=== PATIENT | male | born 1930 | race Caucasian/White ===

== ENCOUNTER 2016-05-30 09:53 | Inpatient (IN) | payer OTHER ==
[~2016-05-30] VITALS: Ht 170.2 cm; Wt 73.5 kg
[2016-05-30] MEDS ORDERED: FUROSEMIDE20 M1 PO (09:59)
[2016-05-30] MEDS ORDERED: SPIRONOLACTONE25 M1 PO (09:59)
[2016-05-30] MEDS ORDERED: VITAMIN B-121000 MC3 PO (10:00)
[2016-05-30] MEDS ORDERED: CARVEDILOL12.5 M1 PO (10:01)
[2016-05-30] MEDS ORDERED: CLOPIDOGREL75 M1 PO (10:01)
[2016-05-30] MEDS ORDERED: ISOSORBIDE MONO30 M1 PO (10:01)
[2016-05-30] MEDS ORDERED: ATORVASTATIN CA40 M1 PO (10:02)
[2016-05-30] MEDS ORDERED: VITAMIN D31000 UNI2 PO (10:03)
--- NOTE | 2016-05-30 10:10 | ED MVC/FALL/TRAUMA COMPLAINT ---
History of Present Illness General Chief Complaint: Fall Stated Complaint: BIBA MECHANICAL FALL Source: patient, old records, EMS Exam Limitations: no limitations Vital Signs & Intake/Output Vital Signs & Intake/Output Vital Signs Date Time Temp Pulse Resp B/P Pulse O2 O2 Flow FiO2 Ox Delivery Rate 06/01 1735 98.3 118/70 93 Room Air 06/01 1609 98.2 67 18 108/60 93 06/01 1153 Room Air 2.0L 06/01 0843 97.7 93 18 120/60 94 Room Air 06/01 0835 120/60 05/31 2340 97.8 70 18 144/68 95 Room Air 05/31 2114 118/64 ED Intake and Output 06/01 0000 05/31 1200 Intake Total 525 1150 Output Total 1850 950 Balance -1325 200 Intake, IV 225 1150 Intake, Oral 300 0 Number 0 Bowel Movements Output, Other 200 Output, Urine 1850 750 Allergies Coded Allergies: acetaminophen (From PERCOCET) (HALLUCINATIONS 05/30/16) oxycodone (From PERCOCET) (HALLUCINATIONS 05/30/16) Reconcile Medications Atorvastatin Calcium 40 MG TABLET 1 TAB PO DAILY CHOLESTEROL (Reported) Carvedilol 12.5 MG TABLET 1 TAB PO BID HEART (Reported) Cholecalciferol (Vitamin D3) (Unknown Strength) TABLET (Unknown Dose) PO BID SUPPLEMENT (Reported) Clopidogrel Bisulfate (Clopidogrel) 75 MG TABLET 1 TAB PO DAILY BLOOD THINNER (Reported) Cyanocobalamin (Vitamin B-12) 1,000 MCG TABLET 1 TAB PO DAILY SUPPLEMENT ( Reported) Furosemide 20 MG TABLET 1 TAB PO DAILY WATER PILL (Reported) Isosorbide Mononitrate (Isosorbide Mononitrate ER) 30 MG TAB.ER.24H 1 TAB PO DAILY HEART (Reported) Spironolactone 25 MG TABLET 1 TAB PO DAILY HEART (Reported) Triage Note: BIBA FROM HOME, FELL AT HOME, MISSED LAST STAIR, C/O R HIP PAIN, DENIES CHEST PAIN, DIZZINESS, SOB PRIOR TO FALL. MOVING EXTREMITIES, NO ROTATION NOTED. + PEDAL PULSES. Triage Nurses Notes Reviewed? yes HPI: Patient is an 85 year old male presents complaining of right hip and pelvic pain s/p fall. Patient was walking down stairs this morning when he missed a stair and fell onto his right side. Patient was on the ground for approximately 20 minutes. Pain is moderate to the right hip and pelvis, severe with palpation and range of motion. Patient denies head injury, loss of consciousness, neck pain, back pain, numbness, syncope, lightheadedness, chest pain. (ARABELLA NOBLE) Past History Travel History Traveled to [place] past 21 day No Medical History Any Pertinent Medical History? see below for history Neurological: CVA Cardiovascular: hypertension, hyperlipidemia, myocardial infarction Respiratory: pulmonary nodule? Gastrointestinal: AAA Surgical History Surgical History: bilateral knee replacements Psychosocial History What is your primary language Turkish Tobacco Use: Never used ETOH Use: occasional use Family History Hx Contributory? No (ARABELLA NOBLE) Review of Systems Review of Systems Constitutional: Reports: no symptoms. Eyes: Reports: no symptoms. Ears, Nose, Throat, Mouth: Reports: no symptoms. Respiratory: Denies: cough, short of breath. Cardiovascular: Denies: chest pain, syncope. Gastrointestinal/Abdominal: Denies: abdominal pain, vomiting. Genitourinary: Reports: no symptoms. Musculoskeletal: Reports: see HPI. Skin: Reports: no symptoms. Neurological/Psychological: Denies: headache, numbness. (ARABELLA NOBLE) Physical Exam Physical Exam General Appearance: well developed/nourished, alert, awake Head: atraumatic Eyes: Bilateral: normal appearance, PERRL, EOMI. Ears, Nose, Throat, Mouth: hearing grossly normal, moist mucous membrane Neck: normal inspection, supple, full range of motion, no midline tenderness, no paraspinal tenderness Respiratory: normal breath sounds, chest non-tender, no respiratory distress, lungs clear Cardiovascular: regular rate/rhythm Peripheral Pulses: 2+ tibialis posterior (R), 2+ tibialis posterior (L), 2+ dorsalis pedis (R), 2+ dorsalis pedis (L) Gastrointestinal: normal bowel sounds, soft, non-tender Back: normal inspection, normal range of motion, no vertebral tenderness, pain increases to right hip with lumbar flexion Extremities: tenderness right lateral hip and right pelvis. No tenderness to left lower extremity, right upper extremity or left upper extremity Normal left hip flexion actively. Pain increases with right hip flexion. Neurologic/Psych: no motor/sensory deficits, awake, alert, oriented x 3, normal mood/affect, professional model II-XII nml as tested Skin: intact, normal color, warm/dry Core Measures ACS in differential dx? No Severe Sepsis Present: No Septic Shock Present: No (JERAMY COHEN,ARABELLA) Progress Differential Diagnosis: aoritic dissection, abd injury, C/T/L spine injury, ext injury, ICH, pelvis injury, pnemothorax, spinal cord injury Plan of Care: Orders Procedure Date/time Status Anticipated Discharge 06/03 UNK Active PROTHROMBIN TIME 06/02 06 Active CBC WITHOUT DIFFERENTIAL 06/02 06 Active Nursing Misc 06/01 1431 Active PHOSPHORUS 06/01 0640 Complete MAGNESIUM 06/01 0640 Complete CALCIUM 06/01 0640 Complete CBC WITHOUT DIFFERENTIAL 06/01 06 Complete BASIC ELECTROLYTES PLUS BUN&CR 06/01 06 Complete PT Evaluate & Treat 06/01 UNK Active Therapeutic Activities 06/01 UNK Complete Therapeutic Exercise 06/01 UNK Complete Gait Training 06/01 UNK Complete Lab Add-on Test 06/01 UNK Active Granado, Insertion/Removal/Asses 05/31 UNK Complete Current Medications Sig/Chirag Start time Last Medication Dose Stop Time Status Admin Senna/Docusate Sodium 1 TAB BID PRN 06/01 1615 AC (Senokot S) Polyethylene Glycol 17 GM DAILY 06/01 1607 AC (Miralax) Cyclobenzaprine HCl 5 MG BID PRN 06/01 0745 AC (Flexeril 5MG Tab) Tramadol HCl 50 MG TID PRN 06/01 0745 AC (Ultram) Morphine Sulfate 4 MG Q4P PRN 05/30 1600 AC (Morphine) Laboratory Tests 06/01/16 0640: Anion Gap 6, Estimated GFR 48 L, BUN/Creatinine Ratio 18.6, Calcium 8.6, Phosphorus 2.9, Magnesium 2.0, PT 13.5 H, INR 1.29 H, CBC w Diff NO MAN DIFF REQ, RBC 3.04 L, MCV 99.7 H, MCH 33.7 H, RDW 14.4, MPV 8.4, Gran % 66.8, Lymphocytes % 18.5 L, Monocytes % 10.8 H, Eosinophils % 3.5, Basophils % 0.4, Absolute Granulocytes 4.0, Absolute Lymphocytes 1.1 L, Absolute Monocytes 0.6, Absolute Eosinophils 0.2, Absolute Basophils 0, PUBS MCHC 33.8 Patient declined pain medication on initial exam. 1025: Patient now requesting medication for pain. Patient's daughter requesting no opiates if possible. IV ofirmev ordered. Discussed with Dr. Finney. 1120: Discussed results of x-ray with the patient and his daughter. CT scan of the pelvis ordered. 1130: Patient now reporting right shoulder pain, and he is unsure now if he hit his head when he fell. Patient re-evaluated. Tenderness right anterior shoulder. Full active range of motion of right upper extremity. Additional CT imgaing ordered. Discussed with Dr. Ang 1330: Discussed with Dr. Gonzalez: will review CT scans. If fracture does not extend into the intertroch then would be nonoperative 1344: Discussed with Dr. Larson for admission 1420: Dr. Gonzalez reviewed CT scan, CT scan unclear greater troch vs inter troch, recommends MRI for further evaluation. (JERAMY COHEN,ARABELLA) Diagnostic Imaging: Viewed by Me: Radiology Read. Discussed w/RAD: Radiology Read. Radiology Impression: PATIENT: MATTI HACKETT PRESENT AGE: 85 PATIENT ACCOUNT NO: [id number] : 30 LOCATION: [facility] ORDERING PHYSICIAN: ARABELLA COHEN SERVICE DATE: 05/30/16 EXAM TYPE: RAD - XRY-HIP 2-3 VIEWS, RIGHT EXAMINATION: XR HIP, RIGHT CLINICAL INFORMATION: Evaluate for fracture. COMPARISON: None. TECHNIQUE: AP pelvis and 2 views of the right hip FINDINGS: Normal bony dilatation. Subtle cortical irregularity noted along the right greater trochanteric region no gross fracture lines identified. Evaluation on the lateral radiograph is limited. Degenerative changes bilateral hips. Patient has endovascular aortoiliac stent. Surgical clip is bilateral groins. IMPRESSION: Osseous irregularity right greater trochanteric region . No gross fracture lines identified. If clinical concern for fracture, CT scan may be of value. DICTATED BY: MARCUS ALONSO MD DATE/TIME DICTATED:1105 TWISTING PRESS OPERATOR:JASMIN DATE/TIME TRANSCRIBED:05/30/161105 CONFIDENTIAL, DO NOT COPY WITHOUT APPROPRIATE AUTHORIZATION. <Electronically signed in Other Vendor System> SIGNED BY: MARCUS ALONSO MD 05/30/16 1113, PATIENT: MATTI HACKETT PRESENT AGE: 85 PATIENT ACCOUNT NO: [id number] : 30 LOCATION: [facility] ORDERING PHYSICIAN: ARABELLA COHEN SERVICE DATE: 05/30/16 EXAM TYPE: CAT - CT CERV SPINE WO IV CONTRAST; CT HEAD WO IV CONTRAST EXAMINATION: CT HEAD W/O IV CONTRAST CT CERVICAL SPINE W/O IV CONTRAST CLINICAL INFORMATION: 85-year-old male with neck pain after fall. Possible intracranial bleed. COMPARISON: CT of the head from . TECHNIQUE: Head - Contiguous axial imaging of the head was performed from the skull base to the vertex without the administration of intravenous contrast, and axial images reconstructed at 0.625 mm , 2.5 mm and 5 mm slice thickness. Cervical spine - Volumetric, helical CT acquisition of the cervical spine was obtained without contrast; in addition to the standard set of axial images, multiplanar reformatted images were provided in the coronal and sagittal imaging planes. DLP: 948 mGy-cm (total) FINDINGS: HEAD: There is an area of chronic encephalomalacia located high within the right cerebral hemisphere at the level of the postcentral gyrus. No signs of an acute major vascular territory infarction, hemorrhage, extra-axial fluid collection, focal mass effect or midline shift. There is atherosclerotic calcification of the cavernous carotid and vertebral arteries. There is an old, small lacunar infarction of the left caudate head. Mild atrophy of cerebral and cerebellar hemispheres associated with symmetric prominence of the ventricles and sulci. The calvarium is intact and the visualized paranasal sinuses, mastoid air cells and middle ear cavities are clear. There have been ocular lens extractions. CERVICAL SPINE: The occipital condyles, atlas, axis and atlantoaxial articulation are intact. No acute fractures within anterior or posterior elements of the degenerated cervical spine. Chondrocalcinosis of intervertebral discs and of the transverse ligament located posterior to the dens. Multilevel degenerative disc space narrowing and osteophyte formation, with degenerative disc disease pronounced at C5-C6 and C6-C7. There is lack of lordotic curvature of the degenerated spine. There is multilevel, predominantly left-sided facet osteoarthritis. At C3-C4, the facet osteoarthritis and mild disc degeneration are associated with 2-3 mm anterolisthesis of C3 on C4. Also, there is minimal degenerative anterolisthesis of C4 on C5. The uncovertebral joint hypertrophy of C5-C6 and C6-C7 results in severe bilateral neural foraminal stenosis at these levels. No prevertebral soft tissue edema or paraspinal hematoma. Thyroid gland is unremarkable. No pathologic sized lymph nodes within the examined neck. No acute findings within the lung apices. IMPRESSION: 1. No acute intracranial pathology compared to 2. No acute fractures within the degenerated cervical spine. 3. Moderate -to-severe degenerative disc disease and uncovertebral joint hypertrophy of C5- C6 and C6-C7. There is severe bilateral neural foraminal stenosis at these levels. . DICTATED BY: ANGEL SERNA MD DATE/TIME DICTATED:05/30/161240 TWISTING PRESS OPERATOR:JASMIN DATE/TIME TRANSCRIBED:05/30/161240 CONFIDENTIAL, DO NOT COPY WITHOUT APPROPRIATE AUTHORIZATION. <Electronically signed in Other Vendor System> SIGNED BY: ANGEL SERNA MD 05/30/16 1255, PATIENT: MATTI HACKETT PRESENT AGE: 85 PATIENT ACCOUNT NO: [id number] : 30 LOCATION: [facility] ORDERING PHYSICIAN: ARABELLA COHEN SERVICE DATE: 05/30/16 EXAM TYPE: CAT - CT CHEST WO IV CONTRAST; CT PELVIS WO IV CONTRAST EXAMINATION: CT CHEST AND CT PELVIS WITHOUT CONTRAST CLINICAL INFORMATION: Status post fall. Chest wall pain. COMPARISON: Chest x-ray most recent prior dated 04/28/2014 CT abdomen and pelvis dated 11/22/2011 TECHNIQUE: Helical scanning was performed with submillimeter collimation through the pelvis. Sagittal and coronal multiplanar 2-D reconstructions were obtained. DLP: 341.67 (chest) and mGy-cm. FINDINGS: CHEST LUNGS: No evidence of pneumothorax. Stable 0.4 cm nodular opacity right upper lobe (series 3 image 28) Stable 0.4 cm nodule left lower lobe (series 3 image 34). Pleural-based plaque-like nodular opacity right lower lobe (series 3 image 34). Dependent atelectatic changes. MEDIASTINUM: Atherosclerotic disease with intimal calcification of the aorta and the coronary arteries. Ectatic ascending aorta noted again. Slight interval increase in the size of the right precarinal lymph nodes measuring approximately 1 cm (series 2 image 24). Smaller mediastinal lymph nodes identified. Unremarkable thyroid gland. No evidence of mediastinal hematoma. CHEST WALL: No gross evidence of chest wall hematoma. UPPER ABDOMEN: Aneurysmal dilatation noted again at the level of the renal arteries measuring approximately 5 cm in the transverse diameter. It demonstrates slight interval increase compared to the previous examination. Endovascular aortic stent incompletely included in examination. OSSEOUS STRUCTURES: No acute osseous abnormality. Chronic degenerative changes. No acute fracture lines identified PELVIS: There is a minimally displaced fracture right greater trochanter best visualized on the coronal reformatted images (image [id number]) The remaining right hip is intact. No obvious extension into the intertrochanteric region. Degenerative changes bilateral hips and lower lumbar spine. Adjacent soft tissues do not demonstrate any gross hematoma formation. Visualized bowel loops do not demonstrate any acute abnormality. Aortoiliac endovascular stents are partially visualized. Unremarkable urinary bladder. No abnormal fluid collection. OSSEOUS STRUCTURES: Minimally displaced right greater trochanteric fracture. IMPRESSION: 1. Stable previously seen pulmonary nodules. New pleural-based plaque-like nodular opacity right lower lobe. 2. Mild interval increase in the right precarinal lymph node measuring 1 cm in short axis. Monitoring of the CT chest finding is recommended. 3. Slight interval increase in the known abdominal aortic aneurysm. Aneurysmal dilatation measures approximately 5 cm in the transverse diameter. 4. Mildly displaced right greater trochanteric fracture. No evidence of extension into the intertrochanteric region. DICTATED BY: MARCUS ALONSO MD DATE/TIME DICTATED:05/30 TWISTING PRESS OPERATOR:JASMIN DATE/TIME TRANSCRIBED:05/30/161236 CONFIDENTIAL, DO NOT COPY WITHOUT APPROPRIATE AUTHORIZATION. <Electronically signed in Other Vendor System> SIGNED BY: MARCUS ALONSO MD 05/30/16 1315, PATIENT: MATTI HACKETT PRESENT AGE: 85 PATIENT ACCOUNT NO: [id number] : 30 LOCATION: [facility] ORDERING PHYSICIAN: ARABELLA COHEN SERVICE DATE: 05/30/164773 EXAM TYPE: RAD - XRY-SHOULDER COMPLETE-RIGHT EXAMINATION: XR SHOULDER, RIGHT CLINICAL INFORMATION: Pain. Evaluate for fracture. COMPARISON: X-ray chest dated 12/30/2015 TECHNIQUE: 3 views FINDINGS: Evaluation of the proximal right humerus and humeral head is limited due to internal rotation. No acute fracture lines appreciated. No gross dislocation. Mild subluxation cannot be excluded. However, somewhat similar appearance was seen on the prior chest x-ray. Slight widening of the right acromion clavicular joint also seen on the previous examination with no significant interval change. Subtle distal clavicular osteolysis cannot be excluded. Differential possibility includes old postoperative change. IMPRESSION : 1. No acute fracture identified. Evaluation limited due to internal rotation of the right humeral head. 2. Stable right acromioclavicular joint. DICTATED BY: MARCUS ALONSO MD DATE/TIME DICTATED:05/30/161405 TWISTING PRESS OPERATOR:JASMIN DATE/TIME TRANSCRIBED:05/30/161405 CONFIDENTIAL, DO NOT COPY WITHOUT APPROPRIATE AUTHORIZATION. <Electronically signed in Other Vendor System> SIGNED BY: MARCUS ALONSO MD 05/30/16 1412 Initial ED EKG: initial EKG with significant artifact unclear if atrial fibrillation versus sinus rhythm. EKG repeated showing sinus rhythm with right bundle branch block and left anterior fascicular block similar to previous EKG Prior EKG: unchanged (ARABELLA NOBLE) Departure Departure Time of Disposition: 1420 Disposition: STILL A PATIENT Condition: Stable Clinical Impression Primary Impression: Abdominal aortic aneurysm (AAA) Secondary Impressions: Closed right hip fracture Qualifiers: Encounter type: initial encounter Qualified Code: S72.001A - Fracture of unspecified part of neck of right femur, initial encounter for closed fracture Pulmonary nodules Referrals: NAY LARSON MD (PCP/Family) Referred to [facility] as new patient No Departure Forms: Customer Survey General Discharge Information Admission Note Spoke With: NAY LARSON MD Documentation of Exam: Documentation of any treatments & extenuating circumstances including Concerns Regarding Discharge (functional status, medication knowledge or non-compliance, living conditions, etc.) that warrant an admission rather than observation: Orthopedic consultation, physical therapy consultation, requiring IV medication for pain control. Patient unable to sit up or attempt cannulation secondary to pain. (ARABELLA NOBLE) PA/INTRANET SUPPORT Co-Sign Statement Statement: ED Attending supervision documentation- [X] I saw and evaluated the patient. I have also reviewed all the pertinent lab results and diagnostic results. I agree with the findings and the plan of care as documented in the PA's/INTRANET SUPPORT's documentation. [] I have reviewed the ED Record and agree with the PA's/IN[employer] SUPPORT's documentation. [] Additions or exceptions (if any) to the PAs/INTRAN[employer] SUPPORT's note and plan are summarized below: [] (LIAM VASQUEZ,BALDEV Mtz)
--- NOTE | 2016-05-30 11:13 | RADIOLOGY REPORT ---
EXAMINATION: XR HIP, RIGHT CLINICAL INFORMATION: Evaluate for fracture. COMPARISON: None. TECHNIQUE: AP pelvis and 2 views of the right hip FINDINGS: Normal bony dilatation. Subtle cortical irregularity noted along the right greater trochanteric region no gross fracture lines identified. Evaluation on the lateral radiograph is limited. Degenerative changes bilateral hips. Patient has endovascular aortoiliac stent. Surgical clip is bilateral groins. IMPRESSION: Osseous irregularity right greater trochanteric region . No gross fracture lines identified. If clinical concern for fracture, CT scan may be of value.
--- NOTE | 2016-05-30 12:55 | CT SCAN REPORT ---
EXAMINATION: CT HEAD W/O IV CONTRAST CT CERVICAL SPINE W/O IV CONTRAST CLINICAL INFORMATION: 85-year-old male with neck pain after fall. Possible intracranial bleed. COMPARISON: CT of the head from 01/05/2016. TECHNIQUE: Head - Contiguous axial imaging of the head was performed from the skull base to the vertex without the administration of intravenous contrast, and axial images reconstructed at 0.625 mm , 2.5 mm and 5 mm slice thickness. Cervical spine - Volumetric, helical CT acquisition of the cervical spine was obtained without contrast; in addition to the standard set of axial images, multiplanar reformatted images were provided in the coronal and sagittal imaging planes. DLP: 948 mGy-cm (total) FINDINGS: HEAD: There is an area of chronic encephalomalacia located high within the right cerebral hemisphere at the level of the postcentral gyrus. No signs of an acute major vascular territory infarction, hemorrhage, extra-axial fluid collection, focal mass effect or midline shift. There is atherosclerotic calcification of the cavernous carotid and vertebral arteries. There is an old, small lacunar infarction of the left caudate head. Mild atrophy of cerebral and cerebellar hemispheres associated with symmetric prominence of the ventricles and sulci. The calvarium is intact and the visualized paranasal sinuses, mastoid air cells and middle ear cavities are clear. There have been ocular lens extractions. CERVICAL SPINE: The occipital condyles, atlas, axis and atlantoaxial articulation are intact. No acute fractures within anterior or posterior elements of the degenerated cervical spine. Chondrocalcinosis of intervertebral discs and of the transverse ligament located posterior to the dens. Multilevel degenerative disc space narrowing and osteophyte formation, with degenerative disc disease pronounced at C5-C6 and C6-C7. There is lack of lordotic curvature of the degenerated spine. There is multilevel, predominantly left-sided facet osteoarthritis. At C3-C4, the facet osteoarthritis and mild disc degeneration are associated with 2-3 mm anterolisthesis of C3 on C4. Also, there is minimal degenerative anterolisthesis of C4 on C5. The uncovertebral joint hypertrophy of C5-C6 and C6-C7 results in severe bilateral neural foraminal stenosis at these levels. No prevertebral soft tissue edema or paraspinal hematoma. Thyroid gland is unremarkable. No pathologic sized lymph nodes within the examined neck. No acute findings within the lung apices. IMPRESSION: 1. No acute intracranial pathology compared to 01/05/2016 2. No acute fractures within the degenerated cervical spine. 3. [id number] degenerative disc disease and uncovertebral joint hypertrophy of C5-C6 and C6-C7. There is severe bilateral neural foraminal stenosis at these levels. .
--- NOTE | 2016-05-30 13:15 | CT SCAN REPORT ---
EXAMINATION: CT CHEST AND CT PELVIS WITHOUT CONTRAST CLINICAL INFORMATION: Status post fall. Chest wall pain. COMPARISON: Chest x-ray most recent prior dated 04/28/2014 CT abdomen and pelvis dated 11/22/2011 TECHNIQUE: Helical scanning was performed with submillimeter collimation through the pelvis. Sagittal and coronal multiplanar 2-D reconstructions were obtained. DLP: 341.67 (chest) and mGy-cm. FINDINGS: CHEST LUNGS: No evidence of pneumothorax. Stable 0.4 cm nodular opacity right upper lobe (series 3 image 28) Stable 0.4 cm nodule left lower lobe (series 3 image 34). Pleural-based plaque-like nodular opacity right lower lobe (series 3 image 34). Dependent atelectatic changes. MEDIASTINUM: Atherosclerotic disease with intimal calcification of the aorta and the coronary arteries. Ectatic ascending aorta noted again. Slight interval increase in the size of the right precarinal lymph nodes measuring approximately 1 cm (series 2 image 24). Smaller mediastinal lymph nodes identified. Unremarkable thyroid gland. No evidence of mediastinal hematoma. CHEST WALL: No gross evidence of chest wall hematoma. UPPER ABDOMEN: Aneurysmal dilatation noted again at the level of the renal arteries measuring approximately 5 cm in the transverse diameter. It demonstrates slight interval increase compared to the previous examination. Endovascular aortic stent incompletely included in examination. OSSEOUS STRUCTURES: No acute osseous abnormality. Chronic degenerative changes. No acute fracture lines identified PELVIS: There is a minimally displaced fracture right greater trochanter best visualized on the coronal reformatted images (image [id number]) The remaining right hip is intact. No obvious extension into the intertrochanteric region. Degenerative changes bilateral hips and lower lumbar spine. Adjacent soft tissues do not demonstrate any gross hematoma formation. Visualized bowel loops do not demonstrate any acute abnormality. Aortoiliac endovascular stents are partially visualized. Unremarkable urinary bladder. No abnormal fluid collection. OSSEOUS STRUCTURES: Minimally displaced right greater trochanteric fracture. IMPRESSION: 1. Stable previously seen pulmonary nodules. New pleural-based plaque-like nodular opacity right lower lobe. 2. Mild interval increase in the right precarinal lymph node measuring 1 cm in short axis. Monitoring of the CT chest finding is recommended. 3. Slight interval increase in the known abdominal aortic aneurysm. Aneurysmal dilatation measures approximately 5 cm in the transverse diameter. 4. Mildly displaced right greater trochanteric fracture. No evidence of extension into the intertrochanteric region.
--- NOTE | 2016-05-30 13:58 | History & Physical ---
CELESTE VASQUEZ,[facility] 05/30/16 1358: General Information and HPI MD Statement: I have seen and personally examined MATTI HACKETT and documented this H&P. The patient is a 85 year old M who presented with a patient stated chief complaint of mechanical fall Source of Information: patient, family Exam Limitations: no limitations History of Present Illness: This is a 85-year-old male with past medical history of CAD status post [place], TIA, hypertension, congestive heart failure, hyperlipidemia, AAA status post surgery and stent placement, questionable lung nodule, presents with chief complaint of mechanical fall. He reported that early in the morning while he was going outside to visit his was currently being admitted in a short-term rehabilitation facility, while stepping out of his door he missed one stair and fell on the ground. He reports that he was on the floor for almost half an hour as he couldn't get up and was then seen by bystander who called EMS and he was brought to the ER for further evaluation. He reported pain in his right shoulder and right hip. He lives with his , and is able to do his daily chores by himself. He is an ex-smoker , denies alcohol use, denies any drug abuse. Allergies/Medications Allergies: Coded Allergies: acetaminophen (From PERCOCET) (HALLUCINATIONS 05/30/16) oxycodone (From PERCOCET) (HALLUCINATIONS 05/30/16) Home Med list Atorvastatin Calcium 40 MG TABLET 1 TAB PO DAILY CHOLESTEROL (Reported) Carvedilol 12.5 MG TABLET 1 TAB PO BID HEART (Reported) Cholecalciferol (Vitamin D3) (Unknown Strength) TABLET (Unknown Dose) PO BID SUPPLEMENT (Reported) Clopidogrel Bisulfate (Clopidogrel) 75 MG TABLET 1 TAB PO DAILY BLOOD THINNER (Reported) Cyanocobalamin (Vitamin B-12) 1,000 MCG TABLET 1 TAB PO DAILY SUPPLEMENT ( Reported) Furosemide 20 MG TABLET 1 TAB PO DAILY WATER PILL (Reported) Isosorbide Mononitrate (Isosorbide Mononitrate ER) 30 MG TAB.ER.24H 1 TAB PO DAILY HEART (Reported) Spironolactone 25 MG TABLET 1 TAB PO DAILY HEART (Reported) Compliance With Home Meds: GOOD Past History Travel History Traveled to [place] past 21 day No Medical History Neurological: CVA EENT: NONE Cardiovascular: hypertension, hyperlipidemia, myocardial infarction, peripheral vascular disease Respiratory: pulmonary nodule? Gastrointestinal: AAA Hepatic: NONE Renal: chronic kidney disease Musculoskeletal: NONE Surgical History Surgical History: bilateral knee replacements Past Family/Social History Family History Relations & Conditions if any FATHER Relation not specified for: FH: prostate cancer Psychosocial History Where do you live? Home Who Do You Live With? spouse Services at Home: None Primary Language: Cypriot Smoking Status: Former Smoker ETOH Use: occasional use Illicit Drug Use: denies illicit drug use Functional Ability ADLs Independent: dressing, eating, toileting, bathing. Ambulation: independent IADLs Independent: shopping, housework, finances, food prep, telephone, transportation , medication admin. Review of Systems Review of Systems Constitutional: Reports: see HPI. Exam & Diagnostic Data Last 24 Hrs of Vital Signs/I&O Vital Signs Date Time Temp Pulse Resp B/P Pulse O2 O2 Flow FiO2 Ox Delivery Rate 05/30 1702 97.7 59 20 128/72 93 05/30 1506 97.5 58 18 139/76 95 Room Air 05/30 1237 96.6 62 12 160/72 98 Room Air 05/30 1006 97.2 60 18 171/81 99 Room Air Intake & Output 05/30 1600 05/30 0800 05/30 0000 Intake Total 100 Output Total 200 Balance -100 Intake, IV 100 Intake, Oral 0 Output, Urine 200 Patient 73.482 kg Weight Physical Exam General Appearance Alert, Oriented X3, Cooperative, No Acute Distress Cardiovascular Regular Rate, Normal S1, Normal S2, systolic murmur Lungs Clear to Auscultation, Normal Air Movement Abdomen Normal Bowel Sounds, Soft, No Tenderness Neurological Normal Speech Extremities No Clubbing, No Cyanosis, No Edema Last 24 Hrs of Labs/Wilnre: Laboratory Tests 05/30/16 1359: Anion Gap 9, Estimated GFR 48 L, BUN/Creatinine Ratio 24.3, Glucose 90, Calcium 9.3, Total Bilirubin 1.2, AST 16 L, ALT 33, Alkaline Phosphatase 80, Total Protein 6.1 L, Albumin 3.4 L, Globulin 2.7, Albumin/Globulin Ratio 1.3, PT 11.4, INR 1.09, APTT 26, CBC w Diff NO MAN DIFF REQ, RBC 3.57 L, MCV 99.1 H, MCH 33.4 H, RDW 14.6 H, MPV 7.8, Gran % 76.5 H, Lymphocytes % 15.0 L, Monocytes % 6.4, Eosinophils % 2.1, Basophils % 0 L, Absolute Granulocytes 5.6, Absolute Lymphocytes 1.1 L, Absolute Monocytes 0.5, Absolute Eosinophils 0.2, Absolute Basophils 0, PUBS MCHC 33.7 Assessment/Plan Assessment: This is a 85-year-old male with past medical history of CAD status post [place], TIA, hypertension, congestive heart failure, hyperlipidemia, AAA status post surgery and stent placement, questionable lung nodule, presents with chief complaint of mechanical fall. Vitals creatinine 1.4, hemoglobin 11.9, platelets 152, white count 7.4 EKG does not show any acute findings. We'll admit the patient to general med floor and monitor for the following: Hip fracture status post fall : MRI hip showed acute fracture of the right greater trochanter with partial intertrochanteric extension anticomplement of the fracture extending longitudinally through The collarbone into the proximal femoral diaphysis. Will keep the patient nothing by mouth for hip surgery Plavix on hold, will continue Lasix 20 mg daily, Lipitor 40 mg daily, carvedilol 12.5 mg twice a day Pain management and morphine IV 4 mg every 4 hour Spironolactone and isosorbide on hold Will follow-up a.m. labs along with monitoring vitals closely As Ranked By This Provider Problem List: 1. Fracture of greater trochanter of right femur 2. Pulmonary nodules 3. Abdominal aortic aneurysm 4. Closed right hip fracture Qualifiers Encounter type: initial encounter Qualified Code: S72.001A - Fracture of unspecified part of neck of right femur, initial encounter for closed fracture Core Measures/Miscellaneous Acute Coronary Syndrome ACS Diagnosis: No Cerebrovascular Accident CVA/TIA Diagnosis: No Congestive Heart Failure CHF Diagnosis: No Venous Thromboembolism VTE Risk Factors: Acute medical illness, Age > 40 VTE Prophylaxis Ordered Inpt: Pharm- Heparin No [facility] VTE prophylaxis d/t: No contraindications No VTE Pharm Prophylaxis d/t: No contraindications VTE Diagnosis: No VTE Type: NONE VTE Confirmed by (Test): NONE Severe Sepsis Severe Sepsis Present: No Septic Shock Septic Shock Present: No Miscellaneous Documentation Attending Case Discussed With: NAY LARSON MD Primary Care Physician: NAY LARSON MD Patient sees these Specialists . Level of Patient Care: General Medicine NAY LARSON MD 05/30/16 1714: Attending MD Review Statement Attending Statement Attending MD Statement: examined this patient, discuss w/resident/PA/BLANKET CUTTING MACHINE OPERATOR, agreed w/resident/PA/BLANKET CUTTING MACHINE OPERATOR, discussed with family, reviewed EMR data (avail), discussed with nursing, discussed with case mgmt, reviewed images, amended to note Attending Assessment/Plan: Seen and examined independently This a gentleman with history of ischemic heart disease, previous history of TIA , hypertension, hyperlipidemia, chronic congestive heart failure, followed [facility], now comes in with hip fracture after an accidental fall. No loss of consciousness. No recent cardiovascular events. He has hypertension, hyperlipidemia, previous CVA, previous history of AAA status post surgery, knee replacement. He has been doing well. He does also have urethral stricture and he did have surgery last year for that. 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 SIGNIFICANT DATA Creatinine 1.4 which is chronic and stable other blood work was reviewed troponin was pending white count 7.4 hemoglobin 11.9 platelets 152. Outpatient medications reviewed. EKG reviewed no acute ST-T segment elevation or depression noted. IMPRESSION this is a gentleman with chronic kidney disease, previous ischemic heart disease with previous [place], hyperlipidemia, peripheral vascular disease, previous AAA repair, who is on clopidogrel for antiplatelet therapy for peripheral vascular disease, hypertension hyperlipidemia now here with a hip fracture. His issues include Hip fracture patient is on antiplatelet therapy would need surgery discussed with surgery and willing to go ahead with surgery despite him being on Plavix He does have ischemic heart disease history no recent evidence of any active ischemia. He's been in is chronic and stable condition. His moderate postoperative cardiovascular risks. He does accept his risk and is willing to undergo surgery if needed. Hypertension and hyperlipidemia stable Ischemic heart disease hypertension stable Recommendation Keep nothing by mouth Patient is cleared for surgery Continue his anti-hypertensive and the cholesterol lowering drugs Hold spironolactone and isosorbide if his blood pressure is good Serial EKG Follow hemoglobin and hematocrit We will follow closely patient is DNR/DNI XIOMARA BOSS 05/30/162118: Resident Review Statement Resident Statement: examined this patient, discussed with international trade specialist, agreed with international trade specialist Other Findings: Patient is 85-year-old gentleman admitted on medical history significant for hypertension, hyperlipidemia, abnormal aortic aneurysm status post stent placement, history of lung nodule followed by Dr. Lasron, history of CAD status post [place] and TIA came with chief complaint of mechanical fall this morning when he was getting out of his house and missed one step and fell and hit his right shoulder and hip. He denies any dizziness, palpitations, chest pain, headache, blurring vision or diaphoresis before and after a fall. He denies frequent falls and denied any gait imbalance. His admission vitals signs were temperature 90.7, pulse 60, respiratory 18, blood pressure 171 and he was saturating 99%. Admission labs were WBC count 7.4, hemoglobin 11.9 hematocrit 35.4, platelets 152, sodium 137 potassium 4.4, degenerative 4 and creatinine 1.4. MRI of hip showed acute fracture of right intertrochanteric has partial intertrochanteric extension, there is combination of fracture extends longitudinally through the trabecular bone into the proximal femoral diaphysis Physical examination Alert and oriented 3 Head atraumatic Neck supple Chest clear to auscultate Heart S1 and S2 with no added sounds Lower extremity showed no cyanosis and mild edema was noted Assessment and plan Patient is 85-year-old gentleman with history of hypertension, history of AAA status post repair and stent placement, history of CAD and [place] in the past came to ER after a mechanical fall resulting in right hip fracture. We'll admit patient on general medical floor and was taken for the following problems Problem #1 right hip fracture after mechanical fall Vital signs every shift We'll resume his home medications We'll keep patient nothing by mouth for surgery Patient is a moderate risk for surgery and 6.6% chances of major cardiac events perioperatively. We will hold Plavix and will start patient on heparin subcutaneous for DVT prophylaxis Problem #2 history of hypertension, CAD, hyperlipidemia Resume his statins and carvedilol along with Lasix but we will hold spironolactone and isosorbide perioperatively and we might resume postoperatively later after assessing the patient. The patient is currently nothing by mouth waiting for surgery DVT prophylaxis subcutaneous heparin DNI DNR
--- NOTE | 2016-05-30 14:12 | RADIOLOGY REPORT ---
EXAMINATION: XR SHOULDER, RIGHT CLINICAL INFORMATION: Pain. Evaluate for fracture. COMPARISON: X-ray chest dated 12/30/2015 TECHNIQUE: 3 views FINDINGS: Evaluation of the proximal right humerus and humeral head is limited due to internal rotation. No acute fracture lines appreciated. No gross dislocation. Mild subluxation cannot be excluded. However, somewhat similar appearance was seen on the prior chest x-ray. Slight widening of the right acromion clavicular joint also seen on the previous examination with no significant interval change. Subtle distal clavicular osteolysis cannot be excluded. Differential possibility includes old postoperative change. IMPRESSION: 1. No acute fracture identified. Evaluation limited due to internal rotation of the right humeral head. 2. Stable right acromioclavicular joint.
[2016-05-30 14:17] LABS: ABSOLUTE BASOPHIL COUNT 0 /CUMM (0.0-0.2); ABSOLUTE EOSINOPHIL COUNT 0.2 /CUMM (0.0-0.7); ABSOLUTE GRANULOCYTE CT 5.6 /CUMM (1.4-6.5); ABSOLUTE LYMPH COUNT 1.1 /CUMM (1.2-3.4); ABSOLUTE MONOCYTE COUNT 0.5 /CUMM (0.10-0.60); BASOPHIL % 0 % (0.0-2.0); EOSINOPHIL % 2.1 % (0-5); GRANULOCYTE % 76.5 % (42.2-75.2); HEMATOCRIT 35.4 % (42-52); MEAN CORPUSCULAR HGB 33.4 PG (27.0-31.0); MEAN CORPUSCULAR HGB CONC 33.7 G/DL (33.0-37.0); MEAN CORPUSCULAR VOLUME 99.1 FL (80.0-94.0); MEAN PLATELET VOLUME 7.8 FL (7.4-10.4); PLATELET COUNT 152 /CUMM (130-400); RBC DISTRIBUTION WIDTH 14.6 % (11.5-14.5); RED BLOOD CELL CT 3.57 /CUMM (4.70-6.10); WHITE BLOOD CELL COUNT 7.4 /CUMM (4.8-10.8)
[2016-05-30 14:18] LABS: PT 11.4 SEC (9.4-12.5); PTT 26 SEC (25-37)
--- NOTE | 2016-05-30 17:01 | MRI REPORT ---
EXAMINATION: MRI RIGHT HIP WITHOUT CONTRAST CLINICAL INFORMATION: 85-year-old male with right hip pain after recent fall. Evaluate for greater trochanteric versus intertrochanteric fracture. COMPARISON: CT of the pelvis from 05/30/2016. TECHNIQUE: Noncontrast MR imaging examination of the right hip was performed on a 1.5 Nabila magnet using coronal and sagittal T1-weighted, coronal T2-weighted, and multiplanar fat-suppressed T2-weighted sequences. FINDINGS: Within the visualized lower lumbar spine, there are bulging discs with traction osteophyte formation. Bones have normal alignment at the sacroiliac joints, hips and pubic symphysis. A small, physiologic amount of fluid is present within the right hip joint. There is an irregular chondral defect of the superolateral aspect of the acetabulum associated with a partial-thickness tear at the base of the superior acetabular labrum, and this is probably chronic (images 14-15, series 6). There is no acetabular fracture. There are small osteophytes of the mildly degenerated hip. The ligamentum teres femoris is attenuated. An acute fracture of the right greater trochanter is not significantly displaced. Fracture line has partial intertrochanteric extension and tapers as it extends toward the lesser trochanter, but does not disrupt the cortex of the lesser trochanter (image 7, series 2). Also, the fracture extends longitudinally through trabecular into the proximal femoral diaphysis without disrupting the diaphyseal cortex. The gluteus medius tendon remains attached to the fractured trochanter, and there is fluid/edema surrounding the trochanter and involving the trochanteric bursa, as well. Incidentally noted is proximal hamstring tendinosis without hamstring tendon tear. The distal iliopsoas tendon has an intact attachment to the lesser trochanter of the femur. IMPRESSION: Acute fracture of the right greater trochanter has partial intertrochanteric extension, and a component of the fracture extends longitudinally through trabecular bone into the proximal femoral diaphysis, as well.
[2016-05-30 17:02] VITALS: BP 128/72
--- NOTE | 2016-05-30 17:12 | Admission Certification ---
Admission Certification Certification Statement - As attending physician, I certify that at the time of - admission, based on clinical presentation, severity of - symptoms, need for further diagnostic testing and - therapeutic interventions, and risk of adverse outcomes - without in-hospital treatment, in my clinical assessment, - this patient requires an acute hospital stay for a minimum - of two nights or longer. I have also considered psychsocial - factors such as support system, advanced age, financial - issues, cognitive issues, and failed out-patient treatments, - past re-admission history, safety of patient, and lack of - compliance as applicable. Specific rationale supporting this admission is: hip fracture
[2016-05-31 01:05] VITALS: BP 148/88
[2016-05-31 05:00] VITALS: BP 131/83
--- NOTE | 2016-05-31 05:37 | PN- Orthopedic ---
Subjective Subjective: POC LAST EVENING AT 1130PM S/P ORIF RIGHT HIP RSTING COMFORTABLY NO MAJOR COMPLAINTS DENIES CP,SOB,NO N+V Objective Vital Signs and I&Os Vital Signs Date Time Temp Pulse Resp B/P Pulse O2 O2 Flow FiO2 Ox Delivery Rate 05/31 0500 97.4 65 18 131/83 96 Nasal 2.0L Cannula 05/31 0105 97.3 61 18 148/88 98 Nasal 2.0L Cannula 05/31 0030 100 Nasal 2.0L Cannula 05/30 1702 97.7 59 20 128/72 93 05/30 1506 97.5 58 18 139/76 95 Room Air 05/30 1237 96.6 62 12 160/72 98 Room Air 05/30 1006 97.2 60 18 171/81 99 Room Air Intake & Output 05/31 0800 05/31 0000 05/30 1600 05/30 0800 05/30 0000 05/29 1600 Intake Total 700 100 Output Total 1200 200 Balance -500 -100 Intake, IV 700 100 Intake, Oral 0 0 Number 0 Bowel Movements Output, Other 200 Output, Urine 1000 200 Patient 162 lb Weight Physical Exam: CV: RRR LUNGS: CLEAR ABD: SOFT, +BS EXT: +CMS LOCAL HEMATOMA(EXPECTED) DRSG DRY Assessment/Plan Assessment/Plan ORTHO STABLE PLAN MAY BE WBAT RIGHT LE EXTREMITY ICE TO RIGHT HIP AT ALL TIMES START COUMADIN FOR DVT PROPHYLAXIS ON 05/31 EVENING STOP HEPARIN AFTER 05/31 PM DOSE CONT ALPS WEHN SUPINE
--- NOTE | 2016-05-31 07:23 | PN- Housestaff ---
Subjective Follow-up For: Hip fracture status post ORIF Subjective: Patient seen and examined this morning. He was lying in bed in in no acute distress, or if was done last night he was complaining of pain at the surgical area, otherwise no complaints, no shortness of breath no chest pain no palpitation, diet has been advanced to regular as per ortho. Patient admits afebrile, vitals within normal limits Review of Systems Constitutional: Denies: see HPI. Objective Last 24 Hrs of Vital Signs/I&O Vital Signs Date Time Temp Pulse Resp B/P Pulse O2 O2 Flow FiO2 Ox Delivery Rate 05/31 1554 97.8 64 18 130/68 94 Room Air 05/31 0915 60 126/80 05/31 0826 97.6 60 18 126/80 95 Room Air 05/31 0500 97.4 65 18 131/83 96 Nasal 2.0L Cannula 05/31 0105 97.3 61 18 148/88 98 Nasal 2.0L Cannula 05/31 0030 100 Nasal 2.0L Cannula Intake & Output 05/31 1600 05/31 0800 05/31 0000 Intake Total 450 700 Output Total 600 1200 Balance -600 450 -500 Intake, IV 450 700 Intake, Oral 0 0 Number 0 Bowel Movements Output, Other 200 Output, Urine 600 1000 Physical Exam General Appearance: Alert, Oriented X3, Cooperative Cardiovascular: Regular Rate, Normal S1, Normal S2, No Murmurs Lungs: Clear to Auscultation, Normal Air Movement Abdomen: Normal Bowel Sounds, Soft, No Tenderness Extremities: rt hip pain Current Medications: Current Medications Sig/Chirag Start time Last Medication Dose Route Stop Time Status Admin Acetaminophen 650 MG Q6P PRN 05/30 1600 AC PO Acetaminophen 1,000 MG Q6P PRN 05/30 1600 AC 05/31 IV 0455 Atorvastatin Calcium 40 MG 1700 05/30 1700 AC 05/31 PO 1724 Carvedilol 12.5 MG BID 05/30 2200 AC 05/31 PO 0915 Cefazolin Sodium 2 GM Q8H 05/31 0500 DC 05/31 N/A 1 UNIT IV 05/31 1329 1412 Dextrose/Sodium 1,000 ML Q13H 05/30 2345 AC 05/31 Chloride IV 1412 Fentanyl Citrate 250 MCG .STK-MED ONE 05/30 2032 DC IM 05/30 2033 Furosemide 20 MG DAILY 05/31 1000 AC 05/31 PO 0915 Heparin Sodium 5,000 UNIT Q8 05/30 1550 DC 05/31 (Porcine) SC 05/31 1400 1411 Hydromorphone HCl 2 MG .STK-MED ONE 05/30 2032 DC IM 05/30 2033 Isosorbide 30 MG DAILY 05/31 1000 CAN Mononitrate PO Morphine Sulfate 2 MG Q4P PRN 05/30 2330 AC 05/30 IV 2330 Morphine Sulfate 4 MG Q4P PRN 05/30 1600 AC IV Spironolactone 25 MG DAILY 05/31 1000 CAN PO Warfarin Sodium 2.5 MG COUMADIN 1700 ONE 05/31 1700 DC 05/31 PO 05/31 1701 1724 Last 24 Hrs of Lab/Wilner Results Last 24 Hrs of Labs/Mics: Laboratory Tests 05/31/16 0700: Anion Gap 8, Estimated GFR 52 L, BUN/Creatinine Ratio 23.1, CBC w Diff NO MAN DIFF REQ, RBC 3.35 L, MCV 98.7 H, MCH 33.4 H, RDW 14.5, MPV 8.1, Gran % 81.5 H, Lymphocytes % 10.1 L, Monocytes % 6.8, Eosinophils % 1.5, Basophils % 0.1, Absolute Granulocytes 5.9, Absolute Lymphocytes 0.7 L, Absolute Monocytes 0.5, Absolute Eosinophils 0.1, Absolute Basophils 0, PUBS MCHC 33.9 Microbiology 05/30 2209 URINE OR: Urine Culture - CAN Cancelled: Cancelled via OE: REDO 05/30 2115 URINE OR: Urine Culture - RES Assessment/Plan Assessment: This is a 85-year-old male with past medical history of CAD status post [place], TIA, hypertension, congestive heart failure, hyperlipidemia, AAA status post surgery and stent placement, questionable lung nodule, presents with chief complaint of mechanical fall. Vitals creatinine 1.4, hemoglobin 11.9, platelets 152, white count 7.4 EKG does not show any acute findings. We'll admit the patient to general med floor and monitor for the following: Hip fracture status post ORIF: MRI hip showed acute fracture of the right greater trochanter with partial intertrochanteric extension anticomplement of the fracture extending longitudinally through The collarbone into the proximal femoral diaphysis. Diet advance to regular, patient tolerating well Plavix on hold, patient started on Coumadin we'll continue on Coumadin for 6 weeks and then will restart Plavix as per ortho, will continue Lasix 20 mg daily , Lipitor 40 mg daily, carvedilol 12.5 mg twice a day Pain management and morphine IV 4 mg every 4 hour Spironolactone and isosorbide on hold Will follow-up a.m. labs along with monitoring vitals closely Problem List: 1. Fracture of greater trochanter of right femur Pain Ratin Pain Location: Right hip Pain Goal: Remain pain free Pain Plan: Morphine IV Tylenol Tomorrow's Labs & Rationales: CBC for H&H monitoring BEP for creatinine monitoring
--- NOTE | 2016-05-31 07:24 | PN- Orthopedic ---
See Addendum Subjective Subjective: No acute overnight events. C/O pain to right groin presently. Denies chest pain, shortness of breath and difficulty. Denies nausea and vomitting. Has holden in place. Objective Vital Signs and I&Os Vital Signs Date Time Temp Pulse Resp B/P Pulse O2 O2 Flow FiO2 Ox Delivery Rate 05/31 0500 97.4 65 18 131/83 96 Nasal 2.0L Cannula 05/31 0105 97.3 61 18 148/88 98 Nasal 2.0L Cannula 05/31 0030 100 Nasal 2.0L Cannula 05/30 1702 97.7 59 20 128/72 93 05/30 1506 97.5 58 18 139/76 95 Room Air 05/30 1237 96.6 62 12 160/72 98 Room Air 05/30 1006 97.2 60 18 171/81 99 Room Air Intake & Output 05/31 0800 05/31 0000 05/30 1600 05/30 0800 05/30 0000 05/29 1600 Intake Total 450 700 100 Output Total 1200 200 Balance 450 -500 -100 Intake, IV 450 700 100 Intake, Oral 0 0 0 Number 0 Bowel Movements Output, Other 200 Output, Urine 1000 200 Patient 162 lb Weight Physical Exam: General: Alert and oriented, no acute distress Cardiac: RRR, s1s2 Pulmonary: Bilateral lung sounds clear to auscutation Abdomen: Non-tender, non-distended Extremities: Moves all extremities, distal sensate intact. SKin warm and well perfused. Calves soft and non-tender, dp pulses palpable bilaterally. Surgical site: Right thigh: Dressing dry and intact, swelling noted, thigh compartment soft Assessment/Plan Assessment/Plan This is a 85 year old male POD 1 s/p ORIF R intertroch fracture -Per surgery standpoint can advance diet -Anticoagulation: Daily coumadin -DVT ppx: ALPS while supine -Labs: f/u CBC, BEP, INR -Continue current pain regimen -Activity: Can be wbat on rle, oob today with pt -Dressing: To be changed tomorrow by surgery team -Primary management to be continued per medicine team
[2016-05-31 07:49] LABS: ABSOLUTE BASOPHIL COUNT 0 /CUMM (0.0-0.2); ABSOLUTE EOSINOPHIL COUNT 0.1 /CUMM (0.0-0.7); ABSOLUTE GRANULOCYTE CT 5.9 /CUMM (1.4-6.5); ABSOLUTE LYMPH COUNT 0.7 /CUMM (1.2-3.4); ABSOLUTE MONOCYTE COUNT 0.5 /CUMM (0.10-0.60); BASOPHIL % 0.1 % (0.0-2.0); EOSINOPHIL % 1.5 % (0-5); GRANULOCYTE % 81.5 % (42.2-75.2); MEAN CORPUSCULAR HGB 33.4 PG (27.0-31.0); MEAN CORPUSCULAR HGB CONC 33.9 G/DL (33.0-37.0); MEAN CORPUSCULAR VOLUME 98.7 FL (80.0-94.0); MEAN PLATELET VOLUME 8.1 FL (7.4-10.4); PLATELET COUNT 147 /CUMM (130-400); RBC DISTRIBUTION WIDTH 14.5 % (11.5-14.5); RED BLOOD CELL CT 3.35 /CUMM (4.70-6.10); WHITE BLOOD CELL COUNT 7.3 /CUMM (4.8-10.8)
[2016-05-31 08:26] VITALS: BP 126/80
--- NOTE | 2016-05-31 09:43 | RADIOLOGY REPORT ---
EXAMINATION: XR HIP, RIGHT CLINICAL INFORMATION: Right hip ORIF. COMPARISON: Plain film study of May 30, 2016 an MRI of May 30, 2016 TECHNIQUE: 7 C-arm views of the right hip were obtained. FINDINGS: 7 images taken in the operating room demonstrate placement of a right compression screw for nondisplaced fracture of the right proximal femur. Metallic hardware appears in good position. No dislocation of the hip is seen. IMPRESSION: Satisfactory appearance of right proximal femoral compression screw
--- NOTE | 2016-05-31 12:12 | PN- Pulmonary ---
Subjective HPI/Critical Care Issues: No acute overnight events. C/O pain to right groin presently. Denies chest pain, shortness of breath and difficulty. Denies nausea and vomitting. Has holden in place. Objective Current Medications: Current Medications Sig/Chirag Start time Last Medication Dose Route Stop Time Status Admin Acetaminophen 650 MG Q6P PRN 05/30 1600 AC PO Acetaminophen 1,000 MG Q6P PRN 05/30 1600 AC 05/31 IV 0455 Atorvastatin Calcium 40 MG 1700 05/30 1700 AC PO Carvedilol 12.5 MG BID 05/30 2200 AC 05/31 PO 0915 Cefazolin Sodium 2 GM Q8H 05/31 0500 AC 05/31 N/A 1 UNIT IV 05/31 1329 0455 Dextrose/Sodium 1,000 ML Q13H 05/30 2345 AC 05/30 Chloride IV 2320 Fentanyl Citrate 250 MCG .STK-MED ONE 05/30 2032 DC IM 05/30 203 Furosemide 20 MG DAILY 05/31 1000 AC 05/31 PO 0915 Heparin Sodium 5,000 UNIT Q8 05/30 1550 AC 05/31 (Porcine) SC 05/31 1400 0455 Hydromorphone HCl 2 MG .STK-MED ONE 05/30 2032 DC IM 05/30 203 Isosorbide 30 MG DAILY 05/31 1000 CAN Mononitrate PO Morphine Sulfate 2 MG Q4P PRN 05/30 2330 AC 05/30 IV 2330 Morphine Sulfate 4 MG Q4P PRN 05/30 1600 AC IV Morphine Sulfate 2 MG ONCE ONE 05/30 1415 DC 05/30 IV 05/30 1416 1422 Morphine Sulfate 0 .STK-MED ONE 05/30 1415 DC .ROUTE Morphine Sulfate 0 .STK-MED ONE 05/30 1248 DC .ROUTE Morphine Sulfate 2 MG ONCE ONE 05/30 1245 DC 05/30 IV 05/30 1246 1253 Spironolactone 25 MG DAILY 05/31 1000 CAN PO Warfarin Sodium 2.5 MG COUMADIN 1700 ONE 05/31 1700 AC PO 05/31 1701 Vital Signs & I&O Last 24 Hrs of Vitals and I&O: Vital Signs Date Time Temp Pulse Resp B/P Pulse O2 O2 Flow FiO2 Ox Delivery Rate 05/31 0915 60 126/80 05/31 0826 97.6 60 18 126/80 95 Room Air 05/31 0500 97.4 65 18 131/83 96 Nasal 2.0L Cannula 05/31 0105 97.3 61 18 148/88 98 Nasal 2.0L Cannula 05/31 0030 100 Nasal 2.0L Cannula 05/30 1702 97.7 59 20 128/72 93 05/30 1506 97.5 58 18 139/76 95 Room Air 05/30 1237 96.6 62 12 160/72 98 Room Air Intake & Output 05/31 1600 05/31 0800 05/31 0000 Intake Total 450 700 Output Total 1200 Balance 450 -500 Intake, IV 450 700 Intake, Oral 0 0 Number 0 Bowel Movements Output, Other 200 Output, Urine 1000 Impression/Plan Impression/Plan Impression/Plan: General: Alert and oriented, no acute distress Cardiac: RRR, s1s2 Pulmonary: Bilateral lung sounds clear to auscutation Abdomen: Non-tender, non-distended Extremities: Moves all extremities, distal sensate intact. SKin warm and well perfused. Calves soft and non-tender, dp pulses palpable bilaterally. Surgical site: Right thigh: Dressing dry and intact, swelling noted, thigh compartment soft IMPRESSION This is a gentleman with chronic kidney disease, previous ischemic heart disease with previous [place], hyperlipidemia, peripheral vascular disease, previous AAA repair, who is on clopidogrel for antiplatelet therapy for peripheral vascular disease, hypertension hyperlipidemia now here with a hip fracture s/p surg on His issues include Pain in the surg site IHD stable Hypertension and hyperlipidemia stable Ischemic heart disease hypertension stable Previous aaa CT findings of the chest reviewed and pt would need ct chest in few months Sig djd cspine Recommendation COnt warfarin and ask ortho regarding plavix Continue his anti-hypertensive and the cholesterol lowering drugs Hold spironolactone and isosorbide if his blood pressure is good Serial EKG Follow hemoglobin and hematocrit We will follow closely patient is DNR/DNI
--- NOTE | 2016-05-31 15:36 | Discharge Summary ---
Visit Information Visit Dates Admission Date: 05/30/16 Discharge Date: 06/22/16 Hospital Course Course Attending Physician: NAY DILL MD Primary Care Physician: NAY DILL MD Hospital Course: Patient is 85-year-old gentleman admitted on medical history significant for hypertension, hyperlipidemia, abnormal aortic aneurysm status post stent placement, history of lung nodule followed by Dr. Dill, history of CAD status post [place] and TIA came with chief complaint of mechanical fall that resulted in Acute fracture of the right greater trochanter which has partial intertrochanteric extension, and a component of the fracture extends longitudinally through trabecular bone into the proximal femoral diaphysis, Patient was admitted to general medical floor and V2 care for the following problems Problem #1 right hip fracture Orthopedic surgery was consulted and patient was operated for right hip ORIF. Postoperatively patient was doing fine. He started working with physical therapy and would be discharged to short-term rehabilitation could be weightbearing at right lower extremity. Postoperatively heparin was stopped and patient was started on Coumadin. transitioned to lovenox for DVT prophylaxis. To continue Lovenox till 07/13/16. Please resume Plavix after Lovenox is finished. 07/13/16 Surgical simi have already been removed. Problem #2 hypertension Patient to be continued on Coreg 6.25 mg twice a day, spironolactone 12.5mg daily and Lasix 20 mg Monday and Monday. Problem #3 history of CAD status post [place], TIA His Plavix was held on admission and we will keep holding it till 07/13/16. Please resume Plavix after Lovenox is finished on 07/13/16,patient has to follow -up with his program trainer within 1-2 weeks. Problem #4 agitation and delirium postoperatively .Patient was combative and delirious postoperatively given Haldol once but due to prolonged QTC was not given later. At one point patient was in restraints and close C. For agitation we avoided benzodiazepines and narcotics. Patient was clearly oriented frequently. Patient was supervised during eating. Patient remained on fall precautions. Patient has been calm and stable, mentating well over last 24 hours , w/o sitter, medically stable for discharge to STR. Zyprexa 2.5mg as needed for delirium. Please follow up with primary care physician, please get ekg and check magnesium frequently while on zyprexa. keep magnesium above 2. Problem #5 Urinary retention Patient has history of urethral stricture and urinary retention and BPH. Patient was retaining 400 mL post void urine and was started on straight cath protocol followed by in place Granado's catheter. His urinary retention was thought to be secondary to anesthesia. Urology was also consulted and patient was kept on Flomax along with voiding trials. Patient is prone to retaining urine, consider straight cath if patient is retaining urine. Urine Culture grew proteus mirabilas patient completed a 5 days course of Ceftin. Problem #6 Elevated QTC Likely from Zyprexa. Requires close monitoring, please get serial ekg if patient given zyprexa. Complications: none Allergies: Coded Allergies: oxycodone (From PERCOCET) (HALLUCINATIONS 05/30/16) Significant Procedures: ORIF RIGHT HIP Pertinent Lab Results: SERVICE DATE: 05/30/16 EXAM TYPE: MRI - MRI-RT HIP W/O KELSEY EXAMINATION: MRI RIGHT HIP WITHOUT CONTRAST CLINICAL INFORMATION: 85-year-old male with right hip pain after recent fall. Evaluate for greater trochanteric versus intertrochanteric fracture. COMPARISON: CT of the pelvis from 05/30/2016. TECHNIQUE: Noncontrast MR imaging examination of the right hip was performed on a 1.5 Nabila magnet using coronal and sagittal T1-weighted, coronal T2-weighted, and multiplanar fat-suppressed T2-weighted sequences. FINDINGS: Within the visualized lower lumbar spine, there are bulging discs with traction osteophyte formation. Bones have normal alignment at the sacroiliac joints, hips and pubic symphysis. A small, physiologic amount of fluid is present within the right hip joint. There is an irregular chondral defect of the superolateral aspect of the acetabulum associated with a partial-thickness tear at the base of the superior acetabular labrum, and this is probably chronic (images 14-15, series 6). There is no acetabular fracture. There are small osteophytes of the mildly degenerated hip. The ligamentum teres femoris is attenuated. An acute fracture of the right greater trochanter is not significantly displaced. Fracture line has partial intertrochanteric extension and tapers as it extends toward the lesser trochanter, but does not disrupt the cortex of the lesser trochanter (image 7, series 2). Also, the fracture extends longitudinally through trabecular into the proximal femoral diaphysis without disrupting the diaphyseal cortex. The gluteus medius tendon remains attached to the fractured trochanter, and there is fluid/edema surrounding the trochanter and involving the trochanteric bursa, as well. Incidentally noted is proximal hamstring tendinosis without hamstring tendon tear. The distal iliopsoas tendon has an intact attachment to the lesser trochanter of the femur. IMPRESSION: Acute fracture of the right greater trochanter has partial intertrochanteric extension, and a component of the fracture extends longitudinally through trabecular bone into the proximal femoral diaphysis, as well. Disposition Summary Disposition Principal Diagnosis: right hip fracture Additional Diagnosis: hypertension Discharge Disposition: SNF Discharge Instructions General Discharge Information Code Status: Do Not Resucitate/Intubat Patient's Diet: Regular diet Patient's Activity: as tolerated with assistance Follow-Up Instructions/Appts: Please follow-up with your primary care physician in one week of discharge Please follow-up with your program trainer in 1-2 weeks of discharge Please follow-up with orthopedic surgery in 1-2 weeks of discharge and get appointment for staple removal and follow-up x-rays. please keep magnesium above 2, monitor QTC if giving zyprexa. Medications at Discharge Discharge Medications: Stop taking the following medications: Spironolactone (Spironolactone) 25 MG TABLET ORAL DAILY Qty = 90 Furosemide (Furosemide) 20 MG TABLET ORAL Every other day Qty = 90 Carvedilol (Carvedilol) 12.5 MG TABLET ORAL TWICE DAILY Qty = 180 Clopidogrel Bisulfate (Clopidogrel) 75 MG TABLET ORAL DAILY Isosorbide Mononitrate (Isosorbide Mononitrate ER) 30 MG TAB.ER.24H ORAL DAILY Days = 90 Continue taking these medications: Cyanocobalamin (Vitamin B-12) 1,000 MCG TABLET 1 Tablet ORAL DAILY Comments: NOT GIVEN IN HOSPITAL Atorvastatin Calcium (Atorvastatin Calcium) 40 MG TABLET 1 Tablet ORAL DAILY Qty = 90 Comments: Last Taken: 06/21/15 Time: 1800PM Cholecalciferol (Vitamin D3) 1,000 UNIT TABLET 1 Tablet ORAL DAILY Comments: NOT GIVEN IN HOSPITAL Start taking the following new medications: Enoxaparin Sodium (Lovenox) 30 MG/0.3 ML SYRINGE 30 Milligram Inject into fatty tissue DAILY Days = 20 No Refills Comments: Last Taken: 1/11/16 Time: 9AM Carvedilol (Coreg) 3.125 MG TABLET 6.25 Milligram ORAL TWICE DAILY Qty = 30 No Refills Comments: Last Taken: 06/22/16 Time: 9AM Furosemide (Furosemide) 20 MG TABLET 1 Tablet ORAL MONDAY, MONDAY AND MONDAY Qty = 30 No Refills Comments: Last Taken: 06/22/16 Time: 9AM Olanzapine (Olanzapine) 2.5 MG TABLET 1 Tablet ORAL EVERY 8 HOURS NEEDED as needed for AGITATION Qty = 30 No Refills Comments: NOT GIVEN Spironolactone (Aldactone) 25 MG TABLET 1 Tablet ORAL DAILY Qty = 30 No Refills Comments: Last Taken: 06/22/16 Time: 9AM Tamsulosin HCl (Flomax) 0.4 MG CAP.ER.24H 1 Tablet ORAL 5 PM Qty = 30 No Refills Comments: Last Taken: 06/21/16 Time: 1800PM Copies To: NAY DILL MD Attending Review Statement Documenting Attending: NAY DILL MD
[2016-05-31 15:54] VITALS: BP 130/68
[2016-05-31 23:40] VITALS: BP 144/68
--- NOTE | 2016-06-01 07:15 | PN- Orthopedic ---
See Addendum Subjective Subjective: POD#2 S/P ORIF RIGHT HIP C/O SIGNIFICANT RIGHT HIP PAIN AND LEG TWITCHING DENIES C/P SOB, NO N+V WITH DIET COOK IN PLACE WITH CLEAR URINE NO BM HAS BEEN OOB WITH PT REQUIRING ASSIST Objective Vital Signs and I&Os Vital Signs Date Time Temp Pulse Resp B/P Pulse O2 O2 Flow FiO2 Ox Delivery Rate 05/31 2340 97.8 70 18 144/68 95 Room Air 05/31 2114 118/64 05/31 1554 97.8 64 18 130/68 94 Room Air 05/31 0915 60 126/80 05/31 0826 97.6 60 18 126/80 95 Room Air Intake & Output 06/01 0800 06/01 0000 05/31 1600 05/31 0800 05/31 0000 05/30 1600 Intake Total 525 450 700 100 Output Total 800 3773 999 4663 200 Balance -800 -725 -600 450 -500 -100 Intake, IV 225 450 700 100 Intake, Oral 300 0 0 0 Number 0 Bowel Movements Output, Other 200 Output, Urine 800 2673 849 3195 200 Patient 162 lb Weight Physical Exam: CV: RRR LUNGS; DECREASED BS IN BASE ABD: SOFT, +BS EXT: RIGHT HIP DRSG CHANGED WOUND C/D/I THIGH SOFT, NO CALFT TENDERNESS BILAT DISTAL CMS INTACT Assessment/Plan Assessment/Plan ORTHO STABLE PLAN SUGGEST TRAMADOL FOR PAIN DUE TO NOTED ALLERGIES ALSO PO MUSCLE RELAXER FOR LEG TWITCHING CONT OOB WITH PT BOWEL REGIME SHOULD BE STARTED WILL NEED REHAB PLACEMENT
--- NOTE | 2016-06-01 07:41 | PN- Housestaff ---
Subjective Follow-up For: Hip fracture status post ORIF Subjective: patient seen and examined. He was alert and oriented, tolerating regular diet well, pain adequately controlled with current pain regimen. no BM yet, hv started patient on bowel regimen. Granado removed, otherwise no complaints. Review of Systems Constitutional: Denies: chills, fever. Cardiovascular: Denies: chest pain, orthopena, palpitations. Respiratory: Denies: cough, hemoptysis, short of breath, sputum production. Gastrointestinal: Denies: abdominal pain, constipation, diarrhea, nausea, vomiting. Genitourinary: Denies: dysuria, frequency. Objective Last 24 Hrs of Vital Signs/I&O Vital Signs Date Time Temp Pulse Resp B/P Pulse O2 O2 Flow FiO2 Ox Delivery Rate 06/01 1609 98.2 67 18 108/60 93 06/01 1153 Room Air 2.0L 06/01 0843 97.7 93 18 120/60 94 Room Air 06/01 0835 120/60 05/31 2340 97.8 70 18 144/68 95 Room Air 05/31 2114 118/64 Intake & Output 06/01 1600 06/01 0800 06/01 0000 Intake Total 1600 525 Output Total 290 159 8024 Balance 1470 -800 -725 Intake, IV 225 Intake, Oral 1600 300 Output, Urine 271 583 4288 Physical Exam General Appearance: Alert, Oriented X3, Cooperative Cardiovascular: Regular Rate, Normal S1, Normal S2, systolic murmur Lungs: Clear to Auscultation, Normal Air Movement Abdomen: Normal Bowel Sounds, Soft, No Tenderness Extremities: No Clubbing, No Cyanosis, No Edema Current Medications: Current Medications Sig/Chirag Start time Last Medication Dose Route Stop Time Status Admin Acetaminophen 650 MG .STK-MED ONE 05/31 1857 DC PO 05/31 1858 Acetaminophen 650 MG Q6P PRN 05/30 1600 AC 05/31 PO 1900 Acetaminophen 1,000 MG Q6P PRN 05/30 1600 AC 06/01 IV 0032 Atorvastatin Calcium 40 MG 1700 05/30 1700 AC 05/31 PO 1724 Carvedilol 12.5 MG BID 05/30 2200 AC 06/01 PO 0835 Cyclobenzaprine HCl 5 MG BID PRN 06/01 0745 AC PO Dextrose/Sodium 1,000 ML Q13H 05/30 2345 AC 06/01 Chloride IV 0201 Furosemide 20 MG DAILY 05/31 1000 AC 06/01 PO 0835 Morphine Sulfate 2 MG Q4P PRN 05/30 2330 DC 05/30 IV 2330 Morphine Sulfate 4 MG Q4P PRN 05/30 1600 AC IV Patient Medication 1 ED ONE ONE 06/01 1415 CA Teaching ED 06/01 1416 Polyethylene Glycol 17 GM DAILY 06/01 1607 AC PO Senna/Docusate Sodium 1 TAB BID PRN 06/01 1615 AC PO Tramadol HCl 50 MG TID PRN 06/01 0745 AC PO Warfarin Sodium 2.5 MG COUMADIN 1700 ONE 06/01 1700 AC PO 06/01 1701 Warfarin Sodium 2.5 MG COUMADIN 1700 ONE 05/31 1700 DC 05/31 PO 05/31 170 1724 Last 24 Hrs of Lab/Wilner Results Last 24 Hrs of Labs/Mics: Laboratory Tests 06/01/16 0640: Anion Gap 6, Estimated GFR 48 L, BUN/Creatinine Ratio 18.6, Calcium 8.6, Phosphorus 2.9, Magnesium 2.0, PT 13.5 H, INR 1.29 H, CBC w Diff NO MAN DIFF REQ, RBC 3.04 L, MCV 99.7 H, MCH 33.7 H, RDW 14.4, MPV 8.4, Gran % 66.8, Lymphocytes % 18.5 L, Monocytes % 10.8 H, Eosinophils % 3.5, Basophils % 0.4, Absolute Granulocytes 4.0, Absolute Lymphocytes 1.1 L, Absolute Monocytes 0.6, Absolute Eosinophils 0.2, Absolute Basophils 0, PUBS MCHC 33.8 Assessment/Plan Assessment: This is a 85-year-old male with past medical history of CAD status post [place], TIA, hypertension, congestive heart failure, hyperlipidemia, AAA status post surgery and stent placement, questionable lung nodule, presents with chief complaint of mechanical fall. Vitals creatinine 1.4, hemoglobin 11.9, platelets 152, white count 7.4 EKG does not show any acute findings. We'll admit the patient to general med floor and monitor for the following: Hip fracture status post ORIF: MRI hip showed acute fracture of the right greater trochanter with partial intertrochanteric extension anticomplement of the fracture extending longitudinally through The collarbone into the proximal femoral diaphysis. patient tolerating regular diet well Plavix on hold, patient started on Coumadin we'll continue on Coumadin for 6 weeks and then will restart Plavix as per ortho, will continue Lasix 20 mg daily , Lipitor 40 mg daily, carvedilol 12.5 mg twice a day Pain management and morphine IV 4 mg every 4 hour Spironolactone and isosorbide on hold Will follow-up a.m. labs along with monitoring vitals closely Problem List: 1. Closed right hip fracture Pain Ratin Pain Location: Right hip Pain Goal: Remain pain free Pain Plan: See assessment and plan Tomorrow's Labs & Rationales: INR for Coumadin dosing CBC for H&H monitoring
--- NOTE | 2016-06-01 07:58 | Patient Discharge Instructions ---
Discharge Instructions General Discharge Information You were seen/treated for: Right hip fracture You had these procedures: right hip ORIF Special Instructions: Please continue Lovenox 30 mg daily till 07/13/2016 and then resume Plavix 75mg daily. Please hold Coreg for Systolic BP<100. Olanzapine 2.5mg every 8 hours can be used for agitation as needed but please get serial EKGs to make sure QTC is within normal range and keep magnesium above 2. Surgical simi removed during hospital stay but follow-up with orthopedics to get follow up hip x-rays. Please follow-up with your primary care physician in one week of discharge Please follow-up with your margarine maker in 1-2 weeks of discharge Diet Continue normal diet: Yes Recommended Diet: Heart Healthy Activity Additional ACTIVITY Info: Weightbearing with assistance of physical therapy Acute Coronary Syndrome Inclusion Criteria At DC or during hospital stay patient has or had the following: ACS DIAGNOSIS No Discharge Core Measures Meds if any: Prescribed or Continued at Discharge Meds if any: NOT Prescribed or Continued at Discharge Congestive Heart Failure Inclusion Criteria At DC or during hospital stay patient has or had the following: CHF DIAGNOSIS No Discharge Core Measures Meds if any: Prescribed or Continued at Discharge Meds if any: NOT Prescribed or Continued at Discharge Cerebrovascular accident Inclusion Criteria At DC or during hospital stay patient has or had the following: CVA/TIA Diagnosis No Discharge Core Measures Meds if any: Prescribed or Continued at Discharge Meds if any: NOT Prescribed or Continued at Discharge Venous thromboembolism Inclusion Criteria VTE Diagnosis No VTE Type NONE VTE Confirmed by (Test) NONE Discharge Core Measures - Per Current guidelines, there needs to be overlap - treatment for the first 5 days of Warfarin therapy. - If discharged on Warfarin prior to 5 days of - overlap therapy, the patient will need to be - assessed for post discharge needs including - *Post discharge parental anticoagulation - *Warfarin and/or parental anticoagulation education - *Follow up date to check INR post discharge At least 5 days overlap therapy as Inpatient No Meds if any: Prescribed or Continued at Discharge Note: Overlap Therapy is Warfarin and Anticoagulant Meds if any: NOT Prescribed or Continued at Discharge
[2016-06-01 08:02] LABS: ABSOLUTE BASOPHIL COUNT 0 /CUMM (0.0-0.2); ABSOLUTE EOSINOPHIL COUNT 0.2 /CUMM (0.0-0.7); ABSOLUTE LYMPH COUNT 1.1 /CUMM (1.2-3.4); ABSOLUTE MONOCYTE COUNT 0.6 /CUMM (0.10-0.60); BASOPHIL % 0.4 % (0.0-2.0); EOSINOPHIL % 3.5 % (0-5); GRANULOCYTE % 66.8 % (42.2-75.2); HEMATOCRIT 30.3 % (42-52); MEAN CORPUSCULAR HGB 33.7 PG (27.0-31.0); MEAN CORPUSCULAR HGB CONC 33.8 G/DL (33.0-37.0); MEAN CORPUSCULAR VOLUME 99.7 FL (80.0-94.0); MEAN PLATELET VOLUME 8.4 FL (7.4-10.4); PLATELET COUNT 135 /CUMM (130-400); RBC DISTRIBUTION WIDTH 14.4 % (11.5-14.5); RED BLOOD CELL CT 3.04 /CUMM (4.70-6.10)
[2016-06-01 08:23] LABS: PT 13.5 SEC (9.4-12.5)
[2016-06-01 08:43] VITALS: BP 120/60
[2016-06-01 08:51] VITALS: BP 115/70
--- NOTE | 2016-06-01 11:42 | PN- Pulmonary ---
Subjective HPI/Critical Care Issues: Doing better Pain is better Stable Holden has been removed Still on ivf Objective Current Medications: Current Medications Sig/Chirag Start time Last Medication Dose Route Stop Time Status Admin Acetaminophen 650 MG .STK-MED ONE 05/31 1857 DC PO 05/31 1858 Acetaminophen 650 MG Q6P PRN 05/30 1600 AC 05/31 PO 1900 Acetaminophen 1,000 MG Q6P PRN 05/30 1600 AC 06/01 IV 0032 Atorvastatin Calcium 40 MG 1700 05/30 1700 AC 05/31 PO 1724 Carvedilol 12.5 MG BID 05/30 2200 AC 06/01 PO 0835 Cefazolin Sodium 2 GM Q8H 05/31 0500 DC 05/31 N/A 1 UNIT IV 05/31 1329 1412 Cyclobenzaprine HCl 5 MG BID PRN 06/01 0745 AC PO Dextrose/Sodium 1,000 ML Q13H 05/30 2345 AC 06/01 Chloride IV 0201 Furosemide 20 MG DAILY 05/31 1000 AC 06/01 PO 0835 Heparin Sodium 5,000 UNIT Q8 05/30 1550 DC 05/31 (Porcine) SC 05/31 1400 1411 Morphine Sulfate 2 MG Q4P PRN 05/30 2330 DC 05/30 IV 2330 Morphine Sulfate 4 MG Q4P PRN 05/30 1600 AC IV Tramadol HCl 50 MG TID PRN 06/01 0745 AC PO Warfarin Sodium 2.5 MG COUMADIN 1700 ONE 05/31 1700 DC 05/31 PO 05/31 1701 1724 Vital Signs & I&O Last 24 Hrs of Vitals and I&O: Vital Signs Date Time Temp Pulse Resp B/P Pulse O2 O2 Flow FiO2 Ox Delivery Rate 06/01 0843 97.7 93 18 120/60 94 Room Air 06/01 0835 120/60 05/31 2340 97.8 70 18 144/68 95 Room Air 05/31 2114 118/64 05/31 1554 97.8 64 18 130/68 94 Room Air Intake & Output 06/01 1600 06/01 0800 06/01 0000 Intake Total 525 Output Total 800 1250 Balance -800 -725 Intake, IV 225 Intake, Oral 300 Output, Urine 800 1250 Laboratory Tests 06/01 05/31 0640 0700 Chemistry Sodium (137 - 145 mmol/L) 136 L 135 L Potassium (3.5 - 5.1 mmol/L) 3.9 4.4 Chloride (98 - 107 mmol/L) 100 98 Carbon Dioxide (22 - 30 mmol/L) 29 29 Anion Gap (5 - 16) 6 8 BUN (9 - 20 mg/dL) 26 H 30 H Creatinine (0.7 - 1.2 mg/dL) 1.4 H 1.3 H Estimated GFR (>60 ml/min) 48 L 52 L BUN/Creatinine Ratio (7 - 25 %) 18.6 23.1 Calcium (8.4 - 10.2 mg/dL) 8.6 Phosphorus (2.5 - 4.5 mg/dL) 2.9 Magnesium (1.6 - 2.3 mg/dL) 2.0 Coagulation PT (9.4 - 12.5 SEC) 13.5 H INR (0.90 - 1.17) 1.29 H Hematology CBC w Diff NO MAN DIFF REQ NO MAN DIFF REQ WBC (4.8 - 10.8 /CUMM) 6.0 7.3 RBC (4.70 - 6.10 /CUMM) 3.04 L 3.35 L Hgb (14.0 - 18.0 G/DL) 10.2 L 11.2 L Hct (42 - 52 %) 30.3 L 33.0 L MCV (80.0 - 94.0 FL) 99.7 H 98.7 H MCH (27.0 - 31.0 PG) 33.7 H 33.4 H RDW (11.5 - 14.5 %) 14.4 14.5 Plt Count (130 - 400 /CUMM) 135 147 MPV (7.4 - 10.4 FL) 8.4 8.1 Gran % (42.2 - 75.2 %) 66.8 81.5 H Lymphocytes % (20.5 - 51.1 %) 18.5 L 10.1 L Monocytes % (1.7 - 9.3 %) 10.8 H 6.8 Eosinophils % (0 - 5 %) 3.5 1.5 Basophils % (0.0 - 2.0 %) 0.4 0.1 Absolute Granulocytes (1.4 - 6.5 /CUMM) 4.0 5.9 Absolute Lymphocytes (1.2 - 3.4 /CUMM) 1.1 L 0.7 L Absolute Monocytes (0.10 - 0.60 /CUMM) 0.6 0.5 Absolute Eosinophils (0.0 - 0.7 /CUMM) 0.2 0.1 Absolute Basophils (0.0 - 0.2 /CUMM) 0 0 PUBS MCHC (33.0 - 37.0 G/DL) 33.8 33.9 05/30 1359 Chemistry Sodium (137 - 145 mmol/L) 137 Potassium (3.5 - 5.1 mmol/L) 4.4 Chloride (98 - 107 mmol/L) 101 Carbon Dioxide (22 - 30 mmol/L) 27 Anion Gap (5 - 16) 9 BUN (9 - 20 mg/dL) 34 H Creatinine (0.7 - 1.2 mg/dL) 1.4 H Estimated GFR (>60 ml/min) 48 L BUN/Creatinine Ratio (7 - 25 %) 24.3 Glucose (65 - 99 mg/dL) 90 Calcium (8.4 - 10.2 mg/dL) 9.3 Total Bilirubin (0.2 - 1.3 mg/dL) 1.2 AST (17 - 59 U/L) 16 L ALT (21 - 72 U/L) 33 Alkaline Phosphatase (< 127 U/L) 80 Total Protein (6.3 - 8.2 g/dL) 6.1 L Albumin (3.5 - 5.0 g/dL) 3.4 L Globulin (1.9 - 4.2 gm/dL) 2.7 Albumin/Globulin Ratio (1.1 - 2.2 %) 1.3 Coagulation PT (9.4 - 12.5 SEC) 11.4 INR (0.90 - 1.17) 1.09 APTT (25 - 37 SEC) 26 Hematology CBC w Diff NO MAN DIFF REQ WBC (4.8 - 10.8 /CUMM) 7.4 RBC (4.70 - 6.10 /CUMM) 3.57 L Hgb (14.0 - 18.0 G/DL) 11.9 L Hct (42 - 52 %) 35.4 L MCV (80.0 - 94.0 FL) 99.1 H MCH (27.0 - 31.0 PG) 33.4 H RDW (11.5 - 14.5 %) 14.6 H Plt Count (130 - 400 /CUMM) 152 MPV (7.4 - 10.4 FL) 7.8 Gran % (42.2 - 75.2 %) 76.5 H Lymphocytes % (20.5 - 51.1 %) 15.0 L Monocytes % (1.7 - 9.3 %) 6.4 Eosinophils % (0 - 5 %) 2.1 Basophils % (0.0 - 2.0 %) 0 L Absolute Granulocytes (1.4 - 6.5 /CUMM) 5.6 Absolute Lymphocytes (1.2 - 3.4 /CUMM) 1.1 L Absolute Monocytes (0.10 - 0.60 /CUMM) 0.5 Absolute Eosinophils (0.0 - 0.7 /CUMM) 0.2 Absolute Basophils (0.0 - 0.2 /CUMM) 0 PUBS MCHC (33.0 - 37.0 G/DL) 33.7 Microbiology Date/Time Procedure - Status Source Growth 05/30 2209 Urine Culture - CAN URINE OR Cancelled: Cancelled via OE: REDO 05/30 2115 Urine Culture - COMP URINE OR Impression/Plan Impression/Plan Impression/Plan: General: Alert and oriented, no acute distress Cardiac: RRR, s1s2 Pulmonary: Bilateral lung sounds clear to auscutation Abdomen: Non-tender, non-distended Extremities: Moves all extremities, distal sensate intact. SKin warm and well perfused. Calves soft and non-tender, dp pulses palpable bilaterally. Surgical site: Right thigh: Dressing dry and intact, swelling noted, thigh compartment soft IMPRESSION This is a gentleman with chronic kidney disease, previous ischemic heart disease with previous [place], hyperlipidemia, peripheral vascular disease, previous AAA repair, who is on clopidogrel for antiplatelet therapy for peripheral vascular disease, hypertension hyperlipidemia now here with a hip fracture s/p surg on His issues include Pain in the surg site improving IHD stable Hypertension and hyperlipidemia stable Previous urinary stricture s/p holden now passing urine Ischemic heart disease hypertension stable Previous aaa CT findings of the chest reviewed and pt would need ct chest in few months Sig djd cspine Recommendation DC ivf Ask ortho about warfarin and pt needs prophylaxis as he had hip surg COnt warfarin prob Ask ortho when plavix can be resumed Continue his anti-hypertensive and the cholesterol lowering drugs Start low dose spironolactone and do not resume isosorbide upon dc Follow hemoglobin and hematocrit We will follow closely patient is DNR/DNI
--- NOTE | 2016-06-01 13:03 | Operative Report ---
Operative/Inv Procedure Report Surgery Date: 05/30/16 Name of Procedure: ORIF right intertrochanteric hip fracture Pre-Operative Diagnosis: Right intertrochanteric hip fracture Post-Operative Diagnosis: Same Estimated Blood Loss: 50ml to 100ml Surgeon/Clinical Resource Manager: Claudio Gonzalez MD Anesthesia: laryngeal mask airway Implants: [place] hip compression screw and sideplate Drains: None Specimens: None Complications: None Condition: Stable Operative Indication: Patient is an 86-year-old man who has a history of a fall directly on his right side. He was found to have a greater trochanter fracture initially upon evaluation. We were called for consultation. My evaluation was can small consistent with a probable intertrochanteric extension. Based on this, I recommended further evaluation after discussing with radiology. Radiology was unclear whether there was an intertrochanteric component to the fracture. Due to this uncertainty, MRI evaluation was recommended. This study revealed findings consistent with intersubtrochanteric extension of the fracture. Due to the intertrochanteric extension, I recommended surgical fixation to maximize mobilization and to prevent other medical complications of his hip injury. Risks, benefits and expectations of surgical management were discussed with patient and family. Risks, benefits and expectations including but not limited to persistent hip pain, need for subsequent surgery, nonunion, malunion, need for subsequent surgery, infection, DVT and anesthesia risks were discussed. The other issue was patient was on Plavix and there would be possibility of increased bleeding secondary to being on this medication. However, after discussing this and realizing that in order to counteract the Plavix it would delay the surgery for a period of time that we would proceed with surgical management and maintaining hemostasis more vigilantly. Patient was cleared medically for surgical procedure Operative/Procedure Note Note: Patient was brought to the operating room and transferred to the operating room table. Once under appropriate anesthesia the patient was placed on the fracture table with all bony prominences well padded. IV antibiotic's were given prophylactically. The right lower extremity was prepped and draped in standard fashion. A standard lateral incision was made for anticipated placement of the hip compression screw and sideplate. Incision was taken down sharply to the underlying fascia. The fascia was incised in line with the skin incision the vastus lateralis was reflected anteriorly and dissected off of the lateral aspect of the proximal femur. A guidewire for the [place] hip compression screw and sideplate system was used was drilled up across the femoral neck the intertrochanteric fracture and into the femoral head. This was visualized on AP and lateral planes. I was satisfied with position of the guidewire. I then measured it ream the appropriate length and applied a 95 mm compression screw across the fracture site. I then applied a 3-hole 135 side plate in standard fashion. 3 bicortical screws were applied and x-rays were taken. I was satisfied with the fluoroscopic images in both AP and lateral planes. Maintained alignment of the fracture and placement of the hardware and appropriate length of hardware. After copious irrigation the vas laterals was closed with a running 0 Vicryl suture fascia was closed with interrupted #1 Vicryl suture and subcutaneous layer was closed in 2 layers with 2-0 Vicryl. Skin was closed with simi. Appropriate dressings were applied and patient was awakened and taken the recovery room in good condition. No intraoperative complications. Blood loss was approximately 100 mL Discharge Disposition: PACU
[2016-06-01 16:09] VITALS: BP 108/60
[2016-06-01 17:35] VITALS: BP 118/70
--- NOTE | 2016-06-01 20:26 | Event Note ---
Event Note Event Note: Notified about the nursing staff about the patient's daughter's concern about his confusion and double vision. Patient reported that the blood vision was chronic and it resolved with wearing his eye glasses. [place] requested a call back about any imaging results of the head. Daughter was contacted at the number provided by the nursing staff without success. Will have the day team try again tomorrow.
[2016-06-02 00:07] VITALS: BP 122/56
--- NOTE | 2016-06-02 07:43 | PN- Orthopedic ---
Subjective Subjective: The patient was seen this morning postoperatively day #3. He has no other complaints aside from some moderate incisional soreness. Objective Vital Signs and I&Os Vital Signs Date Time Temp Pulse Resp B/P Pulse O2 O2 Flow FiO2 Ox Delivery Rate 06/02 0007 98.2 59 19 122/56 95 Room Air 06/01 2019 64 116/58 06/01 1735 98.3 118/70 93 Room Air 06/01 1609 98.2 67 18 108/60 93 06/01 1153 Room Air 2.0L 06/01 0843 97.7 93 18 120/60 94 Room Air 06/01 0835 120/60 Intake & Output 06/02 0800 06/02 0000 06/01 1600 06/01 0800 06/01 0000 05/31 1600 Intake Total 425 1600 525 Output Total 275 052 869 2164 600 Balance 150 1470 -800 -725 -600 Intake, IV 300 225 Intake, Oral 125 1600 300 Number 0 Bowel Movements Output, Urine 275 755 393 2082 600 Physical Exam: Gen.: Alert and obvious distress Skin: Warm and dry Extremities: Bilateral lower extremities are warm without calf tenderness or significant edema. Gross motor and sensory are intact. Right hip surgical dressing is clean, dry, and intact without signs of infection. Assessment/Plan Assessment/Plan Assessment: 86-year-old male status post right hip ORIF operative day #3. The patient is progressing as expected and his pain is under adequate control. Plan: Out of bed ambulate with physical therapy patient is weightbearing as tolerated Follow-up morning laboratory studies and we dose Coumadin to reach a goal INR between 2 and 3 Daily dry dressing change GI and DVT prophylaxis Continue current pain regiment Remove surgical clips on postoperative day #15 The patient to follow-up in the office in approximately 3 weeks Will sign off but please reconsult as needed
[2016-06-02 08:31] LABS: PT 21.2 SEC (9.4-12.5)
[2016-06-02 08:33] LABS: ABSOLUTE BASOPHIL COUNT 0 /CUMM (0.0-0.2); ABSOLUTE EOSINOPHIL COUNT 0.2 /CUMM (0.0-0.7); ABSOLUTE GRANULOCYTE CT 4.7 /CUMM (1.4-6.5); ABSOLUTE LYMPH COUNT 1.1 /CUMM (1.2-3.4); ABSOLUTE MONOCYTE COUNT 0.7 /CUMM (0.10-0.60); BASOPHIL % 0.2 % (0.0-2.0); EOSINOPHIL % 3.6 % (0-5); HEMATOCRIT 32.1 % (42-52); MEAN CORPUSCULAR HGB 33.7 PG (27.0-31.0); MEAN CORPUSCULAR HGB CONC 33.9 G/DL (33.0-37.0); MEAN CORPUSCULAR VOLUME 99.5 FL (80.0-94.0); MEAN PLATELET VOLUME 8.2 FL (7.4-10.4); RBC DISTRIBUTION WIDTH 14.1 % (11.5-14.5); RED BLOOD CELL CT 3.22 /CUMM (4.70-6.10); WHITE BLOOD CELL COUNT 6.8 /CUMM (4.8-10.8)
[2016-06-02 08:56] LABS: GRANULOCYTE % 69.2 % (42.2-75.2); PLATELET COUNT 146 /CUMM (130-400)
[2016-06-02 09:12] VITALS: BP 144/74
[2016-06-02] MEDS ORDERED: COUMADIN2.5 M1 PO (10:08)
--- NOTE | 2016-06-02 11:01 | PN- Housestaff ---
Subjective Follow-up For: Hip fracture status post ORIF Subjective: patient seen and examined. He was alert and oriented, tolerating regular diet well, pain adequately controlled with current pain regimen. BM this Am. Patient has been retaining urine overnight, for now have placed the patient on strict Protocol. Vitals within normal limits. Review of Systems Constitutional: Reports: see HPI. Objective Last 24 Hrs of Vital Signs/I&O Vital Signs Date Time Temp Pulse Resp B/P Pulse O2 O2 Flow FiO2 Ox Delivery Rate 06/03 0605 98.4 62 20 126/86 94 Room Air 06/03 0013 98.4 60 20 124/68 94 Room Air 06/02 1641 98.5 61 20 126/70 95 06/02 0931 60 159/68 06/02 0912 97.8 63 20 144/74 97 Room Air Intake & Output 06/03 1600 06/03 0800 06/03 0000 Intake Total 0 Output Total 450 600 Balance -450 -600 Intake, Oral 0 Output, Urine 450 600 Physical Exam General Appearance: Alert, Oriented X3, Cooperative, No Acute Distress Cardiovascular: Regular Rate, Normal S1, Normal S2, systolic murmur Lungs: Clear to Auscultation, Normal Air Movement Abdomen: Normal Bowel Sounds, Soft, No Tenderness Current Medications: Current Medications Sig/Chirag Start time Last Medication Dose Route Stop Time Status Admin Acetaminophen 650 MG Q6P PRN 05/30 1600 AC 06/01 PO 2019 Acetaminophen 1,000 MG Q6P PRN 05/30 1600 AC 06/01 IV 0032 Atorvastatin Calcium 40 MG 1700 05/30 1700 AC 06/02 PO 1738 Carvedilol 12.5 MG BID 05/30 2200 AC 06/02 PO 0931 Cyclobenzaprine HCl 5 MG BID PRN 06/01 0745 DC PO Furosemide 20 MG DAILY 05/31 1000 AC 06/02 PO 0931 Haloperidol 0.4 MG ONCE ONE 06/03 0500 DC 06/03 IM 06/03 0501 0520 Lorazepam 0.5 MG ONCE PRN 06/02 2345 AC 06/03 IV 0000 Morphine Sulfate 2 MG Q6P PRN 06/02 1316 AC IV Morphine Sulfate 2 MG Q6 06/02 1200 DC IV Polyethylene Glycol 17 GM DAILY 06/01 1607 AC 06/02 PO 0931 Ramelteon 8 MG AT BEDTIME 06/03 2200 AC PO Senna/Docusate Sodium 1 TAB BID PRN 06/01 1615 AC 06/01 PO 2019 Tramadol HCl 50 MG Q6 06/02 1200 CAN PO Warfarin Sodium 2.5 MG COUMADIN 1700 ONE 06/02 1700 DC 06/02 PO 06/02 1701 1738 Last 24 Hrs of Lab/Wilner Results Last 24 Hrs of Labs/Mics: Laboratory Tests 06/03/16 0700: PT Pending, INR Pending, CBC w Diff NO MAN DIFF REQ, RBC 3.17 L, MCV 100.0 H, MCH 33.6 H, RDW 14.4, MPV 8.7, Gran % 75.1, Lymphocytes % 11.8 L, Monocytes % 9.2, Eosinophils % 3.9, Basophils % 0 L, Absolute Granulocytes 5.8, Absolute Lymphocytes 0.9 L, Absolute Monocytes 0.7 H, Absolute Eosinophils 0.3, Absolute Basophils 0, PUBS MCHC 33.5 Assessment/Plan Assessment: This is a 85-year-old male with past medical history of CAD status post LA, TIA, hypertension, congestive heart failure, hyperlipidemia, AAA status post surgery and stent placement, questionable lung nodule, presents with chief complaint of mechanical fall. Vitals creatinine 1.4, hemoglobin 11.9, platelets 152, white count 7.4 EKG does not show any acute findings. We'll admit the patient to general med floor and monitor for the following: Hip fracture status post ORIF: MRI hip showed acute fracture of the right greater trochanter with partial intertrochanteric extension anticomplement of the fracture extending longitudinally through The collarbone into the proximal femoral diaphysis. patient tolerating regular diet well Plavix on hold, patient started on Coumadin we'll continue on Coumadin for 6 weeks and then will restart Plavix as per ortho, will continue Lasix 20 mg daily , Lipitor 40 mg daily, carvedilol 12.5 mg twice a day Pain management with morphine IV 4 mg every 6 hour and Tylenol. Spironolactone and isosorbide on hold Will follow-up a.m. labs along with monitoring vitals closely Regular diet DVT prophylaxis with Coumadin Patient is DNR/DNI Problem List: 1. Fracture of greater trochanter of right femur Pain Ratin Pain Location: Right hip Pain Goal: Remain pain free Pain Plan: See assessment and plan Tomorrow's Labs & Rationales: INR for Coumadin dosing CBC for H&H monitoring
--- NOTE | 2016-06-02 11:21 | PN- Pulmonary ---
Subjective HPI/Critical Care Issues: Patient did have mild delirium last night. This morning he was alert awake and oriented 3. No fever no chills noted. Patient did have difficulty urinating. He does have mild incisional soreness. Objective Current Medications: Current Medications Sig/Chirag Start time Last Medication Dose Route Stop Time Status Admin Acetaminophen 650 MG .STK-MED ONE 06/01 2013 DC PO 06/01 2014 Acetaminophen 650 MG Q6P PRN 05/30 1600 AC 06/01 PO 2019 Acetaminophen 1,000 MG Q6P PRN 05/30 1600 AC 06/01 IV 0032 Atorvastatin Calcium 40 MG 1700 05/30 1700 AC 06/01 PO 1754 Bisacodyl 10 MG ONCE ONE 06/02 0815 DC 06/02 TN 06/02 0816 0932 Carvedilol 12.5 MG BID 05/30 2200 AC 06/02 PO 0931 Cyclobenzaprine HCl 5 MG BID PRN 06/01 0745 DC PO Dextrose/Sodium 1,000 ML Q13H 05/30 2345 DC 06/02 Chloride IV 0500 Furosemide 20 MG DAILY 05/31 1000 AC 06/02 PO 0931 Morphine Sulfate 2 MG Q6 06/02 1200 AC IV Morphine Sulfate 4 MG Q4P PRN 05/30 1600 DC IV Patient Medication 1 ED ONE ONE 06/01 1415 DC 06/01 Teaching ED 06/01 1416 2020 Polyethylene Glycol 17 GM DAILY 06/01 1607 AC 06/02 PO 0931 Senna/Docusate Sodium 1 TAB BID PRN 06/01 1615 AC 06/01 PO 2019 Tramadol HCl 50 MG Q6 06/02 1200 CAN PO Tramadol HCl 50 MG TID PRN 06/01 0745 DC PO Warfarin Sodium 2.5 MG COUMADIN 1700 ONE 06/02 1700 AC PO 06/02 1701 Warfarin Sodium 2.5 MG COUMADIN 1700 ONE 06/01 1700 DC 06/01 PO 06/01 1701 1754 Vital Signs & I&O Last 24 Hrs of Vitals and I&O: Vital Signs Date Time Temp Pulse Resp B/P Pulse O2 O2 Flow FiO2 Ox Delivery Rate 06/02 0931 60 159/68 06/02 912 97.8 63 20 144/74 97 Room Air 06/02 0007 98.2 59 19 122/56 95 Room Air 06/01 2019 64 116/58 06/01 1735 98.3 118/70 93 Room Air 06/01 1609 98.2 67 18 108/60 93 06/01 1153 Room Air 2.0L Intake & Output 06/02 1600 06/02 0800 06/02 0000 Intake Total 700 425 Output Total 830 275 Balance -130 150 Intake, IV 600 300 Intake, Oral 100 125 Number 0 0 Bowel Movements Output, Urine 830 275 Impression/Plan Impression/Plan Impression/Plan: General: Alert and oriented, no acute distress Cardiac: RRR, s1s2 Pulmonary: Bilateral lung sounds clear to auscutation Abdomen: Non-tender, non-distended Extremities: Moves all extremities, distal sensate intact. SKin warm and well perfused. Calves soft and non-tender, dp pulses palpable bilaterally. Surgical site: Right thigh: Dressing dry and intact, swelling noted, thigh compartment soft IMPRESSION This is a gentleman with chronic kidney disease, previous ischemic heart disease with previous [place], hyperlipidemia, peripheral vascular disease, previous AAA repair, who is on clopidogrel for antiplatelet therapy for peripheral vascular disease, hypertension hyperlipidemia now here with a hip fracture s/p surg on His issues include Pain in the surg site improving, now with mild delirium last night which seems to have resolved related to medications versus admission versus age and vascular disease Postop constipation with needs to be treated Mild cognitive impairment which is being worked up before with CT scan and 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 If patient does require pain medication we will put him on morphine 2 mg every 6 hours when necessary intravenously as it has a shorter half-life however his pain medication may need to be completely stopped. We will also treat him with Tylenol if needed Reorientation therapy COnt warfarin check INR tomorrow keep his dose at 2 mg plavix can be resumed only when is completely stable Continue his anti-hypertensive and the cholesterol lowering drugs Start low dose spironolactone and do not resume isosorbide upon dc Aggressive bowel regimen. If patient does not move his bowel redo a suppository. Check his magnesium level and replace as needed Follow hemoglobin and hematocrit We will follow closely patient is DNR/DNI
[2016-06-02 16:41] VITALS: BP 126/70
[2016-06-03 00:13] VITALS: BP 124/68
[2016-06-03 06:05] VITALS: BP 126/86
[2016-06-03 08:08] LABS: ABSOLUTE BASOPHIL COUNT 0 /CUMM (0.0-0.2); ABSOLUTE EOSINOPHIL COUNT 0.3 /CUMM (0.0-0.7); ABSOLUTE GRANULOCYTE CT 5.8 /CUMM (1.4-6.5); ABSOLUTE LYMPH COUNT 0.9 /CUMM (1.2-3.4); ABSOLUTE MONOCYTE COUNT 0.7 /CUMM (0.10-0.60); BASOPHIL % 0 % (0.0-2.0); EOSINOPHIL % 3.9 % (0-5); GRANULOCYTE % 75.1 % (42.2-75.2); HEMATOCRIT 31.7 % (42-52); MEAN CORPUSCULAR HGB 33.6 PG (27.0-31.0); MEAN CORPUSCULAR HGB CONC 33.5 G/DL (33.0-37.0); MEAN PLATELET VOLUME 8.7 FL (7.4-10.4); PLATELET COUNT 150 /CUMM (130-400); RBC DISTRIBUTION WIDTH 14.4 % (11.5-14.5); RED BLOOD CELL CT 3.17 /CUMM (4.70-6.10); WHITE BLOOD CELL COUNT 7.7 /CUMM (4.8-10.8)
--- NOTE | 2016-06-03 08:22 | PN- Housestaff ---
Subjective Follow-up For: hip fracture s/p ORIF Subjective: Patient seen and examined this AM. He was confused and delirious. Overnight he was confused and combative and was given Ativan followed by Angel. Has a sitter. Son in law was at bedside, he could not recognize him, vitals within normal range, continues to retain urine, this a.m. 450 mL of urine via straight cath, he remains on straightcath protocol. Review of Systems Constitutional: Reports: see HPI. Objective Last 24 Hrs of Vital Signs/I&O Vital Signs Date Time Temp Pulse Resp B/P Pulse O2 O2 Flow FiO2 Ox Delivery Rate 06/03 1103 Room Air 2.0L 06/03 1055 Room Air 2.0L 06/03 0927 120/62 06/03 0605 98.4 62 20 126/86 94 Room Air 06/03 0013 98.4 60 20 124/68 94 Room Air 06/02 1641 98.5 61 20 126/70 95 Intake & Output 06/03 1600 06/03 0800 06/03 0000 Intake Total 0 Output Total 450 450 600 Balance -450 -450 -600 Intake, Oral 0 Output, Urine 450 450 600 Physical Exam General Appearance: delirious and confused Cardiovascular: Regular Rate, Normal S1, Normal S2, No Murmurs Lungs: Clear to Auscultation, Normal Air Movement Abdomen: Normal Bowel Sounds, Soft, No Tenderness Extremities: No Clubbing, No Cyanosis, No Edema Current Medications: Current Medications Sig/Chirag Start time Last Medication Dose Route Stop Time Status Admin Acetaminophen 650 MG Q6P PRN 05/30 1600 AC 06/01 PO 2019 Acetaminophen 1,000 MG Q6P PRN 05/30 1600 AC 06/01 IV 0032 Atorvastatin Calcium 40 MG 1700 05/30 1700 AC 06/02 PO 1738 Carvedilol 12.5 MG BID 05/30 2200 AC 06/03 PO 0927 Furosemide 20 MG DAILY 05/31 1000 AC 06/03 PO 0927 Haloperidol 0.5 MG ONCE ONE 06/03 1130 DC 06/03 IM 06/03 1131 1206 Haloperidol 0.4 MG ONCE ONE 06/03 1115 CAN IM 06/03 1116 Haloperidol 0.4 MG ONCE ONE 06/03 0500 DC 06/03 IM 06/03 0501 0520 Lorazepam 0.5 MG ONCE PRN 06/02 2345 AC 06/03 IV 0000 Morphine Sulfate 2 MG Q6P PRN 06/02 1316 DC IV Polyethylene Glycol 17 GM DAILY 06/01 1607 AC 06/03 PO 0921 Ramelteon 8 MG AT BEDTIME 06/03 2200 AC PO Senna/Docusate Sodium 1 TAB BID PRN 06/01 1615 AC 06/01 PO 2019 Warfarin Sodium 2.5 MG COUMADIN 1700 ONE 06/02 1700 DC 06/02 PO 06/02 1701 1738 Last 24 Hrs of Lab/Wilner Results Last 24 Hrs of Labs/Mics: Laboratory Tests 06/03/16 0700: PT 37.0 H, INR 3.57 H, CBC w Diff NO MAN DIFF REQ, RBC 3.17 L, MCV 100.0 H, MCH 33.6 H, RDW 14.4, MPV 8.7, Gran % 75.1, Lymphocytes % 11.8 L, Monocytes % 9.2, Eosinophils % 3.9, Basophils % 0 L, Absolute Granulocytes 5.8, Absolute Lymphocytes 0.9 L, Absolute Monocytes 0.7 H, Absolute Eosinophils 0.3, Absolute Basophils 0, PUBS MCHC 33.5 Assessment/Plan Assessment: This is a 85-year-old male with past medical history of CAD status post [place], TIA, hypertension, congestive heart failure, hyperlipidemia, AAA status post surgery and stent placement, questionable lung nodule, presents with chief complaint of mechanical fall. Vitals creatinine 1.4, hemoglobin 11.9, platelets 152, white count 7.4 EKG does not show any acute findings. We'll admit the patient to general med floor and monitor for the following: Overnight events : Patient was combative and delirious overnight received one dose of IV Ativan and 0.4 mg of IM Haldol. Delirium: Patient was combative and delirious overnight, given one dose of haldol 0.4mg, due to prolonged (QTc will avoid any repeat doses or any other Qtc prolonging meds). 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 Hip fracture status post ORIF POD#4: MRI hip showed acute fracture of the right greater trochanter with partial intertrochanteric extension anticomplement of the fracture extending longitudinally through The collarbone into the proximal femoral diaphysis. He is status post RF, postoperative day 4. patient tolerating regular diet well Plavix on hold, patient started on Coumadin we'll continue on Coumadin for 6 weeks and then will restart Plavix as per ortho, History of [place]/HTN/HLD: Will continue Lasix 20 mg daily, Lipitor 40 mg daily, carvedilol 12.5 mg twice a day Spironolactone(TO BE CONTINUED UPON DISCHARGE) and isosorbide on hold Pain management with Tylenol. Regular diet DVT prophylaxis with Coumadin Patient is DNR/DNI Problem List: 1. Fracture of greater trochanter of right femur Pain Ratin Pain Location: Right hip Pain Goal: Remain pain free Pain Plan: Morphine and Tylenol Tomorrow's Labs & Rationales: CBC for H&H monitored INR for Coumadin dosing
--- NOTE | 2016-06-03 11:47 | PN- Pulmonary ---
Subjective HPI/Critical Care Issues: Pt has had worsening delirium Afebrile vss Still has urinary retention Offers no other complaints Objective Current Medications: Current Medications Sig/Chirag Start time Last Medication Dose Route Stop Time Status Admin Acetaminophen 650 MG Q6P PRN 05/30 1600 AC 06/01 PO 2019 Acetaminophen 1,000 MG Q6P PRN 05/30 1600 AC 06/01 IV 0032 Atorvastatin Calcium 40 MG 1700 05/30 1700 AC 06/02 PO 1738 Carvedilol 12.5 MG BID 05/30 2200 AC 06/03 PO 0927 Furosemide 20 MG DAILY 05/31 1000 AC 06/03 PO 0927 Haloperidol 0.5 MG ONCE ONE 06/03 1130 DC IM 06/03 1131 Haloperidol 0.4 MG ONCE ONE 06/03 1115 CAN IM 06/03 1116 Haloperidol 0.4 MG ONCE ONE 06/03 0500 DC 06/03 IM 06/03 0501 0520 Lorazepam 0.5 MG ONCE PRN 06/02 2345 AC 06/03 IV 0000 Morphine Sulfate 2 MG Q6P PRN 06/02 1316 DC IV Morphine Sulfate 2 MG Q6 06/02 1200 DC IV Polyethylene Glycol 17 GM DAILY 06/01 1607 AC 06/03 PO 0921 Ramelteon 8 MG AT BEDTIME 06/03 2200 AC PO Senna/Docusate Sodium 1 TAB BID PRN 06/01 1615 AC 06/01 PO 2019 Warfarin Sodium 2.5 MG COUMADIN 1700 ONE 06/02 1700 DC 06/02 PO 06/02 1701 1738 Laboratory Tests 06/03 06/02 0700 0805 Coagulation PT (9.4 - 12.5 SEC) 37.0 H 21.2 H INR (0.90 - 1.17) 3.57 H 2.03 H Hematology CBC w Diff NO MAN DIFF REQ NO MAN DIFF REQ WBC (4.8 - 10.8 /CUMM) 7.7 6.8 RBC (4.70 - 6.10 /CUMM) 3.17 L 3.22 L Hgb (14.0 - 18.0 G/DL) 10.6 L 10.9 L Hct (42 - 52 %) 31.7 L 32.1 L MCV (80.0 - 94.0 FL) 100.0 H 99.5 H MCH (27.0 - 31.0 PG) 33.6 H 33.7 H RDW (11.5 - 14.5 %) 14.4 14.1 Plt Count (130 - 400 /CUMM) 150 146 MPV (7.4 - 10.4 FL) 8.7 8.2 Gran % (42.2 - 75.2 %) 75.1 69.2 Lymphocytes % (20.5 - 51.1 %) 11.8 L 16.2 L Monocytes % (1.7 - 9.3 %) 9.2 10.8 H Eosinophils % (0 - 5 %) 3.9 3.6 Basophils % (0.0 - 2.0 %) 0 L 0.2 Absolute Granulocytes (1.4 - 6.5 /CUMM) 5.8 4.7 Absolute Lymphocytes (1.2 - 3.4 /CUMM) 0.9 L 1.1 L Absolute Monocytes (0.10 - 0.60 /CUMM) 0.7 H 0.7 H Absolute Eosinophils (0.0 - 0.7 /CUMM) 0.3 0.2 Absolute Basophils (0.0 - 0.2 /CUMM) 0 0 PUBS MCHC (33.0 - 37.0 G/DL) 33.5 33.9 06/02 0135 Urines Urine Color (YEL,AMB,STR) YEL Urine Clarity (CLEAR) CLEAR Urine pH (5.0 - 8.0) 6.0 Ur Specific [place] (1.001 - 1.035) 1.015 Urine Protein (NEG,<30 MG/DL) NEG Urine Ketones (NEG) NEG Urine Nitrite (NEG) NEG Urine Bilirubin (NEG) NEG Urine Urobilinogen (0.1 - 1.0 EU/dl) 0.2 Ur Leukocyte Esterase (NEG) NEG Ur Microscopic SEDIMENT EXAMINED Urine RBC (0 - 5 /HPF) 3-5 Ur Epithelial Cells (NONE,FEW) RARE Urine Hemoglobin (NEG) MOD H Urine Glucose (N MG/DL) NEG Vital Signs & I&O Last 24 Hrs of Vitals and I&O: Vital Signs Date Time Temp Pulse Resp B/P Pulse O2 O2 Flow FiO2 Ox Delivery Rate 06/03 1103 Room Air 2.0L 06/03 1055 Room Air 2.0L 06/03 0927 120/62 06/03 0605 98.4 62 20 126/86 94 Room Air 06/03 0013 98.4 60 20 124/68 94 Room Air 06/02 1641 98.5 61 20 126/70 95 Intake & Output 06/03 1600 06/03 0800 06/03 0000 Intake Total 0 Output Total 450 600 Balance -450 -600 Intake, Oral 0 Output, Urine 450 600 Impression/Plan Impression/Plan Impression/Plan: General: Alert and oriented, no acute distress Cardiac: RRR, s1s2 Pulmonary: Bilateral lung sounds clear to auscutation Abdomen: Non-tender, non-distended Extremities: Moves all extremities, distal sensate intact. SKin warm and well perfused. Calves soft and non-tender, dp pulses palpable bilaterally. Surgical site: Right thigh: Dressing dry and intact, swelling noted, thigh compartment soft IMPRESSION This is a gentleman with chronic kidney disease, previous ischemic heart disease with previous [place], hyperlipidemia, peripheral vascular disease, previous AAA repair, who is on clopidogrel for antiplatelet therapy for peripheral vascular disease, hypertension hyperlipidemia now here with a hip fracture s/p surg on His issues include Sig delirium due to narcotics, and multiple other factors Urinary retention Pain in the surg site improving, now with mild delirium last night which seems to have resolved related to medications versus admission versus age and vascular disease Postop constipation with needs to be treated Mild cognitive impairment which is being worked up before with CT scan and 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 which is also complicating the issue is already on maximum medical therapy IHD stable Hypertension and hyperlipidemia stable Previous urinary stricture now has on and off urinary retention requiring a straight cath Ischemic heart disease hypertension stable Previous aaa CT findings of the chest reviewed and pt would need ct chest in few months Sig djd cspine Recommendation Watch him in the hospital DC lorazepam Haldol low dose q8 prn and watch qtc Check magnesium and replete if needed Needs sitter Dc all narcotics Reorientation therapy No benzo Prn tylenol for pain Reorientation therapy Hold warfarin and check inr in am Daily labs Urine culture and if he needs frequent cath can reinsert holden Call urology aswell plavix can be resumed only when is completely stable Continue his anti-hypertensive and the cholesterol lowering drugs Aggressive bowel regimen. Check his magnesium level and replace as needed Follow hemoglobin and hematocrit Check labs today Discussed with son-in-law at the bedside extensively We will follow closely patient is DNR/DNI
[2016-06-03 18:49] VITALS: BP 125/62
--- NOTE | 2016-06-03 18:50 | RADIOLOGY REPORT ---
EXAMINATION: XR PORTABLE CHEST CLINICAL INFORMATION: Chest wheezing. COMPARISON: Chest x-ray 12/30/2015 CT chest 05/30/2016 TECHNIQUE: Portable view of the chest was obtained. 6:15 PM FINDINGS: No acute abnormality. Lungs are clear. No pleural effusion or pulmonary vascular congestion. Cardiac and mediastinal contours are normal. Multilevel degenerative change of dorsal spine. IMPRESSION: No acute change of chest.
[2016-06-03 22:01] VITALS: BP 132/70; BP 132/710
[2016-06-04 00:07] VITALS: BP 94/64
[2016-06-04 08:00] VITALS: BP 124/65
[2016-06-04 08:32] LABS: ABSOLUTE BASOPHIL COUNT 0 /CUMM (0.0-0.2); ABSOLUTE EOSINOPHIL COUNT 0.3 /CUMM (0.0-0.7); ABSOLUTE GRANULOCYTE CT 4.3 /CUMM (1.4-6.5); ABSOLUTE LYMPH COUNT 1.1 /CUMM (1.2-3.4); ABSOLUTE MONOCYTE COUNT 0.6 /CUMM (0.10-0.60); BASOPHIL % 0.3 % (0.0-2.0); GRANULOCYTE % 68.9 % (42.2-75.2); HEMATOCRIT 30.3 % (42-52); MEAN CORPUSCULAR HGB 33.9 PG (27.0-31.0); MEAN CORPUSCULAR HGB CONC 33.8 G/DL (33.0-37.0); MEAN CORPUSCULAR VOLUME 100.3 FL (80.0-94.0); MEAN PLATELET VOLUME 8.6 FL (7.4-10.4); PLATELET COUNT 150 /CUMM (130-400); RBC DISTRIBUTION WIDTH 14.3 % (11.5-14.5); RED BLOOD CELL CT 3.02 /CUMM (4.70-6.10); WHITE BLOOD CELL COUNT 6.3 /CUMM (4.8-10.8)
[2016-06-04 08:33] LABS: PT 36.4 SEC (9.4-12.5)
--- NOTE | 2016-06-04 08:41 | PN- Housestaff ---
Subjective Follow-up For: R hip fracture s/p ORIF Subjective: No acute events overnight. Patient seen and examined this morning. He appears lethargic and confused. He offers no complaints. He continues to have low urine output. Review of Systems Constitutional: Reports: see HPI. Objective Last 24 Hrs of Vital Signs/I&O Vital Signs Date Time Temp Pulse Resp B/P Pulse O2 O2 Flow FiO2 Ox Delivery Rate 06/04 1634 97.5 60 16 110/60 96 Room Air 06/04 1600 96 Room Air 06/04 0928 97.6 68 124/65 06/04 0800 93 Room Air Room Air 06/04 0800 97.6 68 18 124/65 92 Room Air 06/04 0007 98.2 62 18 94/64 92 Room Air 06/04 0000 Room Air 06/03 2201 65 20 132/70 93 Room Air 06/03 2157 65 132/70 Intake & Output 06/04 1600 06/04 0800 06/04 0000 Intake Total 480 Output Total 150 100 400 Balance 330 -100 -400 Intake, Oral 480 Output, Urine 150 100 400 Patient 73.482 kg Weight Physical Exam General Appearance: Alert HEENT: Mucous Membr. moist/pink Cardiovascular: Regular Rate, Normal S1, Normal S2, No Murmurs, Gallops, Rubs Lungs: Clear to Auscultation, Normal Air Movement Abdomen: Soft, No Tenderness, Positive Bowel Sounds Extremities: No Clubbing, No Cyanosis, No Edema Current Medications: Current Medications Sig/Chirag Start time Last Medication Dose Route Stop Time Status Admin Acetaminophen 650 MG .STK-MED ONE 06/04 918 DC PO 06/04 09 Acetaminophen 650 MG .STK-MED ONE 06/04 0400 DC PO 06/04 040 Acetaminophen 650 MG Q6P PRN 05/30 1600 AC 06/04 PO 0928 Acetaminophen 1,000 MG Q6P PRN 05/30 1600 AC 06/01 IV 0032 Atorvastatin Calcium 40 MG 1700 05/30 1700 AC 06/04 PO 1617 Carvedilol 12.5 MG BID 05/30 2200 AC 06/04 PO 0928 Ceftriaxone Sodium 1,000 MG DAILY@1700 06/03 1700 DC 06/04 IV 1611 Furosemide 20 MG DAILY 05/31 1000 AC 06/04 PO 0928 Polyethylene Glycol 17 GM DAILY 06/05 1000 AC PO Polyethylene Glycol 17 GM DAILY 06/01 1607 DC 06/04 PO 0928 Ramelteon 8 MG AT BEDTIME 06/03 2200 AC 06/03 PO 2157 Senna/Docusate Sodium 1 TAB BID 06/04 2200 AC PO Senna/Docusate Sodium 1 TAB BID PRN 06/01 1615 DC 06/04 PO 0928 Last 24 Hrs of Lab/Wilner Results Last 24 Hrs of Labs/Mics: Laboratory Tests 06/04/16 0650: Anion Gap 8, Estimated GFR 52 L, BUN/Creatinine Ratio 22.3, Magnesium 2.0, PT 36.4 H, INR 3.51 H, CBC w Diff NO MAN DIFF REQ, RBC 3.02 L, MCV 100.3 H, MCH 33.9 H, RDW 14.3, MPV 8.6, Gran % 68.9, Lymphocytes % 16.7 L, Monocytes % 9.1, Eosinophils % 5.0, Basophils % 0.3, Absolute Granulocytes 4.3, Absolute Lymphocytes 1.1 L, Absolute Monocytes 0.6, Absolute Eosinophils 0.3, Absolute Basophils 0, PUBS MCHC 33.8 UCx (06/03): NGTD BCx (06/03): NGTD x 2 Assessment/Plan Assessment: This is a 85-year-old male with past medical history of CAD status post [place], TIA, hypertension, congestive heart failure, hyperlipidemia, AAA status post surgery and stent placement, questionable lung nodule, presents with chief complaint of mechanical fall. Vitals creatinine 1.4, hemoglobin 11.9, platelets 152, white count 7.4 EKG does not show any acute findings. We'll admit the patient to general med floor and monitor for the following: Delirium: Patient was combative and delirious two nights ago, given one dose of haldol 0.4mg, due to prolonged (QTc will avoid any repeat doses or any other Qtc prolonging meds). Etiology unclear, have ordered reversible dementia w/u, to r/o any infectious cause, he has been afebrile, white count stable. * Urology consulted given patient's history of ureteral stricture and urinary retention. Appreciate their recs. * Ceftriaxone discontinued as UCx (06/03) NGTD. * EKG yesterday with prolonged QTc of 536. Repeat EKG ordered today. Give haldol PRN for agitation if QTC is improved, if not, give low-dose benzos. * All benzodiazepines and all narcotics discontinued. * Reorient patient frequently. * Supervise patient while eating. * Fall precautions. * Patient started on aggressive bowel regimen with scheduled Miralax and Senna with instructions to hold for diarrhea. Hip fracture status post ORIF POD#5: MRI hip showed acute fracture of the right greater trochanter with partial intertrochanteric extension anticomplement of the fracture extending longitudinally through The collarbone into the proximal femoral diaphysis. He is status post RF, postoperative day 5. patient tolerating regular diet well Plavix on hold, patient started on Coumadin we'll continue on Coumadin for 6 weeks and then will restart Plavix as per ortho, History of [place]/HTN/HLD: Will continue Lasix 20 mg daily, Lipitor 40 mg daily, carvedilol 12.5 mg twice a day Spironolactone(TO BE CONTINUED UPON DISCHARGE) and isosorbide on hold Pain management with Tylenol. Regular diet DVT prophylaxis with Coumadin Patient is DNR/DNI Problem List: 1. Fracture of greater trochanter of right femur 2. Status post hip surgery Pain Ratin Pain Location: N/A Pain Goal: Remain pain free Pain Plan: Tylenol 1 g IV Q8H PRN for moderate pain (scale 4-6) Tylenol 650 mg PO Q6H PRN for mild pain (scale 1-3) Tomorrow's Labs & Rationales: CBC to monitor H/H in the setting of anemia BMP to monitor lytes and kidney function in the setting of CKD INR to adjust warfarin dosing
--- NOTE | 2016-06-04 12:58 | PN- Pulmonary ---
Subjective HPI/Critical Care Issues: Overnight events : Patient was combative and delirious overnight received one dose of IV Ativan and 0.4 mg of IM Haldol. Sleepy and less combative afebrile Qtc was prolonged yesterday vss Still has urinary retention Offers no other complaints Objective Current Medications: Current Medications Sig/Chirag Start time Last Medication Dose Route Stop Time Status Admin Acetaminophen 650 MG .STK-MED ONE 06/04 0400 DC PO 06/04 0401 Acetaminophen 650 MG Q6P PRN 05/30 1600 AC 06/04 PO 0928 Acetaminophen 1,000 MG Q6P PRN 05/30 1600 AC 06/01 IV 0032 Atorvastatin Calcium 40 MG 1700 05/30 1700 AC 06/03 PO 1851 Carvedilol 12.5 MG BID 05/30 2200 AC 06/04 PO 0928 Ceftriaxone Sodium 1,000 MG DAILY@1700 06/03 1700 AC 06/03 IV 1851 Furosemide 20 MG DAILY 05/31 1000 AC 06/04 PO 0928 Lorazepam 1 MG ONCE ONE 06/03 1615 DC 06/03 IV 06/03 1616 1641 Lorazepam 0.5 MG ONCE PRN 06/02 2345 DC 06/03 IV 0000 Polyethylene Glycol 17 GM DAILY 06/01 1607 AC 06/04 PO 0928 Ramelteon 8 MG AT BEDTIME 06/03 2200 AC 06/03 PO 2157 Senna/Docusate Sodium 1 TAB BID PRN 06/01 1615 AC 06/04 PO 0928 Vital Signs & I&O Last 24 Hrs of Vitals and I&O: Vital Signs Date Time Temp Pulse Resp B/P Pulse O2 O2 Flow FiO2 Ox Delivery Rate 06/04 928 97.6 68 124/65 06/04 08 93 Room Air Room Air 06/04 08 97.6 68 18 124/65 92 Room Air 06/04 0007 98.2 62 18 94/64 92 Room Air 06/04 0000 Room Air 06/03 220 65 20 132/70 93 Room Air 06/03 2157 65 132/70 06/03 1849 98.0 63 20 125/62 96 Room Air 06/03 1600 Room Air Intake & Output 06/04 1600 06/04 0800 06/04 0000 Intake Total Output Total 100 400 Balance -100 -400 Output, Urine 100 400 Impression/Plan Impression/Plan Impression/Plan: General: Alert and oriented, no acute distress Cardiac: RRR, s1s2 Pulmonary: Bilateral lung sounds clear to auscutation Abdomen: Non-tender, non-distended Extremities: Moves all extremities, distal sensate intact. SKin warm and well perfused. Calves soft and non-tender, dp pulses palpable bilaterally. Surgical site: Right thigh: Dressing dry and intact, swelling noted, thigh compartment soft IMPRESSION This is a gentleman with chronic kidney disease, previous ischemic heart disease with previous [place], hyperlipidemia, peripheral vascular disease, previous AAA repair, who is on clopidogrel for antiplatelet therapy for peripheral vascular disease, hypertension hyperlipidemia now here with a hip fracture s/p surg on His issues include Sig delirium due to narcotics, and multiple other factors improving Urinary retention stable Pain in the surg site improving, now with mild delirium last night which seems to have resolved related to medications versus admission versus age and vascular disease Postop constipation with needs to be treated Mild cognitive impairment which is being worked up before with CT scan and 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 which is also complicating the issue is already on maximum medical therapy IHD stable Hypertension and hyperlipidemia stable Previous urinary stricture now has on and off urinary retention requiring a straight cath Ischemic heart disease hypertension stable Previous aaa CT findings of the chest reviewed and pt would need ct chest in few months Sig djd cspine Recommendation Watch him in the hospital Check qtc Check magnesium and replete if needed Needs sitter Dc all narcotics Reorientation therapy No benzo Prn tylenol for pain Reorientation therapy Hold warfarin and check inr in am Daily labs DC abx as urine culture is neg Call urology aswell plavix can be resumed only when is completely stable Continue his anti-hypertensive and the cholesterol lowering drugs Aggressive bowel regimen. Follow hemoglobin and hematocrit Check labs today Start po feeding under supervison If qtc is better and if he gets agitated then will use haldol if not we will use low dose benzo as a last resort We will follow closely patient is DNR/DNI
--- NOTE | 2016-06-04 16:32 | PN- Orthopedic ---
See Addendum Subjective Subjective: sleeping/mental status changes noted. Patient has a sitter in the room due to some combativeness Objective Vital Signs and I&Os Vital Signs Date Time Temp Pulse Resp B/P Pulse O2 O2 Flow FiO2 Ox Delivery Rate 06/04 0928 97.6 68 124/65 06/04 0800 93 Room Air Room Air 06/04 0800 97.6 68 18 124/65 92 Room Air 06/04 0007 98.2 62 18 94/64 92 Room Air 06/04 0000 Room Air 06/03 2201 65 20 132/70 93 Room Air 06/03 2157 65 132/70 06/03 1849 98.0 63 20 125/62 96 Room Air Intake & Output 06/04 1600 06/04 0800 06/04 0000 06/03 1600 06/03 0800 06/03 0000 Intake Total 480 120 0 Output Total 150 100 400 450 450 600 Balance 330 -100 -400 -330 -450 -600 Intake, Oral 480 120 0 Output, Urine 150 100 400 450 450 600 Patient 162 lb Weight Physical Exam: Wound is clean and dry. Dressings dry. Calf is soft and nontender. No rotatory deformity no leg length discrepancy Assessment/Plan Assessment/Plan Status post ORIF right intertrochanteric hip fracture-orthopedically stable. Medicine treating mental status changes. Not unusual following anesthesia. Patient had a general anesthesia due to the fact that he had been on Plavix at the time of his injury and surgery Core Measures/Miscellaneous Venous Thromboembolism VTE Risk Factors: Acute medical illness, Immobility, paresis VTE Contraindications: No Contraindications VTE Prophylaxis Ordered Inpt: Pharm- Heparin VTE Diagnosis: No VTE Type: NONE VTE Confirmed by (Test): NONE Beta Jaspal Is Beta Jaspal a Home Med? Yes Antibiotics Is Patient on Antibiotics? No Attending MD Review Statement Attending Statement Attending MD Statement: examined this patient
[2016-06-04 16:34] VITALS: BP 110/60
[2016-06-04 23:45] VITALS: BP 110/64
[2016-06-05 08:00] VITALS: BP 124/64
[2016-06-05 08:02] LABS: ABSOLUTE BASOPHIL COUNT 0 /CUMM (0.0-0.2); ABSOLUTE EOSINOPHIL COUNT 0.3 /CUMM (0.0-0.7); ABSOLUTE GRANULOCYTE CT 3.8 /CUMM (1.4-6.5); ABSOLUTE MONOCYTE COUNT 0.6 /CUMM (0.10-0.60); BASOPHIL % 0.5 % (0.0-2.0); EOSINOPHIL % 5.8 % (0-5); GRANULOCYTE % 66.8 % (42.2-75.2); HEMATOCRIT 29.3 % (42-52); MEAN CORPUSCULAR HGB 33.4 PG (27.0-31.0); MEAN CORPUSCULAR HGB CONC 33.8 G/DL (33.0-37.0); MEAN CORPUSCULAR VOLUME 98.9 FL (80.0-94.0); MEAN PLATELET VOLUME 8.4 FL (7.4-10.4); PLATELET COUNT 160 /CUMM (130-400); RBC DISTRIBUTION WIDTH 14.2 % (11.5-14.5); RED BLOOD CELL CT 2.96 /CUMM (4.70-6.10); WHITE BLOOD CELL COUNT 5.8 /CUMM (4.8-10.8)
[2016-06-05 09:05] LABS: PT 28.7 SEC (9.4-12.5)
--- NOTE | 2016-06-05 11:15 | PN- Orthopedic ---
Subjective Subjective: More comfortable in bed today area and he is also more alert Objective Vital Signs and I&Os Vital Signs Date Time Temp Pulse Resp B/P Pulse O2 O2 Flow FiO2 Ox Delivery Rate 06/05 0955 64 116/50 06/05 08 98.6 61 18 124/64 91 06/05 0000 96 Room Air 06/04 2345 98.3 67 18 110/64 94 Room Air 06/04 2115 59 124/70 06/04 1634 97.5 60 16 110/60 96 Room Air 06/04 1600 96 Room Air Intake & Output 06/05 1600 06/05 0800 06/05 0000 06/04 1600 06/04 0800 06/04 0000 Intake Total 240 400 480 Output Total 250 225 150 100 400 Balance -10 175 330 -100 -400 Intake, Oral 240 400 480 Output, Urine 250 225 150 100 400 Patient 162 lb Weight Physical Exam: Calf soft nontender. Neuro intact distally. Assessment/Plan Assessment/Plan Status post ORIF right intertrochanteric hip fracture PT should see patient especially now that he is less confused. Patient can be weightbearing as tolerated Attending MD Review Statement Attending Statement Attending MD Statement: examined this patient, discuss w/resident/PA/[employer], discussed w/nursing
--- NOTE | 2016-06-05 11:44 | PN- Pulmonary ---
Subjective HPI/Critical Care Issues: Doing well Now less confused Holden in Mild pain both hip Did eat Objective Current Medications: Current Medications Sig/Chirag Start time Last Medication Dose Route Stop Time Status Admin Acetaminophen 650 MG .STK-MED ONE 06/05 0333 DC PO 06/05 0334 Acetaminophen 650 MG Q6P PRN 05/30 1600 AC 06/05 PO 0952 Acetaminophen 1,000 MG Q6P PRN 05/30 1600 AC 06/01 IV 0032 Atorvastatin Calcium 40 MG 1700 05/30 1700 AC 06/04 PO 1617 Carvedilol 12.5 MG BID 05/30 2200 AC 06/05 PO 0955 Ceftriaxone Sodium 1,000 MG DAILY@1700 06/03 1700 DC 06/04 IV 1611 Furosemide 20 MG DAILY 05/31 1000 AC 06/05 PO 0952 Polyethylene Glycol 17 GM DAILY 06/05 1000 AC 06/05 PO 0949 Polyethylene Glycol 17 GM DAILY 06/01 1607 DC 06/04 PO 0928 Ramelteon 8 MG AT BEDTIME 06/03 2200 AC 06/04 PO 2115 Senna/Docusate Sodium 1 TAB BID 06/04 2200 AC 06/05 PO 0955 Senna/Docusate Sodium 1 TAB BID PRN 06/01 1615 DC 06/04 PO 0928 Vital Signs & I&O Last 24 Hrs of Vitals and I&O: Vital Signs Date Time Temp Pulse Resp B/P Pulse O2 O2 Flow FiO2 Ox Delivery Rate 06/05 0955 64 116/50 06/05 0800 95 Room Air 06/05 0800 98.6 61 18 124/64 91 06/05 0000 96 Room Air 06/04 2345 98.3 67 18 110/64 94 Room Air 06/04 2115 59 124/70 06/04 1634 97.5 60 16 110/60 96 Room Air 06/04 1600 96 Room Air Intake & Output 06/05 1600 06/05 0800 06/05 0000 Intake Total 240 400 Output Total 250 225 Balance -10 175 Intake, Oral 240 400 Output, Urine 250 225 Impression/Plan Impression/Plan Impression/Plan: General: Alert and oriented, no acute distress Cardiac: RRR, s1s2 Pulmonary: Bilateral lung sounds clear to auscutation Abdomen: Non-tender, non-distended Extremities: Moves all extremities, distal sensate intact. SKin warm and well perfused. Calves soft and non-tender, dp pulses palpable bilaterally. Surgical site: Right thigh: Dressing dry and intact, swelling noted, thigh compartment soft IMPRESSION This is a gentleman with chronic kidney disease, previous ischemic heart disease with previous [place], hyperlipidemia, peripheral vascular disease, previous AAA repair, who is on clopidogrel for antiplatelet therapy for peripheral vascular disease, hypertension hyperlipidemia now here with a hip fracture s/p surg on His issues include REsolved Sig delirium due to narcotics, and multiple other factors Urinary retention stable s/p holden Pain in the surg site improving, now Postop constipation resolving Mild cognitive impairment which is being worked up before with CT scan and 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 which is also complicating the issue is already on maximum medical therapy IHD stable Hypertension and hyperlipidemia stable Previous urinary stricture now has on and off urinary retention requiring a straight cath Ischemic heart disease hypertension stable Previous aaa CT findings of the chest reviewed and pt would need ct chest in few months Sig djd cspine Recommendation Watch him in the hospital Check qtc daily NO further narcotics Reorientation therapy No benzo Prn tylenol for pain Reorientation therapy Hold warfarin and check inr in am Daily labs Call urology aswell plavix can be resumed only when is completely stable Continue his anti-hypertensive and the cholesterol lowering drugs Aggressive bowel regimen. Start po feeding under supervison If qtc is better and if he gets agitated then will use haldol if not we will use low dose benzo as a last resort We will follow closely patient is DNR/DNI
--- NOTE | 2016-06-05 13:08 | Cons- Urology ---
General Information and HPI Consulting Request Date of Consult: 06/05/16 Requested By: MARSHA VASQUEZ,NAY Egan Reason for Consult: urine retention History of Present Illness: 86 year old with right hip fracture surgery 6 days ago followed by confusion and urine retention hx of turp for bph [address] calixto at home has diurnal urinary frequency, nocturia x2 Allergies/Medications Allergies: Coded Allergies: acetaminophen (From PERCOCET) (HALLUCINATIONS 05/30/16) oxycodone (From PERCOCET) (HALLUCINATIONS 05/30/16) Home Med List: Atorvastatin Calcium 40 MG TABLET 1 TAB PO DAILY CHOLESTEROL (Reported) Carvedilol 12.5 MG TABLET 1 TAB PO BID HEART (Reported) Cholecalciferol (Vitamin D3) (Unknown Strength) TABLET (Unknown Dose) PO BID SUPPLEMENT (Reported) Clopidogrel Bisulfate (Clopidogrel) 75 MG TABLET 1 TAB PO DAILY BLOOD THINNER (Reported) Cyanocobalamin (Vitamin B-12) 1,000 MCG TABLET 1 TAB PO DAILY SUPPLEMENT ( Reported) Furosemide 20 MG TABLET 1 TAB PO DAILY WATER PILL (Reported) Isosorbide Mononitrate (Isosorbide Mononitrate ER) 30 MG TAB.ER.24H 1 TAB PO DAILY HEART (Reported) Spironolactone 25 MG TABLET 1 TAB PO DAILY HEART (Reported) Warfarin Sodium (Coumadin) 2.5 MG TABLET 1 TAB PO DAILY post hip surgery anticoagulati Current Medications: Current Medications Sig/Chirag Start time Last Medication Dose Route Stop Time Status Admin Acetaminophen 650 MG .STK-MED ONE 06/05 0333 DC PO 06/05 0334 Acetaminophen 650 MG Q6P PRN 05/30 1600 AC 06/05 PO 0952 Acetaminophen 1,000 MG Q6P PRN 05/30 1600 AC 06/01 IV 0032 Atorvastatin Calcium 40 MG 1700 05/30 1700 AC 06/04 PO 1617 Carvedilol 12.5 MG BID 05/30 2200 AC 06/05 PO 0955 Ceftriaxone Sodium 1,000 MG DAILY@1700 06/03 1700 DC 06/04 IV 1611 Furosemide 20 MG DAILY 05/31 1000 AC 06/05 PO 0952 Polyethylene Glycol 17 GM DAILY 06/05 1000 AC 06/05 PO 0949 Polyethylene Glycol 17 GM DAILY 06/01 1607 DC 06/04 PO 0928 Ramelteon 8 MG AT BEDTIME 06/03 2200 AC 06/04 PO 2115 Senna/Docusate Sodium 1 TAB BID 06/04 2200 AC 06/05 PO 0955 Senna/Docusate Sodium 1 TAB BID PRN 06/01 1615 DC 06/04 PO 0928 Past History Medical History Blood Transfusion Hx: No Neurological: CVA, TIA EENT: NONE Cardiovascular: hypertension, hyperlipidemia, myocardial infarction, peripheral vascular disease Respiratory: pulmonary nodule? 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 Home Who Do You Live With? spouse Services at Home: None Primary Language: Albanian Smoking Status: Former Smoker ETOH Use: occasional use Illicit Drug Use: denies illicit drug use Functional Ability ADLs Independent: dressing, eating, toileting, bathing. Ambulation: independent IADLs Independent: shopping, housework, finances, food prep, telephone, transportation , medication admin. Exam & Diagnostic Data Vital Signs and I&O Vital Signs Date Time Temp Pulse Resp B/P Pulse O2 O2 Flow FiO2 Ox Delivery Rate 06/05 0955 64 116/50 06/05 0800 95 Room Air 06/05 0800 98.6 61 18 124/64 91 06/05 0000 96 Room Air 06/04 2345 98.3 67 18 110/64 94 Room Air 06/04 2115 59 124/70 06/04 1634 97.5 60 16 110/60 96 Room Air 06/04 1600 96 Room Air Intake & Output 06/05 1600 06/05 0800 06/05 0000 06/04 1600 06/04 0800 06/04 0000 Intake Total 240 400 480 Output Total 250 225 150 100 400 Balance -10 175 330 -100 -400 Intake, Oral 240 400 480 Output, Urine 250 225 150 100 400 Patient 162 lb Weight oob in chair sia urine oper holden negative urine c/s on Assessment/Plan Assessment/Plan impression: post op urine retention due to anesthesia, recurrent bph and transient confusion advise: flomax holden removal /voiding trial in 2-3 days Consult Acknowledgment - Thank you for your consult request. Attending MD Review Statement Attending Statement Attending MD Statement: examined this patient Attending Assessment/Plan: tameka ba md urologist lakia leblanc
[2016-06-05 16:15] VITALS: BP 122/72
[2016-06-06 08:00] VITALS: BP 133/64
--- NOTE | 2016-06-06 10:39 | PN- Pulmonary ---
Subjective HPI/Critical Care Issues: DOing ok but still has sig delirium at times More confused this am Objective Current Medications: Current Medications Sig/Chirag Start time Last Medication Dose Route Stop Time Status Admin Acetaminophen 650 MG Q6P PRN 05/30 1600 AC 06/05 PO 0952 Acetaminophen 1,000 MG Q6P PRN 05/30 1600 AC 06/01 IV 0032 Atorvastatin Calcium 40 MG 1700 05/30 1700 AC 06/05 PO 1634 Carvedilol 12.5 MG BID 05/30 2200 AC 06/05 PO 2144 Furosemide 20 MG DAILY 05/31 1000 AC 06/05 PO 0952 Polyethylene Glycol 17 GM DAILY 06/05 1000 AC 06/05 PO 0949 Ramelteon 8 MG AT BEDTIME 06/03 2200 AC 06/05 PO 2144 Senna/Docusate Sodium 1 TAB BID 06/04 2200 AC 06/05 PO 2144 Tamsulosin HCl 0.4 MG 1700 06/05 1700 AC 06/05 PO 1634 Vital Signs & I&O Last 24 Hrs of Vitals and I&O: Vital Signs Date Time Temp Pulse Resp B/P Pulse O2 O2 Flow FiO2 Ox Delivery Rate 06/06 08 98.0 67 20 133/64 93 Room Air Room Air 06/05 1615 98.5 73 21 122/72 94 Room Air Intake & Output 06/06 1600 06/06 0800 06/06 0000 Intake Total 900 Output Total 450 550 Balance -450 350 Intake, Oral 900 Output, Urine 450 550 Impression/Plan Impression/Plan Impression/Plan: General: Alert and oriented, no acute distress, but has sig ing with confusion Cardiac: RRR, s1s2 Pulmonary: Bilateral lung sounds clear to auscutation Abdomen: Non-tender, non-distended Extremities: Moves all extremities, distal sensate intact. SKin warm and well perfused. Calves soft and non-tender, dp pulses palpable bilaterally. Surgical site: Right thigh: Dressing dry and intact, swelling noted, thigh compartment soft IMPRESSION This is a gentleman with chronic kidney disease, previous ischemic heart disease with previous [place], hyperlipidemia, peripheral vascular disease, previous AAA repair, who is on clopidogrel for antiplatelet therapy for peripheral vascular disease, hypertension hyperlipidemia now here with a hip fracture s/p surg on His issues include REsolving Sig delirium due to previous narcotics, and multiple other factors Urinary retention stable s/p holden urology note noted Pain in the surg site improving, now Postop constipation resolving Mild cognitive impairment which is being worked up before with CT scan and 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 which is also complicating the issue is already on maximum medical therapy IHD stable Hypertension and hyperlipidemia stable Previous urinary stricture now has on and off urinary retention requiring a straight cath Ischemic heart disease hypertension stable Previous aaa CT findings of the chest reviewed and pt would need ct chest in few months Sig djd cspine Recommendation Watch him in the hospital, OOB to chair and please take him to the lounge for reorientation rx Check qtc daily and if normal can use low dose seroquel 12.5 bid prn NO further narcotics Reorientation therapy No benzo Prn tylenol for pain Hold warfarin and check inr today and if less than 2 then give one mg coumadin today Daily labs Call urology aswell plavix can be resumed only when is completely stable Continue his anti-hypertensive and the cholesterol lowering drugs Aggressive bowel regimen if no bm pt needs a suppository REcheck mg and keep at 2 We will follow closely patient is DNR/DNI
[2016-06-06 16:46] LABS: ABSOLUTE BASOPHIL COUNT 0 /CUMM (0.0-0.2); ABSOLUTE EOSINOPHIL COUNT 0.4 /CUMM (0.0-0.7); ABSOLUTE GRANULOCYTE CT 4.8 /CUMM (1.4-6.5); ABSOLUTE LYMPH COUNT 0.9 /CUMM (1.2-3.4); ABSOLUTE MONOCYTE COUNT 0.7 /CUMM (0.10-0.60); BASOPHIL % 0.2 % (0.0-2.0); EOSINOPHIL % 6.1 % (0-5); GRANULOCYTE % 70.7 % (42.2-75.2); MEAN CORPUSCULAR HGB 33.9 PG (27.0-31.0); MEAN CORPUSCULAR HGB CONC 34.2 G/DL (33.0-37.0); MEAN CORPUSCULAR VOLUME 99.3 FL (80.0-94.0); MEAN PLATELET VOLUME 8.1 FL (7.4-10.4); PLATELET COUNT 191 /CUMM (130-400); RBC DISTRIBUTION WIDTH 14.3 % (11.5-14.5); RED BLOOD CELL CT 3.03 /CUMM (4.70-6.10); WHITE BLOOD CELL COUNT 6.8 /CUMM (4.8-10.8)
[2016-06-06 16:57] LABS: PT 15.6 SEC (9.4-12.5)
[2016-06-06 17:20] VITALS: BP 124/66
[2016-06-06 23:26] VITALS: BP 128/67
--- NOTE | 2016-06-07 07:52 | PN- Housestaff ---
Subjective Follow-up For: R hip fracture s/p ORIF Subjective: Patient seen and examined this morning. He was lying in bed in no acute distress he was alert but not oriented to time space and person. He remains afebrile, white is within normal limits. Review of Systems Constitutional: Reports: see HPI. Objective Last 24 Hrs of Vital Signs/I&O Vital Signs Date Time Temp Pulse Resp B/P Pulse O2 O2 Flow FiO2 Ox Delivery Rate 06/07 0903 70 116/70 06/07 0816 98.2 62 20 128/68 93 Room Air 06/06 2326 97.8 64 20 128/67 94 Room Air 06/06 2101 62 120/66 06/06 1720 98.2 72 18 124/66 95 Room Air 06/06 1638 65 130/62 Intake & Output 06/07 1600 06/07 0800 06/07 0000 Intake Total 50 170 Output Total 300 700 Balance -250 -530 Intake, IV 20 Intake, Oral 50 150 Output, Urine 300 700 Physical Exam General Appearance: confused Cardiovascular: Regular Rate, Normal S1, Normal S2, systolic murmur Lungs: Clear to Auscultation, Normal Air Movement Abdomen: Normal Bowel Sounds, Soft, No Tenderness Current Medications: Current Medications Sig/Chirag Start time Last Medication Dose Route Stop Time Status Admin Acetaminophen 650 MG Q6P PRN 05/30 1600 AC 06/07 PO 0903 Acetaminophen 1,000 MG Q6P PRN 05/30 1600 AC 06/01 IV 0032 Atorvastatin Calcium 40 MG 1700 05/30 1700 AC 06/06 PO 1638 Carvedilol 12.5 MG BID 05/30 2200 AC 06/07 PO 0903 Furosemide 20 MG DAILY 05/31 1000 AC 06/07 PO 0903 Patient Medication 1 ED .STK-MED ONE 06/06 1415 IN Teaching ED 06/06 1416 Polyethylene Glycol 17 GM DAILY 06/05 1000 AC 06/07 PO 0903 Ramelteon 8 MG AT BEDTIME 06/03 2200 AC 06/06 PO 2100 Senna/Docusate Sodium 1 TAB BID 06/04 220 AC 06/07 PO 0903 Tamsulosin HCl 0.4 MG 1700 06/05 1700 AC 06/06 PO 1638 Warfarin Sodium 1 MG COUMADIN 1700 ONE 06/06 2015 DC 06/06 PO 06/06 Last 24 Hrs of Lab/Wilner Results Last 24 Hrs of Labs/Mics: Laboratory Tests 06/06/16 1630: Anion Gap 8, Estimated GFR 48 L, BUN/Creatinine Ratio 26.4 H, PT 15.6 H, INR 1.49 H, CBC w Diff NO MAN DIFF REQ, RBC 3.03 L, MCV 99.3 H, MCH 33.9 H, RDW 14.3, MPV 8.1, Gran % 70.7, Lymphocytes % 13.0 L, Monocytes % 10.0 H, Eosinophils % 6.1 H, Basophils % 0.2, Absolute Granulocytes 4.8, Absolute Lymphocytes 0.9 L, Absolute Monocytes 0.7 H, Absolute Eosinophils 0.4, Absolute Basophils 0, PUBS MCHC 34.2 Assessment/Plan Assessment: This is a 85-year-old male with past medical history of CAD status post [place], TIA, hypertension, congestive heart failure, hyperlipidemia, AAA status post surgery and stent placement, questionable lung nodule, presents with chief complaint of mechanical fall. Vitals creatinine 1.4, hemoglobin 11.9, platelets 152, white count 7.4 EKG does not show any acute findings. We'll admit the patient to general med floor and monitor for the following: Delirium: Patient was combative and delirious two nights ago, given one dose of haldol 0.4mg, due to prolonged (QTc will avoid any repeat doses or any other Qtc prolonging meds). Etiology unclear, reversible dementia w/u -, no infectious cause, he has been afebrile, white count stable. today he was confused but improved from yesterday. will give low-dose Seroquel tonight if needed if QTC normal. All benzodiazepines and all narcotics discontinuedCeftriaxone discontinued as UCx (06/03) NGTD.Reorient patient frequently.Supervise patient while eating. Will maintain Fall precautions. Urinary retention: Patient has history of urethral stricture and urinary retention and BPH.he was retaining more than 400 amounts of urine and was initially started on straight Protocol followed by Granado catheter. Urinary retention was thought to be secondary to anesthesia for ORIF. Urology was consulted, patient on Flomax along with voiding trials. Hip fracture status post ORIF: MRI hip showed acute fracture of the right greater trochanter with partial intertrochanteric extension anticomplement of the fracture extending longitudinally through The collarbone into the proximal femoral diaphysis. He is status post RF, postoperative day 5. patient tolerating regular diet well Plavix on hold, patient started on Coumadin we'll continue on Coumadin for 6 weeks and then will restart Plavix as per ortho, History of IL/HTN/HLD: Will continue Lasix 20 mg daily, Lipitor 40 mg daily, carvedilol 12.5 mg twice a day Spironolactone(TO BE CONTINUED UPON DISCHARGE) and isosorbide on hold Pain management with Tylenol. Regular diet DVT prophylaxis with Coumadin Patient is DNR/DNI Problem List: 1. Fracture of greater trochanter of right femur 2. Delirium 3. Status post hip surgery Pain Ratin Pain Location: none Pain Goal: Remain pain free Pain Plan: Tylenol 1 g IV Q8H PRN for moderate pain (scale 4-6) Tylenol 650 mg PO Q6H PRN for mild pain (scale 1-3) Tomorrow's Labs & Rationales: CBC to monitor H/H in the setting of anemia BMP to monitor lytes and kidney function in the setting of CKD INR to adjust warfarin dosing
[2016-06-07 08:16] VITALS: BP 128/68
--- NOTE | 2016-06-07 09:41 | PN- Pulmonary ---
Subjective HPI/Critical Care Issues: More awake today still has sundowning Afebrile Seem to be in better spirits Objective Current Medications: Current Medications Sig/Chirag Start time Last Medication Dose Route Stop Time Status Admin Acetaminophen 650 MG Q6P PRN 05/30 1600 AC 06/07 PO 0903 Acetaminophen 1,000 MG Q6P PRN 05/30 1600 AC 06/01 IV 0032 Atorvastatin Calcium 40 MG 1700 05/30 1700 AC 06/06 PO 1638 Carvedilol 12.5 MG BID 05/30 2200 AC 06/07 PO 0903 Furosemide 20 MG DAILY 05/31 1000 AC 06/07 PO 0903 Patient Medication 1 ED .STK-MED ONE 06/06 1415 DC Teaching ED 06/06 1416 Polyethylene Glycol 17 GM DAILY 06/05 1000 AC 06/07 PO 0903 Ramelteon 8 MG AT BEDTIME 06/03 220 AC 06/06 PO 2100 Senna/Docusate Sodium 1 TAB BID 06/04 2200 AC 06/07 PO 0903 Tamsulosin HCl 0.4 MG 1700 06/05 1700 AC 06/06 PO 1638 Warfarin Sodium 1 MG COUMADIN 1700 ONE 06/06 2015 DC 06/06 PO 06/06 Vital Signs & I&O Last 24 Hrs of Vitals and I&O: Vital Signs Date Time Temp Pulse Resp B/P Pulse O2 O2 Flow FiO2 Ox Delivery Rate 06/07 0903 70 116/70 06/07 0816 98.2 62 20 128/68 93 Room Air 06/06 2326 97.8 64 20 128/67 94 Room Air 06/06 2101 62 120/66 06/06 1720 98.2 72 18 124/66 95 Room Air 06/06 1638 65 130/62 06/06 1048 98.0 67 20 133/64 Intake & Output 06/07 1600 06/07 0800 06/07 0000 Intake Total 50 170 Output Total 300 700 Balance -250 -530 Intake, IV 20 Intake, Oral 50 150 Output, Urine 300 700 Laboratory Tests 06/06 1630 Chemistry Sodium (137 - 145 mmol/L) 138 Potassium (3.5 - 5.1 mmol/L) 4.8 Chloride (98 - 107 mmol/L) 102 Carbon Dioxide (22 - 30 mmol/L) 28 Anion Gap (5 - 16) 8 BUN (9 - 20 mg/dL) 37 H Creatinine (0.7 - 1.2 mg/dL) 1.4 H Estimated GFR (>60 ml/min) 48 L BUN/Creatinine Ratio (7 - 25 %) 26.4 H Coagulation PT (9.4 - 12.5 SEC) 15.6 H INR (0.90 - 1.17) 1.49 H Hematology CBC w Diff NO MAN DIFF REQ WBC (4.8 - 10.8 /CUMM) 6.8 RBC (4.70 - 6.10 /CUMM) 3.03 L Hgb (14.0 - 18.0 G/DL) 10.3 L Hct (42 - 52 %) 30.0 L MCV (80.0 - 94.0 FL) 99.3 H MCH (27.0 - 31.0 PG) 33.9 H RDW (11.5 - 14.5 %) 14.3 Plt Count (130 - 400 /CUMM) 191 MPV (7.4 - 10.4 FL) 8.1 Gran % (42.2 - 75.2 %) 70.7 Lymphocytes % (20.5 - 51.1 %) 13.0 L Monocytes % (1.7 - 9.3 %) 10.0 H Eosinophils % (0 - 5 %) 6.1 H Basophils % (0.0 - 2.0 %) 0.2 Absolute Granulocytes (1.4 - 6.5 /CUMM) 4.8 Absolute Lymphocytes (1.2 - 3.4 /CUMM) 0.9 L Absolute Monocytes (0.10 - 0.60 /CUMM) 0.7 H Absolute Eosinophils (0.0 - 0.7 /CUMM) 0.4 Absolute Basophils (0.0 - 0.2 /CUMM) 0 PUBS MCHC (33.0 - 37.0 G/DL) 34.2 Impression/Plan Impression/Plan Impression/Plan: General: Alert and oriented, no acute distress, but has sig sundowing with confusion Cardiac: RRR, s1s2 Pulmonary: Bilateral lung sounds clear to auscutation Abdomen: Non-tender, non-distended Extremities: Moves all extremities, distal sensate intact. SKin warm and well perfused. Calves soft and non-tender, dp pulses palpable bilaterally. Surgical site: Stable IMPRESSION This is a gentleman with chronic kidney disease, previous ischemic heart disease with previous [place], hyperlipidemia, peripheral vascular disease, previous AAA repair, who is on clopidogrel for antiplatelet therapy for peripheral vascular disease, hypertension hyperlipidemia now here with a hip fracture s/p surg on His issues include REsolving Sig delirium due to previous narcotics, and multiple other factors Urinary retention stable s/p holden urology note noted Pain in the surg site improving, now Postop constipation resolving Mild cognitive impairment which is being worked up before with CT scan and 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 which is also complicating the issue is already on maximum medical therapy IHD stable Hypertension and hyperlipidemia stable Previous urinary stricture now has on and off urinary retention requiring a straight cath Ischemic heart disease hypertension stable Previous aaa CT findings of the chest reviewed and pt would need ct chest in few months Sig djd cspine Recommendation Watch him in the hospital, OOB to chair and please take him to the lounge for reorientation rx Check qtc daily and if normal can use low dose seroquel 12.5 bid prn NO further narcotics Reorientation therapy No benzo Prn tylenol for pain Give 2 mg of warfarin today and check INR tomorrow Daily labs Continue his anti-hypertensive and the cholesterol lowering drugs Aggressive bowel regimen REcheck mg and keep at 2 Patient may go to a rehabilitation facility tomorrow May try to DC soon related to her in the day are a home monitor may be appropriate if he is better We will follow closely patient is DNR/DNI
[2016-06-07 16:01] VITALS: BP 96/60
[2016-06-07 16:11] VITALS: BP 102/68
[2016-06-08 00:12] VITALS: BP 101/51
--- NOTE | 2016-06-08 07:34 | PN- Housestaff ---
Subjective Follow-up For: R hip fracture s/p ORIF Subjective: Patient seen and examined this morning. He was lying in bed in no acute distress. He was alert but not oriented to time space and person. He remains afebrile, white is within normal limits. Review of Systems Constitutional: Reports: see HPI. Objective Last 24 Hrs of Vital Signs/I&O Vital Signs Date Time Temp Pulse Resp B/P Pulse O2 O2 Flow FiO2 Ox Delivery Rate 06/08 1631 80 111/62 06/08 1515 97.7 70 20 110/50 93 Room Air 06/08 1032 Room Air 2.0L 06/08 0811 98.1 54 20 114/64 94 Room Air 06/08 0012 97.7 62 20 101/51 95 06/07 1749 64 102/60 Intake & Output 06/08 1600 06/08 0800 06/08 0000 Intake Total 240 Output Total Balance 240 Intake, Oral 240 Physical Exam General Appearance: No Acute Distress Cardiovascular: Regular Rate, Normal S1, Normal S2, systolic murmur Lungs: Clear to Auscultation, Normal Air Movement Abdomen: Normal Bowel Sounds, Soft, No Tenderness Extremities: No Clubbing, No Cyanosis, No Edema Current Medications: Current Medications Sig/Chirag Start time Last Medication Dose Route Stop Time Status Admin Acetaminophen 650 MG Q6P PRN 05/30 1600 AC 06/07 PO 0903 Acetaminophen 1,000 MG Q6P PRN 05/30 1600 AC 06/01 IV 0032 Atorvastatin Calcium 40 MG 1700 05/30 1700 AC 06/08 PO 1629 Bisacodyl 10 MG ONCE ONE 06/08 1130 DC 06/08 CT 06/08 1131 1631 Carvedilol 12.5 MG BID 05/30 2200 AC 06/07 PO 0903 Furosemide 20 MG DAILY 05/31 1000 AC 06/07 PO 0903 Polyethylene Glycol 17 GM DAILY 06/05 1000 AC 06/08 PO 1016 Ramelteon 8 MG AT BEDTIME 06/03 2200 AC 06/06 PO 2100 Senna/Docusate Sodium 1 TAB BID 06/04 2200 AC 06/07 PO 0903 Tamsulosin HCl 0.4 MG 1700 06/05 1700 AC 06/08 PO 1631 Warfarin Sodium 2.5 MG COUMADIN 1700 ONE 06/08 1700 AC PO 06/08 1701 Warfarin Sodium 2.5 MG COUMADIN 1700 ONE 06/07 1700 DC 06/07 PO 06/07 1701 1749 Last 24 Hrs of Lab/Wilner Results Last 24 Hrs of Labs/Mics: Laboratory Tests 06/08/16 0710: Anion Gap 8, Estimated GFR 52 L, BUN/Creatinine Ratio 29.2 H, Magnesium 2.2, PT 14.0 H, INR 1.34 H, CBC w Diff NO MAN DIFF REQ, RBC 3.09 L, MCV 100.4 H, MCH 33.6 H, RDW 14.5, MPV 8.1, Gran % 63.6, Lymphocytes % 18.4 L, Monocytes % 9.3, Eosinophils % 8.2 H, Basophils % 0.5, Absolute Granulocytes 4.1, Absolute Lymphocytes 1.2, Absolute Monocytes 0.6, Absolute Eosinophils 0.5, Absolute Basophils 0, PUBS MCHC 33.5 Assessment/Plan Assessment: This is a 85-year-old male with past medical history of CAD status post [place], TIA, hypertension, congestive heart failure, hyperlipidemia, AAA status post surgery and stent placement, questionable lung nodule, presents with chief complaint of mechanical fall. Vitals creatinine 1.4, hemoglobin 11.9, platelets 152, white count 7.4 EKG does not show any acute findings. We'll admit the patient to general med floor and monitor for the following: Delirium: Patient was combative and delirious two nights ago, given one dose of haldol 0.4mg, due to prolonged (QTc will avoid any repeat doses or any other Qtc prolonging meds). Etiology unclear, reversible dementia w/u -, no infectious cause, he has been afebrile, white count stable. today he was confused but improved from yesterday. will give low-dose Seroquel tonight if needed if QTC normal. All benzodiazepines and all narcotics discontinuedCeftriaxone discontinued as UCx (06/03) NGTD.Reorient patient frequently.Supervise patient while eating. Will maintain Fall precautions. Urinary retention: Patient has history of urethral stricture and urinary retention and BPH.he was retaining more than 400 amounts of urine and was initially started on straight Protocol followed by Granado catheter. Urinary retention was thought to be secondary to anesthesia for ORIF. Urology was consulted, patient on Flomax along with removal of Granado catheter and voiding trials. Hip fracture status post ORIF: MRI hip showed acute fracture of the right greater trochanter with partial intertrochanteric extension anticomplement of the fracture extending longitudinally through The collarbone into the proximal femoral diaphysis. He is status post RF, postoperative day 10 patient tolerating regular diet well, PT has recommended discharge to short-term rehabilitation. Plavix on hold, patient started on Coumadin we'll continue on Coumadin for 6 weeks and then will restart Plavix as per ortho, History of NC/HTN/HLD: Will continue Lasix 20 mg daily, Lipitor 40 mg daily, carvedilol 12.5 mg twice a day Spironolactone(TO BE CONTINUED UPON DISCHARGE) and isosorbide on hold Pain management with Tylenol. Regular diet DVT prophylaxis with Coumadin Patient is DNR/DNI Problem List: 1. Delirium 2. Status post hip surgery 3. Closed right hip fracture Pain Ratin Pain Location: Right hip Pain Goal: Remain pain free Pain Plan: Tylenol 1 g IV Q8H PRN for moderate pain (scale 4-6) Tylenol 650 mg PO Q6H PRN for mild pain (scale 1-3) Tomorrow's Labs & Rationales: CBC to monitor H/H in the setting of anemia BMP to monitor lytes and kidney function in the setting of CKD INR to adjust warfarin dosing
[2016-06-08 08:08] LABS: ABSOLUTE BASOPHIL COUNT 0 /CUMM (0.0-0.2); ABSOLUTE EOSINOPHIL COUNT 0.5 /CUMM (0.0-0.7); ABSOLUTE GRANULOCYTE CT 4.1 /CUMM (1.4-6.5); ABSOLUTE LYMPH COUNT 1.2 /CUMM (1.2-3.4); ABSOLUTE MONOCYTE COUNT 0.6 /CUMM (0.10-0.60); BASOPHIL % 0.5 % (0.0-2.0); EOSINOPHIL % 8.2 % (0-5); GRANULOCYTE % 63.6 % (42.2-75.2); MEAN CORPUSCULAR HGB 33.6 PG (27.0-31.0); MEAN CORPUSCULAR HGB CONC 33.5 G/DL (33.0-37.0); MEAN CORPUSCULAR VOLUME 100.4 FL (80.0-94.0); MEAN PLATELET VOLUME 8.1 FL (7.4-10.4); PLATELET COUNT 205 /CUMM (130-400); RBC DISTRIBUTION WIDTH 14.5 % (11.5-14.5); RED BLOOD CELL CT 3.09 /CUMM (4.70-6.10); WHITE BLOOD CELL COUNT 6.5 /CUMM (4.8-10.8)
[2016-06-08 08:11] VITALS: BP 114/64
--- NOTE | 2016-06-08 10:17 | PN- Pulmonary ---
Subjective HPI/Critical Care Issues: Still confused But had a good day yesterday Confusion persists only in the morning now Qtc has become more normalised Slept ok Objective Current Medications: Current Medications Sig/Chirag Start time Last Medication Dose Route Stop Time Status Admin Acetaminophen 650 MG Q6P PRN 05/30 1600 AC 06/07 PO 0903 Acetaminophen 1,000 MG Q6P PRN 05/30 1600 AC 06/01 IV 0032 Atorvastatin Calcium 40 MG 1700 05/30 1700 AC 06/07 PO 1749 Carvedilol 12.5 MG BID 05/30 2200 AC 06/07 PO 0903 Furosemide 20 MG DAILY 05/31 1000 AC 06/07 PO 0903 Polyethylene Glycol 17 GM DAILY 06/05 1000 AC 06/07 PO 0903 Ramelteon 8 MG AT BEDTIME 06/03 2200 AC 06/06 PO 2100 Senna/Docusate Sodium 1 TAB BID 06/04 2200 AC 06/07 PO 0903 Tamsulosin HCl 0.4 MG 1700 06/05 1700 AC 06/07 PO 1749 Warfarin Sodium 2.5 MG COUMADIN 1700 ONE 06/07 1700 DC 06/07 PO 06/07 1701 1749 Vital Signs & I&O Last 24 Hrs of Vitals and I&O: Vital Signs Date Time Temp Pulse Resp B/P Pulse O2 O2 Flow FiO2 Ox Delivery Rate 06/08 0811 98.1 54 20 114/64 94 Room Air 06/08 0012 97.7 62 20 101/51 95 06/07 1749 64 102/60 06/07 1611 102/68 06/07 1601 98.8 63 20 96/60 92 06/07 1504 Room Air 2.0L Impression/Plan Impression/Plan Impression/Plan: General: Alert and oriented, no acute distress, but has sig with confusion Cardiac: RRR, s1s2 Pulmonary: Bilateral lung sounds clear to auscutation Abdomen: Non-tender, non-distended Extremities: Moves all extremities, distal sensate intact. SKin warm and well perfused. Calves soft and non-tender, dp pulses palpable bilaterally. Surgical site: Stable IMPRESSION This is a gentleman with chronic kidney disease, previous ischemic heart disease with previous [place], hyperlipidemia, peripheral vascular disease, previous AAA repair, who is on clopidogrel for antiplatelet therapy for peripheral vascular disease, hypertension hyperlipidemia now here with a hip fracture s/p surg on His issues include REsolving Sig delirium due to previous narcotics, and multiple other factors, now with still sig delirium Urinary retention stable s/p holden now on flomax and holden removed and pt is urinating ok, Urology following Pain in the surg site improving, now Postop constipation resolving Mild cognitive impairment which is being worked up before with CT scan and 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 which is also complicating the issue is already on maximum medical therapy IHD stable Hypertension and hyperlipidemia stable Previous urinary stricture now has on and off urinary retention requiring a straight cath Ischemic heart disease hypertension stable Previous aaa CT findings of the chest reviewed and pt would need ct chest in few months Sig djd cspine Recommendation KYRA davison Watch him in the hospital, OOB to chair and please take him to the lounge for reorientation rx Check qtc daily and can give low dose seroquel 12.5 this pm NO further narcotics Reorientation therapy No benzo Prn tylenol for pain Give 2.5 mg of warfarin today and check INR tomorrow, also give 30 mg lovenox today one dose Daily labs Continue his anti-hypertensive and the cholesterol lowering drugs Aggressive bowel regimen REcheck mg today and add to this ams labs and keep it more than 2.0 Patient may go to a rehabilitation facility tomorrow May try to dc sitter if stable and can have a supervisor electronics processing may be appropriate if he is better Ask psychiatry to see pt today We will follow closely patient is DNR/DNI
[2016-06-08 15:15] VITALS: BP 110/50
[2016-06-09] VITALS: BP 108/60
--- NOTE | 2016-06-09 11:00 | PN- Housestaff ---
Subjective Follow-up For: R hip fracture s/p ORIF Subjective: Patient seen examined this morning. He still was not oriented but otherwise afebrile, vitals within normal range. Review of Systems Constitutional: Reports: see HPI. Objective Last 24 Hrs of Vital Signs/I&O Vital Signs Date Time Temp Pulse Resp B/P Pulse O2 O2 Flow FiO2 Ox Delivery Rate 06/09 1620 97.5 62 20 100/66 93 06/09 1112 97.9 66 18 110/60 96 Room Air 06/09 0000 98.6 60 20 108/60 92 Room Air 06/08 2226 55 130/60 Intake & Output 06/09 1600 06/09 0800 06/09 0000 Intake Total 1500 240 Output Total 350 30 Balance 1500 -110 -30 Intake, Oral 1500 240 Output, Urine 350 30 Physical Exam General Appearance: Alert, No Acute Distress Cardiovascular: Regular Rate, Normal S1, Normal S2, systolic murmur Lungs: Clear to Auscultation, Normal Air Movement Abdomen: Normal Bowel Sounds, Soft, No Tenderness Extremities: No Clubbing, No Cyanosis, No Edema Current Medications: Current Medications Sig/Chirag Start time Last Medication Dose Route Stop Time Status Admin Acetaminophen 650 MG Q6P PRN 05/30 1600 AC 06/07 PO 0903 Acetaminophen 1,000 MG Q6P PRN 05/30 1600 AC 06/01 IV 0032 Atorvastatin Calcium 40 MG 1700 05/30 1700 AC 06/09 PO 1645 Carvedilol 12.5 MG BID 05/30 2200 AC 06/08 PO 2226 Furosemide 20 MG DAILY 05/31 1000 AC 06/07 PO 0903 Polyethylene Glycol 17 GM DAILY 06/05 1000 AC 06/08 PO 1016 Quetiapine Fumarate 12.5 MG ONCE ONE 06/09 2200 CAN PO 06/09 2201 Quetiapine Fumarate 12.5 MG ONCE ONE 06/09 220 UNVr PO 06/09 2201 Ramelteon 8 MG AT BEDTIME 06/03 2200 DC 06/06 PO 2100 Senna/Docusate Sodium 1 TAB BID 06/04 2200 AC 06/08 PO 2226 Tamsulosin HCl 0.4 MG 1700 06/05 1700 AC 06/09 PO 1645 Warfarin Sodium 2.5 MG COUMADIN 1700 ONE 06/09 1700 DC 06/09 PO 06/09 1701 1645 Assessment/Plan Assessment: This is a 85-year-old male with past medical history of CAD status post [place], TIA, hypertension, congestive heart failure, hyperlipidemia, AAA status post surgery and stent placement, questionable lung nodule, presents with chief complaint of mechanical fall. Vitals creatinine 1.4, hemoglobin 11.9, platelets 152, white count 7.4 EKG does not show any acute findings. We'll admit the patient to general med floor and monitor for the following: Delirium: Patient was combative and delirious early in the week, continues to be confused, due to prolonged (QTc will avoid any repeat doses or any other Qtc prolonging meds). Etiology unclear, reversible dementia w/u -, no infectious cause, he has been afebrile, white count stable. today he was confused but improved from yesterday. will give low-dose Seroquel tonight if needed if QTC normal. All benzodiazepines and all narcotics discontinuedCeftriaxone discontinued as UCx ( 06/03) NGTD.Reorient patient frequently.Supervise patient while eating. Will maintain Fall precautions. Urinary retention: Patient has history of urethral stricture and urinary retention and BPH.he was retaining more than 400 amounts of urine and was initially started on straight Protocol followed by Granado catheter. Urinary retention was thought to be secondary to anesthesia for ORIF. Urology was consulted, patient on Flomax along with removal of Granado catheter and voiding trials. Hip fracture status post ORIF: MRI hip showed acute fracture of the right greater trochanter with partial intertrochanteric extension anticomplement of the fracture extending longitudinally through The collarbone into the proximal femoral diaphysis. He is status post RF, postoperative day 10 patient tolerating regular diet well, PT has recommended discharge to short-term rehabilitation. Plavix on hold, patient started on Coumadin we'll continue on Coumadin for 6 weeks and then will restart Plavix as per ortho, History of [place]/HTN/HLD: Will continue Lasix 20 mg daily, Lipitor 40 mg daily, carvedilol 12.5 mg twice a day Spironolactone(TO BE CONTINUED UPON DISCHARGE) and isosorbide on hold Pain management with Tylenol. Regular diet DVT prophylaxis with Coumadin Patient is DNR/DNI Problem List: 1. Status post hip surgery 2. Closed right hip fracture 3. Delirium Pain Ratin Pain Location: Right hip Pain Goal: Remain pain free Pain Plan: Tylenol 1 g IV Q8H PRN for moderate pain (scale 4-6) Tylenol 650 mg PO Q6H PRN for mild pain (scale 1-3) Tomorrow's Labs & Rationales: CBC to monitor H/H in the setting of anemia BMP to monitor lytes and kidney function in the setting of CKD INR to adjust warfarin dosing
[2016-06-09 11:12] VITALS: BP 110/60
--- NOTE | 2016-06-09 11:51 | PN- Pulmonary ---
Subjective HPI/Critical Care Issues: Much better owing this am aswell afebrile in good spirits Objective Current Medications: Current Medications Sig/Chirag Start time Last Medication Dose Route Stop Time Status Admin Acetaminophen 650 MG Q6P PRN 05/30 1600 AC 06/07 PO 0903 Acetaminophen 1,000 MG Q6P PRN 05/30 1600 AC 06/01 IV 0032 Atorvastatin Calcium 40 MG 1700 05/30 1700 AC 06/08 PO 1629 Carvedilol 12.5 MG BID 05/30 2200 AC 06/08 PO 2226 Furosemide 20 MG DAILY 05/31 1000 AC 06/07 PO 0903 Polyethylene Glycol 17 GM DAILY 06/05 1000 AC 06/08 PO 1016 Ramelteon 8 MG AT BEDTIME 06/03 2200 DC 06/06 PO 2100 Senna/Docusate Sodium 1 TAB BID 06/04 2200 AC 06/08 PO 2226 Tamsulosin HCl 0.4 MG 1700 06/05 1700 AC 06/08 PO 1631 Warfarin Sodium 2.5 MG COUMADIN 1700 ONE 06/09 1700 AC PO 06/09 1701 Warfarin Sodium 2.5 MG COUMADIN 1700 ONE 06/08 1700 DC 06/08 PO 06/08 1701 1838 Vital Signs & I&O Last 24 Hrs of Vitals and I&O: Vital Signs Date Time Temp Pulse Resp B/P Pulse O2 O2 Flow FiO2 Ox Delivery Rate 06/09 1112 97.9 66 18 110/60 96 Room Air 06/09 0000 98.6 60 20 108/60 92 Room Air 06/08 2226 55 130/60 06/08 1631 80 111/62 06/08 1515 97.7 70 20 110/50 93 Room Air Intake & Output 06/09 1600 06/09 0800 06/09 0000 Intake Total 240 Output Total 350 30 Balance -110 -30 Intake, Oral 240 Output, Urine 350 30 Impression/Plan Impression/Plan Impression/Plan: General: Alert and oriented, no acute distress, but has sig sundowing with confusion Cardiac: RRR, s1s2 Pulmonary: Bilateral lung sounds clear to auscutation Abdomen: Non-tender, non-distended Extremities: Moves all extremities, distal sensate intact. SKin warm and well perfused. Calves soft and non-tender, dp pulses palpable bilaterally. Surgical site: Stable IMPRESSION This is a gentleman with chronic kidney disease, previous ischemic heart disease with previous [place], hyperlipidemia, peripheral vascular disease, previous AAA repair, who is on clopidogrel for antiplatelet therapy for peripheral vascular disease, hypertension hyperlipidemia now here with a hip fracture s/p surg on His issues include REsolving Sig delirium due to previous narcotics, and multiple other factors, now with still sig delirium in am with . 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 which is also complicating the issue is already on maximum medical therapy IHD stable Hypertension and hyperlipidemia stable Previous urinary stricture now has on and off urinary retention requiring a straight cath Ischemic heart disease hypertension stable Previous aaa CT findings of the chest reviewed and pt would need ct chest in few months Sig djd cspine Recommendation KYRA davison from the med list Watch him in the hospital, OOB to chair and please take him to the lounge for reorientation rx seroquel 12.5 this pm Check qtc this am NO further narcotics Reorientation therapy No benzo Prn tylenol for pain Give 2.5 mg of warfarin today and check INR tomorrow, also give 30 mg lovenox today one dose if inr is low Daily labs Continue his anti-hypertensive and the cholesterol lowering drugs Aggressive bowel regimen Patient may go to a rehabilitation facility tomorrow Ask psychiatry to see pt today, discussed with child nurse We will follow closely patient is DNR/DNI
--- NOTE | 2016-06-09 15:26 | Cons- Psychiatry ---
Psychiatric Consult Date of Consult: 06/09/16 Reason for Consult: "Delirium/confusion" History of Present Illness: 85-year-old male brought in by ambulance from home on 05/30/2016@1006, with a chief complaint of fall at home. Patient was admitted for surgical repair of a hip fracture. The patient has had delirium related to opiate pain medications, and possibly other reasons. He is not on opiate pain medications at this time. Most recently, the patient was delirious this morning, thought to be , and was aggressive with staff, trying new strike them. The patient has now had his Granado removed, which was placed due to urinary retention; he is being followed by urology. He had been on Rozerem for insomnia, but the family had requested that Leno Dill MD, the attending physician discontinue this medication. The patient is DNR/DNI. He is due to transfer to a rehabilitation/ECF on Monday , 06/10/2016. Allergies: Coded Allergies: acetaminophen (From PERCOCET) (HALLUCINATIONS 05/30/16) oxycodone (From PERCOCET) (HALLUCINATIONS 05/30/16) Current Medications: No psychotropic medications, at this time. Past History Past Medical History Neurological: CVA EENT: NONE Cardiovascular: hypertension, hyperlipidemia, myocardial infarction, peripheral vascular disease Respiratory: pulmonary nodule? 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 Poor historian) Diagnosis: Unknown Risk Factors: age (under 24/over 65), male Substance Use/Abuse History Drug Use/Abuse Substances Used/Abused No (unknown. Poor historian) Substance Abuse Treatment Substance Abuse Treatment Past Substance Abuse [place] No (unknown) Assessment/Plan Mental Status Orientation: Confused, Person Affect: Constricted Speech: Mumbled Neuro-vegetative: Appetite Decreased, Sleep Disturbance Mental Status Exam: I visited the patient today, , 06/09/2016, at 1145, in room 215-1. The patient is alert, sitting up in his chair, with his friend Rik visiting him, who agreed to leave during the interview. He is oriented to person and day. When asked why he is in the hospital, he at first states, "I was dizzy,", but then recalls that he fell, but had to be reminded that he has a fractured hip. He does not know where he is, believes that the month is June, and does not know the president of [facility]. Folstein/MMSE had a score of 17/30 today suggestive of moderate cognitive impairment. There were deficits in orientation, attention and calculation, he was able to recall 2 out of 3 objects and identify a panic clock. He was unable to repeat a phrase. He was able to follow 2 stages of a 3 stage command, and to read and obey, as well as write a sentence. He was unable to copy a design, or draw clock. The patient reports that he does not sleep well, and has been getting up 4-5 times per night. He is mildly hard of hearing, may misinterpret some questions, requiring a repeat or a re-phrase. He denies any auditory visual or tactile hallucinations, and presents no suyapa delusions. [facility], and that his is there. He reports that his appetite is poor, and does not feel like eating today. He denies feelings of depression, anxiety, hopelessness, helplessness and worthlessness. He denies suicidal or homicidal ideation. Lab Results: 06/08/2016: WBC 6.5, BUN 38/creatinine 1.3, GFR 52. TSH, vitamin D, vitamin B12 within normal limits. Urinalysis on 06/03/2016, was negative for signs of UTI. 06/01/2016: RPR titer was nonreactive. Lyme disease antibody 0.07, or negative. SERVICE DATE: 05/30/16 EXAM TYPE: CAT - CT CERV SPINE WO IV CONTRAST; CT HEAD WO IV CONTRAST EXAMINATION: CT HEAD W/O IV CONTRAST CT CERVICAL SPINE W/O IV CONTRAST CLINICAL INFORMATION: 85-year-old male with neck pain after fall. Possible intracranial bleed. COMPARISON: CT of the head from 01/05/2016. TECHNIQUE: Head - Contiguous axial imaging of the head was performed from the skull base to the vertex without the administration of intravenous contrast, and axial images reconstructed at 0.625 mm , 2.5 mm and 5 mm slice thickness. Cervical spine - Volumetric, helical CT acquisition of the cervical spine was obtained without contrast; in addition to the standard set of axial images, multiplanar reformatted images were provided in the coronal and sagittal imaging planes. DLP: 948 mGy-cm (total) FINDINGS: HEAD: There is an area of chronic encephalomalacia located high within the right cerebral hemisphere at the level of the postcentral gyrus. No signs of an acute major vascular territory infarction, hemorrhage, extra-axial fluid collection, focal mass effect or midline shift. There is atherosclerotic calcification of the cavernous carotid and vertebral arteries. There is an old, small lacunar infarction of the left caudate head. Mild atrophy of cerebral and cerebellar hemispheres associated with symmetric prominence of the ventricles and sulci. The calvarium is intact and the visualized paranasal sinuses, mastoid air cells and middle ear cavities are clear. There have been ocular lens extractions. CERVICAL SPINE: The occipital condyles, atlas, axis and atlantoaxial articulation are intact. No acute fractures within anterior or posterior elements of the degenerated cervical spine. Chondrocalcinosis of intervertebral discs and of the transverse ligament located posterior to the dens. Multilevel degenerative disc space narrowing and osteophyte formation, with degenerative disc disease pronounced at C5-C6 and C6-C7. There is lack of lordotic curvature of the degenerated spine. There is multilevel, predominantly left-sided facet osteoarthritis. At C3-C4, the facet osteoarthritis and mild disc degeneration are associated with 2-3 mm anterolisthesis of C3 on C4. Also, there is minimal degenerative anterolisthesis of C4 on C5. The uncovertebral joint hypertrophy of C5-C6 and C6-C7 results in severe bilateral neural foraminal stenosis at these levels. No prevertebral soft tissue edema or paraspinal hematoma. Thyroid gland is unremarkable. No pathologic sized lymph nodes within the examined neck. No acute findings within the lung apices. IMPRESSION: 1. No acute intracranial pathology compared to 01/05/2016 2. No acute fractures within the degenerated cervical spine. 3. [id number] degenerative disc disease and uncovertebral joint hypertrophy of C5-C6 and C6-C7. There is severe bilateral neural foraminal stenosis at these levels. Diffential Diagnosis: Delirium related to toxic or metabolic cause Rule out Dementia NOS Impression: I will try to contact the patient's family, specifically his daughter, Christina, to try and learn more about his recent change in mental status. As Leno Dill MD has noted, some of the delirium may be secondary to opiate pain medications, which she is not currently taking. A portion of this may be postanesthesia delirium. Portions of reversible dementia screen were initiated last week; the patient does not apparently have an infective process, TSH/vitamin D/vitamin B12 are within normal limits, RPR and Lyme titers were negative. We do not routinely recommend antipsychotic medications, such as quetiapine/ Seroquel, particularly in the elderly, as they carry with them an increased risk of sudden , due to fatal arrhythmia. The most recent EKG on 06/09/2016 1100 showed atrial fibrillation, 63 BPM, QTC 476 ms. We do not endorse the use of QTc prolonging medications, in the setting of arrhythmia or QTC greater than 475 ms. I had a return call from the patient's daughter, Christina, who reports that prior to admission, the patient, with whom she her and the patient's spouse live, exhibited no signs of confusion. He had recently been asking for help in managing his bills, and his spouse's medications, but had been driving, and otherwise functioning independently. She is the patient's POA, per her report. Christina reports that the patient has a history of a CVA approximately 10 years ago, but had retained no deficits, physical or mental. She reports that the patient and his , had been living in [place], in moved back to [place] in April, at which time she noticed a general weakness in his left hand, noting a curling of that hand and shoulder drop. She confirms the report that she wanted Rozerem for insomnia discontinued, which she felt was causing hallucinations. We spent some time discussing the recent hospital course, and possible causes of the patient's delirium. I assured her that are normal approach to reversible delirium is conservative, relying on the least intrusive nursing interventions, and medication as a last resort. We discussed the possibility of the use of a [place] vest with, or without, soft wrist restraints. We discussed the possibility of using antipsychotic such as quetiapine, but only for severe agitation, such as the patient exhibited today when he tried to strike staff. Christina is in agreement that the patient and staff need to be safe. We reviewed the risks and benefits of quetiapine/Seroquel, including the black box warning of the risk of sudden in the elderly. I assured her that this normally helps to resolve hallucinations. Based on conversation with the patient's daughter and power of correctional facility nurse, Christina, we would normally expect that the patient's mental status would clear. However, an evaluation by yard manager may be helpful. Provisional Treatment Plan: 1. I have left a voicemail message with the patient's daughter, Christina Dominguez, , and I'm expecting a return telephone call, which may provide information on the patient's recent mental status before hospitalization. I have received a return call from the daughter; please see the note above. 2. Please avoid delirium triggers, such as benzodiazepines, opiate pain medications, medications with strong anticholinergic properties, constipation, or unnecessary nighttime awakenings. Please cluster nursing interventions, so the patient may have as much uninterrupted sleep as possible. 3. For agitation, please consider redirection, followed by a [place] vest or soft wrist restraints, if you do not feel that these soft restraints will make the patient more agitated. 4. I have contacted pharmacy to request an evaluation of the patient's medication regimen, specifically seeking causes for QTC prolongation. Please review this with pharmacy. 5. If violent or severe agitation, please consider quetiapine/Seroquel 12.5 mg PO up to 3 times per day as needed. a. EKG must show no arrhythmia, and QTC less than or equal to 475 ms. If this medication is indicated, and EKG does not meet these properties, please ask cardiology or Leno Dill MD to comment on the use of this medication. b. Hold this medication if oversedated. c. Monitor and replete electrolytes, in particular magnesium and potassium to the upper portion of the normal range. Hypomagnesemia is associated with TdP. 6. Please consider referral for a geriatric consult at the receiving facility. The patient should have psychiatric evaluation at the receiving facility at a minimum, unless his mental status has cleared. Thank you for asking us to participate in Esperanza's care. We will continue to follow. Micah Hopkins APRN, pager [phone].
[2016-06-09 16:20] VITALS: BP 100/66
[2016-06-09 23:41] VITALS: BP 100/68
--- NOTE | 2016-06-10 07:34 | PN- Housestaff ---
Subjective Follow-up For: R hip fracture s/p ORIF Subjective: Seen and examined this morning. He was surrounded by nursing or trying to get his surgical site dressing change. He was as agitated, and was using abusive language. vitals wnl. Review of Systems Constitutional: Reports: see HPI. Objective Last 24 Hrs of Vital Signs/I&O Vital Signs Date Time Temp Pulse Resp B/P Pulse O2 O2 Flow FiO2 Ox Delivery Rate 06/10 1645 60 136/84 06/10 1636 97.8 58 19 136/84 93 Room Air 06/10 1357 Room Air 2.0L 06/10 1113 98.6 61 17 140/80 93 Room Air 06/10 1008 62 100/60 06/09 2341 97.4 61 20 100/68 93 Room Air Intake & Output 06/10 1600 06/10 0800 06/10 0000 Intake Total 1380 500 Output Total 300 225 300 Balance 1080 -225 200 Intake, IV 0 Intake, Oral 1380 500 Number 0 Bowel Movements Output, Urine 300 225 300 Physical Exam General Appearance: Alert, No Acute Distress Cardiovascular: Regular Rate, Normal S1, Normal S2 Lungs: Clear to Auscultation, Normal Air Movement Abdomen: Normal Bowel Sounds, Soft, No Tenderness Extremities: No Clubbing, No Cyanosis, No Edema Current Medications: Current Medications Sig/Chirag Start time Last Medication Dose Route Stop Time Status Admin Acetaminophen 650 MG Q6P PRN 05/30 1600 AC 06/07 PO 0903 Acetaminophen 1,000 MG Q6P PRN 05/30 1600 AC 06/01 IV 0032 Atorvastatin Calcium 40 MG 1700 05/30 1700 AC 06/10 PO 1645 Carvedilol 12.5 MG BID 05/30 220 AC 06/08 PO 2226 Furosemide 20 MG DAILY 05/31 1000 AC 06/10 PO 1001 Haloperidol 1 MG ONCE ONE 06/09 2130 DC 06/10 IM 06/09 2131 022 Haloperidol 0.4 MG ONCE ONE 06/09 2100 DC 06/09 IM 06/09 2101 211 Polyethylene Glycol 17 GM DAILY 06/05 1000 AC 06/10 PO 1001 Quetiapine Fumarate 12.5 MG TID 06/10 1220 AC 06/10 PO 1645 Quetiapine Fumarate 12.5 MG ONCE ONE 06/09 2200 DC PO 06/09 2201 Senna/Docusate Sodium 1 TAB BID 06/04 2200 AC 06/10 PO 1001 Tamsulosin HCl 0.4 MG 1700 06/05 1700 AC 06/10 PO 1645 Warfarin Sodium 2.5 MG COUMADIN 1700 ONE 06/10 1700 DC PO 06/10 1701 Assessment/Plan Assessment: This is a 85-year-old male with past medical history of CAD status post [place], TIA, hypertension, congestive heart failure, hyperlipidemia, AAA status post surgery and stent placement, questionable lung nodule, presents with chief complaint of mechanical fall. Vitals creatinine 1.4, hemoglobin 11.9, platelets 152, white count 7.4 EKG does not show any acute findings. We'll admit the patient to general med floor and monitor for the following: Delirium: Patient has been combative and delirious, continues to be confused, due to prolonged QTc we have not been able to give him Haldol or Seroquel on regular basis. Will get EKG daily along with lites monitoring. Attending physician a discussion with the daughter, daughter remains fully aware of the adverse effects of Seroquel and that it will only provide symptomatically relief . She still wants her dad to be on Seroquel overdose for which have already been placed. We'll also get neurology input on his current confusion and delirium and combative behavior. Etiology unclear, reversible dementia w/u -, no infectious cause, he has been afebrile, white count stable. All benzodiazepines and all narcotics discontinued. Ceftriaxone discontinued as UCx (06/03) NGTD. Reorient patient frequently.Supervise patient while eating. Will maintain Fall precautions. Urinary retention: Patient has history of urethral stricture and urinary retention and BPH.he was retaining more than 400 amounts of urine and was initially started on straight Protocol followed by Granado catheter. Urinary retention was thought to be secondary to anesthesia for ORIF. Urology was consulted, patient on Flomax,Granado catheter removed, patient had successful voiding trials, urine output adequate. Remains on straight cath protocol if needed. Hip fracture status post ORIF: MRI hip showed acute fracture of the right greater trochanter with partial intertrochanteric extension anticomplement of the fracture extending longitudinally through The collarbone into the proximal femoral diaphysis. He is status post RF patient tolerating regular diet well, PT has recommended discharge to short-term rehabilitation. Plavix on hold, patient started on Coumadin we'll continue on Coumadin for 6 weeks and then will restart Plavix as per ortho, History of AZ/HTN/HLD: Will continue Lasix 20 mg daily, Lipitor 40 mg daily, carvedilol 12.5 mg twice a day Spironolactone(TO BE CONTINUED UPON DISCHARGE) and isosorbide on hold Pain management with Tylenol. Regular diet DVT prophylaxis with Coumadin Patient is DNR/DNI Problem List: 1. Fracture of greater trochanter of right femur 2. Delirium Pain Ratin Pain Location: Right hip Pain Goal: Remain pain free Pain Plan: See assessment and plan Tomorrow's Labs & Rationales: CBC for H&H monitoring BEP for lice monitoring INR for Coumadin dosing
[2016-06-10 08:09] LABS: ABSOLUTE BASOPHIL COUNT 0 /CUMM (0.0-0.2); ABSOLUTE EOSINOPHIL COUNT 0.5 /CUMM (0.0-0.7); ABSOLUTE GRANULOCYTE CT 4.8 /CUMM (1.4-6.5); ABSOLUTE LYMPH COUNT 1.2 /CUMM (1.2-3.4); ABSOLUTE MONOCYTE COUNT 0.7 /CUMM (0.10-0.60); BASOPHIL % 0.6 % (0.0-2.0); EOSINOPHIL % 7.4 % (0-5); GRANULOCYTE % 65.7 % (42.2-75.2); HEMATOCRIT 31.2 % (42-52); MEAN CORPUSCULAR HGB 33.6 PG (27.0-31.0); MEAN CORPUSCULAR HGB CONC 33.6 G/DL (33.0-37.0); MEAN CORPUSCULAR VOLUME 100.2 FL (80.0-94.0); MEAN PLATELET VOLUME 8.2 FL (7.4-10.4); PLATELET COUNT 207 /CUMM (130-400); RBC DISTRIBUTION WIDTH 14.2 % (11.5-14.5); RED BLOOD CELL CT 3.11 /CUMM (4.70-6.10); WHITE BLOOD CELL COUNT 7.3 /CUMM (4.8-10.8)
[2016-06-10 11:13] VITALS: BP 140/80
--- NOTE | 2016-06-10 11:26 | PN- Pulmonary ---
See Addendum Subjective HPI/Critical Care Issues: Improving this am Confusion persists with agitation noted this am by nursing staff and sales warehouse driver Pt comfortable Objective Current Medications: Current Medications Sig/Chirag Start time Last Medication Dose Route Stop Time Status Admin Acetaminophen 650 MG Q6P PRN 05/30 1600 AC 06/07 PO 0903 Acetaminophen 1,000 MG Q6P PRN 05/30 1600 AC 06/01 IV 0032 Atorvastatin Calcium 40 MG 1700 05/30 1700 AC 06/09 PO 1645 Carvedilol 12.5 MG BID 05/30 2200 AC 06/08 PO 2226 Furosemide 20 MG DAILY 05/31 1000 AC 06/10 PO 1001 Haloperidol 1 MG ONCE ONE 06/090 DC 06/10 IM 06/09 2131 0227 Haloperidol 0.4 MG ONCE ONE 06/09 2100 DC 06/09 IM 06/091 2112 Polyethylene Glycol 17 GM DAILY 06/05 1000 AC 06/10 PO 1001 Quetiapine Fumarate 12.5 MG ONCE ONE 06/09 2200 CAN PO 06/09 2201 Quetiapine Fumarate 12.5 MG ONCE ONE 06/09 2200 DC PO 06/09 2201 Senna/Docusate Sodium 1 TAB BID 06/04 2200 AC 06/10 PO 1001 Tamsulosin HCl 0.4 MG 1700 06/05 1700 AC 06/09 PO 1645 Warfarin Sodium 2.5 MG COUMADIN 1700 ONE 06/09 1700 DC 06/09 PO 06/09 1701 1645 Vital Signs & I&O Last 24 Hrs of Vitals and I&O: Vital Signs Date Time Temp Pulse Resp B/P Pulse O2 O2 Flow FiO2 Ox Delivery Rate 06/10 1113 98.6 61 17 140/80 93 Room Air 06/10 1008 62 100/60 06/09 2341 97.4 61 20 100/68 93 Room Air 06/09 1620 97.5 62 20 100/66 93 Intake & Output 06/10 1600 06/10 0800 06/10 0000 Intake Total 500 Output Total 225 300 Balance -225 200 Intake, Oral 500 Output, Urine 225 300 Laboratory Tests 06/10 06/09 0705 0600 Chemistry Sodium (137 - 145 mmol/L) 136 L Cancelled Potassium (3.5 - 5.1 mmol/L) 4.4 Cancelled Chloride (98 - 107 mmol/L) 99 Cancelled Carbon Dioxide (22 - 30 mmol/L) 28 Cancelled Anion Gap (5 - 16) 9 Cancelled BUN (9 - 20 mg/dL) 49 H Cancelled Creatinine (0.7 - 1.2 mg/dL) 1.3 H Cancelled Estimated GFR (>60 ml/min) 52 L BUN/Creatinine Ratio (7 - 25 %) 37.7 H Cancelled Magnesium (1.6 - 2.3 mg/dL) 2.3 Cancelled Coagulation PT (9.4 - 12.5 SEC) 20.0 H Cancelled INR (0.90 - 1.17) 1.92 H Cancelled Hematology CBC w Diff NO MAN DIFF REQ Cancelled WBC (4.8 - 10.8 /CUMM) 7.3 Cancelled RBC (4.70 - 6.10 /CUMM) 3.11 L Cancelled Hgb (14.0 - 18.0 G/DL) 10.5 L Cancelled Hct (42 - 52 %) 31.2 L Cancelled MCV (80.0 - 94.0 FL) 100.2 H Cancelled MCH (27.0 - 31.0 PG) 33.6 H Cancelled RDW (11.5 - 14.5 %) 14.2 Cancelled Plt Count (130 - 400 /CUMM) 207 Cancelled MPV (7.4 - 10.4 FL) 8.2 Cancelled Gran % (42.2 - 75.2 %) 65.7 Lymphocytes % (20.5 - 51.1 %) 17.0 L Monocytes % (1.7 - 9.3 %) 9.3 Eosinophils % (0 - 5 %) 7.4 H Basophils % (0.0 - 2.0 %) 0.6 Absolute Granulocytes (1.4 - 6.5 /CUMM) 4.8 Absolute Lymphocytes (1.2 - 3.4 /CUMM) 1.2 Absolute Monocytes (0.10 - 0.60 /CUMM) 0.7 H Absolute Eosinophils (0.0 - 0.7 /CUMM) 0.5 Absolute Basophils (0.0 - 0.2 /CUMM) 0 PUBS MCHC (33.0 - 37.0 G/DL) 33.6 Cancelled Impression/Plan Impression/Plan Impression/Plan: General: Alert and oriented, no acute distress, but has sig sundowing with confusion Cardiac: RRR, s1s2 Pulmonary: Bilateral lung sounds clear to auscutation Abdomen: Non-tender, non-distended Extremities: Moves all extremities, distal sensate intact. SKin warm and well perfused. Calves soft and non-tender, dp pulses palpable bilaterally. Surgical site: Stable IMPRESSION This is a gentleman with chronic kidney disease, previous ischemic heart disease with previous CA, hyperlipidemia, peripheral vascular disease, previous AAA repair, who is on clopidogrel for antiplatelet therapy for peripheral vascular disease, hypertension hyperlipidemia now here with a hip fracture s/p surg on His issues include REsolving Sig delirium due to previous narcotics, and multiple other factors, now with still sig delirium in am with ing. 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 IF not better by am he should be considered for that. IF stable can be dcd liz was made aware of his current condition and she is aware of the risks and benefit of dc NO further narcotics Reorientation therapy No benzo Prn tylenol for pain Give 2.5 mg of warfarin today and check INR tomorrow Daily labs, keep mg more than 2 Continue his anti-hypertensive and the cholesterol lowering drugs Aggressive bowel regimen Patient may go to a rehabilitation facility tomorrow Psych on board and they have discussed with the family aswell We will follow closely patient is DNR/DNI
[2016-06-10 16:36] VITALS: BP 136/84
[2016-06-10 23:00] VITALS: BP 138/68
[2016-06-11 08:16] VITALS: BP 112/64
--- NOTE | 2016-06-11 08:28 | PN- Housestaff ---
CELESTE VASQUEZ,[facility] 06/11/16 0828: Subjective Follow-up For: R hip fracture s/p ORIF Subjective: patient seen and examined this morning. He was lying in bed in no acute distress, overnight he has been very drowsy secondary to Seroquel, vitals remained within normal range. Review of Systems Constitutional: Reports: see HPI. Objective Last 24 Hrs of Vital Signs/I&O Vital Signs Date Time Temp Pulse Resp B/P Pulse O2 O2 Flow FiO2 Ox Delivery Rate 06/11 1008 64 116/68 06/11 0816 98.1 59 20 112/64 93 Room Air 06/10 2300 97.4 58 19 138/68 06/10 2227 138/68 06/10 1645 60 136/84 06/10 1636 97.8 58 19 136/84 93 Room Air 06/10 1357 Room Air 2.0L Intake & Output 06/11 1600 06/11 0800 06/11 0000 Intake Total 50 Output Total 100 Balance -50 Intake, Oral 50 Output, Urine 100 Physical Exam General Appearance: drowsy Cardiovascular: Regular Rate, Normal S1, Normal S2 Lungs: Clear to Auscultation, Normal Air Movement Abdomen: Normal Bowel Sounds, Soft, No Tenderness Extremities: No Clubbing, No Cyanosis, No Edema Current Medications: Current Medications Sig/Chirag Start time Last Medication Dose Route Stop Time Status Admin Acetaminophen 650 MG Q6P PRN 05/30 1600 AC 06/11 PO 1009 Acetaminophen 1,000 MG Q6P PRN 05/30 1600 AC 06/01 IV 0032 Atorvastatin Calcium 40 MG 1700 05/30 1700 AC 06/10 PO 1645 Carvedilol 12.5 MG BID 05/30 2200 AC 06/11 PO 1008 Furosemide 20 MG DAILY 05/31 1000 AC 06/11 PO 1008 Polyethylene Glycol 17 GM DAILY 06/05 1000 AC 06/11 PO 1008 Quetiapine Fumarate 12.5 MG TID 06/10 1220 AC 06/10 PO 1645 Senna/Docusate Sodium 1 TAB BID 06/04 2200 AC 06/11 PO 1008 Tamsulosin HCl 0.4 MG 1700 06/05 1700 AC 06/10 PO 1645 Warfarin Sodium 2.5 MG COUMADIN 1700 ONE 06/11 1700 UNVr PO 06/11 1701 Warfarin Sodium 2.5 MG COUMADIN 1700 ONE 06/10 1700 DC PO 06/10 1701 Last 24 Hrs of Lab/Wilner Results Last 24 Hrs of Labs/Mics: Laboratory Tests 06/11/16 0720: Anion Gap 7, Estimated GFR 48 L, BUN/Creatinine Ratio 32.1 H, Magnesium 2.4 H , PT 20.2 H, INR 1.94 H, CBC w Diff NO MAN DIFF REQ, RBC 2.91 L, MCV 100.3 H , MCH 33.9 H, RDW 14.3, MPV 8.1, Gran % 61.1, Lymphocytes % 21.4, Monocytes % 9.1, Eosinophils % 7.9 H, Basophils % 0.5, Absolute Granulocytes 3.8, Absolute Lymphocytes 1.3, Absolute Monocytes 0.6, Absolute Eosinophils 0.5, Absolute Basophils 0, PUBS MCHC 33.8 Assessment/Plan Assessment: This is a 85-year-old male with past medical history of CAD status post NC, TIA, hypertension, congestive heart failure, hyperlipidemia, AAA status post surgery and stent placement, questionable lung nodule, presents with chief complaint of mechanical fall. Vitals creatinine 1.4, hemoglobin 11.9, platelets 152, white count 7.4 EKG does not show any acute findings. We'll admit the patient to general med floor and monitor for the following: Delirium: Patient has been combative and delirious, continues to be confused, due to prolonged QTc we have not been able to give him Haldol or Seroquel on regular basis. Will get EKG daily along with lites monitoring. Attending physician a discussion with the daughter, daughter remains fully aware of the adverse effects of Seroquel and that it will only provide symptomatically relief . She still wants her dad to be on Seroquel overdose for which have already been placed. We'll also get neurology input on his current confusion and delirium and combative behavior. Etiology unclear, reversible dementia w/u -, no infectious cause, he has been afebrile, white count stable. All benzodiazepines and all narcotics discontinued. Ceftriaxone discontinued as UCx (06/03) NGTD. Reorient patient frequently.Supervise patient while eating. Will maintain Fall precautions. Urinary retention: Patient has history of urethral stricture and urinary retention and BPH.he was retaining more than 400 amounts of urine and was initially started on straight Protocol followed by Granado catheter. Urinary retention was thought to be secondary to anesthesia for ORIF. Urology was consulted, patient on Flomax,Granado catheter removed, patient had successful voiding trials, urine output adequate. Remains on straight cath protocol if needed. Hip fracture status post ORIF: MRI hip showed acute fracture of the right greater trochanter with partial intertrochanteric extension anticomplement of the fracture extending longitudinally through The collarbone into the proximal femoral diaphysis. He is status post RF patient tolerating regular diet well, PT has recommended discharge to short-term rehabilitation. Plavix on hold, patient started on Coumadin we'll continue on Coumadin for 6 weeks and then will restart Plavix as per ortho, History of NC/HTN/HLD: Will continue Lasix 20 mg daily, Lipitor 40 mg daily, carvedilol 12.5 mg twice a day Spironolactone(TO BE CONTINUED UPON DISCHARGE) and isosorbide on hold Pain management with Tylenol. Regular diet DVT prophylaxis with Coumadin Patient is DNR/DNI Problem List: 1. Closed right hip fracture 2. Status post hip surgery 3. Delirium Pain Ratin Pain Location: right hip Pain Goal: Remain pain free Pain Plan: a/p Tomorrow's Labs & Rationales: INR for Coumadin dosing ALLYSON SHAIKH MD 06/11/16 1626: Attending MD Review Statement Attending Statement Attending MD Statement: examined this patient, agreed w/resident/PA/SURGEON PARTNER, reviewed EMR data (avail), discussed with nursing, amended to note Attending Assessment/Plan: Mr. Cross is per nursing more appropriate today. He is however extremely drowsy. Absolutely his cerebral doses have been held. He does state that he has been having hallucinations and does not want them to return. We should continue with our present medication regimen. We should continue to hold Seroquel given the patient's drowsiness however if it is needed I would reduce the dose to 6.25 mg.
[2016-06-11 08:44] LABS: ABSOLUTE BASOPHIL COUNT 0 /CUMM (0.0-0.2); ABSOLUTE EOSINOPHIL COUNT 0.5 /CUMM (0.0-0.7); ABSOLUTE GRANULOCYTE CT 3.8 /CUMM (1.4-6.5); ABSOLUTE LYMPH COUNT 1.3 /CUMM (1.2-3.4); ABSOLUTE MONOCYTE COUNT 0.6 /CUMM (0.10-0.60); BASOPHIL % 0.5 % (0.0-2.0); EOSINOPHIL % 7.9 % (0-5); GRANULOCYTE % 61.1 % (42.2-75.2); HEMATOCRIT 29.2 % (42-52); MEAN CORPUSCULAR HGB 33.9 PG (27.0-31.0); MEAN CORPUSCULAR HGB CONC 33.8 G/DL (33.0-37.0); MEAN CORPUSCULAR VOLUME 100.3 FL (80.0-94.0); MEAN PLATELET VOLUME 8.1 FL (7.4-10.4); PLATELET COUNT 204 /CUMM (130-400); RBC DISTRIBUTION WIDTH 14.3 % (11.5-14.5); RED BLOOD CELL CT 2.91 /CUMM (4.70-6.10); WHITE BLOOD CELL COUNT 6.2 /CUMM (4.8-10.8)
[2016-06-11 08:48] LABS: PT 20.2 SEC (9.4-12.5)
[2016-06-11 17:13] VITALS: BP 102/52
--- NOTE | 2016-06-11 18:50 | Cons- Neurology ---
General Information and HPI Consulting Request Date of Consult: 06/11/16 Requested By: MARSHA VASQUEZ,NAY Egan Reason for Consult: Altered mental status Source of Information: EMR, Dr Mustafa, RN Exam Limitations: unable to give history, lethargic History of Present Illness: 86 -year-old man who was admitted back on May 30 after a fall in which he sustained a right hip fracture, for which she underwent ORIF Postoperative course has been notable for confusion and agitation, which was first documented on 06-02. He has had hallucinations, has been combative, and has used profane language. Prior to 06-02, he was described as being alert and oriented.. He has been receiving Seroquel. He has been seen by the psychiatric FIELD EDUCATION COORDINATOR Geriatrics consult is pending Allergies/Medications Allergies: Coded Allergies: acetaminophen (From PERCOCET) (HALLUCINATIONS 05/30/16) oxycodone (From PERCOCET) (HALLUCINATIONS 05/30/16) Home Med List: Atorvastatin Calcium 40 MG TABLET 1 TAB PO DAILY CHOLESTEROL (Reported) Carvedilol 12.5 MG TABLET 1 TAB PO BID HEART (Reported) Cholecalciferol (Vitamin D3) (Unknown Strength) TABLET (Unknown Dose) PO BID SUPPLEMENT (Reported) Clopidogrel Bisulfate (Clopidogrel) 75 MG TABLET 1 TAB PO DAILY BLOOD THINNER (Reported) Cyanocobalamin (Vitamin B-12) 1,000 MCG TABLET 1 TAB PO DAILY SUPPLEMENT ( Reported) Furosemide 20 MG TABLET 1 TAB PO DAILY WATER PILL (Reported) Isosorbide Mononitrate (Isosorbide Mononitrate ER) 30 MG TAB.ER.24H 1 TAB PO DAILY HEART (Reported) Spironolactone 25 MG TABLET 1 TAB PO DAILY HEART (Reported) Warfarin Sodium (Coumadin) 2.5 MG TABLET 1 TAB PO DAILY post hip surgery anticoagulati Current Medications: Current Medications Sig/Chirag Start time Last Medication Dose Route Stop Time Status Admin Acetaminophen 650 MG .STK-MED ONE 06/11 1007 DC PO 06/11 1008 Acetaminophen 650 MG Q6P PRN 05/30 1600 AC 06/11 PO 1009 Acetaminophen 1,000 MG Q6P PRN 05/30 1600 AC 06/01 IV 0032 Atorvastatin Calcium 40 MG 1700 05/30 1700 AC 06/11 PO 1627 Bisacodyl 10 MG ONCE ONE 06/11 1345 DC 06/11 ND 06/11 1346 1444 Carvedilol 12.5 MG BID 05/30 2200 AC 06/11 PO 1008 Furosemide 20 MG DAILY 05/31 1000 AC 06/11 PO 1008 Polyethylene Glycol 17 GM DAILY 06/05 1000 AC 06/11 PO 1008 Quetiapine Fumarate 12.5 MG TID 06/10 1220 AC 06/10 PO 1645 Senna/Docusate Sodium 1 TAB BID 06/04 2200 AC 06/11 PO 1008 Tamsulosin HCl 0.4 MG 1700 06/05 1700 AC 06/11 PO 1628 Warfarin Sodium 2.5 MG COUMADIN 1700 ONE 06/11 1700 DC 06/11 PO 06/11 1701 1628 Review of Systems Review of Systems: Unobtainable from the patient Past History Travel History Traveled to [place] past 21 day No Medical History Blood Transfusion Hx: No Neurological: CVA EENT: NONE Cardiovascular: hypertension, hyperlipidemia, myocardial infarction, peripheral vascular disease Respiratory: pulmonary nodule? 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 Home Who Do You Live With? spouse Services at Home: None Primary Language: Czech Smoking Status: Former Smoker ETOH Use: occasional use Illicit Drug Use: denies illicit drug use Functional Ability ADLs Independent: dressing, eating, toileting, bathing. Ambulation: independent IADLs Independent: shopping, housework, finances, food prep, telephone, transportation , medication admin. Exam & Diagnostic Data Vital Signs and I&O Vital Signs Date Time Temp Pulse Resp B/P Pulse O2 O2 Flow FiO2 Ox Delivery Rate 06/11 1713 98.0 63 20 102/52 93 Room Air 06/11 1628 66 104/68 06/11 1008 64 116/68 06/11 0816 98.1 59 20 112/64 93 Room Air 06/10 2300 97.4 58 19 138/68 06/10 2227 138/68 Intake & Output 06/11 1600 06/11 0800 06/11 0000 Intake Total 600 50 Output Total 100 100 Balance 500 -50 Intake, Oral 600 50 Number 0 Bowel Movements Output, Urine 100 100 Physical Exam: Somnolent, briefly arousable, minimally cooperative with exam, mildly agitated No obvious disfluency of speech but generally uncooperative with cognitive testing, claims not to know where he is, the year month or day ( states "who cares"), claims not to know that he is in the hospital nor the reason he is here Able to identify his nephew in a photograph Generally dismissive of this examiner, stating that the questions asked of him are "stupid" On cranial nerve exam, extraocular movements are full, he is not cooperative for funduscopic exam, pupils are equal round and reactive to light, there is no obvious visual field loss, facial movements are symmetric, the tongue is midline , hearing is grossly intact, shoulder shrug is grossly symmetric. There is no apparent focal weakness in the upper extremities nor the feet or ankles Norder the left lower extremity. Detailed manual muscle testing of the right hip and knee deferred given recent hip surgery No gross sensory loss No gross incoordination Gait currently untestable Last 48 Hours of Lab Results: Laboratory Tests 06/11 06/10 0720 0705 Chemistry Sodium (137 - 145 mmol/L) 138 136 L Potassium (3.5 - 5.1 mmol/L) 4.3 4.4 Chloride (98 - 107 mmol/L) 101 99 Carbon Dioxide (22 - 30 mmol/L) 30 28 Anion Gap (5 - 16) 7 9 BUN (9 - 20 mg/dL) 45 H 49 H Creatinine (0.7 - 1.2 mg/dL) 1.4 H 1.3 H Estimated GFR (>60 ml/min) 48 L 52 L BUN/Creatinine Ratio (7 - 25 %) 32.1 H 37.7 H Magnesium (1.6 - 2.3 mg/dL) 2.4 H 2.3 Coagulation PT (9.4 - 12.5 SEC) 20.2 H 20.0 H INR (0.90 - 1.17) 1.94 H 1.92 H Hematology CBC w Diff NO MAN DIFF REQ NO MAN DIFF REQ WBC (4.8 - 10.8 /CUMM) 6.2 7.3 RBC (4.70 - 6.10 /CUMM) 2.91 L 3.11 L Hgb (14.0 - 18.0 G/DL) 9.9 L 10.5 L Hct (42 - 52 %) 29.2 L 31.2 L MCV (80.0 - 94.0 FL) 100.3 H 100.2 H MCH (27.0 - 31.0 PG) 33.9 H 33.6 H RDW (11.5 - 14.5 %) 14.3 14.2 Plt Count (130 - 400 /CUMM) 204 207 MPV (7.4 - 10.4 FL) 8.1 8.2 Gran % (42.2 - 75.2 %) 61.1 65.7 Lymphocytes % (20.5 - 51.1 %) 21.4 17.0 L Monocytes % (1.7 - 9.3 %) 9.1 9.3 Eosinophils % (0 - 5 %) 7.9 H 7.4 H Basophils % (0.0 - 2.0 %) 0.5 0.6 Absolute Granulocytes (1.4 - 6.5 /CUMM) 3.8 4.8 Absolute Lymphocytes (1.2 - 3.4 /CUMM) 1.3 1.2 Absolute Monocytes (0.10 - 0.60 /CUMM) 0.6 0.7 H Absolute Eosinophils (0.0 - 0.7 /CUMM) 0.5 0.5 Absolute Basophils (0.0 - 0.2 /CUMM) 0 0 PUBS MCHC (33.0 - 37.0 G/DL) 33.8 33.6 B12 9 131 TSH 0.5 Imaging/Other Studies: HEAD: There is an area of chronic encephalomalacia located high within the right cerebral hemisphere at the level of the postcentral gyrus. No signs of an acute major vascular territory infarction, hemorrhage, extra-axial fluid collection, focal mass effect or midline shift. There is atherosclerotic calcification of the cavernous carotid and vertebral arteries. There is an old, small lacunar infarction of the left caudate head. Mild atrophy of cerebral and cerebellar hemispheres associated with symmetric prominence of the ventricles and sulci. The calvarium is intact and the visualized paranasal sinuses, mastoid air cells and middle ear cavities are clear. There have been ocular lens extractions. CERVICAL SPINE: The occipital condyles, atlas, axis and atlantoaxial articulation are intact. No acute fractures within anterior or posterior elements of the degenerated cervical spine. Chondrocalcinosis of intervertebral discs and of the transverse ligament located posterior to the dens. Multilevel degenerative disc space narrowing and osteophyte formation, with degenerative disc disease pronounced at C5-C6 and C6-C7. There is lack of lordotic curvature of the degenerated spine. There is multilevel, predominantly left-sided facet osteoarthritis. At C3-C4, the facet osteoarthritis and mild disc degeneration are associated with 2-3 mm anterolisthesis of C3 on C4. Also, there is minimal degenerative anterolisthesis of C4 on C5. The uncovertebral joint hypertrophy of C5-C6 and C6-C7 results in severe bilateral neural foraminal stenosis at these levels. No prevertebral soft tissue edema or paraspinal hematoma. Thyroid gland is unremarkable. No pathologic sized lymph nodes within the examined neck. No acute findings within the lung apices. IMPRESSION: 1. No acute intracranial pathology compared to 01/05/2016 2. No acute fractures within the degenerated cervical spine. 3. [id number] degenerative disc disease and uncovertebral joint hypertrophy of C5-C6 and C6-C7. There is severe bilateral neural foraminal stenosis at these levels. . DICTATED BY: ANGEL SERNA MD DATE/TIME DICTATED:05/30/161240 Assessment/Plan Assessment: Encephalopathy presumably multifactorial in the setting of recent hip surgery, narcotic analgesic medications, presumably altered sleep-wake cycle in the hospital setting. He has an elevated MCV and alcohol history is uncertain in the chart, therefore alcohol withdrawal may be another consideration. Thus far, benzodiazepine medication has been avoided by the treating team, but is ethanol withdrawal is at play, this medication may prove to be therapeutically beneficial short-term. Ensure as regular a sleep wake cycle as possible in the hospital setting. Recommendations: Attempt to obtain additional history regarding at home alcohol use if any. Should there be any suspicion of ethanol withdrawal, would favor the use of low- dose benzodiazepine Agree with geriatrics consultation No focal findings suggestive of new stroke Consult Acknowledgment - Thank you for your consult request.
[2016-06-11 23:40] VITALS: BP 106/55
[2016-06-12 08:16] LABS: ABSOLUTE BASOPHIL COUNT 0 /CUMM (0.0-0.2); ABSOLUTE EOSINOPHIL COUNT 0.6 /CUMM (0.0-0.7); ABSOLUTE LYMPH COUNT 1.4 /CUMM (1.2-3.4); ABSOLUTE MONOCYTE COUNT 0.5 /CUMM (0.10-0.60); BASOPHIL % 0.4 % (0.0-2.0); EOSINOPHIL % 7.8 % (0-5); GRANULOCYTE % 66.7 % (42.2-75.2); MEAN CORPUSCULAR HGB 34.1 PG (27.0-31.0); MEAN CORPUSCULAR HGB CONC 33.9 G/DL (33.0-37.0); MEAN CORPUSCULAR VOLUME 100.7 FL (80.0-94.0); MEAN PLATELET VOLUME 8.3 FL (7.4-10.4); PLATELET COUNT 215 /CUMM (130-400); PT 19.2 SEC (9.4-12.5); RBC DISTRIBUTION WIDTH 14.6 % (11.5-14.5); RED BLOOD CELL CT 3.08 /CUMM (4.70-6.10); WHITE BLOOD CELL COUNT 7.5 /CUMM (4.8-10.8)
[2016-06-12 08:36] VITALS: BP 124/60
--- NOTE | 2016-06-12 08:41 | PN- Housestaff ---
Subjective Follow-up For: R hip fracture s/p ORIF Subjective: Patient seen and examined this morning. Patient afebrile, he was alert and oriented this morning, no complains Review of Systems Constitutional: Reports: see HPI. Objective Last 24 Hrs of Vital Signs/I&O Vital Signs Date Time Temp Pulse Resp B/P Pulse O2 O2 Flow FiO2 Ox Delivery Rate 06/12 1012 66 124/64 06/12 0836 98.1 64 18 124/60 94 Room Air 06/11 2340 97.5 63 18 106/55 96 Room Air 06/11 2005 102/52 06/11 1713 98.0 63 20 102/52 93 Room Air 06/11 1628 66 104/68 Intake & Output 06/12 1600 06/12 0800 06/12 0000 Intake Total 370 560 Output Total 250 1000 Balance 120 -440 Intake, Oral 370 560 Number 1 Bowel Movements Output, Urine 250 1000 Physical Exam General Appearance: Alert, Cooperative Cardiovascular: Regular Rate, Normal S1, Normal S2 Lungs: Clear to Auscultation, Normal Air Movement Abdomen: Normal Bowel Sounds, Soft, No Tenderness Extremities: No Clubbing, No Cyanosis, No Edema Current Medications: Current Medications Sig/Chirag Start time Last Medication Dose Route Stop Time Status Admin Acetaminophen 650 MG .STK-MED ONE 06/11 1521 DC PO 06/11 1522 Acetaminophen 650 MG Q6P PRN 05/30 1600 AC 06/11 PO 1009 Acetaminophen 1,000 MG Q6P PRN 05/30 1600 AC 06/01 IV 0032 Atorvastatin Calcium 40 MG 1700 05/30 1700 AC 06/11 PO 1627 Bisacodyl 10 MG ONCE ONE 06/11 1345 DC 06/11 CO 06/11 1346 1444 Carvedilol 12.5 MG BID 05/30 2200 AC 06/12 PO 1012 Furosemide 20 MG DAILY 05/31 1000 AC 06/12 PO 1012 Patient Medication 1 UNIT ONE NR 06/12 0930 DC Teaching ED 06/12 1000 Polyethylene Glycol 17 GM DAILY 06/05 1000 AC 06/12 PO 1012 Quetiapine Fumarate 6.25 MG TID 06/12 1000 AC PO Quetiapine Fumarate 12.5 MG TID 06/10 1220 DC 06/10 PO 1645 Senna/Docusate Sodium 1 TAB BID 06/04 2200 AC 06/12 PO 1012 Tamsulosin HCl 0.4 MG 1700 06/05 1700 AC 06/11 PO 1628 Warfarin Sodium 2.5 MG COUMADIN 1700 ONE 06/12 1700 AC PO 06/12 1701 Warfarin Sodium 2.5 MG COUMADIN 1700 ONE 06/11 1700 DC 06/11 PO 06/11 170 1628 Last 24 Hrs of Lab/Wilner Results Last 24 Hrs of Labs/Mics: Laboratory Tests 06/12/16 0615: Anion Gap 11, Estimated GFR 48 L, BUN/Creatinine Ratio 32.9 H, PT 19.2 H, INR 1.84 H, CBC w Diff NO MAN DIFF REQ, RBC 3.08 L, MCV 100.7 H, MCH 34.1 H, RDW 14.6 H, MPV 8.3, Gran % 66.7, Lymphocytes % 18.1 L, Monocytes % 7.0, Eosinophils % 7.8 H, Basophils % 0.4, Absolute Granulocytes 5.0, Absolute Lymphocytes 1.4, Absolute Monocytes 0.5, Absolute Eosinophils 0.6, Absolute Basophils 0, PUBS MCHC 33.9 Assessment/Plan Assessment: This is a 85-year-old male with past medical history of CAD status post MT, TIA, hypertension, congestive heart failure, hyperlipidemia, AAA status post surgery and stent placement, questionable lung nodule, presents with chief complaint of mechanical fall. Vitals creatinine 1.4, hemoglobin 11.9, platelets 152, white count 7.4 EKG does not show any acute findings. We'll admit the patient to general med floor and monitor for the following: Delirium: Patient has been combative and delirious, continues to be confused, due to prolonged QTc we have not been able to give him Haldol or Seroquel on regular basis. EKG daily along with lites monitoring. Attending physician a discussion with the daughter, daughter remains fully aware of the adverse effects of Seroquel and that it will only provide symptomatically relief . She still wants her dad to be on Seroquel overdose for which have already been placed. We'll also get neurology input on his current confusion and delirium and combative behavior. Etiology unclear, reversible dementia w/u -, no infectious cause, he has been afebrile, white count stable. All benzodiazepines and all narcotics discontinued. Ceftriaxone discontinued as UCx (06/03) NGTD. Reorient patient frequently.Supervise patient while eating. Will maintain Fall precautions. Urinary retention: Patient has history of urethral stricture and urinary retention and BPH.he was retaining more than 400 amounts of urine and was initially started on straight Protocol followed by Granado catheter. Urinary retention was thought to be secondary to anesthesia for ORIF. Urology was consulted, patient on Flomax,Granado catheter removed, patient had successful voiding trials, urine output adequate. Remains on straight cath protocol if needed. Hip fracture status post ORIF: MRI hip showed acute fracture of the right greater trochanter with partial intertrochanteric extension anticomplement of the fracture extending longitudinally through The collarbone into the proximal femoral diaphysis. He is status post RF patient tolerating regular diet well, PT has recommended discharge to short-term rehabilitation. Plavix on hold, patient started on Coumadin we'll continue on Coumadin for 6 weeks and then will restart Plavix as per ortho, History of MT/HTN/HLD: Will continue Lasix 20 mg daily, Lipitor 40 mg daily, carvedilol 12.5 mg twice a day Spironolactone(TO BE CONTINUED UPON DISCHARGE) and isosorbide on hold Pain management with Tylenol. Regular diet DVT prophylaxis with Coumadin Patient is DNR/DNI Problem List: 1. Fracture of greater trochanter of right femur 2. Delirium Pain Ratin Pain Location: Right hip Pain Goal: Remain pain free Pain Plan: Tylenol Tomorrow's Labs & Rationales: BEP CBC INR for daily Coumadin dose
--- NOTE | 2016-06-12 13:50 | PN- Att Addend ---
Attending Addendum Attending Brief Note Mr. Cross was interviewed, examined and his EMR was reviewed. His somnolence and lethargy of the previous day is cleared and the patient is alert, oriented and appropriate. He has not required Seroquel for over 24 hours. His INR remains subtherapeutic at 1.84. At this time it would appear that Mr. Macias delirium has cleared. He is however not adequately anticoagulated. I would give an additional loading dose of 5 mg of warfarin this evening and continue observation for delirium and treat with 6.25 mg of Seroquel as needed.
[2016-06-12 15:55] VITALS: BP 104/56
[2016-06-12 23:53] VITALS: BP 118/74
[2016-06-13 08:08] LABS: ABSOLUTE BASOPHIL COUNT 0 /CUMM (0.0-0.2); ABSOLUTE EOSINOPHIL COUNT 0.5 /CUMM (0.0-0.7); ABSOLUTE GRANULOCYTE CT 7.8 /CUMM (1.4-6.5); ABSOLUTE LYMPH COUNT 1.4 /CUMM (1.2-3.4); ABSOLUTE MONOCYTE COUNT 0.7 /CUMM (0.10-0.60); BASOPHIL % 0.2 % (0.0-2.0); EOSINOPHIL % 4.9 % (0-5); GRANULOCYTE % 74.7 % (42.2-75.2); HEMATOCRIT 35.2 % (42-52); MEAN CORPUSCULAR HGB 34.2 PG (27.0-31.0); MEAN CORPUSCULAR VOLUME 100.5 FL (80.0-94.0); MEAN PLATELET VOLUME 8.1 FL (7.4-10.4); PLATELET COUNT 248 /CUMM (130-400); RBC DISTRIBUTION WIDTH 14.8 % (11.5-14.5); WHITE BLOOD CELL COUNT 10.4 /CUMM (4.8-10.8)
[2016-06-13 08:15] VITALS: BP 132/74
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
[2016-06-13 08:34] LABS: PT 25.4 SEC (9.4-12.5)
--- NOTE | 2016-06-13 10:17 | PN- Pulmonary ---
Subjective HPI/Critical Care Issues: Doing about the same Confusion noted again with sig delirium last night Did receive antipsycotics Sleepy this am with mild delirium Objective Current Medications: Current Medications Sig/Chirag Start time Last Medication Dose Route Stop Time Status Admin Acetaminophen 650 MG Q6P PRN 05/30 1600 AC 06/11 PO 1009 Acetaminophen 1,000 MG Q6P PRN 05/30 1600 AC 06/01 IV 0032 Atorvastatin Calcium 40 MG 1700 05/30 1700 AC 06/12 PO 1635 Carvedilol 12.5 MG BID 05/30 2200 AC 06/12 PO 2045 Furosemide 20 MG DAILY 05/31 1000 AC 06/12 PO 1012 Haloperidol 1 MG ONCE ONE 06/13 0145 DC 06/13 IM 06/13 0146 0145 Haloperidol 1 MG ONCE ONE 06/13 0015 DC 06/13 IM 06/13 0016 0009 Olanzapine 5 MG ONCE ONE 06/13 0330 DC 06/13 IM 06/13 0331 0347 Patient Medication 1 UNIT ONE NR 06/12 0930 DC Teaching ED 06/12 1000 Polyethylene Glycol 17 GM DAILY 06/05 1000 AC 06/12 PO 1012 Quetiapine Fumarate 6.25 MG TID 06/12 1000 AC PO Senna/Docusate Sodium 1 TAB BID 06/04 2200 AC 06/12 PO 2045 Tamsulosin HCl 0.4 MG 1700 06/05 1700 AC 06/12 PO 1635 Warfarin Sodium 2.5 MG COUMADIN 1700 ONE 06/12 1700 DC PO 06/12 1701 Warfarin Sodium 5 MG COUMADIN 1700 ONE 06/12 1700 DC 06/12 PO 06/12 1701 1635 Vital Signs & I&O Last 24 Hrs of Vitals and I&O: Vital Signs Date Time Temp Pulse Resp B/P Pulse O2 O2 Flow FiO2 Ox Delivery Rate 06/13 0815 98.0 66 20 132/74 95 06/12 2353 97.2 60 20 118/74 94 Room Air 06/12 2045 112/64 06/12 1635 64 106/56 06/12 1555 97.7 64 20 104/56 94 06/12 1012 66 124/64 Intake & Output 06/13 1600 06/13 0800 06/13 0000 Intake Total 100 600 Output Total 400 450 Balance -300 150 Intake, Oral 100 600 Output, Urine 400 450 Impression/Plan Impression/Plan Impression/Plan: General: sleepy and confused Cardiac: RRR, s1s2 Pulmonary: Bilateral lung sounds clear to auscutation Abdomen: Non-tender, non-distended Extremities: Moves all extremities, distal sensate intact. SKin warm and well perfused. Calves soft and non-tender, dp pulses palpable bilaterally. Surgical site: Stable IMPRESSION This is a gentleman with chronic kidney disease, previous ischemic heart disease with previous VA, hyperlipidemia, peripheral vascular disease, previous AAA repair, who is on clopidogrel for antiplatelet therapy for peripheral vascular disease, hypertension hyperlipidemia now here with a hip fracture s/p surg on His issues include Sig delirium due to multiple othner factors, now with still sig delirium in am with . 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 NO sig etoh history discussed with son again today Recommendation URine analysis and culture with st cath today Discussed with son today in person extensively and options and treatment plan discussed in detail. Option given to get another opinion from another hospital ie transfer to [facility] and son wishes to keep the patient here as he is comfortable with the care here COnt atypical antipsycotics for now Can try one small dose of benzo tonight for sleep with ativan .5 mg DC tyleonol, atorvastatin, and warfarin Will use lovenox 30 mg daily only when the inr is less than 2 NO narcotics Reorientatin rx Try to change his room to a private room if available Check inr in am Banana bag today KYRA quick Aggressive bowel regimen REcall PSych and neuro to eval him We will follow closely patient is DNR/DNI
--- NOTE | 2016-06-13 15:17 | Event Note ---
Event Note Event Note: I spoke with Dr. Hein over the phone, and he recommended zyprexa 2.5 mg po q8prn agitation. Kale Hopkins will see the patient tomorrow. If he is still agitated overnight, please page Dr. Hien at [phone] for further recommendations. I also called Dr. Rosenthal's answering service and requested neurology follow up as per the pt's son's request. Dr. Rosenthal called me back, and although she does not think there is anything she would add or change in terms of management, she will be glad to see re-evaluate him.
[2016-06-13 16:45] VITALS: BP 130/72
[2016-06-13 23:28] VITALS: BP 110/60
[2016-06-14 08:21] VITALS: BP 128/68
--- NOTE | 2016-06-14 08:48 | PN- Housestaff ---
Subjective Follow-up For: Hip fracture status post ORIF Subjective: She seen and examined this morning. He was sitting in his bed eating breakfast in no acute distress. He was alert and oriented. He has been afebrile, otherwise dose remain within normal limits. He was started on Zyprexa 2.5 mg every 8 for agitation but so far he has not required. Review of Systems Constitutional: Reports: see HPI. Objective Last 24 Hrs of Vital Signs/I&O Vital Signs Date Time Temp Pulse Resp B/P Pulse O2 O2 Flow FiO2 Ox Delivery Rate 06/14 1004 Room Air 2.0L 06/14 0821 97.8 58 20 128/68 93 Room Air 06/13 2328 97.4 62 20 110/60 94 06/13 2104 68 108/62 06/13 1732 52 130/72 06/13 1645 97.6 52 18 130/72 94 Room Air Intake & Output 06/14 1600 06/14 0800 06/14 0000 Intake Total 120 720 Output Total 500 Balance -380 720 Intake, Oral 120 720 Output, Urine 500 Physical Exam General Appearance: Alert, No Acute Distress Cardiovascular: Regular Rate, Normal S1, Normal S2, systolic murmur Lungs: Clear to Auscultation, Normal Air Movement Abdomen: Normal Bowel Sounds, Soft, No Tenderness Extremities: No Clubbing, No Cyanosis, No Edema Current Medications: Current Medications Sig/Chirag Start time Last Medication Dose Route Stop Time Status Admin Carvedilol 12.5 MG BID 05/30 2200 AC 06/14 PO 0903 Cyanocobalamin/ 1 BAG ONCE ONE 06/13 1130 DC 06/13 Thiamine/Pyridoxine IV 06/13 1929 1237 Sodium Chloride 1,000 ML Olanzapine 2.5 MG Q8P PRN 06/13 1515 AC PO Patient Medication 1 ED ONE ONE 06/13 1345 DC Teaching ED 06/13 1346 Polyethylene Glycol 17 GM DAILY 06/13 1130 AC 06/14 PO 0904 Senna/Docusate Sodium 1 TAB BID 06/13 1130 AC 06/14 PO 0904 Tamsulosin HCl 0.4 MG 1700 06/05 1700 AC 06/12 PO 1635 Last 24 Hrs of Lab/Wilner Results Last 24 Hrs of Labs/Mics: Laboratory Tests 06/14/16 0800: Anion Gap 9, Estimated GFR 57 L, BUN/Creatinine Ratio 30.0 H, PT 25.2 H, INR 2.42 H, CBC w Diff NO MAN DIFF REQ, RBC 3.08 L, MCV 100.2 H, MCH 33.9 H, RDW 15.3 H, MPV 8.1, Gran % 65.6, Lymphocytes % 18.6 L, Monocytes % 7.7, Eosinophils % 7.9 H, Basophils % 0.2, Absolute Granulocytes 4.7, Absolute Lymphocytes 1.3, Absolute Monocytes 0.6, Absolute Eosinophils 0.6, Absolute Basophils 0, PUBS MCHC 33.8 06/13/16 1118: Urinalysis LIGHT H, Urine Color YEL, Urine Clarity CLEAR, Urine pH 7.0, Ur Specific Dew[place] 1.015, Urine Protein TRACE H, Urine Ketones NEG, Urine Nitrite NEG, Urine Bilirubin NEG, Urine Urobilinogen 2.0 H, Ur Leukocyte Esterase NEG, Ur Microscopic SEDIMENT EXAMINED, Urine RBC 5-10 H, Urine WBC 1-3 H, Ur Epithelial Cells FEW, Granular Casts RARE H, Urine Hemoglobin TRACE-INTACT H, Urine Glucose NEG Assessment/Plan Assessment: This is a 85-year-old male with past medical history of CAD status post NM, TIA, hypertension, congestive heart failure, hyperlipidemia, AAA status post surgery and stent placement, questionable lung nodule, presents with chief complaint of mechanical fall. Vitals creatinine 1.4, hemoglobin 11.9, platelets 152, white count 7.4 EKG does not show any acute findings. We'll admit the patient to general med floor and monitor for the following: Delirium: Patient has been combative and delirious, continues to be confused, due to prolonged QTc we have not been able to give him Haldol or Seroquel on regular basis. EKG daily along with lites monitoring. Attending physician a discussion with the daughter, daughter remains fully aware of the adverse effects of Seroquel and that it will only provide symptomatically relief . She still wants her dad to be on Seroquel overdose for which have already been placed. We'll also get neurology input on his current confusion and delirium and combative behavior. Etiology unclear, reversible dementia w/u -, no infectious cause, he has been afebrile, white count stable. All benzodiazepines and all narcotics discontinued. Ceftriaxone discontinued as UCx (06/03) NGTD. Reorient patient frequently.Supervise patient while eating. Will maintain Fall precautions. * Continue patient safety monitor * Started on Zyprexa 2.5 mg every 8 when necessary for agitation * Can try small dose of 1 time 0.5mg ATIVAN * discontinued lasix, tylenol, lipitor, seroquel. continued senna, miralax, coreg, and flomax. * discontinued warfarin. inr 2.44. can start lovenox 30 if inr is less than 2 * no narcotics * UA did not show any evidence of infection Urinary retention: Patient has history of urethral stricture and urinary retention and BPH.he was retaining more than 400 amounts of urine and was initially started on straight Protocol followed by Granado catheter. Urinary retention was thought to be secondary to anesthesia for ORIF. Urology was consulted, patient on Flomax,Granado catheter removed, patient had successful voiding trials, urine output adequate. Remains on straight cath protocol if needed. Hip fracture status post ORIF: MRI hip showed acute fracture of the right greater trochanter with partial intertrochanteric extension anticomplement of the fracture extending longitudinally through The collarbone into the proximal femoral diaphysis. He is status post RF patient tolerating regular diet well, PT has recommended discharge to short-term rehabilitation. Plavix on hold, warfarin on hold restart Plavix as per ortho History of NM/HTN/HLD: Will continue carvedilol 12.5 mg twice a day Spironolactone(TO BE CONTINUED UPON DISCHARGE) and isosorbide on hold Lasix 20 mg daily, Lipitor 40 mg daily on hold Pain management with Tylenol. Regular diet DVT prophylaxis with Coumadin Patient is DNR/DNI Problem List: 1. Fracture of greater trochanter of right femur Pain Ratin Pain Location: Right hip Pain Goal: Remain pain free Pain Plan: None Tomorrow's Labs & Rationales: INR for Coumadin dosing CBC for H&H monitoring BEP for lytes monitoring
[2016-06-14 09:17] LABS: PT 25.2 SEC (9.4-12.5)
[2016-06-14 09:19] LABS: ABSOLUTE BASOPHIL COUNT 0 /CUMM (0.0-0.2); ABSOLUTE EOSINOPHIL COUNT 0.6 /CUMM (0.0-0.7); ABSOLUTE GRANULOCYTE CT 4.7 /CUMM (1.4-6.5); ABSOLUTE LYMPH COUNT 1.3 /CUMM (1.2-3.4); ABSOLUTE MONOCYTE COUNT 0.6 /CUMM (0.10-0.60); BASOPHIL % 0.2 % (0.0-2.0); EOSINOPHIL % 7.9 % (0-5); GRANULOCYTE % 65.6 % (42.2-75.2); HEMATOCRIT 30.9 % (42-52); MEAN CORPUSCULAR HGB 33.9 PG (27.0-31.0); MEAN CORPUSCULAR HGB CONC 33.8 G/DL (33.0-37.0); MEAN CORPUSCULAR VOLUME 100.2 FL (80.0-94.0); MEAN PLATELET VOLUME 8.1 FL (7.4-10.4); PLATELET COUNT 240 /CUMM (130-400); RBC DISTRIBUTION WIDTH 15.3 % (11.5-14.5); RED BLOOD CELL CT 3.08 /CUMM (4.70-6.10); WHITE BLOOD CELL COUNT 7.2 /CUMM (4.8-10.8)
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
--- NOTE | 2016-06-14 12:53 | PN- Pulmonary ---
Subjective HPI/Critical Care Issues: She seen and examined this morning. He was sitting in his bed eating breakfast in no acute distress. He was alert and oriented. He has been afebrile, otherwise dose remain within normal limits. He was started on Zyprexa 2.5 mg every 8 for agitation but so far he has not required. Objective Current Medications: Current Medications Sig/Chirag Start time Last Medication Dose Route Stop Time Status Admin Carvedilol 12.5 MG BID 05/30 2200 AC 06/14 PO 0903 Cyanocobalamin/ 1 BAG ONCE ONE 06/13 1130 DC 06/13 Thiamine/Pyridoxine IV 06/13 1929 1237 Sodium Chloride 1,000 ML Olanzapine 2.5 MG Q8P PRN 06/13 1515 AC PO Patient Medication 1 ED ONE ONE 06/13 1345 DC Teaching ED 06/13 1346 Polyethylene Glycol 17 GM DAILY 06/13 1130 AC 06/14 PO 0904 Senna/Docusate Sodium 1 TAB BID 06/13 1130 AC 06/14 PO 0904 Tamsulosin HCl 0.4 MG 1700 06/05 1700 AC 06/12 PO 1635 Vital Signs & I&O Last 24 Hrs of Vitals and I&O: Vital Signs Date Time Temp Pulse Resp B/P Pulse O2 O2 Flow FiO2 Ox Delivery Rate 06/14 1004 Room Air 2.0L 06/14 0821 97.8 58 20 128/68 93 Room Air 06/13 2328 97.4 62 20 110/60 94 06/13 2104 68 108/62 06/13 1732 52 130/72 06/13 1645 97.6 52 18 130/72 94 Room Air Intake & Output 06/14 1600 06/14 0800 06/14 0000 Intake Total 120 720 Output Total 500 Balance -380 720 Intake, Oral 120 720 Output, Urine 500 Impression/Plan Impression/Plan Impression/Plan: General: sleepy and confused Cardiac: RRR, s1s2 Pulmonary: Bilateral lung sounds clear to auscutation Abdomen: Non-tender, non-distended Extremities: Moves all extremities, distal sensate intact. SKin warm and well perfused. Calves soft and non-tender, dp pulses palpable bilaterally. Surgical site: Stable IMPRESSION This is a gentleman with chronic kidney disease, previous ischemic heart disease with previous [place], hyperlipidemia, peripheral vascular disease, previous AAA repair, who is on clopidogrel for antiplatelet therapy for peripheral vascular disease, hypertension hyperlipidemia now here with a hip fracture s/p surg on His issues include Sig delirium due to multiple othner factors, now with still sig delirium in am with . 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 NO sig etoh history discussed with son again today REC Cont zyprexa today one dose again this pm at 5 today Check ekg daily Keep mg more than 2 Thiamine 100 po qd for three days Start lasix 20 mg qod Urine culture Reorientation rx Lovenox once the inr is less than 2 at 30 mg daily for a total of six weeks of anticoag DC in am if his confusion has cleared
[2016-06-14 16:42] VITALS: BP 128/78
[2016-06-14 23:30] VITALS: BP 111/59
[2016-06-15 08:00] VITALS: BP 100/60
[2016-06-15 08:02] LABS: ABSOLUTE BASOPHIL COUNT 0 /CUMM (0.0-0.2); ABSOLUTE EOSINOPHIL COUNT 0.6 /CUMM (0.0-0.7); ABSOLUTE GRANULOCYTE CT 5.1 /CUMM (1.4-6.5); ABSOLUTE LYMPH COUNT 1.4 /CUMM (1.2-3.4); ABSOLUTE MONOCYTE COUNT 0.5 /CUMM (0.10-0.60); BASOPHIL % 0.4 % (0.0-2.0); EOSINOPHIL % 7.9 % (0-5); HEMATOCRIT 32.3 % (42-52); MEAN CORPUSCULAR HGB CONC 33.9 G/DL (33.0-37.0); MEAN CORPUSCULAR VOLUME 100.3 FL (80.0-94.0); MEAN PLATELET VOLUME 8.2 FL (7.4-10.4); PLATELET COUNT 225 /CUMM (130-400); RBC DISTRIBUTION WIDTH 15.1 % (11.5-14.5); RED BLOOD CELL CT 3.22 /CUMM (4.70-6.10); WHITE BLOOD CELL COUNT 7.7 /CUMM (4.8-10.8)
[2016-06-15 08:18] LABS: PT 20.4 SEC (9.4-12.5)
--- NOTE | 2016-06-15 09:49 | PN- Pulmonary ---
See Addendum Subjective HPI/Critical Care Issues: Much improved AAO x3 No other developments Objective Current Medications: Current Medications Sig/Chirag Start time Last Medication Dose Route Stop Time Status Admin Carvedilol 12.5 MG BID 05/30 2200 AC 06/14 PO 212 Enoxaparin Sodium 30 MG DAILY 06/15 1000 UNVr SC Furosemide 20 MG DAILY 06/14 1357 AC 06/14 IV 2122 Olanzapine 5 MG ONCE ONE 06/14 1700 DC IM 06/14 1701 Olanzapine 2.5 MG Q8P PRN 06/13 1515 AC PO Polyethylene Glycol 17 GM DAILY 06/13 1130 AC 06/14 PO 0904 Senna/Docusate Sodium 1 TAB BID 06/13 1130 AC 06/14 PO 212 Tamsulosin HCl 0.4 MG 1700 06/05 1700 AC 06/14 PO 2121 Thiamine HCl 100 MG DAILY 06/14 1356 AC 06/14 PO 06/22 1001 2121 Vital Signs & I&O Last 24 Hrs of Vitals and I&O: Vital Signs Date Time Temp Pulse Resp B/P Pulse O2 O2 Flow FiO2 Ox Delivery Rate 06/15 08 97.5 60 20 100/60 95 Room Air 06/14 2330 98.2 62 18 111/59 96 Room Air 06/14 212 120/54 06/14 212 120/54 06/14 1642 98.5 58 18 128/78 94 Room Air 06/14 1004 Room Air 2.0L Intake & Output 06/15 1600 06/15 0800 06/15 0000 Intake Total 240 120 Output Total 550 Balance 240 -430 Intake, Oral 240 120 Number 1 Bowel Movements Output, Urine 550 Laboratory Tests 06/15 06/14 0525 0800 Chemistry Sodium (137 - 145 mmol/L) 141 141 Potassium (3.5 - 5.1 mmol/L) 4.1 4.3 Chloride (98 - 107 mmol/L) 100 103 Carbon Dioxide (22 - 30 mmol/L) 29 28 Anion Gap (5 - 16) 12 9 BUN (9 - 20 mg/dL) 35 H 36 H Creatinine (0.7 - 1.2 mg/dL) 1.3 H 1.2 Estimated GFR (>60 ml/min) 52 L 57 L BUN/Creatinine Ratio (7 - 25 %) 26.9 H 30.0 H Magnesium (1.6 - 2.3 mg/dL) 2.2 Coagulation PT (9.4 - 12.5 SEC) 20.4 H 25.2 H INR (0.90 - 1.17) 1.96 H 2.42 H Hematology CBC w Diff NO MAN DIFF REQ NO MAN DIFF REQ WBC (4.8 - 10.8 /CUMM) 7.7 7.2 RBC (4.70 - 6.10 /CUMM) 3.22 L 3.08 L Hgb (14.0 - 18.0 G/DL) 11.0 L 10.4 L Hct (42 - 52 %) 32.3 L 30.9 L MCV (80.0 - 94.0 FL) 100.3 H 100.2 H MCH (27.0 - 31.0 PG) 34.0 H 33.9 H RDW (11.5 - 14.5 %) 15.1 H 15.3 H Plt Count (130 - 400 /CUMM) 225 240 MPV (7.4 - 10.4 FL) 8.2 8.1 Gran % (42.2 - 75.2 %) 66.0 65.6 Lymphocytes % (20.5 - 51.1 %) 18.9 L 18.6 L Monocytes % (1.7 - 9.3 %) 6.8 7.7 Eosinophils % (0 - 5 %) 7.9 H 7.9 H Basophils % (0.0 - 2.0 %) 0.4 0.2 Absolute Granulocytes (1.4 - 6.5 /CUMM) 5.1 4.7 Absolute Lymphocytes (1.2 - 3.4 /CUMM) 1.4 1.3 Absolute Monocytes (0.10 - 0.60 /CUMM) 0.5 0.6 Absolute Eosinophils (0.0 - 0.7 /CUMM) 0.6 0.6 Absolute Basophils (0.0 - 0.2 /CUMM) 0 0 PUBS MCHC (33.0 - 37.0 G/DL) 33.9 33.8 01/ 1118 Urines Urinalysis LIGHT H Urine Color (YEL,AMB,STR) YEL Urine Clarity (CLEAR) CLEAR Urine pH (5.0 - 8.0) 7.0 Ur Specific [place] (1.001 - 1.035) 1.015 Urine Protein (NEG,<30 MG/DL) TRACE H Urine Ketones (NEG) NEG Urine Nitrite (NEG) NEG Urine Bilirubin (NEG) NEG Urine Urobilinogen (0.1 - 1.0 EU/dl) 2.0 H Ur Leukocyte Esterase (NEG) NEG Ur Microscopic SEDIMENT EXAMINED Urine RBC (0 - 5 /HPF) 5-10 H Urine WBC (0 - 2 /HPF) 1-3 H Ur Epithelial Cells (NONE,FEW) FEW Granular Casts (NONE /LPF) RARE H Urine Hemoglobin (NEG) TRACE-INTACT H Urine Glucose (N MG/DL) NEG Microbiology Date/Time Procedure - Status Source Growth 06/13 1118 Urine Culture - RECD URINE ROUT Impression/Plan Impression/Plan Impression/Plan: General: sleepy and confused Cardiac: RRR, s1s2 Pulmonary: Bilateral lung sounds clear to auscutation Abdomen: Non-tender, non-distended Extremities: Moves all extremities, distal sensate intact. SKin warm and well perfused. Calves soft and non-tender, dp pulses palpable bilaterally. Surgical site: Stable IMPRESSION This is a gentleman with chronic kidney disease, previous ischemic heart disease with previous [place], hyperlipidemia, peripheral vascular disease, previous AAA repair, who is on clopidogrel for antiplatelet therapy for peripheral vascular disease, hypertension hyperlipidemia now here with a hip fracture s/p surg on His issues include Sig delirium due to multiple othner factors, now with still sig delirium in am with . Did have seroquel and other antipsycotics before now received zyprexa IM yesterday and has improved Due to prolonged qtc atypical antipsycotics cannot be used safely but as a last resort we are using this and family agrees to rx with these meds aswell as they wish more of symptomatic care Resolved Urinary retention stable s/p holden now on flomax and holden removed and pt is urinating ok, Urology following, will again rule out uti if able Pain in the surg site resolved, now off all narcotics for more than a week Postop constipation resolved Mild cognitive impairment which is being worked up before with CT scan and 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 NO sig etoh history discussed with son again today REC Cont zyprexa today one dose again this pm at 5 today if pt cannot take po then IM Check ekg daily Keep mg more than 2 Thiamine 100 po qd for three days Start lasix 20 mg qod Urine culture Reorientation rx Give lovenox 30 mg today and then daily DC in am to Kwasi adams Ambulate and reorientation rx Discussed with daughter today over the tele and updated
--- NOTE | 2016-06-15 10:35 | PN- Housestaff ---
Subjective Follow-up For: Hip fracture status post ORIF Subjective: patient seen and examined this morning. He was sitting in his bed eating breakfast in no acute distress. He was alert and oriented. no complaints. afebrile, vitals within normal limits. Review of Systems Constitutional: Reports: see HPI. Objective Last 24 Hrs of Vital Signs/I&O Vital Signs Date Time Temp Pulse Resp B/P Pulse O2 O2 Flow FiO2 Ox Delivery Rate 06/15 1649 97.6 62 21 108/68 93 Room Air 06/15 1551 97.5 58 20 88/50 06/15 1200 98/56 06/15 1147 Room Air 2.0L 06/15 1106 58 88/50 06/15 0800 97.5 60 20 100/60 95 Room Air 06/14 2330 98.2 62 18 111/59 96 Room Air 06/14 2122 120/54 06/14 2121 120/54 Intake & Output 06/15 1600 06/15 0800 06/15 0000 Intake Total 660 240 120 Output Total 550 Balance 660 240 -430 Intake, Oral 660 240 120 Number 1 Bowel Movements Output, Urine 550 Physical Exam General Appearance: Alert, Oriented X3, Cooperative, No Acute Distress Cardiovascular: Regular Rate, Normal S1, Normal S2 Lungs: Clear to Auscultation, Normal Air Movement Abdomen: Normal Bowel Sounds, Soft, No Tenderness Extremities: No Clubbing, No Cyanosis, No Edema Current Medications: Current Medications Sig/Chirag Start time Last Medication Dose Route Stop Time Status Admin Carvedilol 12.5 MG BID 05/30 2200 DC 06/14 PO 2122 Cefuroxime Sodium 250 MG Q12 06/15 1745 AC PO Enoxaparin Sodium 30 MG DAILY 06/15 1100 AC 06/15 SC 1249 Furosemide 20 MG DAILY 06/14 1357 DC 06/14 IV 2122 Olanzapine 2.5 MG DAILY 06/16 1000 AC PO Olanzapine 5 MG ONCE ONE 06/15 1115 DC 06/15 IM 06/15 1116 1248 Olanzapine 2.5 MG Q8P PRN 06/13 1515 AC PO Patient Medication 1 ED .STK-MED ONE 06/15 1405 ME Teaching ED 06/15 1406 Polyethylene Glycol 17 GM DAILY 06/13 1130 AC 06/15 PO 1107 Senna/Docusate Sodium 1 TAB BID 06/13 1130 AC 01/04 PO 1107 Tamsulosin HCl 0.4 MG 1700 06/05 1700 AC 06/14 PO 2121 Thiamine HCl 100 MG DAILY 06/14 1356 AC 06/15 PO 06/22 1001 1107 Last 24 Hrs of Lab/Wilner Results Last 24 Hrs of Labs/Mics: Laboratory Tests 06/15/16 0525: Anion Gap 12, Estimated GFR 52 L, BUN/Creatinine Ratio 26.9 H, Magnesium 2.2, PT 20.4 H, INR 1.96 H, CBC w Diff NO MAN DIFF REQ, RBC 3.22 L, MCV 100.3 H, MCH 34.0 H, RDW 15.1 H, MPV 8.2, Gran % 66.0, Lymphocytes % 18.9 L, Monocytes % 6.8, Eosinophils % 7.9 H, Basophils % 0.4, Absolute Granulocytes 5.1, Absolute Lymphocytes 1.4, Absolute Monocytes 0.5, Absolute Eosinophils 0.6, Absolute Basophils 0, PUBS MCHC 33.9 Assessment/Plan Assessment: This is a 85-year-old male with past medical history of CAD status post [place], TIA, hypertension, congestive heart failure, hyperlipidemia, AAA status post surgery and stent placement, questionable lung nodule, presents with chief complaint of mechanical fall. Vitals creatinine 1.4, hemoglobin 11.9, platelets 152, white count 7.4 EKG does not show any acute findings. We'll admit the patient to general med floor and monitor for the following: Delirium: Patient has been combative and delirious, continues to be confused, due to prolonged QTc we have not been able to give him Haldol or Seroquel on regular basis. EKG daily along with lites monitoring. Attending physician a discussion with the daughter, daughter remains fully aware of the adverse effects of Seroquel and that it will only provide symptomatically relief . She still wants her dad to be on Seroquel overdose for which have already been placed. We'll also get neurology input on his current confusion and delirium and combative behavior. Etiology unclear, reversible dementia w/u -, no infectious cause, he has been afebrile, white count stable. All benzodiazepines and all narcotics discontinued. Ceftriaxone discontinued as UCx (06/03) NGTD. Reorient patient frequently.Supervise patient while eating. Will maintain Fall precautions. * Started on Zyprexa 2.5 mg every 8 when necessary for agitation * Can try small dose of 1 time 0.5mg ATIVAN * discontinued lasix, tylenol, lipitor, seroquel. continued senna, miralax, coreg, and flomax. * started lovenox 30 , continue for next 6 weeks * no narcotics * Urine cx showed GNR, started on ceftin Urinary retention: Patient has history of urethral stricture and urinary retention and BPH.he was retaining more than 400 amounts of urine and was initially started on straight Protocol followed by Granado catheter. Urinary retention was thought to be secondary to anesthesia for ORIF. Urology was consulted, patient on Flomax,Granado catheter removed, patient had successful voiding trials, urine output adequate. Remains on straight cath protocol if needed. Hip fracture status post ORIF: MRI hip showed acute fracture of the right greater trochanter with partial intertrochanteric extension anticomplement of the fracture extending longitudinally through The collarbone into the proximal femoral diaphysis. He is status post RF patient tolerating regular diet well, PT has recommended discharge to short-term rehabilitation. Plavix on hold, warfarin on hold restart Plavix as per ortho History of ND/HTN/HLD: Will continue carvedilol 12.5 mg twice a day Spironolactone(TO BE CONTINUED UPON DISCHARGE) and isosorbide on hold Lasix 20 mg daily, Lipitor 40 mg daily on hold Pain management with Tylenol. Regular diet DVT prophylaxis with Coumadin Patient is DNR/DNI Problem List: 1. Fracture of greater trochanter of right femur 2. Delirium Pain Ratin Pain Location: right hip Pain Goal: Remain pain free Pain Plan: none Tomorrow's Labs & Rationales: inr cbc magnesium
[2016-06-15] MEDS ORDERED: LOVENOX30 MG/0.1 SC (11:03)
[2016-06-15 12:00] VITALS: BP 98/56
[2016-06-15 15:51] VITALS: BP 88/50
[2016-06-15 16:49] VITALS: BP 108/68
[2016-06-15] MEDS ORDERED: ZYPREXA2.5 M1 PO (17:39)
[2016-06-15] MEDS ORDERED: CEFUROXIME250 M1 PO (17:43)
[2016-06-16 00:33] VITALS: BP 120/68
--- NOTE | 2016-06-16 06:50 | Event Note ---
Event Note Event Note: Order number 7 called around 630 am. Pt very agitated and combative. Pt continued to scream at the top of his lungs and wanted to be left alone. He also remained combative. We will give one time 5 mg IM zyprexa and put pt on benson. Update 703am: nurse reported pt is calm with benson.
[2016-06-16 08:17] VITALS: BP 130/70
--- NOTE | 2016-06-16 08:41 | PN- Housestaff ---
Subjective Follow-up For: Hip fracture status post ORIF Delirium Subjective: Patient seen and examined this morning. He was sitting comfortably in no acute distress. But in the morning around 6:30 AM order #7 was called he was found to be very agitated and combative and was screaming. Was given 5 mg of IM Zyprexa. Otherwise vitals remained within normal limits, he was able to ambulate with assistance, remains pain-free. Review of Systems Constitutional: Reports: see HPI. Objective Last 24 Hrs of Vital Signs/I&O Vital Signs Date Time Temp Pulse Resp B/P Pulse O2 O2 Flow FiO2 Ox Delivery Rate 06/16 1601 97.6 64 18 124/60 96 Room Air 06/16 0817 98.5 70 18 130/70 97 Room Air 06/16 0033 98.1 64 19 120/68 95 Room Air 06/15 1649 97.6 62 21 108/68 93 Room Air Intake & Output 06/16 1600 06/16 0800 06/16 0000 Intake Total 600 240 480 Output Total 375 250 Balance 225 -10 480 Intake, Oral 600 240 480 Number 1 1 Bowel Movements Output, Urine 375 250 Physical Exam General Appearance: Alert, Cooperative, No Acute Distress Cardiovascular: Regular Rate, Normal S1, Normal S2, No Murmurs Lungs: Clear to Auscultation, Normal Air Movement Abdomen: Normal Bowel Sounds, Soft, No Tenderness Extremities: No Clubbing, No Cyanosis, No Edema Current Medications: Current Medications Sig/Chirag Start time Last Medication Dose Route Stop Time Status Admin Carvedilol 12.5 MG BID 05/30 2200 DC 06/14 PO 2122 Cefuroxime Sodium 250 MG Q12 06/15 1745 AC 06/16 PO 0933 Enoxaparin Sodium 30 MG DAILY 06/15 1100 AC 06/16 SC 0933 Furosemide 20 MG DAILY 06/14 1357 DC 06/14 IV 2122 Olanzapine 2.5 MG DAILY 06/16 1000 AC 06/16 PO 0933 Olanzapine 5 MG ONCE ONE 06/16 0700 DC IM 06/16 0701 Olanzapine 2.5 MG Q8P PRN 06/13 1515 AC PO Polyethylene Glycol 17 GM DAILY 06/13 1130 AC 06/16 PO 0935 Senna/Docusate Sodium 1 TAB BID 06/13 1130 AC 06/16 PO 0933 Tamsulosin HCl 0.4 MG 1700 06/05 1700 AC 06/14 PO 2121 Thiamine HCl 100 MG DAILY 06/14 1356 AC 06/16 PO 06/22 1001 0933 Assessment/Plan Assessment: This is a 85-year-old male with past medical history of CAD status post [place], TIA, hypertension, congestive heart failure, hyperlipidemia, AAA status post surgery and stent placement, questionable lung nodule, presents with chief complaint of mechanical fall. Vitals creatinine 1.4, hemoglobin 11.9, platelets 152, white count 7.4 EKG does not show any acute findings. We'll admit the patient to general med floor and monitor for the following: Delirium: Patient has been combative and delirious, continues to be confused, due to prolonged QTc we have not been able to give him Haldol or Seroquel on regular basis. EKG daily along with lites monitoring. Attending physician a discussion with the daughter, daughter remains fully aware of the adverse effects of Seroquel and that it will only provide symptomatically relief . She still wants her dad to be on Seroquel overdose for which have already been placed. We'll also get neurology input on his current confusion and delirium and combative behavior. Etiology unclear, reversible dementia w/u -, no infectious cause, he has been afebrile, white count stable. All benzodiazepines and all narcotics discontinued. Ceftriaxone discontinued as UCx (06/03) NGTD. Reorient patient frequently.Supervise patient while eating. Will maintain Fall precautions. * Started on Zyprexa 2.5 mg daily and every 8 when necessary for agitation * discontinued lasix, tylenol, lipitor, seroquel. continued senna, miralax, coreg, and flomax. * started lovenox 30 , continue for next 6 weeks * no narcotics * Urine cx showed GNR, started on ceftin Urinary retention: Patient has history of urethral stricture and urinary retention and BPH.he was retaining more than 400 amounts of urine and was initially started on straight Protocol followed by Granado catheter. Urinary retention was thought to be secondary to anesthesia for ORIF. Urology was consulted, patient on Flomax,Granado catheter removed, patient had successful voiding trials, urine output adequate. Remains on straight cath protocol if needed. Hip fracture status post ORIF: MRI hip showed acute fracture of the right greater trochanter with partial intertrochanteric extension anticomplement of the fracture extending longitudinally through The collarbone into the proximal femoral diaphysis. He is status post RF patient tolerating regular diet well, PT has recommended discharge to short-term rehabilitation. Plavix on hold, warfarin on hold restart Plavix as per ortho History of SD/HTN/HLD: Will continue carvedilol 12.5 mg twice a day Spironolactone(TO BE CONTINUED UPON DISCHARGE) and isosorbide on hold Lasix 20 mg daily, Lipitor 40 mg daily on hold Pain management with Tylenol. Regular diet DVT prophylaxis with Coumadin Patient is DNR/DNI Problem List: 1. Delirium 2. Fracture of greater trochanter of right femur Pain Ratin Pain Location: Right hip Pain Goal: Remain pain free Pain Plan: mild pp Tomorrow's Labs & Rationales: CBC for H&H monitoring BEP for lytes
--- NOTE | 2016-06-16 12:16 | PN- Pulmonary ---
Subjective HPI/Critical Care Issues: Order number 7 called around 630 am. Pt very agitated and combative. Pt continued to scream at the top of his lungs and wanted to be left alone. He also remained combative. We will give one time 5 mg IM zyprexa and put pt on benson. Update 703am: nurse reported pt is calm with benson. Sleeping Ekg this am in sinus with slightly prolonged qtc Started on ceftin Growing proteus in the urine Objective Current Medications: Current Medications Sig/Chirag Start time Last Medication Dose Route Stop Time Status Admin Carvedilol 12.5 MG BID 05/30 2200 DC 06/14 PO 2122 Cefuroxime Sodium 250 MG Q12 06/15 1745 AC 06/16 PO 0933 Enoxaparin Sodium 30 MG DAILY 06/15 1100 AC 06/16 SC 0933 Furosemide 20 MG DAILY 06/14 1357 DC 06/14 IV 2122 Olanzapine 2.5 MG DAILY 06/16 1000 AC 06/16 PO 0933 Olanzapine 5 MG ONCE ONE 06/16 0700 DC IM 06/16 0701 Olanzapine 2.5 MG Q8P PRN 06/13 1515 AC PO Patient Medication 1 ED .STK-MED ONE 06/15 1405 DC Teaching ED 06/15 1406 Polyethylene Glycol 17 GM DAILY 06/13 1130 AC 06/16 PO 0935 Senna/Docusate Sodium 1 TAB BID 06/13 1130 AC 06/16 PO 0933 Tamsulosin HCl 0.4 MG 1700 06/05 1700 AC 06/14 PO 2121 Thiamine HCl 100 MG DAILY 06/14 1356 AC 06/16 PO 06/22 1001 0933 Vital Signs & I&O Last 24 Hrs of Vitals and I&O: Vital Signs Date Time Temp Pulse Resp B/P Pulse O2 O2 Flow FiO2 Ox Delivery Rate 06/16 0817 98.5 70 18 130/70 97 Room Air 06/16 0033 98.1 64 19 120/68 95 Room Air 06/15 1649 97.6 62 21 108/68 93 Room Air 06/15 1551 97.5 58 20 88/50 Intake & Output 06/16 1600 06/16 0800 06/16 0000 Intake Total 240 480 Output Total 250 Balance -10 480 Intake, Oral 240 480 Number 1 Bowel Movements Output, Urine 250 Impression/Plan Impression/Plan Impression/Plan: General: sleepy Cardiac: RRR, s1s2 Pulmonary: Bilateral lung sounds clear to auscutation Abdomen: Non-tender, non-distended Extremities: Moves all extremities, distal sensate intact. SKin warm and well perfused. Calves soft and non-tender, dp pulses palpable bilaterally. Surgical site: Stable IMPRESSION This is a gentleman with chronic kidney disease, previous ischemic heart disease with previous [place], hyperlipidemia, peripheral vascular disease, previous AAA repair, who is on clopidogrel for antiplatelet therapy for peripheral vascular disease, hypertension hyperlipidemia now here with a hip fracture s/p surg on His issues include Sig delirium due to multiple othner factors, now with still sig delirium in am with owing. Did have seroquel before and other antipsycotics before now received zyprexa IM and had improved but continues to have owning with confusion in am Due to prolonged qtc atypical antipsycotics cannot be used safely but as a last resort we are using this and family agrees to rx with these meds aswell as they wish more of symptomatic care Resolved Urinary retention stable s/p holden now on flomax and holden removed and pt is urinating ok, but has proteus colonization vs uti ( Urology following from before) Resolved Pain in the surg site resolved, now off all narcotics for more than a week Postop constipation resolved Mild cognitive impairment which is being worked up before with CT scan and 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 NO sig etoh history discussed with son again today REC Cont zyprexa today one dose given this am and avoid more zyprexa Pt would need a diffirent room if available Check ekg daily Keep mg more than 2 Thiamine 100 po qd for three days Start lasix 20 mg qod start in few days when able Cont ceftin 250 bid prob for seven days Reorientation rx Give lovenox 30 mg daily DC in am to Kwasi adams if stable Ambulate and reorientation rx Discussed with daughter yesterday at the bedside in the pad[facility]
[2016-06-16 16:01] VITALS: BP 124/60
[2016-06-17 00:13] VITALS: BP 124/68
[2016-06-17 07:51] LABS: ABSOLUTE BASOPHIL COUNT 0 /CUMM (0.0-0.2); ABSOLUTE EOSINOPHIL COUNT 0.7 /CUMM (0.0-0.7); ABSOLUTE GRANULOCYTE CT 4.6 /CUMM (1.4-6.5); ABSOLUTE LYMPH COUNT 1.3 /CUMM (1.2-3.4); ABSOLUTE MONOCYTE COUNT 0.5 /CUMM (0.10-0.60); BASOPHIL % 0.3 % (0.0-2.0); EOSINOPHIL % 9.3 % (0-5); GRANULOCYTE % 65.1 % (42.2-75.2); HEMATOCRIT 31.8 % (42-52); MEAN CORPUSCULAR HGB 34.2 PG (27.0-31.0); MEAN CORPUSCULAR VOLUME 100.6 FL (80.0-94.0); PLATELET COUNT 248 /CUMM (130-400); RBC DISTRIBUTION WIDTH 15.2 % (11.5-14.5); RED BLOOD CELL CT 3.16 /CUMM (4.70-6.10)
--- NOTE | 2016-06-17 08:28 | PN- Pulmonary ---
See Addendum Subjective HPI/Critical Care Issues: Again was confused last night Much better this morning Awake alert and oriented Now coming off restraint Review of symptoms otherwise unremarkable Objective Current Medications: Current Medications Sig/Chirag Start time Last Medication Dose Route Stop Time Status Admin Cefuroxime Sodium 250 MG Q12 06/15 1745 DC 06/16 PO 0933 Enoxaparin Sodium 30 MG DAILY 06/15 1100 AC 06/16 SC 0933 Olanzapine 2.5 MG DAILY 06/16 1000 AC 06/16 PO 0933 Olanzapine 2.5 MG Q8P PRN 06/13 1515 AC PO Polyethylene Glycol 17 GM DAILY 06/13 1130 AC 06/16 PO 0935 Senna/Docusate Sodium 1 TAB BID 06/13 1130 AC 06/16 PO 0933 Tamsulosin HCl 0.4 MG 1700 06/05 1700 AC 06/16 PO 1708 Thiamine HCl 100 MG DAILY 06/14 1356 AC 06/16 PO 06/22 1001 0933 Vital Signs & I&O Last 24 Hrs of Vitals and I&O: Vital Signs Date Time Temp Pulse Resp B/P Pulse O2 O2 Flow FiO2 Ox Delivery Rate 06/17 0013 97.4 60 20 124/68 94 Room Air 06/16 1708 64 124/60 06/16 1601 97.6 64 18 124/60 96 Room Air 06/16 1600 96 Room Air Room Air Intake & Output 06/17 1600 06/17 0800 06/17 0000 Intake Total 100 760 Output Total 50 300 Balance 50 460 Intake, Oral 100 760 Number 1 2 Bowel Movements Output, Urine 50 300 Impression/Plan Impression/Plan Impression/Plan: General: sleepy Cardiac: RRR, s1s2 Pulmonary: Bilateral lung sounds clear to auscutation Abdomen: Non-tender, non-distended Extremities: Moves all extremities, distal sensate intact. SKin warm and well perfused. Calves soft and non-tender, dp pulses palpable bilaterally. Surgical site: Stable IMPRESSION This is a gentleman with chronic kidney disease, previous ischemic heart disease with previous DE, hyperlipidemia, peripheral vascular disease, previous AAA repair, who is on clopidogrel for antiplatelet therapy for peripheral vascular disease, hypertension hyperlipidemia now here with a hip fracture s/p surg on His issues include Sig delirium due to multiple other factors, now with still sig delirium in early a.m. with . Did have seroquel before and other antipsycotics before now received zyprexa and had improved but continues to have owning with confusion in am Due to prolonged qtc atypical antipsycotics cannot be used safely but as a last resort we are using this and family agrees to rx with these meds aswell as they wish more of symptomatic care Resolved Urinary retention stable s/p holden now on flomax and holden removed and pt is urinating ok, but has proteus colonization vs uti ( Urology following from before) Resolved Pain in the surg site resolved, now off all narcotics for more than a week Postop constipation resolved Mild cognitive impairment which is being worked up before with CT scan and 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 NO sig etoh history discussed with son again today REC Cont zyprexa today one dose given this am and avoid more zyprexa Pt would need a diffirent room if available Check ekg daily Keep mg more than 2 Thiamine can be DC'd Start lasix 20 mg Monday Cont ceftin 250 bid prob for seven days Reorientation rx, patient should be placed in a different back feeder plywood layup line Deirdre and he should be sitting out in the hallway during the day. Give lovenox 30 mg daily Removed restrained today Patient would benefit from a [facility] please try to see with a can get a bed if not if he stable by tomorrow he should go to [facility] [place] [facility] please call neurology and psychiatry to keep following him here Ambulate and reorientation rx Discussed with daughter before
[2016-06-17 08:53] VITALS: BP 126/58
--- NOTE | 2016-06-17 15:22 | PN- Psychiatry ---
See Addendum Assessment/Plan Impression: Jasvir is calm, oriented, but pleasantly confused. He has olanzapine 2.5 mg PO daily ordered, as well as olanzapine 2.5 mg PO every 8 hours as needed for agitation, but has not received any when necessary doses. EKG on 06/17/16 @ 0505 shows ?atrial fibrillation, 67 bpm, QTc 494 mS; not reviewed by cardiology yet. Suggestion: 1. Please avoid delirium triggers, such as benzodiazepines, opiate pain medications, medications with strong anticholinergic properties, constipation, or unnecessary nighttime awakenings. Please cluster nursing interventions, so the patient may have as much uninterrupted sleep as possible. 2. We suggest stopping the standing order for olanzapine 2.5 mg PO daily, and keeping the order for olanzapine 2.5 mg PO up to 3 times per day as needed, for agitation. a. EKG must show no arrhythmia, and QTC less than or equal to 475 ms. Please ask cardiology, or Leno Dill MD to comment on the use of this medication. b. Hold this medication if oversedated. c. Monitor and replete electrolytes, in particular magnesium and potassium to the upper portion of the normal range. Hypomagnesemia is associated with TdP. 3. Please consider geriatric psychiatry for placement. We understand he will need physical rehabilitation for his fractured hip. 4. A physician's emergency certificate 15 day document has been partially filled out for signature by the attending physician, or other licensed medical doctor. Thank you for asking us to participate in Jasvir's care. We do not expect to have further visits with the patient. Please reconsult if other psychiatric matters arise. Micah Hopkins APRN, pager [phone]. Subjective Subjective: I revisited the patient today, 06/17/2016, at 1445, in room 215-1. He is sitting in his chair calmly, dosing, but arousable. The patient spoke at normal volume and rate, without appreciable delay. He chose to keep his eyes closed during most of the interview, but does not appear to be responding to internal stimuli. He is oriented to person, place, day. He denies auditory or visual hallucinations, states, "I saw your yesterday," and calls out intermittently to [place] or Julia, but denies seeing them. He endorses depression, "a little," and when asked about anxiety, states, "all the time, go go go." He denies suicidal or homicidal ideation. He reports that he feels safe here.
[2016-06-17] MEDS ORDERED: CEFUROXIME250 M1 PO (16:09)
[2016-06-17 16:58] VITALS: BP 118/78
--- NOTE | 2016-06-17 17:06 | Cons- Cardiology ---
General Information and HPI Consulting Request Date of Consult: 06/17/16 Requested By: MARSHA VASQUEZ,NAY Egan Reason for Consult: Abnormal EKG Source of Information: old records Exam Limitations: poor historian History of Present Illness: This is an 86 y/o male with a reported PMH of CAD/PR, PVD, CKD, AAA repair, s/p mechanical fall with hip fx s/p ORIF with subsequent intermittent delerium/ agitation. I was asked to see the patient to evaluate cardiac risk of antipsychotic meds. Patient was calm but confused at the time of my interview and the hx was obtained from the medical record. No reports of dyspnea, chest pain, palpitations, or obvious syncope. Medical team and consult notes were reviewed. On my interview with the patient this evening his was sitting up his in chair. Appeared comfortable but confused but offered no complaints. Allergies/Medications Allergies: Coded Allergies: oxycodone (From PERCOCET) (HALLUCINATIONS 05/30/16) Home Med List: Atorvastatin Calcium 40 MG TABLET 1 TAB PO DAILY CHOLESTEROL (Reported) Carvedilol 12.5 MG TABLET 1 TAB PO BID HEART (Reported) HOLD FOR SYSTOLIC BLOOD PRESSURE <100 Cefuroxime Axetil (Cefuroxime) 250 MG TABLET 250 MG PO Q12 uti Cholecalciferol (Vitamin D3) (Unknown Strength) TABLET (Unknown Dose) PO BID SUPPLEMENT (Reported) Clopidogrel Bisulfate (Clopidogrel) 75 MG TABLET 1 TAB PO DAILY BLOOD THINNER (Reported) Cyanocobalamin (Vitamin B-12) 1,000 MCG TABLET 1 TAB PO DAILY SUPPLEMENT ( Reported) Enoxaparin Sodium (Lovenox) 30 MG/0.3 ML SYRINGE 30 MG SC DAILY anticoagulation Furosemide 20 MG TABLET 1 TAB PO EOD WATER PILL (Reported) Isosorbide Mononitrate (Isosorbide Mononitrate ER) 30 MG TAB.ER.24H 1 TAB PO DAILY HEART (Reported) Spironolactone 25 MG TABLET 1 TAB PO DAILY HEART (Reported) Current Medications: Current Medications Sig/Chirag Start time Last Medication Dose Route Stop Time Status Admin Cefuroxime Sodium 250 MG Q12 06/17 1000 AC 06/17 PO 0850 Enoxaparin Sodium 30 MG DAILY 06/15 1100 AC 06/17 SC 0849 Olanzapine 2.5 MG DAILY 06/16 1000 AC 06/17 PO 0850 Olanzapine 2.5 MG Q8P PRN 06/13 1515 AC PO Patient Medication 1 ED .STK-MED ONE 06/17 1335 DC Teaching ED 06/17 1336 Polyethylene Glycol 17 GM DAILY 06/13 1130 DC 06/17 PO 0850 Senna/Docusate Sodium 1 TAB BID 06/13 1130 DC 06/17 PO 0850 Tamsulosin HCl 0.4 MG 1700 06/05 1700 AC 06/17 PO 1639 Thiamine HCl 100 MG DAILY 06/14 1356 AC 06/17 PO 06/22 1001 0850 Review of Systems Review of Systems: Unable to obtain due to poor mental status. Past History Travel History Traveled to [place] past 21 day No Medical History Blood Transfusion Hx: No Neurological: CVA EENT: NONE Cardiovascular: hypertension, hyperlipidemia, myocardial infarction, peripheral vascular disease Respiratory: pulmonary nodule? 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 Home Who Do You Live With? spouse Services at Home: None Primary Language: Sinhala Smoking Status: Former Smoker ETOH Use: occasional use Illicit Drug Use: denies illicit drug use Functional Ability ADLs Independent: dressing, eating, toileting, bathing. Ambulation: independent IADLs Independent: shopping, housework, finances, food prep, telephone, transportation , medication admin. Exam & Diagnostic Data Vital Signs and I&O Vital Signs Date Time Temp Pulse Resp B/P Pulse O2 O2 Flow FiO2 Ox Delivery Rate 06/17 852 98.1 69 20 126/58 95 Room Air 06/17 0800 94 Room Air Room Air 06/17 0013 97.4 60 20 124/68 94 Room Air 06/16 1708 64 124/60 Intake & Output 06/17 1600 06/17 0000 06/16 1600 06/16 0000 Intake Total 800 100 760 600 240 480 Output Total 450 50 300 375 250 Balance 350 50 460 225 -10 480 Intake, Oral 800 100 760 600 240 480 Number 1 1 2 1 1 Bowel Movements Output, Urine 450 50 300 375 250 Physical Exam: General: no apparent distress, pleasantly confused Eyes: No obvious scleral icterus. HEENT: No jugular venous distention or abnormal jugular venous pulsations. Cardiovascular: Normal intensity S1/S2. Regular. Respiratory: No rales or rhonchi Abdomen: Soft, nontender with no guarding or rebound tenderness. Musculoskeletal: No clubbing or cyanosis noted, no edema Skin: Warm Labs/Wilner Results: Laboratory Tests 06/17 06/16 0645 0600 Chemistry Sodium (137 - 145 mmol/L) 141 Cancelled Potassium (3.5 - 5.1 mmol/L) 4.2 Cancelled Chloride (98 - 107 mmol/L) 103 Cancelled Carbon Dioxide (22 - 30 mmol/L) 28 Cancelled Anion Gap (5 - 16) 10 Cancelled BUN (9 - 20 mg/dL) 35 H Cancelled Creatinine (0.7 - 1.2 mg/dL) 1.2 Cancelled Estimated GFR (>60 ml/min) 57 L BUN/Creatinine Ratio (7 - 25 %) 29.2 H Cancelled Magnesium (1.6 - 2.3 mg/dL) 2.2 Coagulation PT Cancelled INR Cancelled Hematology CBC w Diff NO MAN DIFF REQ WBC (4.8 - 10.8 /CUMM) 7.0 RBC (4.70 - 6.10 /CUMM) 3.16 L Hgb (14.0 - 18.0 G/DL) 10.8 L Hct (42 - 52 %) 31.8 L MCV (80.0 - 94.0 FL) 100.6 H MCH (27.0 - 31.0 PG) 34.2 H RDW (11.5 - 14.5 %) 15.2 H Plt Count (130 - 400 /CUMM) 248 MPV (7.4 - 10.4 FL) 8.0 Gran % (42.2 - 75.2 %) 65.1 Lymphocytes % (20.5 - 51.1 %) 18.1 L Monocytes % (1.7 - 9.3 %) 7.2 Eosinophils % (0 - 5 %) 9.3 H Basophils % (0.0 - 2.0 %) 0.3 Absolute Granulocytes (1.4 - 6.5 /CUMM) 4.6 Absolute Lymphocytes (1.2 - 3.4 /CUMM) 1.3 Absolute Monocytes (0.10 - 0.60 /CUMM) 0.5 Absolute Eosinophils (0.0 - 0.7 /CUMM) 0.7 Absolute Basophils (0.0 - 0.2 /CUMM) 0 PUBS MCHC (33.0 - 37.0 G/DL) 34.0 Diagnostic Data EKG Results Tracing from today personally reviewed, shows SR with 1st degree AVB, RBBB/LAFB, NSTW abnorm, normal QTC CXR Results IMPRESSION: No acute change of chest. (06/03) Other Results Head CT 05/30 IMPRESSION: 1. No acute intracranial pathology compared to 01/05/2016 2. No acute fractures within the degenerated cervical spine. 3. [id number] degenerative disc disease and uncovertebral joint hypertrophy of C5-C6 and C6-C7. There is severe bilateral neural foraminal stenosis at these levels. Assessment/Plan Assessment/Plan 1. AMS/delerium 2. Conduction abnormality by ECG (RBBB/LAFB) 3. Reported hx of CAD/PR/PVD 4. HTN/HLD 5. s/p mechanical fall with hip fx and ORIF 6. CKD Cardiac status appears stable. Resume outpatient cardiac meds. No absolute contraindication to Zyprexa; mildly elevated cardiac risk of this medication in this patient. I discussed with Dr. Dill and family is willing to accept increased risk given the potential clinical benefit. QTC remains < 500 with additional conduction disease noted. Check another ECG tomorrow but in the absence of major ECG changes no further inpatient cardiac work-up indicated. Recommend follow-up with cardiology within 1 week of discharge. Plan was discussed with the nurse and housestaff this evening. Brandon Ruiz MD FAC Consult Acknowledgment - Thank you for your consult request.
--- NOTE | 2016-06-17 18:51 | PN- Housestaff ---
Subjective Follow-up For: hip fx s/p surgery ORIF Subjective: Pt seen & examined.lying in bed in no acute distress, remains afebrile, no repeat episodes of agitation. no other complains. Review of Systems Constitutional: Reports: see HPI. Objective Last 24 Hrs of Vital Signs/I&O Vital Signs Date Time Temp Pulse Resp B/P Pulse O2 O2 Flow FiO2 Ox Delivery Rate 06/17 1658 98.0 58 20 118/78 96 Room Air 06/17 0853 98.1 69 20 126/58 95 Room Air 06/17 0800 94 Room Air Room Air 06/17 0013 97.4 60 20 124/68 94 Room Air Intake & Output 06/17 1600 06/17 0800 06/17 0000 Intake Total 800 100 760 Output Total 450 50 300 Balance 350 50 460 Intake, Oral 800 100 760 Number 1 1 2 Bowel Movements Output, Urine 450 50 300 Physical Exam General Appearance: Alert, Oriented X3, Cooperative Cardiovascular: Regular Rate, Normal S1, Normal S2 Lungs: Clear to Auscultation, Normal Air Movement Abdomen: Normal Bowel Sounds, Soft, No Tenderness Extremities: No Clubbing, No Cyanosis, No Edema Current Medications: Current Medications Sig/Chirag Start time Last Medication Dose Route Stop Time Status Admin Cefuroxime Sodium 250 MG Q12 06/17 1000 AC 06/17 PO 0850 Enoxaparin Sodium 30 MG DAILY 06/15 1100 AC 06/17 SC 0849 Olanzapine 2.5 MG DAILY 06/16 1000 DC 06/17 PO 0850 Olanzapine 2.5 MG Q8P PRN 06/13 1515 AC PO Patient Medication 1 ED .STK-MED ONE 06/17 1335 ME Teaching ED 06/17 1336 Polyethylene Glycol 17 GM DAILY 06/13 1130 DC 06/17 PO 0850 Senna/Docusate Sodium 1 TAB BID 06/13 1130 DC 06/17 PO 0850 Tamsulosin HCl 0.4 MG 1700 06/05 1700 AC 06/17 PO 1639 Thiamine HCl 100 MG DAILY 06/14 1356 AC 06/17 PO 06/22 1001 0850 Last 24 Hrs of Lab/Wilner Results Last 24 Hrs of Labs/Mics: Laboratory Tests 06/17/16 0645: Anion Gap 10, Estimated GFR 57 L, BUN/Creatinine Ratio 29.2 H, Magnesium 2.2, CBC w Diff NO MAN DIFF REQ, RBC 3.16 L, MCV 100.6 H, MCH 34.2 H, RDW 15.2 H, MPV 8.0, Gran % 65.1, Lymphocytes % 18.1 L, Monocytes % 7.2, Eosinophils % 9.3 H, Basophils % 0.3, Absolute Granulocytes 4.6, Absolute Lymphocytes 1.3, Absolute Monocytes 0.5, Absolute Eosinophils 0.7, Absolute Basophils 0, PUBS MCHC 34.0 Assessment/Plan Assessment: This is a 85-year-old male with past medical history of CAD status post TX, TIA, hypertension, congestive heart failure, hyperlipidemia, AAA status post surgery and stent placement, questionable lung nodule, presents with chief complaint of mechanical fall. Vitals creatinine 1.4, hemoglobin 11.9, platelets 152, white count 7.4 EKG does not show any acute findings. We'll admit the patient to general med floor and monitor for the following: EKG done today QTC was normal, as per scheduled zyprexa has been d/c, another EKG scheduled for tommorow if QTC remains normal, patient can be discharged , PEC form in the chart would need to be signed by on-call attending. Delirium: Patient has been combative and delirious, continues to be confused, due to prolonged QTc we have not been able to give him Haldol or Seroquel on regular basis. EKG daily along with lites monitoring. Attending physician a discussion with the daughter, daughter remains fully aware of the adverse effects of Seroquel and that it will only provide symptomatically relief . She still wants her dad to be on Seroquel overdose for which have already been placed. We'll also get neurology input on his current confusion and delirium and combative behavior. Etiology unclear, reversible dementia w/u -, no infectious cause, he has been afebrile, white count stable. All benzodiazepines and all narcotics discontinued. Ceftriaxone discontinued as UCx (06/03) NGTD. Reorient patient frequently.Supervise patient while eating. Will maintain Fall precautions. * Zyprexa every 8 when necessary for agitations (scheduled zyprexa d/c as per recomendations) * discontinued lasix, tylenol, lipitor, seroquel. continued senna, miralax, coreg, and flomax. * started lovenox 30 , continue for next 3 weeks * no narcotics * Urine cx showed GNR, started on ceftin, to complete a 5 days course. Urinary retention: Patient has history of urethral stricture and urinary retention and BPH.he was retaining more than 400 amounts of urine and was initially started on straight Protocol followed by Granado catheter. Urinary retention was thought to be secondary to anesthesia for ORIF. Urology was consulted, patient on Flomax,Granado catheter removed, patient had successful voiding trials, urine output adequate. Remains on straight cath protocol if needed. Hip fracture status post ORIF: MRI hip showed acute fracture of the right greater trochanter with partial intertrochanteric extension anticomplement of the fracture extending longitudinally through The collarbone into the proximal femoral diaphysis. He is status post RF patient tolerating regular diet well, PT has recommended discharge to short-term rehabilitation. DVT prophylaxis with lovenox. History of TX/HTN/HLD: Will continue carvedilol 12.5 mg twice a day Spironolactone(TO BE CONTINUED UPON DISCHARGE) and isosorbide on hold Lasix 20 mg daily, Lipitor 40 mg daily on hold Pain management with Tylenol. Regular diet Patient is DNR/DNI Problem List: 1. Fracture of greater trochanter of right femur Pain Ratin Pain Location: rt hip Pain Goal: Remain pain free Pain Plan: none Tomorrow's Labs & Rationales: bep for lytes monitoring Magnesium
[2016-06-18 00:02] VITALS: BP 120/70
[2016-06-18 01:11] VITALS: BP 138/72
[2016-06-18 08:07] VITALS: BP 126/60
--- NOTE | 2016-06-18 08:08 | PN- Att Addend ---
Attending Addendum Attending Brief Note Current Medications Sig/Chirag Start time Last Medication Dose Route Stop Time Status Admin Atorvastatin Calcium 40 MG 1700 06/18 1700 AC PO Carvedilol 12.5 MG BID 06/18 0100 AC 06/18 PO 0111 Cefuroxime Sodium 250 MG Q12 06/17 1000 AC 06/17 PO 2111 Clopidogrel Bisulfate 75 MG DAILY 06/18 1000 AC PO Enoxaparin Sodium 30 MG DAILY 06/15 1100 AC 06/17 SC 0849 Furosemide 20 MG DAILY 06/18 1000 AC PO Isosorbide 30 MG DAILY 06/18 1000 AC Mononitrate PO Olanzapine 2.5 MG DAILY 06/16 1000 DC 06/17 PO 0850 Olanzapine 2.5 MG Q8P PRN 06/13 1515 AC PO Patient Medication 1 ED .STK-MED ONE 06/17 1335 NE Teaching ED 06/17 1336 Polyethylene Glycol 17 GM DAILY 06/13 1130 DC 06/17 PO 0850 Senna/Docusate Sodium 1 TAB BID 06/13 1130 DC 06/17 PO 0850 Spironolactone 25 MG DAILY 06/18 1000 AC PO Tamsulosin HCl 0.4 MG 1700 06/05 1700 AC 06/17 PO 1639 Thiamine HCl 100 MG DAILY 06/14 1356 AC 06/17 PO 06/22 1001 0850 Laboratory Tests 06/18 0654 Chemistry Sodium (137 - 145 mmol/L) 140 Potassium (3.5 - 5.1 mmol/L) 4.3 Chloride (98 - 107 mmol/L) 102 Carbon Dioxide (22 - 30 mmol/L) 29 Anion Gap (5 - 16) 9 BUN (9 - 20 mg/dL) 34 H Creatinine (0.7 - 1.2 mg/dL) 1.2 Estimated GFR (>60 ml/min) 57 L BUN/Creatinine Ratio (7 - 25 %) 28.3 H Magnesium (1.6 - 2.3 mg/dL) 2.2 Vital Signs Date Time Temp Pulse Resp B/P Pulse O2 O2 Flow FiO2 Ox Delivery Rate 06/18 110 138/72 06/18 110 138/72 06/18 0002 97.9 66 20 120/70 97 Room Air 06/17 1658 98.0 58 20 118/78 96 Room Air 06/17 1600 Room Air Room Air 06/17 0853 98.1 69 20 126/58 95 Room Air Intake & Output 06/18 1600 06/18 0800 06/18 0000 Intake Total 560 Output Total 200 200 Balance -200 360 Intake, Oral 560 Output, Urine 200 200 Covering attending note. Patient is comfortable sitting out of bed to chair awake alert and cooperative. No complaints at all No discomfort in the right hip. S1-S2 is normal Lungs are clear Minimal tenderness in the right hip. EKG shows the QT of 491 seconds Assessment Fracture hip patient is stable Patient to be discharged to [facility].
--- NOTE | 2016-06-18 08:59 | PN- Housestaff ---
Subjective Follow-up For: hip fx s/p surgery ORIF Subjective: Pt seen & examined.lying in bed in no acute distress, remains afebrile, no repeat episodes of agitation. no other complains. He could not be discharged today because patient's current condition does not qualify for admission to [facility]. Patient will be discharged to geripsychiatric unit on Monday. Review of Systems Constitutional: Reports: see HPI. Objective Last 24 Hrs of Vital Signs/I&O Vital Signs Date Time Temp Pulse Resp B/P Pulse O2 O2 Flow FiO2 Ox Delivery Rate 06/18 806 97.6 64 20 126/60 96 Room Air 06/18 0111 138/72 06/18 0111 138/72 06/18 0002 97.9 66 20 120/70 97 Room Air 06/17 1658 98.0 58 20 118/78 96 Room Air 06/17 1600 Room Air Room Air Intake & Output 06/18 1600 06/18 0800 06/18 0000 Intake Total 560 Output Total 500 200 Balance -500 360 Intake, Oral 560 Output, Urine 500 200 Physical Exam General Appearance: Alert, Oriented X3, Cooperative, No Acute Distress Other Physical Findings: Cardiovascular: Regular Rate, Normal S1, Normal S2 Lungs: Clear to Auscultation, Normal Air Movement Abdomen: Normal Bowel Sounds, Soft, No Tenderness Extremities: No Clubbing, No Cyanosis, No Edema Current Medications: Current Medications Sig/Chirag Start time Last Medication Dose Route Stop Time Status Admin Atorvastatin Calcium 40 MG 1700 06/18 1700 AC PO Carvedilol 12.5 MG BID 06/18 0100 AC 06/18 PO 0111 Cefuroxime Sodium 250 MG Q12 06/17 1000 AC 06/17 PO 2111 Clopidogrel Bisulfate 75 MG DAILY 06/18 1000 AC PO Enoxaparin Sodium 30 MG DAILY 06/15 1100 AC 06/17 SC 0849 Furosemide 20 MG DAILY 06/18 1000 AC PO Isosorbide 30 MG DAILY 06/18 1000 AC Mononitrate PO Olanzapine 2.5 MG DAILY 06/16 1000 DC 06/17 PO 0850 Olanzapine 2.5 MG Q8P PRN 06/13 1515 AC PO Patient Medication 1 ED .STK-MED ONE 06/17 1335 DC Teaching ED 06/17 1336 Polyethylene Glycol 17 GM DAILY 06/13 1130 DC 06/17 PO 0850 Senna/Docusate Sodium 1 TAB BID 06/13 1130 DC 06/17 PO 0850 Spironolactone 25 MG DAILY 06/18 1000 AC PO Tamsulosin HCl 0.4 MG 1700 06/05 1700 AC 06/17 PO 1639 Thiamine HCl 100 MG DAILY 06/14 1356 AC 06/17 PO 06/22 1001 0850 Last 24 Hrs of Lab/Wilner Results Last 24 Hrs of Labs/Mics: Laboratory Tests 06/18/16 0654: Anion Gap 9, Estimated GFR 57 L, BUN/Creatinine Ratio 28.3 H, Magnesium 2.2 Assessment/Plan Assessment: This is a 85-year-old male with past medical history of CAD status post MD, TIA, hypertension, congestive heart failure, hyperlipidemia, AAA status post surgery and stent placement, questionable lung nodule, presents with chief complaint of mechanical fall. Vitals creatinine 1.4, hemoglobin 11.9, platelets 152, white count 7.4 EKG does not show any acute findings. We'll admit the patient to general med floor and monitor for the following: Delirium: Patient has been combative and delirious, continues to be confused, due to prolonged QTc we have not been able to give him Haldol or Seroquel on regular basis. EKG daily along with lites monitoring. Attending physician a discussion with the daughter, daughter remains fully aware of the adverse effects of Seroquel and that it will only provide symptomatically relief . She still wants her dad to be on Seroquel overdose for which have already been placed. We'll also get neurology input on his current confusion and delirium and combative behavior. Etiology unclear, reversible dementia w/u -, no infectious cause, he has been afebrile, white count stable. All benzodiazepines and all narcotics discontinued. Ceftriaxone discontinued as UCx (06/03) NGTD. Reorient patient frequently.Supervise patient while eating. Will maintain Fall precautions. * Discontinue Zyprexa as per Dr. Dill (QTc slightly increased to 490s this morning) * discontinued lasix, tylenol, lipitor, seroquel. continued senna, miralax, coreg, and flomax. * Cont lovenox 30 , continue for next 3 weeks * no narcotics * Urine cx showed GNR, started on ceftin, to complete a 5 days course. Urinary retention: Patient has history of urethral stricture and urinary retention and BPH.he was retaining more than 400 amounts of urine and was initially started on straight Protocol followed by Granado catheter. Urinary retention was thought to be secondary to anesthesia for ORIF. Urology was consulted, patient on Flomax,Granado catheter removed, patient had successful voiding trials, urine output adequate. Remains on straight cath protocol if needed. Hip fracture status post ORIF: MRI hip showed acute fracture of the right greater trochanter with partial intertrochanteric extension anticomplement of the fracture extending longitudinally through The collarbone into the proximal femoral diaphysis. He is status post RF patient tolerating regular diet well, PT has recommended discharge to short-term rehabilitation. DVT prophylaxis with lovenox. History of MD/HTN/HLD: Will continue carvedilol 12.5 mg twice a day Spironolactone(TO BE CONTINUED UPON DISCHARGE) and isosorbide on hold Lasix 20 mg daily, Lipitor 40 mg daily on hold Pain management with Tylenol. Regular diet Patient is DNR/DNI Problem List: 1. Fracture of greater trochanter of right femur 2. Pulmonary nodules 3. Abdominal aortic aneurysm 4. Closed right hip fracture 5. Delirium 6. Status post hip surgery Pain Ratin Pain Location: Right Hip Pain Goal: Remain pain free Pain Plan: Mild pathway Tomorrow's Labs & Rationales: bep for lytes monitoring Magnesium Magnesium
[2016-06-18 16:14] VITALS: BP 118/64
[2016-06-18 23:54] VITALS: BP 110/62
--- NOTE | 2016-06-19 08:02 | PN- Att Addend ---
Attending Addendum Attending Brief Note Covering attending note. Patient is comfortable awake alert cooperative no complaints at all. He is walking with a walker Intake & Output 06/19 1600 06/19 0000 Intake Total 1000 Output Total 275 750 Balance -275 250 Intake, Oral 1000 Output, Urine 275 750 Current Medications Sig/Chirag Start time Last Medication Dose Route Stop Time Status Admin Atorvastatin Calcium 40 MG 1700 06/18 1700 AC 06/18 PO 2013 Carvedilol 12.5 MG BID 06/18 0100 AC 06/18 PO 2014 Cefuroxime Sodium 250 MG Q12 06/17 1000 AC 06/18 PO 2013 Clopidogrel Bisulfate 75 MG DAILY 06/18 1000 AC 06/18 PO 1102 Enoxaparin Sodium 30 MG DAILY 06/15 1100 AC 06/18 SC 1102 Furosemide 20 MG DAILY 06/18 1000 AC 06/18 PO 1103 Isosorbide 30 MG DAILY 06/18 1000 AC 06/18 Mononitrate PO 1103 Olanzapine 2.5 MG Q8P PRN 06/13 1515 AC PO Spironolactone 25 MG DAILY 06/18 1000 AC 06/18 PO 1102 Tamsulosin HCl 0.4 MG 1700 06/05 1700 AC 06/18 PO 2014 Thiamine HCl 100 MG DAILY 06/14 1356 AC 06/18 PO 06/22 1001 1102 Vital Signs Date Time Temp Pulse Resp B/P Pulse O2 O2 Flow FiO2 Ox Delivery Rate 06/18 2354 97.9 50 18 110/62 95 Room Air 06/18 1614 97.6 54 18 118/64 96 Room Air 06/18 1103 68 06/18 1102 68 06/18 0807 97.6 64 20 126/60 96 Room Air Intake & Output 06/19 1600 06/19 0000 Intake Total 1000 Output Total 275 750 Balance -275 250 Intake, Oral 1000 Output, Urine 275 750 Assessment Status post fracture ambulation with physical therapy apparently patient is waiting for a bed at [facility].. Forms are ready and signed
[2016-06-19 08:49] VITALS: BP 118/62
--- NOTE | 2016-06-19 09:02 | PN- Housestaff ---
Subjective Follow-up For: hip fx s/p surgery ORIF Subjective: Patient seen and examined this morning. He was sitting in bed in no acute distress. Patient still waiting bed availability at [facility]. Otherwise stable vitals in the normal range. Review of Systems Constitutional: Denies: chills, fever. Cardiovascular: Denies: chest pain, palpitations. Respiratory: Denies: cough, short of breath. Gastrointestinal: Denies: abdominal pain, constipation, diarrhea, nausea, vomiting. Objective Last 24 Hrs of Vital Signs/I&O Vital Signs Date Time Temp Pulse Resp B/P Pulse O2 O2 Flow FiO2 Ox Delivery Rate 06/19 0849 97.5 58 20 118/62 95 Room Air 06/18 2354 97.9 50 18 110/62 95 Room Air 06/18 1614 97.6 54 18 118/64 96 Room Air 06/18 1103 68 06/18 1102 68 Intake & Output 06/19 1600 06/19 0800 06/19 0000 Intake Total 1000 Output Total 275 750 Balance -275 250 Intake, Oral 1000 Output, Urine 275 750 Physical Exam General Appearance: Alert, Oriented X3, Cooperative, No Acute Distress Cardiovascular: Regular Rate, Normal S1, Normal S2, systolic murmur Lungs: Clear to Auscultation, Normal Air Movement Abdomen: Normal Bowel Sounds, Soft, No Tenderness Extremities: No Clubbing, No Cyanosis, No Edema Current Medications: Current Medications Sig/Chirag Start time Last Medication Dose Route Stop Time Status Admin Atorvastatin Calcium 40 MG 1700 06/18 1700 AC 06/18 PO 2013 Carvedilol 12.5 MG BID 06/18 0100 AC 06/19 PO 0846 Cefuroxime Sodium 250 MG Q12 06/17 1000 AC 06/19 PO 0846 Clopidogrel Bisulfate 75 MG DAILY 06/18 1000 AC 06/19 PO 0847 Enoxaparin Sodium 30 MG DAILY 06/15 1100 AC 06/19 SC 0848 Furosemide 20 MG DAILY 06/18 1000 AC 06/19 PO 0847 Isosorbide 30 MG DAILY 06/18 1000 AC 06/19 Mononitrate PO 0846 Olanzapine 2.5 MG Q8P PRN 06/13 1515 AC PO Spironolactone 25 MG DAILY 06/18 1000 AC 06/19 PO 46 Tamsulosin HCl 0.4 MG 1700 06/05 1700 AC 06/18 PO 2013 Thiamine HCl 100 MG DAILY 06/14 1356 AC 06/19 PO 06/22 1001 0868 Assessment/Plan Assessment: This is a 85-year-old male with past medical history of CAD status post CT, TIA, hypertension, congestive heart failure, hyperlipidemia, AAA status post surgery and stent placement, questionable lung nodule, presents with chief complaint of mechanical fall. Vitals creatinine 1.4, hemoglobin 11.9, platelets 152, white count 7.4 EKG does not show any acute findings. We'll admit the patient to general med floor and monitor for the following: Delirium: Patient has been combative and delirious, continues to be confused, due to prolonged QTc we have not been able to give him Haldol or Seroquel on regular basis. EKG daily along with lites monitoring. Attending physician a discussion with the daughter, daughter remains fully aware of the adverse effects of Seroquel and that it will only provide symptomatically relief . She still wants her dad to be on Seroquel overdose for which have already been placed. We'll also get neurology input on his current confusion and delirium and combative behavior. Etiology unclear, reversible dementia w/u -, no infectious cause, he has been afebrile, white count stable. All benzodiazepines and all narcotics discontinued. Ceftriaxone discontinued as UCx (06/03) NGTD. Reorient patient frequently.Supervise patient while eating. Will maintain Fall precautions. * Discontinue Zyprexa as per Dr. Dill (QTc slightly increased to 490s yesterday morning) * discontinued lasix, tylenol, lipitor, seroquel. continued senna, miralax, coreg, and flomax. * Cont lovenox 30 , continue for next 3 weeks * no narcotics * Urine cx showed GNR, started on ceftin, to complete a 5 days course. Urinary retention: Patient has history of urethral stricture and urinary retention and BPH.he was retaining more than 400 amounts of urine and was initially started on straight Protocol followed by Granado catheter. Urinary retention was thought to be secondary to anesthesia for ORIF. Urology was consulted, patient on Flomax,Granado catheter removed, patient had successful voiding trials, urine output adequate. Remains on straight cath protocol if needed. Hip fracture status post ORIF: MRI hip showed acute fracture of the right greater trochanter with partial intertrochanteric extension anticomplement of the fracture extending longitudinally through The collarbone into the proximal femoral diaphysis. He is status post RF patient tolerating regular diet well, PT has recommended discharge to short-term rehabilitation. DVT prophylaxis with lovenox. History of CT/HTN/HLD: Will continue carvedilol 12.5 mg twice a day Spironolactone(TO BE CONTINUED UPON DISCHARGE) and isosorbide on hold Lasix 20 mg daily, Lipitor 40 mg daily on hold Pain management with Tylenol. Regular diet Patient is DNR/DNI Problem List: 1. Fracture of greater trochanter of right femur 2. Status post hip surgery Pain Ratin Pain Location: None Pain Goal: Remain pain free Pain Plan: None Tomorrow's Labs & Rationales: None
[2016-06-19 16:41] VITALS: BP 112/58
[2016-06-20 00:10] VITALS: BP 106/58
--- NOTE | 2016-06-20 07:36 | PN- Housestaff ---
Subjective Follow-up For: hip fx s/p surgery ORIF Subjective: Patient seen and examined this morning. He was lying in bed in no acute distress. Afebrile otherwise is within normal limits. He is waiting bed availability at [facility]. Review of Systems Constitutional: Denies: chills, fever. Cardiovascular: Denies: chest pain, palpitations. Respiratory: Denies: cough, short of breath. Gastrointestinal: Denies: abdominal pain, constipation, diarrhea, nausea, vomiting. Objective Last 24 Hrs of Vital Signs/I&O Vital Signs Date Time Temp Pulse Resp B/P Pulse O2 O2 Flow FiO2 Ox Delivery Rate 06/20 1814 53 112/58 06/20 1610 97.9 53 20 112 94 06/20 1557 96 Room Air Room Air 06/20 1525 Room Air 2.0L 06/20 1232 98.0 63 20 112/58 06/20 1011 63 112/58 06/20 1010 63 112/58 06/20 0917 98.8 63 20 112 95 Room Air 06/20 0800 Room Air Room Air 06/20 0010 97.9 60 20 106/58 98 Room Air Intake & Output 06/20 1600 06/20 0800 06/20 0000 Intake Total 556 390 4381 Output Total 450 150 350 Balance 150 150 650 Intake, Oral 463 066 8894 Number 1 1 Bowel Movements Output, Urine 450 150 350 Physical Exam General Appearance: Alert, Oriented X3, Cooperative, No Acute Distress Cardiovascular: Regular Rate, Normal S1, Normal S2 Lungs: Clear to Auscultation, Normal Air Movement Abdomen: Normal Bowel Sounds, Soft, No Tenderness Extremities: No Clubbing, No Cyanosis, No Edema Current Medications: Current Medications Sig/Chirag Start time Last Medication Dose Route Stop Time Status Admin Atorvastatin Calcium 40 MG 1700 06/18 1700 AC 06/20 PO 1814 Benzonatate 100 MG BID 06/19 1148 AC 06/20 PO 1011 Carvedilol 12.5 MG BID 06/18 0100 AC 06/20 PO 1011 Cefuroxime Sodium 250 MG Q12 06/17 1000 AC 06/20 PO 1010 Clopidogrel Bisulfate 75 MG DAILY 06/18 1000 AC 06/20 PO 1011 Enoxaparin Sodium 30 MG DAILY 06/15 1100 AC 06/20 SC 1011 Furosemide 20 MG 06/22 1000 AC PO Furosemide 20 MG DAILY 06/18 1000 DC 06/20 PO 1011 Isosorbide 30 MG DAILY 06/18 1000 AC 06/20 Mononitrate PO 1010 Olanzapine 2.5 MG Q8P PRN 06/13 1515 AC PO Patient Medication 1 ED .STK-MED ONE 06/20 1348 DC Teaching ED 06/20 1349 Spironolactone 25 MG DAILY 06/18 1000 AC 06/20 PO 1010 Tamsulosin HCl 0.4 MG 1700 06/05 1700 AC 06/20 PO 1814 Thiamine HCl 100 MG DAILY 06/14 1356 AC 06/20 PO 06/22 1001 1011 Assessment/Plan Assessment: This is a 85-year-old male with past medical history of CAD status post SD, TIA, hypertension, congestive heart failure, hyperlipidemia, AAA status post surgery and stent placement, questionable lung nodule, presents with chief complaint of mechanical fall. Vitals creatinine 1.4, hemoglobin 11.9, platelets 152, white count 7.4 EKG does not show any acute findings. We'll admit the patient to general med floor and monitor for the following: Delirium: Patient has been combative and delirious, continues to be confused, due to prolonged QTc we have not been able to give him Haldol or Seroquel on regular basis. EKG daily along with lites monitoring. Attending physician a discussion with the daughter, daughter remains fully aware of the adverse effects of Seroquel and that it will only provide symptomatically relief . She still wants her dad to be on Seroquel overdose for which have already been placed. We'll also get neurology input on his current confusion and delirium and combative behavior. Etiology unclear, reversible dementia w/u -, no infectious cause, he has been afebrile, white count stable. All benzodiazepines and all narcotics discontinued. Ceftriaxone discontinued as UCx (06/03) NGTD. Reorient patient frequently.Supervise patient while eating. Will maintain Fall precautions. * Zyprexa 2.5mg prn. * discontinued lasix, tylenol, lipitor, seroquel. continued senna, miralax, coreg, and flomax. * Cont lovenox 30 , continue for next 3 weeks * no narcotics * Urine cx showed GNR, started on ceftin, to complete a 5 days course. Urinary retention: Patient has history of urethral stricture and urinary retention and BPH.he was retaining more than 400 amounts of urine and was initially started on straight Protocol followed by Granado catheter. Urinary retention was thought to be secondary to anesthesia for ORIF. Urology was consulted, patient on Flomax,Granado catheter removed, patient had successful voiding trials, urine output adequate. Remains on straight cath protocol if needed. Hip fracture status post ORIF: MRI hip showed acute fracture of the right greater trochanter with partial intertrochanteric extension anticomplement of the fracture extending longitudinally through The collarbone into the proximal femoral diaphysis. He is status post RF patient tolerating regular diet well, PT has recommended discharge to short-term rehabilitation. DVT prophylaxis with lovenox. History of SD/HTN/HLD: Will continue carvedilol 12.5 mg twice a day Spironolactone(TO BE CONTINUED UPON DISCHARGE) and isosorbide on hold Lasix 20 mg daily, Lipitor 40 mg daily on hold Pain management with Tylenol. Regular diet Patient is DNR/DNI Problem List: 1. Fracture of greater trochanter of right femur Pain Ratin Pain Location: none Pain Goal: Remain pain free Pain Plan: none Tomorrow's Labs & Rationales: none
[2016-06-20 09:17] VITALS: BP 112/58
--- NOTE | 2016-06-20 10:40 | PN- Pulmonary ---
Subjective HPI/Critical Care Issues: Doing better No sig delirium this am QTC stable Objective Current Medications: Current Medications Sig/Chirag Start time Last Medication Dose Route Stop Time Status Admin Atorvastatin Calcium 40 MG 1700 06/18 1700 AC 06/19 PO 1644 Benzonatate 100 MG BID 06/19 1148 AC 06/20 PO 1011 Carvedilol 12.5 MG BID 06/18 0100 AC 06/20 PO 1011 Cefuroxime Sodium 250 MG Q12 06/17 1000 AC 06/20 PO 1010 Clopidogrel Bisulfate 75 MG DAILY 06/18 1000 AC 06/20 PO 1011 Enoxaparin Sodium 30 MG DAILY 06/15 1100 AC 06/20 SC 1011 Furosemide 20 MG DAILY 06/18 1000 AC 06/20 PO 1011 Isosorbide 30 MG DAILY 06/18 1000 AC 06/20 Mononitrate PO 1010 Olanzapine 2.5 MG Q8P PRN 06/13 1515 AC PO Spironolactone 25 MG DAILY 06/18 1000 AC 06/20 PO 1010 Tamsulosin HCl 0.4 MG 1700 06/05 1700 AC 06/19 PO 1644 Thiamine HCl 100 MG DAILY 06/14 1356 AC 06/20 PO 06/22 1001 1011 Vital Signs & I&O Last 24 Hrs of Vitals and I&O: Vital Signs Date Time Temp Pulse Resp B/P Pulse O2 O2 Flow FiO2 Ox Delivery Rate 06/20 1011 63 112/58 06/20 1010 63 112/58 06/20 0917 98.8 63 20 112/58 95 Room Air 06/20 0010 97.9 60 20 106/58 98 Room Air 06/19 1644 55 112/85 06/19 1641 97.3 55 17 112/58 95 Room Air Intake & Output 06/20 1600 06/20 0800 06/20 0000 Intake Total 300 1000 Output Total 150 350 Balance 150 650 Intake, Oral 300 1000 Number 1 Bowel Movements Output, Urine 150 350 Impression/Plan Impression/Plan Impression/Plan: General: sleepy Cardiac: RRR, s1s2 Pulmonary: Bilateral lung sounds clear to auscutation Abdomen: Non-tender, non-distended Extremities: Moves all extremities, distal sensate intact. SKin warm and well perfused. Calves soft and non-tender, dp pulses palpable bilaterally. Surgical site: Stable IMPRESSION This is a gentleman with chronic kidney disease, previous ischemic heart disease with previous SC, hyperlipidemia, peripheral vascular disease, previous AAA repair, who is on clopidogrel for antiplatelet therapy for peripheral vascular disease, hypertension hyperlipidemia now here with a hip fracture s/p surg on His issues include REsolving delirium due to multiple other factors, Stable qtc (previously Due to prolonged qtc atypical antipsycotics cannot be used safely but as a last resort we are using this and family agrees to rx with these meds aswell as they wish more of symptomatic care), Has not required any meds lately Resolved Urinary retention stable s/p holden now on flomax and holden removed and pt is urinating ok, but has proteus colonization vs uti ( Urology following from before) Resolved Pain in the surg site resolved, now off all narcotics for more than a week Postop constipation resolved Mild cognitive impairment which is being worked up before with CT scan and 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 NO sig etoh history discussed with son again today REC Ok to dc Start lasix 20 mg Monday Cont ceftin 250 bid prob for five days Reorientation rx, patient should be placed in a different networks software consultant [employer]irdre and he should be sitting out in the hallway during the day. Give lovenox 30 mg daily Can dd today Patient would benefit from a [facility] unit Ambulate and reorientation rx Discussed with daughter in person today
[2016-06-20 12:32] VITALS: BP 112/58
[2016-06-20] MEDS ORDERED: CEFUROXIME250 M1 PO (15:10)
[2016-06-20 16:10] VITALS: BP 112/58
--- NOTE | 2016-06-20 18:53 | PN- Psychiatry ---
Assessment/Plan Impression: The patient is an 86-year-old male who originally presented to the hospital on 05/30/2016 after a fall, in which she sustained a right hip fracture, now repaired. He had been delirious through similar 5 visits, possibly due to postanesthesia reaction and possibly due to opiate pain medications. When we revisited him last 06/17/2016, he was exhibiting confusion, had exhibited owning, and our feeling was that the patient would benefit from transfer to a geriatric psychiatry unit. However, the patient's mentation is much clearer today, and his daughter reports that he is at his baseline, and that he has not been exhibiting impulsiveness today. His daughter reports that he knows that he needs to press the nursing call button if he wants to use the toilet. There has been no report from nursing about confusion, and I've asked that the patient be observed overnight, and if no further agitation or confusion is noted , the patient will probably be ready to transfer to a short-term rehabilitation. Suggestion: 1. Please avoid delirium triggers, such as benzodiazepines, opiate pain medications, medications with strong anticholinergic properties, constipation, or unnecessary nighttime awakenings. Please cluster nursing interventions, so the patient may have as much uninterrupted sleep as possible. 2. You may continue the order for olanzapine 2.5 mg PO up to 3 times per day as needed, for agitation. We note that the patient has not required a dose of this medication since sometime last week. a. EKG must show no arrhythmia, and QTC less than or equal to 475 ms. b. Hold this medication if oversedated. c. Monitor and replete electrolytes, in particular magnesium and potassium to the upper portion of the normal range. Hypomagnesemia is associated with TdP. Thank you for asking us to participate in [facility]. We do not expect to have further visits with the patient. Please reconsult if other psychiatric matters arise. Micah Hopkins APRN, pager [phone]. Subjective Subjective: The patient is sitting calmly in his chair by his bed. He is pleasant and engages in conversation. His supportive daughter is present, and the patient agrees to allow her to remain during this examination. He is alert and oriented. He denies auditory or visual hallucinations, and presents no suyapa delusions. He reports that he feels safe here, and denies paranoid ideation. He reports current depressive symptoms as 1-2/10, anxiety 1-2/10; 10/10 would be the most severe. He denies suicidal or homicidal ideation. Folstein/MMSE conducted today with a score of 25/30, suggestive of no cognitive impairment. The patient had one letter wrong spelling "WORLD" backwards. He was able to recall one of the 3 objects. He was unable to write a short original sentence, and unable to copy the polygon design. He was able to draw the hands of a clock indicating 1:45, but without the numbers.
[2016-06-21 00:41] VITALS: BP 110/80
[2016-06-21] MEDS ORDERED: LOVENOX30 MG/0.1 SC (07:34)
[2016-06-21] MEDS ORDERED: VITAMIN D31000 UNI2 PO (07:35)
[2016-06-21 08:58] VITALS: BP 130/68
--- NOTE | 2016-06-21 11:54 | PN- Housestaff ---
Subjective Follow-up For: Hip fracture status post ORIF Subjective: Patient seen examined this morning. He was lying comfortably in bed in no acute distress, he has been afebrile other vitals remained within normal limits. No additional planes Review of Systems Constitutional: Denies: chills, fever. Cardiovascular: Denies: chest pain, palpitations. Respiratory: Denies: cough, sputum production. Gastrointestinal: Denies: abdominal pain, constipation, diarrhea, nausea, vomiting. Genitourinary: Denies: dysuria, frequency. Objective Last 24 Hrs of Vital Signs/I&O Vital Signs Date Time Temp Pulse Resp B/P Pulse O2 O2 Flow FiO2 Ox Delivery Rate 06/21 0858 97.5 56 18 130/68 96 Room Air 06/21 0854 58 140/70 06/21 0853 58 140/70 06/21 0041 98.5 54 18 110/80 96 Room Air 06/21 0000 96 Room Air 06/20 2143 57 122/70 06/20 1814 53 112/58 06/20 1610 97.9 53 20 112/58 94 06/20 1557 96 Room Air Room Air 06/20 1525 Room Air 2.0L 06/20 1232 98.0 63 20 112/58 Intake & Output 06/21 1600 06/21 0800 06/21 0000 Intake Total 540 Output Total 150 625 250 Balance -150 -625 290 Intake, Oral 540 Output, Urine 150 625 250 Physical Exam General Appearance: Alert, Oriented X3, Cooperative, No Acute Distress Cardiovascular: Regular Rate, Normal S1, Normal S2, systolic murmur Lungs: Clear to Auscultation, Normal Air Movement Abdomen: Normal Bowel Sounds, Soft, No Tenderness Extremities: No Clubbing, No Cyanosis, No Edema Current Medications: Current Medications Sig/Chirag Start time Last Medication Dose Route Stop Time Status Admin Atorvastatin Calcium 40 MG 1700 06/18 1700 AC 06/20 PO 1814 Benzonatate 100 MG BID 06/19 1148 AC 06/21 PO 0853 Carvedilol 12.5 MG BID 06/18 0100 AC 06/21 PO 0853 Cefuroxime Sodium 250 MG Q12 06/17 1000 DC 06/21 PO 0854 Clopidogrel Bisulfate 75 MG DAILY 06/18 1000 DC 06/21 PO 0853 Enoxaparin Sodium 30 MG DAILY 06/15 1100 AC 06/21 SC 0854 Furosemide 20 MG 06/22 1000 AC PO Furosemide 20 MG DAILY 06/18 1000 DC 06/20 PO 1011 Isosorbide 30 MG DAILY 06/18 1000 AC 06/21 Mononitrate PO 0854 Olanzapine 2.5 MG Q8P PRN 06/13 1515 AC PO Patient Medication 1 ED .K-MED ONE 06/20 1348 DC Teaching ED 06/20 1349 Spironolactone 25 MG DAILY 06/18 1000 AC 06/21 PO 0854 Tamsulosin HCl 0.4 MG 1700 06/05 1700 AC 06/20 PO 1814 Thiamine HCl 100 MG DAILY 06/14 1356 AC 06/21 PO 06/22 1001 0853 Assessment/Plan Assessment: This is a 85-year-old male with past medical history of CAD status post [place], TIA, hypertension, congestive heart failure, hyperlipidemia, AAA status post surgery and stent placement, questionable lung nodule, presents with chief complaint of mechanical fall. Vitals creatinine 1.4, hemoglobin 11.9, platelets 152, white count 7.4 EKG does not show any acute findings. We'll admit the patient to general med floor and monitor for the following: Delirium: Patient has been combative and delirious, continues to be confused, due to prolonged QTc we have not been able to give him Haldol or Seroquel on regular basis. EKG daily along with lites monitoring. Attending physician a discussion with the daughter, daughter remains fully aware of the adverse effects of Seroquel and that it will only provide symptomatically relief . She still wants her dad to be on Seroquel overdose for which have already been placed. We'll also get neurology input on his current confusion and delirium and combative behavior. Etiology unclear, reversible dementia w/u -, no infectious cause, he has been afebrile, white count stable. All benzodiazepines and all narcotics discontinued. Ceftriaxone discontinued as UCx (06/03) NGTD. Reorient patient frequently.Supervise patient while eating. Will maintain Fall precautions. * Zyprexa 2.5mg prn. * discontinued lasix, tylenol, lipitor, seroquel. continued senna, miralax, coreg, and flomax. * Cont lovenox 30 , continue for next 3 weeks * no narcotics * Urine cx showed GNR, started on ceftin, to complete a 5 days course. Urinary retention: Patient has history of urethral stricture and urinary retention and BPH.he was retaining more than 400 amounts of urine and was initially started on straight Protocol followed by Granado catheter. Urinary retention was thought to be secondary to anesthesia for ORIF. Urology was consulted, patient on Flomax,Granado catheter removed, patient had successful voiding trials, urine output adequate. Hip fracture status post ORIF: MRI hip showed acute fracture of the right greater trochanter with partial intertrochanteric extension anticomplement of the fracture extending longitudinally through The collarbone into the proximal femoral diaphysis. He is status post RF patient tolerating regular diet well, PT has recommended discharge to short-term rehabilitation. DVT prophylaxis with lovenox, plavix on hold will resume after lovenox finished History of [place]/HTN/HLD: Will continue carvedilol 6.25 mg twice a day [id number], isosorbide on hold Lasix 20 mg daily, Lipitor 40 mg daily on hold Pain management with Tylenol. Regular diet Patient is DNR/DNI Problem List: 1. Fracture of greater trochanter of right femur Pain Ratin Pain Location: none Pain Goal: Remain pain free Pain Plan: none Tomorrow's Labs & Rationales: none
--- NOTE | 2016-06-21 12:19 | PN- Pulmonary ---
Subjective HPI/Critical Care Issues: Doing well No sig confusion Stable Awaiting bed to str Objective Current Medications: Current Medications Sig/Chirag Start time Last Medication Dose Route Stop Time Status Admin Atorvastatin Calcium 40 MG 1700 06/18 1700 AC 06/20 PO 1814 Benzonatate 100 MG BID 06/19 1148 AC 06/21 PO 0853 Carvedilol 12.5 MG BID 06/18 0100 AC 06/21 PO 0853 Cefuroxime Sodium 250 MG Q12 06/17 1000 DC 06/21 PO 0854 Clopidogrel Bisulfate 75 MG DAILY 06/18 1000 DC 06/21 PO 0853 Enoxaparin Sodium 30 MG DAILY 06/15 1100 AC 06/21 SC 0854 Furosemide 20 MG 06/22 1000 AC PO Furosemide 20 MG DAILY 06/18 1000 DC 06/20 PO 1011 Isosorbide 30 MG DAILY 06/18 1000 AC 06/21 Mononitrate PO 0854 Olanzapine 2.5 MG Q8P PRN 06/13 1515 AC PO Patient Medication 1 ED .STK-MED ONE 06/20 1348 DE Teaching ED 06/20 1349 Spironolactone 25 MG DAILY 06/18 1000 AC 06/21 PO 0854 Tamsulosin HCl 0.4 MG 1700 06/05 1700 AC 06/20 PO 1814 Thiamine HCl 100 MG DAILY 06/14 1356 AC 06/21 PO 06/22 1001 0853 Vital Signs & I&O Last 24 Hrs of Vitals and I&O: Vital Signs Date Time Temp Pulse Resp B/P Pulse O2 O2 Flow FiO2 Ox Delivery Rate 06/21 0858 97.5 56 18 130/68 96 Room Air 06/21 0854 58 140/70 06/21 0853 58 140/70 06/21 0041 98.5 54 18 110/80 96 Room Air 06/21 0000 96 Room Air 06/20 2143 57 122/70 06/20 1814 53 112/58 06/20 1610 97.9 53 20 112/58 94 06/20 1557 96 Room Air Room Air 06/20 1525 Room Air 2.0L 06/20 1232 98.0 63 20 112/58 Intake & Output 06/21 1600 06/21 0800 06/21 0000 Intake Total 540 Output Total 150 625 250 Balance -150 -625 290 Intake, Oral 540 Output, Urine 150 625 250 Impression/Plan Impression/Plan Impression/Plan: General: sleepy Cardiac: RRR, s1s2 Pulmonary: Bilateral lung sounds clear to auscutation Abdomen: Non-tender, non-distended Extremities: Moves all extremities, distal sensate intact. SKin warm and well perfused. Calves soft and non-tender, dp pulses palpable bilaterally. Surgical site: Stable IMPRESSION This is a gentleman with chronic kidney disease, previous ischemic heart disease with previous ID, hyperlipidemia, peripheral vascular disease, previous AAA repair, who is on clopidogrel for antiplatelet therapy for peripheral vascular disease, hypertension hyperlipidemia now here with a hip fracture s/p surg on His issues include REsolving delirium due to multiple other factors, Stable qtc (previously Due to prolonged qtc atypical antipsycotics cannot be used safely but as a last resort we are using this and family agrees to rx with these meds aswell as they wish more of symptomatic care), Has not required any meds lately Resolved Urinary retention stable s/p holden now on flomax and holden removed and pt is urinating ok, but has proteus colonization vs uti ( Urology following from before) Resolved Pain in the surg site resolved, now off all narcotics for more than a week Postop constipation resolved Mild cognitive impairment which is being worked up before with CT scan and 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 NO sig etoh history discussed with son again today REC Ok to dc to get str as he has improved and back to baseline Reorientation rx, patient should be placed Ambulate and reorientation rx Discussed with daughter in person yesterday Discharge meds * Lovenox 30 mg daily till 07/13/2016 * Lasix 20 mg Monday and Monday * Atorvastatin 40 mg daily * Coreg 6.25 mg twice a day, hold for blood pressure less than 100 systolic, can increase the dose to 12.5 mg twice a day if the blood pressure is more than 120 systolic consistently * Olanzapine 2.5 mg every 8 hours only as needed if there is severe confusion * Flomax 0.4 milligrams daily at bedtime * Spironolactone 12.5 mg daily * Start Plavix 75 mg from 07/13/16
--- NOTE | 2016-06-21 12:20 | PN- Orthopedic ---
See Addendum Surgical Brief Attending Note Brief Attending Note: Patient fairly comfortable sitting in chair. He states he's been walking around stations. His effusion is definitely improved. He answers questions appropriately from the past as well as current. Status post ORIF right hip fracture Patient has been hospitalized due to continued confusion/delirium. Patient is ready to have his simi removed. I last the surgical PA to come by when he is back in bed to have these removed
[2016-06-21 16:28] VITALS: BP 104/52
[2016-06-21 23:40] VITALS: BP 124/66
[2016-06-22 07:12] VITALS: BP 124/62
[2016-06-22] MEDS ORDERED: ALDACTONE25 MG PO (07:20)
[2016-06-22] MEDS ORDERED: FLOMAX0.4 M1 PO (07:20)
[2016-06-22] MEDS ORDERED: OLANZAPINE2.5 M1 PO (07:20)
[2016-06-22] MEDS ORDERED: FUROSEMIDE20 M1 PO (07:20)
[2016-06-22] MEDS ORDERED: LOVENOX30 MG/0.1 SC (07:20)
[2016-06-22] MEDS ORDERED: COREG3.125 MG PO (07:20)
--- NOTE | 2016-06-22 08:53 | PN- Housestaff ---
Subjective Follow-up For: Hip surgery status post ORIF Subjective: Patient seen and examined this morning. He was lying comfortably in bed in no acute distress. He has been afebrile, which is within normal limits. He is awaiting bed availability at [facility] Review of Systems Constitutional: Denies: chills, fever. Cardiovascular: Denies: chest pain, palpitations. Respiratory: Denies: cough, short of breath, sputum production. Gastrointestinal: Denies: abdominal pain, constipation, diarrhea, nausea, vomiting. Genitourinary: Denies: dysuria, frequency. Objective Last 24 Hrs of Vital Signs/I&O Vital Signs Date Time Temp Pulse Resp B/P Pulse O2 O2 Flow FiO2 Ox Delivery Rate 06/22 1025 Room Air 2.0L 06/22 0852 110/60 06/22 0712 98.1 65 18 124/62 96 Room Air 06/21 2340 97.6 57 18 124/66 98 Room Air 06/21 2114 61 118/78 06/21 1816 57 104/52 Intake & Output 06/22 1600 06/22 0800 06/22 0000 Intake Total 600 400 750 Output Total 400 Balance 600 400 350 Intake, IV 0 Intake, Oral 600 400 750 Output, Urine 400 Physical Exam General Appearance: Alert, Oriented X3, Cooperative, No Acute Distress Cardiovascular: Regular Rate, Normal S1, Normal S2, No Murmurs Lungs: Clear to Auscultation, Normal Air Movement Abdomen: Normal Bowel Sounds, Soft, No Tenderness Current Medications: Current Medications Sig/Chirag Start time Last Medication Dose Route Stop Time Status Admin Atorvastatin Calcium 40 MG 1700 06/18 1700 DCD 06/21 PO 1802 Benzonatate 100 MG BID 06/19 1148 DC 06/22 PO 0852 Carvedilol 6.25 MG BID 06/21 2200 DCD 06/22 PO 0852 Enoxaparin Sodium 30 MG DAILY 06/15 1100 DCD 06/22 SC 0853 Furosemide 20 MG 06/22 1000 DCD 06/22 PO 0852 Guaifenesin 600 MG .STK-MED ONE 06/22 0038 DC PO 06/22 0039 Guaifenesin 600 MG ONCE ONE 06/21 2200 DC 06/22 PO 06/21 220 0042 Olanzapine 2.5 MG Q8P PRN 06/13 1515 DCD PO Patient Medication 1 ED .K-MED ONE 06/22 1339 IA Teaching ED 06/22 1340 Spironolactone 12.5 MG DAILY 06/22 1000 DCD 06/22 PO 0852 Tamsulosin HCl 0.4 MG 1700 06/05 1700 DCD 06/20 PO 1814 Thiamine HCl 100 MG DAILY 06/14 1356 DC 06/22 PO 06/22 1001 0852 Last 24 Hrs of Lab/Wilner Results Last 24 Hrs of Labs/Mics: Laboratory Tests 06/22/16 0748: Magnesium 2.2 Assessment/Plan Assessment: This is a 85-year-old male with past medical history of CAD status post [place], TIA, hypertension, congestive heart failure, hyperlipidemia, AAA status post surgery and stent placement, questionable lung nodule, presents with chief complaint of mechanical fall. Vitals creatinine 1.4, hemoglobin 11.9, platelets 152, white count 7.4 EKG does not show any acute findings. We'll admit the patient to general med floor and monitor for the following: Delirium: Patient has been combative and delirious, continues to be confused, due to prolonged QTc we have not been able to give him Haldol or Seroquel on regular basis. EKG daily along with lites monitoring. Attending physician a discussion with the daughter, daughter remains fully aware of the adverse effects of Seroquel and that it will only provide symptomatically relief . She still wants her dad to be on Seroquel overdose for which have already been placed. We'll also get neurology input on his current confusion and delirium and combative behavior. Etiology unclear, reversible dementia w/u -, no infectious cause, he has been afebrile, white count stable. All benzodiazepines and all narcotics discontinued. Ceftriaxone discontinued as UCx (06/03) NGTD. Reorient patient frequently.Supervise patient while eating. Will maintain Fall precautions. * Zyprexa 2.5mg prn. * discontinued lasix, tylenol, lipitor, seroquel. continued senna, miralax, coreg, and flomax. * Cont lovenox 30 , continue for next 3 weeks * no narcotics * Urine cx showed Proteus mirabilis, completed 5 day course of Ceftin Urinary retention: Patient has history of urethral stricture and urinary retention and BPH.he was retaining more than 400 amounts of urine and was initially started on straight Protocol followed by Granado catheter. Urinary retention was thought to be secondary to anesthesia for ORIF. Urology was consulted, patient on Flomax,Granado catheter removed, patient had successful voiding trials, urine output adequate. Hip fracture status post ORIF: MRI hip showed acute fracture of the right greater trochanter with partial intertrochanteric extension anticomplement of the fracture extending longitudinally through The collarbone into the proximal femoral diaphysis. He is status post RF patient tolerating regular diet well, PT has recommended discharge to short-term rehabilitation. DVT prophylaxis with lovenox, plavix on hold will resume after lovenox finished History of [place]/HTN/HLD: Will continue carvedilol 6.25 mg twice a day [id number], Lasix 20 mg Monday, Lipitor 40 mg daily Pain management with Tylenol. Regular diet Patient is DNR/DNI Problem List: 1. Status post hip surgery Pain Ratin Pain Location: None Pain Goal: Remain pain free Pain Plan: None Tomorrow's Labs & Rationales: None patient for discharge
--- NOTE | 2016-06-22 10:39 | PN- Pulmonary ---
Subjective HPI/Critical Care Issues: Little confused this am Now back to base line Afebrile Does not have any urinary symptoms Objective Current Medications: Current Medications Sig/Chirag Start time Last Medication Dose Route Stop Time Status Admin Atorvastatin Calcium 40 MG 1700 06/18 1700 AC 06/21 PO 1802 Benzonatate 100 MG BID 06/19 1148 AC 06/22 PO 0852 Carvedilol 6.25 MG BID 06/21 2200 AC 06/22 PO 0852 Carvedilol 12.5 MG BID 06/18 0100 DC 06/21 PO 0853 Clopidogrel Bisulfate 75 MG DAILY 06/18 1000 DC 06/21 PO 0853 Enoxaparin Sodium 30 MG DAILY 06/15 1100 AC 06/22 SC 0853 Furosemide 20 MG 06/22 1000 AC 06/22 PO 0852 Guaifenesin 600 MG .STK-MED ONE 06/22 0038 DC PO 06/22 0039 Guaifenesin 600 MG ONCE ONE 06/210 DC 06/22 PO 06/21 2201 0042 Isosorbide 30 MG DAILY 06/18 1000 DC 06/21 Mononitrate PO 0854 Olanzapine 2.5 MG Q8P PRN 06/13 1515 AC PO Spironolactone 12.5 MG DAILY 06/22 1000 AC 06/22 PO 0852 Spironolactone 25 MG DAILY 06/18 1000 DC 06/21 PO 0854 Tamsulosin HCl 0.4 MG 1700 06/05 1700 AC 06/20 PO 1814 Thiamine HCl 100 MG DAILY 06/14 1356 DC 06/22 PO 06/22 1001 0852 Vital Signs & I&O Last 24 Hrs of Vitals and I&O: Vital Signs Date Time Temp Pulse Resp B/P Pulse O2 O2 Flow FiO2 Ox Delivery Rate 06/22 1025 Room Air 2.0L 06/22 0852 110/60 06/22 07 98.1 65 18 124/62 96 Room Air 06/21 2340 97.6 57 18 124/66 98 Room Air 06/21 2114 61 118/78 06/21 1816 57 104/52 06/21 1628 97.5 57 20 104/52 95 Intake & Output 06/22 1600 06/22 0800 06/22 0000 Intake Total 400 750 Output Total 400 Balance 400 350 Intake, Oral 400 750 Output, Urine 400 Laboratory Tests 06/22 0748 Chemistry Magnesium (1.6 - 2.3 mg/dL) 2.2 Impression/Plan Impression/Plan Impression/Plan: General: sleepy Cardiac: RRR, s1s2 Pulmonary: Bilateral lung sounds clear to auscutation Abdomen: Non-tender, non-distended Extremities: Moves all extremities, distal sensate intact. SKin warm and well perfused. Calves soft and non-tender, dp pulses palpable bilaterally. Surgical site: Stable IMPRESSION This is a gentleman with chronic kidney disease, previous ischemic heart disease with previous [place], hyperlipidemia, peripheral vascular disease, previous AAA repair, who is on clopidogrel for antiplatelet therapy for peripheral vascular disease, hypertension hyperlipidemia now here with a hip fracture s/p surg on His issues include REsolving delirium due to multiple other factors, Stable qtc (previously Due to prolonged qtc atypical antipsycotics cannot be used safely but as a last resort we are using this and family agrees to rx with these meds aswell as they wish more of symptomatic care), Has not required any meds lately Resolved Urinary retention stable s/p holden now on flomax and holden removed and pt is urinating ok, but has proteus colonization vs uti ( Urology following from before) Resolved Pain in the surg site resolved, now off all narcotics for more than a week Postop constipation resolved Mild cognitive impairment which is being worked up before with CT scan and 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 NO sig etoh history discussed with son again today REC Ok to dc to get str as he has improved and back to baseline Reorientation rx, patient should be placed Ambulate and reorientation rx DC benzonatate Discharge meds * Lovenox 30 mg daily till 07/13/2016 * Lasix 20 mg Monday and Monday * Atorvastatin 40 mg daily * Coreg 6.25 mg twice a day, hold for blood pressure less than 100 systolic, can increase the dose to 12.5 mg twice a day if the blood pressure is more than 120 systolic consistently * Olanzapine 2.5 mg every 8 hours only as needed if there is severe confusion * Flomax 0.4 milligrams daily at bedtime * Spironolactone 12.5 mg daily * Start Plavix 75 mg from 07/13/16
== END 2016-06-22 14:47 | DRG 480 ==
LOC: ERH 09:53 → 2NB 13:48 → ENPENDDIS 13:48 → ERHI 13:48 → 2NB 15:37
PROVIDERS: Dermatology; Internal Medicine; Physician Assistant; Physician Assistant Surgical; Radiology Diagnostic Radiology; Student in an Organized Health Care Education/Training Program; ADMIT Internal Medicine Pulmonary Disease
PROC: 0QS604Z Reposition Right Upper Femur with Internal Fixation Device, Open Approach (ICD-10-PCS; principal; 2016-05-30)
DX: S72.091A Other fracture of head and neck of right femur, initial encounter for closed fracture (principal); G93.40 Encephalopathy, unspecified; F05 Delirium due to known physiological condition; I13.0 Hypertensive heart and chronic kidney disease with heart failure and stage 1 through stage 4 chronic kidney disease, or unspecified chronic kidney disease; I50.9 Heart failure, unspecified; W17.89XA Other fall from one level to another, initial encounter; Y92.007 Garden or yard of unspecified non-institutional (private) residence as the place of occurrence of the external cause; N18.9 Chronic kidney disease, unspecified; E78.5 Hyperlipidemia, unspecified; N40.1 Benign prostatic hyperplasia with lower urinary tract symptoms; R33.8 Other retention of urine; I73.9 Peripheral vascular disease, unspecified; I25.9 Chronic ischemic heart disease, unspecified
CPT/HCPCS: 2NBP; 2NBSP; 75615; 86618; 36415; 73030-RT; 73501; 73502-RT; 81001; 82436; 87040; 87086; 93005; 93010; 96374; 96375; 97001-GP; 97110-GO; 97116-GO; 97530-GO; 99232; 99233; J0131; J0690; J0696; J1630; J1644; J1650; J1940; J2270; J3490; J7042

== ENCOUNTER 2016-07-05 14:19 | Inpatient (IN) | payer OTHER ==
[~2016-07-05] VITALS: Ht 170.2 cm; Wt 73.0 kg
[~2016-07-05 14:19] MED LIST: ALDACTONE25 MG PO; ATORVASTATIN CA40 M1 PO; CARVEDILOL12.5 M1 PO; CEFUROXIME250 M1 PO; CLOPIDOGREL75 M1 PO; COREG3.125 MG PO; COUMADIN2.5 M1 PO; FLOMAX0.4 M1 PO; FUROSEMIDE20 M1 PO; ISOSORBIDE MONO30 M1 PO; LOVENOX30 MG/0.1 SC; OLANZAPINE2.5 M1 PO; SPIRONOLACTONE25 M1 PO; VITAMIN B-121000 MC3 PO; VITAMIN D31000 UNI2 PO; ZYPREXA2.5 M1 PO
--- NOTE | 2016-07-05 14:29 | ED MVC/FALL/TRAUMA COMPLAINT ---
History of Present Illness General Chief Complaint: Fall Stated Complaint: MULTIPLE FALLS FROM SNF, LAC TO R EYEBROW, ON THIN Source: patient Exam Limitations: no limitations Vital Signs & Intake/Output Vital Signs & Intake/Output Vital Signs Date Time Temp Pulse Resp B/P Pulse O2 O2 Flow FiO2 Ox Delivery Rate 07/06 0230 98.7 94 19 112/72 92 Nasal 1.0L Cannula 07/05 2347 102.2 82 22 129/88 92 Nasal 2.0L Cannula 07/05 2334 99.8 07/05 2316 99.8 86 18 91 Nasal 2.0L Cannula 07/052 Nasal 2.0L Cannula 07/05 2018 98.4 72 18 143/69 94 Room Air 07/05 1838 Nasal 2.0L Cannula 07/05 1802 97.0 58 16 116/56 93 Nasal 2.0L Cannula 07/05 1639 96 Nasal 2.0L Cannula 07/05 1550 98.6 68 18 123/61 96 Nasal 2.0L Cannula 07/05 1425 97.9 75 18 121/88 95 Room Air ED Intake and Output 07/06 0000 07/05 1200 Intake Total 1310 Output Total 250 Balance 1060 Intake, IV 1250 Intake, Oral 60 Output, Urine 250 Allergies Coded Allergies: oxycodone (From PERCOCET) (HALLUCINATIONS 05/30/16) Reconcile Medications Acetaminophen (Acephen) 650 MG SUPP.RECT 1 SUPP IL Q6H PRN PAIN/TEMP>101 ( Reported) Acetaminophen (Tylenol) 325 MG TABLET 2 TAB PO Q6H PRN PAIN/TEMP>101 ( Reported) Atorvastatin Calcium 40 MG TABLET 1 TAB PO DAILY CHOLESTEROL (Reported) Bisacodyl (Dulcolax) 10 MG SUPP.RECT 1 SUP RC DAILY PRN CONSTIPATION ( Reported) Carvedilol (Coreg) 3.125 MG TABLET 6.25 MG PO BID BLOOD PRESSURE Cholecalciferol (Vitamin D3) 1,000 UNIT TABLET 1 TAB PO DAILY bone strength ( Reported) Cyanocobalamin (Vitamin B-12) 1,000 MCG TABLET 1 TAB PO DAILY SUPPLEMENT ( Reported) Enoxaparin Sodium (Lovenox) 30 MG/0.3 ML SYRINGE 30 MG SC DAILY anticoagulation Furosemide 20 MG TABLET 1 TAB PO Monday [facility] Guaifenesin (Kimber-Tussin) 100 MG/5 ML LIQUID 10 ML PO Q6H UNKNOWN (Reported) Ipratropium/Albuterol Sulfate (Iprat-Albut 0.5-3(2.5) MG/3 Ml) 0.5 MG-3 MG (2.5 MG BASE)/3 ML AMPUL.NEB 3 ML INH Q8H PRN SOB/WHEEZE (Reported) Magnesium Hydroxide (Milk Of Magnesia) 400 MG/5 ML ORAL.SUSP 30 ML PO Q3D GI (Reported) Na Phos,M-B/Na Phos,Di-Ba (Fleet Enema) 19 GRAM-7 GRAM/118 ML ENEMA 1 E RC DAILY PRN CONSTIPATION (Reported) Olanzapine 2.5 MG TABLET 1 TAB PO Q8P PRN AGITATION Spironolactone (Aldactone) 25 MG TABLET 1 TAB PO DAILY [facility] Tamsulosin HCl (Flomax) 0.4 MG CAP.ER.24H 1 TAB PO 1700 BPH Triage Nurses Notes Reviewed? yes Onset: Gradual Duration: day(s): (1) Timing: no prior history Severity: moderate Injuries/Fall Location: head, lower extremity Method of Injury: fall Loss of Consciousness: unsure HPI: Patient is an 86-year-old male presenting to the emergency department with chief complaint of multiple falls, increasing confusion over the past 1-2 days. Per [facility] patient has had multiple falls, unwitnessed with head contusion and laceration. Patient is on blood thinner at nighttime. Patient reports pain in the left shoulder. Unsure if he hit his shoulder with a fall. Patient does report that he's had frequent falls, cannot tell me the circumstances for which she had a pulse. Unsure if he became dizzy or lightheaded prior to the fall. Denies any shortness of breath or chest pain but does report that he's had an intermittent productive cough worsening over the past several days. Unsure about fevers or chills. Per [facility] and MANAGER QA at [facility] patient has been increasingly sleepy. They performed a chest x-ray 2 days ago which was negative , and urine culture was negative. Patient is currently receiving occupational therapy and physical therapy several times a week. (VICENET COHEN,EVE) Past History Travel History Traveled to [place] past 21 day No Medical History Any Pertinent Medical History? see below for history Neurological: CVA EENT: NONE Cardiovascular: hypertension, hyperlipidemia, myocardial infarction, peripheral vascular disease Respiratory: pulmonary nodule? 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 No (EVE SALAZAR) Review of Systems Review of Systems Constitutional: Reports: malaise, weakness. Comments Review of systems: See HPI, All other systems negative. Constitutional, no chills fever or weight loss HEENT: No visual changes no sore throat no congestion Cardiovascular: No chest pain ,palpitation , orthopnea or ankle swelling Skin, no jaundice no rashes Respiratory: No dyspnea OR hemoptysis GI: No nausea no vomiting : No dysuria No hematuria Muscle skeletal: no back pain, no neck pain, Neurologic: No numbness Psych: No stress anxiety or depression,. Heme/endocrine: ON BLOOD THINNERS Immunology: No splenectomy or history of AIDS (EVE SALAZAR) Physical Exam Physical Exam General Appearance: no apparent distress, thin, FATIGUED Comments: THIN person in no acute distress HEENT: extraocular motion intact, no nystagmus. Pupils equally round and reactive to light and accommodation. Nose is atraumatic. External auditory canal and Tympanic membranes clear. Pharynx normal. No swelling or edema. Superficial abrasion to the right eyebrow, tenderness palpation over the right orbit. Small purulent discharge at the medial canthi bilaterally. Neck: Supple, no lymphadenopathy, normal range of motion without pain or tenderness, no C-spine tenderness. Back: Nontender Cardiovascular: Regular rate and rhythms no murmurs rubs or gallops, normal JVP Respiratory: Chest nontender. No respiratory distress. scattered rhonchi to auscultation bilaterally Abdomen: Soft, nontender nondistended, no appreciable organomegaly. Normal bowel sounds. No ascites Extremity: No edema, no calf tenderness to palpation, normal and equal pulses. Neuro: Arousable with verbal and tactile stimuli, able to answer some questions appropriately, unable to follow fULL neuro exam. Skin: Superficial abrasion approximately 2-3 cm noted on the right lateral orbit , no active bleeding. Steri-Strips in place. No surrounding edema. Psych: Mood and affect is normal, memory and judgment is normal. Core Measures ACS in differential dx? Yes Severe Sepsis Present: No Septic Shock Present: No (VICENTE COHEN,EVE) Progress Differential Diagnosis: uti, PNEUMONIA, INTRACRANIAL HEMORRHAGE, cva, MULTIFACTORIAL GAIT DISORDER, ELECTROLYTE ABNORMALITY, DEHYDRATION, ACUTE KIDNEY INJURY Plan of Care: Orders Procedure Date/time Status CBC WITHOUT DIFFERENTIAL 07/07 06 Active BASIC ELECTROLYTES PLUS BUN&CR 07/07 06 Active Heart Healthy Diet 07/06 B Active LOWER RESPIRATORY CULTURE 07/06 0949 Active RT: Evaluation 07/06 0934 Active EKG 07/06 07 Active CBC WITHOUT DIFFERENTIAL 07/06 06 Active BASIC ELECTROLYTES PLUS BUN&CR 07/06 06 Complete Vital Signs 07/06 0154 Active Teach/Educate 07/06 0154 Active Nutritional Intake, Monitor 07/06 0154 Active Isolation 07/06 0154 Active Intake & Output 07/06 0154 Active Patient Care Conference 07/06 0154 Active Activity/Ambulation 07/06 0154 Active Code Status 07/06 0136 Active RAPID VIRAL INFLUENZA A 07/06 0130 Active STREP PNEUMO URINARY ANTIGEN 07/06 0130 Complete LEGIONELLA URINARY ANTIGEN 07/06 0130 Complete XRY-CHEST XRAY, PA AND LATERAL 07/06 UNK Active Therapeutic Activities 07/06 UNK Complete PT EVAL MOD COMPLEX 30 MIN 07/06 UNK Complete Neuromuscular Re-ed 07/06 UNK Complete Patient Safety Monitor 07/06 UNK Active PT Evaluate & Treat 07/05 2157 Active Pathway - chart 07/05 2157 Active House Staff 07/05 2157 Active Code Status 07/05 2157 Complete Patient Data 07/05 2004 Active BLOOD CULTURE 07/05 1814 Active OXYGEN SETUP (GEN) 07/05 1729 Active Saline Lock 07/05 1729 Active Admit to inpatient 07/05 1729 Active Vital Signs 07/05 1729 Complete Activity/Ambulation 07/05 1729 Active Code Status 07/05 1729 Complete MISTAKE 07/05 1435 Active Telemetry/Application Security Architect 07/05 1435 Complete URINALYSIS 07/05 1435 Complete TROPONIN LEVEL 07/05 1435 Complete PARTIAL THROMBOPLASTIN TIME 07/05 1435 Complete PROTHROMBIN TIME 07/05 1435 Complete COMPREHENSIVE METABOLIC PANEL 07/05 1435 Complete CBC WITHOUT DIFFERENTIAL 07/05 143 Complete EKG 07/05 1435 Active Intake & Output 07/05 1430 Complete TRC EVALUATION (GEN) 07/05 UNK Active VTE Mechanical Prophylaxis 07/05 UNK Active Vital Signs 07/05 UNK Active Intake & Output 07/05 UNK Active Current Medications Sig/Chirag Start time Last Medication Dose Stop Time Status Admin Atorvastatin Calcium 40 MG 1700 07/06 1700 AC (Lipitor) Tamsulosin HCl 0.4 MG 1700 07/06 1700 AC (Flomax) Azithromycin 500 MG DAILY 07/06 1000 CAN (Zithromax) Dextrose/Water 250 ML (D5W) Carvedilol 6.25 MG BID 07/06 1000 AC (Coreg) Ceftriaxone Sodium 2,000 MG DAILY 07/06 1000 CAN (Rocephin) Cholecalciferol 1,000 IU DAILY 07/06 1000 AC (Vitamin D) Cyanocobalamin 1,000 MCG DAILY 07/06 1000 AC (Vitamin B12) Enoxaparin Sodium 30 MG DAILY 07/06 1000 AC (Lovenox) Sodium Chloride 1,000 ML Q13H 07/06 1000 AC (Normal Saline 0.9%) Vancomycin HCl 1,000 MG DAILY 07/06 1000 AC Dextrose/Water 250 ML (D5W) Paricalcitol 5 MCG ONCE ONE 07/06 0300 CAN (Zemplar Inj. 5MCG/ 07/06 0301 Ml) Olanzapine 2.5 MG Q8P PRN 07/05 2330 AC (Zyprexa 2.5MG) Laboratory Tests 07/06/16 0610: Anion Gap 9, Estimated GFR 48 L, BUN/Creatinine Ratio 21.4, CBC w Diff MAN DIFF ORDERED, RBC 2.92 L, MCV 100.2 H, MCH 33.8 H, RDW 15.4 H, MPV 8.1, Gran % 91.7 H, Lymphocytes % 3.4 L, Monocytes % 4.4, Eosinophils % 0.4, Basophils % 0.1, Absolute Granulocytes 13.8 H, Segmented Neutrophils Pending, Absolute Lymphocytes 0.5 L, Absolute Monocytes 0.7 H, Absolute Eosinophils 0.1, Absolute Basophils 0, PUBS MCHC 33.7 07/05/16 1930: Urine Color YEL, Urine Clarity HAZY H, Urine pH 8.5 H, Ur Specific [place] 1.010, Urine Protein 30 H, Urine Ketones NEG, Urine Nitrite NEG, Urine Bilirubin NEG, Urine Urobilinogen 2.0 H, Ur Leukocyte Esterase LARGE H, Ur Microscopic SEDIMENT EXAMINED, Urine RBC 5-10 H, Urine WBC 10-15 H, Ur Epithelial Cells FEW, Hyaline Casts RARE H, Urine Hemoglobin SMALL H, Urine Glucose NEG 07/05/16 1511: Anion Gap 7, Estimated GFR 44 L, BUN/Creatinine Ratio 20.7, Glucose 107 H, Calcium 9.2, Total Bilirubin 0.9, AST 26, ALT 42, Alkaline Phosphatase 120, Troponin I 0.03, Total Protein 6.1 L, Albumin 3.3 L, Globulin 2.8, Albumin/ Globulin Ratio 1.2, PT 11.7, INR 1.12, APTT 27, CBC w Diff NO MAN DIFF REQ, RBC 3.29 L, MCV 100.9 H, MCH 33.6 H, RDW 15.4 H, MPV 7.5, Gran % 72.8, Lymphocytes % 9.3 L, Monocytes % 8.6, Eosinophils % 9.2 H, Basophils % 0.1, Absolute Granulocytes 7.0 H, Absolute Lymphocytes 0.9 L, Absolute Monocytes 0.8 H, Absolute Eosinophils 0.9, Absolute Basophils 0, PUBS MCHC 33.3 Microbiology 07/06 948 LOWER RESP: Respiratory Culture - ORD 07/06 948 LOWER RESP: Gram Stain - ORD 07/05 1929 URINE ROUT: Legionella Antigen - COMP 07/05 1929 URINE ROUT: Streptococcus pneumoniae Antigen (M - COMP 07/05 1929 BLOOD: Blood Culture - RECD 07/05 1924 BLOOD: Blood Culture - RECD Diagnostic Imaging: Viewed by Me: Radiology Read, CT Scan. Discussed w/RAD: Radiology Read, CT Scan. Radiology Impression: PATIENT: MATTI HACKETT PRESENT AGE: 86 PATIENT ACCOUNT NO: [id number] : 30 LOCATION: [facility] ORDERING PHYSICIAN: EVE COHEN SERVICE DATE: 07/05/16-5126 EXAM TYPE: CAT - CT CERV SPINE WO IV CONTRAST; CT HEAD WO IV CONTRAST; CT MAXILLOFACIAL W/O CON EXAMINATION: CT HEAD WITHOUT CONTRAST CT FACIAL BONES WITHOUT CONTRAST CT CERVICAL SPINE WITHOUT CONTRAST CLINICAL INFORMATION: Fall. Head strike. Pain. COMPARISON: CT head and cervical spine from 05/30/2016. TECHNIQUE: Contiguous axial imaging was performed from the skull base to vertex without intravenous administration of contrast. In addition, helical noncontrast CT imaging was acquired through the cervical spine and facial bones and source images were reviewed along with axial reconstructions and sagittal and coronal MPRs. DLP: 1773 mGy-cm FINDINGS: HEAD: No intracranial mass, hemorrhage, or midline shift is visualized. No extra-axial collections are identified. There is mild to moderate hypoattenuation in the bihemispheric white matter and moderate generalized prominence of the ventricles, sulci, and extra-axial CSF spaces. There is a chronic infarct seen in the high right parietal lobe, and there is a chronic lacune in the left cerebellar hemisphere, stable. No calvarial fractures. The paranasal sinuses and mastoid air cells are clear. The temporal mandibular joints articulate normally. FACIAL BONES: There is no evidence of facial bone fracture. There is moderate mucosal thickening in the ethmoid air cells bilaterally. Mild mucosal thickening in the sphenoid air cells with a retention cyst on the right, and mild mucosal thickening in the maxillary sinuses with aerosolized secretions and small retention cysts bilaterally. The nasal cavity is clear with rightward nasal septal deviation. Secretions are present in the nasopharynx which is otherwise symmetric. No acute orbital abnormalities. There have been bilateral ocular lens extractions. There is periodontal and periapical lucency involving the left maxillary central incisor where there has been prior root canal. CERVICAL SPINE: There is no evidence of acute cervical spine fracture. Vertebral bodies remain normal in height. There is multilevel cervical spondylosis. Grade 1 degenerative retrolisthesis of C5 with respect to both C4 and C6. There is moderate intervertebral disc height loss with endplate spurring and sclerosis at C5-C6 and C6-C7 most notably. There is left greater than right multilevel fairly advanced facet arthropathy. There is resultant fairly high-grade left foraminal stenosis at C2-C3, C3-C4, and C4- C5 and moderate to severe bilateral foraminal stenosis at C5-C6. There is no high-grade canal stenosis visualized; canal stenosis is most notable at C5-C6 where there is a partially calcified disc protrusion resulting in mild narrowing. The atlantoaxial and atlantooccipital articulations are maintained. The occipital condyles are intact. No paraspinal abnormality. No gross abnormality of the visualized pharyngeal or laryngeal contour. Some heterogeneity of the partially imaged thyroid. No cervical adenopathy. IMPRESSION: 1. No acute intracranial process or discrete facial bone fracture. 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 2. No acute cervical spine fracture or traumatic subluxation. Cervical spondylosis as above with asymmetric multilevel high-grade left foraminal stenosis. 3. Scattered inflammatory disease within the paranasal sinuses., PATIENT: MATTI HACKETT PRESENT AGE: 86 PATIENT ACCOUNT NO: [id number] : 30 LOCATION: ER ORDERING PHYSICIAN: EVE COHEN SERVICE DATE: 07/05/16 EXAM TYPE: RAD - XRY- SHOULDER COMPLETE-LEFT EXAMINATION: XR SHOULDER, LEFT CLINICAL INFORMATION: Pain status post fall COMPARISON: None. TECHNIQUE: 2 views of the left shoulder FINDINGS: No evidence of acute fracture or dislocation. The humeral head articulates appropriately with the glenoid. The joint space is not well evaluated on these limited views. The acromioclavicular joint is intact with mild degenerative changes. The visualized lung is clear. IMPRESSION: No acute fracture or dislocation. DICTATED BY: MARIA ELENA MCKEON MD DATE/TIME DICTATED: 07/05/161625 SPRING COILER:JASMIN DATE/TIME TRANSCRIBED:07/05/161625 CONFIDENTIAL, DO NOT COPY WITHOUT APPROPRIATE AUTHORIZATION. <Electronically signed in Other Vendor System> SIGNED BY: MARIA ELENA MCKEON MD 07/05/16 1630 CXR Impression: PATIENT: MATTI HACKETT PRESENT AGE: 86 PATIENT ACCOUNT NO: [id number] : 30 LOCATION: ER ORDERING PHYSICIAN: EVE COHEN SERVICE DATE: 07/05/16 EXAM TYPE: RAD - XRY- PORTABLE CHEST XRAY EXAMINATION: XR PORTABLE CHEST CLINICAL INFORMATION: Cough. COMPARISON: 06/03/2016 TECHNIQUE: Portable view of the chest was obtained. FINDINGS: Cardiac leads overlie the chest. The lungs are well expanded. Streaky left basilar opacity noted. No pleural effusion or pneumothorax. No edema. The cardiomediastinal silhouette is unchanged. IMPRESSION: Streaky left basilar opacity could represent atelectasis or pneumonia. Initial ED EK BPM, NSR Prior EKG: unchanged Comments: On arrival patient medicated with DuoNeb treatment, blood work and blood cultures initiated. Patient appears confused but is still able to answer questions intermittently appropriately. Patient will go for x-ray to rule out pneumonia secondary to scattered rhonchi and cough. Patient is not hypoxic at this time although [facility] records report that his O2 sat has been in the upper 80s and low 90s. Prior to the past week according to the daughter patient has not been on supplemental oxygen. The [facility] performed imaging on his chest and right hip, there were both unremarkable. Urine culture came back negative. Attempts made to sit patient up bedside, unable to sit up bedside with max assist of 1. Spoke with daughter. Informed her of possible pneumonia on chest x-ray, and patient will be admitted for pneumonia, IV antibiotics, pulmonology consult, physical therapy consultation. Daughter is concerned as she does not want her father returning back to the [facility] secondary to frequent falls. She feels that he is not being monitored appropriately. Case management will become involved with discharge planning once patient is ready to go to a facility. Daughter is aware of plan and agreeable. All questions have been answered. Patient resting comfortably at this time. IV vancomycin and ceftazidime ordered for pneumonia secondary to pt coming from [facility] setting. spoke with dr. springer covering for Dr. otto. Patient will be admitted to general medicine for pneumonia, altered mental status, multifactorial gait disorder (EVE SALAZAR) Departure Departure Time of Disposition: 1929 Disposition: STILL A PATIENT Condition: Stable Clinical Impression Primary Impression: Pneumonia Qualifiers: Pneumonia type: due to unspecified organism Laterality: left Lung location: lower lobe of lung Qualified Code: J18.1 - Lobar pneumonia, unspecified organism Secondary Impressions: Altered mental status Qualifiers: Altered mental status type: unspecified Qualified Code: R41.82 - Altered mental status, unspecified Multifactorial gait disorder Referrals: NAY LARSON MD (PCP/Family) Departure Forms: Customer Survey General Discharge Information Admission Note Spoke With: MIRIAM SPRINGER MD Documentation of Exam: Documentation of any treatments & extenuating circumstances including Concerns Regarding Discharge (functional status, medication knowledge or non-compliance, living conditions, etc.) that warrant an admission rather than observation: Patient requiring IV ABX for pneumonia, serial DuoNeb treatments, may need pulmonology consultation, discharge back to the nursing facility at this time would be medically harmful. Patient requiring blood cultures return, physical therapy consultation (EVE SALAZAR) PA/WOOD TYPE CUTTER Co-Sign Statement Statement: ED Attending supervision documentation- x I saw and evaluated the patient. I have also reviewed all the pertinent lab results and diagnostic results. I agree with the findings and the plan of care as documented in the PA's/WOOD TYPE CUTTER's documentation. [] I have reviewed the ED Record and agree with the PA's/WOOD TYPE CUTTER's documentation. [] Additions or exceptions (if any) to the PAs/WOOD TYPE CUTTER's note and plan are summarized below: [] (KEVEN VASQUEZ,BHARGAV)
--- NOTE | 2016-07-05 14:35 | NUR ---
PT PAULIE FROM [facility] FOR FALL. PER EMS, PT FELL THERE ON , MONDAY, MONDAY AND MONDAY. PT COUGHING UPON ARRIVAL AND C/O PAIN IN HIS HEAD. NO LOC PER ECF. PT IS ON LOVENOX QD. PT CALLING OUT HELP ME, HELP ME
[2016-07-05 15:29] LABS: ABSOLUTE BASOPHIL COUNT 0 /CUMM (0.0-0.2); ABSOLUTE EOSINOPHIL COUNT 0.9 /CUMM (0.0-0.7); ABSOLUTE LYMPH COUNT 0.9 /CUMM (1.2-3.4); ABSOLUTE MONOCYTE COUNT 0.8 /CUMM (0.10-0.60); BASOPHIL % 0.1 % (0.0-2.0); EOSINOPHIL % 9.2 % (0-5); GRANULOCYTE % 72.8 % (42.2-75.2); HEMATOCRIT 33.2 % (42-52); MEAN CORPUSCULAR HGB 33.6 PG (27.0-31.0); MEAN CORPUSCULAR HGB CONC 33.3 G/DL (33.0-37.0); MEAN CORPUSCULAR VOLUME 100.9 FL (80.0-94.0); MEAN PLATELET VOLUME 7.5 FL (7.4-10.4); PLATELET COUNT 198 /CUMM (130-400); RBC DISTRIBUTION WIDTH 15.4 % (11.5-14.5); RED BLOOD CELL CT 3.29 /CUMM (4.70-6.10); WHITE BLOOD CELL COUNT 9.6 /CUMM (4.8-10.8)
[2016-07-05 15:31] LABS: PT 11.7 SEC (9.4-12.5); PTT 27 SEC (25-37)
--- NOTE | 2016-07-05 15:31 | CT SCAN REPORT ---
EXAMINATION: CT HEAD WITHOUT CONTRAST CT FACIAL BONES WITHOUT CONTRAST CT CERVICAL SPINE WITHOUT CONTRAST CLINICAL INFORMATION: Fall. Head strike. Pain. COMPARISON: CT head and cervical spine from 05/30/2016. TECHNIQUE: Contiguous axial imaging was performed from the skull base to vertex without intravenous administration of contrast. In addition, helical noncontrast CT imaging was acquired through the cervical spine and facial bones and source images were reviewed along with axial reconstructions and sagittal and coronal MPRs. DLP: 1773 mGy-cm FINDINGS: HEAD: No intracranial mass, hemorrhage, or midline shift is visualized. No extra-axial collections are identified. There is mild to moderate hypoattenuation in the bihemispheric white matter and moderate generalized prominence of the ventricles, sulci, and extra-axial CSF spaces. There is a chronic infarct seen in the high right parietal lobe, and there is a chronic lacune in the left cerebellar hemisphere, stable. No calvarial fractures. The paranasal sinuses and mastoid air cells are clear. The temporal mandibular joints articulate normally. FACIAL BONES: There is no evidence of facial bone fracture. There is moderate mucosal thickening in the ethmoid air cells bilaterally. Mild mucosal thickening in the sphenoid air cells with a retention cyst on the right, and mild mucosal thickening in the maxillary sinuses with aerosolized secretions and small retention cysts bilaterally. The nasal cavity is clear with rightward nasal septal deviation. Secretions are present in the nasopharynx which is otherwise symmetric. No acute orbital abnormalities. There have been bilateral ocular lens extractions. There is periodontal and periapical lucency involving the left maxillary central incisor where there has been prior root canal. CERVICAL SPINE: There is no evidence of acute cervical spine fracture. Vertebral bodies remain normal in height. There is multilevel cervical spondylosis. Grade 1 degenerative retrolisthesis of C5 with respect to both C4 and C6. There is moderate intervertebral disc height loss with endplate spurring and sclerosis at C5-C6 and C6-C7 most notably. There is left greater than right multilevel fairly advanced facet arthropathy. There is resultant fairly high-grade left foraminal stenosis at C2-C3, C3-C4, and C4-C5 and moderate to severe bilateral foraminal stenosis at C5-C6. There is no high-grade canal stenosis visualized; canal stenosis is most notable at C5-C6 where there is a partially calcified disc protrusion resulting in mild narrowing. The atlantoaxial and atlantooccipital articulations are maintained. The occipital condyles are intact. No paraspinal abnormality. No gross abnormality of the visualized pharyngeal or laryngeal contour. Some heterogeneity of the partially imaged thyroid. No cervical adenopathy. IMPRESSION: 1. No acute intracranial process or discrete facial bone fracture. 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 2. No acute cervical spine fracture or traumatic subluxation. Cervical spondylosis as above with asymmetric multilevel high-grade left foraminal stenosis. 3. Scattered inflammatory disease within the paranasal sinuses.
--- NOTE | 2016-07-05 15:54 | NUR ---
ASSUMED CARE OF PT. PT LETHARGIC, KEEPING EYES CLOSED. RESPONDING TO VOICE AND NOXIOUS STIMULI BUT KEEPING EYES CLOSED, MUMBLING RESPONSES TO QUESTIONS. COMPLAINING OF HEAD ACHE AND TIGHTNESS IN WAIST. PLACED ON MANAGING ATTORNEY AND IS IN SINUS RHYTHM WITH RATE 60.. O2 SAT ON ROOM AIR 89%. PLACED ON 2 LITERS WITH SATS RISING TO 96%.
--- NOTE | 2016-07-05 15:56 | NUR ---
ATTEMPTED TO PERFORM ORTHOSTATIC VITALS. PT REQUIRED 2 PERSON ASSIST TO SIT ON EDGE OF BED. COULD NOT SIT UP INDEPENDENTLY. UNABLE TO STAND WITHOUT 2 PERSON ASSIST. COULD NOT OBTAIN STANDING BLOOD PRESSURE DUE TO NEED TO HOLD ON TO ARMS TO KEEP PT STANDING.
--- NOTE | 2016-07-05 15:56 | NUR ---
DTR REPORTS THAT PT WAS ABLE TO WALK APPROX 100 FEET WITH ASSIST AND USE OF ASSISTIVE DEVISE AT REHAB
--- NOTE | 2016-07-05 16:13 | NUR ---
RT NOTIFIED OF ORDERS FOR NEB TX. PT WITH MILD EXP WHEEZE. NO ACUTE SOB
--- NOTE | 2016-07-05 16:29 | RADIOLOGY REPORT ---
EXAMINATION: XR PORTABLE CHEST CLINICAL INFORMATION: Cough. COMPARISON: 06/03/2016 TECHNIQUE: Portable view of the chest was obtained. FINDINGS: Cardiac leads overlie the chest. The lungs are well expanded. Streaky left basilar opacity noted. No pleural effusion or pneumothorax. No edema. The cardiomediastinal silhouette is unchanged. IMPRESSION: Streaky left basilar opacity could represent atelectasis or pneumonia.
--- NOTE | 2016-07-05 16:30 | RADIOLOGY REPORT ---
EXAMINATION: XR SHOULDER, LEFT CLINICAL INFORMATION: Pain status post fall COMPARISON: None. TECHNIQUE: 2 views of the left shoulder FINDINGS: No evidence of acute fracture or dislocation. The humeral head articulates appropriately with the glenoid. The joint space is not well evaluated on these limited views. The acromioclavicular joint is intact with mild degenerative changes. The visualized lung is clear. IMPRESSION: No acute fracture or dislocation.
--- NOTE | 2016-07-05 16:33 | NUR ---
PT LETHARGIC BUT MOANING AT TIMES. MUMBLING WHEN ASKED IF ANYTHIGN IS WRONG. DTR AT BEDSIDE. HEART RATE 60. O2 SAT 96% ON 2 L NC
--- NOTE | 2016-07-05 17:52 | NUR ---
PT MOANING. COMPLAINING OF ITCHING IN BUTTOCKS. PT LOGROLLED. PERICARE DONE. BARRIER CREAM APPLIED TO BUTTOCKS/SACRAL AREA. BLANCHABLE REDNESS NOTED ON SACRUM. PT STATES RELIEF AFTER THIS INTERVENTION. ATTEMPTED TO TURN PT TO LEFT SIDE FOR PRESSURE RELIEF ON SACRUM BUT DID NOT TOLERATE THIS POSITION AND INSISITED ON LAYING ON BACK.
[2016-07-05] MEDS ORDERED: ACEPHEN650 M1 PR (18:02)
[2016-07-05] MEDS ORDERED: TYLENOL325 M1 PO (18:04)
[2016-07-05] MEDS ORDERED: DULCOLAX10 M1 RC (18:05)
--- NOTE | 2016-07-05 18:12 | NUR ---
PT ASSISTED WITH ATTEMPTING TO VOID IN URINAL. PT UNABLE TO VOID
[2016-07-05] MEDS ORDERED: FLEET ENEMA133 ML RC (18:21)
--- NOTE | 2016-07-05 18:27 | NUR ---
DR. COFFEY/ALEAH REYES X [phone]. [phone].
[2016-07-05] MEDS ORDERED: MILK OF MA400 MG/52 PO (18:35)
[2016-07-05] MEDS ORDERED: GERI-TUSSI100 MG/5 M PO (18:35)
[2016-07-05] MEDS ORDERED: IPRAT-ALBUT 0.5-3 ML INH (18:37)
--- NOTE | 2016-07-05 19:05 | NUR ---
ATTEMPTED TO PLACE NEW IV AND DRAW CULTURES. UNSUCCESSFUL ATTEMPT MADE. PT SCREAMED OUT IN PAIN DURING PROCEDURE.
--- NOTE | 2016-07-05 19:10 | NUR ---
SECOND ATTEMPT TO DRAW BLOOD CULTURES MADE BY SHIMON TRUJILLO WITH THIS NURSES ASSISTANCE. UNSUCCSSFUL ATTEMPT. PT CRYING OUT DURING PROCEDURE "NO MORE NO MORE NO MORE"
--- NOTE | 2016-07-05 20:00 | NUR ---
DTR MANI HARRISON [phone]
--- NOTE | 2016-07-05 21:23 | NUR ---
SON VISITING WITH PT. PT MORE ALERT AND TALKING MORE. ASSISTED PT WITH USING URINAL
--- NOTE | 2016-07-05 21:43 | NUR ---
PT REPOSITIONED IN BED. GIVEN BOX DINNER. PT FEEDING HIMSELF DINNER. PT MORE ALERT, EYES OPEN. CONTINUES TO HAVE CONGESTED COUGH
--- NOTE | 2016-07-05 22:22 | NUR ---
PT MOVED TO ROOM 20. THIS NURSE CONTINUES TO MAINTAIN CARE OF PT. PT DONE EATING. MOVED TO HOSPITAL BED. ATTEMPTED TO POSITION ON RIGHT SIDE BUT REFUSED TO STAY ON SIDE. MOVED BACK TO SUPINE POSITION
--- NOTE | 2016-07-05 23:13 | NUR ---
PT SUDDENLY BEGAN COMPLAINING OF SEVERE LOWER BACK PAIN. ATTEMPTED TO REPOSITION PT ON BOTH LEFT AND RIGHT SIDE. PAIN NOT RELIEVED. PT PUT IN SUPINE POSITION WITH HOB 30 DEGREES. GIVEN ROXICODONE FOR PAIN. PT YELLING "HELP ME HELP ME" VERY AGITATED. ARMS TENSE. WILL NOT ALLOW US TO DO BLOOD PRESSURE
--- NOTE | 2016-07-05 23:24 | NUR ---
REPORT CALLED TO MICHAEL ON A. BED NOT CLEAN YET.
--- NOTE | 2016-07-05 23:31 | History & Physical ---
MARIELA VASQUEZ,JASPER 07/05/16 4790: General Information and HPI MD Statement: I have seen and personally examined MATTI HACKETT and documented this H&P. The patient is a 86 year old M who presented with a patient stated chief complaint of [recurrent falls]. Source of Information: family, old records, EMS Exam Limitations: unable to give history, clinical condition History of Present Illness: Patient is a 86 YO M with PMH significant for HTN, CAD, SC, AAA (s/p stent placement), PVD, TIA, lung nodule, BPH, CKD, urinary retention secondary to stricture came to the ER after recurrent falls. He was recently discharged form [facility] after prolonged course with unwitnessed fall hip fracture. He was discharged to [facility] where he found to have falls on monday & monday. He also had fever, congestion and cough resulting in lethargy, confusion. Most of the history is obtained from the son, patient is delirious in the ER - able to talk. He denies any shortness of breath, chest pain, N/V/D, urinary problems. He was recently evaluated for a UTI - but negative cultures so far. In the ER patient spiked fever of 102.2F, became more agitated. Allergies/Medications Allergies: Coded Allergies: oxycodone (From PERCOCET) (HALLUCINATIONS 05/30/16) Home Med list Acetaminophen (Acephen) 650 MG SUPP.RECT 1 SUPP VT Q6H PRN PAIN/TEMP>101 ( Reported) Acetaminophen (Tylenol) 325 MG TABLET 2 TAB PO Q6H PRN PAIN/TEMP>101 ( Reported) Atorvastatin Calcium 40 MG TABLET 1 TAB PO DAILY CHOLESTEROL (Reported) Bisacodyl (Dulcolax) 10 MG SUPP.RECT 1 SUP RC DAILY PRN CONSTIPATION ( Reported) Carvedilol (Coreg) 3.125 MG TABLET 6.25 MG PO BID BLOOD PRESSURE Cholecalciferol (Vitamin D3) 1,000 UNIT TABLET 1 TAB PO DAILY bone strength ( Reported) Cyanocobalamin (Vitamin B-12) 1,000 MCG TABLET 1 TAB PO DAILY SUPPLEMENT ( Reported) Enoxaparin Sodium (Lovenox) 30 MG/0.3 ML SYRINGE 30 MG SC DAILY anticoagulation Furosemide 20 MG TABLET 1 TAB PO Monday [facility] Guaifenesin (Kimber-Tussin) 100 MG/5 ML LIQUID 10 ML PO Q6H UNKNOWN (Reported) Ipratropium/Albuterol Sulfate (Iprat-Albut 0.5-3(2.5) MG/3 Ml) 0.5 MG-3 MG (2.5 MG BASE)/3 ML AMPUL.NEB 3 ML INH Q8H PRN SOB/WHEEZE (Reported) Magnesium Hydroxide (Milk Of Magnesia) 400 MG/5 ML ORAL.SUSP 30 ML PO Q3D GI (Reported) Na Phos,M-B/Na Phos,Di-Ba (Fleet Enema) 19 GRAM-7 GRAM/118 ML ENEMA 1 E RC DAILY PRN CONSTIPATION (Reported) Olanzapine 2.5 MG TABLET 1 TAB PO Q8P PRN AGITATION Spironolactone (Aldactone) 25 MG TABLET 1 TAB PO DAILY heart health Tamsulosin HCl (Flomax) 0.4 MG CAP.ER.24H 1 TAB PO 1700 BPH Compliance With Home Meds: FAIR Past History Travel History Traveled to [place] past 21 day No Medical History Neurological: CVA EENT: NONE Cardiovascular: hypertension, hyperlipidemia, myocardial infarction, peripheral vascular disease Respiratory: pulmonary nodule? 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 Senior Living Facility Who Do You Live With? self Services at Home: Nursing Primary Language: Ukrainian Smoking Status: Former Smoker ETOH Use: denies use Illicit Drug Use: denies illicit drug use Functional Ability ADLs Needs Assist: dressing, eating, toileting, bathing. Ambulation: walker IADLs Needs Assist: shopping, housework, finances, food prep, telephone, transportation, medication admin. Review of Systems Review of Systems Constitutional: Reports: see HPI, fever, malaise, weakness. EENTM: Reports: see HPI, visual changes, hearing changes. Cardiovascular: Reports: see HPI. Respiratory: Reports: see HPI, cough, short of breath. GI: Reports: no symptoms, see HPI. Genitourinary: Reports: see HPI. All Other Systems: Reviewed and Negative Exam & Diagnostic Data Last 24 Hrs of Vital Signs/I&O Vital Signs Date Time Temp Pulse Resp B/P Pulse O2 O2 Flow FiO2 Ox Delivery Rate 07/05 2347 102.2 82 22 129/88 92 Nasal 2.0L Cannula 07/05 2334 99.8 07/05 2316 99.8 86 18 91 Nasal 2.0L Cannula 07/05 2101 Nasal 2.0L Cannula 07/05 2018 98.4 72 18 143/69 94 Room Air 07/05 1838 Nasal 2.0L Cannula 07/05 1802 97.0 58 16 116/56 93 Nasal 2.0L Cannula 07/05 1639 96 Nasal 2.0L Cannula 07/05 1550 98.6 68 18 123/61 96 Nasal 2.0L Cannula 07/05 1425 97.9 75 18 121/88 95 Room Air Intake & Output 07/06 0800 07/06 0000 07/05 1600 Intake Total 1310 Output Total 250 Balance 1060 Intake, IV 1250 Intake, Oral 60 Output, Urine 250 Patient 73.482 kg Weight Physical Exam General Appearance Alert, Mild Distress, not oriented Skin No Rashes, No Breakdown HEENT Atraumatic, PERRLA Neck Supple Cardiovascular Regular Rate, Normal S1, Normal S2, No Murmurs Lungs Normal Air Movement, bilateral rhonchi present Abdomen Normal Bowel Sounds, Soft, No Tenderness Neurological Sensation Intact Extremities No Clubbing, No Cyanosis, unilateral edema present on the right leg Vascular Pulses Symmetrical Body Front and Back (Adult) 1) edema after hip fracture surgery Last 24 Hrs of Labs/Wilner: Laboratory Tests 07/05/16 1930: Urine Color YEL, Urine Clarity HAZY H, Urine pH 8.5 H, Ur Specific Chazy 1.010, Urine Protein 30 H, Urine Ketones NEG, Urine Nitrite NEG, Urine Bilirubin NEG, Urine Urobilinogen 2.0 H, Ur Leukocyte Esterase LARGE H, Ur Microscopic SEDIMENT EXAMINED, Urine RBC 5-10 H, Urine WBC 10-15 H, Ur Epithelial Cells FEW, Hyaline Casts RARE H, Urine Hemoglobin SMALL H, Urine Glucose NEG 07/05/16 1511: Anion Gap 7, Estimated GFR 44 L, BUN/Creatinine Ratio 20.7, Glucose 107 H, Calcium 9.2, Total Bilirubin 0.9, AST 26, ALT 42, Alkaline Phosphatase 120, Troponin I 0.03, Total Protein 6.1 L, Albumin 3.3 L, Globulin 2.8, Albumin/ Globulin Ratio 1.2, PT 11.7, INR 1.12, APTT 27, CBC w Diff NO MAN DIFF REQ, RBC 3.29 L, MCV 100.9 H, MCH 33.6 H, RDW 15.4 H, MPV 7.5, Gran % 72.8, Lymphocytes % 9.3 L, Monocytes % 8.6, Eosinophils % 9.2 H, Basophils % 0.1, Absolute Granulocytes 7.0 H, Absolute Lymphocytes 0.9 L, Absolute Monocytes 0.8 H, Absolute Eosinophils 0.9, Absolute Basophils 0, PUBS MCHC 33.3 Microbiology 07/06 129 URINE ROUT: Legionella Antigen - ORD 07/06 129 URINE ROUT: Streptococcus pneumoniae Antigen (M - ORD 07/05 1929 BLOOD: Blood Culture - RECD 07/05 1924 BLOOD: Blood Culture - RECD Diagnostic Data CXR Results IMPRESSION: Streaky left basilar opacity could represent atelectasis or pneumonia. Other Results maxillo facial CT IMPRESSION: 1. No acute intracranial process or discrete facial bone fracture. 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 2. No acute cervical spine fracture or traumatic subluxation. Cervical spondylosis as above with asymmetric multilevel high-grade left foraminal stenosis. 3. Scattered inflammatory disease within the paranasal sinuses. 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 ER Vital Signs Tmax of 102.2, Pulse 82, BP 120/80mmHg, on 3L NC Labs revealed WBC of 9.6, H&H 11.1/33.2, platelet 198,, normal electrolytes, BUN 31, creatinine 1.5 (baseline creatinine 1.2 on 06/24/2016), normal LFT, troponin 0.03. UA noted hazy with pH of 8.7, bili of 2, large leukocyte esterase, WBC 10-15, RBC 5-10, rare epithelial cells, rare hyaline Costen small hemoglobin. Urine culture sent on 07/04/2016 so far did not grow any organism CT scan of C-spine, head and maxillofacial bone without contrast: Noted moderate chronic microangiopathic and volume loss, chronic right parietal and left cerebellar infarcts, cervical spondylosis with asymmetric multilevel high-grade left foraminal stenosis without any evidence of acute fracture or acute intracranial pathology Chest x-ray showed streaky left basilar opacity suggestive of atelectasis versus pneumonia Left shoulder x-ray did not reveal any fracture or dislocation EKG was poor quality due to artifact but noted regular rhythm likely normal sinus with right bundle branch block and QTC 480 Plan Admitted to general medicine floor Suspected health care associated pneumonia * Cough, congestion with confusion - from a SNF * Spiked a fever of 102.2 in ER * Started on broad spectrum antibiotics with IV ceftazidime and vancomycin * TRC/Nebs * F/U Barlow cultures * Pulm consult in the am Deconditioning * recurrent falls secondary to weakness * May benefit from skilled physical therapy Coronary Artery Disease * On atrovastatin 40mg, Coreg 6.25 BID - we will continue home dose of medications * Holding spirinolactone in light of Cr 1.5 GAIL * Creatinine 1.5 from a baseline of 1.2 * IVF to rehydrate * Holding spiranolactone, lasic and nephrotoxic drugs * BEP daily BPH * On tamsulosin at home, we will continue that Agitation * Patient is very agitated and delirious * Zyprexa 2.5mg Q8 * received a single dose of parenteral zyprexa in the ER DVT prophylaxis * SC heparin Code Status * DNR/DNI As Ranked By This Provider Problem List: 1. Delirium 2. Pneumonia Qualifiers Pneumonia type: due to unspecified organism Laterality: left Lung location: lower lobe of lung Qualified Code: J18.1 - Lobar pneumonia, unspecified organism 3. Altered mental status Qualifiers Altered mental status type: unspecified Qualified Code: R41.82 - Altered mental status, unspecified 4. Multifactorial gait disorder 5. Status post hip surgery Core Measures/Miscellaneous Acute Coronary Syndrome ACS Diagnosis: No Cerebrovascular Accident CVA/TIA Diagnosis: No Congestive Heart Failure CHF Diagnosis: No Venous Thromboembolism VTE Risk Factors: Age > 40 VTE Prophylaxis Ordered Inpt: Pharm- Heparin No Mech VTE prophylaxis d/t: No contraindications No VTE Pharm Prophylaxis d/t: No contraindications VTE Diagnosis: No VTE Type: NONE VTE Confirmed by (Test): NONE Severe Sepsis Severe Sepsis Present: No Septic Shock Septic Shock Present: No Miscellaneous Documentation Attending Case Discussed With: MIRIAM BULLARD MD Primary Care Physician: NAY LARSON MD Patient sees these Specialists unknown Level of Patient Care: General Medicine SAAD BRADY MD 07/05/16 1339: Resident Review Statement Resident Statement: examined this patient, discussed with regulatory affairs internship, agreed with regulatory affairs internship, discussed with family, reviewed EMR data (avail), reviewed images, amended to note Other Findings: This is 86-year-old male with past medical history of hypertension, AAA status post stent placement, lung nodule, CAD status post SC, TIA, delirium secondary to UTI, 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 after sustaining unwitnessed fall resulting in hip fracture with hospital course complicated with acute delirium and UTI treated with antibiotic for 5 days and was discharged to intermediate [facility] for rehabilitation now sent in from rehabilitation after patient sustained to unwitnessed falls in past 2 days with most recent fall last night resulting in a head strike and right head laceration with a one-week history of congestion and cough and 2 days history of lethargy and change in mental status. Patient also had low-grade fever of 100.6, 2 days prior to admission. Patient denies any chest pain, lightheadedness, nausea, vomiting, abdominal pain, diarrhea or urinary symptoms. He was evaluated for UTI 2 days prior to admission with negative urine culture so far. His vitals were T 98.6, HR 75, RR 18, BP 120/78, O2 sat 93% on 2 L supplemental O2 On physical exam patient is alert oriented with occasional confusion, HEENT PERRLA EOMI noted laceration at the right eyelid, neck supple, heart S1-S2 normal with systolic murmur, on auscultation of lungs noted rhonchi at left base , abdomen soft nontender nondistended with preserved fall sounds, right lower extremity edema, no focal gross neuro deficit. Labs revealed WBC of 9.6, H&H 11.1/33.2, platelet 198,, normal electrolytes, BUN 31, creatinine 1.5 (baseline creatinine 1.2 on 06/24/2016), normal LFT, troponin 0.03. UA noted hazy with pH of 8.7, bili of 2, large leukocyte esterase, WBC 10-15, RBC 5-10, rare epithelial cells, rare hyaline Costen small hemoglobin. Urine culture sent on 07/04/2016 so far did not grow any organism CT scan of C-spine, head and maxillofacial bone without contrast: Noted moderate chronic microangiopathic and volume loss, chronic right parietal and left cerebellar infarcts, cervical spondylosis with asymmetric multilevel high-grade left foraminal stenosis without any evidence of acute fracture or acute intracranial pathology Chest x-ray showed streaky left basilar opacity suggestive of atelectasis versus pneumonia Left shoulder x-ray did not reveal any fracture or dislocation EKG was poor quality due to artifact but noted regular rhythm likely normal sinus with right bundle branch block and QTC 480 Assessment: This is 86 year male with past medical history of hypertension, hyperlipidemia, CAD, TIA, recent hip fracture status post ORIF, BPH, CKD presented from [facility] after sustaining to unwitnessed fall resulting in head strike right head laceration also with one-week history of congestion associated with cough and low-grade fever and change in mental status and lethargic found to have left basilar opacity on x-ray suspicious for pneumonia. Patient spiked fever of 102.2 in ER suggestive of acute infection. 1. Healthcare related pneumonia - Admit to general medicine floor - Follow-up blood culture and urine culture - Patient received broad-spectrum antibiotic Vanco and ceftazidime ER, will continue broad spectrum empiric antibiotic - Obtain sputum sample and sent for culture - Pulmonary consult in a.m. - Supplement O2 - TRC 2. Asymptomatic bacteriuria - Patient denies any urinary symptoms but noted dirty urine with previous urine culture so far remain negative 3. Unwitnessed mechanical fall - Physical therapy evaluation 4. CAD - Patient remained asymptomatic - Continue home dose Coreg 6.25 twice a day if blood pressure tolerates - Hold spironolactone due to renal failure, resumed once kidney function improves - Plavix on hold as patient currently on anticoagulation for DVT prophylaxis post surgery 5. Urinary retention/BPH - Continue Flomax 6. Acute kidney injury in setting of dehydration with CKD - Avoid nephrotoxic agent - Gentle IV hydration - Hold spironolactone and Lasix - Recheck renal function in a.m. 7. Hyperlipidemia -Continue statin 8. Recent history of hip fracture - Status post ORIF - Continue DVT prophylaxis 9. DVT prophylaxis Subcutaneous Lovenox 10. DNR/DNI MIRIAM BULLARD MD 07/06/16 0908: Attending MD Review Statement Attending Statement Attending MD Statement: examined this patient, discuss w/resident/PA/SURVEYOR HELPER, agreed w/resident/PA/SURVEYOR HELPER, reviewed EMR data (avail)
--- NOTE | 2016-07-05 23:34 | NUR ---
PT STATES BACK PAIN IS EASING UP. PT NOW WITH RIGORS AND EXP WHEEZES. UNABLE TO GET BLOOD PRESURE DUE TO PT FEELING CHILLED AND KEEPING ARMS TIGHT AGAINST CHEST. PT ALSO CONFUSED AND SAYING INAPPROPRIATE REMARKS. SON AT BEDSIDE. TEMPT 99.8. PT GIVEN TYLENOL AND ROBITUSSIN. RT CALLED AND ASKED TO GIVE PT A NEB TX
--- NOTE | 2016-07-05 23:48 | NUR ---
RIGORS EASING OFF. PT STATES BACK PAIN IS BETTER. PT MOANING AND SOMEWHAT CONFUSED. YELLING OUT "HELP ME" AT TIMES. VITALS RECHECKED AND TEMP 102.2. DR SIERRA NOTIFIED
[2016-07-06] VITALS (7 sets, daily range): BP systolic 82–125; BP diastolic 38–72
--- NOTE | 2016-07-06 05:49 | NUR ---
0220 ADMITTED FROM ER VIA STRETCHER TO ROOM 225.ASSISTED TO BED & MADE COMFORTABLE.86 YRS.OLD WM FROM REHAB.WITH FREQUENT FALLS & INCREASED CONFUSION.ACCOMPANIED BY SON.DROWSY & AROUSABLE ON ADMISSION.PT WAS FIGETTY & REMOVING IRA COAT & BLANKETS.PATIENT SAFETY MONITOR IN PLACED.O2 1L NC IN USE.HL X2 WITH IVF IN ONE.ORIENT TO ROOM & SHELBY- ROUNDINGS.CONGESTIVE DOUGHS AT TIMES.
--- NOTE | 2016-07-06 07:37 | PN- Housestaff ---
Subjective Follow-up For: 1.Healthcare related pneumonia 2. Asymptomatic bacteriuria Subjective: Patient seen and examined in the morning, seems to be confused. Spiked a temperature of 102.2 at 11 PM,, and was switched back to IV vancomycin and ceftazidime. Denies any chest discomfort trouble breathing. We will repeat chest x-ray in the morning. Rapid flu and other cultures are pending Review of Systems Constitutional: Denies: chills, diaphoresis, fever. EENTM: Denies: blurred vision, visual changes, eye pain. Cardiovascular: Denies: chest pain, edema, orthopena. Respiratory: Denies: cough, hemoptysis, orthopnea. Gastrointestinal: Denies: abdominal pain, bloating, diarrhea. Genitourinary: Denies: discharge, dysuria. Objective Last 24 Hrs of Vital Signs/I&O Vital Signs Date Time Temp Pulse Resp B/P Pulse O2 O2 Flow FiO2 Ox Delivery Rate 07/06 0230 98.7 94 19 112/72 92 Nasal 1.0L Cannula 07/05 2347 102.2 82 22 129/88 92 Nasal 2.0L Cannula 07/05 2334 99.8 07/05 2316 99.8 86 18 91 Nasal 2.0L Cannula 07/05 2102 Nasal 2.0L Cannula 07/05 2019 98.4 72 18 143/69 94 Room Air 07/05 1838 Nasal 2.0L Cannula 07/05 1802 97.0 58 16 116/56 93 Nasal 2.0L Cannula 07/05 1639 96 Nasal 2.0L Cannula 07/05 1550 98.6 68 18 123/61 96 Nasal 2.0L Cannula 07/05 1425 97.9 75 18 121/88 95 Room Air Intake & Output 07/06 1600 07/06 0800 07/06 0000 Intake Total 1310 Output Total 250 Balance 1060 Intake, IV 1250 Intake, Oral 60 Output, Urine 250 Patient 162 lb Weight Physical Exam General Appearance: Alert, Oriented X3 Skin: No Rashes Cardiovascular: Regular Rate, Normal S1, Normal S2 Lungs: Clear to Auscultation, Normal Air Movement Abdomen: Normal Bowel Sounds, Soft, No Tenderness Assessment/Plan Assessment: Assessment: This is 86 year male with past medical history of hypertension, hyperlipidemia, CAD, TIA, recent hip fracture status post ORIF, BPH, CKD presented from [facility] after sustaining to unwitnessed fall resulting in head strike right head laceration also with one-week history of congestion associated with cough and low-grade fever and change in mental status and lethargic found to have left basilar opacity on x-ray suspicious for pneumonia. Patient spiked fever of 102.2 in ER suggestive of acute infection. 1. Healthcare related pneumonia * Continue to monitor patient on the [facility]. * Continue with IV ceftazidime and vancomycin for now * Blood cultures and urine cultures are pending Will also send sputum cultures. * Follow-up rapid flu * Continue gentle hydration . * Will repeat PA and lateral chest x-ray today. * Pulmonology consult Leno Dill MD has been obtained we'll follow the recommendations. * Continue TRC nebs * And oxygen as needed keep saturations above 92%. 2. Asymptomatic bacteriuria * Patient denies any urinary symptoms but noted dirty urine with previous urine culture so far remain negative 3. Unwitnessed mechanical fall * Physical therapy evaluation 4. CAD * Patient remained asymptomatic * Continue home dose Coreg 6.25 twice a day if blood pressure tolerates * Hold spironolactone due to renal failure, resumed once kidney function improves * Plavix on hold as patient currently on anticoagulation for DVT prophylaxis post surgery 5. Urinary retention/BPH * Continue Flomax 6. Acute kidney injury in setting of dehydration with CKD * Avoid nephrotoxic agent * Gentle IV hydration Hold spironolactone and Lasix Recheck renal function in a.m. 7. Hyperlipidemia -Continue statin 8. Recent history of hip fracture - Status post ORIF - Continue DVT prophylaxis 9. DVT prophylaxis Subcutaneous Lovenox 10. DNR/DNI Problem List: 1. Altered mental status 2. Multifactorial gait disorder 3. Pneumonia Pain Ratin Pain Location: No pain at this time Pain Goal: Remain pain free Pain Plan: prn Tylenol Tomorrow's Labs & Rationales: CBC BEP tomorrow Leukocytosis and elevated creatinine
[2016-07-06 08:05] LABS: ABSOLUTE BASOPHIL COUNT 0 /CUMM (0.0-0.2); ABSOLUTE EOSINOPHIL COUNT 0.1 /CUMM (0.0-0.7); ABSOLUTE GRANULOCYTE CT 13.8 /CUMM (1.4-6.5); ABSOLUTE LYMPH COUNT 0.5 /CUMM (1.2-3.4); ABSOLUTE MONOCYTE COUNT 0.7 /CUMM (0.10-0.60); BASOPHIL % 0.1 % (0.0-2.0); EOSINOPHIL % 0.4 % (0-5); GRANULOCYTE % 91.7 % (42.2-75.2); HEMATOCRIT 29.3 % (42-52); MEAN CORPUSCULAR HGB 33.8 PG (27.0-31.0); MEAN CORPUSCULAR HGB CONC 33.7 G/DL (33.0-37.0); MEAN CORPUSCULAR VOLUME 100.2 FL (80.0-94.0); MEAN PLATELET VOLUME 8.1 FL (7.4-10.4); PLATELET COUNT 168 /CUMM (130-400); RBC DISTRIBUTION WIDTH 15.4 % (11.5-14.5); RED BLOOD CELL CT 2.92 /CUMM (4.70-6.10)
--- NOTE | 2016-07-06 08:57 | Admission Certification ---
Admission Certification Certification Statement - As attending physician, I certify that at the time of - admission, based on clinical presentation, severity of - symptoms, need for further diagnostic testing and - therapeutic interventions, and risk of adverse outcomes - without in-hospital treatment, in my clinical assessment, - this patient requires an acute hospital stay for a minimum - of two nights or longer. I have also considered psychsocial - factors such as support system, advanced age, financial - issues, cognitive issues, and failed out-patient treatments, - past re-admission history, safety of patient, and lack of - compliance as applicable. Specific rationale supporting this admission is: Pneumonia
--- NOTE | 2016-07-06 09:08 | PN- Att Addend ---
Attending Addendum Attending Brief Note Patient on evaluation appears in some distress and unable to provide history General Appearance: Alert, No Acute Distress Skin: Grossly normal HEENT: PEERLA Neck: Supple, No JVD Cardiovascular: Regular Rate, Normal S1, Normal S2, No Murmurs Lungs: Bibasilar crackles Abdomen: Normal Bowel Sounds, Soft, No Tenderness Neurological: Normal Speech, Strength at 5/5 X4 Ext, Cranial Nerves 3-12 NL, Reflexes 2+ Extremities: No Clubbing, No Cyanosis, No Edema Vascular: Normal Pulses Assessment 86-year-old with history of hypertension, coronary artery disease, abdominal aortic aneurysm, DC, peripheral vascular disease, chronic kidney disease, history of urinary retention and UTIs was recently discharged after a fracture repair status post fall now presenting from rehabilitation with fever, lethargy, confusion and chest x-ray suggesting left basilar opacity. UA is borderline. We will admit patient for possible hospital-acquired pneumonia and also test for flu. Noticed acute kidney injury that is improving. Plan Check for influenza Repeat chest x-ray PA and lateral view continue gentle hydration Continue vancomycin and ceftazidime Send sputum culture Follow all cultures DVT prophylaxis DNI/DNR Current Medications Sig/Chirag Start time Last Medication Dose Route Stop Time Status Admin Acetaminophen 0 .STK-MED ONE 07/05 2330 DC PO Acetaminophen 650 MG Q6P PRN 07/05 2200 AC 07/05 PO 2334 Albuterol Sulfate 3 ML Q4H PRN 07/05 2345 AC INH Albuterol Sulfate 3 ML ONCE ONE 07/05 1845 DC 07/05 INH 07/05 1846 1836 Albuterol Sulfate 3 ML ONCE ONE 07/05 1600 DC 07/05 INH 07/05 1601 1639 Atorvastatin Calcium 40 MG 1700 07/06 1700 AC PO Azithromycin 500 MG DAILY 07/06 1000 CAN Dextrose/Water 250 ML IV Carvedilol 6.25 MG BID 07/06 1000 AC PO Ceftazidime 1,000 MG Q12H 07/06 0800 AC 07/06 IV 0855 Ceftazidime 0 .STK-MED ONE 07/05 1939 DC .ROUTE Ceftazidime 1,000 MG ONCE ONE 07/05 1830 DC 07/05 IV 07/05 183 195 Ceftriaxone Sodium 2,000 MG DAILY 07/06 1000 CAN IV Cholecalciferol 1,000 IU DAILY 07/06 1000 AC PO Cyanocobalamin 1,000 MCG DAILY 07/06 1000 AC PO Enoxaparin Sodium 30 MG DAILY 07/06 1000 AC SC Guaifenesin 0 .STK-MED ONE 07/05 2330 DC PO Guaifenesin 10 ML Q6H 07/05 2315 AC 07/05 PO 2333 Ipratropium Steinauer 2.5 ML ONCE ONE 07/05 1600 DC 07/05 INH 07/05 1601 1639 Olanzapine 0 .STK-MED ONE 07/06 0125 DC IM Olanzapine 2.5 MG Q8P PRN 07/05 2330 AC PO Oxycodone HCl 0 .STK-MED ONE 07/05 2309 DC PO Oxycodone HCl 5 MG Q6H PRN 07/05 2200 AC 07/05 PO 2311 Oxycodone/ 0 .STK-MED ONE 07/05 2307 DC Acetaminophen PO Paricalcitol 5 MCG ONCE ONE 07/06 0300 CAN IV 07/06 0301 Sodium Chloride 1,000 ML .[id number] 07/05 220 AC 07/06 IV 0300 Sodium Chloride 1,000 ML ONCE ONE 07/05 1815 DC 07/05 IV 07/06 0054 1952 Tamsulosin HCl 0.4 MG 1700 07/06 1700 AC PO Vancomycin HCl 1,000 MG DAILY 07/06 1000 AC Dextrose/Water 250 ML IV Vancomycin HCl 0 .STK-MED ONE 07/05 1939 DC .ROUTE Vancomycin HCl 1,000 MG ONCE ONE 07/05 1830 DC 07/05 Dextrose/Water 250 ML IV 07/05 1929 2101 Laboratory Tests 07/06 07/05 0610 1930 Chemistry Sodium (137 - 145 mmol/L) 140 Potassium (3.5 - 5.1 mmol/L) 3.8 Chloride (98 - 107 mmol/L) 108 H Carbon Dioxide (22 - 30 mmol/L) 23 Anion Gap (5 - 16) 9 BUN (9 - 20 mg/dL) 30 H Creatinine (0.7 - 1.2 mg/dL) 1.4 H Estimated GFR (>60 ml/min) 48 L BUN/Creatinine Ratio (7 - 25 %) 21.4 Hematology CBC w Diff Pending WBC Pending RBC Pending Hgb Pending Hct Pending MCV Pending MCH Pending RDW Pending Plt Count Pending MPV Pending Gran % Pending Lymphocytes % Pending Monocytes % Pending Eosinophils % Pending Basophils % Pending Absolute Granulocytes Pending Absolute Lymphocytes Pending Absolute Monocytes Pending Absolute Eosinophils Pending Absolute Basophils Pending PUBS MCHC Pending Urines Urine Color (YEL,AMB,STR) YEL Urine Clarity (CLEAR) HAZY H Urine pH (5.0 - 8.0) 8.5 H Ur Specific [place] (1.001 - 1.035) 1.010 Urine Protein (NEG,<30 MG/DL) 30 H Urine Ketones (NEG) NEG Urine Nitrite (NEG) NEG Urine Bilirubin (NEG) NEG Urine Urobilinogen (0.1 - 1.0 EU/dl) 2.0 H Ur Leukocyte Esterase (NEG) LARGE H Ur Microscopic SEDIMENT EXAMINED Urine RBC (0 - 5 /HPF) 5-10 H Urine WBC (0 - 2 /HPF) 10-15 H Ur Epithelial Cells (NONE,FEW) FEW Hyaline Casts (0/LPF) RARE H Urine Hemoglobin (NEG) SMALL H Urine Glucose (N MG/DL) NEG 07/05 1511 Chemistry Sodium (137 - 145 mmol/L) 139 Potassium (3.5 - 5.1 mmol/L) 4.9 Chloride (98 - 107 mmol/L) 105 Carbon Dioxide (22 - 30 mmol/L) 27 Anion Gap (5 - 16) 7 BUN (9 - 20 mg/dL) 31 H Creatinine (0.7 - 1.2 mg/dL) 1.5 H Estimated GFR (>60 ml/min) 44 L BUN/Creatinine Ratio (7 - 25 %) 20.7 Glucose (65 - 99 mg/dL) 107 H Calcium (8.4 - 10.2 mg/dL) 9.2 Total Bilirubin (0.2 - 1.3 mg/dL) 0.9 AST (17 - 59 U/L) 26 ALT (21 - 72 U/L) 42 Alkaline Phosphatase (< 127 U/L) 120 Troponin I (<0.11 ng/ml) 0.03 Total Protein (6.3 - 8.2 g/dL) 6.1 L Albumin (3.5 - 5.0 g/dL) 3.3 L Globulin (1.9 - 4.2 gm/dL) 2.8 Albumin/Globulin Ratio (1.1 - 2.2 %) 1.2 Coagulation PT (9.4 - 12.5 SEC) 11.7 INR (0.90 - 1.17) 1.12 APTT (25 - 37 SEC) 27 Hematology CBC w Diff NO MAN DIFF REQ WBC (4.8 - 10.8 /CUMM) 9.6 RBC (4.70 - 6.10 /CUMM) 3.29 L Hgb (14.0 - 18.0 G/DL) 11.1 L Hct (42 - 52 %) 33.2 L MCV (80.0 - 94.0 FL) 100.9 H MCH (27.0 - 31.0 PG) 33.6 H RDW (11.5 - 14.5 %) 15.4 H Plt Count (130 - 400 /CUMM) 198 MPV (7.4 - 10.4 FL) 7.5 Gran % (42.2 - 75.2 %) 72.8 Lymphocytes % (20.5 - 51.1 %) 9.3 L Monocytes % (1.7 - 9.3 %) 8.6 Eosinophils % (0 - 5 %) 9.2 H Basophils % (0.0 - 2.0 %) 0.1 Absolute Granulocytes (1.4 - 6.5 /CUMM) 7.0 H Absolute Lymphocytes (1.2 - 3.4 /CUMM) 0.9 L Absolute Monocytes (0.10 - 0.60 /CUMM) 0.8 H Absolute Eosinophils (0.0 - 0.7 /CUMM) 0.9 Absolute Basophils (0.0 - 0.2 /CUMM) 0 PUBS MCHC (33.0 - 37.0 G/DL) 33.3 Vital Signs Date Time Temp Pulse Resp B/P Pulse O2 O2 Flow FiO2 Ox Delivery Rate 07/06 0230 98.7 94 19 112/72 92 Nasal 1.0L Cannula 07/05 2347 102.2 82 22 129/88 92 Nasal 2.0L Cannula 07/05 2334 99.8 07/05 2316 99.8 86 18 91 Nasal 2.0L Cannula 07/05 2101 Nasal 2.0L Cannula 07/05 2018 98.4 72 18 143/69 94 Room Air 07/05 1838 Nasal 2.0L Cannula 07/05 1802 97.0 58 16 116/56 93 Nasal 2.0L Cannula 07/05 1639 96 Nasal 2.0L Cannula 07/05 1550 98.6 68 18 123/61 96 Nasal 2.0L Cannula 07/05 1425 97.9 75 18 121/88 95 Room Air
--- NOTE | 2016-07-06 12:53 | RADIOLOGY REPORT ---
EXAMINATION: XR PORTABLE CHEST CLINICAL INFORMATION: Cough, rule out pneumonia COMPARISON: 07/05/2016 TECHNIQUE: Portable view of the chest was obtained. FINDINGS: Lung volumes are symmetric. There are mild streaky bibasilar opacities suggesting atelectasis. No additional consolidation is seen. No evidence of pneumothorax, pleural effusion, or pulmonary edema. The cardiac silhouette is at the upper limits of normal in size. No acute osseous findings are seen. IMPRESSION: Streaky bibasilar opacities suggesting atelectasis.
--- NOTE | 2016-07-06 13:38 | Cons- Pulmonary ---
General Information and HPI Consulting Request Date of Consult: 07/06/16 Requested By: Med team History of Present Illness: Patient is a 86 YO M with PMH significant for HTN, CAD, DC, AAA (s/p stent placement), PVD, TIA, lung nodule, BPH, CKD, urinary retention secondary to stricture came to the ER after recurrent falls. He was recently discharged form [facility] after prolonged course with unwitnessed fall hip fracture. He was discharged to [facility] where he found to have falls on monday & monday. He also had fever, congestion and cough resulting in lethargy, confusion. In the ER patient spiked fever of 102.2F, became more agitated. Pt was deliriuous when i saw him and he could not give history Pt well know to [facility] with worsening over all state with previous multiple consults concluding that he has delirum due to underlying dementia Allergies/Medications Allergies: Coded Allergies: oxycodone (From PERCOCET) (HALLUCINATIONS 05/30/16) Home Med List: Acetaminophen (Acephen) 650 MG SUPP.RECT 1 SUPP NH Q6H PRN PAIN/TEMP>101 ( Reported) Acetaminophen (Tylenol) 325 MG TABLET 2 TAB PO Q6H PRN PAIN/TEMP>101 ( Reported) Atorvastatin Calcium 40 MG TABLET 1 TAB PO DAILY CHOLESTEROL (Reported) Bisacodyl (Dulcolax) 10 MG SUPP.RECT 1 SUP RC DAILY PRN CONSTIPATION ( Reported) Carvedilol (Coreg) 3.125 MG TABLET 6.25 MG PO BID BLOOD PRESSURE Cholecalciferol (Vitamin D3) 1,000 UNIT TABLET 1 TAB PO DAILY bone strength ( Reported) Cyanocobalamin (Vitamin B-12) 1,000 MCG TABLET 1 TAB PO DAILY SUPPLEMENT ( Reported) Enoxaparin Sodium (Lovenox) 30 MG/0.3 ML SYRINGE 30 MG SC DAILY anticoagulation Furosemide 20 MG TABLET 1 TAB PO Monday heart health Guaifenesin (Kimber-Tussin) 100 MG/5 ML LIQUID 10 ML PO Q6H UNKNOWN (Reported) Ipratropium/Albuterol Sulfate (Iprat-Albut 0.5-3(2.5) MG/3 Ml) 0.5 MG-3 MG (2.5 MG BASE)/3 ML AMPUL.NEB 3 ML INH Q8H PRN SOB/WHEEZE (Reported) Magnesium Hydroxide (Milk Of Magnesia) 400 MG/5 ML ORAL.SUSP 30 ML PO Q3D GI (Reported) Na Phos,M-B/Na Phos,Di-Ba (Fleet Enema) 19 GRAM-7 GRAM/118 ML ENEMA 1 E RC DAILY PRN CONSTIPATION (Reported) Olanzapine 2.5 MG TABLET 1 TAB PO Q8P PRN AGITATION Spironolactone (Aldactone) 25 MG TABLET 1 TAB PO DAILY heart health Tamsulosin HCl (Flomax) 0.4 MG CAP.ER.24H 1 TAB PO 1700 BPH Review of Systems Review of Systems Constitutional: Reports: see HPI. Comments COuld not be obtained as pt was confused with delirium Past History Travel History Traveled to [place] past 21 day No Medical History Blood Transfusion Hx: No Neurological: CVA, TIA EENT: NONE Cardiovascular: hypertension, hyperlipidemia, myocardial infarction, PVD, peripheral vascular disease HEART FAILURE Respiratory: pulmonary nodule? 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 Residential Facility Who Do You Live With? self Services at Home: Nursing Primary Language: Yakut Smoking Status: Former Smoker ETOH Use: denies use Illicit Drug Use: denies illicit drug use Functional Ability ADLs Needs Assist: dressing, eating, toileting, bathing. Ambulation: walker IADLs Needs Assist: shopping, housework, finances, food prep, telephone, transportation, medication admin. Exam & Diagnostic Data Last 24 Hrs of Vital Signs/I&O Vital Signs Date Time Temp Pulse Resp B/P Pulse O2 O2 Flow FiO2 Ox Delivery Rate 07/06 1234 101.1 07/06 1230 101.1 07/06 1007 72 92/52 07/06 0800 92 Nasal 1.0L Cannula 07/06 0300 90 Nasal 1.0L Cannula 07/06 0230 98.7 94 19 112/72 92 Nasal 1.0L Cannula 07/05 2347 102.2 82 22 129/88 92 Nasal 2.0L Cannula 07/05 2334 99.8 07/05 2316 99.8 86 18 91 Nasal 2.0L Cannula 07/05 2101 Nasal 2.0L Cannula 07/05 2018 98.4 72 18 143/69 94 Room Air 07/05 1838 Nasal 2.0L Cannula 07/05 1802 97.0 58 16 116/56 93 Nasal 2.0L Cannula 07/05 1639 96 Nasal 2.0L Cannula 07/05 1550 98.6 68 18 123/61 96 Nasal 2.0L Cannula 07/05 1425 97.9 75 18 121/88 95 Room Air Intake & Output 07/06 1600 07/06 0800 07/06 0000 Intake Total 225 1310 Output Total 250 Balance 225 1060 Intake, IV 225 1250 Intake, Oral 0 60 Number 0 Bowel Movements Output, Urine 250 Patient 162 lb Weight Last 48 Hrs of Labs/Wilner: Laboratory Tests 07/06/16 0610: Anion Gap 9, Estimated GFR 48 L, BUN/Creatinine Ratio 21.4, CBC w Diff MAN DIFF ORDERED, RBC 2.92 L, MCV 100.2 H, MCH 33.8 H, RDW 15.4 H, MPV 8.1, Gran % 91.7 H, Lymphocytes % 3.4 L, Monocytes % 4.4, Eosinophils % 0.4, Basophils % 0.1, Absolute Granulocytes 13.8 H, Segmented Neutrophils 66, Band Neutrophils 21 H, Absolute Lymphocytes 0.5 L, Lymphocytes 6 L, Monocytes 6, Absolute Monocytes 0.7 H, Eosinophils 1, Absolute Eosinophils 0.1, Absolute Basophils 0, Platelet Estimate VERIFIED BY SMEAR, Polychromasia 1+, Poikilocytosis 1+, Anisocytosis 1+, Macrocytic Cells 1+, Ovalocytes 1+, Uzair Cells 1+, PUBS MCHC 33.7 07/05/16 1930: Urine Color YEL, Urine Clarity HAZY H, Urine pH 8.5 H, Ur Specific [place] 1.010, Urine Protein 30 H, Urine Ketones NEG, Urine Nitrite NEG, Urine Bilirubin NEG, Urine Urobilinogen 2.0 H, Ur Leukocyte Esterase LARGE H, Ur Microscopic SEDIMENT EXAMINED, Urine RBC 5-10 H, Urine WBC 10-15 H, Ur Epithelial Cells FEW, Hyaline Casts RARE H, Urine Hemoglobin SMALL H, Urine Glucose NEG 07/05/16 1511: Anion Gap 7, Estimated GFR 44 L, BUN/Creatinine Ratio 20.7, Glucose 107 H, Calcium 9.2, Total Bilirubin 0.9, AST 26, ALT 42, Alkaline Phosphatase 120, Troponin I 0.03, Total Protein 6.1 L, Albumin 3.3 L, Globulin 2.8, Albumin/ Globulin Ratio 1.2, PT 11.7, INR 1.12, APTT 27, CBC w Diff NO MAN DIFF REQ, RBC 3.29 L, MCV 100.9 H, MCH 33.6 H, RDW 15.4 H, MPV 7.5, Gran % 72.8, Lymphocytes % 9.3 L, Monocytes % 8.6, Eosinophils % 9.2 H, Basophils % 0.1, Absolute Granulocytes 7.0 H, Absolute Lymphocytes 0.9 L, Absolute Monocytes 0.8 H, Absolute Eosinophils 0.9, Absolute Basophils 0, PUBS MCHC 33.3 Microbiology 07/05 1929 URINE ROUT: Legionella Antigen - COMP 07/05 1929 URINE ROUT: Streptococcus pneumoniae Antigen (M - COMP Assessment/Plan Impression/Plan: Physical Exam General Appearance delirious not oriented Skin No Rashes, No Breakdown HEENT Atraumatic, PERRLA Neck Supple Cardiovascular Regular Rate, Normal S1, Normal S2, No Murmurs Lungs Normal Air Movement, bilateral rhonchi present, crackles both bases Abdomen Normal Bowel Sounds, Soft, No Tenderness Neurological Sensation Intact Extremities No Clubbing, No Cyanosis, unilateral edema present on the right leg Vascular Pulses Symmetrical SIGNIFICANT DATA Crit continue pending. Urinary antigen unremarkable. Creatinine stable at 1.4. Anion gap is 9. White count was elevated at 9.6, now today's 15 with a left shift. Hemoglobin was low at 11.1 he has had low hemoglobin before platelets adequate INR was 1.1. O2 sat on room air was 91 now on 2 L. Urine analysis showed 10-15 WBCs, packed with bacteria, large leukocyte esterase. Chest x-ray showed streaky bibasilar atelectasis. IMPRESSION This is a gentleman with chronic kidney disease, previous ischemic heart disease with previous DC, hyperlipidemia, peripheral vascular disease, previous AAA repair, who is on antiplatelet therapy for peripheral vascular disease, hypertension hyperlipidemia now here with a hip fracture s/p surg on 05/30, subsequently had delirium for very prolonged period due to multiple factors, previous urinary retention with UTI with previous urology evaluation, now comes in with * Significant delirium with worsening dementia, now with urinalysis suggestive of UTI very tract infection. Patient may also have aspiration pneumonitis as he has worsening dementia with delirium causing him to have aspiration. 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 No recent history suggestive of atrial fibrillation. Patient was on antiplatelet therapy before and this needs to be started when he is able to take po. Is on lovenox dialy for dvt prophylaxis due to hip surg, due to recurrent fall he is off plavix now * IHD with cardiomyopathy * Hypertension and hyperlipidemia stable, Ischemic heart disease hypertension stable, Previous aaa * CT findings of the chest has a stable nodule with mild enlargement of lymphnodes with stable thoracic aortic aneurysm * Sig djd cspine REC Cont abx Dc vanco and azithro today Check magnesium and ekg daily NPO till more awake If sig delirious may need one dose of olanzapine COnt lovenox Nebs atc DC spiranolactone, for now ONce he can take po will start flomax Needs to check post void residue URine culture Flu swab D5 .45 normal saline 50 cc for one litre if not taking po Check magnesium from this ams lab DC all narcotics and use only tylenol Once stable will consider dc of lovenox and resume plavix for stroke prevention Prog poor pt is dnr and dni Transfer pt to my service WIll discuss with family about over all goals of care etc Multiple discussions held with family before innumerable number of times Consult Acknowledgment - Thank you for your consult request.
--- NOTE | 2016-07-06 14:18 | NUR ---
1000- DR. LYLE NOTIFIED OF B/P . IVF RUNNING AT 75 ML/HR. CONTINUE TO MONITOR. NO NEW ORDERS 1230- DR. LYLE NOTIFIED OF RECTAL TEM 101.1. TYLENOL GIVEN.
--- NOTE | 2016-07-06 14:19 | NUR ---
1415- DR LYLE NOTIFIED OF VS. T 101.7, HR 80, RR 18, B/P 82/38, O2 SAT 94 ON 1L NC. SALINE BOLUS TO BE ORDERED.
--- NOTE | 2016-07-06 15:51 | NUR ---
1420- DR. LYLE NOTIFIED OF POSITIVE BLOOD CULTURE FROM 07/05. 1 SET OF 2. GRAM NEGATIVE RODS 1500- VS T 100.2, B/P . DR LYLE UPDATED.
--- NOTE | 2016-07-06 20:15 | NUR ---
1900 PT BP 106/42 TEMP 101.6. GAMBLING DEALER TASHIA MADE AWARE .NS BOLUS ORDERED AND INFUSING. TYLENOL GIVEN PER ORDER . HEAT LOWERED BLANKETS REMOVED
--- NOTE | 2016-07-06 21:06 | NUR ---
LATE ENTRY AT 2009 PT TEMP INCREASED TO 102.1 WITH BP 86/40. PT LETHARGIC . O2 SAT 88%NC ON 1L. RR= 20. RR CALLED AT 2021. EKG DONE . IN ROOM. DECISON MADE TO TRANSFER PATIENT TO ICU. ALL BELONGINGS WITH PT .REPORT GIVEN TO VONNIE .
--- NOTE | 2016-07-06 21:18 | Event Note ---
Event Note Event Note: Situation Rapid response is called at around 8:22PM, I was there with patient when it was called Brief: Patient is recieving fluids since morning despite which his blood pressure is getting worse. After receiving 3L of fluids, 4th running his BP is 86/38mmHg, HR 76 Upon examination He is much more lethargic, responding to painful stimuli. Cachexic Temp 102, BP 76/38mmHg, Pulse 76, saturating well on 2L of NC Heart - S1&S2 heard, muffled Lungs - rhonchi present at bases Assessment and plan Patient condition is deteriorating despite aggressive hydration. Lacitic acid is 1.1. A decision was made to transfer the patient to ICU after informing , and family Family agreed for central line and pressors Spoke with son - verónica Arnett The above plan is in agreement with Dr. Fenton (my resident ) and myself.
[2016-07-06 22:58] LABS: ABSOLUTE BASOPHIL COUNT 0 /CUMM (0.0-0.2); ABSOLUTE EOSINOPHIL COUNT 0.1 /CUMM (0.0-0.7); ABSOLUTE GRANULOCYTE CT 10.8 /CUMM (1.4-6.5); ABSOLUTE LYMPH COUNT 0.6 /CUMM (1.2-3.4); ABSOLUTE MONOCYTE COUNT 0.7 /CUMM (0.10-0.60); BASOPHIL % 0.1 % (0.0-2.0); EOSINOPHIL % 1.1 % (0-5); GRANULOCYTE % 87.9 % (42.2-75.2); HEMATOCRIT 27.7 % (42-52); MEAN CORPUSCULAR HGB 33.3 PG (27.0-31.0); MEAN CORPUSCULAR VOLUME 100.9 FL (80.0-94.0); MEAN PLATELET VOLUME 8.1 FL (7.4-10.4); PLATELET COUNT 155 /CUMM (130-400); RBC DISTRIBUTION WIDTH 15.6 % (11.5-14.5); RED BLOOD CELL CT 2.74 /CUMM (4.70-6.10); WHITE BLOOD CELL COUNT 12.3 /CUMM (4.8-10.8)
--- NOTE | 2016-07-06 23:14 | NUR ---
Patient arrived to ICU room 109 as a transfer from [facility] for hypotension. Patient is Alert and confused, agitated and combative. There is a 1:1 sitter at the bedside. Patient arrives with 2 patent peripheral IV's and IV bolus infusing. Patient is in a sinus rhythm with a BBB with HR in 60's. BP is 108/60 manually upon arrival. Patient is on 2LNC, with an audible expiratory wheeze. A Granado is placed when patient arrives and output is 100ml of cloudy yellow urine. Patient is also places into soft bilateral wrists for pulling at lines at this time. There is a LAC above the right eye from a previous fall, otherwise skin is intact with trace gen edema. Patient is NPO at this time pending a swallow eval. No distress noted at this time, will cont to closely monitor.
[2016-07-07] VITALS: BP 100/60
--- NOTE | 2016-07-07 01:08 | NUR ---
PT RESTLESS AND UNCOOPERATIVE. C/O PAIN ON HIS LEFT SHOULDER. TYLENOL IV GIVEN. ZYPREXA 2.5MG IM GIVEN WELL FOR RESTLESSNESS. BILATERAL SOFT WRIST RESTRAINT ON AND SITTER AT BEDSIDE. NSR, MANUAL BP 100/60, IVF OF NS AT 100ML/H. ABDOMEN SOFT, NORMOACTIVE BS. JOEY IN PLACE, [place] UO AT THIS TIME.
[2016-07-07 05:12] LABS: ABSOLUTE BASOPHIL COUNT 0 /CUMM (0.0-0.2); ABSOLUTE EOSINOPHIL COUNT 0.2 /CUMM (0.0-0.7); ABSOLUTE LYMPH COUNT 0.6 /CUMM (1.2-3.4); ABSOLUTE MONOCYTE COUNT 0.4 /CUMM (0.10-0.60); BASOPHIL % 0.1 % (0.0-2.0); EOSINOPHIL % 2.2 % (0-5); GRANULOCYTE % 88.2 % (42.2-75.2); HEMATOCRIT 27.2 % (42-52); MEAN CORPUSCULAR HGB 33.7 PG (27.0-31.0); MEAN CORPUSCULAR HGB CONC 33.5 G/DL (33.0-37.0); MEAN CORPUSCULAR VOLUME 100.5 FL (80.0-94.0); PLATELET COUNT 153 /CUMM (130-400); RBC DISTRIBUTION WIDTH 15.5 % (11.5-14.5); RED BLOOD CELL CT 2.71 /CUMM (4.70-6.10); WHITE BLOOD CELL COUNT 10.2 /CUMM (4.8-10.8)
--- NOTE | 2016-07-07 07:47 | NUR ---
Physical Therapy: Pt's chart reviewed this morning for treatment. Pt has been transfered to ICU. Will place pt on hold at this time from skilled PT per protocol. Please reconsult when pt is medically stable and appropriate. Thank you.
[2016-07-07 08:00] VITALS: BP 130/66
--- NOTE | 2016-07-07 11:09 | PN- Pulmonary ---
Subjective HPI/Critical Care Issues: Tmax 102 Pt transferred to icu for better monitoring Did receive fluid recusitation yesterday as he was slightly hypotensive NOw bp improved Lactic acid was slightly elevated now normal Still has delirium but better Still has difficulty maintainng his air was with gurgling at times Pt npo Blood culture has gram neg rods Objective Current Medications: Current Medications Sig/Chirag Start time Last Medication Dose Route Stop Time Status Admin Acetaminophen 1,000 MG Q6-PRN PRN 07/06 2315 AC 07/07 IV 0000 Acetaminophen 650 MG .STK-MED ONE 07/06 1855 DC PO 07/06 1856 Acetaminophen 650 MG .STK-MED ONE 07/06 1223 DC PO 07/06 1224 Acetaminophen 650 MG Q6P PRN 07/05 2200 AC 07/06 PO 1905 Albuterol Sulfate 3 ML TID 07/06 1000 AC 07/07 INH 0807 Atorvastatin Calcium 40 MG 1700 07/06 1700 AC 07/06 PO 1738 Carvedilol 6.25 MG BID 07/06 1000 DC PO Ceftazidime 1,000 MG Q12H 07/06 0800 AC 07/07 IV 0843 Cholecalciferol 1,000 IU DAILY 07/06 1000 AC 07/06 PO 1005 Cyanocobalamin 1,000 MCG DAILY 07/06 1000 AC 07/06 PO 1005 Dextrose/Sodium 1,000 ML Q20H 07/06 2315 DC 07/06 Chloride IV 2340 Dextrose/Sodium 1,000 ML Q13H 07/06 1100 DC 07/06 Chloride IV 1234 Enoxaparin Sodium 30 MG DAILY 07/06 1000 AC 07/06 SC 1005 Guaifenesin 10 ML .STK-MED ONE 07/06 1735 DC PO 07/06 1736 Guaifenesin 10 ML .STK-MED ONE 07/06 1224 DC PO 07/06 1225 Guaifenesin 10 ML Q6H 07/05 2315 AC 07/06 PO 1738 Ipratropium Barry 2.5 ML TID 07/06 1000 AC 07/07 INH 0807 Magnesium Sulfate 1 GM ONCE ONE 07/07 0800 AC Dextrose/Water 100 ML IV 07/07 1159 Olanzapine 2.5 MG ONCE ONE 07/07 2345 AC 07/07 IM 07/07 2346 0027 Olanzapine 2.5 MG Q8P PRN 07/05 2330 AC 07/06 PO 1250 Oxycodone HCl 5 MG Q6H PRN 07/05 2200 DC 07/05 PO 2311 Sodium Chloride 1,000 ML Q10H 07/07 0015 AC 07/07 IV 0037 Sodium Chloride 1,000 ML BOLUS ONE 07/06 2130 DC 07/06 IV 07/06 2329 2148 Sodium Chloride 1,000 ML BOLUS ONE 07/06 2115 CAN IV 07/06 2214 Sodium Chloride 1,000 ML BOLUS ONE 07/06 1900 DC 07/06 IV 07/06 2059 1905 Sodium Chloride 1,000 ML BOLUS ONE 07/06 1430 DC 07/06 IV 07/06 1629 1425 Tamsulosin HCl 0.4 MG 1700 07/06 1700 CAN PO Vancomycin HCl 1,000 MG DAILY 07/06 1000 DC 07/06 Dextrose/Water 250 ML IV 1005 Vital Signs & I&O Last 24 Hrs of Vitals and I&O: Vital Signs Date Time Temp Pulse Resp B/P Pulse O2 O2 Flow FiO2 Ox Delivery Rate 07/07 1048 Nasal 1.0L Cannula 07/07 0813 95 Nasal 2.0L Cannula 07/07 0800 97 Nasal 2.0L Cannula 07/07 0800 76 26 130/66 97 Nasal 2.0L Cannula 07/07 0400 97 Nasal 2.0L Cannula 07/07 0000 95 Nasal 3.0L Cannula 07/07 0000 98.3 62 26 100/60 95 Nasal 3.0L Cannula 07/06 2110 94 Nasal 2.0L Cannula 07/06 2017 102.1 86/42 07/06 1999 102.0 07/06 1905 101.6 07/06 1900 102.1 86/40 07/06 1900 93 Nasal 1.0L Cannula 07/06 1622 120/58 07/06 1600 Nasal 1.0L Cannula 07/06 1534 Nasal 1.0L Cannula 07/06 1522 98.3 68 20 125/70 92 07/06 1513 100.2 90/48 07/06 1411 101.7 80 18 82/38 94 Nasal 1.0L Cannula 07/06 1408 101.7 07/06 1315 Nasal 1.0L Cannula 07/06 1234 101.1 07/06 1230 101.1 Intake & Output 07/07 1600 07/07 0800 07/07 0000 Intake Total 800 1000 Output Total 250 120 Balance 550 880 Intake, IV 800 1000 Output, Urine 250 120 Laboratory Tests 07/07 07/07 07/06 0430 0030 2135 Chemistry Sodium (137 - 145 mmol/L) 139 Potassium (3.5 - 5.1 mmol/L) 3.9 Chloride (98 - 107 mmol/L) 109 H Carbon Dioxide (22 - 30 mmol/L) 21 L Anion Gap (5 - 16) 8 BUN (9 - 20 mg/dL) 28 H Creatinine (0.7 - 1.2 mg/dL) 1.4 H Estimated GFR (>60 ml/min) 48 L Glucose (65 - 99 mg/dL) 90 Lactic Acid (0.7 - 2.1 mmol/L) 1.1 2.5 H Calcium (8.4 - 10.2 mg/dL) 8.0 L Phosphorus (2.5 - 4.5 mg/dL) 2.5 Magnesium (1.6 - 2.3 mg/dL) 1.6 Total Bilirubin (0.2 - 1.3 mg/dL) 0.9 AST (17 - 59 U/L) 37 ALT (21 - 72 U/L) 42 Troponin I (<0.11 ng/ml) 0.10 Albumin (3.5 - 5.0 g/dL) 2.3 L Hematology CBC w Diff MAN DIFF ORDERED WBC (4.8 - 10.8 /CUMM) 10.2 RBC (4.70 - 6.10 /CUMM) 2.71 L Hgb (14.0 - 18.0 G/DL) 9.1 L Hct (42 - 52 %) 27.2 L MCV (80.0 - 94.0 FL) 100.5 H MCH (27.0 - 31.0 PG) 33.7 H RDW (11.5 - 14.5 %) 15.5 H Plt Count (130 - 400 /CUMM) 153 MPV (7.4 - 10.4 FL) 8.0 Gran % (42.2 - 75.2 %) 88.2 H Lymphocytes % (20.5 - 51.1 %) 6.0 L Monocytes % (1.7 - 9.3 %) 3.5 Eosinophils % (0 - 5 %) 2.2 Basophils % (0.0 - 2.0 %) 0.1 Absolute Granulocytes (1.4 - 6.5 /CUMM) 9.0 H Segmented Neutrophils (42.2 - 75.2 %) 85 H Band Neutrophils (0.0 - 5.0 %) 2 Absolute Lymphocytes (1.2 - 3.4 /CUMM) 0.6 L Lymphocytes (20.5 - 51.1 %) 4 L Monocytes (1.7 - 9.3 %) 4 Absolute Monocytes (0.10 - 0.60 /CUMM) 0.4 Eosinophils (0 - 5.0 %) 5 Absolute Eosinophils (0.0 - 0.7 /CUMM) 0.2 Absolute Basophils (0.0 - 0.2 /CUMM) 0 Platelet Estimate (ADEQUATE) ADEQUATE Polychromasia 1+ Poikilocytosis 2+ Anisocytosis 1+ Macrocytic Cells 1+ Ovalocytes 1+ [place] Cells 1+ PUBS MCHC (33.0 - 37.0 G/DL) 33.5 Other Body Source Fld Total RBCs Counted (%) 100 07/065 2112 1929 Chemistry Sodium (137 - 145 mmol/L) 138 Cancelled Potassium (3.5 - 5.1 mmol/L) 5.0 Cancelled Chloride (98 - 107 mmol/L) 109 H Cancelled Carbon Dioxide (22 - 30 mmol/L) 22 Cancelled Anion Gap (5 - 16) 7 Cancelled BUN (9 - 20 mg/dL) 29 H Cancelled Creatinine (0.7 - 1.2 mg/dL) 1.5 H Cancelled Estimated GFR (>60 ml/min) 44 L BUN/Creatinine Ratio Cancelled Glucose (65 - 99 mg/dL) 109 H Lactic Acid (0.7 - 2.1 mmol/L) 1.1 Calcium (8.4 - 10.2 mg/dL) 8.4 Phosphorus (2.5 - 4.5 mg/dL) 2.7 Magnesium (1.6 - 2.3 mg/dL) 1.7 Total Bilirubin (0.2 - 1.3 mg/dL) 1.0 AST (17 - 59 U/L) 32 ALT (21 - 72 U/L) 36 Albumin (3.5 - 5.0 g/dL) 2.6 L Hematology CBC w Diff NO MAN DIFF REQ WBC (4.8 - 10.8 /CUMM) 12.3 H RBC (4.70 - 6.10 /CUMM) 2.74 L Hgb (14.0 - 18.0 G/DL) 9.1 L Hct (42 - 52 %) 27.7 L MCV (80.0 - 94.0 FL) 100.9 H MCH (27.0 - 31.0 PG) 33.3 H RDW (11.5 - 14.5 %) 15.6 H Plt Count (130 - 400 /CUMM) 155 MPV (7.4 - 10.4 FL) 8.1 Gran % (42.2 - 75.2 %) 87.9 H Lymphocytes % (20.5 - 51.1 %) 4.9 L Monocytes % (1.7 - 9.3 %) 6.0 Eosinophils % (0 - 5 %) 1.1 Basophils % (0.0 - 2.0 %) 0.1 Absolute Granulocytes (1.4 - 6.5 /CUMM) 10.8 H Absolute Lymphocytes (1.2 - 3.4 /CUMM) 0.6 L Absolute Monocytes (0.10 - 0.60 /CUMM) 0.7 H Absolute Eosinophils (0.0 - 0.7 /CUMM) 0.1 Absolute Basophils (0.0 - 0.2 /CUMM) 0 PUBS MCHC (33.0 - 37.0 G/DL) 33.0 07/06 07/06 1610 0610 Chemistry Sodium (137 - 145 mmol/L) 140 Potassium (3.5 - 5.1 mmol/L) 3.8 Chloride (98 - 107 mmol/L) 108 H Carbon Dioxide (22 - 30 mmol/L) 23 Anion Gap (5 - 16) 9 BUN (9 - 20 mg/dL) 30 H Creatinine (0.7 - 1.2 mg/dL) 1.4 H Estimated GFR (>60 ml/min) 48 L BUN/Creatinine Ratio (7 - 25 %) 21.4 Lactic Acid (0.7 - 2.1 mmol/L) 1.4 Magnesium (1.6 - 2.3 mg/dL) 1.6 Hematology CBC w Diff MAN DIFF ORDERED WBC (4.8 - 10.8 /CUMM) 15.0 H RBC (4.70 - 6.10 /CUMM) 2.92 L Hgb (14.0 - 18.0 G/DL) 9.9 L Hct (42 - 52 %) 29.3 L MCV (80.0 - 94.0 FL) 100.2 H MCH (27.0 - 31.0 PG) 33.8 H RDW (11.5 - 14.5 %) 15.4 H Plt Count (130 - 400 /CUMM) 168 MPV (7.4 - 10.4 FL) 8.1 Gran % (42.2 - 75.2 %) 91.7 H Lymphocytes % (20.5 - 51.1 %) 3.4 L Monocytes % (1.7 - 9.3 %) 4.4 Eosinophils % (0 - 5 %) 0.4 Basophils % (0.0 - 2.0 %) 0.1 Absolute Granulocytes (1.4 - 6.5 /CUMM) 13.8 H Segmented Neutrophils (42.2 - 75.2 %) 66 Band Neutrophils (0.0 - 5.0 %) 21 H Absolute Lymphocytes (1.2 - 3.4 /CUMM) 0.5 L Lymphocytes (20.5 - 51.1 %) 6 L Monocytes (1.7 - 9.3 %) 6 Absolute Monocytes (0.10 - 0.60 /CUMM) 0.7 H Eosinophils (0 - 5.0 %) 1 Absolute Eosinophils (0.0 - 0.7 /CUMM) 0.1 Absolute Basophils (0.0 - 0.2 /CUMM) 0 Platelet Estimate (ADEQUATE) VERIFIED BY SMEAR Polychromasia 1+ Poikilocytosis 1+ Anisocytosis 1+ Macrocytic Cells 1+ Ovalocytes 1+ [place] Cells 1+ PUBS MCHC (33.0 - 37.0 G/DL) 33.7 07/05 07/05 193 1511 Chemistry Sodium (137 - 145 mmol/L) 139 Potassium (3.5 - 5.1 mmol/L) 4.9 Chloride (98 - 107 mmol/L) 105 Carbon Dioxide (22 - 30 mmol/L) 27 Anion Gap (5 - 16) 7 BUN (9 - 20 mg/dL) 31 H Creatinine (0.7 - 1.2 mg/dL) 1.5 H Estimated GFR (>60 ml/min) 44 L BUN/Creatinine Ratio (7 - 25 %) 20.7 Glucose (65 - 99 mg/dL) 107 H Calcium (8.4 - 10.2 mg/dL) 9.2 Total Bilirubin (0.2 - 1.3 mg/dL) 0.9 AST (17 - 59 U/L) 26 ALT (21 - 72 U/L) 42 Alkaline Phosphatase (< 127 U/L) 120 Troponin I (<0.11 ng/ml) 0.03 Total Protein (6.3 - 8.2 g/dL) 6.1 L Albumin (3.5 - 5.0 g/dL) 3.3 L Globulin (1.9 - 4.2 gm/dL) 2.8 Albumin/Globulin Ratio (1.1 - 2.2 %) 1.2 Coagulation PT (9.4 - 12.5 SEC) 11.7 INR (0.90 - 1.17) 1.12 APTT (25 - 37 SEC) 27 Hematology CBC w Diff NO MAN DIFF REQ WBC (4.8 - 10.8 /CUMM) 9.6 RBC (4.70 - 6.10 /CUMM) 3.29 L Hgb (14.0 - 18.0 G/DL) 11.1 L Hct (42 - 52 %) 33.2 L MCV (80.0 - 94.0 FL) 100.9 H MCH (27.0 - 31.0 PG) 33.6 H RDW (11.5 - 14.5 %) 15.4 H Plt Count (130 - 400 /CUMM) 198 MPV (7.4 - 10.4 FL) 7.5 Gran % (42.2 - 75.2 %) 72.8 Lymphocytes % (20.5 - 51.1 %) 9.3 L Monocytes % (1.7 - 9.3 %) 8.6 Eosinophils % (0 - 5 %) 9.2 H Basophils % (0.0 - 2.0 %) 0.1 Absolute Granulocytes (1.4 - 6.5 /CUMM) 7.0 H Absolute Lymphocytes (1.2 - 3.4 /CUMM) 0.9 L Absolute Monocytes (0.10 - 0.60 /CUMM) 0.8 H Absolute Eosinophils (0.0 - 0.7 /CUMM) 0.9 Absolute Basophils (0.0 - 0.2 /CUMM) 0 PUBS MCHC (33.0 - 37.0 G/DL) 33.3 Urines Urine Color (YEL,AMB,STR) YEL Urine Clarity (CLEAR) HAZY H Urine pH (5.0 - 8.0) 8.5 H Ur Specific [place] (1.001 - 1.035) 1.010 Urine Protein (NEG,<30 MG/DL) 30 H Urine Ketones (NEG) NEG Urine Nitrite (NEG) NEG Urine Bilirubin (NEG) NEG Urine Urobilinogen (0.1 - 1.0 EU/dl) 2.0 H Ur Leukocyte Esterase (NEG) LARGE H Ur Microscopic SEDIMENT EXAMINED Urine RBC (0 - 5 /HPF) 5-10 H Urine WBC (0 - 2 /HPF) 10-15 H Ur Epithelial Cells (NONE,FEW) FEW Hyaline Casts (0/LPF) RARE H Urine Hemoglobin (NEG) SMALL H Urine Glucose (N MG/DL) NEG Microbiology Date/Time Procedure - Status Source Growth 07/06 2129 Urine Culture - RES URINE ROUT 07/06 2129 Surveillance Culture - RECD UPPER RESP 07/06 2129 Surveillance Culture - RECD GI 07/06 1655 Urine Culture - RES URINE ROUT 07/06 0949 Respiratory Culture - COLB LOWER RESP 07/06 0949 Gram Stain - COLB LOWER RESP 07/05 1930 Legionella Antigen - COMP URINE ROUT 07/05 1929 Streptococcus pneumoniae Antigen (M - COMP URINE ROUT 07/05 1929 Blood Culture - RES BLOOD GRAM NEGATIVE RODS 07/05 1924 Blood Culture - RES BLOOD Impression/Plan Impression/Plan Impression/Plan: Physical Exam General Appearance delirious not oriented Skin No Rashes, No Breakdown HEENT Atraumatic, PERRLA Neck Supple Cardiovascular Regular Rate, Normal S1, Normal S2, No Murmurs Lungs Normal Air Movement, bilateral rhonchi present, crackles both bases Abdomen Normal Bowel Sounds, Soft, No Tenderness Neurological Sensation Intact Extremities No Clubbing, No Cyanosis, unilateral edema present on the right leg Vascular Pulses Symmetrical IMPRESSION This is a gentleman with chronic kidney disease, previous ischemic heart disease with previous MA, hyperlipidemia, peripheral vascular disease, previous AAA repair, who is on antiplatelet therapy for peripheral vascular disease, hypertension hyperlipidemia now here with a hip fracture s/p surg on 05/30, subsequently had delirium for very prolonged period due to multiple factors, previous urinary retention with UTI with previous urology evaluation, now comes in with * Significant delirium with worsening dementia, now with gram neg bactemia with sepsis now improving with ivf and abx. Urinalysis suggestive of UTI. Patient may also have aspiration pneumonitis as he has worsening dementia with delirium causing him to have aspiration. * Previous urinary retention on Flomax with previous post void residue being high, was followed by urology, now with holden. 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 No recent history suggestive of atrial fibrillation or recurrent embolic phenomenon. Patient was on antiplatelet therapy before and this needs to be started when he is able to take po. He is on lovenox dialy for dvt prophylaxis due to hip surg, He is off plavix now due to recurrent fall and risk of bleeding with two anticoagulants * IHD with cardiomyopathy * Hypertension and hyperlipidemia stable, Ischemic heart disease hypertension stable, Previous aaa * CT findings of the chest has a stable nodule with mild enlargement of lymphnodes with stable thoracic aortic aneurysm * Sig djd cspine REC Cont abx ceftaz Change ivf to d5 normal saline at 60 cc Swallow eval Chlorhexide mouth wash bid daily Keep hob up 2 grams of magnesium Ekg daily Olanzapine only for severe delirium if not hold it COnt lovenox Nebs atc DC spiranolactone, for now ONce he can take po will start flomax Use only tylenol for pain Once stable will consider dc of lovenox and resume plavix for stroke prevention Prog poor pt is dnr and dni Discussed with family in detail last night Prog poor
[2016-07-07 16:00] VITALS: BP 120/60
--- NOTE | 2016-07-07 17:56 | PN- Resident CRCU ---
Subjective HPI/CRCU Issues: Patient ICU for: Hypotension, blood culture 1 with gram-negative angelina. Patient was agitated earlier this AM. He was shouting and yelling and required one-to-one sitter and bilateral soft restraints. He seemed to calm down as the day progressed. When his daughter was at bedside he was able to respond adequately to questions. Patient denies any complaints other than thirst. Objective Vital Signs & I&O Last 8 Hrs of Vitals and I&O: Intake & Output 07/07 1600 Intake Total 800 Output Total 600 Balance 200 Intake, IV 800 Intake, Oral 0 Output, Urine 600 Exam General Appearance: well developed/nourished, awake, moderate distress Head: atraumatic, normal appearance Ears, Nose, Throat: normal pharynx Neck: normal inspection Respiratory: normal breath sounds, chest non-tender Cardiovascular: regular rate/rhythm Gastrointestinal: normal bowel sounds, soft, non-tender Extremities: normal inspection IV Drips IV Drips: NS at 125 Nutrition Nutrition: NPO Current Medications: Current Medications Sig/Chirag Start time Last Medication Dose Route Stop Time Status Admin Acetaminophen 1,000 MG .STK-MED ONE 07/07 1130 DC IV 07/07 1131 Acetaminophen 1,000 MG Q6-PRN PRN 07/06 2315 AC 07/08 IV 0425 Acetaminophen 650 MG Q6P PRN 07/05 2200 AC 07/06 PO 1905 Albuterol Sulfate 3 ML TID 07/06 1000 AC 07/08 INH 0153 Atorvastatin Calcium 40 MG 1700 07/06 1700 AC 07/06 PO 1738 Ceftazidime 1,000 MG Q12H 07/06 0800 AC 07/07 IV 1949 Cholecalciferol 1,000 IU DAILY 07/06 1000 AC 07/06 PO 1005 Cyanocobalamin 1,000 MCG DAILY 07/06 1000 AC 07/06 PO 1005 Dextrose/Sodium 1,000 ML .[id number] 07/07 1600 AC 07/07 Chloride IV 1500 Enoxaparin Sodium 30 MG DAILY 07/06 1000 AC 07/07 SC 1135 Guaifenesin 10 ML Q6H 07/05 2315 AC 07/06 PO 1738 Ipratropium [place] 2.5 ML TID 07/06 1000 AC 07/08 INH 0153 Magnesium Sulfate 1 GM ONCE ONE 07/07 1500 DC 07/07 Dextrose/Water 100 ML IV 07/07 1859 1500 Magnesium Sulfate 1 GM ONCE ONE 07/07 0800 DC 07/07 Dextrose/Water 100 ML IV 07/07 1159 0930 Olanzapine 2.5 MG ONCE ONE 07/07 2345 DC 07/07 IM 07/07 2346 0027 Olanzapine 2.5 MG Q8P PRN 07/05 2330 AC 07/06 PO 1250 Sodium Chloride 1,000 ML Q20H 07/07 1530 DC IV Sodium Chloride 1,000 ML Q10H 07/07 0015 DC 07/07 IV 1232 Impression/Plan Impression/Problem List Impression: This is 86 year male with past medical history of hypertension, hyperlipidemia, CAD, TIA, recent hip fracture status post ORIF, BPH, CKD presented from [facility] after sustaining to unwitnessed fall resulting in head strike right head laceration also with one-week history of congestion associated with cough and low-grade fever and change in mental status and lethargic found to have left basilar opacity on x-ray suspicious for pneumonia. Patient spiked fever of 102.2 in ER suggestive of acute infection. He was then admitted to general medicine floor for further management. However at night his blood pressure continued to remain low, and after 3 L of resuscitation he continued to remain in the 90s over 40s range. Given concern for septic shock, patient was transferred to ICU for possible IJ and pressors. However,in ICU patient's vitals stabilized without requiring any pressors, his blood pressure remained in 110 to 130 range today with fluids. PLAN ID/ Respiratory: Pt satting well on 2 L NC. His cxr raises concern for l. basilar opacity and on admission had Tmax 102.2. This AM he failed swallow eval further supporting dx of aspiration PNA. 1.) Healthcare related pneumonia: Patient comes from and [facility]. 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 pneumonia. He was initially on Vanco and ceftaz edema. But now he seems to be improving on ceftaz edema alone. We will continue to monitor. If he becomes febrile, or does not show signs of improvement we will add vancomycin to his regimen. * Continue with IV ceftazidime * Bcx x 1 with GNR. Follow up second culture. await speciation. * Negative flu, strep and legionella. * Pulmonology consult * Continue TRC nebs * And oxygen as needed keep saturations above 92%. 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 He had prolonged stay in June 2016 with Proteus that was generally sensitive to everything but Macrobid. This time he does have large leukocyte esterase and 5-15 white cells. However he has negative nitrite and denies any symptoms. Further complicating the issue is the blood culture 1 out of 2 growing gram-negative angelina. Most likely source of this pathogen would be the system. Currently we are treating with ceftaz and patient is improving. We will continue with this therapy. * Follow final urinary cultures * Continue Flomax CVS: He has history of CAD., Hyperlipidemia, hypertension, TIA * Continue home dose Coreg 6.25 twice a day if blood pressure tolerates * Hold spironolactone due to renal failure, resumed once kidney function improves * Plavix on hold as patient currently on anticoagulation for DVT prophylaxis post surgery. * Continue statin Musculoskeletal: Patient has history of unwitnessed mechanical falls. He also has a recent history of ORIF. * Physical therapy evaluation * Status post ORIF * Continue DVT prophylaxis GI: Patient is currently nothing by mouth pending swallow eval. If he fails family has been informed that they have to consider safer forms of feeding. * Continue nothing by mouth Neuro: Patient has significant agitation and combativeness. He has frequent admissions for delirium and so far all workup has been negative. Patient is an bilateral soft restraints with a sitter this AM. He was agitated and trying to pull out his lines. If patient is significantly agitated, he usually gets olanzapine. However, and family is aware, his QTc is prolonged. This a.m. QTc at 506. Family has been counseled about risks and benefits of antipsychotic medication in elderly, but they prefer symptomatic management of his agitation. * Continue Zyprexa when necessary severe agitation * Daily EKG for QTc * Today given 2 mg of magnesium Renal: Patient has history of CK D. This a.m. his creatinine was at 1.4. He came in at 1.5. * Avoid nephrotoxic agent * Gentle IV hydration Hold spironolactone and Lasix * Recheck renal function in a.m. Subcutaneous Lovenox DNR/DNI npo Problem List: 1. Status post hip surgery 2. Multifactorial gait disorder 3. Altered mental status 4. Pneumonia 5. Delirium Pain Ratin Pain Location: NONE Tomorrow's Labs & Rationales: ICU CBC Plan DVT/Prophylaxis: pharmacological
[2016-07-08] VITALS: BP 148/70
--- NOTE | 2016-07-08 04:00 | NUR ---
TEMP ELEVATED. 101.4 ORALLY.102 BY TEMPORAL THERMOMETER. NOTIFIED.IV TYLENOL GIVEN PER EMAR.
[2016-07-08 06:19] LABS: ABSOLUTE BASOPHIL COUNT 0 /CUMM (0.0-0.2); ABSOLUTE EOSINOPHIL COUNT 0.2 /CUMM (0.0-0.7); ABSOLUTE GRANULOCYTE CT 7.7 /CUMM (1.4-6.5); ABSOLUTE LYMPH COUNT 0.5 /CUMM (1.2-3.4); ABSOLUTE MONOCYTE COUNT 0.3 /CUMM (0.10-0.60); BASOPHIL % 0.3 % (0.0-2.0); EOSINOPHIL % 2.7 % (0-5); GRANULOCYTE % 87.5 % (42.2-75.2); HEMATOCRIT 30.3 % (42-52); MEAN CORPUSCULAR HGB 33.5 PG (27.0-31.0); MEAN CORPUSCULAR HGB CONC 33.6 G/DL (33.0-37.0); MEAN CORPUSCULAR VOLUME 99.6 FL (80.0-94.0); MEAN PLATELET VOLUME 8.3 FL (7.4-10.4); PLATELET COUNT 158 /CUMM (130-400); RBC DISTRIBUTION WIDTH 15.3 % (11.5-14.5); RED BLOOD CELL CT 3.05 /CUMM (4.70-6.10); WHITE BLOOD CELL COUNT 8.8 /CUMM (4.8-10.8)
[2016-07-08 08:00] VITALS: BP 106/66
--- NOTE | 2016-07-08 10:31 | NUR ---
0800: RECEIVED PT IN BED. ALERT, CONFUSED. PT HALLUCINATING AND PICKING AT BED SHEETS AND IRA COAT. SPEECH GARBBLED AT TIMES. ABLE TO FOLLOW COMMANDS SUCH SQUEEZE HANDS. ON 2L NC. EXP WHEEZE/RHONCHI. PT UNABLE TO EXPECTORATE SECRETIONS. 1 DEGREE AV BLOCK ON MONITOR. TEMPORAL ARTERY TEMP 100.3 T MAX OVER NIGHT WAS 102. NO BM SINCE 07-04, ABD SOFT, +BS. COOK IN PLACE DRAINING ADEQUATE AMOUNTS OF CLEAR YELLOW URINE. PT RECEIVING D5-NS @ 60ML/HR. LACERATION ABOVE RIGHT EYE, STERI STRIPS IN PLACE. RIGHT HIP SURGICAL SITE HEALED. BRUISE NOTED TO LEFT LOWER BACK. SKIN OTHERWISE INTACT, NO EDEMA. + PULSES. WRIST RESTRAINTS IN PLACE TO PREVENT PT FROM PULLING AT LINES/COOK.
--- NOTE | 2016-07-08 11:03 | NUR ---
PT GETTING MORE AGITATED, YELLING OUT. CONFUSED. REORIENTED.
--- NOTE | 2016-07-08 11:05 | PN- Pulmonary ---
Subjective HPI/Critical Care Issues: DOing little better Continues to be febrile Still has difficulty maintaining airway at time More awake at times confused. Objective Current Medications: Current Medications Sig/Chirag Start time Last Medication Dose Route Stop Time Status Admin Acetaminophen 1,000 MG .STK-MED ONE 07/07 1130 DC IV 07/07 1131 Acetaminophen 1,000 MG Q6-PRN PRN 07/06 2315 AC 07/08 IV 0425 Acetaminophen 650 MG Q6P PRN 07/05 2200 AC 07/06 PO 1905 Albuterol Sulfate 3 ML TID 07/06 1000 AC 07/08 INH 0815 Atorvastatin Calcium 40 MG 1700 07/06 1700 AC 07/06 PO 1738 Ceftazidime 1,000 MG Q12H 07/06 0800 AC 07/08 IV 0747 Cholecalciferol 1,000 IU DAILY 07/06 1000 AC 07/06 PO 1005 Cyanocobalamin 1,000 MCG DAILY 07/06 1000 AC 07/06 PO 1005 Dextrose/Sodium 1,000 ML .[id number] 07/07 1600 AC 07/08 Chloride IV 0747 Enoxaparin Sodium 30 MG DAILY 07/06 1000 AC 07/08 SC 0828 Guaifenesin 10 ML Q6H 07/05 2315 AC 07/06 PO 1738 Ipratropium Maceo 2.5 ML TID 07/06 1000 AC 07/08 INH 0815 Magnesium Sulfate 1 GM ONCE ONE 07/07 1500 DC 07/07 Dextrose/Water 100 ML IV 07/07 1859 1500 Magnesium Sulfate 1 GM ONCE ONE 07/07 0800 DC 07/07 Dextrose/Water 100 ML IV 07/07 1159 0930 Olanzapine 2.5 MG ONCE ONE 07/07 2345 DC 07/07 IM 07/07 2346 0027 Olanzapine 2.5 MG Q8P PRN 07/05 2330 AC 07/06 PO 1250 Potassium Phosphate 15 mMol ONE ONE 07/08 0815 AC 07/08 Dextrose/Water 250 ML IV 07/08 1218 0913 Sodium Chloride 1,000 ML Q20H 07/07 1530 DC IV Sodium Chloride 1,000 ML Q10H 07/07 0015 DC 07/07 IV 1232 Vital Signs & I&O Last 24 Hrs of Vitals and I&O: Vital Signs Date Time Temp Pulse Resp B/P Pulse O2 O2 Flow FiO2 Ox Delivery Rate 07/08 0824 97 Nasal 2.0L Cannula 07/08 0800 Nasal 2.0L Cannula 07/08 0800 100.3 80 22 106/66 94 Nasal 2.0L Cannula 07/08 0530 101.5 07/08 0425 102.0 07/08 0400 93 Nasal 2.0L Cannula 07/08 0203 95 Nasal 2.0L Cannula 07/08 0000 95 Nasal 2.0L Cannula 07/08 0000 99.2 65 20 148/70 95 Room Air 07/07 2000 97 Nasal 2.0L Cannula 07/07 1925 95 Nasal 2.0L Cannula 07/07 1600 94 Nasal 2.0L Cannula 07/07 1600 98.8 68 20 120/60 94 Nasal 2.0L Cannula 07/07 1232 100.1 07/07 1200 95 Nasal 2.0L Cannula 07/07 1136 101.0 Intake & Output 07/08 1600 07/08 0800 07/08 0000 Intake Total 583 554 Output Total 550 1055 Balance 33 -501 Intake, IV 583 554 Output, Urine 550 1055 Patient 161 lb Weight Impression/Plan Impression/Plan Impression/Plan: Physical Exam General Appearance delirious not oriented Skin No Rashes, No Breakdown HEENT Atraumatic, PERRLA Neck Supple Cardiovascular Regular Rate, Normal S1, Normal S2, No Murmurs Lungs Normal Air Movement, bilateral rhonchi present, crackles both bases Abdomen Normal Bowel Sounds, Soft, No Tenderness Neurological Sensation Intact Extremities No Clubbing, No Cyanosis, unilateral edema present on the right leg Vascular Pulses Symmetrical IMPRESSION This is a gentleman with chronic kidney disease, previous ischemic heart disease with previous FL, hyperlipidemia, peripheral vascular disease, previous AAA repair, who is on antiplatelet therapy for peripheral vascular disease, hypertension hyperlipidemia now here with a hip fracture s/p surg on 05/30, subsequently had delirium for very prolonged period due to multiple factors, previous urinary retention with UTI with previous urology evaluation, now comes in with * Significant delirium with worsening dementia, now with gram neg bactemia with sepsis now improving with ivf and abx. Urinalysis suggestive of UTI. Patient may also have aspiration pneumonitis as he has worsening dementia with delirium causing him to have aspiration. Blood cultures now growing Proteus, which is sensitive to ceftriaxone. We'll switch him. * Continues to have fever. Rule out other causes of infection which includes biliary tract versus upper urinary tract. * Previous urinary retention on Flomax with previous post void residue being high, was followed by urology, now with holden. 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 No recent history suggestive of atrial fibrillation or recurrent embolic phenomenon. Patient was on antiplatelet therapy before and this needs to be started when he is able to take po. He is on lovenox dialy for dvt prophylaxis due to hip surg, He is off plavix now due to recurrent fall and risk of bleeding with two anticoagulants * IHD with cardiomyopathy * Hypertension and hyperlipidemia stable, Ischemic heart disease hypertension stable, Previous aaa * CT findings of the chest has a stable nodule with mild enlargement of lymphnodes with stable thoracic aortic aneurysm * Sig djd cspine REC Cont abx changed to ceftriaxone Change ivf to d5 normal saline at 60 cc Swallow eval Chlorhexide mouth wash bid daily Keep hob up Ultrasound of abd to eval biliary and upper urinary tract Ekg daily, keep magnesium more than 2 PICC line today in anticipation of pressors. Repeat sputum culture. If it continues to spike we will repeat a chest x-ray and evaluate him at the CT scan of the chest abdomen and pelvis to evaluate any abscesses versus empyema, etc. over the weekend Olanzapine only for severe delirium if not hold it COnt lovenox Nebs atc DC spiranolactone, for now ONce he can take po will start flomax Use only tylenol for pain Prog poor pt is dnr and dni Discussed with family in detail at the bedside. We will continue current medications and treatment plan. If the patient is stable he can go to the floor. Discussed with family. Overall goals of care discussed. Patient does not improve and if he goes into progressive respiratory her renal failure. Family would wish more of a comfort care. Till then they would want to continue aggressive medical therapy Prog poor
--- NOTE | 2016-07-08 11:11 | NUR ---
PT THINKS HE IS AT WORK, YELLING OUT. PT IS NPO, ZYPREXA IS ONLY ORDERED PO. MD ALVAREZ MADE AWARE.
--- NOTE | 2016-07-08 11:28 | Cons- Infect Disease ---
General Information and HPI Consulting Request Date of Consult: 07/08/16 Requested By: MARSHA VASQUEZ,NAY Egan Reason for Consult: Persistent fever on Ceftazidime for Proteus sepsis/pneumonia Source of Information: patient, old records Exam Limitations: confusion History of Present Illness: This is an 86-year-old man with a history of coronary artery disease, peripheral vascular disease, chronic renal insufficiency, and urethral stricture, status post DVIU 1 1/2 years prior to admission, hospitalized one month prior to admission after a fall resulting in a right hip fracture, status post ORIF, with hospital course complicated by urinary retention requiring a temporary Granado catheter, and treated with a week of Cefuroxime for a Proteus UTI (with urinalysis revealing 1-3 white blood cells), discharged to a rehabilitation facility, readmitted on July 05 after several falls at the facility with cough, congestion and lethargy also reported, and with urine cultures sent 2 days and 1 day prior to admission negative. On admission he was initially afebrile but spiked to 102.2 L later that night. O2 sat was 89% on room air. Laboratory data revealed a white blood cell count of 10,000, BUN/creatinine 31 and 1.5, with normal liver enzymes. Urinalysis 5-10 RBC/10-15 WBCs. Chest x- ray revealed a left basilar opacity. CT of the head, maxillofacial area and cervical spine were negative for any acute process. X-ray of the left shoulder was negative. He was begun on Vancomycin and Ceftazidime and admitted to the floor. On July 06 one blood culture was reported positive for gram-negative rods, and the Vancomycin was discontinued. Later in the day he was found to be hypotensive and was transferred to the ICU. He responded to IV fluids and his blood pressure has remained stable since. His white blood cell count did initially increase to 15,000 on July 06 but has since normalized. He is unable to provide any history secondary to confusion and disorientation. Allergies/Medications Allergies: Coded Allergies: oxycodone (From PERCOCET) (HALLUCINATIONS 05/30/16) Home Med List: Acetaminophen (Acephen) 650 MG SUPP.RECT 1 SUPP SD Q6H PRN PAIN/TEMP>101 ( Reported) Acetaminophen (Tylenol) 325 MG TABLET 2 TAB PO Q6H PRN PAIN/TEMP>101 ( Reported) Atorvastatin Calcium 40 MG TABLET 1 TAB PO DAILY CHOLESTEROL (Reported) Bisacodyl (Dulcolax) 10 MG SUPP.RECT 1 SUP RC DAILY PRN CONSTIPATION ( Reported) Carvedilol (Coreg) 3.125 MG TABLET 6.25 MG PO BID BLOOD PRESSURE Cholecalciferol (Vitamin D3) 1,000 UNIT TABLET 1 TAB PO DAILY bone strength ( Reported) Cyanocobalamin (Vitamin B-12) 1,000 MCG TABLET 1 TAB PO DAILY SUPPLEMENT ( Reported) Enoxaparin Sodium (Lovenox) 30 MG/0.3 ML SYRINGE 30 MG SC DAILY anticoagulation Furosemide 20 MG TABLET 1 TAB PO Monday [facility] Guaifenesin (Kimber-Tussin) 100 MG/5 ML LIQUID 10 ML PO Q6H UNKNOWN (Reported) Ipratropium/Albuterol Sulfate (Iprat-Albut 0.5-3(2.5) MG/3 Ml) 0.5 MG-3 MG (2.5 MG BASE)/3 ML AMPUL.NEB 3 ML INH Q8H PRN SOB/WHEEZE (Reported) Magnesium Hydroxide (Milk Of Magnesia) 400 MG/5 ML ORAL.SUSP 30 ML PO Q3D GI (Reported) Na Phos,M-B/Na Phos,Di-Ba (Fleet Enema) 19 GRAM-7 GRAM/118 ML ENEMA 1 E RC DAILY PRN CONSTIPATION (Reported) Olanzapine 2.5 MG TABLET 1 TAB PO Q8P PRN AGITATION Spironolactone (Aldactone) 25 MG TABLET 1 TAB PO DAILY [facility] Tamsulosin HCl (Flomax) 0.4 MG CAP.ER.24H 1 TAB PO 1700 BPH Past History Travel History Traveled to [place] past 21 day No Medical History Blood Transfusion Hx: No Neurological: CVA, TIA EENT: NONE Cardiovascular: CHF, hypertension, hyperlipidemia, myocardial infarction, PVD, peripheral vascular disease HEART FAILURE Respiratory: pulmonary nodule? 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 [facility] Facility Who Do You Live With? self Services at Home: Nursing Primary Language: Kiswahili Smoking Status: Former Smoker ETOH Use: denies use Illicit Drug Use: denies illicit drug use Functional Ability ADLs Needs Assist: dressing, eating, toileting, bathing. Ambulation: walker IADLs Needs Assist: shopping, housework, finances, food prep, telephone, transportation, medication admin. Review of Systems Comments Unobtainable Exam & Diagnostic Data Last 24 Hrs of Vital Signs/I&O Vital Signs Date Time Temp Pulse Resp B/P Pulse O2 O2 Flow FiO2 Ox Delivery Rate 07/08 0824 97 Nasal 2.0L Cannula 07/08 0800 Nasal 2.0L Cannula 07/08 0800 100.3 80 22 106/66 94 Nasal 2.0L Cannula 07/08 0530 101.5 07/08 0425 102.0 07/08 0400 93 Nasal 2.0L Cannula 07/08 0203 95 Nasal 2.0L Cannula 07/08 0000 95 Nasal 2.0L Cannula 07/08 0000 99.2 65 20 148/70 95 Room Air 07/07 2000 97 Nasal 2.0L Cannula 07/07 1925 95 Nasal 2.0L Cannula 07/07 1600 94 Nasal 2.0L Cannula 07/07 1600 98.8 68 20 120/60 94 Nasal 2.0L Cannula 07/07 1232 100.1 07/07 1200 95 Nasal 2.0L Cannula 07/07 1136 101.0 Intake & Output 07/08 1600 07/08 0800 07/08 0000 Intake Total 583 554 Output Total 550 1055 Balance 33 -501 Intake, IV 583 554 Output, Urine 550 1055 Patient 161 lb Weight Physical Exam Other Physical Findings: He is lethargic but arousable, confused and disoriented, but in no acute distress. MAXIMUM TEMPERATURE 102. Skin reveals no rash. HEENT exam is negative. Neck is supple with no adenopathy. Lungs scattered rhonchi and wheezes. Heart regular rhythm with no murmur. Abdomen is soft, nontender with positive bowel sounds. Back no CVA tenderness. Extremities no cyanosis, clubbing or edema; right hip incision clean, with no erythema, induration or drainage. Neuro is without focality. Granado catheter is in place. Last 24 Hours of Lab Results: Laboratory Tests 07/08 0430 Chemistry Sodium (137 - 145 mmol/L) 140 Potassium (3.5 - 5.1 mmol/L) 4.4 Chloride (98 - 107 mmol/L) 111 H Carbon Dioxide (22 - 30 mmol/L) 21 L Anion Gap (5 - 16) 9 BUN (9 - 20 mg/dL) 24 H Creatinine (0.7 - 1.2 mg/dL) 1.2 Estimated GFR (>60 ml/min) 57 L Glucose (65 - 99 mg/dL) 113 H Calcium (8.4 - 10.2 mg/dL) 8.6 Phosphorus (2.5 - 4.5 mg/dL) 2.3 L Magnesium (1.6 - 2.3 mg/dL) 2.2 Total Bilirubin (0.2 - 1.3 mg/dL) 0.9 AST (17 - 59 U/L) 46 ALT (21 - 72 U/L) 47 Albumin (3.5 - 5.0 g/dL) 2.7 L Hematology CBC w Diff MAN DIFF ORDERED WBC (4.8 - 10.8 /CUMM) 8.8 RBC (4.70 - 6.10 /CUMM) 3.05 L Hgb (14.0 - 18.0 G/DL) 10.2 L Hct (42 - 52 %) 30.3 L MCV (80.0 - 94.0 FL) 99.6 H MCH (27.0 - 31.0 PG) 33.5 H RDW (11.5 - 14.5 %) 15.3 H Plt Count (130 - 400 /CUMM) 158 MPV (7.4 - 10.4 FL) 8.3 Gran % (42.2 - 75.2 %) 87.5 H Lymphocytes % (20.5 - 51.1 %) 5.9 L Monocytes % (1.7 - 9.3 %) 3.6 Eosinophils % (0 - 5 %) 2.7 Basophils % (0.0 - 2.0 %) 0.3 Absolute Granulocytes (1.4 - 6.5 /CUMM) 7.7 H Segmented Neutrophils (42.2 - 75.2 %) 88 H Band Neutrophils (0.0 - 5.0 %) 4 Absolute Lymphocytes (1.2 - 3.4 /CUMM) 0.5 L Lymphocytes (20.5 - 51.1 %) 4 L Monocytes (1.7 - 9.3 %) 1 L Absolute Monocytes (0.10 - 0.60 /CUMM) 0.3 Eosinophils (0 - 5.0 %) 3 Absolute Eosinophils (0.0 - 0.7 /CUMM) 0.2 Absolute Basophils (0.0 - 0.2 /CUMM) 0 Platelet Estimate (ADEQUATE) ADEQUATE Polychromasia 1+ Poikilocytosis 2+ Ovalocytes 1+ Uzair Cells 1+ Elliptocytes FEW PUBS MCHC (33.0 - 37.0 G/DL) 33.6 Other Body Source Fld Total RBCs Counted (%) 100 Last 24 Hours of Wilner Results: Blood cultures July 05 one bottle positive for Proteus mirabilis sensitive to all antibiotics tested Urine strep pneumo antigen and Legionella antigen July 05 negative Rapid flu swab July 06 negative Urine culture July 06 2 negative Sputum culture July 07 positive for diphtheroids Diagnostic Data Recent Imaging Findings: Chest x-ray July 06, personally reviewed, revealed a left basilar opacity. CT of the head, maxillofacial area and cervical spine were negative for any acute process. X-ray of the left shoulder was negative. Assessment/Plan Assessment/Plan Impression: This is an 86-year-old man with a history of coronary artery disease, chronic renal insufficiency, urinary retention, and urethral stricture, status post DVIU , hospitalized over one month prior to admission after a fall resulting in a right hip fracture, requiring ORIF, with his hospital course complicated by urinary retention and a urinary tract infection secondary to Proteus, treated with a week of oral antibiotics, admitted on July 05 after several falls at the halfway, found to be febrile with a left lower lobe density on chest x- ray and with one blood culture positive for Proteus. His clinical picture is consistent with gram-negative sepsis, though the source is not clear. It may be pulmonary, with a report of cough and congestion prior to admission, though his chest x-ray reveals a minimal left lower lobe density and his sputum culture, obtained 2 days after admission, is only growing diphtheroids, which is suggestive of contamination. Of note Rhodococcus equi, formally known as Corynebacterium equi, can cause infections, including pneumonia, in immunocompromised hosts and this organism should be ruled out. A complication of pneumonia, such as empyema, must be considered as well, though, again, his chest x-ray is not impressive. A urinary source is possible, though his urine cultures obtained both 1 and 2 days prior to admission and 1 day after admission (after antibiotics were begun) are negative. The possibility of obstruction of the genitourinary tract must be considered and he should be further evaluated for this. His right hip incision is clean with no evidence of inflammation, making this an unlikely source. With gram-negative rods in the blood a GI source is also possible, though he has no apparent GI symptoms and his abdominal exam appears to be benign. Suggestion: 1. Would pursue a CT of the chest, abdomen and pelvis 2. Would have the lab rule out Rhodococcus equi (have already requested) 3. Repeat blood cultures 2 4. Discontinue Ceftazidime 5. Begin Unasyn 3 g IV every 8 hours pending above Consult Acknowledgment - Thank you for your consult request.
--- NOTE | 2016-07-08 11:56 | NUR ---
po zyprexa given crushed in apple sauce. pt tolerated well. will monitor.
[2016-07-08 12:00] VITALS: BP 160/80
--- NOTE | 2016-07-08 12:12 | NUR ---
urine in holden tubing red in color. md espinosa aware. will monitor.
--- NOTE | 2016-07-08 13:32 | PN- Resident CRCU ---
Subjective HPI/CRCU Issues: Pt in ICU for: sepsis This AM pt was agitated and confused. However, he was lucid enough to pass his swallow eval. He recieved one dose of his PRN Olanzapine. His EKG was similar to previous and QT was WNL. Objective Vital Signs & I&O Last 8 Hrs of Vitals and I&O: Intake & Output 07/08 1600 Intake Total 701 Output Total 450 Balance 251 Intake, IV 701 Number 0 Bowel Movements Output, Urine 450 Patient 73.028 kg Weight Exam General Appearance: well developed/nourished, no apparent distress, alert, awake Head: atraumatic, normal appearance Ears, Nose, Throat: normal ENT inspection Neck: supple Respiratory: chest non-tender, no respiratory distress Cardiovascular: regular rate/rhythm Gastrointestinal: soft, non-tender Extremities: normal range of motion Other Physical Findings: difficult to perform physical exam this AM as pt is significantly agitated. IV (Peripheral) Site: clean IV Drips IV Drips: ceftaz Nutrition Nutrition: NPO Current Medications: Current Medications Sig/Chirag Start time Last Medication Dose Route Stop Time Status Admin Acetaminophen 1,000 MG .STK-MED ONE 07/08 0422 DC IV 07/08 0423 Acetaminophen 1,000 MG Q6-PRN PRN 07/06 2315 AC 07/08 IV 0425 Acetaminophen 650 MG Q6P PRN 07/05 2200 AC 07/06 PO 1905 Albuterol Sulfate 3 ML TID 07/06 1000 AC 07/08 INH 1254 Ampicillin Sodium/ 3,000 MG Q6 07/08 1800 AC Sulbactam Sodium IV Sodium Chloride 100 ML Atorvastatin Calcium 40 MG 1700 07/06 1700 AC 07/08 PO 1558 Ceftazidime 1,000 MG Q12H 07/06 0800 DC 07/08 IV 0747 Chlorhexidine 5 ML BID 07/08 1356 AC 07/08 Gluconate PO 1517 Cholecalciferol 1,000 IU DAILY 07/06 1000 AC 07/06 PO 1005 Cyanocobalamin 1,000 MCG DAILY 07/06 1000 AC 07/06 PO 1005 Dextrose/Sodium 1,000 ML .[id number] 07/07 1600 AC 07/08 Chloride IV 0747 Enoxaparin Sodium 30 MG DAILY 07/06 1000 AC 07/08 SC 0828 Guaifenesin 10 ML Q6H 07/05 2315 AC 07/06 PO 1738 Ipratropium Heidrick 2.5 ML TID 07/06 1000 AC 07/08 INH 1254 Magnesium Sulfate 1 GM ONCE ONE 07/07 1500 DC 07/07 Dextrose/Water 100 ML IV 07/07 1859 1500 Olanzapine 2.5 MG ONCE ONE 07/07 2345 DC 07/07 IM 07/07 2346 0027 Olanzapine 2.5 MG Q8P PRN 07/05 2330 AC 07/08 PO 1153 Potassium Phosphate 15 mMol ONE ONE 07/08 0815 DC 07/08 Dextrose/Water 250 ML IV 07/08 1218 0913 Impression/Plan Impression/Problem List Impression: This is 86 year male with past medical history of hypertension, hyperlipidemia, CAD, TIA, recent hip fracture status post ORIF, BPH, CKD presented from [facility] after sustaining to unwitnessed fall resulting in head strike right head laceration also with one-week history of congestion associated with cough and low-grade fever and change in mental status and lethargic found to have left basilar opacity on x-ray suspicious for pneumonia. Patient spiked fever of 102.2 in ER suggestive of acute infection. He was then admitted to general medicine floor for further management. However at night his blood pressure continued to remain low, and after 3 L of resuscitation he continued to remain in the 90s over 40s range. Given concern for septic shock, patient was transferred to ICU for possible IJ and pressors. However,in ICU patient's vitals stabilized without requiring any pressors, his blood pressure remained in 110 to 130 range today with fluids. PLAN ID/ Respiratory: Pt satting well on 2 L NC. Initially, his CXR raises concern for l. basilar opacity; initially failed swallow eval, concern for aspiration pna. Last night had Tmax and fever of 102. 1.) Healthcare related pneumonia: Patient comes from and [facility]. 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 pneumonia. He was initially on Vanco and ceftaz; then continued on ceftaz alone. This is day 3 of abx and he had fever of 102; however white count improving; in fact normal this a.m. Lungs still sound crackles and wheezes. LRC showing diphtheroids. There is concern for Rhodococcus equi. We will wait further lab confirmation and consider switching patient to vancomycin if necessary. * Switch from ceftaz to Unasyn * Bcx x 1 with GNR. Follow up second culture. await speciation. * Redraw cultures * Negative flu, strep and legionella. * Pulmonology consult * Continue TRC nebs * And oxygen as needed keep saturations above 92%. 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 He had prolonged stay in June 2016 with Proteus that was generally sensitive to everything but Macrobid. At that time he had large leukocyte esterase and 5-15 white cells. However he has negative nitrite and denies any symptoms. Note that he has one blood culture growing Proteus that is similar in sensitivity to the one grown earlier this past year from urine. Most likely source of this pathogen would be the system either urinary or biliary origin. * Follow final urinary cultures * Continue Flomax once he tolerates by mouth * Abdominal ultrasound * If abdominal ultrasound negative and patient continues to spike fevers we will do CAT scan: Of chest, abdomen, pelvis, and thigh. * Unasyn for antibiotic therapy CVS: He has history of CAD., Hyperlipidemia, hypertension, TIA * Continue home dose Coreg 6.25 twice a day if blood pressure tolerates * Hold spironolactone due to renal failure, resumed once kidney function improves * Plavix on hold as patient currently on anticoagulation for DVT prophylaxis post surgery. * Continue statin Musculoskeletal: Patient has history of unwitnessed mechanical falls. He also has a recent history of ORIF. * Physical therapy evaluation * Status post ORIF * Continue DVT prophylaxis GI: * Patient passes swallow eval this AM. We will advance his diet to pure and honey. We will resume his by mouth meds. Neuro: Patient has significant agitation and combativeness. He has frequent admissions for delirium and so far all workup has been negative. Patient is an bilateral soft restraints with a sitter this AM. If patient is significantly agitated, he usually gets olanzapine. Family has been counseled about risks and benefits of antipsychotic medication in elderly, but they prefer symptomatic management of his agitation. * Continue Zyprexa when necessary severe agitation * Daily EKG for QTc * Keep magnesium within normal limits Renal: Patient has history of CK D. This a.m. his creatinine was at 1.4. He came in at 1.2. * Avoid nephrotoxic agent * Gentle IV hydration Hold spironolactone and Lasix * Recheck renal function in a.m. Subcutaneous Lovenox DNR/DNI npo Problem List: 1. Fracture of greater trochanter of right femur 2. Pulmonary nodules 3. Abdominal aortic aneurysm 4. Closed right hip fracture Pain Ratin Tomorrow's Labs & Rationales: cbc icu Plan DVT/Prophylaxis: pharmacological
--- NOTE | 2016-07-08 14:11 | NUR ---
DL PICC TO BE PLACED BY LAURA AZEVEDO AT THIS TIME. THIS RN AT BEDSIDE.
--- NOTE | 2016-07-08 15:41 | RADIOLOGY REPORT ---
EXAMINATION: XR PORTABLE CHEST CLINICAL INFORMATION: Evaluate PICC line placement. COMPARISON: 07/06/2016. TECHNIQUE: Portable view of the chest was obtained. FINDINGS: A right-sided PICC line is identified, its tip is likely at the upper right atrium. The heart appears mildly prominent. There is central pulmonary vascular prominence with diffuse increase in interstitial markings throughout the lungs bilaterally. Findings suggest pulmonary edema, clinical correlation recommended. No focal infiltrate is identified. IMPRESSION: Right-sided PICC line appears in satisfactory position. Increasing pulmonary markings suggest pulmonary edema. Other acute interstitial processes, atypical pneumonia/viral pneumonia are not excluded. Clinical correlation warranted.
[2016-07-08 16:00] VITALS: BP 140/60
--- NOTE | 2016-07-08 16:13 | ULTRASOUND REPORT ---
EXAMINATION: US ABDOMEN COMPLETE CLINICAL INFORMATION: Hematuria. COMPARISON: CT of abdomen and pelvis from 11/27/2012. TECHNIQUE: Real-time imaging of the abdominal viscera. FINDINGS: PANCREAS: The pancreas is hyperechoic from fatty replacement. ABDOMINAL AORTA: The visualized proximal abdominal aorta is normal in caliber and measures 2.1 cm AP. INFERIOR VENA CAVA: Visualized portion in the upper abdomen is unremarkable. LIVER: The demonstrates normal size, contour and echotexture. No focal lesion or intrahepatic biliary duct dilatation. GALLBLADDER: Gallbladder is distended to approximately 5 cm transverse diameter. No gallbladder wall edema, cholelithiasis, pericholecystic fluid or Lisa's sign. COMMON BILE DUCT: Normal in caliber measuring 5-6 mm in diameter. RIGHT KIDNEY: The right kidney measures 10.3 cm in length and has normal cortical thickness and cortical echotexture. No evidence of focal proximal lesion, hydronephrosis or nephrolithiasis.. LEFT KIDNEY: Left kidney measures at least 8.8 cm in length; it is suboptimally visualized due to bowel gas. The kidney has normal cortical thickness and echotexture. No evidence of focal hepatic lesion, hydronephrosis or nephrolithiasis. SPLEEN: The spleen measures 9.3 cm in maximum dimension. FREE FLUID: None. IMPRESSION: 1. Gallbladder hydrops without evidence of sludge, cholelithiasis or cholecystitis. 2. Common bile duct is normal in size (0.5 cm diameter). 3. No evidence of nephrolithiasis or upper urinary tract obstruction.
--- NOTE | 2016-07-08 22:37 | NUR ---
INCREASED TEMP OF 101.4. MEDICATED W/ TYLENOL ORDERED. WILL CONTINUE TO MONITOR.
[2016-07-09 01:02] VITALS: BP 130/60
--- NOTE | 2016-07-09 04:27 | Event Note ---
Event Note Event Note: At 4 AM, nursing staff noted that patient had gone into atrial fibrillation on the athletic monitor. Patient was seen and examined at bedside. He was asymptomatic. Lung exam showed scattered wheezes throughout bilateral lung coyle. Patient was already receiving TRC. IV fluids, D5NS @ 60 cc/hr, was discontinued. EKG was ordered which confirmed atrial fibrillation with rapid ventricular response. Of note, atrial fibrillation was new-onset this admission. Patient's heart rate ranged between 100-120s. Troponins were ordered and came back negative. Dr. Dlil was contacted who suggested starting patient on metoprolol for rate control. Per pharmacy recommendations, patient was started on metoprolol 25 mg PO BID. Cardiology consult with Dr. Ruiz was placed. CXR was ordered which showed stable appearing pulmonary edema and small bilateral pleural effusions. Patient was administered 20 mg of IV Lasix.
[2016-07-09 05:03] LABS: ABSOLUTE BASOPHIL COUNT 0 /CUMM (0.0-0.2); ABSOLUTE EOSINOPHIL COUNT 0.5 /CUMM (0.0-0.7); ABSOLUTE GRANULOCYTE CT 4.9 /CUMM (1.4-6.5); ABSOLUTE LYMPH COUNT 0.9 /CUMM (1.2-3.4); ABSOLUTE MONOCYTE COUNT 0.6 /CUMM (0.10-0.60); BASOPHIL % 0 % (0.0-2.0); EOSINOPHIL % 7.3 % (0-5); GRANULOCYTE % 70.5 % (42.2-75.2); HEMATOCRIT 29.9 % (42-52); MEAN CORPUSCULAR HGB 33.2 PG (27.0-31.0); MEAN CORPUSCULAR HGB CONC 33.5 G/DL (33.0-37.0); MEAN CORPUSCULAR VOLUME 99.2 FL (80.0-94.0); PLATELET COUNT 153 /CUMM (130-400); RBC DISTRIBUTION WIDTH 15.2 % (11.5-14.5); RED BLOOD CELL CT 3.01 /CUMM (4.70-6.10)
--- NOTE | 2016-07-09 06:31 | RADIOLOGY REPORT ---
EXAMINATION: XR PORTABLE CHEST CLINICAL INFORMATION: Shortness of breath with new onset atrial fibrillation COMPARISON: Chest x-ray 07/08/2016 TECHNIQUE: Portable AP view of the chest was obtained. FINDINGS: Right PICC line tip terminates at the cavoatrial junction. Similar moderate interstitial pulmonary edema and small bilateral pleural effusions. Unchanged retrocardiac opacity. Cardiac silhouette is enlarged and stable. There are no acute osseous findings. IMPRESSION: Stable appearing interstitial pulmonary edema, small bilateral pleural effusions, and dense retrocardiac airspace opacity.
--- NOTE | 2016-07-09 06:48 | NUR ---
LATE ENTRY: AT 4 AM, PT WENT INTO A-FIB ON THE MONITOR. HR-100-123 DENIES CHEST PAIN OR SOB. MD MURGUIA AWARE AND UP TO SEE PATIENT. EKG AND TROPONIN ORDERED, LOPRESSOR 25 MG ORDERED AND ADMINISTERED. PT CONTINUES TO WHEEZE DESPITE TRC, FLUIDS D/C'D PER MD MURGUIA. CHEST XRAY ORDERED.
[2016-07-09 06:57] VITALS: BP 115/72
--- NOTE | 2016-07-09 12:51 | PN- Att Addend ---
Attending Addendum Attending Brief Note Patient unable to give complaints at baseline. He appears mildly distress. General Appearance: Lethargic and sleepy Skin: Grossly normal HEENT: PEERLA Neck: Supple, No JVD Cardiovascular: Regular Rate, Normal S1, Normal S2, No Murmurs Lungs: Clear to Auscultation, Normal Air Movement Abdomen: Normal Bowel Sounds, Soft, No Tenderness Extremities: No Clubbing, No Cyanosis, No Edema Vascular: Normal Pulses Assessment Proteus in blood on all of 2 bottles. Unclear source. However his vitals are stable and afebrile. Ultrasound suggested hydrops without any obstruction or cholecystitis. Surgery was consulted who thinks this is the likely source of Proteus sepsis. Patient appears to be responding to Unasyn and we will continue current antibiotics and also obtain CAT scan abdomen and pelvis with contrast. Unfortunately he has new onset atrial fibrillation in the setting of sepsis. Currently 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 with metoprolol and on heparin drip. Plan Continue Unasyn CAT scan chest, abdomen and pelvis with IV contrast Continue to monitor vitals and urine output Continue supportive care Follow consults recommendations Continue metoprolol and heparin drip DNI/DNR Current Medications Sig/Chirag Start time Last Medication Dose Route Stop Time Status Admin Acetaminophen 1,000 MG .STK-MED ONE 07/08 2219 DC IV 07/08 2220 Acetaminophen 1,000 MG Q6-PRN PRN 07/06 2315 AC 07/08 IV 2223 Acetaminophen 650 MG Q6P PRN 07/05 2200 AC 07/06 PO 1905 Albuterol Sulfate 3 ML TID 07/06 1000 AC 07/09 INH 0837 Ampicillin Sodium/ 3,000 MG Q6 07/08 1800 AC 07/09 Sulbactam Sodium IV 1131 Sodium Chloride 100 ML Atorvastatin Calcium 40 MG 1700 07/06 1700 AC 07/08 PO 1558 Chlorhexidine 5 ML BID 07/08 1356 AC 07/09 Gluconate PO 0758 Cholecalciferol 1,000 IU DAILY 07/06 1000 AC 07/09 PO 0757 Cyanocobalamin 1,000 MCG DAILY 07/06 1000 AC 07/09 PO 0757 Dextrose/Sodium 1,000 ML .[id number] 07/07 1600 DC 07/08 Chloride IV 0747 Enoxaparin Sodium 30 MG DAILY 07/06 1000 DC 07/09 SC 0757 Furosemide 20 MG ONCE ONE 07/09 0800 DC 07/09 IV PUSH 07/09 0801 0809 Guaifenesin 10 ML Q6H 07/05 2315 AC 07/09 PO 1132 Heparin Sodium 25,000 UNIT Q24H 07/09 1030 AC 07/09 (Porcine) IV 1230 Sodium Chloride 500 ML Ipratropium [place] 2.5 ML TID 07/06 1000 AC 07/09 INH 0837 Metoprolol Tartrate 25 MG BID 07/09 1000 DC PO Metoprolol Tartrate 25 MG BID 07/09 0530 AC 07/09 PO 0758 Olanzapine 2.5 MG Q8P PRN 07/05 2330 AC 07/08 PO 2323 Laboratory Tests 07/09 07/09 0440 0440 Chemistry Sodium (137 - 145 mmol/L) 141 Potassium (3.5 - 5.1 mmol/L) 4.1 Chloride (98 - 107 mmol/L) 112 H Carbon Dioxide (22 - 30 mmol/L) 22 Anion Gap (5 - 16) 7 BUN (9 - 20 mg/dL) 18 Creatinine (0.7 - 1.2 mg/dL) 1.1 Estimated GFR (>60 ml/min) > 60 Glucose (65 - 99 mg/dL) 114 H Calcium (8.4 - 10.2 mg/dL) 8.6 Phosphorus (2.5 - 4.5 mg/dL) 2.3 L Magnesium (1.6 - 2.3 mg/dL) 2.0 Total Bilirubin (0.2 - 1.3 mg/dL) 0.9 AST (17 - 59 U/L) 32 ALT (21 - 72 U/L) 45 Troponin I (<0.11 ng/ml) 0.07 Albumin (3.5 - 5.0 g/dL) 2.5 L Hematology CBC w Diff NO MAN DIFF REQ WBC (4.8 - 10.8 /CUMM) 7.0 RBC (4.70 - 6.10 /CUMM) 3.01 L Hgb (14.0 - 18.0 G/DL) 10.0 L Hct (42 - 52 %) 29.9 L MCV (80.0 - 94.0 FL) 99.2 H MCH (27.0 - 31.0 PG) 33.2 H RDW (11.5 - 14.5 %) 15.2 H Plt Count (130 - 400 /CUMM) 153 MPV (7.4 - 10.4 FL) 8.0 Gran % (42.2 - 75.2 %) 70.5 Lymphocytes % (20.5 - 51.1 %) 13.3 L Monocytes % (1.7 - 9.3 %) 8.9 Eosinophils % (0 - 5 %) 7.3 H Basophils % (0.0 - 2.0 %) 0 L Absolute Granulocytes (1.4 - 6.5 /CUMM) 4.9 Absolute Lymphocytes (1.2 - 3.4 /CUMM) 0.9 L Absolute Monocytes (0.10 - 0.60 /CUMM) 0.6 Absolute Eosinophils (0.0 - 0.7 /CUMM) 0.5 Absolute Basophils (0.0 - 0.2 /CUMM) 0 PUBS MCHC (33.0 - 37.0 G/DL) 33.5 Vital Signs Date Time Temp Pulse Resp B/P Pulse O2 O2 Flow FiO2 Ox Delivery Rate 07/09 0842 97 Nasal 2.0L Cannula 07/09 0800 98 Nasal 2.0L Cannula 07/09 0758 98.9 96 19 115/72 07/09 0657 98.9 96 19 115/72 98 Nasal 2.0L Cannula 07/09 0532 105 130/70 07/09 0410 95 Nasal 2.0L Cannula 07/09 0400 98.9 07/09 0400 Nasal 2.0L Cannula 07/09 0102 99.6 60 15 130/60 96 Nasal 2.0L Cannula 07/09 0000 96 Nasal 2.0L Cannula 07/08 2328 100.2 07/08 2223 101.4 07/08 2000 95 Nasal 2.0L Cannula 07/08 1926 94 Nasal 2.0L Cannula 07/08 1600 Nasal 2.0L Cannula 07/08 1600 99.5 76 24 140/60 97 Nasal 2.0L Cannula
--- NOTE | 2016-07-09 13:50 | Cons- Cardiology ---
General Information and HPI Consulting Request Date of Consult: 07/09/16 Requested By: MARSHA VASQUEZ,NAY Egan Reason for Consult: New onset atrial fibrillation Source of Information: old records Exam Limitations: unable to give history, not alert/orientated History of Present Illness: This is an 86 y/o male with a reported PMH of CAD/ME, TIA, BPH, PVD, CKD, AAA repair, s/p recent mechanical fall with hip fx s/p ORIF with subsequent intermittent delerium/agitation. The patient is currently unable to provide any history. He was recently discharged to short-term rehabilitation and returned to [facility] on July 05 with a chief complaint of recurrent falls along with fever and worsening lethargy. He was started on treatment for gram- negative sepsis. Last night the patient was noted to have converted to the rapid atrial fibrillation. This appears to be a new arrhythmia for him. On my bedside interview with the patient this morning he was lethargic and unable to provide any history. He did respond to voice but was unable to follow any commands. Allergies/Medications Allergies: Coded Allergies: oxycodone (From PERCOCET) (HALLUCINATIONS 05/30/16) Home Med List: Acetaminophen (Acephen) 650 MG SUPP.RECT 1 SUPP ID Q6H PRN PAIN/TEMP>101 ( Reported) Acetaminophen (Tylenol) 325 MG TABLET 2 TAB PO Q6H PRN PAIN/TEMP>101 ( Reported) Atorvastatin Calcium 40 MG TABLET 1 TAB PO DAILY CHOLESTEROL (Reported) Bisacodyl (Dulcolax) 10 MG SUPP.RECT 1 SUP RC DAILY PRN CONSTIPATION ( Reported) Carvedilol (Coreg) 3.125 MG TABLET 6.25 MG PO BID BLOOD PRESSURE Cholecalciferol (Vitamin D3) 1,000 UNIT TABLET 1 TAB PO DAILY bone strength ( Reported) Cyanocobalamin (Vitamin B-12) 1,000 MCG TABLET 1 TAB PO DAILY SUPPLEMENT ( Reported) Enoxaparin Sodium (Lovenox) 30 MG/0.3 ML SYRINGE 30 MG SC DAILY anticoagulation Furosemide 20 MG TABLET 1 TAB PO Monday heart [facility] Guaifenesin (Kimber-Tussin) 100 MG/5 ML LIQUID 10 ML PO Q6H UNKNOWN (Reported) Ipratropium/Albuterol Sulfate (Iprat-Albut 0.5-3(2.5) MG/3 Ml) 0.5 MG-3 MG (2.5 MG BASE)/3 ML AMPUL.NEB 3 ML INH Q8H PRN SOB/WHEEZE (Reported) Magnesium Hydroxide (Milk Of Magnesia) 400 MG/5 ML ORAL.SUSP 30 ML PO Q3D GI (Reported) Na Phos,M-B/Na Phos,Di-Ba (Fleet Enema) 19 GRAM-7 GRAM/118 ML ENEMA 1 E RC DAILY PRN CONSTIPATION (Reported) Olanzapine 2.5 MG TABLET 1 TAB PO Q8P PRN AGITATION Spironolactone (Aldactone) 25 MG TABLET 1 TAB PO DAILY heart health Tamsulosin HCl (Flomax) 0.4 MG CAP.ER.24H 1 TAB PO 1700 BPH Current Medications: Current Medications Sig/Chirag Start time Last Medication Dose Route Stop Time Status Admin Acetaminophen 1,000 MG .STK-MED ONE 07/08 2219 DC IV 07/08 2220 Acetaminophen 1,000 MG Q6-PRN PRN 07/06 2315 07/08 IV 2223 Acetaminophen 650 MG Q6P PRN 07/05 2200 AC 07/06 PO 1905 Albuterol Sulfate 3 ML TID 07/06 1000 AC 07/09 INH 0837 Ampicillin Sodium/ 3,000 MG Q6 07/08 1800 AC 07/09 Sulbactam Sodium IV 1131 Sodium Chloride 100 ML Atorvastatin Calcium 40 MG 1700 07/06 1700 AC 07/08 PO 1558 Chlorhexidine 5 ML BID 07/08 1356 AC 07/09 Gluconate PO 0758 Cholecalciferol 1,000 IU DAILY 07/06 1000 AC 07/09 PO 0757 Cyanocobalamin 1,000 MCG DAILY 07/06 1000 AC 07/09 PO 0757 Dextrose/Sodium 1,000 ML .[id number] 07/07 1600 DC 07/08 Chloride IV 0747 Enoxaparin Sodium 30 MG DAILY 07/06 1000 DC 07/09 SC 0757 Furosemide 20 MG ONCE ONE 07/09 0800 DC 07/09 IV PUSH 07/09 0801 0809 Guaifenesin 10 ML Q6H 07/05 2315 AC 07/09 PO 1132 Heparin Sodium 25,000 UNIT Q24H 07/09 1030 AC 07/09 (Porcine) IV 1230 Sodium Chloride 500 ML Ipratropium [place] 2.5 ML TID 07/06 1000 AC 07/09 INH 0837 Metoprolol Tartrate 25 MG BID 07/09 1000 DC PO Metoprolol Tartrate 25 MG BID 07/09 0530 AC 07/09 PO 0758 Olanzapine 2.5 MG Q8P PRN 07/05 2330 AC 07/08 PO 2323 Phosphate 250 MG PC AND AT BEDTIME 07/09 1300 AC PO Review of Systems Review of Systems: Review of systems as per HPI. The remainder of a 10 point review of systems was reviewed and was otherwise negative. Past History Travel History Traveled to [place] past 21 day No Medical History Blood Transfusion Hx: No Neurological: CVA, TIA EENT: NONE Cardiovascular: CHF, hypertension, hyperlipidemia, myocardial infarction, PVD, peripheral vascular disease HEART FAILURE Respiratory: pulmonary nodule? 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 Who Do You Live With? self Services at Home: Nursing Primary Language: Moldovan Smoking Status: Former Smoker ETOH Use: denies use Illicit Drug Use: denies illicit drug use Functional Ability ADLs Needs Assist: dressing, eating, toileting, bathing. Ambulation: walker IADLs Needs Assist: shopping, housework, finances, food prep, telephone, transportation, medication admin. Exam & Diagnostic Data Vital Signs and I&O Vital Signs Date Time Temp Pulse Resp B/P Pulse O2 O2 Flow FiO2 Ox Delivery Rate 07/09 0842 97 Nasal 2.0L Cannula 07/09 0800 98 Nasal 2.0L Cannula 07/09 0758 98.9 96 19 115/72 07/09 0657 98.9 96 19 11572 98 Nasal 2.0L Cannula 07/09 0532 105 130/70 07/09 0410 95 Nasal 2.0L Cannula 07/09 0400 98.9 07/09 0400 Nasal 2.0L Cannula 07/09 0102 99.6 60 15 130/60 96 Nasal 2.0L Cannula 07/09 0000 96 Nasal 2.0L Cannula 07/08 2328 100.2 07/08 2223 101.4 07/08 1999 95 Nasal 2.0L Cannula 07/08 1926 94 Nasal 2.0L Cannula 07/08 1599 Nasal 2.0L Cannula 07/08 1599 99.5 76 24 140/60 97 Nasal 2.0L Cannula Intake & Output 07/09 0800 07/09 0000 07/08 1600 07/08 0800 07/08 0000 Intake Total 450 240 701 583 554 Output Total 500 260 198 746 7060 Balance -50 -20 251 33 -501 Intake, IV 450 240 701 583 554 Number 0 Bowel Movements Output, Urine 500 260 783 338 7640 Patient 161 lb Weight Physical Exam: General: Lethargic, not following commands Eyes: No obvious scleral icterus. HEENT: No jugular venous distention or abnormal jugular venous pulsations. Cardiovascular: Normal intensity S1/S2. Irregular. Respiratory: Mildly decreased air entry bilaterally Abdomen: no guarding or rebound tenderness. Musculoskeletal: No clubbing or cyanosis noted, no edema Skin: Warm Labs/Wilner Results: Laboratory Tests 07/09 07/09 0440 0440 Chemistry Sodium (137 - 145 mmol/L) 141 Potassium (3.5 - 5.1 mmol/L) 4.1 Chloride (98 - 107 mmol/L) 112 H Carbon Dioxide (22 - 30 mmol/L) 22 Anion Gap (5 - 16) 7 BUN (9 - 20 mg/dL) 18 Creatinine (0.7 - 1.2 mg/dL) 1.1 Estimated GFR (>60 ml/min) > 60 Glucose (65 - 99 mg/dL) 114 H Calcium (8.4 - 10.2 mg/dL) 8.6 Phosphorus (2.5 - 4.5 mg/dL) 2.3 L Magnesium (1.6 - 2.3 mg/dL) 2.0 Total Bilirubin (0.2 - 1.3 mg/dL) 0.9 AST (17 - 59 U/L) 32 ALT (21 - 72 U/L) 45 Alkaline Phosphatase (< 127 U/L) 105 Troponin I (<0.11 ng/ml) 0.07 Albumin (3.5 - 5.0 g/dL) 2.5 L Hematology CBC w Diff NO MAN DIFF REQ WBC (4.8 - 10.8 /CUMM) 7.0 RBC (4.70 - 6.10 /CUMM) 3.01 L Hgb (14.0 - 18.0 G/DL) 10.0 L Hct (42 - 52 %) 29.9 L MCV (80.0 - 94.0 FL) 99.2 H MCH (27.0 - 31.0 PG) 33.2 H RDW (11.5 - 14.5 %) 15.2 H Plt Count (130 - 400 /CUMM) 153 MPV (7.4 - 10.4 FL) 8.0 Gran % (42.2 - 75.2 %) 70.5 Lymphocytes % (20.5 - 51.1 %) 13.3 L Monocytes % (1.7 - 9.3 %) 8.9 Eosinophils % (0 - 5 %) 7.3 H Basophils % (0.0 - 2.0 %) 0 L Absolute Granulocytes (1.4 - 6.5 /CUMM) 4.9 Absolute Lymphocytes (1.2 - 3.4 /CUMM) 0.9 L Absolute Monocytes (0.10 - 0.60 /CUMM) 0.6 Absolute Eosinophils (0.0 - 0.7 /CUMM) 0.5 Absolute Basophils (0.0 - 0.2 /CUMM) 0 PUBS MCHC (33.0 - 37.0 G/DL) 33.5 07/08 0430 Chemistry Sodium (137 - 145 mmol/L) 140 Potassium (3.5 - 5.1 mmol/L) 4.4 Chloride (98 - 107 mmol/L) 111 H Carbon Dioxide (22 - 30 mmol/L) 21 L Anion Gap (5 - 16) 9 BUN (9 - 20 mg/dL) 24 H Creatinine (0.7 - 1.2 mg/dL) 1.2 Estimated GFR (>60 ml/min) 57 L Glucose (65 - 99 mg/dL) 113 H Calcium (8.4 - 10.2 mg/dL) 8.6 Phosphorus (2.5 - 4.5 mg/dL) 2.3 L Magnesium (1.6 - 2.3 mg/dL) 2.2 Total Bilirubin (0.2 - 1.3 mg/dL) 0.9 AST (17 - 59 U/L) 46 ALT (21 - 72 U/L) 47 Albumin (3.5 - 5.0 g/dL) 2.7 L Hematology CBC w Diff MAN DIFF ORDERED WBC (4.8 - 10.8 /CUMM) 8.8 RBC (4.70 - 6.10 /CUMM) 3.05 L Hgb (14.0 - 18.0 G/DL) 10.2 L Hct (42 - 52 %) 30.3 L MCV (80.0 - 94.0 FL) 99.6 H MCH (27.0 - 31.0 PG) 33.5 H RDW (11.5 - 14.5 %) 15.3 H Plt Count (130 - 400 /CUMM) 158 MPV (7.4 - 10.4 FL) 8.3 Gran % (42.2 - 75.2 %) 87.5 H Lymphocytes % (20.5 - 51.1 %) 5.9 L Monocytes % (1.7 - 9.3 %) 3.6 Eosinophils % (0 - 5 %) 2.7 Basophils % (0.0 - 2.0 %) 0.3 Absolute Granulocytes (1.4 - 6.5 /CUMM) 7.7 H Segmented Neutrophils (42.2 - 75.2 %) 88 H Band Neutrophils (0.0 - 5.0 %) 4 Absolute Lymphocytes (1.2 - 3.4 /CUMM) 0.5 L Lymphocytes (20.5 - 51.1 %) 4 L Monocytes (1.7 - 9.3 %) 1 L Absolute Monocytes (0.10 - 0.60 /CUMM) 0.3 Eosinophils (0 - 5.0 %) 3 Absolute Eosinophils (0.0 - 0.7 /CUMM) 0.2 Absolute Basophils (0.0 - 0.2 /CUMM) 0 Platelet Estimate (ADEQUATE) ADEQUATE Polychromasia 1+ Poikilocytosis 2+ Ovalocytes 1+ [place] Cells 1+ Elliptocytes FEW PUBS MCHC (33.0 - 37.0 G/DL) 33.6 Other Body Source Fld Total RBCs Counted (%) 100 Diagnostic Data EKG Results Twelve-lead ECG shows likely atrial fibrillation at 117 bpm with bifascicular block CXR Results IMPRESSION: Stable appearing interstitial pulmonary edema, small bilateral pleural effusions, and dense retrocardiac airspace opacity. Other Results Abdominal ultrasound 1. Gallbladder hydrops without evidence of sludge, cholelithiasis or cholecystitis. 2. Common bile duct is normal in size (0.5 cm diameter). 3. No evidence of nephrolithiasis or upper urinary tract obstruction. Telemetry tracings were personally reviewed and shows sinus rhythm with conversion to atrial fibrillation at approximately 4 AM Assessment/Plan Assessment/Plan 1. AMS with sepsis 2. New onset atrial fibrillation 3. Reported hx of CAD/ME/PVD/AAA repair/?TIA hx 4. HTN/HLD 5. s/p recent mechanical fall with hip fx and ORIF, recurrent falls 6. CKD 7. Bifascicular block, previously noted The patient's new onset atrial fibrillation may have been precipitated by his sepsis. Given his recurrent delirium with recurrent falls he may not be a good candidate for long-term anticoagulation but for the time being we will continue with intravenous heparin to prevent the development of intracardiac thrombus while in atrial fibrillation. Continue on the oral metoprolol for rate control. If the patient is not taking PO well this can be switched to IV Lopressor if needed. He does not appear to be grossly volume overloaded. Would aim to keep his fluid balance even to slightly negative. Given the new arrhythmia would recommend obtaining transthoracic echocardiogram. Can hold the patient's outpatient antiplatelet regimen while he is on IV heparin. Brandon Ruiz MD [facility] Consult Acknowledgment - Thank you for your consult request.
--- NOTE | 2016-07-09 15:33 | PN- Resident CRCU ---
Subjective HPI/CRCU Issues: overnight events - @approximately 4 AM, the patient went into atrial fibrillation. Independent review of the tracing and overnight events revealed that he was having couplets prior to going in atrial fibrillation. He was started on 25 of metoprolol by mouth twice a day which controlled his rate to the high 90s/low 100s. On speaking with the patient, he appeared baseline. He denied any chest pain, feelings of palpitations. He also denied any dyspnea, lightheadedness or dizziness. He denied any abdominal pain, nausea, or vomiting. Troponins were ordered and came back negative. CXR showed stable appearing pulmonary edema and small bilateral pleural effusions for which 20 mg of IV Lasix was given. Patient had a low grade temp overnight 99.6, with Tmax 24h 101.4 @2223. U/S results from last night were reviewed - Gallbladder hydrops without evidence of sludge, cholelithiasis or cholecystitis noted, CBD diameter WNL. No evidence of nephrolithiasis or upper urinary tract obstuction noted. 24 Hour Events: See above Objective Vital Signs & I&O Last 8 Hrs of Vitals and I&O: Intake & Output 07/09 1600 Intake Total 390 Output Total 1950 Balance -1560 Intake, IV 150 Intake, Oral 240 Output, Urine 1950 Exam General Appearance: well developed/nourished, no apparent distress, alert, awake , at baseline - confused at times, disoriented, and cannot follow commmands. Head: atraumatic, normal appearance Neck: normal inspection, supple, JVD (none) Respiratory: no respiratory distress, quiet respiration, no rales or rhonchi noted Cardiovascular: irregularly irregular w/ no MRG appreciated. Gastrointestinal: soft, non-tender, no RUQ tenderness. Extremities: normal inspection, no edema Current Medications: Current Medications Sig/Chirag Start time Last Medication Dose Route Stop Time Status Admin Acetaminophen 1,000 MG .STK-MED ONE 07/08 2219 DC IV 07/08 2220 Acetaminophen 1,000 MG Q6-PRN PRN 07/06 2315 AC 07/09 IV 1635 Acetaminophen 650 MG Q6P PRN 07/05 2200 AC 07/06 PO 1905 Albuterol Sulfate 3 ML TID 07/06 1000 07/09 INH 1338 Ampicillin Sodium/ 3,000 MG Q6 07/08 1800 AC 07/09 Sulbactam Sodium IV 1131 Sodium Chloride 100 ML Atorvastatin Calcium 40 MG 1700 07/06 1700 AC 07/08 PO 1558 Chlorhexidine 5 ML BID 07/08 1356 AC 07/09 Gluconate PO 0758 Cholecalciferol 1,000 IU DAILY 07/06 1000 AC 07/09 PO 0757 Cyanocobalamin 1,000 MCG DAILY 07/06 1000 AC 07/09 PO 0757 Dextrose/Sodium 1,000 ML .[id number] 07/07 1600 DC 07/08 Chloride IV 0747 Enoxaparin Sodium 30 MG DAILY 07/06 1000 DC 07/09 SC 0757 Furosemide 20 MG ONCE ONE 07/09 0800 DC 07/09 IV PUSH 07/09 0801 0809 Guaifenesin 10 ML Q6H 07/05 2315 AC 07/09 PO 1132 Heparin Sodium 25,000 UNIT Q24H 07/09 1030 AC 07/09 (Porcine) IV 1230 Sodium Chloride 500 ML Ipratropium [place] 2.5 ML TID 07/06 1000 AC 07/09 INH 1338 Metoprolol Tartrate 25 MG BID 07/09 1000 DC PO Metoprolol Tartrate 25 MG BID 07/09 0530 AC 07/09 PO 0758 Olanzapine 2.5 MG Q8P PRN 07/05 2330 AC 07/08 PO 2323 Phosphate 250 MG PC AND AT BEDTIME 07/09 1300 AC 07/09 PO 1430 Tamsulosin HCl 0.4 MG DAILY 07/09 1653 AC PO CXR Findings: SERVICE DATE: 07/09/16-0426 EXAM TYPE: RAD - XRY-PORTABLE CHEST XRAY EXAMINATION: XR PORTABLE CHEST CLINICAL INFORMATION: Shortness of breath with new onset atrial fibrillation COMPARISON: Chest x-ray 07/08/2016 TECHNIQUE: Portable AP view of the chest was obtained. FINDINGS: Right PICC line tip terminates at the cavoatrial junction. Similar moderate interstitial pulmonary edema and small bilateral pleural effusions. Unchanged retrocardiac opacity. Cardiac silhouette is enlarged and stable. There are no acute osseous findings. IMPRESSION: Stable appearing interstitial pulmonary edema, small bilateral pleural effusions , and dense retrocardiac airspace opacity. US Findings: SERVICE DATE: 07/08/16-0767 EXAM TYPE: US - US-COMPLETE ABDOMEN EXAMINATION: US ABDOMEN COMPLETE CLINICAL INFORMATION: Hematuria. COMPARISON: CT of abdomen and pelvis from 11/27/2012. TECHNIQUE: Real-time imaging of the abdominal viscera. FINDINGS: PANCREAS: The pancreas is hyperechoic from fatty replacement. ABDOMINAL AORTA: The visualized proximal abdominal aorta is normal in caliber and measures 2.1 cm AP. INFERIOR VENA CAVA: Visualized portion in the upper abdomen is unremarkable. LIVER: The demonstrates normal size, contour and echotexture. No focal lesion or intrahepatic biliary duct dilatation. GALLBLADDER: Gallbladder is distended to approximately 5 cm transverse diameter. No gallbladder wall edema, cholelithiasis, pericholecystic fluid or Lisa's sign. COMMON BILE DUCT: Normal in caliber measuring 5-6 mm in diameter. RIGHT KIDNEY: The right kidney measures 10.3 cm in length and has normal cortical thickness and cortical echotexture. No evidence of focal proximal lesion, hydronephrosis or nephrolithiasis.. LEFT KIDNEY: Left kidney measures at least 8.8 cm in length; it is suboptimally visualized due to bowel gas. The kidney has normal cortical thickness and echotexture. No evidence of focal hepatic lesion, hydronephrosis or nephrolithiasis. SPLEEN: The spleen measures 9.3 cm in maximum dimension. FREE FLUID: None. IMPRESSION: 1. Gallbladder hydrops without evidence of sludge, cholelithiasis or cholecystitis. 2. Common bile duct is normal in size (0.5 cm diameter). 3. No evidence of nephrolithiasis or upper urinary tract obstruction. Impression/Plan Impression/Problem List Impression: Mr. Cross is an 86 year male with past medical history of hypertension, hyperlipidemia, CAD, TIA, recent hip fracture status post ORIF, BPH, CKD who presented from [facility] after sustaining to unwitnessed fall resulting in head strike right head laceration also with one-week history of congestion associated with cough and low-grade fever and change in mental status and lethargic found to have left basilar opacity on x-ray suspicious for pneumonia. PLAN Respiratory/ID 1. HCAP * Pt satting well on 2 L NC. * He repeat CXR showed Initially, his CXR raises concern for l. basilar opacity; initially failed swallow eval, concern for aspiration pna. Last night had Tmax and fever of 102. * Initially on Vanco and ceftaz to cover HCAP; then ceftaz alone. * He has grown 1/2 blood culture bottles of proteus. LRC showing diphtheroids. There is concern for Rhodococcus equi. Now on UNasyn 3g q6h - day 4 of ABx * Repeat cultures pending. WBC WNL. * Pulmonology consult appreciated - CXR this am showed dense retrocardiac airspace opacity. we will get a chest CT w contrast (as hes getting abdominopelvic CT as well) to further evaluate - multiple attempts were made to reach the patients family to consent for IV ABx and voicemail was left. We will continue trying. * Continue TRC nebs * And oxygen as needed keep saturations above 92%. * Strict aspiration precautions * Chlorhexidine oral swab twice a day 2. Hydrops Gallbladder * U/S identifieid hydrops gallbladder as dictated above. ELT and AST within normal limits and alkaline phosphatase 105, normal * I did speak to the surgical PA as well as the on-call surgeon, Dr. Shearer, there is no role for surgery at the moment as the patient does not have any RUQ pain, murphys sign was -ve, and the patients liver enzymes/alk phos are WNL. Also there was no sign of obstruction. * As the patient did spike a temp last night, we will go ahead with the plan to CT his abdomen/pelvis. As indicated above, multiple attempts were made to reach the patients family to consent for IV ABx and voicemail was left - Infectious process possibly GI related 3. 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 He had prolonged stay in June 2016 with Proteus that was generally sensitive to everything but Macrobid. At that time he had large leukocyte esterase and 5-15 white cells. However he has negative nitrite and denies any symptoms. Note that he has one blood culture growing Proteus that is similar in sensitivity to the one grown earlier this past year from urine. * Follow final urinary cultures * As he passed his swallow eval yesterday, we will resume his flomax 0.4mg daily CVS New onset Atrial fibrillation * patient developed new onset afib overnight * cardio consult placed and appreciated * we will rate control with metoprolol 25 mg twice a day - can be converted to IV if hes unable to tolerate PO * We'll also anticoagulate with IV heparin, to be titrated up to 2 times upper limit of PTT - if he remains in AF, a decision will need to be made regarding oil heaterman AC as he has had multiple falls CAD, HLD, HTN and TIA * now on metoprolol 25 BID * currently negative 1600cc - s/p 20mg of lasix * in light of his recent kidney injury, consider resuming spironolactone tomorrow * On IV heparin * Continue statin Musculoskeletal: * Patient has history of unwitnessed mechanical falls. He also has a recent history of ORIF. * Physical therapy evaluation * Status post ORIF * Continue DVT prophylaxis GI: * Patient passed swallow eval yesterday * on regular diet - pure and honey. * Phosphorus was 2.3, mildly hypophosphatemic * We will start 250mg after meals and nightly Neuro * Slowly improving, no longer requiring a sitter, still soft restrained. * If patient is significantly agitated, he usually gets olanzapine. Family has been counseled about risks and benefits of antipsychotic medication in elderly, but they prefer symptomatic management of his agitation. * Continue Zyprexa when necessary severe agitation * Daily EKG for QTc * Keep magnesium within normal limits Renal: * Patient has history of CKD. Cr has corrected to 1.1. * Avoid nephrotoxic agents * He was given 20mg of lasix this am for fluid overload * Recheck renal function in a.m. IV heparin now DNR/DNI Regular diet Problem List: 1. Altered mental status 2. Pneumonia 3. Delirium Pain Ratin Tomorrow's Labs & Rationales: cbc, icu bundle, EKG Plan DVT/Prophylaxis: pharmacological
[2016-07-09 16:00] VITALS: BP 90/60
[2016-07-09 20:56] LABS: PTT 73 SEC (25-37)
[2016-07-09 21:00] VITALS: BP 144/65
--- NOTE | 2016-07-09 21:16 | NUR ---
PT B/P AT . MD ALVAREZ MADE AWARE. FLUIDS ORDERED AND STARTED AT 60 ML/HR. WILL CONTINUE TO MONITOR.
[2016-07-09 21:42] VITALS: BP 147/63
--- NOTE | 2016-07-10 03:25 | NUR ---
FLUIDS D/C'D BY MD MURGUIA AT 0200. B/P 109/64. WILL CONTINUE TO MONITOR.
[2016-07-10 06:45] VITALS: BP 106/57
[2016-07-10 06:57] LABS: ABSOLUTE BASOPHIL COUNT 0 /CUMM (0.0-0.2); ABSOLUTE EOSINOPHIL COUNT 0.8 /CUMM (0.0-0.7); ABSOLUTE LYMPH COUNT 1.1 /CUMM (1.2-3.4); ABSOLUTE MONOCYTE COUNT 0.6 /CUMM (0.10-0.60); BASOPHIL % 0.3 % (0.0-2.0); EOSINOPHIL % 12.2 % (0-5); HEMATOCRIT 28.1 % (42-52); MEAN CORPUSCULAR HGB 33.3 PG (27.0-31.0); MEAN CORPUSCULAR VOLUME 97.9 FL (80.0-94.0); MEAN PLATELET VOLUME 8.1 FL (7.4-10.4); PLATELET COUNT 159 /CUMM (130-400); RBC DISTRIBUTION WIDTH 15.5 % (11.5-14.5); RED BLOOD CELL CT 2.87 /CUMM (4.70-6.10); WHITE BLOOD CELL COUNT 6.6 /CUMM (4.8-10.8)
[2016-07-10 07:02] LABS: PTT 59 SEC (25-37)
[2016-07-10 08:00] VITALS: BP 100/70
--- NOTE | 2016-07-10 08:57 | PN- Resident CRCU ---
Subjective HPI/CRCU Issues: Pt in ICU for: Sepsis with PNA vs UTI, new onset a.fib Pt had new onset a.fib started on metoprolol 25 bid. His HR remained in 90s- 100s. This AM I saw him and he was asleep. He was rousable but seemed reluctant to interact with me. Denied chest pain. Pt going for CAT scan of chest, abd, pelvis today. Obtained consent for procedure. Objective Vital Signs & I&O Last 8 Hrs of Vitals and I&O: Vital Signs Date Time Temp Pulse Resp B/P Pulse O2 O2 Flow FiO2 Ox Delivery Rate 07/10 1025 105 115/60 07/10 1025 105 115/60 07/10 0904 95 Room Air 07/10 0800 94 Room Air 07/10 0800 97.0 94 20 100/70 94 Room Air 07/10 0645 98.0 94 20 106/57 95 Room Air Exam General Appearance: well developed/nourished, lethargic Head: atraumatic, normal appearance Ears, Nose, Throat: normal pharynx Neck: supple Respiratory: decreased breath sounds Cardiovascular: irregularly irregular Gastrointestinal: normal bowel sounds, soft Extremities: normal inspection Nutrition Nutrition: P.O. diet Current Medications: Current Medications Sig/Chirag Start time Last Medication Dose Route Stop Time Status Admin Acetaminophen 1,000 MG .STK-MED ONE 07/09 1628 DC IV 07/09 1629 Acetaminophen 1,000 MG Q6-PRN PRN 07/06 2315 AC 07/09 IV 1635 Acetaminophen 650 MG Q6P PRN 07/05 2200 AC 07/06 PO 1905 Albuterol Sulfate 3 ML TID 07/06 1000 07/10 INH 0900 Ampicillin Sodium/ 3,000 MG Q6 07/08 1800 07/10 Sulbactam Sodium IV 0540 Sodium Chloride 100 ML Atorvastatin Calcium 40 MG 1700 07/06 1700 AC 07/09 PO 1806 Chlorhexidine 5 ML BID 07/08 1356 AC 07/10 Gluconate PO 1026 Cholecalciferol 1,000 IU DAILY 07/06 1000 AC 07/10 PO 1026 Cyanocobalamin 1,000 MCG DAILY 07/06 1000 AC 07/10 PO 1025 Dextrose/Sodium 1,000 ML .[id number] 07/09 2014 DC 07/09 Chloride IV 2035 Guaifenesin 10 ML .STK-MED ONE 07/10 0004 DC PO 07/10 0005 Guaifenesin 10 ML .STK-MED ONE 07/09 1555 DC PO 07/09 1556 Guaifenesin 10 ML Q6H 07/05 2315 AC 07/10 PO 0541 Heparin Sodium 2,200 UNIT ONCE ONE 07/10 0945 DC 07/10 (Porcine) IV 07/10 0946 0800 Heparin Sodium 25,000 UNIT Q24H 07/09 1030 AC 07/09 (Porcine) IV 1230 Sodium Chloride 500 ML Ipratropium [place] 2.5 ML TID 07/06 1000 AC 07/10 INH 0900 Metoprolol Tartrate 25 MG BID 07/09 0530 AC 07/10 PO 1025 Olanzapine 2.5 MG Q8P PRN 07/05 2330 AC 07/08 PO 2323 Phosphate 250 MG PC AND AT BEDTIME 07/09 1300 AC 07/10 PO 0900 Tamsulosin HCl 0.4 MG DAILY 07/09 1653 AC 07/10 PO 1025 Impression/Plan Impression/Problem List Impression: This is 86 year male with past medical history of hypertension, hyperlipidemia, CAD, TIA, recent hip fracture status post ORIF, BPH, CKD presented from [facility] after sustaining to unwitnessed fall resulting in head strike right head laceration also with one-week history of congestion associated with cough and low-grade fever and change in mental status and lethargic found to have left basilar opacity on x-ray suspicious for pneumonia. Patient spiked fever of 102.2 in ER suggestive of acute infection. He was then admitted to general medicine floor for further management. However at night his blood pressure continued to remain low, and after 3 L of resuscitation he continued to remain in the 90s over 40s range. Given concern for septic shock, patient was transferred to ICU for possible IJ and pressors. However,in ICU patient's vitals stabilized without requiring any pressors, his blood pressure remained in 110 to 130 range today with fluids. PLAN ID/ Respiratory: Pt satting well on 2 L NC. Initially, his CXR raises concern for l. basilar opacity; initially failed swallow eval, concern for aspiration pna. Afebrile. 1.)HCAP: Patient comes from and STR/LTAC. 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 pneumonia. He was initially on Vanco and ceftaz; then continued on ceftaz --> Unasyn. This is day 5 of abx; WBC at 6.6 today. Lungs still sound crackles and wheezes. LRC showing diphtheroids. There is concern for Rhodococcus equi. We will wait further lab confirmation and consider switching patient to vancomycin if necessary. His CXR shows dense retrocardiac opacity and ultrasound shows gallbladder hydrops. * Cont' Unasyn * Bcx x 1 with Pansensitive proteus. * Follow up cx negative * Negative flu, strep and legionella. * Pulmonology consult appreciated. * Continue TRC nebs * And oxygen as needed keep saturations above 92%. 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 He had prolonged stay in June 2016 with Proteus that was generally sensitive to everything but Macrobid. UA not overwhelmingly significant for UTI. Note that he has one blood culture now growing Proteus. Most likely source of this pathogen would be the system either urinary or biliary origin. * Follow final urinary cultures * Continue Flomax starting 07/09 * If abdominal ultrasound negative and patient continues to spike fevers we will do CAT scan: Of chest, abdomen, pelvis, and thigh. * Unasyn for antibiotic therapy 3.) Hydrops Gallbladder * U/S identifieid hydrops gallbladder as dictated above. AST/ALT WNL; Alp phos 105. * Surgery was consulted on 07/[address] Shearer, there is no role for surgery at the moment as the patient does not have any RUQ pain, murphys sign was -ve, and the patients liver enzymes/alk phos are WNL. Also there was no sign of obstruction. * As the patient did spike a tempthe previosu night we will go ahead with the plan to CT his abdomen/pelvis this AM. CVS: 1.) New onset Atrial fibrillation * patient developed new onset afib overnight * cardio consult placed and appreciated * On rate control with metoprolol 25 mg twice a day. HR 90s/100s * We'll also anticoagulate with IV heparin, to be titrated up to 2 times upper limit of PTT - if he remains in AF, a decision will need to be made regarding longterm AC as he has had multiple fallsHe has history of CAD., Hyperlipidemia , hypertension, TIA 2.) CAD, HLD, HTN and TIA * currently negative 1600cc - s/p 20mg of lasix * in light of his recent kidney injury, consider resuming spironolactone tomorrow * On IV heparin * Continue statin Musculoskeletal: Patient has history of unwitnessed mechanical falls. He also has a recent history of ORIF. * Physical therapy evaluation * Status post ORIF * Continue DVT prophylaxis GI: * Patient passes swallow eval on 07/08. We will advance his diet to pure and honey. We will resume his by mouth meds. Neuro: Patient has significant agitation and combativeness. He has frequent admissions for delirium and so far all workup has been negative. Patient is an bilateral soft restraints. If patient is significantly agitated, he usually gets olanzapine. Family has been counseled about risks and benefits of antipsychotic medication in elderly, but they prefer symptomatic management of his agitation. * Continue Zyprexa when necessary severe agitation * Daily EKG for QTc at 2 pm today * Keep magnesium within normal limits Renal: Patient has history of CK D. This a.m. his creatinine was at 1.1. He came in at 1.2. * Avoid nephrotoxic agent * Gentle IV hydration Hold spironolactone and Lasix * Recheck renal function in a.m. Subcutaneous Lovenox DNR/DNI npo Problem List: 1. Altered mental status 2. Atrial fibrillation 3. Closed right hip fracture 4. Delirium Pain Ratin Tomorrow's Labs & Rationales: icu cbc Plan DVT/Prophylaxis: pharmacological
--- NOTE | 2016-07-10 08:58 | PN- Infect Dx ---
Subjective Subjective: Afebrile without complaints. He developed atrial fibrillation early yesterday morning with hypotension noted yesterday afternoon. Objective Last 24 Hrs of Vital Signs/I&O Vital Signs Date Time Temp Pulse Resp B/P Pulse O2 O2 Flow FiO2 Ox Delivery Rate 07/10 0645 98.0 94 20 106/57 95 Room Air 07/10 0400 95 Room Air 07/10 0000 Room Air 07/09 2218 73 90/57 07/09 2000 94 Room Air 07/09 1926 99 Nasal 2.0L Cannula 07/09 1600 99 Nasal 2.0L Cannula 07/09 1600 97.7 110 16 90/60 99 Nasal 2.0L Cannula Intake & Output 07/10 1600 07/10 0800 07/10 0000 Intake Total 502.5 330 Output Total 640 640 Balance -137.5 -310 Intake, IV 382.5 250 Intake, Oral 120 80 Output, Urine 640 640 Physical Exam Other Physical Findings: He is lethargic but arousable and oriented to place, appearing in no acute distress Lungs scattered rhonchi bilaterally Heart irregular rhythm with no murmur Abdomen is soft, nontender with positive bowel sounds Extremities no cyanosis, clubbing or edema; PICC in place in the right upper extremity Granado catheter is in place Results Last 24 Hours of Lab Results: Laboratory Tests 07/10 07/09 0610 1902 Chemistry Sodium (137 - 145 mmol/L) 139 Potassium (3.5 - 5.1 mmol/L) 3.9 Chloride (98 - 107 mmol/L) 110 H Carbon Dioxide (22 - 30 mmol/L) 24 Anion Gap (5 - 16) 6 BUN (9 - 20 mg/dL) 20 Creatinine (0.7 - 1.2 mg/dL) 1.1 Estimated GFR (>60 ml/min) > 60 Glucose (65 - 99 mg/dL) 106 H Calcium (8.4 - 10.2 mg/dL) 8.4 Phosphorus (2.5 - 4.5 mg/dL) 2.7 Magnesium (1.6 - 2.3 mg/dL) 1.9 Total Bilirubin (0.2 - 1.3 mg/dL) 0.8 AST (17 - 59 U/L) 27 ALT (21 - 72 U/L) 40 Albumin (3.5 - 5.0 g/dL) 2.2 L Coagulation APTT (25 - 37 SEC) 59 H 73 H Hematology CBC w Diff NO MAN DIFF REQ WBC (4.8 - 10.8 /CUMM) 6.6 RBC (4.70 - 6.10 /CUMM) 2.87 L Hgb (14.0 - 18.0 G/DL) 9.6 L Hct (42 - 52 %) 28.1 L MCV (80.0 - 94.0 FL) 97.9 H MCH (27.0 - 31.0 PG) 33.3 H RDW (11.5 - 14.5 %) 15.5 H Plt Count (130 - 400 /CUMM) 159 MPV (7.4 - 10.4 FL) 8.1 Gran % (42.2 - 75.2 %) 61.0 Lymphocytes % (20.5 - 51.1 %) 17.0 L Monocytes % (1.7 - 9.3 %) 9.5 H Eosinophils % (0 - 5 %) 12.2 H Basophils % (0.0 - 2.0 %) 0.3 Absolute Granulocytes (1.4 - 6.5 /CUMM) 4.0 Absolute Lymphocytes (1.2 - 3.4 /CUMM) 1.1 L Absolute Monocytes (0.10 - 0.60 /CUMM) 0.6 Absolute Eosinophils (0.0 - 0.7 /CUMM) 0.8 Absolute Basophils (0.0 - 0.2 /CUMM) 0 PUBS MCHC (33.0 - 37.0 G/DL) 34.0 Last 24 Hours of Wil[place] Results: Blood cultures 2 July 09 negative Sputum culture July 07 positive for Rhodococcus equi Recent Imaging Studies: Chest x-ray July 09, personally reviewed, reveals interstitial pulmonary edema with small bilateral pleural effusions and dense retrocardiac density, unchanged from previous studies Abdominal ultrasound July 08 reveals gallbladder hydrops with no evidence of sludge, cholelithiasis or cholecystitis; normal common bile duct; no evidence of nephrolithiasis or upper urinary tract obstruction Assessment/Plan Impression: Clinically improved with temperatures and white blood cell count normal on Unasyn now Day 5 of treatment for Proteus sepsis, possibly of urologic origin, though his urine cultures sent 1 and 2 days prior to admission and 1 day after admission were negative, versus pneumonia, though his sputum culture is positive for Rhodococcus equi, which can be a pathogen in immunocompromised patients but would not explain his bacteremia, versus a biliary process, though he has no findings on exam or imaging to suggest this. Treatment of Rhodococcus equi is often with macrolides in combination with other antibiotics such as Vancomycin, but, as his respiratory status is stable, do not feel that this is necessary at this time. Suggestion: 1. Would pursue CT of the chest, abdomen and pelvis 2. Decrease Unasyn to 3 g IV every 8 hours
--- NOTE | 2016-07-10 12:30 | NUR ---
PT BROUGHT TO CT SCAN. PT IS DROWSY,AROUSABLE. CONFUSED. VSS.
--- NOTE | 2016-07-10 13:54 | PN- Att Addend ---
Attending Addendum Attending Brief Note Patient somewhat oriented answering simple questions General Appearance: Awake Skin: Grossly normal HEENT: PEERLA Neck: Supple, No JVD Cardiovascular: Regular Rate, Normal S1, Normal S2, No Murmurs Lungs: Clear to Auscultation, Normal Air Movement Abdomen: Normal Bowel Sounds, Soft, No Tenderness Extremities: No Clubbing, No Cyanosis, No Edema Vascular: Normal Pulses Assessment Proteus in blood one of 2 bottles. Unclear source. However his vitals are stable and now afebrile. Ultrasound suggested hydrops without any obstruction or cholecystitis. Surgery was consulted who thinks this is the likely source of Proteus sepsis. Patient appears to be responding to Unasyn and we will continue current antibiotics and also obtain CAT scan chest, abdomen and pelvis with contrast. Unfortunately he has new onset atrial fibrillation in the setting of sepsis. Currently 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 with metoprolol and on heparin drip. Plan Continue Unasyn CAT scan chest, abdomen and pelvis with IV contrast Continue to monitor vitals and urine output Continue supportive care Follow consults recommendations Continue metoprolol and heparin drip DNI/DNR Current Medications Sig/Chirag Start time Last Medication Dose Route Stop Time Status Admin Acetaminophen 1,000 MG .STK-MED ONE 07/09 1628 DC IV 07/09 1629 Acetaminophen 1,000 MG Q6-PRN PRN 07/06 2315 AC 07/09 IV 1635 Acetaminophen 650 MG Q6P PRN 07/05 2200 AC 07/06 PO 1905 Albuterol Sulfate 3 ML TID 07/06 1000 07/10 INH 1341 Ampicillin Sodium/ 3,000 MG Q8 07/10 1400 07/10 Sulbactam Sodium IV 1321 Sodium Chloride 100 ML Ampicillin Sodium/ 3,000 MG Q6 07/08 1800 DC 07/10 Sulbactam Sodium IV 0540 Sodium Chloride 100 ML Atorvastatin Calcium 40 MG 1700 07/06 1700 AC 07/09 PO 1806 Chlorhexidine 5 ML BID 07/08 1356 07/10 Gluconate PO 1026 Cholecalciferol 1,000 IU DAILY 07/06 1000 AC 07/10 PO 1026 Cyanocobalamin 1,000 MCG DAILY 07/06 1000 AC 07/10 PO 1025 Dextrose/Sodium 1,000 ML .[id number] 07/09 2014 DC 07/09 Chloride IV 203 Guaifenesin 10 ML .STK-MED ONE 07/10 0536 DC PO 07/10 0537 Guaifenesin 10 ML .STK-MED ONE 07/10 0004 DC PO 07/10 0005 Guaifenesin 10 ML .STK-MED ONE 07/09 1555 DC PO 07/09 1556 Guaifenesin 10 ML Q6H 07/05 2315 AC 07/10 PO 1336 Heparin Sodium 2,200 UNIT ONCE ONE 07/10 0945 DC 07/10 (Porcine) IV 07/10 0946 0800 Heparin Sodium 25,000 UNIT Q24H 07/09 1030 AC 07/10 (Porcine) IV 1030 Sodium Chloride 500 ML Ipratropium [place] 2.5 ML TID 07/06 1000 AC 07/10 INH 1341 Metoprolol Tartrate 25 MG BID 07/09 0530 AC 07/10 PO 1025 Olanzapine 2.5 MG Q8P PRN 07/05 2330 AC 07/08 PO 2323 Phosphate 250 MG PC AND AT BEDTIME 07/09 1300 AC 07/10 PO 1336 Tamsulosin HCl 0.4 MG DAILY 07/09 1653 AC 07/10 PO 1025 Laboratory Tests 07/10 07/09 0610 1902 Chemistry Sodium (137 - 145 mmol/L) 139 Potassium (3.5 - 5.1 mmol/L) 3.9 Chloride (98 - 107 mmol/L) 110 H Carbon Dioxide (22 - 30 mmol/L) 24 Anion Gap (5 - 16) 6 BUN (9 - 20 mg/dL) 20 Creatinine (0.7 - 1.2 mg/dL) 1.1 Estimated GFR (>60 ml/min) > 60 Glucose (65 - 99 mg/dL) 106 H Calcium (8.4 - 10.2 mg/dL) 8.4 Phosphorus (2.5 - 4.5 mg/dL) 2.7 Magnesium (1.6 - 2.3 mg/dL) 1.9 Total Bilirubin (0.2 - 1.3 mg/dL) 0.8 AST (17 - 59 U/L) 27 ALT (21 - 72 U/L) 40 Albumin (3.5 - 5.0 g/dL) 2.2 L Coagulation APTT (25 - 37 SEC) 59 H 73 H Hematology CBC w Diff NO MAN DIFF REQ WBC (4.8 - 10.8 /CUMM) 6.6 RBC (4.70 - 6.10 /CUMM) 2.87 L Hgb (14.0 - 18.0 G/DL) 9.6 L Hct (42 - 52 %) 28.1 L MCV (80.0 - 94.0 FL) 97.9 H MCH (27.0 - 31.0 PG) 33.3 H RDW (11.5 - 14.5 %) 15.5 H Plt Count (130 - 400 /CUMM) 159 MPV (7.4 - 10.4 FL) 8.1 Gran % (42.2 - 75.2 %) 61.0 Lymphocytes % (20.5 - 51.1 %) 17.0 L Monocytes % (1.7 - 9.3 %) 9.5 H Eosinophils % (0 - 5 %) 12.2 H Basophils % (0.0 - 2.0 %) 0.3 Absolute Granulocytes (1.4 - 6.5 /CUMM) 4.0 Absolute Lymphocytes (1.2 - 3.4 /CUMM) 1.1 L Absolute Monocytes (0.10 - 0.60 /CUMM) 0.6 Absolute Eosinophils (0.0 - 0.7 /CUMM) 0.8 Absolute Basophils (0.0 - 0.2 /CUMM) 0 PUBS MCHC (33.0 - 37.0 G/DL) 34.0 Vital Signs Date Time Temp Pulse Resp B/P Pulse O2 O2 Flow FiO2 Ox Delivery Rate 07/10 1025 105 115/60 07/10 1025 105 115/60 07/10 0904 95 Room Air 07/10 0800 94 Room Air 07/10 0800 97.0 94 20 100/70 94 Room Air 07/10 0645 98.0 94 20 106/57 95 Room Air 07/10 0400 95 Room Air 07/10 0000 Room Air 07/09 2218 73 90/57 07/09 2000 94 Room Air 07/09 1926 99 Nasal 2.0L Cannula 07/09 1600 99 Nasal 2.0L Cannula 07/09 1600 97.7 110 16 90/60 99 Nasal 2.0L Cannula
--- NOTE | 2016-07-10 14:33 | PN- Cardiology ---
Subjective Subjective: Patient still lethargic but slightly more alert and answering some questions today. Objective Vital Signs and I&Os Vital Signs Date Time Temp Pulse Resp B/P Pulse O2 O2 Flow FiO2 Ox Delivery Rate 07/10 1025 105 115/60 07/10 1025 105 115/60 07/10 0904 95 Room Air 07/10 0800 94 Room Air 07/10 0800 97.0 94 20 100/70 94 Room Air 07/10 0645 98.0 94 20 106/57 95 Room Air 07/10 0400 95 Room Air 07/10 0000 Room Air 07/09 2218 73 90/57 07/09 2000 94 Room Air 07/09 1926 99 Nasal 2.0L Cannula 07/09 1600 99 Nasal 2.0L Cannula 07/09 1600 97.7 110 16 90/60 99 Nasal 2.0L Cannula Intake & Output 07/10 1600 07/10 0800 07/10 0000 07/09 1600 07/09 0800 07/09 0000 Intake Total 502.5 330 390 450 240 Output Total 492 340 5802 500 260 Balance -137.5 -310 -1560 -50 -20 Intake, IV 382.5 250 150 450 240 Intake, Oral 120 80 240 Output, Urine 548 774 1119 500 260 Physical Exam: General: Lethargic Eyes: No obvious scleral icterus. HEENT: No jugular venous distention or abnormal jugular venous pulsations. Cardiovascular: Normal intensity S1/S2. Irregular. Respiratory: Mildly decreased air entry bilaterally Abdomen: no guarding or rebound tenderness. Musculoskeletal: No clubbing or cyanosis noted, no edema Current Medications: Current Medications Sig/Chirag Start time Last Medication Dose Route Stop Time Status Admin Acetaminophen 1,000 MG .ST-MED ONE 07/09 1628 DC IV 07/09 1629 Acetaminophen 1,000 MG Q6-PRN PRN 07/06 2315 AC 07/09 IV 1635 Acetaminophen 650 MG Q6P PRN 07/05 2200 AC 07/06 PO 1905 Albuterol Sulfate 3 ML TID 07/06 1000 07/10 INH 1341 Ampicillin Sodium/ 3,000 MG Q8 07/10 1400 AC 07/10 Sulbactam Sodium IV 1321 Sodium Chloride 100 ML Ampicillin Sodium/ 3,000 MG Q6 07/08 1800 DC 07/10 Sulbactam Sodium IV 0540 Sodium Chloride 100 ML Atorvastatin Calcium 40 MG 1700 07/06 1700 AC 07/09 PO 1806 Chlorhexidine 5 ML BID 07/08 1356 AC 07/10 Gluconate PO 1026 Cholecalciferol 1,000 IU DAILY 07/06 1000 AC 07/10 PO 1026 Cyanocobalamin 1,000 MCG DAILY 07/06 1000 AC 07/10 PO 1025 Dextrose/Sodium 1,000 ML .[id number] 07/09 2014 DC 07/09 Chloride IV 203 Guaifenesin 10 ML .STK-MED ONE 07/10 0536 DC PO 07/10 0537 Guaifenesin 10 ML .STK-MED ONE 07/10 0004 DC PO 07/10 0005 Guaifenesin 10 ML .STK-MED ONE 07/09 1555 DC PO 07/09 1556 Guaifenesin 10 ML Q6H 07/05 2315 AC 07/10 PO 1336 Heparin Sodium 2,200 UNIT ONCE ONE 07/10 0945 DC 07/10 (Porcine) IV 07/10 0946 0800 Heparin Sodium 25,000 UNIT Q24H 07/09 1030 AC 07/10 (Porcine) IV 1030 Sodium Chloride 500 ML Ipratropium [place] 2.5 ML TID 07/06 1000 AC 07/10 INH 1341 Metoprolol Tartrate 25 MG BID 07/09 0530 AC 07/10 PO 1025 Olanzapine 2.5 MG Q8P PRN 07/05 2330 AC 07/08 PO 2323 Phosphate 250 MG PC AND AT BEDTIME 07/09 1300 AC 07/10 PO 1336 Tamsulosin HCl 0.4 MG DAILY 07/09 1653 07/10 PO 1025 Results Last 48 Hrs of Labs/Mics: Laboratory Tests 07/10/16 0610: Anion Gap 6, Estimated GFR > 60, Glucose 106 H, Calcium 8.4, Phosphorus 2.7, Magnesium 1.9, Total Bilirubin 0.8, AST 27, ALT 40, Albumin 2.2 L, APTT 59 H, CBC w Diff NO MAN DIFF REQ, RBC 2.87 L, MCV 97.9 H, MCH 33.3 H, RDW 15.5 H, MPV 8.1, Gran % 61.0, Lymphocytes % 17.0 L, Monocytes % 9.5 H, Eosinophils % 12.2 H, Basophils % 0.3, Absolute Granulocytes 4.0, Absolute Lymphocytes 1.1 L , Absolute Monocytes 0.6, Absolute Eosinophils 0.8, Absolute Basophils 0, PUBS MCHC 34.0 07/09/16 1902: APTT 73 H 07/09/16439: Troponin I 0.07 07/09/16439: Anion Gap 7, Estimated GFR > 60, Glucose 114 H, Calcium 8.6, Phosphorus 2.3 L, Magnesium 2.0, Total Bilirubin 0.9, AST 32, ALT 45, Alkaline Phosphatase 105, Albumin 2.5 L, CBC w Diff NO MAN DIFF REQ, RBC 3.01 L, MCV 99.2 H, MCH 33.2 H, RDW 15.2 H, MPV 8.0, Gran % 70.5, Lymphocytes % 13.3 L, Monocytes % 8.9, Eosinophils % 7.3 H, Basophils % 0 L, Absolute Granulocytes 4.9, Absolute Lymphocytes 0.9 L, Absolute Monocytes 0.6, Absolute Eosinophils 0.5, Absolute Basophils 0, PUBS MCHC 33.5 Recent Imaging Studies: Telemetry tracings were personally reviewed and show atrial fibrillation with grossly controlled ventricular response rate Assessment/Plan Assessment/Plan 1. AMS with sepsis 2. New onset atrial fibrillation 3. 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 HTN/HLD 5. s/p recent mechanical fall with hip fx and ORIF, recurrent falls 6. CKD 7. Bifascicular block, previously noted The patient's new onset atrial fibrillation may have been precipitated by his sepsis. Given his recurrent delirium with recurrent falls he may not be a good candidate for long-term anticoagulation but for the time being we will continue with intravenous heparin to prevent the development of intracardiac thrombus while in atrial fibrillation. Continue on the oral metoprolol for rate control. He does not appear to be grossly volume overloaded. Echocardiogram is pending Can hold the patient's outpatient antiplatelet regimen while he is on IV heparin. CT scan is pending. Remains on IV antibiotics. Brandon Ruiz MD [facility] Continue telemetry? Yes
[2016-07-10 15:09] LABS: PTT 68 SEC (25-37)
[2016-07-10 16:00] VITALS: BP 90/67
--- NOTE | 2016-07-10 17:15 | CT SCAN REPORT ---
EXAMINATION: CT CHEST, ABDOMEN AND PELVIS WITH CONTRAST CLINICAL INFORMATION: Spiking fevers. Evaluate for any acute intra-abdominal source of infection. Questionable retrocardiac opacity. Evaluate for pneumonia. COMPARISON: CT chest without contrast 05/30/2016. CT abdomen and pelvis with contrast 11/01/2008. TECHNIQUE: Multidetector volumetric CT imaging of the chest, abdomen and pelvis was performed following the administration of 95 mL of Optiray 320 intravenous contrast without immediate adverse reactions. Additional 2-D coronal and sagittal reformatted images and axial 3-D maximum intensity projection MIP images of the chest were generated on the acquisition workstation. DLP: 1026 mGy-cm. FINDINGS: CHEST: THYROID: Unremarkable. LUNGS/AIRWAYS: Evaluation of the lung parenchyma demonstrates pulmonary hypoinflation. Of note, there are patchy groundglass opacities along the periphery of the right upper and right middle lobes. This finding is entirely nonspecific but could reflect a developing infectious or inflammatory process. There is minimal bibasilar dependent atelectasis secondary to small bilateral pleural effusions. Superimposed consolidation secondary to infection cannot be excluded in the appropriate clinical setting. The central airways are patent, without endobronchial obstructing lesions. HEART/VESSELS: Normal heart size, without significant pericardial effusion. Scattered atherosclerosis of the thoracic aorta. Scattered coronary artery calcifications. Normal caliber of the main pulmonary artery. No large central pulmonary emboli. 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 MEDIASTINUM/LYMPHATICS: No significant mediastinal, hilar or axillary adenopathy. PLEURA: Small bilateral pleural effusions. CHEST WALL: Unremarkable. ABDOMEN AND PELVIS: LIVER, GALLBLADDER, AND BILIARY TREE: The liver is normal in size, shape, and attenuation. No focal hepatic lesion or biliary ductal dilatation is present. The gallbladder is physiologically distended but otherwise unremarkable without gallstones, gallbladder wall thickening or pericholecystic inflammatory changes. PANCREAS: Near-complete fatty replacement of the pancreas. SPLEEN: Unremarkable. ADRENAL GLANDS: Unremarkable. KIDNEYS AND URETERS: Bilateral renal atrophy and renal cortical thinning. No enhancing renal parenchymal lesions. No renal or ureteral stones and no hydroureteronephrosis of either kidney. BLADDER: Decompressed by an indwelling Granado catheter. Air within the bladder lumen is likely iatrogenic. GASTROINTESTINAL TRACT: Evaluation of the gastrointestinal system is notable for a moderate amount of retained stool throughout the colon, indicative of constipation. Feculent material is also identified within loops of small bowel. This finding is nonspecific but can be seen in the setting of delayed intestinal transit. Abdominal and pelvic bowel loops are normal in caliber, without findings indicative of small bowel obstruction. A normal-appearing appendix is present within the right hemiabdomen. There are no organizing intra-abdominal or pelvic fluid collections and there is no free intraperitoneal air. ABDOMINAL WALL: Small fat-containing umbilical hernia. LYMPH NODES: No significant abdominal or pelvic adenopathy. VASCULAR: Scattered atherosclerosis of the abdominal aorta and its branching vessels. Aneurysmal dilatation of the infrarenal abdominal aorta which is visualized measuring approximately 4.0 x 4.8 cm in AP and transverse dimensions respectively (series 2, image 72). There is scattered noncalcified plaque within this region. An aortobiiliac stent graft is in place. The graft is patent and opacified by intravenous contrast. PELVIC VISCERA: Unremarkable. OSSEOUS STRUCTURES: Mechanical hardware within the right hip and proximal right femur related to recent orthopedic surgery. No visible enhancing fluid collections surrounding the right hip. There is mild asymmetric hypertrophy of the right hip musculature, likely wire rope sales representative of minimal intramuscular hematoma. The visualized bones are demineralized. There are no visible destructive osseous lesions. There is moderate multilevel degenerative changes of the lower lumbosacral spine. There is a mildly comminuted fracture involving the greater trochanter of the right hip. IMPRESSION: 1. Small bilateral pleural effusions with overlying minimal dependent compressive atelectasis. Patchy groundglass opacities along the periphery of the right upper and right middle lobes. This could reflect a mild acute or developing infectious or inflammatory process. 2. No acute findings within the abdomen or pelvis. No organizing intra-abdominal or pelvic fluid collections. The gallbladder is physiologically distended but otherwise unremarkable. There are no visible radiopaque gallstones. 3. A moderate amount of retained stool throughout the colon, indicative of constipation. Feculent material is also identified within loops of small bowel, which is indicative of delayed intestinal transit. 4. Mechanical hardware within the right hip and proximal right femur, related to recent orthopedic surgery. Mild asymmetric hypertrophy of the musculature surrounding the right hip, most likely wire rope sales representative of minimal intramuscular hematoma. No visible organizing fluid collections to suggest abscess. No immediate mechanical hardware complications.
--- NOTE | 2016-07-10 21:31 | ECHOCARDIOGRAM REPORT ---
MATTI HACKETT Age: 86 : 1930 Gender: M Exam Date: 07/10/2016 10:50 Exam Location: [facility] Ht (in): 67 Wt (lb): 160 BSA: 1.86 BP: 106 / 57 Ordering Physician: JOSHUA ALVAREZ MD Referring Physician: Nico Ruiz M.D. Technologist: Hui Saha RDCS Room Number: 109 Indications: AFIB/FLUTTER Rhythm: Atrial fibrillation Technical Quality: Fair FINDINGS Left Ventricle Left ventricular cavity size normal. Normal left ventricular wall thickness. Moderate anteroseptal hypokinesis. Left ventricular ejection fraction is estimated at 40 %. Right Ventricle Normal right ventricular size and function. Right Atrium Normal right atrial size. Left Atrium Mild left atrial dilatation. Mitral Valve No mitral stenosis. Mild mitral annular calcification. Mild mitral regurgitation. Aortic Valve Aortic sclerosis. No aortic stenosis. Tricuspid Valve Structurally normal tricuspid valve. [id number] tricuspid regurgitation. Unable to estimate the right ventricular systolic pressure but no findings to suggest severe pulmonary hypertension. Pulmonic Valve Pulmonic valve not well visualized, grossly normal. Pericardium No pericardial effusion. Possible left pleural effusion. Great Vessels Normal size aortic root. CONCLUSIONS Left ventricular cavity size normal. Normal left ventricular wall thickness. Moderate anteroseptal hypokinesis. Left ventricular ejection fraction is estimated at 40 %. Normal right ventricular size and function. Mild left atrial dilatation. [id number] tricuspid regurgitation. Unable to estimate the right ventricular systolic pressure but no findings to suggest severe pulmonary hypertension. Possible left pleural effusion. Nico Ruiz M.D. (Electronically Signed) Final Date: 10 July 2016 21:31 MEASUREMENTS (Male / Female) Normal Values 2D ECHO LV Diastolic Diameter PLAX 4.8 cm 4.2 - 5.9 / 3.9 - 5.3 cm LV Systolic Diameter PLAX 4.2 cm 2.1 - 4.0 cm LV Fractional Shortening PLAX 12.5 % 25 - 46 % LV Ejection Fraction 2D Teich 26.9 % IVS Diastolic Thickness 1.0 cm LVPW Diastolic Thickness 0.7 cm LV Relative Wall Thickness 0.4 RV Internal Dim ED PLAX 2.7 cm 1.9 - 3.8 cm LVOT Diameter 2.3 cm Aortic Root Diameter 3.8 cm LA Systolic Diameter LX 4.1 cm 3.0 - 4.0 / 2.7 - 3.8 cm LA Volume 53.0 cm 18 - 58 / 22 - 52 cm Ascending Aorta Diameter 3.4 cm DOPPLER AV Peak Velocity 168.0 cm/s AV Peak Gradient 11.3 mmHg AV Mean Velocity 114.0 cm/s AV Mean Gradient 6.0 mmHg AV Velocity Time Integral 31.3 cm LVOT Peak Velocity 135.0 cm/s LVOT Peak Gradient 7.3 mmHg LVOT Mean Velocity 94.5 cm/s LVOT Mean Gradient 4.0 mmHg LVOT Velocity Time Integral 23.2 cm LVOT Stroke Volume 96.4 cm AV Area Cont Eq vti 3.1 cm AV Area Cont Eq pk 3.3 cm MV Peak Velocity 129.0 cm/s MV Peak Gradient 6.7 mmHg MV Mean Velocity 67.3 cm/s MV Mean Gradient 2.0 mmHg Mitral E Point Velocity 109.0 cm/s MV PHT Velocity 133.0 cm/s MV Deceleration [place] 418.0 cm/s MV Pressure Half Time 95.5 ms MV Area PHT 2.3 cm MV Deceleration Time 195.0 ms TR Peak Velocity 258.0 cm/s TR Peak Gradient 26.6 mmHg Right Atrial Pressure 10.0 mmHg Pulmonary Artery Systolic Pressu 36.6 mmHg Right Ventricular Systolic Press 36.6 mmHg PV Peak Velocity 106.0 cm/s PV Peak Gradient 4.5 mmHg PV Mean Velocity 71.9 cm/s PV Mean Gradient 2.0 mmHg PV Velocity Time Integral 18.4 cm LV E' Lateral Velocity 11.5 cm/s Mitral E to LV E' Lateral Ratio 9.5 LV E' Septal Velocity 7.2 cm/s Mitral E to LV E' Septal Ratio 15.1
[2016-07-11 03:02] LABS: PTT 66 SEC (25-37)
[2016-07-11 05:30] LABS: ABSOLUTE BASOPHIL COUNT 0 /CUMM (0.0-0.2); ABSOLUTE EOSINOPHIL COUNT 0.7 /CUMM (0.0-0.7); ABSOLUTE GRANULOCYTE CT 3.7 /CUMM (1.4-6.5); ABSOLUTE LYMPH COUNT 1.4 /CUMM (1.2-3.4); ABSOLUTE MONOCYTE COUNT 0.5 /CUMM (0.10-0.60); BASOPHIL % 0.3 % (0.0-2.0); EOSINOPHIL % 10.7 % (0-5); GRANULOCYTE % 59.6 % (42.2-75.2); MEAN CORPUSCULAR HGB 32.7 PG (27.0-31.0); MEAN CORPUSCULAR HGB CONC 33.5 G/DL (33.0-37.0); MEAN CORPUSCULAR VOLUME 97.8 FL (80.0-94.0); MEAN PLATELET VOLUME 8.5 FL (7.4-10.4); PLATELET COUNT 180 /CUMM (130-400); RED BLOOD CELL CT 2.86 /CUMM (4.70-6.10); WHITE BLOOD CELL COUNT 6.3 /CUMM (4.8-10.8)
[2016-07-11 06:54] VITALS: BP 114/70
[2016-07-11 08:00] VITALS: BP 122/70
--- NOTE | 2016-07-11 09:24 | PN- Cardiology ---
Subjective Subjective: The patient is awake, alert Telemetry demonstrates atrial fibrillation with suboptimal heart rate response The patient denies symptoms of chest pains nor significant dyspnea or palpitations The events of the last 24 hours as well as telemetry were reviewed. Review of Systems: The review of systems is negative for chest pains, palpitations nor lightheadedness. The remainder of the 14 point review of systems is noncontributory with the exception of above. Objective Vital Signs and I&Os Vital Signs Date Time Temp Pulse Resp B/P Pulse O2 O2 Flow FiO2 Ox Delivery Rate 07/11 0845 97 Room Air 07/11 08 99.1 104 16 122/70 96 Room Air Room Air 07/11 0654 98.4 96 18 114/70 97 Room Air 07/11 0400 Room Air 07/11 0000 Room Air 07/10 2114 106 92/72 07/10 2000 Room Air 07/10 1929 95 Room Air Room Air 07/10 1600 99.0 109 15 90/67 97 Room Air 07/10 1200 95 Room Air 07/10 1025 105 115/60 07/10 1025 105 115/60 Intake & Output 07/11 1600 07/11 0800 07/11 0000 07/10 1600 07/10 0800 07/10 0000 Intake Total 294 500 264 502.5 330 Output Total 350 100 350 640 640 Balance -56 400 -86 -137.5 -310 Intake, IV 294 400 164 382.5 250 Intake, Oral 100 100 120 80 Number 0 Bowel Movements Output, Urine 350 100 350 640 640 Physical Exam: General: Nontoxic, no apparent distress. HEENT: Sclera and conjunctiva within normal limits, without xanthelasmas. Neck: Carotids 2+ without bruits. Respiratory: Scattered rhonchi, air movement is decreased at bases, without accessory respiratory muscle use. Heart: Irregularly irregular rate and rhythm, 2/6 systolic ejection murmur at left sternal border, without JVD. Abdomen: Soft, nontender, no masses, normoactive bowel sounds. Extremities: Without clubbing, cyanosis, without edema. Neuro: Nonfocal exam, strength, 5 out of 5 Skin: Within normal limits without lesions. Psych: Mood and affect: Normal Current Medications: Current Medications Sig/Chirag Start time Last Medication Dose Route Stop Time Status Admin Acetaminophen 1,000 MG .STK-MED ONE 07/10 2104 DC IV 01/29 2106 Acetaminophen 650 MG .STK-MED ONE 07/10 1722 DC PO 07/10 1723 Acetaminophen 1,000 MG Q6-PRN PRN 07/06 2315 AC 07/11 IV 0847 Acetaminophen 650 MG Q6P PRN 07/05 2200 AC 07/06 PO 1905 Albuterol Sulfate 3 ML TID 07/06 1000 AC 07/11 INH 0824 Ampicillin Sodium/ 3,000 MG Q8 07/10 1400 AC 07/11 Sulbactam Sodium IV 0511 Sodium Chloride 100 ML Ampicillin Sodium/ 3,000 MG Q6 07/08 1800 DC 07/10 Sulbactam Sodium IV 0540 Sodium Chloride 100 ML Atorvastatin Calcium 40 MG 1700 07/06 1700 AC 07/10 PO 1748 Chlorhexidine 5 ML BID 07/08 1356 AC 07/10 Gluconate PO 2116 Cholecalciferol 1,000 IU DAILY 07/06 1000 AC 07/10 PO 1026 Cyanocobalamin 1,000 MCG DAILY 07/06 1000 AC 07/10 PO 1025 Guaifenesin 10 ML .STK-MED ONE 07/10 2233 DC PO 07/10 2234 Guaifenesin 10 ML .STK-MED ONE 07/10 1723 DC PO 07/10 1724 Guaifenesin 10 ML .STK-MED ONE 07/10 1320 DC PO 07/10 1321 Guaifenesin 10 ML Q6H 07/05 2315 AC 07/11 PO 0515 Heparin Sodium 2,200 UNIT ONCE ONE 07/10 0945 DC 07/10 (Porcine) IV 07/10 0946 0800 Heparin Sodium 25,000 UNIT Q24H 07/09 1030 AC 07/10 (Porcine) IV 1801 Sodium Chloride 500 ML Ipratropium [place] 2.5 ML TID 07/06 1000 AC 07/11 INH 0824 Magnesium Oxide 400 MG ONE ONE 07/11 0800 DC 07/11 PO 07/11 0801 0855 Metoprolol Tartrate 25 MG BID 07/09 0530 AC 07/10 PO 1025 Olanzapine 2.5 MG Q8P PRN 07/05 2330 AC 07/08 PO 2323 Phosphate 250 MG PC AND AT BEDTIME 07/09 1300 AC 07/11 PO 0855 Tamsulosin HCl 0.4 MG DAILY 07/09 1653 AC 01/29 PO 1025 Results Last 48 Hrs of Labs/Mics: Laboratory Tests 07/11/16 0440: Anion Gap 7, Estimated GFR > 60, Glucose 104 H, Calcium 8.0 L, Phosphorus 3.5, Magnesium 1.8, Total Bilirubin 0.8, AST 28, ALT 46, Albumin 2.2 L, CBC w Diff NO MAN DIFF REQ, RBC 2.86 L, MCV 97.8 H, MCH 32.7 H, RDW 15.0 H, MPV 8.5, Gran % 59.6, Lymphocytes % 21.8, Monocytes % 7.6, Eosinophils % 10.7 H, Basophils % 0.3, Absolute Granulocytes 3.7, Absolute Lymphocytes 1.4, Absolute Monocytes 0.5, Absolute Eosinophils 0.7, Absolute Basophils 0, PUBS MCHC 33.5 07/11/16 0243: APTT 66 H 07/10/16 1600: Troponin I Cancelled 07/10/16 1422: APTT 68 H 07/10/16 0610: Anion Gap 6, Estimated GFR > 60, Glucose 106 H, Calcium 8.4, Phosphorus 2.7, Magnesium 1.9, Total Bilirubin 0.8, AST 27, ALT 40, Troponin I 0.04, Albumin 2.2 L, APTT 59 H, CBC w Diff NO MAN DIFF REQ, RBC 2.87 L, MCV 97.9 H, MCH 33.3 H, RDW 15.5 H, MPV 8.1, Gran % 61.0, Lymphocytes % 17.0 L, Monocytes % 9.5 H, Eosinophils % 12.2 H, Basophils % 0.3, Absolute Granulocytes 4.0, Absolute Lymphocytes 1.1 L, Absolute Monocytes 0.6, Absolute Eosinophils 0.8, Absolute Basophils 0, PUBS MCHC 34.0 07/09/16 1902: APTT 73 H Assessment/Plan Assessment/Plan 1. AMS with sepsis 2. New onset atrial fibrillation 3. Reported hx of CAD/IN/PVD/AAA repair/?TIA hx 4. HTN/HLD 5. s/p recent mechanical fall with hip fx and ORIF, recurrent falls 6. CKD 7. Bifascicular block, previously noted We will continue treatment for atrial fibrillation with heart rate control. Metoprolol may be increased as tolerated by blood pressure. Given the patient's history of falls, he is a suboptimal candidate for long-term anticoagulation; however, IV heparin will be continued for now. An echocardiogram will be obtained. Continue telemetry? Yes
--- NOTE | 2016-07-11 10:33 | PN- Infect Dx ---
Subjective Subjective: Afebrile. He complains of pain in both legs. Objective Last 24 Hrs of Vital Signs/I&O Vital Signs Date Time Temp Pulse Resp B/P Pulse O2 O2 Flow FiO2 Ox Delivery Rate 07/11 0936 112 10707/11 0936 112 10707/11 0900 95 Room Air Room Air 07/11 0845 97 Room Air 07/11 0800 99.1 104 16 122/70 96 Room Air Room Air 07/11 0654 98.4 96 18 114/70 97 Room Air 07/11 0400 Room Air 07/11 0000 Room Air 07/10 2114 106 92/72 07/10 2000 Room Air 07/10 1929 95 Room Air Room Air 07/10 1600 99.0 109 15 90/67 97 Room Air 07/10 1200 95 Room Air Intake & Output 07/11 1600 07/11 0800 07/11 0000 Intake Total 294 500 Output Total 350 100 Balance -56 400 Intake, IV 294 400 Intake, Oral 100 Output, Urine 350 100 Physical Exam Other Physical Findings: He appears more awake and alert, still confused, but in no acute distress Lungs are clear Heart regular rhythm with no murmur Abdomen is soft, nontender with positive bowel sounds Extremities right hip incision clean, with no erythema or drainage; no cyanosis, clubbing or edema Granado catheter remains in place Results Last 24 Hours of Lab Results: Laboratory Tests 07/11 07/11 07/10 0440 0243 1600 Chemistry Sodium (137 - 145 mmol/L) 141 Potassium (3.5 - 5.1 mmol/L) 4.4 Chloride (98 - 107 mmol/L) 110 H Carbon Dioxide (22 - 30 mmol/L) 24 Anion Gap (5 - 16) 7 BUN (9 - 20 mg/dL) 19 Creatinine (0.7 - 1.2 mg/dL) 1.1 Estimated GFR (>60 ml/min) > 60 Glucose (65 - 99 mg/dL) 104 H Calcium (8.4 - 10.2 mg/dL) 8.0 L Phosphorus (2.5 - 4.5 mg/dL) 3.5 Magnesium (1.6 - 2.3 mg/dL) 1.8 Total Bilirubin (0.2 - 1.3 mg/dL) 0.8 AST (17 - 59 U/L) 28 ALT (21 - 72 U/L) 46 Troponin I Cancelled Albumin (3.5 - 5.0 g/dL) 2.2 L Coagulation APTT (25 - 37 SEC) 66 H Hematology CBC w Diff NO MAN DIFF REQ WBC (4.8 - 10.8 /CUMM) 6.3 RBC (4.70 - 6.10 /CUMM) 2.86 L Hgb (14.0 - 18.0 G/DL) 9.4 L Hct (42 - 52 %) 28.0 L MCV (80.0 - 94.0 FL) 97.8 H MCH (27.0 - 31.0 PG) 32.7 H RDW (11.5 - 14.5 %) 15.0 H Plt Count (130 - 400 /CUMM) 180 MPV (7.4 - 10.4 FL) 8.5 Gran % (42.2 - 75.2 %) 59.6 Lymphocytes % (20.5 - 51.1 %) 21.8 Monocytes % (1.7 - 9.3 %) 7.6 Eosinophils % (0 - 5 %) 10.7 H Basophils % (0.0 - 2.0 %) 0.3 Absolute Granulocytes (1.4 - 6.5 /CUMM) 3.7 Absolute Lymphocytes (1.2 - 3.4 /CUMM) 1.4 Absolute Monocytes (0.10 - 0.60 /CUMM) 0.5 Absolute Eosinophils (0.0 - 0.7 /CUMM) 0.7 Absolute Basophils (0.0 - 0.2 /CUMM) 0 PUBS MCHC (33.0 - 37.0 G/DL) 33.5 07/10 1422 Coagulation APTT (25 - 37 SEC) 68 H Last 24 Hours of [place] Results: Blood cultures 2 July 09 negative Recent Imaging Studies: CT of the chest, abdomen and pelvis July 10 reveals small bilateral pleural effusions with overlying minimal dependent compressive atelectasis; no intra- abdominal or pelvic process; no organizing fluid collection surrounding the right hip Assessment/Plan Impression: Stable with temperatures and white blood cell count remaining normal on Unasyn now Day 6 of treatment for Proteus sepsis, possibly of urologic origin, though his urine cultures sent 1 and 2 days prior to admission and 1 day after admission were negative, versus pneumonia, though his CT scan does not suggest pneumonia and his sputum culture is positive for Rhodococcus equi, which can be a pathogen in immunocompromised patients but would not explain his bacteremia, versus a biliary process, though he has no findings on exam or imaging to suggest this. Treatment of Rhodococcus equi is often with macrolides in combination with other antibiotics such as Vancomycin, but, as his respiratory status is stable, do not feel that this is necessary at this time. Suggestion: 1. Would remove Granado catheter 2. Continue Unasyn with change to Amoxicillin 500 mg po every 8 hours if continues to improve
--- NOTE | 2016-07-11 10:35 | PN- Pulmonary ---
Subjective HPI/Critical Care Issues: The patient is awake, alert Telemetry demonstrates atrial fibrillation with suboptimal heart rate response The patient denies symptoms of chest pains nor significant dyspnea or palpitations The events of the last 24 hours as well as telemetry were reviewed. Review of Systems: The review of systems is negative for chest pains, palpitations nor lightheadedness. The remainder of the 14 point review of systems is noncontributory with the excepetion as above Objective Current Medications: Current Medications Sig/Chirag Start time Last Medication Dose Route Stop Time Status Admin Acetaminophen 1,000 MG .STK-MED ONE 07/10 210 DC IV 07/10 210 Acetaminophen 650 MG .STK-MED ONE 07/10 1722 DC PO 07/10 172 Acetaminophen 1,000 MG Q6-PRN PRN 07/06 2315 AC 07/11 IV 0847 Acetaminophen 650 MG Q6P PRN 07/05 2200 AC 07/06 PO 1905 Albuterol Sulfate 3 ML TID 07/06 1000 AC 07/11 INH 0824 Ampicillin Sodium/ 3,000 MG Q8 07/10 1400 AC 07/11 Sulbactam Sodium IV 0511 Sodium Chloride 100 ML Ampicillin Sodium/ 3,000 MG Q6 07/08 1800 DC 07/10 Sulbactam Sodium IV 0540 Sodium Chloride 100 ML Atorvastatin Calcium 40 MG 1700 07/06 1700 AC 07/10 PO 1748 Chlorhexidine 5 ML BID 07/08 1356 AC 07/11 Gluconate PO 0936 Cholecalciferol 1,000 IU DAILY 07/06 1000 AC 07/11 PO 0936 Cyanocobalamin 1,000 MCG DAILY 07/06 1000 AC 07/11 PO 0936 Guaifenesin 10 ML .STK-MED ONE 07/10 2233 DC PO 07/10 2234 Guaifenesin 10 ML .STK-MED ONE 07/10 1723 DC PO 07/10 1724 Guaifenesin 10 ML .STK-MED ONE 07/10 1320 DC PO 07/10 1321 Guaifenesin 10 ML Q6H 07/05 2315 AC 07/11 PO 0515 Heparin Sodium 25,000 UNIT Q24H 07/09 1030 AC 07/10 (Porcine) IV 1801 Sodium Chloride 500 ML Ipratropium [place] 2.5 ML TID 07/06 1000 AC 07/11 INH 0824 Magnesium Oxide 400 MG ONE ONE 07/11 0800 DC 07/11 PO 07/11 0801 0855 Metoprolol Tartrate 25 MG BID 07/09 0530 AC 07/11 PO 0936 Olanzapine 2.5 MG Q8P PRN 07/05 2330 AC 07/08 PO 2323 Phosphate 250 MG PC AND AT BEDTIME 07/09 1300 AC 07/11 PO 0855 Tamsulosin HCl 0.4 MG DAILY 07/09 1653 AC 07/11 PO 0936 Vital Signs & I&O Last 24 Hrs of Vitals and I&O: Vital Signs Date Time Temp Pulse Resp B/P Pulse O2 O2 Flow FiO2 Ox Delivery Rate 07/11 0936 112 107/67 07/11 0936 112 107/67 07/11 0900 95 Room Air Room Air 07/11 0845 97 Room Air 07/11 0800 99.1 104 16 122/70 96 Room Air Room Air 07/11 0654 98.4 96 18 114/70 97 Room Air 07/11 0400 Room Air 07/11 0000 Room Air 07/10 2114 106 92/72 07/10 2000 Room Air 07/10 1929 95 Room Air Room Air 07/10 1600 99.0 109 15 90/67 97 Room Air 07/10 1200 95 Room Air Intake & Output 07/11 1600 07/11 0800 07/11 0000 Intake Total 294 500 Output Total 350 100 Balance -56 400 Intake, IV 294 400 Intake, Oral 100 Output, Urine 350 100 Impression/Plan Impression/Plan Impression/Plan: Physical Exam General Appearance delirious not oriented Skin No Rashes, No Breakdown HEENT Atraumatic, PERRLA Neck Supple Cardiovascular Regular Rate, Normal S1, Normal S2, No Murmurs Lungs Normal Air Movement, bilateral rhonchi present, crackles both bases Abdomen Normal Bowel Sounds, Soft, No Tenderness Neurological Sensation Intact Extremities No Clubbing, No Cyanosis, unilateral edema present on the right leg Vascular Pulses Symmetrical CT CHEST ABD AND PELVIS IMPRESSION: 1. Small bilateral pleural effusions with overlying minimal dependent compressive atelectasis. Patchy groundglass opacities along the periphery of the right upper and right middle lobes. This could reflect a mild acute or developing infectious or inflammatory process. 2. No acute findings within the abdomen or pelvis. No organizing intra-abdominal or pelvic fluid collections. The gallbladder is physiologically distended but otherwise unremarkable. There are no visible radiopaque gallstones. 3. A moderate amount of retained stool throughout the colon, indicative of constipation. Feculent material is also identified within loops of small bowel, which is indicative of delayed intestinal transit. 4. Mechanical hardware within the right hip and proximal right femur, related to recent orthopedic surgery. 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 No visible organizing fluid collections to suggest abscess. No immediate mechanical hardware complications. 07/10 IMPRESSION This is a gentleman with chronic kidney disease, previous ischemic heart disease with previous KS, hyperlipidemia, peripheral vascular disease, previous AAA repair, who is on antiplatelet therapy for peripheral vascular disease, hypertension hyperlipidemia now here with a hip fracture s/p surg on 05/30, subsequently had delirium for very prolonged period due to multiple factors, previous urinary retention with UTI with previous urology evaluation, now comes in with * Significant delirium with worsening dementia, with proteus bacterimia prob due to urological origin. PT has rhodococci in the sputum with prob pna aswell but seems less likely * Sig constipation * New onset afib not a good candidate for emt intermediate anticoag * Previous urinary retention on Flomax with previous post void residue being high, was followed by urology, now with holden. 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 Patient was on antiplatelet therapy before and this needs to be started when he is able to take po. * IHD with cardiomyopathy * Hypertension and hyperlipidemia stable, Ischemic heart disease hypertension stable, Previous aaa * Sig djd cspine REC COnt abx per ID Aggresively rx constipation Miralax daily, hold only for diarrhea Senna and docusate daily Use Dulcolax supp later today if no bm IF no further bm would need enemas later today Ok to tele DO not remove holden till constipation is resolved Chlorhexide mouth wash bid daily Keep hob up Olanzapine only for severe delirium, if not hold it COnt heparin for now and then will transition to po anticoag (poor candidate for emt intermediate anticoag due to recurrent fall) Nebs atc COnt flomax Prog poor pt is dnr and dni Discussed with family in detail multiple times before
[2016-07-11 15:02] LABS: PTT 85 SEC (25-37)
--- NOTE | 2016-07-11 15:51 | NUR ---
PATIENT REMAINS ALERT CONFUSED. AFIB 90'S 110. 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 HEPARIN DRIP AT 20.5CC/HR. NO ACTIVE BLEEDING. REMAINS ON RA. SATS 95%. EVAL BY SPEECH THERAPIST. PO LIQUID UPGRADED TO THIN. PUREED DIET CONTINUES. PATIENT REMAINS ASPIRATION FREE. CASI SOFT WRIST RESTRAINTS. SAFETY MAINTAINED. WILL FOLLOW PLAN OF CARE.
[2016-07-11 16:00] VITALS: BP 100/60
--- NOTE | 2016-07-11 20:39 | PN- Resident CRCU ---
Subjective HPI/CRCU Issues: pt seen for: new onset a.fib, hypotension Pt was particularly vocal and confused today.Could not obtain any ROS. No acute overnight events or complaints. Objective Vital Signs & I&O Last 8 Hrs of Vitals and I&O: Intake & Output 07/11 1600 Intake Total 407.2 Output Total 300 Balance 107.2 Intake, IV 167.2 Intake, Oral 240 Output, Urine 300 Exam General Appearance: well developed/nourished, moderate distress Head: atraumatic Other Physical Findings: could not perform bc agitated Current Medications: Current Medications Sig/Chirag Start time Last Medication Dose Route Stop Time Status Admin Acetaminophen 1,000 MG .STK-MED ONE 07/11 0842 DC IV 07/11 0843 Acetaminophen 1,000 MG .STK-MED ONE 07/10 2105 DC IV 07/10 210 Acetaminophen 1,000 MG Q6-PRN PRN 07/06 2315 AC 07/11 IV 0847 Acetaminophen 650 MG Q6P PRN 07/05 2200 AC 07/06 PO 1905 Albuterol Sulfate 3 ML TID 07/06 1000 AC 07/11 INH 1854 Ampicillin Sodium/ 3,000 MG Q8 07/10 1400 AC 07/11 Sulbactam Sodium IV 1311 Sodium Chloride 100 ML Atorvastatin Calcium 40 MG 1700 07/06 1700 AC 07/11 PO 1701 Bisacodyl 10 MG ONCE ONE 07/11 1430 DC 07/11 [place] 07/11 1431 1434 Chlorhexidine 5 ML BID 07/08 1356 AC 07/11 Gluconate PO 0936 Cholecalciferol 1,000 IU DAILY 07/06 1000 AC 07/11 PO 0936 Cyanocobalamin 1,000 MCG DAILY 07/06 1000 AC 07/11 PO 0936 Guaifenesin 10 ML .STK-MED ONE 07/11 1151 DC PO 07/11 1152 Guaifenesin 10 ML .STK-MED ONE 07/11 0501 DC PO 07/11 0502 Guaifenesin 10 ML .STK-MED ONE 07/10 2233 DC PO 07/10 2234 Guaifenesin 10 ML Q6H 07/05 2315 AC 07/11 PO 1701 Heparin Sodium 25,000 UNIT Q24H 07/09 1030 AC 07/11 (Porcine) IV 1939 Sodium Chloride 500 ML Ipratropium [place] 2.5 ML TID 07/06 1000 AC 07/11 INH 1854 Magnesium Oxide 400 MG ONE ONE 07/11 0800 DC 07/11 PO 07/11 0801 0855 Metoprolol Tartrate 25 MG BID 07/09 0530 AC 07/11 PO 0936 Olanzapine 2.5 MG Q8P PRN 07/05 2330 AC 07/08 PO 2323 Phosphate 250 MG PC AND AT BEDTIME 07/09 1300 AC 07/11 PO 1701 Tamsulosin HCl 0.4 MG DAILY 07/09 1653 AC 07/11 PO 0936 Impression/Plan Impression/Problem List Impression: This is 86 year male with past medical history of hypertension, hyperlipidemia, CAD, TIA, recent hip fracture status post ORIF, BPH, CKD presented from [facility] after sustaining to unwitnessed fall resulting in head strike right head laceration also with one-week history of congestion associated with cough and low-grade fever and change in mental status and lethargic found to have left basilar opacity on x-ray suspicious for pneumonia. Patient spiked fever of 102.2 in ER suggestive of acute infection. He was then admitted to general medicine floor for further management. However at night his blood pressure continued to remain low, and after 3 L of resuscitation he continued to remain in the 90s over 40s range. Given concern for septic shock, patient was transferred to ICU for possible IJ and pressors. However,in ICU patient's vitals stabilized without requiring any pressors, his blood pressure remained in 110 to 130 range today with fluids. PLAN ID/ Respiratory: Pt satting well on 2 L NC. Initially, his CXR raises concern for l. basilar opacity; initially failed swallow eval, concern for aspiration pna. Afebrile. 1.)HCAP: Patient comes from and STR/LTAC. 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 pneumonia. He was initially on Vanco and ceftaz; then continued on ceftaz --> Unasyn. This is day 5 of abx; WBC at 6.6 today. Lungs still sound crackles and wheezes. LRC showing diphtheroids. There is concern for Rhodococcus equi. We will wait further lab confirmation and consider switching patient to vancomycin if necessary. His CXR shows dense retrocardiac opacity and ultrasound shows gallbladder hydrops. * Cont' Unasyn--> Switch to Amox tomorrow. * Bcx x 1 with Pansensitive proteus; Follow up cx negative * Negative flu, strep and legionella. * Pulmonology consult appreciated. * Continue TRC nebs * And oxygen as needed keep saturations above 92%. 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 He had prolonged stay in June 2016 with Proteus that was generally sensitive to everything but Macrobid. UA not overwhelmingly significant for UTI. Note that he has one blood culture now growing Proteus. Most likely source of this pathogen would be the system either urinary or biliary origin. * Follow final urinary cultures * Continue Flomax starting 07/09 * If abdominal ultrasound negative and patient continues to spike fevers we will do CAT scan: Of chest, abdomen, pelvis, and thigh. * Remove Granado today. 3.) Hydrops Gallbladder * U/S identifieid hydrops gallbladder as dictated above. AST/ALT WNL; Alp phos 105. * Surgery was consulted on 07/[address] Shearer, there is no role for surgery at the moment as the patient does not have any RUQ pain, murphys sign was -ve, and the patients liver enzymes/alk phos are WNL. Also there was no sign of obstruction. * As the patient did spike a tempthe previosu night we will go ahead with the plan to CT his abdomen/pelvis this AM. CVS: 1.) New onset Atrial fibrillation * patient developed new onset afib overnight * cardio consult placed and appreciated * On rate control with metoprolol 25 mg twice a day. HR 90s/100s * We'll also anticoagulate with IV heparin, to be titrated up to 2 times upper limit of PTT - if he remains in AF, a decision will need to be made regarding halfway AC as he has had multiple fallsHe has history of CAD., Hyperlipidemia , hypertension, TIA. Pt is a poor candidate for LT anticoag. Will switch to po anticoag tomorrow. 2.) CAD, HLD, HTN and TIA * currently negative 1600cc - s/p 20mg of lasix * in light of his recent kidney injury, consider resuming spironolactone tomorrow * On IV heparin * Continue statin Musculoskeletal: Patient has history of unwitnessed mechanical falls. He also has a recent history of ORIF. * Physical therapy evaluation * Status post ORIF * Continue DVT prophylaxis GI: * Patient passes swallow eval on 07/08. We will advance his diet to pure and honey. We will resume his by mouth meds. Neuro: Patient has significant agitation and combativeness. He has frequent admissions for delirium and so far all workup has been negative. Patient is an bilateral soft restraints. If patient is significantly agitated, he usually gets olanzapine. Family has been counseled about risks and benefits of antipsychotic medication in elderly, but they prefer symptomatic management of his agitation. * Continue Zyprexa when necessary severe agitation * Daily EKG for QTc at 2 pm today * Keep magnesium within normal limits Renal: Patient has history of CK D. This a.m. his creatinine was at 1.1. He came in at 1.2. * Avoid nephrotoxic agent * Gentle IV hydration Hold spironolactone and Lasix * Recheck renal function in a.m. Subcutaneous Lovenox DNR/DNI npo Problem List: 1. Atrial fibrillation 2. Multifactorial gait disorder 3. Altered mental status 4. Delirium 5. Pneumonia Pain Ratin Tomorrow's Labs & Rationales: icu cbc Plan DVT/Prophylaxis: pharmacological
[2016-07-11 21:06] VITALS: BP 96/64
[2016-07-12 02:49] LABS: ABSOLUTE BASOPHIL COUNT 0 /CUMM (0.0-0.2); ABSOLUTE EOSINOPHIL COUNT 0.6 /CUMM (0.0-0.7); ABSOLUTE GRANULOCYTE CT 4.1 /CUMM (1.4-6.5); ABSOLUTE LYMPH COUNT 1.7 /CUMM (1.2-3.4); ABSOLUTE MONOCYTE COUNT 0.5 /CUMM (0.10-0.60); BASOPHIL % 0.4 % (0.0-2.0); GRANULOCYTE % 58.9 % (42.2-75.2); HEMATOCRIT 26.1 % (42-52); MEAN CORPUSCULAR HGB 33.3 PG (27.0-31.0); MEAN CORPUSCULAR HGB CONC 33.9 G/DL (33.0-37.0); MEAN CORPUSCULAR VOLUME 98.3 FL (80.0-94.0); MEAN PLATELET VOLUME 8.5 FL (7.4-10.4); PLATELET COUNT 220 /CUMM (130-400); RED BLOOD CELL CT 2.65 /CUMM (4.70-6.10)
[2016-07-12 02:56] LABS: PTT 69 SEC (25-37)
[2016-07-12 08:00] VITALS: BP 100/60
--- NOTE | 2016-07-12 08:25 | PN- Housestaff ---
Subjective Follow-up For: HCAP New-onset atrial fibrillation Tele-Events Since Last Visit: Hermilo greenberg no overnight events Subjective: Pt was particularly vocal and confused today.Could not obtain any ROS. No acute overnight events or complaint. Remained afebrile overnight Review of Systems Constitutional: Denies: diaphoresis, fever. EENTM: Denies: see HPI. Cardiovascular: Denies: see HPI. Respiratory: Denies: see HPI. Gastrointestinal: Denies: see HPI. Objective Last 24 Hrs of Vital Signs/I&O Vital Signs Date Time Temp Pulse Resp B/P Pulse O2 O2 Flow FiO2 Ox Delivery Rate 07/12 0821 96 Room Air 07/12 0800 98.8 120 20 100/60 94 Room Air 07/12 0000 Room Air 07/11 2148 108 96/64 07/11 2106 98.5 71 20 /64 93 Room Air 07/11 1900 95 Room Air Room Air 07/11 1700 97 Room Air 07/11 1600 97.2 92 20 100/60 97 Room Air 07/11 1513 Nasal 1.0L Cannula 07/11 1200 95 Room Air Room Air 07/11 0936 112 107/67 07/11 0936 112 107/67 07/11 0900 95 Room Air Room Air Intake & Output 07/12 1600 07/12 0800 07/12 0000 Intake Total 214 390 Output Total 600 Balance -386 390 Intake, IV 214 150 Intake, Oral 0 240 Output, Urine 600 Physical Exam General Appearance: Alert Skin: No Rashes, No Breakdown HEENT: Atraumatic, PERRLA Cardiovascular: Regular Rate, Normal S1, No Murmurs Lungs: Clear to Auscultation Abdomen: Normal Bowel Sounds, Soft Neurological: Normal Speech, Strength at 5/5 X4 Ext Extremities: No Clubbing, No Cyanosis Current Medications: Current Medications Sig/Chirag Start time Last Medication Dose Route Stop Time Status Admin Acetaminophen 1,000 MG Q6-PRN PRN 07/06 2315 AC 07/11 IV 0847 Acetaminophen 650 MG Q6P PRN 07/05 2200 AC 07/06 PO 1905 Albuterol Sulfate 3 ML TID 07/06 1000 AC 07/12 INH 0801 Ampicillin Sodium/ 3,000 MG Q8 07/10 1400 AC 07/12 Sulbactam Sodium IV 0526 Sodium Chloride 100 ML Atorvastatin Calcium 40 MG 1700 07/06 1700 AC 07/11 PO 1701 Bisacodyl 10 MG ONCE ONE 07/11 1430 DC 07/11 AR 07/11 1431 1434 Chlorhexidine 5 ML BID 07/08 1356 AC 07/11 Gluconate PO 2148 Cholecalciferol 1,000 IU DAILY 07/06 1000 AC 07/11 PO 0936 Cyanocobalamin 1,000 MCG DAILY 07/06 1000 AC 07/11 PO 0936 Guaifenesin 10 ML .STK-MED ONE 07/11 2141 DC PO 07/11 2142 Guaifenesin 10 ML .STK-MED ONE 07/11 1646 DC PO 07/11 1647 Guaifenesin 10 ML .STK-MED ONE 07/11 1151 DC PO 07/11 1152 Guaifenesin 10 ML Q6H 07/05 2315 AC 07/11 PO 2147 Heparin Sodium 25,000 UNIT Q24H 07/09 1030 AC 07/11 (Porcine) IV 1939 Sodium Chloride 500 ML Ipratropium [place] 2.5 ML TID 07/06 1000 AC 07/12 INH 0801 Metoprolol Tartrate 25 MG BID 07/09 0530 AC 07/11 PO 0936 Olanzapine 2.5 MG Q8P PRN 07/05 2330 AC 07/08 PO 2323 Phosphate 250 MG PC AND AT BEDTIME 07/09 1300 AC 07/11 PO 2147 Tamsulosin HCl 0.4 MG DAILY 07/09 1653 AC 07/11 PO 0936 Last 24 Hrs of Lab/Wilner Results Last 24 Hrs of Labs/Mics: Laboratory Tests 07/12/16 0200: Anion Gap 5, Estimated GFR 57 L, Glucose 100 H, Calcium 8.4, Phosphorus 3.5, Magnesium 1.9, Total Bilirubin 0.9, AST 39, ALT 47, Albumin 2.4 L, APTT 69 H, CBC w Diff NO MAN DIFF REQ, RBC 2.65 L, MCV 98.3 H, MCH 33.3 H, RDW 15.0 H, MPV 8.5, Gran % 58.9, Lymphocytes % 24.3, Monocytes % 7.4, Eosinophils % 9.0 H, Basophils % 0.4, Absolute Granulocytes 4.1, Absolute Lymphocytes 1.7, Absolute Monocytes 0.5, Absolute Eosinophils 0.6, Absolute Basophils 0, PUBS MCHC 33.9 07/11/16 1420: APTT 85 H Assessment/Plan Assessment: Assessment: This is 86 year male with past medical history of hypertension, hyperlipidemia, CAD, TIA, recent hip fracture status post ORIF, BPH, CKD presented from [facility] after sustaining to unwitnessed fall resulting in head strike right head laceration also with one-week history of congestion associated with cough and low-grade fever and change in mental status and lethargic found to have left basilar opacity on x-ray suspicious for pneumonia. Patient spiked fever of 102.2 in ER suggestive of acute infection. \ Following problems were addressed while patient was on [facility], ICU and then on telemetry floor: 1.)HCAP: Patient comes from and STR/LTAC. 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 He was initially on Vanco and ceftaz; then continued on ceftaz --> Unasyn. This is day 5 of abx; WBC at 6.6 today. Lungs still sound crackles and wheezes. LRC showing diphtheroids. There is concern for Rhodococcus equi. We will wait further lab confirmation and consider switching patient to vancomycin if necessary. His CXR shows dense retrocardiac opacity and ultrasound shows gallbladder hydrops. * As patient clinically improved Will DC IV Unasyn as per ID recommendations start the patient on doxycycline 500 mg every 8 * Bcx x 1 with Pansensitive proteus; Follow up cx negative * Negative flu, strep and legionella. * Pulmonology consult appreciated. * Continue TRC nebs * And oxygen as needed keep saturations above 92%. 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 He had prolonged stay in June 2016 with Proteus that was generally sensitive to everything but Macrobid. UA not overwhelmingly significant for UTI. Note that he has one blood culture now growing Proteus. Most likely source of this pathogen would be the system either urinary or biliary origin. * final urinary cultures are negative * Continue Flomax starting 07/09 * If abdominal ultrasound negative and patient continues to spike fevers we will do CAT scan: Of chest, abdomen, pelvis, and thigh. * Remove Granado today. 3.) Hydrops Gallbladder * U/S identifieid hydrops gallbladder as dictated above. AST/ALT WNL; Alp phos 105. * Surgery was consulted on 07/[address] Shearer, there is no role for surgery at the moment as the patient does not have any RUQ pain, murphys sign was -ve, and the patients liver enzymes/alk phos are WNL. Also there was no sign of obstruction. * As the patient did spike a tempthe previosu night we will go ahead with the plan to CT his abdomen/pelvis this AM. CVS: 1.) New onset Atrial fibrillation * patient developed new onset afib overnight * cardio consult placed and appreciated * On rate control with metoprolol 25 mg twice a day. HR 90s/100s * We'll also anticoagulate with IV heparin, to be titrated up to 2 times upper limit of PTT - if he remains in AF, a decision will need to be made regarding chcf AC as he has had multiple fallsHe has history of CAD., Hyperlipidemia , hypertension, TIA. Pt is a poor candidate for LT anticoag. Will switch to po anticoag tomorrow. 2.) CAD, HLD, HTN and TIA * currently negative 1600cc - s/p 20mg of lasix * in light of his recent kidney injury, consider resuming spironolactone tomorrow * On IV heparin * Continue statin Musculoskeletal: Patient has history of unwitnessed mechanical falls. He also has a recent history of ORIF. * Physical therapy evaluation * Status post ORIF * Continue DVT prophylaxis GI: * Patient passes swallow eval on 07/08. We will advance his diet to pure and honey. We will resume his by mouth meds. Neuro: Patient has significant agitation and combativeness. He has frequent admissions for delirium and so far all workup has been negative. Patient is an bilateral soft restraints. If patient is significantly agitated, he usually gets olanzapine. Family has been counseled about risks and benefits of antipsychotic medication in elderly, but they prefer symptomatic management of his agitation. * Continue Zyprexa when necessary severe agitation * Daily EKG for QTc at 2 pm today * Keep magnesium within normal limits Renal: Patient has history of CK D. This a.m. his creatinine was at 1.1. He came in at 1.2. * Avoid nephrotoxic agent * Gentle IV hydration Hold spironolactone and Lasix * Recheck renal function in a.m. Subcutaneous Lovenox DNR/DNI npo Problem List: 1. Atrial fibrillation 2. Pneumonia 3. Delirium Pain Ratin Pain Location: No pain at this time Pain Goal: Remain pain free Pain Plan: Tylenol Tomorrow's Labs & Rationales: No need of labs tomorrow
--- NOTE | 2016-07-12 09:21 | Transfer of Care Summary ---
Hospital Course Course Hospital Course: This is 86 year male with past medical history of hypertension, hyperlipidemia, CAD, TIA, recent hip fracture status post ORIF, BPH, CKD presented from [facility] after sustaining to unwitnessed fall resulting in head strike right head laceration also with one-week history of congestion associated with cough and low-grade fever and change in mental status and lethargic found to have left basilar opacity on x-ray suspicious for pneumonia. Patient spiked fever of 102.2 in ER suggestive of acute infection. He was then admitted to general medicine floor for further management. However at night his blood pressure continued to remain low, and after 3 L of resuscitation he continued to remain in the 90s over 40s range. Given concern for septic shock, patient was transferred to ICU for possible IJ and pressors. While in ICU patient's vitals stabilized without requiring any pressors. He had a PICC placed for possible fluid resuscitation. His stay was complicated by his baseline delirium and new onset A.fib requiring anticoagulation. PLAN ID/ Respiratory: Pt satting well on 2 L NC. Initially, his CXR raises concern for l. basilar opacity; concern for aspiration pna. Afebrile. * Passed swallow eval for puree and thin liquids. But. con't monitor aspiration 1.)HCAP: Patient comes from and STR/LTAC. Raises concern for HCAP. He was initially on Vanco and ceftaz; then continued on ceftaz --> Unasyn. Lungs still sound crackly and wheezy. LRC showing Rhodococcus equi. Pt afebrile 48hrs; unlikely need for vanco for R. equi. Switch to PO antibiotics. * Cont' Unasyn--> Switch to Amox per ID. * Bcx x 1 with Pansensitive proteus; Follow up cx negative * Negative flu, strep and legionella. * Pulmonology consult appreciated. * Continue TRC nebs * And oxygen as needed keep saturations above 92%. 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 He had prolonged stay in June 2016 with Proteus that was generally sensitive to everything but Macrobid. UA not overwhelmingly significant for UTI. Note that he has one blood culture now growing Proteus. Most likely source of this pathogen would be the system either urinary or biliary origin. * Follow final urinary cultures * Continue Flomax starting 07/09 * REMOVED HOLDEN YESTERDAY--> but pt failed voiding trial so night team re- ordered holden bc wanted to decrease trauma from straight cath in setting of heparin drip. 3.) Hydrops Gallbladder * U/S identifieid hydrops gallbladder. * Surgery was consulted on 07/[address] Shearer, there is no role for surgery at the moment as the patient does not have any RUQ pain, murphys sign was -ve, and the patients liver enzymes/alk phos are WNL. Also there was no sign of obstruction. CVS: 1.) New onset Atrial fibrillation * patient developed new onset afib in ICU stay * On rate control with metoprolol 25 mg twice a day. HR 90s/100s. Can increase as long as HR tolerates. 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 * He has history of CAD., Hyperlipidemia, hypertension, TIA. Pt is a poor candidate for LT anticoag. Will switch to po anticoag. 2.) CAD, HLD, HTN and TIA * currently negative 1600cc - s/p 20mg of lasix * in light of his recent kidney injury, consider resuming spironolactone tomorrow * On IV heparin * Continue statin Musculoskeletal: Patient has history of unwitnessed mechanical falls. He also has a recent history of ORIF. * Physical therapy evaluation * Status post ORIF--HE WILL NEED ANTICOAGULATION BC BARELY A MONTH OUT FROM SURGERY! * Continue DVT prophylaxis GI: * Patient passes swallow eval on 07/08. We will advance his diet to pure and thins. We will resume his by mouth meds. Neuro: Patient has significant agitation and combativeness. He has frequent admissions for delirium and so far all workup has been negative. Patient is an bilateral soft restraints. If patient is significantly agitated, he usually gets olanzapine. Family has been counseled about risks and benefits of antipsychotic medication in elderly, but they prefer symptomatic management of his agitation. * Continue Zyprexa when necessary severe agitation * Daily EKG for QTc at 2 pm today * Keep magnesium within normal limits Renal: Patient has history of CK D. This a.m. his creatinine was at 1.1. He came in at 1.2. * Avoid nephrotoxic agent * Gentle IV hydration * Hold spironolactone and Lasix-RESUME ON DISCHARGE! * Recheck renal function in a.m. Assessment/Plan: SEE ABOVE
--- NOTE | 2016-07-12 09:54 | PN- Cardiology ---
Subjective Subjective: Patient confused, agitated, chronically coughing. Review of Systems: Unable to obtain due to confusion Objective Vital Signs and I&Os Vital Signs Date Time Temp Pulse Resp B/P Pulse O2 O2 Flow FiO2 Ox Delivery Rate 07/12 0821 96 Room Air 07/12 0800 98.8 120 20 100/60 94 Room Air 07/12 0000 Room Air 07/11 2148 108 96/64 07/11 2106 98.5 71 20 96/64 93 Room Air 07/11 1900 95 Room Air Room Air 07/11 1700 97 Room Air 07/11 1600 97.2 92 20 100/60 97 Room Air 07/11 1513 Nasal 1.0L Cannula 07/11 1200 95 Room Air Room Air Intake & Output 07/12 1600 07/12 0800 07/12 0000 07/11 1600 07/11 0800 07/11 0000 Intake Total 214 390 407.2 294 500 Output Total 600 300 350 100 Balance -386 390 107.2 -56 400 Intake, IV 214 150 167.2 294 400 Intake, Oral 0 240 240 100 Output, Urine 600 300 350 100 Physical Exam: Patient is a well-developed well-nourished male appearing in no acute distress HEENT is unremarkable Neck is supple there is no JVD Lungs diffuse rhonchi and wheezes bilaterally Heart irregular rhythm S1 and S2 are normal no gallops or rubs 2/6 soft ejection murmur left sternal border Abdomen bowel sounds positive Extremities without edema Current Medications: Current Medications Sig/Chirag Start time Last Medication Dose Route Stop Time Status Admin Acetaminophen 1,000 MG Q6-PRN PRN 07/06 2315 AC 07/11 IV 0847 Acetaminophen 650 MG Q6P PRN 07/05 2200 AC 07/06 PO 1905 Albuterol Sulfate 3 ML TID 07/06 1000 AC 07/12 INH 0801 Amoxicillin 500 MG Q8 07/12 0848 AC PO Ampicillin Sodium/ 3,000 MG Q8 07/10 1400 DC 07/12 Sulbactam Sodium IV 0526 Sodium Chloride 100 ML Atorvastatin Calcium 40 MG 1700 07/06 1700 AC 07/11 PO 1701 Bisacodyl 10 MG ONCE ONE 07/11 1430 DC 07/11 OK 07/11 1431 1434 Chlorhexidine 5 ML BID 07/08 1356 AC 07/11 Gluconate PO 2148 Cholecalciferol 1,000 IU DAILY 07/06 1000 AC 07/11 PO 0936 Cyanocobalamin 1,000 MCG DAILY 07/06 1000 AC 07/11 PO 0936 Guaifenesin 10 ML .STK-MED ONE 07/11 2141 DC PO 07/11 214 Guaifenesin 10 ML .STK-MED ONE 07/11 1646 DC PO 07/11 1647 Guaifenesin 10 ML .STK-MED ONE 07/11 1151 DC PO 07/11 1152 Guaifenesin 10 ML Q6H 07/05 2315 AC 07/11 PO 2147 Heparin Sodium 25,000 UNIT Q24H 07/09 1030 AC 07/11 (Porcine) IV 1939 Sodium Chloride 500 ML Ipratropium [place] 2.5 ML TID 07/06 1000 AC 07/12 INH 0801 Metoprolol Tartrate 25 MG BID 07/09 0530 AC 07/11 PO 0936 Olanzapine 2.5 MG Q8P PRN 07/05 2330 AC 07/08 PO 2323 Phosphate 250 MG PC AND AT BEDTIME 07/09 1300 AC 07/11 PO 214 Tamsulosin HCl 0.4 MG DAILY 07/09 1653 AC 07/11 PO 0936 Results Last 48 Hrs of Labs/Mics: Laboratory Tests 07/12/16 0200: Anion Gap 5, Estimated GFR 57 L, Glucose 100 H, Calcium 8.4, Phosphorus 3.5, Magnesium 1.9, Total Bilirubin 0.9, AST 39, ALT 47, Albumin 2.4 L, APTT 69 H, CBC w Diff NO MAN DIFF REQ, RBC 2.65 L, MCV 98.3 H, MCH 33.3 H, RDW 15.0 H, MPV 8.5, Gran % 58.9, Lymphocytes % 24.3, Monocytes % 7.4, Eosinophils % 9.0 H, Basophils % 0.4, Absolute Granulocytes 4.1, Absolute Lymphocytes 1.7, Absolute Monocytes 0.5, Absolute Eosinophils 0.6, Absolute Basophils 0, PUBS MCHC 33.9 07/11/16 1420: APTT 85 H 07/11/16 0440: Anion Gap 7, Estimated GFR > 60, Glucose 104 H, Calcium 8.0 L, Phosphorus 3.5, Magnesium 1.8, Total Bilirubin 0.8, AST 28, ALT 46, Albumin 2.2 L, CBC w Diff NO MAN DIFF REQ, RBC 2.86 L, MCV 97.8 H, MCH 32.7 H, RDW 15.0 H, MPV 8.5, Gran % 59.6, Lymphocytes % 21.8, Monocytes % 7.6, Eosinophils % 10.7 H, Basophils % 0.3, Absolute Granulocytes 3.7, Absolute Lymphocytes 1.4, Absolute Monocytes 0.5, Absolute Eosinophils 0.7, Absolute Basophils 0, PUBS MCHC 33.5 07/11/16 0243: APTT 66 H 07/10/16 1600: Troponin I Cancelled 07/10/16 1422: APTT 68 H Telemetry personally reviewed atrial fibrillation with rapid ventricular response Recent Imaging Studies: Echocardiogram CONCLUSIONS Left ventricular cavity size normal. Normal left ventricular wall thickness. Moderate anteroseptal hypokinesis. Left ventricular ejection fraction is estimated at 40 %. Normal right ventricular size and function. Mild left atrial dilatation. [id number] tricuspid regurgitation. Unable to estimate the right ventricular systolic pressure but no findings to suggest severe pulmonary hypertension. Possible left pleural effusion. Nico Ruiz M.D. Assessment/Plan Assessment/Plan 1. AMS with sepsis 2. New onset atrial fibrillation 3. Reported hx of CAD/VA/PVD/AAA repair/?TIA hx 4. HTN/HLD 5. s/p recent mechanical fall with hip fx and ORIF, recurrent falls 6. CKD 7. Bifascicular block, previously noted 8. Mild cardiomyopathy ejection fraction 40% Recommendations 1. Continue rate control for atrial fibrillation 2. Continue IV heparin but I feel that he is not a good candidate for long-term anticoagulation due to his history of falls and delirium. 3. Continue antibiotics per ID Continue telemetry? Yes
--- NOTE | 2016-07-12 11:04 | PN- Infect Dx ---
Subjective Subjective: Afebrile without complaints Objective Last 24 Hrs of Vital Signs/I&O Vital Signs Date Time Temp Pulse Resp B/P Pulse O2 O2 Flow FiO2 Ox Delivery Rate 07/12 0950 120 100/60 07/12 0949 120 100/60 07/12 0821 96 Room Air 07/12 0800 98.8 120 20 100/60 94 Room Air 07/12 0000 Room Air 07/11 2148 108 96/64 07/11 2106 98.5 71 20 96/64 93 Room Air 07/11 1900 95 Room Air Room Air 07/11 1700 97 Room Air 07/11 1600 97.2 92 20 100/60 97 Room Air 07/11 1513 Nasal 1.0L Cannula 07/11 1200 95 Room Air Room Air Intake & Output 07/12 1600 07/12 0800 07/12 0000 Intake Total 214 390 Output Total 600 Balance -386 390 Intake, IV 214 150 Intake, Oral 0 240 Output, Urine 600 Physical Exam Other Physical Findings: He remains lethargic but arousable Lungs are clear anteriorly Heart regular rhythm with no murmur Extremities trace edema both lower extremities Graando catheter remains in place Results Last 24 Hours of Lab Results: Laboratory Tests 07/12 07/11 0200 1420 Chemistry Sodium (137 - 145 mmol/L) 140 Potassium (3.5 - 5.1 mmol/L) 4.2 Chloride (98 - 107 mmol/L) 110 H Carbon Dioxide (22 - 30 mmol/L) 25 Anion Gap (5 - 16) 5 BUN (9 - 20 mg/dL) 17 Creatinine (0.7 - 1.2 mg/dL) 1.2 Estimated GFR (>60 ml/min) 57 L Glucose (65 - 99 mg/dL) 100 H Calcium (8.4 - 10.2 mg/dL) 8.4 Phosphorus (2.5 - 4.5 mg/dL) 3.5 Magnesium (1.6 - 2.3 mg/dL) 1.9 Total Bilirubin (0.2 - 1.3 mg/dL) 0.9 AST (17 - 59 U/L) 39 ALT (21 - 72 U/L) 47 Albumin (3.5 - 5.0 g/dL) 2.4 L Coagulation APTT (25 - 37 SEC) 69 H 85 H Hematology CBC w Diff NO MAN DIFF REQ WBC (4.8 - 10.8 /CUMM) 7.0 RBC (4.70 - 6.10 /CUMM) 2.65 L Hgb (14.0 - 18.0 G/DL) 8.8 L Hct (42 - 52 %) 26.1 L MCV (80.0 - 94.0 FL) 98.3 H MCH (27.0 - 31.0 PG) 33.3 H RDW (11.5 - 14.5 %) 15.0 H Plt Count (130 - 400 /CUMM) 220 MPV (7.4 - 10.4 FL) 8.5 Gran % (42.2 - 75.2 %) 58.9 Lymphocytes % (20.5 - 51.1 %) 24.3 Monocytes % (1.7 - 9.3 %) 7.4 Eosinophils % (0 - 5 %) 9.0 H Basophils % (0.0 - 2.0 %) 0.4 Absolute Granulocytes (1.4 - 6.5 /CUMM) 4.1 Absolute Lymphocytes (1.2 - 3.4 /CUMM) 1.7 Absolute Monocytes (0.10 - 0.60 /CUMM) 0.5 Absolute Eosinophils (0.0 - 0.7 /CUMM) 0.6 Absolute Basophils (0.0 - 0.2 /CUMM) 0 PUBS MCHC (33.0 - 37.0 G/DL) 33.9 Last 24 Hours of Wilner Results: Blood cultures July 09 negative Assessment/Plan Impression: Stable with temperatures and white blood cell count remaining normal now on Amoxicillin Day 7 of treatment for Proteus sepsis, possibly secondary to a urinary tract infection versus a pulmonary process versus a biliary process. Suggestion: 1. Would remove Granado catheter as soon as feasible 2. Continue Amoxicillin to complete a 14 day course of antibiotics
--- NOTE | 2016-07-12 11:18 | PN- Pulmonary ---
Subjective HPI/Critical Care Issues: Afebrile without complaints Still confused Sleepy ROS otherwise neg Objective Current Medications: Current Medications Sig/Chirag Start time Last Medication Dose Route Stop Time Status Admin Acetaminophen 1,000 MG Q6-PRN PRN 07/06 2315 AC 07/11 IV 0847 Acetaminophen 650 MG Q6P PRN 07/05 2200 AC 07/06 PO 1905 Albuterol Sulfate 3 ML TID 07/06 1000 AC 07/12 INH 0801 Amoxicillin 500 MG Q8 07/12 0848 AC 07/12 PO 0950 Ampicillin Sodium/ 3,000 MG Q8 07/10 1400 DC 07/12 Sulbactam Sodium IV 0526 Sodium Chloride 100 ML Atorvastatin Calcium 40 MG 1700 07/06 1700 AC 07/11 PO 1701 Bisacodyl 10 MG ONCE ONE 07/11 1430 DC 07/11 IN 07/11 1431 1434 Chlorhexidine 5 ML BID 07/08 1356 AC 07/12 Gluconate PO 0958 Cholecalciferol 1,000 IU DAILY 07/06 1000 AC 07/12 PO 0949 Cyanocobalamin 1,000 MCG DAILY 07/06 1000 AC 07/12 PO 0950 Guaifenesin 10 ML .STK-MED ONE 07/11 2141 DC PO 07/11 2142 Guaifenesin 10 ML .STK-MED ONE 07/11 1646 DC PO 07/11 1647 Guaifenesin 10 ML .STK-MED ONE 07/11 1151 DC PO 07/11 1152 Guaifenesin 10 ML Q6H 07/05 2315 AC 07/12 PO 0948 Heparin Sodium 25,000 UNIT Q24H 07/09 1030 AC 07/11 (Porcine) IV 1939 Sodium Chloride 500 ML Ipratropium [place] 2.5 ML TID 07/06 1000 AC 07/12 INH 0801 Metoprolol Tartrate 25 MG BID 07/09 0530 AC 07/12 PO 0950 Olanzapine 2.5 MG Q8P PRN 07/05 2330 AC 07/12 PO 0949 Phosphate 250 MG PC AND AT BEDTIME 07/09 1300 AC 07/12 PO 0950 Tamsulosin HCl 0.4 MG DAILY 07/09 1653 AC 07/12 PO 0949 Vital Signs & I&O Last 24 Hrs of Vitals and I&O: Vital Signs Date Time Temp Pulse Resp B/P Pulse O2 O2 Flow FiO2 Ox Delivery Rate 07/12 0950 120 100/60 07/12 0949 120 100/60 07/12 0821 96 Room Air 07/12 0800 98.8 120 20 100/60 94 Room Air 07/12 0000 Room Air 07/11 2148 108 96/64 07/11 2106 98.5 71 20 /64 93 Room Air 07/11 1900 95 Room Air Room Air 07/11 1700 97 Room Air 07/11 1600 97.2 92 20 100/60 97 Room Air 07/11 1513 Nasal 1.0L Cannula 07/11 1200 95 Room Air Room Air Intake & Output 07/12 1600 07/12 0800 07/12 0000 Intake Total 214 390 Output Total 600 Balance -386 390 Intake, IV 214 150 Intake, Oral 0 240 Output, Urine 600 Impression/Plan Impression/Plan Impression/Plan: Physical Exam General Appearance delirious not oriented Skin No Rashes, No Breakdown HEENT Atraumatic, PERRLA Neck Supple Cardiovascular Regular Rate, Normal S1, Normal S2, No Murmurs Lungs Normal Air Movement, bilateral rhonchi present, crackles both bases Abdomen Normal Bowel Sounds, Soft, No Tenderness Neurological Sensation Intact Extremities No Clubbing, No Cyanosis, unilateral edema present on the right leg Vascular Pulses Symmetrical CT CHEST ABD AND PELVIS IMPRESSION: 1. Small bilateral pleural effusions with overlying minimal dependent compressive atelectasis. Patchy groundglass opacities along the periphery of the right upper and right middle lobes. This could reflect a mild acute or developing infectious or inflammatory process. 2. No acute findings within the abdomen or pelvis. No organizing intra-abdominal or pelvic fluid collections. The gallbladder is physiologically distended but otherwise unremarkable. There are no visible radiopaque gallstones. 3. A moderate amount of retained stool throughout the colon, indicative of constipation. Feculent material is also identified within loops of small bowel, which is indicative of delayed intestinal transit. 4. Mechanical hardware within the right hip and proximal right femur, related to recent orthopedic surgery. 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 No visible organizing fluid collections to suggest abscess. No immediate mechanical hardware complications. 07/10 IMPRESSION This is a gentleman with chronic kidney disease, previous ischemic heart disease with previous ID, hyperlipidemia, peripheral vascular disease, previous AAA repair, who is on antiplatelet therapy for peripheral vascular disease, hypertension hyperlipidemia now here with a hip fracture s/p surg on 05/30, subsequently had delirium for very prolonged period due to multiple factors, previous urinary retention with UTI with previous urology evaluation, now comes in with * Significant delirium with worsening dementia, with proteus bacterimia prob due to urological origin. 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 Patient was on antiplatelet therapy before and this needs to be started when he is able to take po. * IHD with cardiomyopathy * Hypertension and hyperlipidemia stable, Ischemic heart disease hypertension stable, Previous aaa * Sig djd cspine REC COnt abx per ID Aggresively rx constipation, please do enemas today, if no bm Miralax daily, please start Senna and docusate daily Pt does have urinary retention when he is constipated and this needs to be rxd Remove holden after bm Chlorhexide mouth wash bid daily Keep hob up Olanzapine only for severe delirium, if not hold it Can dc heparin as he is not a candidate for [facility] anticoag for now and can start back on low dose lovenox 30 mg daily Nebs atc COnt flomax Prog poor pt is dnr and dni Discussed with family in detail multiple times before
--- NOTE | 2016-07-12 13:11 | NUR ---
1300: PATIENT IS REFUSING ALL OF HIS PO MEDS; PATIENT IS ALSO REFUSING LUNCH; URINE OUTPUT OUT OF COOK IS 250 ML; MD CORINNA LYLE MADE AWARE; WILL CONTINUE TO MONITOR.
[2016-07-12 15:50] VITALS: BP 106/68
[2016-07-12 23:46] VITALS: BP 112/72
[2016-07-13 06:08] LABS: ABSOLUTE BASOPHIL COUNT 0 /CUMM (0.0-0.2); ABSOLUTE EOSINOPHIL COUNT 0.8 /CUMM (0.0-0.7); ABSOLUTE GRANULOCYTE CT 3.6 /CUMM (1.4-6.5); ABSOLUTE LYMPH COUNT 1.3 /CUMM (1.2-3.4); ABSOLUTE MONOCYTE COUNT 0.5 /CUMM (0.10-0.60); BASOPHIL % 0.3 % (0.0-2.0); GRANULOCYTE % 58.5 % (42.2-75.2); HEMATOCRIT 25.8 % (42-52); MEAN CORPUSCULAR HGB 33.2 PG (27.0-31.0); MEAN CORPUSCULAR HGB CONC 33.7 G/DL (33.0-37.0); MEAN CORPUSCULAR VOLUME 98.5 FL (80.0-94.0); MEAN PLATELET VOLUME 8.4 FL (7.4-10.4); PLATELET COUNT 214 /CUMM (130-400); RBC DISTRIBUTION WIDTH 15.5 % (11.5-14.5); RED BLOOD CELL CT 2.62 /CUMM (4.70-6.10); WHITE BLOOD CELL COUNT 6.1 /CUMM (4.8-10.8)
--- NOTE | 2016-07-13 06:26 | PN- Housestaff ---
Subjective Follow-up For: Penumonia Resp failure Acute delirium A fib, new onset Complaints: pt unable to provide hx Tele-Events Since Last Visit: A fib Subjective: Awake and confused,could not provide hx Review of Systems Constitutional: Reports: see HPI. Objective Last 24 Hrs of Vital Signs/I&O Vital Signs Date Time Temp Pulse Resp B/P Pulse O2 O2 Flow FiO2 Ox Delivery Rate 07/13 0548 93 Room Air 07/13 0000 95 Room Air 07/12 2346 97.4 84 20 112/72 95 Room Air 07/12 2023 102 128/76 07/12 1627 96 Room Air 07/12 1600 Room Air 07/12 1550 98.6 104 20 106/68 92 Room Air 07/12 0950 120 100/60 07/12 0949 120 100/60 07/12 0821 96 Room Air 07/12 0800 98.8 120 20 100/60 94 Room Air Intake & Output 07/13 0800 07/13 0000 07/12 1600 Intake Total 60 400 Output Total 150 250 Balance -90 150 Intake, IV 160 Intake, Oral 60 240 Output, Urine 150 250 Physical Exam General Appearance: Alert, Cooperative, Mild Distress Skin: No Rashes, No Breakdown HEENT: Atraumatic, PERRLA Cardiovascular: Regular Rate, Normal S1, Normal S2 Lungs: [place] b/l Abdomen: Normal Bowel Sounds, Soft, No Tenderness Current Medications: Current Medications Sig/Chirag Start time Last Medication Dose Route Stop Time Status Admin Acetaminophen 650 MG .STK-MED ONE 07/12 2015 DC PO 07/12 2017 Acetaminophen 650 MG .STK-MED ONE 07/12 1252 DC PO 07/12 1253 Acetaminophen 1,000 MG Q6-PRN PRN 07/06 2315 AC 07/11 IV 0847 Acetaminophen 650 MG Q6P PRN 07/05 2200 AC 07/12 PO 2023 Albuterol Sulfate 3 ML BID 07/12 2200 AC 07/13 INH 0526 Albuterol Sulfate 3 ML TID 07/06 1000 DC 07/12 INH 1623 Amoxicillin 500 MG Q8 07/12 0848 AC 07/13 PO 0515 Ampicillin Sodium/ 3,000 MG Q8 07/10 1400 DC 07/12 Sulbactam Sodium IV 0526 Sodium Chloride 100 ML Atorvastatin Calcium 40 MG 1700 07/06 1700 AC 07/12 PO 1642 Chlorhexidine 5 ML BID 07/08 1356 AC 07/12 Gluconate PO 2023 Cholecalciferol 1,000 IU DAILY 07/06 1000 AC 07/12 PO 0949 Cyanocobalamin 1,000 MCG DAILY 07/06 1000 AC 07/12 PO 0950 Docusate Sodium 100 MG DAILY 07/12 1215 AC PO Enoxaparin Sodium 30 MG DAILY 07/13 1000 AC SC Guaifenesin 10 ML .STK-MED ONE 07/12 2014 DC PO 07/12 2016 Guaifenesin 10 ML .STK-MED ONE 07/12 1637 DC PO 07/12 1638 Guaifenesin 10 ML Q6H 07/05 2315 AC 07/13 PO 0515 Heparin Sodium 25,000 UNIT Q24H 07/09 1030 DC 07/11 (Porcine) IV 1939 Sodium Chloride 500 ML Ipratropium [place] 2.5 ML BID 07/12 2200 AC INH Ipratropium [place] 2.5 ML TID 07/06 1000 DC 07/12 INH 1623 Metoprolol Tartrate 25 MG BID 07/09 0530 AC 07/12 PO 2022 Olanzapine 2.5 MG Q8P PRN 07/05 2330 AC 07/12 PO 2022 Patient Medication 1 ED .STK-MED ONE 07/12 1357 DC Teaching ED 07/12 1358 Phosphate 250 MG PC AND AT BEDTIME 07/09 1300 AC 07/12 PO 2022 Polyethylene Glycol 17 GM DAILY 07/12 1211 AC PO Senna/Docusate Sodium 2 TAB DAILY 07/12 1211 AC PO Sodium Phosphate 1 UNIT ONCE ONE 07/12 1215 CAN VA 07/12 1216 Tamsulosin HCl 0.4 MG DAILY 07/09 1653 AC 07/12 PO 0949 Trazodone HCl 50 MG AT BEDTIME 07/12 2345 DC PO Trazodone HCl 50 MG ONCE ONE 07/12 2345 DC 07/13 PO 07/12 2346 0029 Last 24 Hrs of Lab/Wilner Results Last 24 Hrs of Labs/Mics: Laboratory Tests 07/13/16 0530: CBC w Diff NO MAN DIFF REQ, RBC 2.62 L, MCV 98.5 H, MCH 33.2 H, RDW 15.5 H, MPV 8.4, Gran % 58.5, Lymphocytes % 20.8, Monocytes % 7.4, Eosinophils % 13.0 H , Basophils % 0.3, Absolute Granulocytes 3.6, Absolute Lymphocytes 1.3, Absolute Monocytes 0.5, Absolute Eosinophils 0.8, Absolute Basophils 0, PUBS MCHC 33.7 07/12/16 1400: APTT Cancelled Assessment/Plan Assessment: Assessment- 1. HCAP 2. Delirium likely 2/2 infection 3. New onset afib 4. Recent hip fx s/p ORIF 5. HLD 6. HTN Plan- Blood culture grew Proteus, Currently on Augmentin, aspiration precautions- puree and honey thich diet, keep head of the bed elevated, chlorahexadine swab twice a day Sat 93% on RA On Zyprexa q8p for delirium On metoprolol and 30 sc on lovenox, not a candidate for full AC due to hx of falls Surgical site healing well, continue analgesics and stool softeners Continue statin Problem List: 1. Status post hip surgery 2. Atrial fibrillation 3. Altered mental status 4. Pneumonia 5. Delirium Pain Ratin Pain Location: none Pain Goal: Remain pain free Pain Plan: per emr Tomorrow's Labs & Rationales: per emr
[2016-07-13 08:13] VITALS: BP 126/80
--- NOTE | 2016-07-13 10:02 | PN- Pulmonary ---
Subjective HPI/Critical Care Issues: Awake and confused,could not provide hx Review of Systems Constitutional: Reports: see HPI. Objective Current Medications: Current Medications Sig/Chirag Start time Last Medication Dose Route Stop Time Status Admin Acetaminophen 650 MG .STK-MED ONE 07/12 2015 DC PO 07/12 2017 Acetaminophen 650 MG .STK-MED ONE 07/12 1252 DC PO 07/12 1253 Acetaminophen 1,000 MG Q6-PRN PRN 07/06 2315 AC 07/11 IV 0847 Acetaminophen 650 MG Q6P PRN 07/05 2200 AC 07/12 PO 2022 Albuterol Sulfate 3 ML BID 07/12 2200 AC 07/13 INH 0526 Albuterol Sulfate 3 ML TID 07/06 1000 DC 07/12 INH 1623 Amoxicillin 500 MG Q8 07/12 0848 AC 07/13 PO 0515 Atorvastatin Calcium 40 MG 1700 07/06 1700 AC 07/12 PO 1642 Chlorhexidine 5 ML BID 07/08 1356 AC 07/12 Gluconate PO 2023 Cholecalciferol 1,000 IU DAILY 07/06 1000 AC 07/12 PO 0949 Cyanocobalamin 1,000 MCG DAILY 07/06 1000 AC 07/12 PO 0950 Docusate Sodium 100 MG DAILY 07/12 1215 AC PO Enoxaparin Sodium 30 MG DAILY 07/13 1000 AC SC Guaifenesin 10 ML .STK-MED ONE 07/12 2014 DC PO 07/12 2016 Guaifenesin 10 ML .STK-MED ONE 07/12 1637 DC PO 07/12 1638 Guaifenesin 10 ML Q6H 07/05 2315 AC 07/13 PO 0515 Heparin Sodium 25,000 UNIT Q24H 07/09 1030 DC 07/11 (Porcine) IV 1939 Sodium Chloride 500 ML Ipratropium [place] 2.5 ML BID 07/12 2200 AC INH Ipratropium [place] 2.5 ML TID 07/06 1000 DC 07/12 INH 1623 Metoprolol Tartrate 25 MG BID 07/09 0530 AC 07/12 PO 2022 Olanzapine 2.5 MG Q8P PRN 07/05 2330 AC 07/12 PO 2022 Patient Medication 1 ED .STK-MED ONE 07/12 1357 DC Teaching ED 07/12 1358 Phosphate 250 MG PC AND AT BEDTIME 07/09 1300 AC 07/12 PO 2022 Polyethylene Glycol 17 GM DAILY 07/12 1211 AC PO Senna/Docusate Sodium 2 TAB DAILY 07/12 1211 AC PO Sodium Phosphate 1 UNIT ONCE ONE 07/12 1215 CAN RI 07/12 1216 Tamsulosin HCl 0.4 MG DAILY 07/09 1653 AC 07/12 PO 0949 Trazodone HCl 50 MG .STK-MED ONE 07/13 0025 DC PO 07/13 0026 Trazodone HCl 50 MG AT BEDTIME 07/12 2344 DC PO Trazodone HCl 50 MG ONCE ONE 07/12 2345 DC 07/13 PO 07/12 234 0029 Vital Signs & I&O Last 24 Hrs of Vitals and I&O: Vital Signs Date Time Temp Pulse Resp B/P Pulse O2 O2 Flow FiO2 Ox Delivery Rate 07/13 08 97.4 91 20 126/80 93 Room Air 07/13 0548 93 Room Air 07/13 0000 95 Room Air 07/12 234 97.4 84 20 112/72 95 Room Air 07/12 2022 102 128/76 07/12 1627 96 Room Air 07/12 1600 Room Air 07/12 1550 98.6 104 20 106/68 92 Room Air Intake & Output 07/13 1600 07/13 0800 07/13 0000 Intake Total 50 60 Output Total 150 Balance 50 -90 Intake, Oral 50 60 Output, Urine 150 Laboratory Tests 07/13 07/12 0530 1400 Coagulation APTT Cancelled Hematology CBC w Diff NO MAN DIFF REQ WBC (4.8 - 10.8 /CUMM) 6.1 RBC (4.70 - 6.10 /CUMM) 2.62 L Hgb (14.0 - 18.0 G/DL) 8.7 L Hct (42 - 52 %) 25.8 L MCV (80.0 - 94.0 FL) 98.5 H MCH (27.0 - 31.0 PG) 33.2 H RDW (11.5 - 14.5 %) 15.5 H Plt Count (130 - 400 /CUMM) 214 MPV (7.4 - 10.4 FL) 8.4 Gran % (42.2 - 75.2 %) 58.5 Lymphocytes % (20.5 - 51.1 %) 20.8 Monocytes % (1.7 - 9.3 %) 7.4 Eosinophils % (0 - 5 %) 13.0 H Basophils % (0.0 - 2.0 %) 0.3 Absolute Granulocytes (1.4 - 6.5 /CUMM) 3.6 Absolute Lymphocytes (1.2 - 3.4 /CUMM) 1.3 Absolute Monocytes (0.10 - 0.60 /CUMM) 0.5 Absolute Eosinophils (0.0 - 0.7 /CUMM) 0.8 Absolute Basophils (0.0 - 0.2 /CUMM) 0 PUBS MCHC (33.0 - 37.0 G/DL) 33.7 07/12 07/11 0200 1420 Chemistry Sodium (137 - 145 mmol/L) 140 Potassium (3.5 - 5.1 mmol/L) 4.2 Chloride (98 - 107 mmol/L) 110 H Carbon Dioxide (22 - 30 mmol/L) 25 Anion Gap (5 - 16) 5 BUN (9 - 20 mg/dL) 17 Creatinine (0.7 - 1.2 mg/dL) 1.2 Estimated GFR (>60 ml/min) 57 L Glucose (65 - 99 mg/dL) 100 H Calcium (8.4 - 10.2 mg/dL) 8.4 Phosphorus (2.5 - 4.5 mg/dL) 3.5 Magnesium (1.6 - 2.3 mg/dL) 1.9 Total Bilirubin (0.2 - 1.3 mg/dL) 0.9 AST (17 - 59 U/L) 39 ALT (21 - 72 U/L) 47 Albumin (3.5 - 5.0 g/dL) 2.4 L Coagulation APTT (25 - 37 SEC) 69 H 85 H Hematology CBC w Diff NO MAN DIFF REQ WBC (4.8 - 10.8 /CUMM) 7.0 RBC (4.70 - 6.10 /CUMM) 2.65 L Hgb (14.0 - 18.0 G/DL) 8.8 L Hct (42 - 52 %) 26.1 L MCV (80.0 - 94.0 FL) 98.3 H MCH (27.0 - 31.0 PG) 33.3 H RDW (11.5 - 14.5 %) 15.0 H Plt Count (130 - 400 /CUMM) 220 MPV (7.4 - 10.4 FL) 8.5 Gran % (42.2 - 75.2 %) 58.9 Lymphocytes % (20.5 - 51.1 %) 24.3 Monocytes % (1.7 - 9.3 %) 7.4 Eosinophils % (0 - 5 %) 9.0 H Basophils % (0.0 - 2.0 %) 0.4 Absolute Granulocytes (1.4 - 6.5 /CUMM) 4.1 Absolute Lymphocytes (1.2 - 3.4 /CUMM) 1.7 Absolute Monocytes (0.10 - 0.60 /CUMM) 0.5 Absolute Eosinophils (0.0 - 0.7 /CUMM) 0.6 Absolute Basophils (0.0 - 0.2 /CUMM) 0 PUBS MCHC (33.0 - 37.0 G/DL) 33.9 Impression/Plan Impression/Plan Impression/Plan: Physical Exam General Appearance delirious not oriented Skin No Rashes, No Breakdown HEENT Atraumatic, PERRLA Neck Supple Cardiovascular Regular Rate, Normal S1, Normal S2, No Murmurs Lungs Normal Air Movement, bilateral rhonchi present, crackles both bases Abdomen Normal Bowel Sounds, Soft, No Tenderness Neurological Sensation Intact Extremities No Clubbing, No Cyanosis, unilateral edema present on the right leg Vascular Pulses Symmetrical CT CHEST ABD AND PELVIS IMPRESSION: 1. Small bilateral pleural effusions with overlying minimal dependent compressive atelectasis. Patchy groundglass opacities along the periphery of the right upper and right middle lobes. This could reflect a mild acute or developing infectious or inflammatory process. 2. No acute findings within the abdomen or pelvis. No organizing intra-abdominal or pelvic fluid collections. The gallbladder is physiologically distended but otherwise unremarkable. There are no visible radiopaque gallstones. 3. A moderate amount of retained stool throughout the colon, indicative of constipation. Feculent material is also identified within loops of small bowel, which is indicative of delayed intestinal transit. 4. Mechanical hardware within the right hip and proximal right femur, related to recent orthopedic surgery. 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 No visible organizing fluid collections to suggest abscess. No immediate mechanical hardware complications. 07/10 IMPRESSION This is a gentleman with chronic kidney disease, previous ischemic heart disease with previous IA, hyperlipidemia, peripheral vascular disease, previous AAA repair, who is on antiplatelet therapy for peripheral vascular disease, hypertension hyperlipidemia now here with a hip fracture s/p surg on 05/30, subsequently had delirium for very prolonged period due to multiple factors, previous urinary retention with UTI with previous urology evaluation, now comes in with * Significant delirium with worsening dementia, with proteus bacterimia prob due to urological origin. PT has rhodococci in the sputum with prob pna aswell but seems less likely * Sig constipation * New onset afib not a good candidate for fpc anticoag * Previous urinary retention on Flomax with previous post void residue being high, was followed by urology, now with holden. 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 Patient was on antiplatelet therapy before and this needs to be started when he is able to take po. When he is off lovenox as he is high risk for bleeding * IHD with cardiomyopathy * Hypertension and hyperlipidemia stable, Ischemic heart disease hypertension stable, Previous aaa * Sig djd cspine REC COnt abx per ID Aggresively rx constipation, No BM documented and make sure pt does have a good bm if possible with enema today Miralax daily Senna and docusate daily Pt does have urinary retention when he is constipated and this needs to be rxd Remove holden after bm Chlorhexide mouth wash bid daily Keep hob up Olanzapine only for severe delirium, if not hold it Try to avoid trazadone. Ok with one dose of benzo if he needs it if antipsycotic does not help EKg today to eval qtc Check magnesium today from ams blood and then replace to keep it more than 4 Nebs prn only from now on COnt flomax Watch hct and check stool for heme IF heme positive start po ppi Prog poor pt is dnr and dni Discussed with family in detail multiple times before
--- NOTE | 2016-07-13 11:05 | PN- Infect Dx ---
Subjective Subjective: Afebrile. He complains of pain all over when he moves. Objective Last 24 Hrs of Vital Signs/I&O Vital Signs Date Time Temp Pulse Resp B/P Pulse O2 O2 Flow FiO2 Ox Delivery Rate 07/13 08 97.4 91 20 126/80 93 Room Air 07/13 0548 93 Room Air 07/13 0000 95 Room Air 07/12 2346 97.4 84 20 112/72 95 Room Air 07/12 2023 102 128/76 07/12 1627 96 Room Air 07/12 1600 Room Air 07/12 1550 98.6 104 20 106/68 92 Room Air Intake & Output 07/13 1600 07/13 0800 07/13 0000 Intake Total 50 60 Output Total 150 Balance 50 -90 Intake, Oral 50 60 Output, Urine 150 Physical Exam Other Physical Findings: He remains lethargic, minimally responsive Lungs clear anteriorly Heart regular rhythm with no murmur Abdomen soft, no obvious tenderness, positive bowel sounds Extremities no cyanosis, clubbing or edema; PICC in the right upper extremity with no inflammation at the site Results Last 24 Hours of Lab Results: Laboratory Tests 07/13 07/12 0530 1400 Coagulation APTT Cancelled Hematology CBC w Diff NO MAN DIFF REQ WBC (4.8 - 10.8 /CUMM) 6.1 RBC (4.70 - 6.10 /CUMM) 2.62 L Hgb (14.0 - 18.0 G/DL) 8.7 L Hct (42 - 52 %) 25.8 L MCV (80.0 - 94.0 FL) 98.5 H MCH (27.0 - 31.0 PG) 33.2 H RDW (11.5 - 14.5 %) 15.5 H Plt Count (130 - 400 /CUMM) 214 MPV (7.4 - 10.4 FL) 8.4 Gran % (42.2 - 75.2 %) 58.5 Lymphocytes % (20.5 - 51.1 %) 20.8 Monocytes % (1.7 - 9.3 %) 7.4 Eosinophils % (0 - 5 %) 13.0 H Basophils % (0.0 - 2.0 %) 0.3 Absolute Granulocytes (1.4 - 6.5 /CUMM) 3.6 Absolute Lymphocytes (1.2 - 3.4 /CUMM) 1.3 Absolute Monocytes (0.10 - 0.60 /CUMM) 0.5 Absolute Eosinophils (0.0 - 0.7 /CUMM) 0.8 Absolute Basophils (0.0 - 0.2 /CUMM) 0 PUBS MCHC (33.0 - 37.0 G/DL) 33.7 Last 24 Hours of Wilner Results: Blood cultures July 09 negative Assessment/Plan Impression: Stable with temperatures and white blood cell count remaining normal now on Amoxicillin Day 8 of treatment for Proteus sepsis, possibly secondary to a urinary tract infection versus a pulmonary process. Suggestion: 1. Would bladder scan to rule out urinary retention (status post Granado removal) given his history 2. Continue Amoxicillin to complete a 14 day course of antibiotics
--- NOTE | 2016-07-13 11:54 | PN- Cardiology ---
Subjective Subjective: The patient is awake, alert, confused The events of the last 24 hours as well as telemetry were reviewed. Review of Systems: Unable to fully assess secondary to underlying mental state Objective Vital Signs and I&Os Vital Signs Date Time Temp Pulse Resp B/P Pulse O2 O2 Flow FiO2 Ox Delivery Rate 07/13 0813 97.4 91 20 126/80 93 Room Air 07/13 0548 93 Room Air 07/13 0000 95 Room Air 07/12 2346 97.4 84 20 112/72 95 Room Air 07/12 202 102 128/76 07/12 1627 96 Room Air 07/12 1600 Room Air 07/12 1550 98.6 104 20 106/68 92 Room Air Intake & Output 07/13 0800 07/13 0000 07/12 1600 07/12 0800 07/12 0000 Intake Total 50 60 400 214 390 Output Total 150 250 600 Balance 50 -90 150 -386 390 Intake, IV 160 214 150 Intake, Oral 50 60 240 0 240 Output, Urine 150 250 600 Physical Exam: General: Nontoxic, no apparent distress. HEENT: Sclera and conjunctiva within normal limits, without xanthelasmas. Neck: Carotids 2+ without bruits. Respiratory: Scattered rhonchi, air movement is good, without accessory respiratory muscle use. Heart: Irregularly irregular rate and rhythm, 2-6 systolic ejection murmur left sternal border, without JVD. Abdomen: Soft, nontender, no masses, normoactive bowel sounds. Extremities: Without clubbing, cyanosis, without edema. Neuro: Nonfocal exam, strength, 5 out of 5 Skin: Within normal limits without lesions. Psych: Mood and affect: Confused Current Medications: Current Medications Sig/Chirag Start time Last Medication Dose Route Stop Time Status Admin Acetaminophen 650 MG .STK-MED ONE 07/12 2016 DC PO 07/12 2017 Acetaminophen 650 MG .STK-MED ONE 07/12 1252 DC PO 07/12 1253 Acetaminophen 1,000 MG Q6-PRN PRN 07/06 2315 AC 07/11 IV 0847 Acetaminophen 650 MG Q6P PRN 07/05 2199 AC 07/12 PO 2022 Albuterol Sulfate 3 ML BID PRN 07/13 1008 AC INH Albuterol Sulfate 3 ML BID 07/12 2200 DC 07/13 INH 0526 Albuterol Sulfate 3 ML TID 07/06 1000 DC 07/12 INH 1623 Amoxicillin 500 MG Q8 07/12 0848 AC 07/13 PO 0515 Atorvastatin Calcium 40 MG 1700 07/06 1700 AC 07/12 PO 1642 Chlorhexidine 5 ML BID 07/08 1356 AC 07/12 Gluconate PO 202 Cholecalciferol 1,000 IU DAILY 07/06 1000 AC 07/12 PO 0949 Cyanocobalamin 1,000 MCG DAILY 07/06 1000 AC 07/13 PO 1134 Docusate Sodium 100 MG DAILY 07/12 1215 AC PO Enoxaparin Sodium 30 MG DAILY 07/13 1000 AC SC Guaifenesin 10 ML .STK-MED ONE 07/12 2014 DC PO 07/12 2016 Guaifenesin 10 ML .STK-MED ONE 07/12 1637 DC PO 07/12 1638 Guaifenesin 10 ML Q6H 07/05 2315 AC 07/13 PO 0515 Heparin Sodium 25,000 UNIT Q24H 07/09 1030 DC 07/11 (Porcine) IV 1939 Sodium Chloride 500 ML Ipratropium [place] 2.5 ML BID PRN 07/13 1008 AC INH Ipratropium [place] 2.5 ML BID 07/12 2200 DC INH Ipratropium [place] 2.5 ML TID 07/06 1000 DC 07/12 INH 1623 Metoprolol Tartrate 25 MG BID 07/09 0530 AC 07/12 PO 2022 Olanzapine 2.5 MG Q8P PRN 07/05 2330 AC 07/12 PO 2022 Patient Medication 1 ED .STK-MED ONE 07/12 1357 DC Teaching ED 07/12 1358 Phosphate 250 MG PC AND AT BEDTIME 07/09 1300 AC 07/12 PO 2023 Polyethylene Glycol 17 GM DAILY 07/12 1211 AC PO Senna/Docusate Sodium 2 TAB DAILY 07/12 1211 AC PO Sodium Phosphate 1 UNIT ONCE ONE 07/12 1215 CAN NV 07/12 1216 Tamsulosin HCl 0.4 MG DAILY 07/09 1653 AC 07/12 PO 0949 Trazodone HCl 50 MG .STK-MED ONE 07/13 0025 DC PO 07/13 0026 Trazodone HCl 50 MG AT BEDTIME 07/12 2345 DC PO Trazodone HCl 50 MG ONCE ONE 07/12 2345 DC 07/13 PO 07/12 2346 0029 Results Last 48 Hrs of Labs/Mics: Laboratory Tests 07/13/16 0530: CBC w Diff NO MAN DIFF REQ, RBC 2.62 L, MCV 98.5 H, MCH 33.2 H, RDW 15.5 H, MPV 8.4, Gran % 58.5, Lymphocytes % 20.8, Monocytes % 7.4, Eosinophils % 13.0 H , Basophils % 0.3, Absolute Granulocytes 3.6, Absolute Lymphocytes 1.3, Absolute Monocytes 0.5, Absolute Eosinophils 0.8, Absolute Basophils 0, PUBS MCHC 33.7 07/12/16 1400: APTT Cancelled 07/12/16 0200: Anion Gap 5, Estimated GFR 57 L, Glucose 100 H, Calcium 8.4, Phosphorus 3.5, Magnesium 1.9, Total Bilirubin 0.9, AST 39, ALT 47, Albumin 2.4 L, APTT 69 H, CBC w Diff NO MAN DIFF REQ, RBC 2.65 L, MCV 98.3 H, MCH 33.3 H, RDW 15.0 H, MPV 8.5, Gran % 58.9, Lymphocytes % 24.3, Monocytes % 7.4, Eosinophils % 9.0 H, Basophils % 0.4, Absolute Granulocytes 4.1, Absolute Lymphocytes 1.7, Absolute Monocytes 0.5, Absolute Eosinophils 0.6, Absolute Basophils 0, PUBS MCHC 33.9 07/11/16 1420: APTT 85 H Assessment/Plan Assessment/Plan 1. AMS with sepsis 2. New onset atrial fibrillation 3. Reported hx of CAD/[place]/PVD/AAA repair/?TIA hx 4. HTN/HLD 5. s/p recent mechanical fall with hip fx and ORIF, recurrent falls 6. CKD 7. Bifascicular block, previously noted We will continue treatment for atrial fibrillation with heart rate control. Metoprolol may be increased as tolerated by blood pressure. Given the patient's history of falls, as well as his current anemia, he is a suboptimal candidate for long-term anticoagulation. The patient has a mild cardiomyopathy with an LVEF of 40%. We will attempt to add an MAURICE inhibitor or angiotensin receptor daija to his regimen. Continue telemetry? No
--- NOTE | 2016-07-13 12:26 | NUR ---
SPEECH THERAPY: ATTEMPTED TO SEE PT DURING LUNCH. PT RESISTANT, KEPT EYES CLOSED AND SAYING "I DON'T WANT TO EAT UNTIL THEY LET ME OUT OF HERE!" ATTEMPTED TO OFFER TEASPOON OF PUREE WHICH PT SUBSEQUENTLY EXPECTORATED. PT DOES NOT APPEAR TO BE ABLE TO TAKE IN ADEQUATE AMOUNT OF PO GIVEN CURRENT MENTAL STATUS. D/W RN WHO CONFIRMS SAME BEHAVIORS AT BREAKFAST. T/C PLACED TO .
--- NOTE | 2016-07-13 13:05 | NUR ---
NURSING NOTE PT REFUSED MORNING MEDS, CRUSHED IN APPLESAUCE AND ATTEMPED TO DELIVER, HOWEVER, PT WOULD NOT ALLOW ME TO ADMINISTER. DR. ALEXANDER MADE AWARE. DR. VILLAGOMEZ ORDERED AN ENEMA, PT REFUSED. PT IS HOWEVER CONFUSED, WILL TRY AGAIN IN A LITTLE.
[2016-07-13 15:30] VITALS: BP 118/80
[2016-07-14 00:28] VITALS: BP 124/72
[2016-07-14 05:54] LABS: ABSOLUTE BASOPHIL COUNT 0 /CUMM (0.0-0.2); ABSOLUTE EOSINOPHIL COUNT 0.8 /CUMM (0.0-0.7); ABSOLUTE GRANULOCYTE CT 4.2 /CUMM (1.4-6.5); ABSOLUTE LYMPH COUNT 1.4 /CUMM (1.2-3.4); ABSOLUTE MONOCYTE COUNT 0.5 /CUMM (0.10-0.60); BASOPHIL % 0.3 % (0.0-2.0); GRANULOCYTE % 61.8 % (42.2-75.2); HEMATOCRIT 26.6 % (42-52); MEAN CORPUSCULAR HGB 33.5 PG (27.0-31.0); MEAN CORPUSCULAR HGB CONC 33.6 G/DL (33.0-37.0); MEAN CORPUSCULAR VOLUME 99.4 FL (80.0-94.0); MEAN PLATELET VOLUME 8.5 FL (7.4-10.4); PLATELET COUNT 226 /CUMM (130-400); RBC DISTRIBUTION WIDTH 15.7 % (11.5-14.5); RED BLOOD CELL CT 2.68 /CUMM (4.70-6.10); WHITE BLOOD CELL COUNT 6.9 /CUMM (4.8-10.8)
--- NOTE | 2016-07-14 07:00 | PN- Housestaff ---
Subjective Follow-up For: Penumonia Resp failure Acute delirium A fib, new onset Complaints: no complaints Tele-Events Since Last Visit: Tele d/c since yesterday per cardiology Subjective: Awake and confused,could not provide hx Review of Systems Constitutional: Reports: see HPI. Objective Last 24 Hrs of Vital Signs/I&O Vital Signs Date Time Temp Pulse Resp B/P Pulse O2 O2 Flow FiO2 Ox Delivery Rate 07/14 0028 98.0 69 20 124/72 91 Room Air 07/14 0000 Room Air 07/13 205 92 Room Air Room Air 07/13 1530 98.4 105 20 118/80 94 Room Air 07/13 1407 Nasal 1.0L Cannula 07/13 123 95 Room Air 07/13 0813 97.4 91 20 126/80 93 Room Air Intake & Output 07/14 0800 07/14 0000 07/13 1600 Intake Total 300 240 Output Total 100 Balance 300 140 Intake, IV 0 Intake, Oral 300 240 Number 0 Bowel Movements Output, Urine 100 Physical Exam General Appearance: Alert, Cooperative, Mild Distress Skin: No Rashes, No Breakdown HEENT: Atraumatic, PERRLA Cardiovascular: Regular Rate, Normal S1, Normal S2 Lungs: b/l ronchii Abdomen: Normal Bowel Sounds, Soft, No Tenderness Extremities: Right upper arm PICC line in place, no swelling or errythema Current Medications: Current Medications Sig/Chirag Start time Last Medication Dose Route Stop Time Status Admin Acetaminophen 1,000 MG Q6-PRN PRN 07/06 2315 AC 07/11 IV 0847 Acetaminophen 650 MG Q6P PRN 07/05 2199 AC 07/12 PO 2022 Albuterol Sulfate 3 ML BID PRN 07/13 1008 AC 07/13 INH 1233 Albuterol Sulfate 3 ML BID 07/12 2200 DC 07/13 INH 0526 Amoxicillin 500 MG Q8 07/13 2230 AC 07/14 PO 0538 Amoxicillin 500 MG Q8 07/12 0848 DC 07/13 PO 1835 Atorvastatin Calcium 40 MG 1700 07/06 1700 AC 07/13 PO 1902 Chlorhexidine 5 ML BID 07/08 1356 AC 07/12 Gluconate PO 202 Cholecalciferol 1,000 IU DAILY 07/06 1000 AC 07/12 PO 0949 Cyanocobalamin 1,000 MCG DAILY 07/06 1000 AC 07/13 PO 1134 Docusate Sodium 100 MG DAILY 07/12 1215 AC 07/13 PO 1134 Enoxaparin Sodium 30 MG DAILY 07/13 1000 AC SC Guaifenesin 10 ML .STK-MED ONE 07/13 1135 DC PO 07/13 1136 Guaifenesin 10 ML Q6H 07/05 2315 AC 07/13 PO 2315 Ipratropium [place] 2.5 ML BID PRN 07/13 1008 AC 07/13 INH 1233 Ipratropium [place] 2.5 ML BID 07/12 2200 DC INH Metoprolol Tartrate 25 MG BID 07/09 0530 AC 07/13 PO 2315 Olanzapine 2.5 MG Q8P PRN 07/05 2330 AC 07/12 PO 2023 Phosphate 250 MG PC AND AT BEDTIME 07/09 1300 AC 07/13 PO 1902 Polyethylene Glycol 17 GM DAILY 07/12 1211 AC PO Senna/Docusate Sodium 2 TAB DAILY 07/12 1211 AC PO Tamsulosin HCl 0.4 MG DAILY 07/09 1653 AC 07/13 PO 1135 Last 24 Hrs of Lab/Wilner Results Last 24 Hrs of Labs/Mics: Laboratory Tests 07/14/16 0520: Anion Gap 5, Estimated GFR 44 L, BUN/Creatinine Ratio 10.7, CBC w Diff NO MAN DIFF REQ, RBC 2.68 L, MCV 99.4 H, MCH 33.5 H, RDW 15.7 H, MPV 8.5, Gran % 61.8, Lymphocytes % 20.0 L, Monocytes % 6.9, Eosinophils % 11.0 H, Basophils % 0.3, Absolute Granulocytes 4.2, Absolute Lymphocytes 1.4, Absolute Monocytes 0.5 , Absolute Eosinophils 0.8, Absolute Basophils 0, PUBS MCHC 33.6 Assessment/Plan Assessment: Assessment- 1. HCAP 2. Delirium likely 2/2 infection 3. New onset afib 4. Recent hip fx s/p ORIF 5. HLD 6. HTN 7. 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, likely 2/2 decreased PO intake Plan- Blood culture grew Proteus, Currently on Augmentin, aspiration precautions- puree and honey thich diet, keep head of the bed elevated, chlorahexadine swab twice a day Ate 75% of his dinner last night Sat 93% on RA On Zyprexa q8p for delirium, he has not gotten any since July 12 On metoprolol and 30 sc on lovenox, not a candidate for full AC due to hx of falls Surgical site healing well, continue analgesics and stool softeners Continue statin It should be noted, that the patient adamantly refused getting tapwater enema yesterday despite multiple tries from nursing staff Will give NS at 50 c/ hr; half a liter Problem List: 1. Atrial fibrillation 2. Status post hip surgery 3. Altered mental status 4. Pneumonia Pain Ratin Pain Location: none Pain Goal: Remain pain free Pain Plan: per emr Tomorrow's Labs & Rationales: per emr
[2016-07-14 08:41] VITALS: BP 120/82
--- NOTE | 2016-07-14 10:31 | PN- Pulmonary ---
Subjective HPI/Critical Care Issues: DOing better More awake Does provide history but not oriented to place Fatigue No abd pain or discomfort Objective Current Medications: Current Medications Sig/Chirag Start time Last Medication Dose Route Stop Time Status Admin Acetaminophen 1,000 MG Q6-PRN PRN 07/06 2315 AC 07/11 IV 0847 Acetaminophen 650 MG Q6P PRN 07/05 2200 AC 07/12 PO 2023 Albuterol Sulfate 3 ML BID PRN 07/13 1008 AC 07/13 INH 1233 Amoxicillin 500 MG Q8 07/13 2230 AC 07/14 PO 0538 Amoxicillin 500 MG Q8 07/12 0848 DC 07/13 PO 1835 Atorvastatin Calcium 40 MG 1700 07/06 1700 AC 07/13 PO 1902 Chlorhexidine 5 ML BID 07/08 1356 AC 07/14 Gluconate PO 0837 Cholecalciferol 1,000 IU DAILY 07/06 1000 AC 07/14 PO 0837 Cyanocobalamin 1,000 MCG DAILY 07/06 1000 AC 07/14 PO 0837 Docusate Sodium 100 MG DAILY 07/12 1215 AC 07/14 PO 0837 Enoxaparin Sodium 30 MG DAILY 07/13 1000 AC 07/14 SC 0838 Guaifenesin 10 ML .STK-MED ONE 07/13 1135 DC PO 07/13 1136 Guaifenesin 10 ML Q6H 07/05 2315 AC 07/13 PO 2315 Ipratropium [place] 2.5 ML BID PRN 07/13 1008 AC 07/13 INH 1233 Metoprolol Tartrate 25 MG BID 07/09 0530 AC 07/14 PO 0836 Olanzapine 2.5 MG Q8P PRN 07/05 2330 AC 07/12 PO 2023 Phosphate 250 MG PC AND AT BEDTIME 07/09 1300 AC 07/14 PO 0837 Polyethylene Glycol 17 GM DAILY 07/12 1211 AC 07/14 PO 0838 Senna/Docusate Sodium 2 TAB DAILY 07/12 1211 AC 07/14 PO 0837 Sodium Chloride 500 ML BOLUS ONE 07/14 0715 AC 07/14 IV 07/14 1714 0847 Tamsulosin HCl 0.4 MG DAILY 07/09 1653 AC 07/14 PO 0836 Laboratory Tests 07/14 07/13 0520 0530 Chemistry Sodium (137 - 145 mmol/L) 142 Potassium (3.5 - 5.1 mmol/L) 5.1 Chloride (98 - 107 mmol/L) 111 H Carbon Dioxide (22 - 30 mmol/L) 26 Anion Gap (5 - 16) 5 BUN (9 - 20 mg/dL) 16 Creatinine (0.7 - 1.2 mg/dL) 1.5 H Estimated GFR (>60 ml/min) 44 L BUN/Creatinine Ratio (7 - 25 %) 10.7 Hematology CBC w Diff NO MAN DIFF REQ NO MAN DIFF REQ WBC (4.8 - 10.8 /CUMM) 6.9 6.1 RBC (4.70 - 6.10 /CUMM) 2.68 L 2.62 L Hgb (14.0 - 18.0 G/DL) 9.0 L 8.7 L Hct (42 - 52 %) 26.6 L 25.8 L MCV (80.0 - 94.0 FL) 99.4 H 98.5 H MCH (27.0 - 31.0 PG) 33.5 H 33.2 H RDW (11.5 - 14.5 %) 15.7 H 15.5 H Plt Count (130 - 400 /CUMM) 226 214 MPV (7.4 - 10.4 FL) 8.5 8.4 Gran % (42.2 - 75.2 %) 61.8 58.5 Lymphocytes % (20.5 - 51.1 %) 20.0 L 20.8 Monocytes % (1.7 - 9.3 %) 6.9 7.4 Eosinophils % (0 - 5 %) 11.0 H 13.0 H Basophils % (0.0 - 2.0 %) 0.3 0.3 Absolute Granulocytes (1.4 - 6.5 /CUMM) 4.2 3.6 Absolute Lymphocytes (1.2 - 3.4 /CUMM) 1.4 1.3 Absolute Monocytes (0.10 - 0.60 /CUMM) 0.5 0.5 Absolute Eosinophils (0.0 - 0.7 /CUMM) 0.8 0.8 Absolute Basophils (0.0 - 0.2 /CUMM) 0 0 PUBS MCHC (33.0 - 37.0 G/DL) 33.6 33.7 07/12 1400 Coagulation APTT Cancelled Vital Signs & I&O Last 24 Hrs of Vitals and I&O: Vital Signs Date Time Temp Pulse Resp B/P Pulse O2 O2 Flow FiO2 Ox Delivery Rate 07/14 0841 98.2 67 20 120/82 93 Room Air 07/14 0836 69 124/72 07/14 0836 69 124/72 07/14 0028 98.0 69 20 124/72 91 Room Air 07/14 0000 Room Air 07/13 2055 92 Room Air Room Air 07/13 1530 98.4 105 20 118/80 94 Room Air 07/13 1407 Nasal 1.0L Cannula 07/13 1237 95 Room Air Intake & Output 07/14 1600 07/14 0800 07/14 0000 Intake Total 0 300 Output Total 350 Balance -350 300 Intake, IV 0 0 Intake, Oral 0 300 Number 0 0 Bowel Movements Output, Urine 350 Impression/Plan Impression/Plan Impression/Plan: Physical Exam General Appearance delirious not oriented Skin No Rashes, No Breakdown HEENT Atraumatic, PERRLA Neck Supple Cardiovascular Regular Rate, Normal S1, Normal S2, No Murmurs Lungs Normal Air Movement, bilateral rhonchi present, crackles both bases Abdomen Normal Bowel Sounds, Soft, No Tenderness Neurological Sensation Intact Extremities No Clubbing, No Cyanosis, unilateral edema present on the right leg Vascular Pulses Symmetrical CT CHEST ABD AND PELVIS IMPRESSION: 1. Small bilateral pleural effusions with overlying minimal dependent compressive atelectasis. Patchy groundglass opacities along the periphery of the right upper and right middle lobes. This could reflect a mild acute or developing infectious or inflammatory process. 2. No acute findings within the abdomen or pelvis. No organizing intra-abdominal or pelvic fluid collections. The gallbladder is physiologically distended but otherwise unremarkable. There are no visible radiopaque gallstones. 3. A moderate amount of retained stool throughout the colon, indicative of constipation. Feculent material is also identified within loops of small bowel, which is indicative of delayed intestinal transit. 4. Mechanical hardware within the right hip and proximal right femur, related to recent orthopedic surgery. Mild asymmetric hypertrophy of the musculature surrounding the right hip, most likely insurance account representative of minimal intramuscular hematoma. No visible organizing fluid collections to suggest abscess. No immediate mechanical hardware complications. 07/10 IMPRESSION This is a gentleman with chronic kidney disease, previous ischemic heart disease with previous [place], hyperlipidemia, peripheral vascular disease, previous AAA repair, who is on antiplatelet therapy for peripheral vascular disease, hypertension hyperlipidemia now here with a hip fracture s/p surg on 05/30, subsequently had delirium for very prolonged period due to multiple factors, previous urinary retention with UTI with previous urology evaluation, now comes in with * Significant delirium with worsening dementia, with proteus bacterimia due to urological origin. PT has rhodococci in the sputum with prob pna aswell but seems less likely * Sig constipation, but no clinical signs of abd distention, now on bowel regimen * New onset afib not a good candidate for skilled nursing anticoag * Previous urinary retention on Flomax with previous post void residue being high, was followed by urology * Previous QTC prolongation (with occasional use of atypical antipsycotics, this was used as a last resort family agreed to rx with these meds aswell as they wish more of symptomatic care) * Recent hip fracture, on and off constipation subsequently * Mild cognitive impairment with worsening mental status in the past few months, 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 Patient was on antiplatelet therapy before and this needs to be started when he is able to take po. When he is off lovenox as he is high risk for bleeding * IHD with cardiomyopathy * Hypertension and hyperlipidemia stable, Ischemic heart disease hypertension stable, Previous aaa * Sig djd cspine REC COnt abx per ID Aggresively rx constipation, Lactulose 30 cc today and cont all the current stool softners. IF No bm use a dulcolax today and if that fails attempt an enema Miralax daily Senna and docusate daily Check post void urine reisudal Chlorhexide mouth wash bid daily Keep hob up Olanzapine only for severe delirium, if not hold it Try to avoid trazadone. Ok with one dose of benzo if he needs it if antipsycotic does not help EKg today to eval qtc Start mag ox dialy 400 mg and hold for diarrhea Nebs prn only from now on COnt flomax Watch hct and check stool for heme IF heme positive start po ppi Prog poor pt is dnr and dni Discussed with family in detail multiple times before
--- NOTE | 2016-07-14 13:15 | NUR ---
SPEECH THERAPY: PER RN, PT TOLERATED CURRENT DIET OF PUREE/NECTAR THICK LIQUIDS FOR BREAKFAST WITH NO COUGHING/DIFFICULTIES. RN ALSO REPORTS PT W/ IMPROVED APPETITE IN COMPARISON TO YESTERDAY. ST CONTINUE TO FOLLOW FOR DIET TOLERANCE.
[2016-07-14 15:30] VITALS: BP 122/70
--- NOTE | 2016-07-14 16:43 | NUR ---
NURSING NOTE; PT VOIDED 125 ML. PVBS DONE SHOWING RANGE OF 20-40 ML.
[2016-07-15 00:03] VITALS: BP 120/68
--- NOTE | 2016-07-15 06:56 | PN- Housestaff ---
Subjective Follow-up For: Penumonia Resp failure Acute delirium A fib, new onset Complaints: no complaints Tele-Events Since Last Visit: Tele has been d/c for the past 2 days Subjective: Awake but confused. He did admit to me that he had a bowel movement this morning. Per nursing staff and was guaiac negative. Patient is not oriented to time or place. Review of Systems Constitutional: Reports: see HPI. Objective Last 24 Hrs of Vital Signs/I&O Vital Signs Date Time Temp Pulse Resp B/P Pulse O2 O2 Flow FiO2 Ox Delivery Rate 07/15 0003 98.2 70 16 120/68 94 Room Air 07/15 0000 Room Air 07/14 2103 72 128/66 07/14 1933 93 Room Air Room Air 07/14 1600 94 Room Air 07/14 1530 98.2 54 20 122/70 94 Room Air 07/14 0841 98.2 67 20 120/82 93 Room Air 07/14 0836 69 124/72 07/14 0836 69 124/72 Intake & Output 07/15 0800 07/15 0000 07/14 1600 Intake Total 350 760 880 Output Total 150 125 Balance 200 635 880 Intake, IV 0 400 400 Intake, Oral 350 360 480 Number 1 0 0 Bowel Movements Output, Urine 150 125 Physical Exam General Appearance: Alert, Cooperative, Not priented to time or place HEENT: Atraumatic, PERRLA, EOMI Cardiovascular: Regular Rate, Normal S1, Normal S2 Lungs: b/l ronchii, normal air entry Abdomen: Normal Bowel Sounds, Soft, No Tenderness Extremities: No Clubbing, No Cyanosis, Right upper extremity PICC line in place, no surrounding errythema Current Medications: Current Medications Sig/Chirag Start time Last Medication Dose Route Stop Time Status Admin Acetaminophen 650 MG .STK-MED ONE 07/14 2032 DC PO 07/14 2033 Acetaminophen 1,000 MG Q6-PRN PRN 07/06 2315 AC 07/11 IV 0847 Acetaminophen 650 MG Q6P PRN 07/05 220 AC 07/15 PO 0515 Albuterol Sulfate 3 ML BID PRN 07/13 1008 AC 07/14 INH 1050 Amoxicillin 500 MG Q8 07/13 2230 AC 07/15 PO 0515 Atorvastatin Calcium 40 MG 1700 07/06 1700 AC 07/14 PO 1734 Bisacodyl 10 MG ONCE PRN 07/14 1045 AC MI Chlorhexidine 5 ML BID 07/08 1356 AC 07/14 Gluconate PO 210 Cholecalciferol 1,000 IU DAILY 07/06 1000 AC 07/14 PO 0837 Cyanocobalamin 1,000 MCG DAILY 07/06 1000 AC 07/14 PO 0837 Docusate Sodium 100 MG DAILY 07/12 1215 AC 07/14 PO 0837 Enoxaparin Sodium 30 MG DAILY 07/13 1000 AC 07/14 SC 0838 Guaifenesin 10 ML .STK-MED ONE 07/14 2034 DC PO 07/14 203 Guaifenesin 10 ML .STK-MED ONE 07/14 1732 DC PO 07/14 173 Guaifenesin 10 ML .STK-MED ONE 07/14 1233 DC PO 07/14 1234 Guaifenesin 10 ML Q6H 07/05 2315 AC 07/15 PO 0515 Ipratropium [place] 2.5 ML BID PRN 07/13 1008 AC 07/14 INH 1050 Lactulose 20 GM ONCE ONE 07/14 1045 DC 07/14 PO 07/14 1046 1236 Magnesium Oxide 400 MG DAILY 07/14 1040 AC 07/14 PO 1236 Metoprolol Tartrate 25 MG BID 07/09 0530 AC 07/14 PO 2103 Olanzapine 2.5 MG Q8P PRN 07/05 2330 AC 07/12 PO 2023 Patient Medication 1 ED ONE ONE 07/14 1330 DC Teaching ED 07/14 1331 Phosphate 250 MG PC AND AT BEDTIME 07/09 1300 AC 07/14 PO 2103 Polyethylene Glycol 17 GM DAILY 07/12 1211 AC 07/14 PO 0838 Senna/Docusate Sodium 2 TAB DAILY 07/12 1211 AC 07/14 PO 0837 Sodium Chloride 500 ML BOLUS ONE 07/14 0715 DC 07/14 IV 07/14 1714 0847 Tamsulosin HCl 0.4 MG DAILY 07/09 1653 AC 07/14 PO 0836 Last 24 Hrs of Lab/Wilner Results Last 24 Hrs of Labs/Mics: Laboratory Tests 07/15/16 0500: Anion Gap 7, Estimated GFR 41 L, BUN/Creatinine Ratio 10.6, Magnesium 2.1 Assessment/Plan Assessment: Assessment- 1. HCAP 2. Delirium likely 2/2 infection 3. New onset afib 4. Recent hip fx s/p ORIF 5. HLD 6. HTN 7. 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, likely 2/2 decreased PO intake Plan- Blood culture grew Proteus, Currently on Augmentin PO day 10, aspiration precautions- puree and honey thich diet, keep head of the bed elevated, chlorahexadine swab twice a day Ate 50% of his lunch and dinner last night Sat 94% on RA Has not needed any Zyprexa since July 12 On metoprolol and 30 sc on lovenox, not a candidate for full AC due to hx of falls Surgical site healing well, continue analgesics Had 1 BM this morning, Guaiac negative He is incontinent of urine, PVR 20-40 Continue statin Will give NS at 50 c/ hr; half a liter again today given GAIL Problem List: 1. Atrial fibrillation 2. Status post hip surgery 3. Altered mental status 4. Pneumonia Pain Ratin Pain Location: none, pt unable to provide hx Pain Goal: Remain pain free Pain Plan: per emr Tomorrow's Labs & Rationales: bep
[2016-07-15 08:00] VITALS: BP 98/60
--- NOTE | 2016-07-15 10:44 | PN- Cardiology ---
Subjective Subjective: The patient is awake, alert, confused The events of the last 24 hours as well as telemetry were reviewed. Review of Systems: Unable to fully obtained due to patient's mental state Objective Vital Signs and I&Os Vital Signs Date Time Temp Pulse Resp B/P Pulse O2 O2 Flow FiO2 Ox Delivery Rate 07/15 1039 Nasal 1.0L Cannula 07/15 1022 Nasal 1.0L Cannula 07/15 08 97.7 78 20 98/60 92 Room Air 07/15 0003 98.2 70 16 120/68 94 Room Air 07/15 0000 Room Air 07/14 2103 72 128/66 07/14 1933 93 Room Air Room Air 07/14 1600 94 Room Air 07/14 1530 98.2 54 20 122/70 94 Room Air Intake & Output 07/15 1600 07/15 0800 07/15 0000 07/14 1600 07/14 0807/14 0000 Intake Total 350 760 880 0 300 Output Total 150 125 350 Balance 200 635 880 -350 300 Intake, IV 0 400 400 0 0 Intake, Oral 350 360 480 0 300 Number 1 0 0 0 0 Bowel Movements Output, Urine 150 125 350 Physical Exam: General: Nontoxic, no apparent distress, confused. HEENT: Sclera and conjunctiva within normal limits, without xanthelasmas. Neck: Carotids 2+ without bruits. Respiratory: Clear to auscultation, air movement is good, without accessory respiratory muscle use. Heart: Regular rate and rhythm, 2-6 systolic ejection murmur at left sternal border, without JVD. Abdomen: Soft, nontender, no masses, normoactive bowel sounds. Extremities: Without clubbing, cyanosis, without edema. Neuro: Nonfocal exam, strength, 5 out of 5, confused Skin: Within normal limits without lesions. Psych: Mood and affect: Unable to fully assess Current Medications: Current Medications Sig/Chirag Start time Last Medication Dose Route Stop Time Status Admin Acetaminophen 650 MG .STK-MED ONE 07/14 2032 DC PO 07/14 2033 Acetaminophen 1,000 MG Q6-PRN PRN 07/06 2315 AC 07/11 IV 0847 Acetaminophen 650 MG Q6P PRN 07/05 2200 AC 07/15 PO 0515 Albuterol Sulfate 3 ML BID PRN 07/13 1008 AC 07/14 INH 1050 Amoxicillin 500 MG Q8 07/13 2230 AC 07/15 PO 0515 Atorvastatin Calcium 40 MG 1700 07/06 1700 AC 07/14 PO 1734 Bisacodyl 10 MG ONCE PRN 07/14 1045 AC MA Chlorhexidine 5 ML BID 07/08 1356 AC 07/14 Gluconate PO 2107 Cholecalciferol 1,000 IU DAILY 07/06 1000 AC 07/14 PO 0837 Cyanocobalamin 1,000 MCG DAILY 07/06 1000 AC 07/14 PO 0837 Dextrose/Sodium 500 ML ONCE ONE 07/15 0700 AC 07/15 Chloride IV 07/15 1659 1012 Docusate Sodium 100 MG DAILY 07/12 1215 AC 07/14 PO 0837 Enoxaparin Sodium 30 MG DAILY 07/13 1000 AC 07/14 SC 0838 Guaifenesin 10 ML .STK-MED ONE 07/14 2034 DC PO 07/14 203 Guaifenesin 10 ML .STK-MED ONE 07/14 1732 DC PO 07/14 1733 Guaifenesin 10 ML .STK-MED ONE 07/14 1233 DC PO 07/14 1234 Guaifenesin 10 ML Q6H 07/05 2315 AC 07/15 PO 0515 Ipratropium [place] 2.5 ML BID PRN 07/13 1008 AC 07/14 INH 1050 Lactulose 20 GM ONCE ONE 07/14 1045 DC 07/14 PO 07/14 1046 1236 Magnesium Oxide 400 MG DAILY 07/14 1040 AC 07/14 PO 1236 Metoprolol Tartrate 25 MG BID 07/09 0530 AC 07/14 PO 2103 Olanzapine 2.5 MG Q8P PRN 07/05 2330 AC 07/12 PO 2023 Patient Medication 1 ED ONE ONE 07/14 1330 DC Teaching ED 07/14 1331 Phosphate 250 MG PC AND AT BEDTIME 07/09 1300 AC 07/15 PO 0813 Polyethylene Glycol 17 GM DAILY 07/12 1211 AC 07/14 PO 0838 Senna/Docusate Sodium 2 TAB DAILY 07/12 1211 AC 07/14 PO 0837 Sodium Chloride 500 ML BOLUS ONE 07/14 0715 DC 07/14 IV 07/14 1714 0847 Tamsulosin HCl 0.4 MG DAILY 07/09 1653 AC 07/14 PO 0836 Results Last 48 Hrs of Labs/Mics: Laboratory Tests 07/15/16 0500: Anion Gap 7, Estimated GFR 41 L, BUN/Creatinine Ratio 10.6, Magnesium 2.1 07/14/16 0520: Anion Gap 5, Estimated GFR 44 L, BUN/Creatinine Ratio 10.7, CBC w Diff NO MAN DIFF REQ, RBC 2.68 L, MCV 99.4 H, MCH 33.5 H, RDW 15.7 H, MPV 8.5, Gran % 61.8, Lymphocytes % 20.0 L, Monocytes % 6.9, Eosinophils % 11.0 H, Basophils % 0.3, Absolute Granulocytes 4.2, Absolute Lymphocytes 1.4, Absolute Monocytes 0.5 , Absolute Eosinophils 0.8, Absolute Basophils 0, PUBS MCHC 33.6 Assessment/Plan Assessment/Plan 1. AMS with sepsis 2. New onset atrial fibrillation 3. Reported hx of CAD/PR/PVD/AAA repair/?TIA hx 4. HTN/HLD 5. s/p recent mechanical fall with hip fx and ORIF, recurrent falls 6. CKD 7. Bifascicular block, previously noted We will continue treatment for atrial fibrillation with heart rate control. The patient's heart rate control is currently adequate. Given the patient's history of falls, as well as his current anemia, he is a suboptimal candidate for long-term anticoagulation. The patient has a mild cardiomyopathy with an LVEF of 40%. We will attempt to add an MAURICE inhibitor or angiotensin receptor daija to his regimen. Further discussion for overall goals of care will be discussed with the family. Continue telemetry? No
[2016-07-15 11:21] VITALS: BP 126/64
--- NOTE | 2016-07-15 11:22 | PN- Infect Dx ---
Subjective Subjective: Afebrile without complaints Objective Last 24 Hrs of Vital Signs/I&O Vital Signs Date Time Temp Pulse Resp B/P Pulse O2 O2 Flow FiO2 Ox Delivery Rate 07/15 1039 Nasal 1.0L Cannula 07/15 1022 Nasal 1.0L Cannula 07/15 08 97.7 78 20 98/60 92 Room Air 07/15 0003 98.2 70 16 120/68 94 Room Air 07/15 0000 Room Air 07/14 2103 72 128/66 07/14 1933 93 Room Air Room Air 07/14 1600 94 Room Air 07/14 1530 98.2 54 20 122/70 94 Room Air Intake & Output 07/15 1600 07/15 0800 07/15 0000 Intake Total 350 760 Output Total 150 125 Balance 200 635 Intake, IV 0 400 Intake, Oral 350 360 Number 1 0 Bowel Movements Output, Urine 150 125 Physical Exam Other Physical Findings: He is lethargic but more responsive and verbal in no acute distress. He does have a persistent cough Lungs difficult to evaluate secondary to moaning Heart regular rhythm with no murmur Extremities no cyanosis, clubbing or edema; PICC in the right upper extremity with no inflammation at the site Results Last 24 Hours of Lab Results: Laboratory Tests 07/15 0500 Chemistry Sodium (137 - 145 mmol/L) 145 Potassium (3.5 - 5.1 mmol/L) 4.6 Chloride (98 - 107 mmol/L) 112 H Carbon Dioxide (22 - 30 mmol/L) 25 Anion Gap (5 - 16) 7 BUN (9 - 20 mg/dL) 17 Creatinine (0.7 - 1.2 mg/dL) 1.6 H Estimated GFR (>60 ml/min) 41 L BUN/Creatinine Ratio (7 - 25 %) 10.6 Magnesium (1.6 - 2.3 mg/dL) 2.1 Last 24 Hours of [place]ner Results: No recent cultures Assessment/Plan Impression: Stable with temperatures and white blood cell count remaining normal on Amoxicillin Day 9 of treatment for Proteus sepsis, possibly secondary to a urinary tract infection versus a pulmonary process. A post void residual yesterday only revealed 20-40 mL of urine; therefore there is no evidence for urinary retention. Suggestion: 1. Continue Amoxicillin to complete a 14 day course of antibiotics
--- NOTE | 2016-07-15 13:31 | PN- Pulmonary ---
Subjective HPI/Critical Care Issues: The patient is awake, alert, confused The events of the last 24 hours as well as telemetry were reviewed. Review of Systems: Unable to fully obtained due to patient's mental state Objective Current Medications: Current Medications Sig/Chirag Start time Last Medication Dose Route Stop Time Status Admin Acetaminophen 650 MG .STK-MED ONE 07/15 0452 DC PO 07/15 0453 Acetaminophen 650 MG .STK-MED ONE 07/14 2032 DC PO 07/14 203 Acetaminophen 1,000 MG Q6-PRN PRN 07/06 2315 AC 07/11 IV 0847 Acetaminophen 650 MG Q6P PRN 07/05 2200 AC 07/15 PO 0515 Albuterol Sulfate 3 ML BID PRN 07/13 1008 AC 07/14 INH 1050 Amoxicillin 500 MG Q8 07/13 2230 AC 07/15 PO 07/19 2300 1118 Atorvastatin Calcium 40 MG 1700 07/06 1700 AC 07/14 PO 1734 Bisacodyl 10 MG ONCE PRN 07/14 1045 AC [place] Chlorhexidine 5 ML BID 07/08 1356 AC 07/15 Gluconate PO 1125 Cholecalciferol 1,000 IU DAILY 07/06 1000 AC 07/15 PO 1118 Cyanocobalamin 1,000 MCG DAILY 07/06 1000 AC 07/15 PO 1117 Dextrose/Sodium 500 ML ONCE ONE 07/15 0700 AC 07/15 Chloride IV 07/15 1659 1012 Docusate Sodium 100 MG DAILY 07/12 1215 AC 07/14 PO 0837 Enoxaparin Sodium 30 MG DAILY 07/13 1000 AC 07/15 SC 1123 Guaifenesin 10 ML .STK-MED ONE 07/15 442 DC PO 07/15 0444 Guaifenesin 10 ML .STK-MED ONE 07/14 2033 DC PO 07/14 203 Guaifenesin 10 ML .STK-MED ONE 07/14 173 DC PO 07/14 1733 Guaifenesin 10 ML Q6H 07/05 2315 AC 07/15 PO 1118 Ipratropium [place] 2.5 ML BID PRN 07/13 1008 AC 07/14 INH 1050 Magnesium Oxide 400 MG DAILY 07/14 1040 AC 07/15 PO 1118 Metoprolol Tartrate 25 MG BID 07/09 0530 AC 02/03 PO 1115 Olanzapine 2.5 MG Q8P PRN 07/05 2330 AC 07/12 PO 2022 Patient Medication 1 ED ONE ONE 07/14 1330 DC Teaching ED 07/14 1331 Phosphate 250 MG PC AND AT BEDTIME 07/09 1300 AC 07/15 PO 1118 Polyethylene Glycol 17 GM DAILY 07/12 1211 AC 07/14 PO 0838 Senna/Docusate Sodium 2 TAB DAILY 07/12 1211 AC 07/14 PO 0837 Sodium Chloride 500 ML BOLUS ONE 07/14 0715 DC 07/14 IV 07/14 1714 0847 Tamsulosin HCl 0.4 MG DAILY 07/09 1653 AC 07/15 PO 1119 Vital Signs & I&O Last 24 Hrs of Vitals and I&O: Vital Signs Date Time Temp Pulse Resp B/P Pulse O2 O2 Flow FiO2 Ox Delivery Rate 07/15 1131 98 Room Air Room Air 07/15 1121 126/64 07/15 1119 78 126/64 07/15 1115 78 126/64 07/15 1039 Nasal 1.0L Cannula 07/15 1022 Nasal 1.0L Cannula 07/15 0800 97.7 78 20 98/60 92 Room Air 07/15 0003 98.2 70 16 120/68 94 Room Air 07/15 0000 Room Air 07/14 2103 72 128/66 07/14 1933 93 Room Air Room Air 07/14 1600 94 Room Air 07/14 1530 98.2 54 20 122/70 94 Room Air Intake & Output 07/15 1600 07/15 0800 07/15 0000 Intake Total 120 350 760 Output Total 150 125 Balance 120 200 635 Intake, IV 0 400 Intake, Oral 120 350 360 Number 1 1 0 Bowel Movements Output, Urine 150 125 Impression/Plan Impression/Plan Impression/Plan: Physical Exam General Appearance delirious not oriented Skin No Rashes, No Breakdown HEENT Atraumatic, PERRLA Neck Supple Cardiovascular Regular Rate, Normal S1, Normal S2, No Murmurs Lungs Normal Air Movement, bilateral rhonchi present, crackles both bases Abdomen Normal Bowel Sounds, Soft, No Tenderness Neurological Sensation Intact Extremities No Clubbing, No Cyanosis, unilateral edema present on the right leg Vascular Pulses Symmetrical CT CHEST ABD AND PELVIS IMPRESSION: 1. Small bilateral pleural effusions with overlying minimal dependent compressive atelectasis. Patchy groundglass opacities along the periphery of the right upper and right middle lobes. This could reflect a mild acute or developing infectious or inflammatory process. 2. No acute findings within the abdomen or pelvis. No organizing intra-abdominal or pelvic fluid collections. The gallbladder is physiologically distended but otherwise unremarkable. There are no visible radiopaque gallstones. 3. A moderate amount of retained stool throughout the colon, indicative of constipation. Feculent material is also identified within loops of small bowel, which is indicative of delayed intestinal transit. 4. Mechanical hardware within the right hip and proximal right femur, related to recent orthopedic surgery. Mild asymmetric hypertrophy of the musculature surrounding the right hip, most likely merchandising representative of minimal intramuscular hematoma. No visible organizing fluid collections to suggest abscess. No immediate mechanical hardware complications. 07/10 IMPRESSION This is a gentleman with chronic kidney disease, previous ischemic heart disease with previous NV, hyperlipidemia, peripheral vascular disease, previous AAA repair, who is on antiplatelet therapy for peripheral vascular disease, hypertension hyperlipidemia now here with a hip fracture s/p surg on 05/30, subsequently had delirium for very prolonged period due to multiple factors, previous urinary retention with UTI with previous urology evaluation, now comes in with * Significant delirium with worsening dementia, with proteus bacterimia due to urological origin. PT has rhodococci in the sputum with prob pna aswell but seems less likely. 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) * Previous urinary retention on Flomax with previous post void residue being high, was followed by urology, with recurrent uti * CKD stage 3 now with mild worsening renal function prob prerenal * Previous QTC prolongation (with occasional use of atypical antipsycotics, this was used as a last resort family agreed to rx with these meds aswell as they wish more of symptomatic care) * Recent hip fracture, on and off constipation subsequently * Mild cognitive impairment with worsening mental status in the past few months, 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 Patient was on antiplatelet therapy before and this needs to be started when he is able to take po. When he is off lovenox as he is high risk for bleeding * IHD with cardiomyopathy low ef * Hypertension and hyperlipidemia stable, Ischemic heart disease hypertension stable, Previous aaa * Sig djd cspine REC COnt abx per ID Cont agg bowel regimen OOB to chair PT eval REmove restraints Miralax daily Senna and docusate daily Chlorhexide mouth wash bid daily Keep hob up Olanzapine only for severe delirium, if not hold it Try to avoid trazadone. Ok with one doses of prm benzo if he needs it, if antipsycotic does not help Start mag ox dialy 400 mg and hold for diarrhea Nebs prn only from now on COnt flomax Watch hct and check stool for heme Watch renal function Reduce ivf if he starts taking po Do a bladder scan after he voids Ok to gen med floor Prog poor pt is dnr and dni Discussed with family in detail multiple times before
[2016-07-15 16:11] VITALS: BP 104/64
--- NOTE | 2016-07-15 20:26 | NUR ---
PT TRANSFERRED TO TELE ROOM #174-1 AT ABOUT 1830 ON 07/15/16. PT IS A/O. HIS DAUGHTER WAS AT BEDSIDE. PT AND DAUGHTER ORRIENTED TO ROOM. SKIN ASSESSED. SOME BRUISING ON SKIN OF BUE AND BLE. SMALL DINE SIZED NON BLANCHABLE AREA TO RIGHT HIP. AND BOTTOM IS REDDEND BUT BLANCHABLE. TRACE EDEMA TO BLE. SAFTEY MAINTAINED. CALL WHEELER WITHIN REACH.
[2016-07-16 07:30] VITALS: BP 120/64
--- NOTE | 2016-07-16 10:32 | PN- Housestaff ---
Subjective Follow-up For: Penumonia Resp failure Acute delirium A fib, new onset Complaints: no complaints Subjective: Awake more alert. No more bowel movements this morning. Patient oriented to time, place and person. Review of Systems Constitutional: Denies: chills, fever. Cardiovascular: Denies: chest pain, orthopena, palpitations. Respiratory: Reports: cough. Denies: short of breath, sputum production. Gastrointestinal: Reports: diarrhea. Denies: abdominal pain, constipation. Genitourinary: Denies: dysuria. Objective Last 24 Hrs of Vital Signs/I&O Vital Signs Date Time Temp Pulse Resp B/P Pulse O2 O2 Flow FiO2 Ox Delivery Rate 07/16 0944 98.2 95 20 120/64 07/16 0944 98.2 95 20 120/64 07/16 0800 95 Room Air Room Air 07/16 0730 98.2 95 20 120/64 95 Room Air 07/16 0000 Room Air 07/15 2158 77 110/68 07/15 1637 96 Room Air Room Air 07/15 1611 98.0 74 18 104/64 95 Room Air Intake & Output 07/16 1600 07/16 0800 07/16 0000 Intake Total 240 450 Output Total 300 140 Balance -60 310 Intake, IV 300 Intake, Oral 240 150 Output, Urine 300 140 Physical Exam General Appearance: Alert, Oriented X3, Cooperative, No Acute Distress HEENT: Atraumatic, EOMI, Mucous Membr. moist/pink Neck: Supple, No JVD, No thryomegaly, +2 Carotid Pulse wo Bruit Lymphatic: Cervical nl Cardiovascular: Normal S1, Normal S2, No Murmurs Lungs: Bilateral scattered expiratory wheeze Abdomen: Normal Bowel Sounds, Soft, No Tenderness, No Hepatospenomegaly Extremities: Bilateral pedal edema, Right upper arm PICC line in place. No erythema Current Medications: Current Medications Sig/Chirag Start time Last Medication Dose Route Stop Time Status Admin Acetaminophen 1,000 MG Q6-PRN PRN 07/06 2315 AC 07/11 IV 0847 Acetaminophen 650 MG Q6P PRN 07/05 2200 AC 07/15 PO 0515 Albuterol Sulfate 3 ML BID PRN 07/13 1008 AC 07/14 INH 1050 Amoxicillin 500 MG Q8 07/13 2230 AC 07/16 PO 07/19 2300 0514 Atorvastatin Calcium 40 MG 1700 07/06 1700 AC 07/15 PO 1630 Bisacodyl 10 MG ONCE PRN 07/14 1045 AC NC Chlorhexidine 5 ML BID 07/08 1356 AC 07/16 Gluconate PO 0955 Cholecalciferol 1,000 IU DAILY 07/06 1000 AC 07/16 PO 0944 Cyanocobalamin 1,000 MCG DAILY 07/06 1000 AC 07/16 PO 0944 Dextrose/Sodium 500 ML ONCE ONE 07/15 0700 DC 07/15 Chloride IV 07/15 1659 1012 Docusate Sodium 100 MG DAILY 07/12 1215 AC 07/16 PO 0944 Enoxaparin Sodium 30 MG DAILY 07/13 1000 AC 07/16 SC 0944 Guaifenesin 10 ML .STK-MED ONE 07/15 2248 DC PO 07/15 2249 Guaifenesin 10 ML .STK-MED ONE 07/15 1626 DC PO 07/15 1627 Guaifenesin 10 ML Q6H 07/05 2315 AC 07/16 PO 1134 Ipratropium [place] 2.5 ML BID PRN 07/13 1008 AC 07/14 INH 1050 Magnesium Oxide 400 MG DAILY 07/14 1040 AC 07/16 PO 0944 Metoprolol Tartrate 25 MG BID 07/09 0530 AC 07/16 PO 0944 Olanzapine 2.5 MG Q8P PRN 07/05 2330 AC 07/16 PO 0239 Phosphate 250 MG PC AND AT BEDTIME 07/09 1300 AC 07/16 PO 0944 Polyethylene Glycol 17 GM DAILY 07/12 1211 AC 07/14 PO 0838 Senna/Docusate Sodium 2 TAB DAILY 07/12 1211 AC 07/16 PO 0944 Tamsulosin HCl 0.4 MG DAILY 07/09 1653 07/16 PO 0944 Last 24 Hrs of Lab/[place]ner Results Last 24 Hrs of Labs/Mics: Laboratory Tests 07/16/16 0430: Anion Gap 6, Estimated GFR 48 L, BUN/Creatinine Ratio 10.7, Magnesium 2.0 Microbiology 07/15 1530 STOOL: Clostridium difficile Toxin A & B - RECD Assessment/Plan Assessment: Assessment- 1. HCAP 2. Delirium likely 2/2 infection 3. New onset afib 4. Recent hip fx s/p ORIF 5. HLD 6. HTN 7. 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 Creatine is 1.4 today (from 1.6 yesterday) -Will give NS at 50 c/ hr; half a liter again today given GAIL Problem List: 1. Atrial fibrillation 2. Status post hip surgery 3. Altered mental status 4. Pneumonia Pain Ratin Pain Location: None Pain Goal: Remain pain free Pain Plan: Mild pain pathway Tomorrow's Labs & Rationales: BEP for resolving GAIL DVT/Prophylaxis: pharmacological
--- NOTE | 2016-07-16 13:06 | PN- Pulmonary ---
Subjective HPI/Critical Care Issues: Awake more alert. No more bowel movements this morning. Patient oriented to time, place and person. Review of Systems Constitutional: Denies: chills, fever. Cardiovascular: Denies: chest pain, orthopena, palpitations. Respiratory: Reports: cough. Denies: short of breath, sputum production. Gastrointestinal: Reports: diarrhea. Denies: abdominal pain, constipation. Genitourinary: Denies: dysuria. Objective Current Medications: Current Medications Sig/Chirag Start time Last Medication Dose Route Stop Time Status Admin Acetaminophen 1,000 MG Q6-PRN PRN 07/06 2315 AC 07/11 IV 0847 Acetaminophen 650 MG Q6P PRN 07/05 2200 AC 07/15 PO 0515 Albuterol Sulfate 3 ML BID PRN 07/13 1008 AC 07/14 INH 1050 Amoxicillin 500 MG Q8 07/13 2230 AC 07/16 PO 07/19 2300 0514 Atorvastatin Calcium 40 MG 1700 07/06 1700 AC 07/15 PO 1630 Bisacodyl 10 MG ONCE PRN 07/14 1045 AC [place] Chlorhexidine 5 ML BID 07/08 1356 AC 07/16 Gluconate PO 0955 Cholecalciferol 1,000 IU DAILY 07/06 1000 AC 07/16 PO 0944 Cyanocobalamin 1,000 MCG DAILY 07/06 1000 AC 07/16 PO 0944 Dextrose/Sodium 500 ML ONCE ONE 07/15 0700 DC 07/15 Chloride IV 07/15 1659 1012 Docusate Sodium 100 MG DAILY 07/12 1215 AC 07/16 PO 0944 Enoxaparin Sodium 30 MG DAILY 07/13 1000 AC 07/16 SC 0944 Guaifenesin 10 ML .STK-MED ONE 07/15 2248 DC PO 07/15 2249 Guaifenesin 10 ML .STK-MED ONE 07/15 1626 DC PO 07/15 1627 Guaifenesin 10 ML Q6H 07/05 2315 AC 07/16 PO 1134 Ipratropium [place] 2.5 ML BID PRN 07/13 1008 AC 07/14 INH 1050 Magnesium Oxide 400 MG DAILY 07/14 1040 AC 07/16 PO 0944 Metoprolol Tartrate 25 MG BID 07/09 0530 AC 07/16 PO 0944 Olanzapine 2.5 MG Q8P PRN 07/05 2330 AC 07/16 PO 0239 Phosphate 250 MG PC AND AT BEDTIME 07/09 1300 AC 07/16 PO 1248 Polyethylene Glycol 17 GM DAILY 07/12 1211 07/14 PO 0838 Senna/Docusate Sodium 2 TAB DAILY 07/12 1211 AC 07/16 PO 0944 Sodium Chloride 500 ML BOLUS ONE 07/16 1230 AC 07/16 IV 07/16 2229 1253 Tamsulosin HCl 0.4 MG DAILY 07/09 1653 07/16 PO 0944 Vital Signs & I&O Last 24 Hrs of Vitals and I&O: Vital Signs Date Time Temp Pulse Resp B/P Pulse O2 O2 Flow FiO2 Ox Delivery Rate 07/16 0944 98.2 95 20 120/64 07/16 0944 98.2 95 20 120/64 07/16 0800 95 Room Air Room Air 07/16 0730 98.2 95 20 120/64 95 Room Air 07/16 0000 Room Air 07/15 2158 77 110/68 07/15 1637 96 Room Air Room Air 07/15 1611 98.0 74 18 104/64 95 Room Air Intake & Output 07/16 1600 07/16 0800 07/16 0000 Intake Total 240 450 Output Total 300 140 Balance -60 310 Intake, IV 300 Intake, Oral 240 150 Output, Urine 300 140 Laboratory Tests 07/16 07/15 0430 0500 Chemistry Sodium (137 - 145 mmol/L) 142 145 Potassium (3.5 - 5.1 mmol/L) 4.7 4.6 Chloride (98 - 107 mmol/L) 111 H 112 H Carbon Dioxide (22 - 30 mmol/L) 26 25 Anion Gap (5 - 16) 6 7 BUN (9 - 20 mg/dL) 15 17 Creatinine (0.7 - 1.2 mg/dL) 1.4 H 1.6 H Estimated GFR (>60 ml/min) 48 L 41 L BUN/Creatinine Ratio (7 - 25 %) 10.7 10.6 Magnesium (1.6 - 2.3 mg/dL) 2.0 2.1 Microbiology Date/Time Procedure - Status Source Growth 07/15 1530 Clostridium difficile Toxin A & B - RECD STOOL Impression/Plan Impression/Plan Impression/Plan: Physical Exam General Appearance delirious not oriented Skin No Rashes, No Breakdown HEENT Atraumatic, PERRLA Neck Supple Cardiovascular Regular Rate, Normal S1, Normal S2, No Murmurs Lungs Normal Air Movement, bilateral rhonchi present, crackles both bases Abdomen Normal Bowel Sounds, Soft, No Tenderness Neurological Sensation Intact Extremities No Clubbing, No Cyanosis, unilateral edema present on the right leg Vascular Pulses Symmetrical CT CHEST ABD AND PELVIS IMPRESSION: 1. Small bilateral pleural effusions with overlying minimal dependent compressive atelectasis. Patchy groundglass opacities along the periphery of the right upper and right middle lobes. This could reflect a mild acute or developing infectious or inflammatory process. 2. No acute findings within the abdomen or pelvis. No organizing intra-abdominal or pelvic fluid collections. The gallbladder is physiologically distended but otherwise unremarkable. There are no visible radiopaque gallstones. 3. A moderate amount of retained stool throughout the colon, indicative of constipation. Feculent material is also identified within loops of small bowel, which is indicative of delayed intestinal transit. 4. Mechanical hardware within the right hip and proximal right femur, related to recent orthopedic surgery. Mild asymmetric hypertrophy of the musculature surrounding the right hip, most likely field service representative of minimal intramuscular hematoma. No visible organizing fluid collections to suggest abscess. No immediate mechanical hardware complications. 07/10 IMPRESSION This is a gentleman with chronic kidney disease, previous ischemic heart disease with previous [place], hyperlipidemia, peripheral vascular disease, previous AAA repair, who is on antiplatelet therapy for peripheral vascular disease, hypertension hyperlipidemia now here with a hip fracture s/p surg on 05/30, subsequently had delirium for very prolonged period due to multiple factors, previous urinary retention with UTI with previous urology evaluation, now comes in with * SLowly resolving Significant delirium with worsening dementia, with proteus bacterimia due to urological origin. PT has rhodococci in the sputum with prob pna aswell but seems less likely. 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) * Previous urinary retention on Flomax with previous post void residue being high, was followed by urology, with recurrent uti * CKD stage 3 now with mild worsening renal function prob prerenal * Previous QTC prolongation (with occasional use of atypical antipsycotics, this was used as a last resort family agreed to rx with these meds aswell as they wish more of symptomatic care) * Recent hip fracture, on and off constipation subsequently * Mild cognitive impairment with worsening mental status in the past few months, 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 Patient was on antiplatelet therapy before and this needs to be started when he is able to take po. When he is off lovenox as he is high risk for bleeding * IHD with cardiomyopathy low ef * Hypertension and hyperlipidemia stable, Ischemic heart disease hypertension stable, Previous aaa * Sig djd cspine REC COnt abx per ID Cont agg bowel regin, hold if he has diarrhea OOB to chair PT eval and ambulate if able REmove restraints Miralax to be held if he has diarrhea and restart if no bm Senna and docusate daily Chlorhexide mouth wash bid daily Keep hob up Olanzapine only for severe delirium, if not hold it Try to avoid trazadone. Ok with one doses of prm benzo if he needs it, if antipsycotic does not help Reduce mag ox dialy 200 mg and hold for diarrhea Nebs prn only from now on COnt flomax Watch hct Watch renal function Ok to gen med floor Prog poor pt is dnr and dni Discussed with family in detail multiple times before
[2016-07-16 16:27] VITALS: BP 118/60
[2016-07-16 17:24] VITALS: BP 118/76
--- NOTE | 2016-07-16 20:45 | NUR ---
PATIENT ARRIVED TO FLOOR AT 1700, TSF FROM TELE, DX PNA/AMS VS 98.3 68 20 118/76 96% ROOM AIR, ASP & FALL PRECAUTIONS, CONTACT-VRE A&O TO SELF ONLY, CONFUSED, I&E WHEEZES, CRACKLES AT BASES INCONTINENT OF B&B, MAY ASK FOR URINAL; LAC OVER R EYE, ABRASION TO L LATERAL KNEE, OTHERWISE SKIN INTACT, SIZEWISE IN PLACE, BED ALARM IN PLACE #[id number] MICHELLE PICC LINE, PLACED 07/08/16, DSG CHANGED 07/11/16, NEXT DSG DUE 07/18/16 TAKES PILLS CRUSHED IN APPLESAUCE ORIENTED TO CALL WHEELER CONTINUE TO MONITOR
[2016-07-17 00:36] VITALS: BP 132/75
--- NOTE | 2016-07-17 05:48 | NUR ---
APPX 0535, RN NOTED THAT PT HAD REMOVED COBAN FROM PICC SITE AND PULLED PICC LINE OUT. DSG BASE REMOVED FROM SKIN. SITE CLEANED, STABILIZED AND DRESSED. PICC LINE INTACT AT 37 CM. CHARGE NURSE AWARE AND ASSISTED IN DRESSING. MD MARIAN BOWENS NOTIFIED.
[2016-07-17 08:22] VITALS: BP 120/83
--- NOTE | 2016-07-17 11:03 | NUR ---
PHYSICAL THERAPY- ATTEMPTED TO SEE PT, BUT UNABLE TO AROUSE PT. PT EXTREMELY LETHARGIC W/ MINIMAL GRUNTING. NSG ATTEMPTED TO AROUSE PT, BUT PT RESISTING. WILL CHECK BACK TOMORROW AND FOLLOW APPROPRIATE PT WAS EXTREMELY LETHARGIC. THANK YOU, ALBA BRADY, SIDNEYT
--- NOTE | 2016-07-17 12:01 | PN- Pulmonary ---
Subjective HPI/Critical Care Issues: On off sleepiness per RN now Awake more alert. No more bowel movements this morning. Patient oriented to time, place and person. Review of Systems Constitutional: Denies: chills, fever. Cardiovascular: Denies: chest pain, orthopena, palpitations. Respiratory: Reports: cough. Denies: short of breath, sputum production. Gastrointestinal: Reports: diarrhea. Denies: abdominal pain, constipation. Genitourinary: Denies: dysuria. Objective Current Medications: Current Medications Sig/Chirag Start time Last Medication Dose Route Stop Time Status Admin Acetaminophen 1,000 MG .STK-MED ONE 07/17 0203 DC IV 07/17 0204 Acetaminophen 1,000 MG Q6-PRN PRN 07/06 2315 AC 07/17 IV 0214 Acetaminophen 650 MG Q6P PRN 07/05 2200 AC 07/15 PO 0515 Albuterol Sulfate 3 ML BID PRN 07/13 1008 AC 07/14 INH 1050 Amoxicillin 500 MG Q8 07/13 2230 AC 07/17 PO 07/19 2300 0601 Atorvastatin Calcium 40 MG 1700 07/06 1700 AC 07/16 PO 1616 Bisacodyl 10 MG ONCE PRN 07/14 1045 AC [place] Chlorhexidine 15 ML BID 07/16 2200 AC 07/16 Gluconate PO 2201 Chlorhexidine 5 ML BID 07/08 1356 DC 07/16 Gluconate PO 0955 Cholecalciferol 1,000 IU DAILY 07/06 1000 AC 07/16 PO 0944 Cyanocobalamin 1,000 MCG DAILY 07/06 1000 AC 07/16 PO 0944 Docusate Sodium 100 MG DAILY 07/12 1215 AC 07/16 PO 0944 Enoxaparin Sodium 30 MG DAILY 07/13 1000 AC 07/16 SC 0944 Guaifenesin 10 ML .STK-MED ONE 07/17 0008 DC PO 07/17 0009 Guaifenesin 10 ML .STK-MED ONE 07/16 1611 DC PO 07/16 1612 Guaifenesin 10 ML Q6H 07/05 2315 AC 07/17 PO 0600 Ipratropium [place] 2.5 ML BID PRN 07/13 1008 AC 07/14 INH 1050 Magnesium Oxide 200 MG DAILY 07/17 1000 AC PO Magnesium Oxide 400 MG DAILY 07/14 1040 DC 07/16 PO 0944 Metoprolol Tartrate 25 MG BID 07/09 0530 AC 07/16 PO 2201 Olanzapine 2.5 MG Q8P PRN 07/05 2330 AC 07/16 PO 0239 Phosphate 250 MG PC AND AT BEDTIME 07/09 1300 AC 07/16 PO 2200 Polyethylene Glycol 17 GM DAILY 07/12 1211 AC 07/14 PO 0838 Senna/Docusate Sodium 2 TAB DAILY 07/12 1211 AC 07/16 PO 0944 Sodium Chloride 500 ML BOLUS ONE 07/16 1230 DC 07/16 IV 07/16 2228 1253 Sodium Polystyrene 60 ML ONCE ONE 07/17 1130 DC Sulfonate PO 07/17 113 Tamsulosin HCl 0.4 MG DAILY 07/09 1653 AC 07/16 PO 0944 Vital Signs & I&O Last 24 Hrs of Vitals and I&O: Vital Signs Date Time Temp Pulse Resp B/P Pulse O2 O2 Flow FiO2 Ox Delivery Rate 07/17 0822 97.6 63 20 120/83 95 Room Air 07/17 0036 98.2 66 18 132/75 95 Room Air 07/17 0000 95 Room Air 07/16 2201 64 130/70 07/16 1724 98.3 68 20 118/76 96 / 1700 96 Room Air 07/16 1627 97.9 90 18 118/60 97 07/16 1406 97 Room Air Room Air Intake & Output 07/17 1600 07/17 0800 02 0000 Intake Total 340 360 Output Total 150 150 Balance 190 210 Intake, IV 100 Intake, Oral 240 360 Output, Urine 150 150 Impression/Plan Impression/Plan Impression/Plan: Physical Exam General Appearance delirious not oriented Skin No Rashes, No Breakdown HEENT Atraumatic, PERRLA Neck Supple Cardiovascular Regular Rate, Normal S1, Normal S2, No Murmurs Lungs Normal Air Movement, bilateral rhonchi present, crackles both bases Abdomen Normal Bowel Sounds, Soft, No Tenderness Neurological Sensation Intact Extremities No Clubbing, No Cyanosis, unilateral edema present on the right leg Vascular Pulses Symmetrical CT CHEST ABD AND PELVIS IMPRESSION: 1. Small bilateral pleural effusions with overlying minimal dependent compressive atelectasis. Patchy groundglass opacities along the periphery of the right upper and right middle lobes. This could reflect a mild acute or developing infectious or inflammatory process. 2. No acute findings within the abdomen or pelvis. No organizing intra-abdominal or pelvic fluid collections. The gallbladder is physiologically distended but otherwise unremarkable. There are no visible radiopaque gallstones. 3. A moderate amount of retained stool throughout the colon, indicative of constipation. Feculent material is also identified within loops of small bowel, which is indicative of delayed intestinal transit. 4. Mechanical hardware within the right hip and proximal right femur, related to recent orthopedic surgery. Mild asymmetric hypertrophy of the musculature surrounding the right hip, most likely marketing development representative of minimal intramuscular hematoma. No visible organizing fluid collections to suggest abscess. No immediate mechanical hardware complications. 07/10 IMPRESSION This is a gentleman with chronic kidney disease, previous ischemic heart disease with previous [place], hyperlipidemia, peripheral vascular disease, previous AAA repair, who is on antiplatelet therapy for peripheral vascular disease, hypertension hyperlipidemia now here with a hip fracture s/p surg on 05/30, subsequently had delirium for very prolonged period due to multiple factors, previous urinary retention with UTI with previous urology evaluation, now comes in with * SLowly resolving Significant delirium with worsening dementia, with proteus bacterimia due to urological origin. PT has rhodococci in the sputum with prob pna aswell but seems less likely. 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) * Previous urinary retention on Flomax with previous post void residue being high, was followed by urology, with recurrent uti * CKD stage 3 now with mild worsening renal function prob prerenal * Previous QTC prolongation (with occasional use of atypical antipsycotics, this was used as a last resort family agreed to rx with these meds aswell as they wish more of symptomatic care) * Recent hip fracture, on and off constipation subsequently * Mild cognitive impairment with worsening mental status in the past few months, 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 Patient was on antiplatelet therapy before and this needs to be started when he is able to take po. When he is off lovenox as he is high risk for bleeding * IHD with cardiomyopathy low ef * Hypertension and hyperlipidemia stable, Ischemic heart disease hypertension stable, Previous aaa * Sig djd cspine * Mild hyperkalemia REC COnt abx per ID Check mag and potassium later today HOId agg bowel regimen for one to two days and dc all bowel meds for now OOB to chair PT eval and ambulate if able REmove restraints Chlorhexide mouth wash bid daily Keep hob up Olanzapine only for severe delirium, if not hold it Ok with one doses of prm benzo if he needs it, if antipsycotic does not help Reduce mag ox dialy 200 mg and hold for diarrhea Nebs prn only from now on COnt flomax Watch hct Prog poor pt is dnr and dni Discussed with family in detail multiple times before
[2016-07-17 15:55] VITALS: BP 120/80
[2016-07-18 00:33] VITALS: BP 140/80
--- NOTE | 2016-07-18 06:32 | PN- Housestaff ---
Subjective Follow-up For: Penumonia Resp failure Acute delirium A fib, new onset Complaints: no complaints Subjective: Patient awake and alert this morning, states that he had 2 bowel movements. He is oriented to time place and person, making meaningful conversation. Review of Systems Constitutional: Reports: see HPI. Objective Last 24 Hrs of Vital Signs/I&O Vital Signs Date Time Temp Pulse Resp B/P Pulse O2 O2 Flow FiO2 Ox Delivery Rate 07/18 0033 98.0 64 20 140/80 95 07/17 2114 64 146/70 07/17 1600 93 Room Air 07/17 1555 98.1 66 19 120/80 93 07/17 0822 97.6 63 20 120/83 95 Room Air 07/17 0800 95 Room Air Room Air Intake & Output 07/18 0800 07/18 0000 07/17 1600 Intake Total 400 480 Output Total 250 100 250 Balance -250 300 230 Intake, Oral 400 480 Number 1 Bowel Movements Output, Urine 250 100 250 Physical Exam General Appearance: Alert, Oriented X3, Cooperative, No Acute Distress HEENT: Atraumatic, PERRLA, EOMI Cardiovascular: Regular Rate, Normal S1, Normal S2 Lungs: Clear to Auscultation, Normal Air Movement Abdomen: Normal Bowel Sounds, Soft, No Tenderness, No Hepatospenomegaly Neurological: Normal Speech Current Medications: Current Medications Sig/Chirag Start time Last Medication Dose Route Stop Time Status Admin Acetaminophen 1,000 MG Q6-PRN PRN 07/06 2315 DC 07/17 IV 0214 Acetaminophen 650 MG Q6P PRN 07/05 2200 AC 07/15 PO 0515 Albuterol Sulfate 3 ML BID PRN 07/13 1008 AC 07/14 INH 1050 Amoxicillin 500 MG Q8 07/13 2230 AC 07/18 PO 07/19 2300 0649 Atorvastatin Calcium 40 MG 1700 07/06 1700 AC 07/17 PO 1648 Bisacodyl 10 MG ONCE PRN 07/14 1045 AC [place] Chlorhexidine 15 ML BID 07/17 1356 DC Gluconate PO Chlorhexidine 15 ML BID 07/16 2200 AC 07/17 Gluconate PO 2115 Cholecalciferol 1,000 IU DAILY 07/06 1000 AC 07/17 PO 1230 Cyanocobalamin 1,000 MCG DAILY 07/06 1000 AC 07/17 PO 1229 Docusate Sodium 100 MG DAILY 07/12 1215 DC 07/17 PO 1229 Enoxaparin Sodium 30 MG DAILY 07/13 1000 AC 07/17 SC 1230 Guaifenesin 10 ML .STK-MED ONE 07/17 1645 DC PO 07/17 1646 Guaifenesin 10 ML Q6H 07/05 2315 AC 07/18 PO 0649 Ipratropium [place] 2.5 ML BID PRN 07/13 1008 AC 07/14 INH 1050 Magnesium Oxide 200 MG DAILY 07/17 1000 AC 07/17 PO 1229 Metoprolol Tartrate 25 MG BID 07/09 0530 AC 07/17 PO 2114 Olanzapine 2.5 MG Q8P PRN 07/05 2330 DC 07/16 PO 0239 Phosphate 250 MG PC AND AT BEDTIME 07/09 1300 AC 07/17 PO 2112 Polyethylene Glycol 17 GM DAILY 07/12 1211 DC 07/14 PO 0838 Senna/Docusate Sodium 2 TAB DAILY 07/12 1211 DC 07/17 PO 1229 Sodium Polystyrene 60 ML ONCE ONE 07/17 1915 DC 07/17 Sulfonate PO 07/17 191 2111 Sodium Polystyrene 60 ML ONCE ONE 07/17 1130 DC 07/17 Sulfonate PO 07/17 1131 1419 Tamsulosin HCl 0.4 MG DAILY 07/09 1653 AC 07/17 PO 1229 Last 24 Hrs of Lab/Wilner Results Last 24 Hrs of Labs/Mics: Laboratory Tests 07/17/16 1740: Magnesium 2.2 07/17/16 0830: Anion Gap 5, Estimated GFR 48 L, BUN/Creatinine Ratio 10.7 Orders Stool Guaiac Testing: Negative Assessment/Plan Assessment: Assessment- 1. HCAP 2. Delirium likely 2/2 infection 3. New onset afib 4. Recent hip fx s/p ORIF 5. HLD 6. HTN 7. GAIL Plan- Blood culture grew Proteus, Currently on Augmentin PO day 13, aspiration precautions- puree and honey thich diet, keep head of the bed elevated, chlorahexadine swab twice a day Ate 50% of his lunch and dinner last night Sat 95% on RA His delirium seems to have cleared On metoprolol and 30 sc on lovenox, not a candidate for full AC due to hx of falls Surgical site healing well, continue analgesics Had 2 BM this morning, Guaiac negative Will hold the Mag-Ox today, it has been discontinued by me Will have PT reassess him Pending labs this morning Problem List: 1. Atrial fibrillation 2. Status post hip surgery 3. Altered mental status 4. Pneumonia Pain Ratin Pain Location: none Pain Goal: Pain 4 or less Pain Plan: per emr Tomorrow's Labs & Rationales: per emr
[2016-07-18 08:35] VITALS: BP 130/64
--- NOTE | 2016-07-18 11:55 | Patient Discharge Instructions ---
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 WITHIN 1 WEEK OF D/C Diet Continue normal diet: Yes Additional DIET Information: PUREE AND NECTAR THICK CONSISTENCY Activity Full Activity/No Limits: Yes Acute Coronary Syndrome Inclusion Criteria At DC or during hospital stay patient has or had the following: ACS DIAGNOSIS No Discharge Core Measures Meds if any: Prescribed or Continued at Discharge Meds if any: NOT Prescribed or Continued at Discharge Congestive Heart Failure Inclusion Criteria At DC or during hospital stay patient has or had the following: CHF DIAGNOSIS No Discharge Core Measures Meds if any: Prescribed or Continued at Discharge Meds if any: NOT Prescribed or Continued at Discharge Cerebrovascular accident Inclusion Criteria At DC or during hospital stay patient has or had the following: CVA/TIA Diagnosis No Discharge Core Measures Meds if any: Prescribed or Continued at Discharge Meds if any: NOT Prescribed or Continued at Discharge Venous thromboembolism Inclusion Criteria VTE Diagnosis No VTE Type NONE VTE Confirmed by (Test) NONE Discharge Core Measures - Per Current guidelines, there needs to be overlap - treatment for the first 5 days of Warfarin therapy. - If discharged on Warfarin prior to 5 days of - overlap therapy, the patient will need to be - assessed for post discharge needs including - *Post discharge parental anticoagulation - *Warfarin and/or parental anticoagulation education - *Follow up date to check INR post discharge At least 5 days overlap therapy as Inpatient No Meds if any: Prescribed or Continued at Discharge Note: Overlap Therapy is Warfarin and Anticoagulant Meds if any: NOT Prescribed or Continued at Discharge
[2016-07-18] MEDS ORDERED: LOVENOX30 MG/0.1 SC (11:57)
--- NOTE | 2016-07-18 11:58 | Discharge Summary ---
Visit Information Visit Dates Admission Date: 07/05/16 Discharge Date: 07/18/16 Hospital Course Course Attending Physician: NAY LARSON MD Primary Care Physician: NAY LARSON MD. Hospital Course: 86 YO M with PMH significant for HTN, CAD, IA, AAA (s/p stent placement), PVD, TIA, lung nodule, BPH, CKD, urinary retention secondary to stricture came to the ER after recurrent falls.prior to admission he was recently discharged from short-term rehabilitation secondary to falls and hip surgery. On admission, he was febrile to 102and was subsequently admitted to the hospital for healthcare acquired pneumonia. Patient was admitted and treated for the following conditions. 1. HCAP/ PROTEUS BACTEREMIA- his chest x-ray was suggestive of pneumonia, likely HCAP Given his recent admission at Hospital and then short-term rehabilitation. He was started on ankle Meissen and ceftaz edema for the same. His blood cultures grew Proteus, antibiotics were narrowed and he was subsequently converted to medications by mouth. He is to complete a 14 day course antibiotics. His WBC count did markedly improveback to his baseline, which is normal.he was initially admitted to the intensive care unit, subsequently was transferred to the cardiac telemetry floor and then to the regular general medicine floor. 2. NEW ONSET AFIB- He did go into new onset paroxysmal afib. He was 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 with beta daija, started on Plavix 75 mg for stroke prophylaxis, not an ideal candidate for full anti-coagulation 2/2 fall risk. 3. ACUTE DELIRIUM- thought to be 2/2 infection, his mentation was clear and back at baseline upon discharge as the infection started to subside. He did require PRN doses of Zyprexa for the delirium 4. HTN- continued on home dose of beta daija 5. HLD- continued on home dose of statin 6. BPH- continued on home dose of flomax Allergies: Coded Allergies: oxycodone (From PERCOCET) (HALLUCINATIONS 05/30/16) Disposition Summary Disposition Principal Diagnosis: 1. HCAP 2. NEW ONSET AFIB 3. ACUTE DELIRIUM Additional Diagnosis: 1. HTN 2. HLD 3. 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 WITHIN 1 WEEK OF D/C Medications at Discharge Discharge Medications: Stop taking the following medications: Furosemide (Furosemide) 20 MG TABLET ORAL MONDAY, MONDAY AND MONDAY Qty = 30 Spironolactone (Aldactone) 25 MG TABLET ORAL DAILY Qty = 30 Continue taking these medications: Cyanocobalamin (Vitamin B-12) 1,000 MCG TABLET 1 Tablet ORAL DAILY Comments: NOT GIVEN IN HOSPITAL Atorvastatin Calcium (Atorvastatin Calcium) 40 MG TABLET 1 Tablet ORAL DAILY Qty = 90 Comments: Last Taken: 06/21/15 Time: 1800PM Cholecalciferol (Vitamin D3) 1,000 UNIT TABLET 1 Tablet ORAL DAILY Comments: NOT GIVEN IN HOSPITAL Carvedilol (Coreg) 3.125 MG TABLET 6.25 Milligram ORAL TWICE DAILY Qty = 30 Comments: Last Taken: 06/22/16 Time: 9AM Tamsulosin HCl (Flomax) 0.4 MG CAP.ER.24H 1 Tablet ORAL 5 PM Qty = 30 Comments: Last Taken: 06/21/16 Time: 1800PM Acetaminophen (Acephen) 650 MG SUPP.RECT 1 SUPPOSITORY RECTALLY Q6H as needed for PAIN/TEMP>101 Comments: PER - NTE 3GM IN 24H Acetaminophen (Tylenol) 325 MG TABLET 2 Tablet ORAL Q6H as needed for PAIN/TEMP>101 Comments: PER -10 NTE 3GM APAP 24H Bisacodyl (Dulcolax) 10 MG SUPP.RECT 1 Suppository RECTAL DAILY as needed for CONSTIPATION Comments: PER -10 IF MOM INEFFECTIVE Na Phos,M-B/Na Phos,Di-Ba (Fleet Enema) 19 GRAM-7 GRAM/118 ML ENEMA 1 Enema RECTAL DAILY as needed for CONSTIPATION Comments: PER -10 Magnesium Hydroxide (Milk Of Magnesia) 400 MG/5 ML ORAL.SUSP 15 Milliliters ORAL Every 3 days Comments: PER -10 Guaifenesin (Kimber-Tussin) 100 MG/5 ML LIQUID 10 Milliliters ORAL Q6H Comments: FOR 7 DAYS Ipratropium/Albuterol Sulfate (Iprat-Albut 0.5-3(2.5) MG/3 Ml) 0.5 MG-3 MG (2.5 MG BASE)/3 ML AMPUL.NEB 3 Milliliters Inhale through mouth TWICE DAILY as needed for SOB/WHEEZE Comments: LAST DATE PER W-10 07/06/2016 Start taking the following new medications: Clopidogrel Bisulfate (Plavix) 75 MG TABLET 1 Tablet ORAL DAILY Qty = 30 No Refills Amoxicillin (Amoxicillin) 500 MG CAPSULE 500 Milligram ORAL EVERY 8 HOURS Qty = 4 No Refills The following medications have been changed: Old: Olanzapine (Olanzapine) 2.5 MG TABLET 1 Tablet ORAL EVERY 8 HOURS NEEDED as needed for AGITATION Qty = 30 New: Olanzapine (Olanzapine) 2.5 MG TABLET 1 Tablet ORAL Every 12 hours as needed as needed for AGITATION Qty = 30 Comments: NOT GIVEN Copies To: YAMILET VASQUEZ,DAVID Stratton
[2016-07-18] MEDS ORDERED: OLANZAPINE2.5 M1 PO (13:44)
[2016-07-18] MEDS ORDERED: AMOXICILLIN500 M2 PO (13:45)
[2016-07-18] MEDS ORDERED: PLAVIX75 M1 PO (13:45)
--- NOTE | 2016-07-18 13:49 | PN- Pulmonary ---
Subjective HPI/Critical Care Issues: DOing well afebrile vss chest mild crackles abd soft Objective Current Medications: Current Medications Sig/Chirag Start time Last Medication Dose Route Stop Time Status Admin Acetaminophen 1,000 MG Q6-PRN PRN 07/06 2315 DC 07/17 IV 0214 Acetaminophen 650 MG Q6P PRN 07/05 2200 AC 07/18 PO 0846 Albuterol Sulfate 3 ML BID PRN 07/13 1008 AC 07/14 INH 1050 Amoxicillin 500 MG Q8 07/13 2230 AC 07/18 PO 07/19 2300 0649 Atorvastatin Calcium 40 MG 1700 07/06 1700 AC 07/17 PO 1648 Bisacodyl 10 MG ONCE PRN 07/14 1045 AC NC Chlorhexidine 15 ML BID 07/17 1356 DC Gluconate PO Chlorhexidine 15 ML BID 07/16 2200 AC 07/18 Gluconate PO 1144 Cholecalciferol 1,000 IU DAILY 07/06 1000 AC 07/18 PO 1144 Cyanocobalamin 1,000 MCG DAILY 07/06 1000 AC 07/18 PO 1144 Docusate Sodium 100 MG DAILY 07/12 1215 DC 07/17 PO 1229 Enoxaparin Sodium 30 MG DAILY 07/13 1000 AC 07/18 SC 1143 Guaifenesin 10 ML .STK-MED ONE 07/18 0147 DC PO 07/18 0148 Guaifenesin 10 ML .STK-MED ONE 07/17 1645 DC PO 07/17 1646 Guaifenesin 10 ML Q6H 07/05 2315 AC 07/18 PO 0649 Ipratropium Downing 2.5 ML BID PRN 07/13 1008 AC 07/14 INH 1050 Magnesium Oxide 200 MG DAILY 07/17 1000 DC 07/17 PO 1229 Metoprolol Tartrate 25 MG BID 07/09 0530 AC 07/18 PO 1143 Olanzapine 2.5 MG Q8P PRN 07/05 2330 DC 07/16 PO 0239 Phosphate 250 MG PC AND AT BEDTIME 07/09 1300 AC 07/18 PO 1143 Polyethylene Glycol 17 GM DAILY 07/12 1211 DC 07/14 PO 0838 Senna/Docusate Sodium 2 TAB DAILY 07/12 1211 DC 07/17 PO 1229 Sodium Chloride 500 ML ONCE ONE 07/18 1030 AC 07/18 IV 07/18 2028 1132 Sodium Polystyrene 60 ML ONCE ONE 07/17 1914 DC 07/17 Sulfonate PO 07/17 Tamsulosin HCl 0.4 MG DAILY 07/09 165 AC 07/18 PO 1144 Vital Signs & I&O Last 24 Hrs of Vitals and I&O: Vital Signs Date Time Temp Pulse Resp B/P Pulse O2 O2 Flow FiO2 Ox Delivery Rate 07/18 1144 66 130/64 07/18 1143 66 130/64 07/18 0835 97.9 66 18 130/64 91 Room Air 07/18 0033 98.0 64 20 140/80 95 / 0000 95 Room Air 07/17 2114 64 146/70 07/17 1600 93 Room Air 07/17 1555 98.1 66 19 120/80 93 Intake & Output 07/18 1600 07/18 0800 07/18 0000 Intake Total 50 400 Output Total 250 100 Balance -200 300 Intake, IV 0 Intake, Oral 50 400 Number 1 1 Bowel Movements Output, Urine 250 100 Impression/Plan Impression/Plan Impression/Plan: Physical Exam General Appearance delirious not oriented Skin No Rashes, No Breakdown HEENT Atraumatic, PERRLA Neck Supple Cardiovascular Regular Rate, Normal S1, Normal S2, No Murmurs Lungs Normal Air Movement, bilateral rhonchi present, crackles both bases Abdomen Normal Bowel Sounds, Soft, No Tenderness Neurological Sensation Intact Extremities No Clubbing, No Cyanosis, unilateral edema present on the right leg Vascular Pulses Symmetrical CT CHEST ABD AND PELVIS IMPRESSION: 1. Small bilateral pleural effusions with overlying minimal dependent compressive atelectasis. Patchy groundglass opacities along the periphery of the right upper and right middle lobes. This could reflect a mild acute or developing infectious or inflammatory process. 2. No acute findings within the abdomen or pelvis. No organizing intra-abdominal or pelvic fluid collections. The gallbladder is physiologically distended but otherwise unremarkable. There are no visible radiopaque gallstones. 3. A moderate amount of retained stool throughout the colon, indicative of constipation. Feculent material is also identified within loops of small bowel, which is indicative of delayed intestinal transit. 4. Mechanical hardware within the right hip and proximal right femur, related to recent orthopedic surgery. 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 No visible organizing fluid collections to suggest abscess. No immediate mechanical hardware complications. 07/10 IMPRESSION This is a gentleman with chronic kidney disease, previous ischemic heart disease with previous NV, hyperlipidemia, peripheral vascular disease, previous AAA repair, who is on antiplatelet therapy for peripheral vascular disease, hypertension hyperlipidemia now here with a hip fracture s/p surg on 05/30, subsequently had delirium for very prolonged period due to multiple factors, previous urinary retention with UTI with previous urology evaluation, now comes in with * SLowly resolving Significant delirium with worsening dementia, with proteus bacterimia due to urological origin. PT has rhodococci in the sputum with prob pna aswell but seems less likely. 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) * Previous urinary retention on Flomax with previous post void residue being high, was followed by urology, with recurrent uti * CKD stage 3 now with mild worsening renal function prob prerenal * Previous QTC prolongation (with occasional use of atypical antipsycotics, this was used as a last resort family agreed to rx with these meds aswell as they wish more of symptomatic care) * Recent hip fracture, on and off constipation subsequently * Mild cognitive impairment with worsening mental status in the past few months, 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 Patient was on antiplatelet therapy before and this needs to be started when he is able to take po. When he is off lovenox as he is high risk for bleeding * IHD with cardiomyopathy low ef * Hypertension and hyperlipidemia stable, Ischemic heart disease hypertension stable, Previous aaa * Sig djd cspine * Mild hyperkalemia REC COnt abx per ID Check mag and potassium later today OOB to chair PT eval and ambulate if able Chlorhexide mouth wash bid daily Keep hob up Olanzapine only for severe delirium, if not hold it COnt flomax Prog poor pt is dnr and dni Discussed with family in detail and ok to dc
[2016-07-18] MEDS ORDERED: PERIDEX473 ML PO (14:02)
--- NOTE | 2016-07-18 15:42 | PN- Infect Dx ---
Subjective Subjective: Afebrile without complaints Objective Last 24 Hrs of Vital Signs/I&O Vital Signs Date Time Temp Pulse Resp B/P Pulse O2 O2 Flow FiO2 Ox Delivery Rate 07/18 1443 90 Room Air Room Air 07/18 1144 66 130/64 07/18 1143 66 130/64 07/18 0835 97.9 66 18 130/64 91 Room Air 07/18 0800 95 Room Air 07/18 0033 98.0 64 20 140/80 95 02 0000 95 Room Air 07/17 2114 64 146/70 07/17 1600 93 Room Air 07/17 1555 98.1 66 19 120/80 93 Intake & Output 07/18 1600 07/18 0800 07/18 0000 Intake Total 400 50 400 Output Total 50 250 100 Balance 350 -200 300 Intake, IV 0 Intake, Oral 400 50 400 Number 2 1 Bowel Movements Output, Urine 50 250 100 Physical Exam Other Physical Findings: He is more awake and alert in no acute distress Lungs decreased breath sounds bilaterally Heart regular rhythm with no murmur Abdomen is soft, nontender with positive bowel sounds Extremities no cyanosis, clubbing or edema Results Last 24 Hours of Lab Results: Laboratory Tests 07/18 07/17 0630 1740 Chemistry Sodium (137 - 145 mmol/L) 142 Potassium (3.5 - 5.1 mmol/L) 4.8 5.3 H Chloride (98 - 107 mmol/L) 110 H Carbon Dioxide (22 - 30 mmol/L) 25 Anion Gap (5 - 16) 8 BUN (9 - 20 mg/dL) 15 Creatinine (0.7 - 1.2 mg/dL) 1.4 H Estimated GFR (>60 ml/min) 48 L BUN/Creatinine Ratio (7 - 25 %) 10.7 Magnesium (1.6 - 2.3 mg/dL) 2.2 Last 24 Hours of Wilner Results: Stool C. difficile July 15 negative Assessment/Plan Impression: Stable with temperatures and white blood cell count remaining normal on Amoxicillin Day 13 of treatment for Proteus sepsis, most likely of urologic origin, though a pulmonary process is also possible. Suggestion: 1. Discontinue Amoxicillin in the a.m. and then follow off antibiotics
[2016-07-18 16:29] VITALS: BP 128/64
[2016-07-18 17:09] VITALS: BP 128/64
== END 2016-07-18 17:34 | DRG 871 ==
LOC: ENRESERVDT → ENRESERVTM → ERH 14:19 → CRI 17:29 → 1NO 17:29 → 2NA 17:29 → ENPENDDIS 17:29 → ERHI 17:29 → 2NA 07-06 01:40 → CRI 07-06 21:12 → 1NO 07-11 19:55 → 2NB 07-16 16:53
PROVIDERS: Dermatology; Internal Medicine; Internal Medicine Cardiovascular Disease; Internal Medicine Pulmonary Disease; Physician Assistant; Preventive Medicine Public Health & General Preventive Medicine; Student in an Organized Health Care Education/Training Program; ADMIT Internal Medicine
DX: A41.59 Other Gram-negative sepsis (principal); J69.0 Pneumonitis due to inhalation of food and vomit; N17.9 Acute kidney failure, unspecified; R64 Cachexia; K82.1 Hydrops of gallbladder; F05 Delirium due to known physiological condition; N39.0 Urinary tract infection, site not specified; I45.2 Bifascicular block; S01.01XA Laceration without foreign body of scalp, initial encounter; N18.9 Chronic kidney disease, unspecified; Z68.25 Body mass index [BMI] 25.0-25.9, adult; I25.5 Ischemic cardiomyopathy; B96.4 Proteus (mirabilis) (morganii) as the cause of diseases classified elsewhere; I25.10 Atherosclerotic heart disease of native coronary artery without angina pectoris; I13.10 Hypertensive heart and chronic kidney disease without heart failure, with stage 1 through stage 4 chronic kidney disease, or unspecified chronic kidney disease; Z87.891 Personal history of nicotine dependence; Z95.5 Presence of coronary angioplasty implant and graft; I71.4 Abdominal aortic aneurysm, without rupture; I73.9 Peripheral vascular disease, unspecified; N40.0 Benign prostatic hyperplasia without lower urinary tract symptoms; W18.30XA Fall on same level, unspecified, initial encounter; Y92.89 Other specified places as the place of occurrence of the external cause; E78.5 Hyperlipidemia, unspecified; Z66 Do not resuscitate
CPT/HCPCS: 1NP; 2NBP; CCU; ERO; 36415; 73030-LT; 74177; 81001; 82436; 87040; 87070; 87071; 87086; 87449; 87450; 87804; 87804-59; 93005; 93010; 93306; 94799; 96361; 96365; 97110-GO; 97112-GO; 97116-GO; 97162-GP; 97164-GP; 97530-GO; C1769; J0131; J0456; J0696; J0713; J1644; J1650; J1940; J3370; J3490; J7040; J7042; J7060

== ENCOUNTER 2016-08-21 16:16 | Emergency (ER) | payer OTHER ==
[~2016-08-21] VITALS: Ht 162.6 cm; Wt 67.6 kg
[~2016-08-21 16:16] MED LIST changes: +ACEPHEN650 M1 PR; +AMOXICILLIN500 M2 PO; +DULCOLAX10 M1 RC; +FLEET ENEMA133 ML RC; +GERI-TUSSI100 MG/5 M PO; +IPRAT-ALBUT 0.5-3 ML INH; +MILK OF MA400 MG/52 PO; +PERIDEX473 ML PO; +PLAVIX75 M1 PO; +TYLENOL325 M1 PO
--- NOTE | 2016-08-21 16:32 | ED GENERAL ADULT ---
History of Present Illness General Chief Complaint: Dyspnea (COPD, CHF, Other) Stated Complaint: BIBA FROM SNF SOB/WHEEZING Source: patient, family, EMS Exam Limitations: confusion, dementia Vital Signs & Intake/Output Vital Signs & Intake/Output Vital Signs Date Time Temp Pulse Resp B/P Pulse O2 O2 Flow FiO2 Ox Delivery Rate 08/21 1835 97.4 74 20 115/56 95 Room Air 08/21 1653 92 08/21 1617 97.0 82 22 106/66 96 Room Air ED Intake and Output 08/22 0000 08/21 1200 Intake Total Output Total Balance Patient 149 lb Weight Allergies Coded Allergies: oxycodone (From PERCOCET) (HALLUCINATIONS 05/30/16) Reconcile Medications Acetaminophen (Tylenol) 325 MG TABLET 2 TAB PO Q6H PRN PAIN/TEMP>101 ( Reported) last given 07/18/16 @ 0900 Acetaminophen (Acephen) 650 MG SUPP.RECT 1 SUPP MT Q6H PRN PAIN/TEMP>101 ( Reported) Atorvastatin Calcium 40 MG TABLET 1 TAB PO DAILY CHOLESTEROL (Reported) Bisacodyl (Dulcolax) 10 MG SUPP.RECT 1 SUP RC DAILY PRN CONSTIPATION ( Reported) Carvedilol (Coreg) 3.125 MG TABLET 6.25 MG PO BID BLOOD PRESSURE Chlorhexidine Gluconate (Peridex) 0.12 % MOUTHWASH 15 ML PO BID mouthwash Cholecalciferol (Vitamin D3) 1,000 UNIT TABLET 1 TAB PO DAILY bone strength ( Reported) Clopidogrel Bisulfate (Plavix) 75 MG TABLET 1 TAB PO DAILY A FIB Cyanocobalamin (Vitamin B-12) 1,000 MCG TABLET 1 TAB PO DAILY SUPPLEMENT ( Reported) Divalproex Sodium (Depakote Sprinkle) 125 MG CAP.SPRINK 1 CAP PO 1700 MENTAL HEALTH (Reported) Divalproex Sodium (Depakote Sprinkle) 125 MG CAP.SPRINK 250 MG PO QHS MENTAL HEALTH (Reported) Guaifenesin (Kimber-Tussin) 100 MG/5 ML LIQUID 10 ML PO Q6H UNKNOWN (Reported) Ipratropium/Albuterol Sulfate (Iprat-Albut 0.5-3(2.5) MG/3 Ml) 0.5 MG-3 MG (2.5 MG BASE)/3 ML AMPUL.NEB 3 ML INH 4XDAILY RESPIRATORY (Reported) Magnesium Hydroxide (Milk Of Magnesia) 400 MG/5 ML ORAL.SUSP 15 ML PO Q3D STOOL SOFTENER (Reported) Na Phos,M-B/Na Phos,Di-Ba (Fleet Enema) 19 GRAM-7 GRAM/118 ML ENEMA 1 E RC DAILY PRN CONSTIPATION (Reported) Olanzapine 2.5 MG TABLET 1 TAB PO Q12P PRN AGITATION Tamsulosin HCl (Flomax) 0.4 MG CAP.ER.24H 1 TAB PO 1700 BPH Triage Note: BIBA FORM [facility], SENT FOR EVALUATION FOR SOB, WAS GIVEN 1 NEBULIZER TX. ALERT, MOANING, RESISTIVE TO VITAL SIGNS, ARMS CONTRACTED. HAS CONGESTED COUGH. 02 SAT 96%. Triage Nurses Notes Reviewed? yes HPI: 86 yo M PMh HTN, HLD, CAD, HFrEF, CKD, CVA/TIA presenting with altered mental status, wheezing, shortness of breath. Per daughter, for the past 2-3 days patient has been more somnolent, frequently dozing off, less alert and interactive with family when visiting, appears to be associated with starting depakote 3 days ago for agitation (agitated and sundowning at night, sleeping all day.). Patient is recovering at [facility] for recent aspiration PNA s/p abx treatment, has had wheezing, treated with albuterol nebs q4hrs (no Hx of COPD). This afternoon daughter and son went to visit patient, noted him to be somnolent and less interactive, significant wheezing, C/O SOB, requested ED evaluation. Per ECG paperwork normal RR and room air O2 sat. Daughter has noted cough and increased symmetric BLE swelling. Patient is audibly wheezing, but has no complaints at this time, denies fevers, chills, chest pain, SOB, palpitations, AP, nausea. (MARLENA VASQUEZ,LUPE) Past History Travel History Traveled to [place] past 21 day No Medical History Any Pertinent Medical History? see below for history Neurological: CVA, TIA EENT: NONE Cardiovascular: hypertension, hyperlipidemia, myocardial infarction, PVD, peripheral vascular disease HEART FAILURE Respiratory: pulmonary nodule? Gastrointestinal: AAA Hepatic: NONE Renal: benign prost hyperplasia, chronic kidney disease Musculoskeletal: falls, fracture Psychiatric: NONE Endocrine: NONE Blood Disorders: NONE Cancer(s): NONE RIDES ATTENDANT/Reproductive: NONE History of MRSA: No History of VRE: Yes History of CDIFF: No Influenza Vaccine: 03/12/16 Surgical History Surgical History: bilateral knee replacements status post stent for AAA status post DVIU for urethral stricture status post recent right hip ORIF Psychosocial History Who do you live with Other (see notes) Services at Home Nursing What is your primary language Serbian Family History Family History, If Any: FATHER Relation not specified for: FH: prostate cancer Hx Contributory? No (LUPE MENDIOLA MD) Review of Systems Review of Systems Constitutional: Denies: chills, fever, malaise, weakness. EENTM: Reports: no symptoms. Respiratory: Reports: cough, wheezing. Cardiovascular: Denies: chest pain, orthopena, palpitations, peripheral edema, syncope. GI: Reports: no symptoms. Genitourinary: Reports: no symptoms. Musculoskeletal: Reports: no symptoms. Skin: Reports: no symptoms. Neurological/Psychological: Reports: no symptoms. Hematologic/Endocrine: Reports: no symptoms. Immunologic/Allergic: Reports: no symptoms. All Other Systems: Reviewed and Negative (LUPE MENDIOLA MD) Physical Exam Physical Exam General Appearance: well developed/nourished, no apparent distress, Sleeping, easily arousible Head: atraumatic, normal appearance Eyes: Bilateral: normal appearance. Ears, Nose, Throat: normal pharynx, normal ENT inspection Neck: normal inspection, supple, full range of motion Respiratory: no respiratory distress, wheezing Cardiovascular: regular rate/rhythm, normal peripheral pulses Gastrointestinal: normal bowel sounds, soft, non-tender Back: normal inspection Extremities: Symmmetric BLE pitting edema Neurologic/Psych: no motor/sensory deficits, Sleeping, easliy aroused Core Measures ACS in differential dx? Yes CVA/TIA Diagnosis: No Severe Sepsis Present: No Septic Shock Present: No (LUPE MENDIOLA MD) Progress Differential Diagnoses I considered the following diagnoses in my evaluation of the patient: [URI, PNA, bronchitis, COPD, CHF decompensation, low concern for ACS or PE. ] Plan of Care: Orders Procedure Date/time Status B-TYPE NATRIURETIC PEP (BNP) 08/21 1755 Complete Add-on Test (ER Only) 08/21 1721 Active TROPONIN LEVEL 08/21 1633 Complete CBC WITHOUT DIFFERENTIAL 08/21 1633 Complete BASIC METABOLIC PANEL 08/21 1633 Complete EKG 08/21 1620 Active Laboratory Tests 08/21/16 1755: Anion Gap 9, Estimated GFR 41 L, BUN/Creatinine Ratio 22.5, Glucose 96, Calcium 9.8, Troponin I < 0.01, Uyj-Q-Lalngohaqtk Pept 861 H, CBC w Diff MAN DIFF ORDERED, RBC 3.37 L, MCV 98.7 H, MCH 32.5 H, RDW 15.9 H, MPV 7.8, Gran % 55.1, Lymphocytes % 19.1 L, Monocytes % 9.5 H, Eosinophils % 16.0 H, Basophils % 0.3, Absolute Granulocytes 3.5, Segmented Neutrophils 50, Absolute Lymphocytes 1.2, Lymphocytes 23, Monocytes 9, Absolute Monocytes 0.6, Eosinophils 17 H, Absolute Eosinophils 1.0, Basophils 1, Absolute Basophils 0, Platelet Estimate ADEQUATE, Polychromasia 1+, Hypochromic-Microcytic 2+, Anisocytosis 1+, Macrocytic Cells 1+, Ovalocytes 1+, Schistocytes 1+, PUBS MCHC 32.9 L Physician MDM: 86 yo M PMH HTN, HLD, HFrEF presenting with somnolence, wheezing, C/O SOB at ECF, no complaints in ED. VSS, saturating well on RA, remainder of exam as above. DDx: [URI, PNA, bronchitis, COPD, CHF decompensation, low concern for ACS or PE. ECG sinus rhythm, non-ischemic, troponin negative. Bedside U/S with EF 30-50%, no evidence of right heart strain, no B-lines or pleural effusions. CXR without new consolidation suggestive of aspiration PNA, CBC without leukocytosis, given no fevers or increased sputum production, will hold abx for now. Given duoneb without significant improvement in wheezing, though during ED stay wheezing would spontaneously resolved and reoccur, patient's O2 sats remained normal on RA and he did not appear to be in respiratory distress. BNP 800, CXR and U/S without pulmonary edema, no need for diuresis at this time. BMP with elevated Cr at baseline per ECF paperwork. Discussed admission for monitoring vs. discharge with patients family, feels comfortable with patient returning to ECF (given that he would likely have worse sundowning in hospital and little to be gained by admission.) Family will discuss agents for agitation with prescribing MD, consider stopping depakote. Given no acute pathlology, patient D/Dustin back to ECF with return precautions. D/W Dr. Bahena. (MARLENA VASQUEZ,LUPE) Initial ED EKG: normal sinus rhythm (LUPE MENDIOLA MD) Departure Departure Disposition: ACUTE REHAB FACILITY Condition: Stable Clinical Impression Primary Impression: Wheezing Referrals: NAY LARSON MD (PCP/Family) Departure Forms: Customer Survey General Discharge Information (LUPE MENDIOLA MD) Resident Co-Sign Statement Statement: ED Attending supervision documentation- [X] I saw and evaluated the patient. I have also reviewed all the pertinent lab results and diagnostic results. I agree with the findings and the plan of care as documented in the Resident's documentation. [X] I have reviewed the ED Record and agree with the Resident's documentation. [] Additions or exceptions (if any) to the Resident's note and plan are summarized below: [] (KEEGAN VASQUEZ,ANDRÉS) Critical Care Note Critical Care Note Critical Care Time: non-applicable (LUPE MENDIOLA MD)
[2016-08-21 17:12] LABS: ABSOLUTE BASOPHIL COUNT 0 /CUMM (0.0-0.2); ABSOLUTE GRANULOCYTE CT 3.5 /CUMM (1.4-6.5); ABSOLUTE LYMPH COUNT 1.2 /CUMM (1.2-3.4); ABSOLUTE MONOCYTE COUNT 0.6 /CUMM (0.10-0.60); BASOPHIL % 0.3 % (0.0-2.0); GRANULOCYTE % 55.1 % (42.2-75.2); HEMATOCRIT 33.3 % (42-52); MEAN CORPUSCULAR HGB 32.5 PG (27.0-31.0); MEAN CORPUSCULAR HGB CONC 32.9 G/DL (33.0-37.0); MEAN CORPUSCULAR VOLUME 98.7 FL (80.0-94.0); MEAN PLATELET VOLUME 7.8 FL (7.4-10.4); PLATELET COUNT 215 /CUMM (130-400); RBC DISTRIBUTION WIDTH 15.9 % (11.5-14.5); RED BLOOD CELL CT 3.37 /CUMM (4.70-6.10); WHITE BLOOD CELL COUNT 6.4 /CUMM (4.8-10.8)
--- NOTE | 2016-08-21 18:00 | RADIOLOGY REPORT ---
EXAMINATION: XR PORTABLE CHEST CLINICAL INFORMATION: Cough, hypoxia. COMPARISON: CT chest with contrast 07/10/2016. TECHNIQUE: Portable AP view of the chest was obtained. FINDINGS: The lungs are mildly hypoinflated. There is minimal dependent bibasilar atelectasis, left greater than right. There are questionable airspace opacities within the left lung base. No pleural effusions or pneumothoraces are identified. Cardiomediastinal contours are stable. Soft tissues are unremarkable. No acute osseous abnormality is identified. IMPRESSION: Pulmonary hypoinflation. Minimal dependent bibasilar atelectasis, left greater than right, with questionable patchy airspace opacities within the left lung base. This could reflect atelectasis. Superimposed infection cannot be excluded. Consider correlation with PA and lateral chest x-ray.
[2016-08-21] MEDS ORDERED: DEPAKOTE SPRIN125 M1 PO ×2 (18:05)
[2016-08-21 18:35] VITALS: BP 115/56
== END 2016-08-21 20:29 ==
LOC: ERH 16:16
PROVIDERS: Student in an Organized Health Care Education/Training Program
DX: R06.2 Wheezing (principal)
CPT/HCPCS: 1263; 93005; 93010

== ENCOUNTER 2016-10-30 08:59 | Emergency (ER) | payer OTHER ==
[~2016-10-30] VITALS: Ht 172.7 cm; Wt 72.6 kg
[~2016-10-30 08:59] MED LIST changes: +DEPAKOTE SPRIN125 M1 PO
--- NOTE | 2016-10-30 09:08 | ED UPPER/LOWER EXTREMITY COMPL ---
History of Present Illness General Chief Complaint: Upper Extremity Problem Stated Complaint: BIBA R ELBOW PAIN Source: patient, family, old records, EMS Exam Limitations: no limitations Vital Signs & Intake/Output Vital Signs & Intake/Output Vital Signs Date Time Temp Pulse Resp B/P B/P Pulse O2 O2 Flow FiO2 Mean Ox Delivery Rate 10/30 1142 97.8 69 19 118/58 95 Room Air 10/30 1011 94 10/30 0908 97.2 71 20 124/54 94 Room Air Allergies Coded Allergies: oxycodone (From PERCOCET) (HALLUCINATIONS 05/30/16) Reconcile Medications Acetaminophen (Tylenol) 325 MG TABLET 2 TAB PO Q6H PRN PAIN/TEMP>101 ( Reported) last given 07/18/16 @ 0900 Acetaminophen (Acephen) 650 MG SUPP.RECT 1 SUPP SC Q6H PRN PAIN/TEMP>101 ( Reported) Atorvastatin Calcium 40 MG TABLET 1 TAB PO DAILY CHOLESTEROL (Reported) Bisacodyl (Dulcolax) 10 MG SUPP.RECT 1 SUP RC DAILY PRN CONSTIPATION ( Reported) Carvedilol (Coreg) 3.125 MG TABLET 6.25 MG PO BID BLOOD PRESSURE Chlorhexidine Gluconate (Peridex) 0.12 % MOUTHWASH 15 ML PO BID mouthwash Cholecalciferol (Vitamin D3) 1,000 UNIT TABLET 1 TAB PO DAILY bone strength ( Reported) Clopidogrel Bisulfate (Plavix) 75 MG TABLET 1 TAB PO DAILY A FIB Cyanocobalamin (Vitamin B-12) 1,000 MCG TABLET 1 TAB PO DAILY SUPPLEMENT ( Reported) Divalproex Sodium (Depakote Sprinkle) 125 MG CAP.SPRINK 1 CAP PO 1700 MENTAL HEALTH (Reported) Divalproex Sodium (Depakote Sprinkle) 125 MG CAP.SPRINK 250 MG PO QHS MENTAL HEALTH (Reported) Guaifenesin (Kimber-Tussin) 100 MG/5 ML LIQUID 10 ML PO Q6H UNKNOWN (Reported) Ipratropium/Albuterol Sulfate (Iprat-Albut 0.5-3(2.5) MG/3 Ml) 0.5 MG-3 MG (2.5 MG BASE)/3 ML AMPUL.NEB 3 ML INH 4XDAILY RESPIRATORY (Reported) Magnesium Hydroxide (Milk Of Magnesia) 400 MG/5 ML ORAL.SUSP 15 ML PO Q3D STOOL SOFTENER (Reported) Na Phos,M-B/Na Phos,Di-Ba (Fleet Enema) 19 GRAM-7 GRAM/118 ML ENEMA 1 E RC DAILY PRN CONSTIPATION (Reported) Naproxen 375 MG TABLET 1 TAB PO BID PRN PAIN with food Olanzapine 2.5 MG TABLET 1 TAB PO Q12P PRN AGITATION Tamsulosin HCl (Flomax) 0.4 MG CAP.ER.24H 1 TAB PO 1700 BPH Triage Note: 86 YO MALE BIBA FROM [facility]. PT C/O R ELBOW PAIN S/P CLOSING CURTAINS YESTERDAY "HEARD A POP" TODAY PAIN IS BETTER THEN YESTERDAY Triage Nurses Notes Reviewed? yes Onset: Abrupt Duration: better Timing: recent history Severity: moderate Severity Numbers: 5 HPI: Patient is a 86-year-old male with a past medical history of coronary artery disease, CHF, hypertension, COPD, BPH, CVA- ON PLAVIX who presents emergency room brought in by ambulance from [facility] for concerns that yesterday patient when his normal state of health at baseline where he was using his right upper extremity to pull up blinds where he noticed acute onset of sharp stabbing right arm pain AND A POPPING SENSATION TO HIS ARM. Patient is right arm dominant. Patient does state that his symptoms today are improved however the staff at the staff were concerned of his persistent pain. Patient does state that he points to his entire arm, MOST LOCALIZED TO HIS ELBOW with pain and states that it is made worse with movement. Patient denies any worsening shortness of breath as at baseline and which daughter also presents to the emergency room confirming the patient always coughs patient denies any fever chills chest pain nausea vomiting extremity paresthesia or swelling. (LEOBARDO COHEN,SIDDHARTH) Past History Travel History Traveled to [place] past 21 day No Medical History Any Pertinent Medical History? see below for history Neurological: CVA, TIA EENT: NONE Cardiovascular: hypertension, hyperlipidemia, myocardial infarction, PVD, peripheral vascular disease HEART FAILURE Respiratory: pulmonary nodule? Gastrointestinal: AAA Hepatic: NONE Renal: benign prost hyperplasia, chronic kidney disease Musculoskeletal: falls, fracture Psychiatric: NONE Endocrine: NONE Blood Disorders: NONE Cancer(s): NONE WHARF TENDER/Reproductive: NONE History of MRSA: No History of VRE: Yes History of CDIFF: No Surgical History Surgical History: bilateral knee replacements status post stent for AAA status post DVIU for urethral stricture status post recent right hip ORIF Psychosocial History Who do you live with Other (see notes) Services at Home Nursing What is your primary language Upper Sorbian Tobacco Use: Never used Family History Family History, If Any: FATHER Relation not specified for: FH: prostate cancer Hx Contributory? No (SIDDHARTH PADRON) Review of Systems Review of Systems Constitutional: Reports: no symptoms. EENTM: Reports: no symptoms. Respiratory: Reports: see HPI. Cardiovascular: Reports: no symptoms. Gastrointestinal/Abdominal: Reports: no symptoms. Genitourinary: Reports: no symptoms. Musculoskeletal: Reports: see HPI, joint pain, muscle pain. Skin: Reports: no symptoms. Neurological/Psychological: Reports: no symptoms. Hematologic/Endocrine: Reports: no symptoms. Immunological: Reports: no symptoms. All Other Systems: Reviewed and Negative (SIDDHARTH PADRON) Physical Exam Physical Exam General Appearance: no apparent distress, alert Neurologic/Tendon: normal sensation, normal tendon functions, responds to pain, no evidence tendon injury, no pulse deficit Skin: intact, normal color, warm/dry Comments: Well-developed well-nourished person in no acute distress HEENT: Normal EENT exam, Neck: Supple, no lymphadenopathy, normal range of motion without pain or tenderness Back: Nontender, no CVA tenderness. Cardiovascular: Regular rate and rhythms no murmurs rubs or gallops, normal JVP Respiratory: Chest nontender. No respiratory distress. MILD BILATERAL WHEEZING Abdomen: Soft, nontender nondistended, no appreciable organomegaly. Normal bowel sounds. No ascites Extremity: No edema, no calf tenderness to palpation, normal and equal pulses. Right arm normal inspection tenderness noted to mid humerus elbow and wrist nontender upon passive range of motion of shoulder elbow and wrist pain is elicited upon right shoulder flexion right shoulder elbow flexion and right wrist extension and flexion. Dermatomes intact. Radial pulse +2 Neuro: Alert oriented x3, motor sensory normal, Skin: No appreciable rash on exposed skin, skin is warm and dry. Psych: Mood and affect is normal, memory and judgment is normal. (SIDDHARTH PADRON) Progress Differential Diagnosis: arterial insufficiency, compartment syndrome, contusion, dislocation, DVT, fracture, gout, septic arthritis, sprain, tendon injury, copd, PNEUMONIA Plan of Care: Orders Procedure Date/time Status Durable Medical Equipment 10/30 1045 Active Current Medications Sig/Chirag Start time Last Medication Dose Stop Time Status Admin Tramadol HCl 50 MG ONCE ONE 10/30 914 CAN (Ultram) 10/31 915 Patient on initial examination has no concerns of DVT or vascular involvement of his extremity and is eliciting pain upon active range of motion to the right upper extremity in which x-rays will be obtained. Patient does have audible wheezing however oxygen saturation is at baseline per daughter. Patient does show intermittent episodes of coughing which chest x-ray will be obtained and nebulizer will be obtained. Patient was given an nebulizer prior to arrival. 10/30/2016 10:03:27 AM patient does have improvement of symptoms after medications were administered Chest x-ray was unremarkable as was patient's right upper extremity x-ray showing no concerns of acute osseous injury. Patient does use a walker at all times for fall prevention and gait instability and which the daughter is concerned of patient's well-being hence he lives in assisted care living and patient now has pain to the right upper extremity for fall prevention while using a walker. Patient was supervised by me with ambulation with steady gait and patient states that he had no pain with right upper extremity movement stabilization however daughters concerned of patient being left alone at home and fall risk. I will discussed patient with case management I initially discussed with case management that patient due to health insurance required a three-day stay in the hospital FOR SHORT TERM REHAB PLACEMENT, in which the family declines this plan for Jasvir I discussed patient with case management who also evaluated patient in which the family felt comfortable for patient to return back to his private residence assisted care living and to receive home health care. This was established by case management W 10 was filled out. Patient was given a shoulder immobilizer for support instability. Post neurovascular was intact. I strongly advised patient to continue using the walker for fall prevention. Discussed disposition plan with Dr. Santana who agrees (LEOBARDO COHEN,SIDDHARTH) Diagnostic Imaging: Viewed by Me: Radiology Read. Radiology Impression: no fracture Comments: PATIENT: JASVIR HACKETT PRESENT AGE: 86 PATIENT ACCOUNT NO: [id number] : 30 LOCATION: [facility] ORDERING PHYSICIAN: SIDDHARTH COHEN SERVICE DATE: 10/30/16 EXAM TYPE: RAD - XRY-ELBOW 3 OR MORE VIEWS, R; XRY-SHOULDER COMPLETE-RIGHT; XRY- WRIST COMPLETE-RIGHT EXAMINATION: XR SHOULDER, RIGHT XR ELBOW, RIGHT XR WRIST, RIGHT CLINICAL INFORMATION: Right arm pain. COMPARISON: None TECHNIQUE: Right shoulder 3 views; right elbow 3 views; right wrist 3 views. FINDINGS: RIGHT SHOULDER: Normal osseous mineralization. The acromioclavicular and glenohumeral joint alignments are normal. There are osteoarthritic changes at the glenohumeral joint with narrowing of the joint space, subarticular sclerosis and irregularity of the articular margins. No evidence of fracture or dislocation. No soft tissue calcifications are noted. There is blunted appearance of the lateral end of the right clavicle, could be related to prior surgery or trauma, recommend clinical correlation. Visualized right hemithorax is unremarkable. RIGHT ELBOW: Normal osseous mineralization. There is no evidence of fracture or dislocation. Osteophytic spurring is noted from the bilateral distal humeral epicondyles and olecranon process. The articular margins otherwise appear unremarkable. No elbow joint effusion. RIGHT WRIST: Normal osseous mineralization. Bones are in normal alignment. No significant abnormality of the bones or joints is noted. Vascular calcifications. IMPRESSION: 1. No acute osseous abnormality in the right shoulder, right elbow and right wrist. 2. 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 3. Mild enthesopathic changes in the right elbow. 4. No significant osseous abnormality in the right wrist. DICTATED BY: CAITLYN VASQUEZ,AIDE DATE/TIME DICTATED:10/30/161006 PLASTER HELPER:JASMIN PATIENT: JASVIR HACKETT PRESENT AGE: 86 PATIENT ACCOUNT NO: [id number] : 30 LOCATION: [facility] ORDERING PHYSICIAN: SIDDHARTH COHEN SERVICE DATE: 10/30/16 EXAM TYPE: RAD - XRY-CHEST XRAY, PA AND LATERAL EXAMINATION: XR CHEST CLINICAL INFORMATION: Chronic obstructive pulmonary disease. COMPARISON: Chest x-ray of 10/21/2016 and multiple previous chest x-rays dated back to 07/05/2016. CT chest of 07/10/2016. TECHNIQUE: AP and lateral views of the chest are obtained. FINDINGS: The cardiomediastinal silhouette is stable with mild cardiomegaly. The aorta is mildly ectatic. The lungs are mildly hyperinflated. No focal consolidation, changes of congestion or pleural effusions are seen. No pneumothorax. No displaced rib fractures. Mild osteopenia of the spine with mild degenerative changes. IMPRESSION: Mildly hyperinflated lungs. No acute pulmonary process. DICTATED BY: AIDE BRADY MD DATE/TIME DICTATED:10/30/161014 PLASTER HELPER:JASMIN DATE/TIME TRANSCRIBED:10/30/161014 (SIDDHARTH PADRON) Departure Departure Disposition: HOME OR SELF CARE Condition: Stable Clinical Impression Primary Impression: Right arm pain Secondary Impressions: COPD (chronic obstructive pulmonary disease) Referrals: MARSHA VASQUEZ,NAY Egan (PCP/Family) NABIL VASQUEZ,ROSMERY Additional Instructions: As discussed you have been set up with home health services especially physical therapy for further evaluation treatment. Begin using the shoulder immobilizer for discomfort and stability. Begin icing the area for pain 20 minutes every 2 hours. Begin the prescription Naprosyn for pain and inflammation. If symptoms worsen return to emergency room. Continue to use THE walker for fall prevention Departure Forms: Customer Survey General Discharge Information Prescriptions: Current Visit Scripts Naproxen 1 TAB PO BID PRN PAIN #20 TAB with food (SIDDHARTH PADRON) PA/HEREDITARY CANCER PROGRAM COORDINATOR Co-Sign Statement Statement: ED Attending supervision documentation- [] I saw and evaluated the patient. I have also reviewed all the pertinent lab results and diagnostic results. I agree with the findings and the plan of care as documented in the PA's/HEREDITARY CANCER PROGRAM COORDINATOR's documentation. [X] I have reviewed the ED Record and agree with the PA's/HEREDITARY CANCER PROGRAM COORDINATOR's documentation. [] Additions or exceptions (if any) to the PAs/HEREDITARY CANCER PROGRAM COORDINATOR's note and plan are summarized below: [] (NAREN VASQUEZ,UCHE Rodriguez)
--- NOTE | 2016-10-30 10:32 | RADIOLOGY REPORT ---
EXAMINATION: XR CHEST CLINICAL INFORMATION: Chronic obstructive pulmonary disease. COMPARISON: Chest x-ray of 10/21/2016 and multiple previous chest x-rays dated back to 07/05/2016. CT chest of 07/10/2016. TECHNIQUE: AP and lateral views of the chest are obtained. FINDINGS: The cardiomediastinal silhouette is stable with mild cardiomegaly. The aorta is mildly ectatic. The lungs are mildly hyperinflated. No focal consolidation, changes of congestion or pleural effusions are seen. No pneumothorax. No displaced rib fractures. Mild osteopenia of the spine with mild degenerative changes. IMPRESSION: Mildly hyperinflated lungs. No acute pulmonary process.
--- NOTE | 2016-10-30 10:33 | RADIOLOGY REPORT ---
EXAMINATION: XR SHOULDER, RIGHT XR ELBOW, RIGHT XR WRIST, RIGHT CLINICAL INFORMATION: Right arm pain. COMPARISON: None TECHNIQUE: Right shoulder 3 views; right elbow 3 views; right wrist 3 views. FINDINGS: RIGHT SHOULDER: Normal osseous mineralization. The acromioclavicular and glenohumeral joint alignments are normal. There are osteoarthritic changes at the glenohumeral joint with narrowing of the joint space, subarticular sclerosis and irregularity of the articular margins. No evidence of fracture or dislocation. No soft tissue calcifications are noted. There is blunted appearance of the lateral end of the right clavicle, could be related to prior surgery or trauma, recommend clinical correlation. Visualized right hemithorax is unremarkable. RIGHT ELBOW: Normal osseous mineralization. There is no evidence of fracture or dislocation. Osteophytic spurring is noted from the bilateral distal humeral epicondyles and olecranon process. The articular margins otherwise appear unremarkable. No elbow joint effusion. RIGHT WRIST: Normal osseous mineralization. Bones are in normal alignment. No significant abnormality of the bones or joints is noted. Vascular calcifications. IMPRESSION: 1. No acute osseous abnormality in the right shoulder, right elbow and right wrist. 2. 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 3. Mild enthesopathic changes in the right elbow. 4. No significant osseous abnormality in the right wrist.
[2016-10-30 11:42] VITALS: BP 118/58
[2016-10-30] MEDS ORDERED: NAPROXEN375 M2 PO (11:54)
== END 2016-10-30 14:05 ==
LOC: ERH 08:59
DX: J44.9 Chronic obstructive pulmonary disease, unspecified (principal); M79.601 Pain in right arm
CPT/HCPCS: 1263; 73030-RT; 73080-RT; 73110-RT

== ENCOUNTER 2016-11-06 19:22 | Inpatient (IN) | payer OTHER ==
[~2016-11-06] VITALS: Ht 170.2 cm; Wt 65.8 kg
[~2016-11-06 19:22] MED LIST changes: +NAPROXEN375 M2 PO
--- NOTE | 2016-11-06 19:22 | NUR ---
PT BIBA FROM [facility], PER MEDIC PT WAS FOUND WITH SOB ON RA SAT 91%, [facility] ADMINISTERED DUO NEB WITH NO IMPROVEMENT. PT ARRIVED GRUNTING WITH WHEEZING AND A PRODUCTIVE WET COUGH. PT [facility] #18 IN [facility], ARRIVED ON 4L NC SAT 98%. THIS RN ESTABLISHED IV ACCESS #LH WITH LABS DRAWN AND SENT (SSST, BREWER, LAV, BLUE). BLOOD CULTURES COLLECTED AND SENT. DR SNEED AT BEDSIDE, RT CALLED FOR ALBUTEROL TREATMENT. LAURA CORONEL ADMINISTERED 125MG SOLU MEDROL IV TO PT PER EMAR. BEDSIDE XRAY
--- NOTE | 2016-11-06 19:29 | ED DYSPNEA/ASTHMA COMPLAINT ---
History of Present Illness General Chief Complaint: Dyspnea (COPD, CHF, Other) Stated Complaint: SOB Source: old records, EMS, W10 Exam Limitations: dementia Vital Signs & Intake/Output Vital Signs & Intake/Output Vital Signs Date Time Temp Pulse Resp B/P B/P Pulse O2 O2 Flow FiO2 Mean Ox Delivery Rate 11/06 2120 98.5 76 18 113/65 95 Nasal 2.0L Cannula 11/06 2048 74 18 94 Nasal 2.0L Cannula 11/06 2016 98 Room Air 2.0L 11/06 1921 99.0 71 24 129/66 98 Nasal 4.0L Cannula Allergies Coded Allergies: oxycodone (From PERCOCET) (HALLUCINATIONS 05/30/16) Reconcile Medications Acetaminophen (Pain Relief) 650 MG TABLET.ER 1 TAB PO BID PAIN (Reported) Amoxicillin 500 MG CAPSULE 2 CAP PO AD PRN DENTAL CLEANING (Reported) Atorvastatin Calcium 40 MG TABLET 1 TAB PO DAILY CHOLESTEROL (Reported) Bimatoprost (Lumigan) 0.01 % DROPS 1 GTT OPH QHS BOTH EYES (Reported) Carvedilol (Coreg) 3.125 MG TABLET 6.25 MG PO BID BLOOD PRESSURE Chlorhexidine Gluconate (Peridex) 0.12 % MOUTHWASH 15 ML PO BID mouthwash Cholecalciferol (Vitamin D3) 1,000 UNIT TABLET 1 TAB PO DAILY bone strength ( Reported) Clopidogrel Bisulfate (Plavix) 75 MG TABLET 1 TAB PO DAILY A FIB Cyanocobalamin (Vitamin B-12) 1,000 MCG TABLET 1 TAB PO DAILY SUPPLEMENT ( Reported) Divalproex Sodium (Depakote Sprinkle) 125 MG CAP.SPRINK 1 CAP PO BID MENTAL HEALTH (Reported) Guaifenesin 400 MG TABLET 1 TAB PO TID PRN COUGH (Reported) Ipratropium/Albuterol Sulfate (Iprat-Albut 0.5-3(2.5) MG/3 Ml) 0.5 MG-3 MG (2.5 MG BASE)/3 ML AMPUL.NEB 3 ML INH 4XDAILY PRN RESPIRATORY (Reported) Naproxen (Unknown Strength) TABLET (Unknown Dose) PO BID PRN PAIN (Reported) Tamsulosin HCl (Flomax) 0.4 MG CAP.ER.24H 1 TAB PO 1700 BPH Triage Nurses Notes Reviewed? yes HPI: Patient sent in from assisted living with increasing difficulty breathing. Patient has dementia and is unable to provide any history. Patient has a significant history including CHF with ischemic cardiomyopathy, A. fib. Patient is not on O2. Upon EMS arrival patient had a room air saturation 91%. Nursing staff had given him a DuoNeb prior to paramedics arrival. Past History Travel History Traveled to [place] past 21 day No Medical History Any Pertinent Medical History? see below for history Neurological: CVA, TIA EENT: NONE Cardiovascular: hypertension, hyperlipidemia, myocardial infarction, PVD, peripheral vascular disease HEART FAILURE Respiratory: pulmonary nodule? 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 No Review of Systems Review of Systems Constitutional: Reports: see HPI. Physical Exam Physical Exam General Appearance: awake, moderate distress Head: atraumatic Eyes: Bilateral: PERRL, EOMI. Ears, Nose, Throat: normal pharynx, normal ENT inspection Neck: normal inspection, supple, full range of motion, JVD (6CM ) Respiratory: rhonchi, wheezing Cardiovascular: regular rate/rhythm, normal peripheral pulses Gastrointestinal: normal bowel sounds, soft Extremities: pedal edema Neurologic/Psych: NOT RESPONDING TO COMMANDS Skin: intact, normal color, warm/dry Lymphatic: no anterior cervical telma Core Measures ACS in differential dx? No Severe Sepsis Present: No Septic Shock Present: No Progress Differential Diagnosis: asthma, AMI, bronchitis, COPD, pulmonary embolism, pneumonia, pneumothorax Plan of Care: Orders Procedure Date/time Status Nothing by Mouth 11/07 B Active OXYGEN SETUP (GEN) 11/06 2199 Active Saline Lock 11/06 2199 Active Misc Message 11/06 2199 Active ED Holding Orders 11/06 2199 Active Vital Signs 11/06 2199 Active Activity/Ambulation 11/06 2199 Active Code Status 11/06 2199 Active Admit to inpatient 11/06 2158 Active Patient Data 11/06 2158 Active CULTURE,URINE 11/07 2043 Active URINALYSIS 11/07 2043 Complete Straight Cath 11/06 2041 Active Telemetry/Electrical Engineering Technician 11/07 1955 Active BLOOD CULTURE 11/06 1926 Active TROPONIN LEVEL 11/06 1924 Complete DEPAKOTE LEVEL 11/06 1924 Complete COMPREHENSIVE METABOLIC PANEL 11/06 1924 Complete CBC WITHOUT DIFFERENTIAL 11/06 1924 Complete EKG 11/06 1924 Active Laboratory Tests 11/06/162120: Urinalysis LIGHT H, Urine Color YEL, Urine Clarity CLEAR, Urine pH 6.0, Ur Specific [place] 1.015, Urine Protein TRACE H, Urine Ketones TRACE H, Urine Nitrite NEG, Urine Bilirubin NEG, Urine Urobilinogen 1.0, Ur Leukocyte Esterase NEG, Ur Microscopic SEDIMENT EXAMINED, Urine Hemoglobin NEG, Urine Glucose NEG 11/06/161938: Anion Gap 10, Estimated GFR 44 L, BUN/Creatinine Ratio 22.7, Glucose 109 H, Calcium 9.0, Total Bilirubin 1.1, AST 15 L, ALT 32, Alkaline Phosphatase 80, Troponin I < 0.01, Total Protein 6.3, Albumin 3.4 L, Globulin 2.9, Albumin/ Globulin Ratio 1.2, CBC w Diff NO MAN DIFF REQ, RBC 3.31 L, MCV 97.2 H, MCH 32.5 H, RDW 16.4 H, MPV 8.0, Gran % 58.2, Lymphocytes % 21.5, Monocytes % 8.7, Eosinophils % 11.3 H, Basophils % 0.3, Absolute Granulocytes 3.4, Absolute Lymphocytes 1.2, Absolute Monocytes 0.5, Absolute Eosinophils 0.7, Absolute Basophils 0, PUBS MCHC 33.5, Valproic Acid 20.5 L Microbiology 11/06 2120 URINE ROUT: Urine Culture - RECD 11/07 1939 BLOOD: Blood Culture - RECD 11/06 1924 BLOOD: Blood Culture - RECD Diagnostic Imaging: Viewed by Me: Radiology Read. Discussed w/RAD: Radiology Read. CXR Impression: PATIENT: MATTI HACKETT PRESENT AGE: 86 PATIENT ACCOUNT NO: [id number] : 30 LOCATION: [facility] ORDERING PHYSICIAN: BALDEV RAMIREZ DO (TBS) SERVICE DATE: 11/06/16-1925 EXAM TYPE: RAD - XRY- CHEST XRAY, ONE VIEW ONLY EXAMINATION:\H\ \N\XR CHEST CLINICAL INFORMATION: Shortness of breath. COMPARISON: Multiple priors, most recent chest radiographs dated 10/30/2016. TECHNIQUE: Frontal view of the chest was obtained. FINDINGS: Left lower lobe atelectasis, unchanged. The right costophrenic angle is not included on the provided radiograph. No focal airspace consolidation. No large right-sided pleural effusion. No left-sided pleural effusion. No pneumothorax. Stable cardiomediastinal silhouette. No acute osseous body. IMPRESSION: Mild left lung base atelectasis. No significant interval change since the prior examination. DICTATED BY: JIGNA FERNANDES MD DATE/TIME DICTATED:11/06/162001 TARIFF SUPERVISOR:JASMIN DATE/TIME TRANSCRIBED:11/06/162001 CONFIDENTIAL, DO NOT COPY WITHOUT APPROPRIATE AUTHORIZATION. <Electronically signed in Other Vendor System> SIGNED BY: JIGNA FERNANDES MD 11/06/162008 Initial ED EKG: NSR, RBBB, nonspecific ST T wave chg Prior EKG: unchanged Rhythm Strip: atrial fibrillation Comments: Patient is DNR/DNI. Patient's daughters at the bedside. She states that the patient has been aspirating his food and has had aspiration pneumonia recently. She states that his lungs usually sound wheezy and junky. She had discussed it with his primary care physician and they both agreed that he would not want a PEG tube and to feed him whenever he would like. She does state that he is much more confused than he normally is. Departure Departure Disposition: STILL A PATIENT Condition: Stable Clinical Impression Primary Impression: Aspiration pneumonia Qualifiers: Aspiration pneumonia type: unspecified Laterality: unspecified laterality Lung location: unspecified part of lung Qualified Code: J69.0 - Pneumonitis due to inhalation of food and vomit Referrals: NAY LARSON MD (PCP/Family) Departure Forms: Customer Survey General Discharge Information Admission Note Spoke With: NAY LARSON MD Documentation of Exam: Documentation of any treatments & extenuating circumstances including Concerns Regarding Discharge (functional status, medication knowledge or non-compliance, living conditions, etc.) that warrant an admission rather than observation: [IV antibiotics, oxygen, anticipate placement into a higher level of care than assisted living.] Critical Care Note Critical Care Note Critical Care Time: non-applicable
[2016-11-06] MEDS ORDERED: GUAIFENESIN400 MG PO (19:47)
[2016-11-06] MEDS ORDERED: AMOXICILLIN500 M2 PO (19:49)
[2016-11-06] MEDS ORDERED: LUMIGAN2.5 ML OPH (19:50)
[2016-11-06] MEDS ORDERED: PAIN RELIEF650 MG PO (19:50)
[2016-11-06] MEDS ORDERED: NAPROXEN500 M2 PO (19:51)
--- NOTE | 2016-11-06 20:06 | NUR ---
PT MEDCIATED WITH 1G ROCPEHIN IV AND PT HAS 500MG ZITHRO INFUSING AT 250ML/HR IN 250ML NS PER EMAR. PT RESTING WITH DAUGHTER AT BEDSIDE, PT MORE ALERT AND ORIENTED X2 SPEAKING WITH DAUGHTER AT BEDSIDE, NO LONGER GROANING. RT PAGED AGAIN FOR ALBUTEROL TREATMENT. WILL CONTINUE TO MONITOR
--- NOTE | 2016-11-06 20:09 | RADIOLOGY REPORT ---
EXAMINATION:\H\ \N\XR CHEST CLINICAL INFORMATION: Shortness of breath. COMPARISON: Multiple priors, most recent chest radiographs dated 10/30/2016. TECHNIQUE: Frontal view of the chest was obtained. FINDINGS: Left lower lobe atelectasis, unchanged. The right costophrenic angle is not included on the provided radiograph. No focal airspace consolidation. No large right-sided pleural effusion. No left-sided pleural effusion. No pneumothorax. Stable cardiomediastinal silhouette. No acute osseous body. IMPRESSION: Mild left lung base atelectasis. No significant interval change since the prior examination.
[2016-11-06 20:14] LABS: ABSOLUTE BASOPHIL COUNT 0 /CUMM (0.0-0.2); ABSOLUTE EOSINOPHIL COUNT 0.7 /CUMM (0.0-0.7); ABSOLUTE GRANULOCYTE CT 3.4 /CUMM (1.4-6.5); ABSOLUTE LYMPH COUNT 1.2 /CUMM (1.2-3.4); ABSOLUTE MONOCYTE COUNT 0.5 /CUMM (0.10-0.60); BASOPHIL % 0.3 % (0.0-2.0); EOSINOPHIL % 11.3 % (0-5); GRANULOCYTE % 58.2 % (42.2-75.2); HEMATOCRIT 32.2 % (42-52); MEAN CORPUSCULAR HGB 32.5 PG (27.0-31.0); MEAN CORPUSCULAR HGB CONC 33.5 G/DL (33.0-37.0); MEAN CORPUSCULAR VOLUME 97.2 FL (80.0-94.0); PLATELET COUNT 184 /CUMM (130-400); RBC DISTRIBUTION WIDTH 16.4 % (11.5-14.5); RED BLOOD CELL CT 3.31 /CUMM (4.70-6.10); WHITE BLOOD CELL COUNT 5.8 /CUMM (4.8-10.8)
--- NOTE | 2016-11-06 20:14 | NUR ---
PT CHANGED INTO GOWN, PT STATING HIS IS COLD AND REFUSING TO TALK PANTS OFF. THIS RN APPLIED A FALL RISK BRACELET, SOCKS, AND FALL RISK SIGN TO THE DOORWAY. RT AT BEDSIDE TO ADMINISTER ALBUTEROL
--- NOTE | 2016-11-06 20:41 | NUR ---
PT STRAIGHT CATHED WITH 200ML SENT OUTPUT AND URINE TRIO SENT TO LAB.
--- NOTE | 2016-11-06 20:49 | NUR ---
PER DR SNEED PT WILL BE TITRATED DOWN FROM 4LNC.
--- NOTE | 2016-11-06 21:55 | NUR ---
DR SNEED IN FOR POC WITH PT AND FAMILY
--- NOTE | 2016-11-06 22:00 | History & Physical ---
[facility] 7649: General Information and HPI MD Statement: I have seen and personally examined MATTI HACKETT and documented this H&P. The patient is a 86 year old M who presented with a patient stated chief complaint of [shortness of breath and confusion]. Source of Information: patient, family, daughter and son at bedside Exam Limitations: no limitations, pt is confused and hallucinating history obtained from family at bedside History of Present Illness: 86 YO M with PMH significant for COPD not in home oxygen, CHF, atrial fibrillation, HTN, CAD, ischemic cardiomyopathy, ID, AAA (s/p stent placement), PVD, TIA, lung nodule, BPH, CKD, urinary retention secondary to stricture, was brought in from assisted living for shortness of breath and increased confusion. Patient was treated for aspiration pnemonia at the end of July. He has been aspirating since then, however patient and family refused peg tube placement. He has been maintained on regular and thick diet. Patient has been more confused today, actively hallucinating, talking about/to people who have . He is also picking at his clothes. He is not only oriented to self, not oriented to place or time. He thinks he is at [facility]. As per W10 and information obtained from history, patient was more short of breath today and did not get relief from duoneb. Patient was satting 91% on room air. He was given duoneb without improvement. He continues to alexander and wheeze. He was then placed on 4L, then satting 98%. Patient was started on zyprexa for agitation, which the patient did not tolerate well. Subsequently, he has been on depakote. The daughter would like to get him off the depakote if possible. Allergies/Medications Allergies: Coded Allergies: oxycodone (From PERCOCET) (HALLUCINATIONS 05/30/16) Past History Travel History Traveled to [place] past 21 day No Medical History Neurological: CVA, TIA EENT: NONE Cardiovascular: hypertension, hyperlipidemia, myocardial infarction, PVD, peripheral vascular disease HEART FAILURE Respiratory: pulmonary nodule? Gastrointestinal: AAA Hepatic: NONE Renal: benign prost hyperplasia, chronic kidney disease Musculoskeletal: falls, fracture Psychiatric: NONE Endocrine: NONE Blood Disorders: NONE Cancer(s): NONE ENGAGEMENT SPECIALIST/Reproductive: NONE History of MRSA: No History of VRE: Yes History of CDIFF: No Surgical History Surgical History: bilateral knee replacements status post stent for AAA status post DVIU for urethral stricture status post recent right hip ORIF Past Family/Social History Family History Relations & Conditions if any FATHER BROTHER FH: prostate cancer Relation not specified for: FH: myocardial infarction Psychosocial History Where do you live? Assisted Living Who Do You Live With? self Services at Home: Nursing Primary Language: Polish Smoking Status: Former Smoker Functional Ability ADLs Needs Assist: dressing, eating, toileting, bathing. Ambulation: walker IADLs Needs Assist: shopping, housework, finances, food prep, telephone, transportation, medication admin. Review of Systems Review of Systems Constitutional: Reports: see HPI. Denies: chills, malaise, weakness. EENTM: Denies: visual changes. Cardiovascular: Denies: chest pain. Respiratory: Reports: cough, short of breath, wheezing. Denies: hemoptysis, orthopnea. GI: Denies: abdominal pain, bloating, constipation, diarrhea. Genitourinary: Denies: dysuria. Exam & Diagnostic Data Last 24 Hrs of Vital Signs/I&O Vital Signs Date Time Temp Pulse Resp B/P B/P Pulse O2 O2 Flow FiO2 Mean Ox Delivery Rate 11/06 2120 98.5 76 18 113/65 95 Nasal 2.0L Cannula 11/06 2048 74 18 94 Nasal 2.0L Cannula 11/06 2016 98 Room Air 2.0L 11/06 1921 99.0 71 24 129/66 98 Nasal 4.0L Cannula Physical Exam General Appearance Alert, only oriented to self not oriented to time or person Skin No Rashes, No Breakdown, No Significant Lesion Skin Temp/Moisture Exam: Warm/Dry Sepsis Skin Exam (color): Normal for Ethnicity HEENT Atraumatic, PERRLA, EOMI, dry mucous membrane Cardiovascular Regular Rate, Normal S1, Normal S2 Lungs diffuse exp wheezing Abdomen Normal Bowel Sounds, Soft, No Tenderness Neurological Normal Speech Extremities 1+ pitting edema bilaterally right leg bigger than left, chronic Vascular Normal Pulses, Pulses Symmetrical Last 24 Hrs of Labs/Wilner: Laboratory Tests 11/06/162120: Urinalysis LIGHT H, Urine Color YEL, Urine Clarity CLEAR, Urine pH 6.0, Ur Specific Abercrombie 1.015, Urine Protein TRACE H, Urine Ketones TRACE H, Urine Nitrite NEG, Urine Bilirubin NEG, Urine Urobilinogen 1.0, Ur Leukocyte Esterase NEG, Ur Microscopic SEDIMENT EXAMINED, Urine Hemoglobin NEG, Urine Glucose NEG 11/06/161938: Anion Gap 10, Estimated GFR 44 L, BUN/Creatinine Ratio 22.7, Glucose 109 H, Calcium 9.0, Total Bilirubin 1.1, AST 15 L, ALT 32, Alkaline Phosphatase 80, Troponin I < 0.01, Total Protein 6.3, Albumin 3.4 L, Globulin 2.9, Albumin/ Globulin Ratio 1.2, CBC w Diff NO MAN DIFF REQ, RBC 3.31 L, MCV 97.2 H, MCH 32.5 H, RDW 16.4 H, MPV 8.0, Gran % 58.2, Lymphocytes % 21.5, Monocytes % 8.7, Eosinophils % 11.3 H, Basophils % 0.3, Absolute Granulocytes 3.4, Absolute Lymphocytes 1.2, Absolute Monocytes 0.5, Absolute Eosinophils 0.7, Absolute Basophils 0, PUBS MCHC 33.5, Valproic Acid 20.5 L Microbiology 11/06 2253 LOWER RESP: Respiratory Culture - ORD 11/06 2253 LOWER RESP: Gram Stain - ORD 11/06 2252 URINE ROUT: Legionella Antigen - ORD 11/06 2252 URINE ROUT: Streptococcus pneumoniae Antigen (M - ORD 11/06 2120 URINE ROUT: Urine Culture - RECD 11/07 1939 BLOOD: Blood Culture - RECD 11/06 1924 BLOOD: Blood Culture - RECD Diagnostic Data EKG Results A fib, rate 71, first degree heart block, QTc 483 CXR Results Mild left lung base ateletasis No significant change from prior Assessment/Plan Assessment: 86 YO M with PMH significant for COPD not in home oxygen, CHF, atrial fibrillation, HTN, CAD, ischemic cardiomyopathy, ID, AAA (s/p stent placement), PVD, TIA, lung nodule, BPH, CKD, urinary retention secondary to stricture, was brought in from assisted living for shortness of breath and increased confusion. Although CXR reveals left lung base atelectasis that is unchanged from prior imaging, he is a high risk for aspiration, and has been maintained on regular and thick diet, aspiration pneumonia is certainly a likely possibility. In addition to that, he might also have COPD exacerbation given significant wheezing (despite having received 125 mg IV solumedrol) on physical exam, with increased cough. The increased confusion is also concerning. Problem list: # Aspiration pneumonia # COPD exacerbation # Delirium # Aspiration pneumonia * unasyn * bcx2,uc,LRC,urine legionella, urine strep pneumo * swallow eval in am, pt on regular and thick diet # COPD exacerbation * solumedrol 40 q8 * albuterol and ipratropium * mucinex 600 q12 # Delirium * Avoid narcotics, especially percocet # Continue home meds flomax 0.4 mg daily lasix 20 mg daily plavix 75 mg daily coreg 6.25 bid lipitor 40 mg daily Diet: NPO PP: po tylenol for mild pain DVT ppx: alps and heparin sc DNR/DNI As Ranked By This Provider Problem List: 1. Aspiration pneumonia Qualifiers Aspiration pneumonia type: unspecified Laterality: unspecified laterality Lung location: unspecified part of lung Qualified Code: J69.0 - Pneumonitis due to inhalation of food and vomit 2. COPD (chronic obstructive pulmonary disease) Core Measures/Miscellaneous Acute Coronary Syndrome ACS Diagnosis: No Cerebrovascular Accident CVA/TIA Diagnosis: No Congestive Heart Failure CHF Diagnosis: No Venous Thromboembolism VTE Risk Factors: Acute medical illness, Age > 40 [facility] prophylaxis d/t: No contraindications No VTE Pharm Prophylaxis d/t: No contraindications VTE Diagnosis: No VTE Type: NONE VTE Confirmed by (Test): NONE Severe Sepsis Severe Sepsis Present: No Septic Shock Septic Shock Present: No Miscellaneous Documentation Attending Case Discussed With: NAY LARSON MD Primary Care Physician: NAY LARSON MD Patient sees these Specialists n/a Level of Patient Care: General Medicine ADDISON SCHWAB 11/06/16 2209: General Information and HPI Allergies/Medications Home Med list Atorvastatin Calcium 40 MG TABLET 1 TAB PO DAILY CHOLESTEROL (Reported) Bimatoprost (Lumigan) 0.01 % DROPS 1 GTT OPH QHS BOTH EYES (Reported) Carvedilol (Coreg) 3.125 MG TABLET 6.25 MG PO BID BLOOD PRESSURE Chlorhexidine Gluconate (Peridex) 0.12 % MOUTHWASH 15 ML PO BID mouthwash Cholecalciferol (Vitamin D3) 1,000 UNIT TABLET 1 TAB PO DAILY bone strength ( Reported) Clopidogrel Bisulfate (Plavix) 75 MG TABLET 1 TAB PO DAILY A FIB Cyanocobalamin (Vitamin B-12) 1,000 MCG TABLET 1 TAB PO DAILY SUPPLEMENT ( Reported) Divalproex Sodium (Depakote Sprinkle) 125 MG CAP.SPRINK 1 CAP PO BID MENTAL HEALTH (Reported) Furosemide (Lasix) 20 MG TABLET 1 TAB PO DAILY FLUID OBERLOAD (Reported) Guaifenesin 400 MG TABLET 1 TAB PO TID PRN COUGH (Reported) Ipratropium/Albuterol Sulfate (Iprat-Albut 0.5-3(2.5) MG/3 Ml) 0.5 MG-3 MG (2.5 MG BASE)/3 ML AMPUL.NEB 3 ML INH Q6 PRN RESPIRATORY (Reported) Naproxen 500 MG TABLET 500 MG PO BID PRN PAIN (Reported) Tamsulosin HCl (Flomax) 0.4 MG CAP.ER.24H 1 TAB PO 1700 BPH Resident Review Statement Resident Statement: examined this patient, discussed with sourcing intern, agreed with sourcing intern, discussed with family, reviewed EMR data (avail), discussed with nursing , discussed with case mgmt, reviewed images, amended to note Other Findings: 86-year-old male with a past medical history of dementia, coronary artery disease status post angioplasty, BPH, TIA, peripheral vascular disease, abdominal aortic aneurysm status post stent placement, COPD not on home oxygen, hyperlipidemia, A. fib not on anticoagulation who presented to the ED from assisted living facility after he was found to have increased difficulty breathing and altered mental status. History is obtained from the patient's daughter as Mr. Villegas has dementia. According to the patient's daughter, Mr. Villegas was found to have increased work of breathing with no improvement after getting nebulizer treatment. From the nursing staff he was also found to be 91% and so was sent to the ER. There is no history of chest pain, fever, chills, lower extremity edema, abdominal pain, nausea, vomiting, headache, dizziness, and history of sick contact prolonged travel. According to the daughter and Mr. Villegas has been coughing a lot more lately and is bringing up phlegm. He is also very altered and is hallucinating seeing people were no longer alive. Of note he normally keeps his eyes open but since this morning and has not been able to do that. At baseline he is able to recognize his children and has periods of lucidity. He does however suffer from delirium while in the hospital. Vitals at the time of admission blood pressure 113/65, respiratory rate 18, pulse 76, afebrile saturating 95% on liters of oxygen via nasal cannula. On physical exam he is drowsy but arousable, not oriented to place or time. HEENT revealed PERRLA, dry mucous membranes. Examination of the neck did not reveal an elevated JVP or cervical lymphadenopathy. Exam revealed irregularly irregular pulse, normal S1, S2 no murmurs. Respiratory exam revealed bilateral expiratory wheezes. Abdominal exam is benign with abdomen soft, nontender, nondistended normal bowel sounds in all 4 quadrants. Examination of the lower extremities revealed that the right lower extremity was located more swollen compared to the left lower extremity with 1+ bilateral edema extending up to knees. Labs pertinent for microcytic anemia with an H&H of 10.8/32.2, MCV of 97.2, normal white blood cell count 5800 and platelet count 1 84,000. Serum chemistries pertinent for sodium 140, potassium of 5.5, bicarbonate of 28, BUN 34 and a creatinine of 1.5. LFTs unremarkable with an AST/8015/32, total bili 1.1, alkaline phosphatase of 80 and a troponin less than 0.01. Valproic acid was inserted 20.5. UA showed trace amount proteinuria and ketonuria negative for nitrite or esterase. EKG showed A. fib with a heart rate of 71, first-degree AV block with LA interval of 232 ms, left anterior fascicular block with extreme axis deviation. QTC prolonged at 483. Echo showed moderate amount of anterior septal hypokinesis with a left ventricular ejection fraction of 40% as per the echo done in Chest x-ray showed mild left lung base atelectasis with no significant interval change since prior exam. Assessment and plan Admit patient to general medicine. #Acute hypoxemic respiratory failure and altered mentation most likely secondary to dehydration versus aspiration pneumonia. Maintain on aspiration precautions We'll start him on Unasyn 1500 mg every 6 hours Follow-up urinary strep pneumo and Legionella antigen as well as lower respiratory culture He already received Solu-Medrol 125 mg 1 and will start him on 40 mg every 8 hours. TRC nebs Avoid opioids Continue to titrate oxygen to maintain saturations greater than 88%. Follow-up galileo jiménez in a.m. #GAIL on CKD stage III - Most likely 2/2 dehydration - Hydrate with IVF @ 75mls/hr - Avoid nephrotoxic agents. #Coronary artery disease status post stent placements Continue on atorvastatin 40 mg daily, Coreg 6.25 mg twice a day by mouth, Lasix 20 mg daily #History of TIA/stroke Continue on Plavix 75 mg daily #BPH Continue on Flomax 0.4 mg daily DVT prophylaxis Heparin 5000 international units 3 times a day subcutaneous Diet Nothing by mouth for now except for medications given with pured thick liquids CODE STATUS DNR[facility]DNI [facility] 1228: Attending MD Review Statement Attending Statement Attending MD Statement: examined this patient, discuss w/resident/PA/REFRIGERATION INSULATOR, agreed w/resident/PA/REFRIGERATION INSULATOR, discussed with family, reviewed EMR data (avail), discussed with nursing, discussed with case mgmt, reviewed images, amended to note Attending Assessment/Plan: Seen and examined indepently Physical Exam General Appearance Alert, only oriented to self not oriented to time or person Skin No Rashes, No Breakdown, No Significant Lesion Skin Temp/Moisture Exam: Warm/Dry Sepsis Skin Exam (color): Normal for Ethnicity HEENT Atraumatic, PERRLA, EOMI, dry mucous membrane Cardiovascular Regular Rate, Normal S1, Normal S2 Lungs diffuse exp wheezing Abdomen Normal Bowel Sounds, Soft, No Tenderness Neurological Normal Speech Extremities 1+ pitting edema bilaterally right leg bigger than left, chronic Vascular Normal Pulses, Pulses Symmetrical IMPRESSION This is a gentleman with chronic kidney disease, previous ischemic heart disease with previous ID, hyperlipidemia, peripheral vascular disease, previous AAA repair, who is on antiplatelet therapy for peripheral vascular disease, hypertension hyperlipidemia now here with a hip fracture s/p surg on 05/27, Recurrent delirium for very prolonged period due to multiple factors, previous urinary retention with UTI with previous urology evaluation, now comes in with * Ongoing recurrent aspiration as he has waxing and waning of worsening mental status, and pts prior wises were not to have a PEG tube and family not too keen on it with Aspiration pna * Previous chronic lung disease, with rt precarinal LN enlargement with 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, with small lung noudles * On off sig delirium * History of constipation * Pafib not a good candidate for group home anticoag, 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 * 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 Patient on antiplatelet therapy * IHD with cardiomyopathy low ef * Hypertension and hyperlipidemia stable, Ischemic heart disease hypertension stable, Previous aaa * Sig djd cspine REC COnt abx per ID Check mag and keep more than 2 Agg bowel regimen with senna and dulcolax and prn miralax Sputum culture OOB to chair Chlorhexide mouth wash bid daily Keep hob up Olanzapine 2.5 mg po q 8 hrs prn only for severe delirium COnt flomax Prog poor pt is dnr and dni
--- NOTE | 2016-11-06 22:01 | NUR ---
THIS RN SPOKE WITH DR SNEED WHO STATED HE IS COMFORTABLE WITH PT STAYING ON 2LNC 02 SAT BETWEEN 93-95%
--- NOTE | 2016-11-06 22:34 | NUR ---
HOUSE STAFF IN FOR EVAL
--- NOTE | 2016-11-06 22:40 | NUR ---
THIS RN CALLED TO GIVE REPORT AND THE FILM PROCESS OPERATOR STATED THAT THE RN IS "BUSY IN A RM AND WILL CALL YOU BACK"
--- NOTE | 2016-11-06 22:50 | NUR ---
PT GOING TO ROOM 218-1
--- NOTE | 2016-11-06 22:56 | NUR ---
THIS RN GAVE REPORT TO LAURA WILCOX.
[2016-11-06] MEDS ORDERED: LASIX20 M1 PO (23:04)
[2016-11-07 05:01] VITALS: BP 127/81
--- NOTE | 2016-11-07 08:09 | PN- Housestaff ---
Subjective Follow-up For: shortness of breath and increased confusion. Complaints: no complaints Subjective: Patient is seen and examined at bed side. He was confused, not responding to verbal command , at times he became abusive. Review of Systems Constitutional: Denies: no symptoms. Comments: cannt comment due to patients clinical status. Objective Last 24 Hrs of Vital Signs/I&O Vital Signs Date Time Temp Pulse Resp B/P B/P Pulse O2 O2 Flow FiO2 Mean Ox Delivery Rate 11/08 0000 Nasal 2.0L Cannula 11/078 96.8 69 20 130/70 95 Nasal 2.0L Cannula 11/07 2200 69 130/70 11/07 1739 76 130/70 11/07 1600 Nasal 2.0L Cannula 11/07 1447 97.3 58 18 130/80 97 Nasal 2.0L Cannula 11/07 0957 97.7 72 18 127/81 11/07 0800 Nasal 2.0L Cannula 11/07 0501 97.7 72 18 127/81 97 Nasal 2.0L Cannula Intake & Output 11/08 0800 11/08 0000 11/07 1600 Intake Total 100 740 Output Total 415 Balance 100 325 Intake, IV 500 Intake, Oral 100 240 Output, Urine 415 Physical Exam General Appearance: No Acute Distress Cardiovascular: Normal S1, Normal S2 Lungs: left middle part of anterior chest - wheezing present, air entry decreased Abdomen: Soft, No Tenderness Extremities: No Clubbing, No Cyanosis, No Edema Vascular: Normal Pulses, Pulses Symmetrical Current Medications: Current Medications Sig/Chirag Start time Last Medication Dose Route Stop Time Status Admin Acetaminophen 650 MG Q6P PRN 11/06 2300 AC PO Albuterol Sulfate 3 ML Q8 11/07 2199 AC INH Ampicillin Sodium/ 1,500 MG Q6 11/06 2359 AC 11/08 Sulbactam Sodium IV 0004 Sodium Chloride 100 ML Atorvastatin Calcium 40 MG 1700 11/07 1700 AC 11/07 PO 1738 Bisacodyl 5 MG DAILY 11/07 1837 AC 11/07 PO 2005 Budesonide 0.5 MG BID 11/07 2199 AC INH Budesonide/ 2 PUF BID 11/07 2199 CAN Formoterol Fumarate INH Carvedilol 6.25 MG BID 11/07 1000 AC 11/07 PO 2200 Clopidogrel Bisulfate 75 MG DAILY 11/07 1000 AC 11/07 PO 0958 Dextrose/Sodium 1,000 ML Q20H 11/07 0945 AC 11/07 Chloride IV 1012 Divalproex Sodium 125 MG BID 11/06 2330 AC 11/07 PO 2159 Furosemide 20 MG DAILY 11/07 1000 AC 11/07 PO 0957 Guaifenesin 600 MG Q12 11/06 2330 AC 11/07 PO 2159 Heparin Sodium 5,000 UNIT Q8 11/07 0600 AC 11/07 (Porcine) SC 2159 Ipratropium Temple 2.5 ML Q8 11/07 220 CAN INH Ipratropium Temple 2.5 ML Q8 11/07 2200 AC INH Ipratropium Temple 2.5 ML Q6 11/06 2359 AC INH Methylprednisolone 40 MG Q8 11/07 0600 DC 11/07 IV 1417 Non-Formulary 0 SEE ADMIN CRITERIA 11/07 1844 CAN Medication ANY Olanzapine 2.5 MG Q8P PRN 11/07 184 AC 11/07 PO 2014 Ramelteon 8 MG AT BEDTIME 11/07 0100 AC 11/07 PO 215 Senna 187 MG AT BEDTIME 11/07 2200 AC 11/07 PO 215 Sodium Chloride 1,000 ML Q13H 11/06 2330 DC 11/07 IV 11/07 1229 0117 Tamsulosin HCl 0.4 MG 1700 11/07 1700 AC 11/07 PO 1739 Last 24 Hrs of Lab/Wilner Results Last 24 Hrs of Labs/Mics: Laboratory Tests 11/07/16 0727: Anion Gap 9, Estimated GFR 48 L, BUN/Creatinine Ratio 24.3, CBC w Diff MAN DIFF ORDERED, RBC 3.32 L, MCV 98.2 H, MCH 32.7 H, RDW 16.0 H, MPV 8.0, Gran % 92.6 H, Lymphocytes % 7.1 L, Monocytes % 0.3 L, Eosinophils % 0, Basophils % 0 L, Absolute Granulocytes 7.1 H, Absolute Lymphocytes 0.5 L, Absolute Monocytes 0 L, Absolute Eosinophils 0, Absolute Basophils 0, Platelet Estimate VERIFIED BY SMEAR, Polychromasia 1+, Poikilocytosis 2+, Anisocytosis 1+, Ovalocytes 1+, Uzair Cells 1+, PUBS MCHC 33.3 Microbiology 11/08 0000 URINE ROUT: Urine Culture - RECD 11/07 1841 LOWER RESP: Respiratory Culture - ORD 11/07 1841 LOWER RESP: Gram Stain - ORD Assessment/Plan Assessment: 86 YO M with PMH significant for COPD not in home oxygen, CHF, atrial fibrillation, HTN, CAD, ischemic cardiomyopathy, DC, AAA (s/p stent placement), PVD, TIA, lung nodule, BPH, CKD, urinary retention secondary to stricture, was brought in from assisted living for shortness of breath and increased confusion. vitals stable Plan - * He passed swallow evaluation - advised diet * We will continue IV fluids as oral intake is poor. * Keep continues sitter. * we will keep head end of bed elevated * We will stop IV steroids * Started on Nebulization as advised by Dr Fuentes Pitt 8hrly and budesonide BID * We will use olanzapine for continuose agitation. * Continue all home medication. * We pt get stabilized will do CT chest for further evaluation. Diet - Rgular -Honey/Puree DVT PPX - ALPS/Heparin Code -DNR/DNI Problem List: 1. COPD (chronic obstructive pulmonary disease) 2. Aspiration pneumonia Pain Ratin Pain Location: not applicable Pain Goal: Remain pain free Pain Plan: mild Tomorrow's Labs & Rationales: cbc,bep need to r/o infection DVT/Prophylaxis: mechanical, pharmacological
[2016-11-07 09:04] LABS: ABSOLUTE BASOPHIL COUNT 0 /CUMM (0.0-0.2); ABSOLUTE EOSINOPHIL COUNT 0 /CUMM (0.0-0.7); ABSOLUTE GRANULOCYTE CT 7.1 /CUMM (1.4-6.5); ABSOLUTE LYMPH COUNT 0.5 /CUMM (1.2-3.4); ABSOLUTE MONOCYTE COUNT 0 /CUMM (0.10-0.60); BASOPHIL % 0 % (0.0-2.0); EOSINOPHIL % 0 % (0-5); HEMATOCRIT 32.5 % (42-52); MEAN CORPUSCULAR HGB 32.7 PG (27.0-31.0); MEAN CORPUSCULAR HGB CONC 33.3 G/DL (33.0-37.0); MEAN CORPUSCULAR VOLUME 98.2 FL (80.0-94.0); PLATELET COUNT 171 /CUMM (130-400); RED BLOOD CELL CT 3.32 /CUMM (4.70-6.10); WHITE BLOOD CELL COUNT 7.7 /CUMM (4.8-10.8)
[2016-11-07 09:26] LABS: GRANULOCYTE % 92.6 % (42.2-75.2)
--- NOTE | 2016-11-07 12:44 | PN- Pulmonary ---
Subjective HPI/Critical Care Issues: Little confused this am bedside swallow ongoing Still has sig wheezing ON st cath protocol Objective Current Medications: Current Medications Sig/Chirag Start time Last Medication Dose Route Stop Time Status Admin Acetaminophen 650 MG Q6P PRN 11/06 2300 AC PO Albuterol Sulfate 3 ML ONCE ONE 11/06 1930 DC 11/06 INH 11/06 Ampicillin Sodium/ 1,500 MG Q6 11/06 2359 AC 11/07 Sulbactam Sodium IV 1220 Sodium Chloride 100 ML Atorvastatin Calcium 40 MG 1700 11/07 1700 AC PO Azithromycin 500 MG ONCE ONE 11/06 1930 DC 11/06 Sodium Chloride 250 ML IV 11/06 Carvedilol 6.25 MG BID 11/07 1000 AC 11/07 PO 0957 Ceftriaxone Sodium 0 .STK-MED ONE 11/07 2003 DC .ROUTE Ceftriaxone Sodium 1,000 MG ONCE ONE 11/06 1930 DC 11/06 IV 11/06 Clopidogrel Bisulfate 75 MG DAILY 11/07 1000 AC 11/07 PO 0958 Dextrose/Sodium 1,000 ML Q20H 11/07 0945 AC 11/07 Chloride IV 1012 Divalproex Sodium 125 MG BID 11/06 2330 AC 11/07 PO 0957 Furosemide 20 MG DAILY 11/07 1000 AC 11/07 PO 0957 Guaifenesin 600 MG Q12 11/06 2330 AC 11/07 PO 0958 Heparin Sodium 5,000 UNIT Q8 11/07 06 AC (Porcine) SC Ipratropium [place] 2.5 ML Q6 11/06 2359 AC INH Methylprednisolone 40 MG Q8 11/07 0600 AC 11/07 IV 0552 Methylprednisolone 0 .STK-MED ONE 11/06 1932 DC .ROUTE Methylprednisolone 125 MG ONCE ONE 11/06 1930 DC 11/06 IV 11/06 1931951 Oxycodone HCl 5 MG Q6H PRN 11/06 2300 DC PO Ramelteon 8 MG AT BEDTIME 11/07 0100 AC 11/07 PO 0118 Sodium Chloride 1,000 ML Q13H 11/06 2330 DC 11/07 IV 11/07 1229 0117 Tamsulosin HCl 0.4 MG 1700 11/07 1700 AC PO Trazodone HCl 12.5 MG ONCE ONE 11/07 0245 DC 11/07 PO 11/07 0246 0301 Vital Signs & I&O Last 24 Hrs of Vitals and I&O: Vital Signs Date Time Temp Pulse Resp B/P B/P Pulse O2 O2 Flow FiO2 Mean Ox Delivery Rate 11/07 0957 97.7 72 18 127/81 11/07 0800 Nasal 2.0L Cannula 11/07 0501 97.7 72 18 127/81 97 Nasal 2.0L Cannula 11/07 0000 Nasal 2.0L Cannula 11/06 2121 98.5 76 18 113/65 95 Nasal 2.0L Cannula 11/06 2049 74 18 94 Nasal 2.0L Cannula 11/06 2016 98 Room Air 2.0L 11/06 192 99.0 71 24 129/66 98 Nasal 4.0L Cannula Intake & Output 11/07 1600 11/07 0800 11/07 0000 Intake Total 570 Output Total 200 200 Balance 370 -200 Intake, IV 570 Output, Urine 200 200 Patient 145 lb Weight Weight Estimated Measurement Method Laboratory Tests 11/07 726 Chemistry Sodium (137 - 145 mmol/L) 140 Potassium (3.5 - 5.1 mmol/L) 4.8 Chloride (98 - 107 mmol/L) 107 Carbon Dioxide (22 - 30 mmol/L) 24 Anion Gap (5 - 16) 9 BUN (9 - 20 mg/dL) 34 H Creatinine (0.7 - 1.2 mg/dL) 1.4 H Estimated GFR (>60 ml/min) 48 L BUN/Creatinine Ratio (7 - 25 %) 24.3 Hematology CBC w Diff MAN DIFF ORDERED WBC (4.8 - 10.8 /CUMM) 7.7 RBC (4.70 - 6.10 /CUMM) 3.32 L Hgb (14.0 - 18.0 G/DL) 10.8 L Hct (42 - 52 %) 32.5 L MCV (80.0 - 94.0 FL) 98.2 H MCH (27.0 - 31.0 PG) 32.7 H RDW (11.5 - 14.5 %) 16.0 H Plt Count (130 - 400 /CUMM) 171 MPV (7.4 - 10.4 FL) 8.0 Gran % (42.2 - 75.2 %) 92.6 H Lymphocytes % (20.5 - 51.1 %) 7.1 L Monocytes % (1.7 - 9.3 %) 0.3 L Eosinophils % (0 - 5 %) 0 Basophils % (0.0 - 2.0 %) 0 L Absolute Granulocytes (1.4 - 6.5 /CUMM) 7.1 H Absolute Lymphocytes (1.2 - 3.4 /CUMM) 0.5 L Absolute Monocytes (0.10 - 0.60 /CUMM) 0 L Absolute Eosinophils (0.0 - 0.7 /CUMM) 0 Absolute Basophils (0.0 - 0.2 /CUMM) 0 Platelet Estimate (ADEQUATE) VERIFIED BY SMEAR Polychromasia 1+ Poikilocytosis 2+ Anisocytosis 1+ Ovalocytes 1+ Uzair Cells 1+ PUBS MCHC (33.0 - 37.0 G/DL) 33.3 11/06 Chemistry Sodium (137 - 145 mmol/L) 140 Potassium (3.5 - 5.1 mmol/L) 5.5 H Chloride (98 - 107 mmol/L) 102 Carbon Dioxide (22 - 30 mmol/L) 28 Anion Gap (5 - 16) 10 BUN (9 - 20 mg/dL) 34 H Creatinine (0.7 - 1.2 mg/dL) 1.5 H Estimated GFR (>60 ml/min) 44 L BUN/Creatinine Ratio (7 - 25 %) 22.7 Glucose (65 - 99 mg/dL) 109 H Calcium (8.4 - 10.2 mg/dL) 9.0 Total Bilirubin (0.2 - 1.3 mg/dL) 1.1 AST (17 - 59 U/L) 15 L ALT (21 - 72 U/L) 32 Alkaline Phosphatase (< 127 U/L) 80 Troponin I (<0.11 ng/ml) < 0.01 Total Protein (6.3 - 8.2 g/dL) 6.3 Albumin (3.5 - 5.0 g/dL) 3.4 L Globulin (1.9 - 4.2 gm/dL) 2.9 Albumin/Globulin Ratio (1.1 - 2.2 %) 1.2 Hematology CBC w Diff NO MAN DIFF REQ WBC (4.8 - 10.8 /CUMM) 5.8 RBC (4.70 - 6.10 /CUMM) 3.31 L Hgb (14.0 - 18.0 G/DL) 10.8 L Hct (42 - 52 %) 32.2 L MCV (80.0 - 94.0 FL) 97.2 H MCH (27.0 - 31.0 PG) 32.5 H RDW (11.5 - 14.5 %) 16.4 H Plt Count (130 - 400 /CUMM) 184 MPV (7.4 - 10.4 FL) 8.0 Gran % (42.2 - 75.2 %) 58.2 Lymphocytes % (20.5 - 51.1 %) 21.5 Monocytes % (1.7 - 9.3 %) 8.7 Eosinophils % (0 - 5 %) 11.3 H Basophils % (0.0 - 2.0 %) 0.3 Absolute Granulocytes (1.4 - 6.5 /CUMM) 3.4 Absolute Lymphocytes (1.2 - 3.4 /CUMM) 1.2 Absolute Monocytes (0.10 - 0.60 /CUMM) 0.5 Absolute Eosinophils (0.0 - 0.7 /CUMM) 0.7 Absolute Basophils (0.0 - 0.2 /CUMM) 0 PUBS MCHC (33.0 - 37.0 G/DL) 33.5 Toxicology Valproic Acid (50 - 120 ug/mL) 20.5 L Urines Urinalysis LIGHT H Urine Color (YEL,AMB,STR) YEL Urine Clarity (CLEAR) CLEAR Urine pH (5.0 - 8.0) 6.0 Ur Specific Hooper (1.001 - 1.035) 1.015 Urine Protein (NEG,<30 MG/DL) TRACE H Urine Ketones (NEG) TRACE H Urine Nitrite (NEG) NEG Urine Bilirubin (NEG) NEG Urine Urobilinogen (0.1 - 1.0 EU/dl) 1.0 Ur Leukocyte Esterase (NEG) NEG Ur Microscopic SEDIMENT EXAMINED Urine Hemoglobin (NEG) NEG Urine Glucose (N MG/DL) NEG Microbiology Date/Time Procedure - Status Source Growth 11/06 2253 Respiratory Culture - COLB LOWER RESP 11/06 2253 Gram Stain - COLB LOWER RESP 11/06 2252 Legionella Antigen - COLB URINE ROUT 11/06 2252 Streptococcus pneumoniae Antigen (M - COLB URINE ROUT 11/06 2120 Urine Culture - RECD URINE ROUT 11/07 1939 Blood Culture - RES BLOOD 11/06 1924 Blood Culture - RES BLOOD Impression/Plan Impression/Plan Impression/Plan: Physical Exam General Appearance Alert, only oriented to self not oriented to time or person Skin No Rashes, No Breakdown, No Significant Lesion Skin Temp/Moisture Exam: Warm/Dry Sepsis Skin Exam (color): Normal for Ethnicity HEENT Atraumatic, PERRLA, EOMI, dry mucous membrane Cardiovascular Regular Rate, Normal S1, Normal S2 Lungs diffuse exp wheezing Abdomen Normal Bowel Sounds, Soft, No Tenderness Neurological Normal Speech Extremities 1+ pitting edema bilaterally right leg bigger than left, chronic Vascular Normal Pulses, Pulses Symmetrical IMPRESSION This is a gentleman with chronic kidney disease, previous ischemic heart disease with previous MD, hyperlipidemia, peripheral vascular disease, previous AAA repair, who is on antiplatelet therapy for peripheral vascular disease, hypertension hyperlipidemia now here with a hip fracture s/p surg on 05/27, Recurrent delirium for very prolonged period due to multiple factors, previous urinary retention with UTI with previous urology evaluation, now comes in with * Ongoing recurrent aspiration as he has waxing and waning of worsening mental status, and pts prior wises were not to have a PEG tube and family not too keen on it with Aspiration pna * Previous chronic lung disease, with rt precarinal LN enlargement with 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, with small lung noudles * On off sig delirium * History of constipation * Pafib not a good candidate for senior living anticoag, 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 * 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 Patient on antiplatelet therapy * IHD with cardiomyopathy low ef * Hypertension and hyperlipidemia stable, Ischemic heart disease hypertension stable, Previous aaa * Sig djd cspine REC COnt abx, change diet to honey consistance - see speech note DC systemic steroids for now NEbs atc with duoneb q8 hrs Budesonide neb rx daily bid 0.5 mg ONce pt is eating dc ivf COnt depakote and ramelteon daily Check mag and keep more than 2 Agg bowel regimen with senna and dulcolax and prn miralax Sputum culture OOB to chair Chlorhexide mouth wash bid daily Keep hob up Olanzapine 2.5 mg po q 8 hrs prn only for severe delirium COnt flomax Once stable will get a ct chest to eval for lymphadenopathy and rule out other path
[2016-11-07 14:47] VITALS: BP 130/80
[2016-11-07 22:18] VITALS: BP 130/70
--- NOTE | 2016-11-07 22:52 | Event Note ---
Event Note Event Note: Nurse was unable to straight cath him, and he was in extreme pain during the straight cath. Will attempt holden. If unsuccessful, will get urology consult in am. midnight: holden succesfully inserted, urine culture ordered as per protocol, although urine has already been obtained the day prior 1am: patient continues to be agitated despite having received olanzapine around 8pm and rozerem. he is screaming at the top of his lungs. pt currently has a patient safety monitor. will hold off giving him more meds for now.
--- NOTE | 2016-11-08 01:14 | NUR ---
PATIENT IS ALERT AND CONFUSED. ON 2L O2 VIA NC. CRACKLES HEARD THROUGHOUT VITAL SIGNS STABLE. DENIES CHEST PAIN. + PULSES. SKIN C/D/I SIITER AT BEDSIDE. SOFT WRIST RESTRAINT CHECKED Q2. PATIENT UNABLE TO VOID ON OWN. COOK ORDERED AND PLACED WILL CONTINUE TO MONITOR
--- NOTE | 2016-11-08 02:00 | NUR ---
NURSING NOTE: PATIENT RESTLESS AND AGGITATED AT THIS TIME. MD LEMUS MADE AWARE; NO MEDICATION ORDERED PER MD. REASSURANCE AND EMOTIONAL SUPPORT PROVIDED FOR PT. WILL CONT TO MONITOR.
--- NOTE | 2016-11-08 04:30 | NUR ---
NURSING NOTE: PATIENTS WHEEZING HAS INCREASED AT THIS TIME. O2 SAT 86% ON 2L NC. RESPIRATORY AT BEDSIDE GIVING TX. MD LEMUS MADE AWARE; PORTABLE CHEST XRAY ORDERED. O2 INCREASED TO 3L BY RESPIRATORY. PATIENT SITTER AT BEDSIDE, WILL CONTINUE TO MONITOR.
--- NOTE | 2016-11-08 05:58 | RADIOLOGY REPORT ---
EXAMINATION: XR PORTABLE CHEST CLINICAL INFORMATION: Congestion. Wheezing. Desaturation. COMPARISON: 11/06/2016 TECHNIQUE: Portable frontal view of the chest was obtained. FINDINGS: The lungs are well expanded. No consolidation, edema, or effusion. No pneumothorax. The cardiomediastinal silhouette is unchanged. No acute osseous abnormality. IMPRESSION: No acute pulmonary findings.
[2016-11-08 07:24] VITALS: BP 102/62
--- NOTE | 2016-11-08 08:20 | PN- Housestaff ---
Subjective Follow-up For: Aspiration pneumonia Delirium Subjective: Patient is seen and examined at the bedside. He was at a table and was in hard restrains. On auscultation there was generalized wheezing and we were suspecting that it can be secondary to aspiration. Chest x-ray did not show any signs of aspiration. Discussed with Dr. Dill over the phone, he thinks that we will continue patient off the steroids. Review of Systems Constitutional: Denies: no symptoms. Comments: Cannot comment because of patient's clinical status. Objective Last 24 Hrs of Vital Signs/I&O Vital Signs Date Time Temp Pulse Resp B/P B/P Pulse O2 O2 Flow FiO2 Mean Ox Delivery Rate 11/08 1527 98.4 66 20 120/60 96 Nasal 2.0L Cannula 11/08 0941 102/62 11/08 0835 Nasal 2.0L Cannula 11/08 0835 96 Nasal 2.0L Cannula 11/08 0800 95 Nasal 3.0L Cannula 11/08 0724 97.4 54 20 102/62 95 Nasal 2.0L Cannula 11/08 0000 95 Nasal 2.0L Cannula 11/07 2218 96.8 69 20 130/70 95 Nasal 2.0L Cannula 11/07 2200 69 130/70 Intake & Output 11/08 1600 11/08 0800 11/08 0000 Intake Total 890 100 Output Total 600 Balance 290 100 Intake, IV 650 Intake, Oral 240 100 Number 0 Bowel Movements Output, Urine 600 Patient 65.771 kg Weight Physical Exam General Appearance: Mild Distress, not responding to verbal commands, although moving all his limbs.he was in restrain, and continuous observation, monitor. Cardiovascular: Normal S1, Normal S2 Lungs: bilateral generalized wheezing, more on the left side Abdomen: Soft, No Tenderness Extremities: No Clubbing, No Cyanosis, No Edema Vascular: Normal Pulses, Pulses Symmetrical Current Medications: Current Medications Sig/Chirag Start time Last Medication Dose Route Stop Time Status Admin Acetaminophen 650 MG .STK-MED ONE 11/08 0840 DC PO 11/08 0841 Acetaminophen 650 MG Q6P PRN 11/06 2300 AC PO Albuterol Sulfate 3 ML TID 11/08 1600 AC 11/08 INH 1416 Albuterol Sulfate 3 ML Q8 11/07 2200 DC 11/08 INH 0446 Ampicillin Sodium/ 1,500 MG Q6 11/06 2359 AC 11/08 Sulbactam Sodium IV 1714 Sodium Chloride 100 ML Atorvastatin Calcium 40 MG 1700 11/07 1700 AC 11/07 PO 1738 Bisacodyl 5 MG DAILY 11/07 1837 AC 11/07 PO 2005 Budesonide 0.5 MG BID 11/07 2200 AC 11/08 INH 1416 Carvedilol 6.25 MG BID 11/07 1000 AC 11/07 PO 2200 Clopidogrel Bisulfate 75 MG DAILY 11/07 1000 AC 11/08 PO 0939 Dextrose/Sodium 1,000 ML Q20H 11/07 0945 AC 11/08 Chloride IV 0547 Divalproex Sodium 125 MG BID 11/06 2330 AC 11/08 PO 0940 Furosemide 20 MG DAILY 11/07 1000 AC 11/08 PO 0939 Guaifenesin 600 MG Q12 11/06 2330 AC 11/08 PO 0941 Heparin Sodium 5,000 UNIT Q8 11/07 0600 AC 11/08 (Porcine) SC 1336 Ipratropium [place] 2.5 ML TID 11/08 1600 AC 11/08 INH 1416 Ipratropium [place] 2.5 ML Q8 11/07 2199 DC INH Ipratropium [place] 2.5 ML Q6 11/06 2359 DC INH Non-Formulary 0 SEE ADMIN CRITERIA 11/07 1844 CAN Medication ANY Olanzapine 5 MG .STK-MED ONE 11/08 2011 DC PO 11/07 2013 Olanzapine 2.5 MG Q8P PRN 11/07 1845 AC 11/08 PO 1546 Ramelteon 8 MG AT BEDTIME 11/07 0100 AC 11/07 PO 2159 Senna 187 MG AT BEDTIME 11/07 2200 AC 11/07 PO 2159 Tamsulosin HCl 0.4 MG 1700 11/07 1700 AC 11/07 PO 1739 Last 24 Hrs of Lab/Wilner Results Last 24 Hrs of Labs/Mics: Laboratory Tests 11/08/16 0624: Anion Gap 7, Estimated GFR 57 L, BUN/Creatinine Ratio 30.8 H, Magnesium 2.1 Microbiology 11/08 0000 URINE ROUT: Urine Culture - RECD Assessment/Plan Assessment: 86 YO M with PMH significant for COPD not in home oxygen, CHF, atrial fibrillation, HTN, CAD, ischemic cardiomyopathy, NC, AAA (s/p stent placement), PVD, TIA, lung nodule, BPH, CKD, urinary retention secondary to stricture, was brought in from assisted living for shortness of breath and increased confusion. vitals -temperature 98.4, pulse 66, respiratory rate 20, blood pressure 120/60, SPO2 96% on 2 liters of nasal cannula Plan - * He passed swallow evaluation - advised diet, he did not took breakfast, intake was 0. * We will continue IV fluids as oral intake is poor. * Keep continues sitter. * we will keep head end of bed elevated * We will stop IV steroids * Started on Nebulization as advised by Dr Fuentes Pitt 8hrly and budesonide BID * We will use olanzapine for continuose agitation 2.5 milligrams, every 8 hourly as needed * Continue all home medication. * We pt get stabilized will do CT chest for further evaluation. Diet - Regular -Honey/Puree DVT PPX - ALPS/Heparin Code -DNR/DNI Problem List: 1. Chronic systolic heart failure 2. Aspiration pneumonia 3. COPD (chronic obstructive pulmonary disease) 4. Atrial fibrillation 5. Altered mental status 6. Delirium Pain Ratin Pain Location: Not applicable Pain Goal: Remain pain free Pain Plan: Avoid NSAIDs Tomorrow's Labs & Rationales: CBC, BEP to rule out infection and electrolyte abnormality DVT/Prophylaxis: mechanical, pharmacological
[2016-11-08 15:27] VITALS: BP 120/60
--- NOTE | 2016-11-08 15:30 | PN- Pulmonary ---
Subjective HPI/Critical Care Issues: EVents data reviewed Did have sig agitation last night now sleeping did get two doses of olanzapine Laboratory Tests 11/08 11/07 0624 0727 Chemistry Sodium (137 - 145 mmol/L) 140 140 Potassium (3.5 - 5.1 mmol/L) 4.3 4.8 Chloride (98 - 107 mmol/L) 107 107 Carbon Dioxide (22 - 30 mmol/L) 25 24 Anion Gap (5 - 16) 7 9 BUN (9 - 20 mg/dL) 37 H 34 H Creatinine (0.7 - 1.2 mg/dL) 1.2 1.4 H Estimated GFR (>60 ml/min) 57 L 48 L BUN/Creatinine Ratio (7 - 25 %) 30.8 H 24.3 Magnesium (1.6 - 2.3 mg/dL) 2.1 Hematology CBC w Diff MAN DIFF ORDERED WBC (4.8 - 10.8 /CUMM) 7.7 RBC (4.70 - 6.10 /CUMM) 3.32 L Hgb (14.0 - 18.0 G/DL) 10.8 L Hct (42 - 52 %) 32.5 L MCV (80.0 - 94.0 FL) 98.2 H MCH (27.0 - 31.0 PG) 32.7 H RDW (11.5 - 14.5 %) 16.0 H Plt Count (130 - 400 /CUMM) 171 MPV (7.4 - 10.4 FL) 8.0 Gran % (42.2 - 75.2 %) 92.6 H Lymphocytes % (20.5 - 51.1 %) 7.1 L Monocytes % (1.7 - 9.3 %) 0.3 L Eosinophils % (0 - 5 %) 0 Basophils % (0.0 - 2.0 %) 0 L Absolute Granulocytes (1.4 - 6.5 /CUMM) 7.1 H Absolute Lymphocytes (1.2 - 3.4 /CUMM) 0.5 L Absolute Monocytes (0.10 - 0.60 /CUMM) 0 L Absolute Eosinophils (0.0 - 0.7 /CUMM) 0 Absolute Basophils (0.0 - 0.2 /CUMM) 0 Platelet Estimate (ADEQUATE) VERIFIED BY SMEAR Polychromasia 1+ Poikilocytosis 2+ Anisocytosis 1+ Ovalocytes 1+ [place] Cells 1+ PUBS MCHC (33.0 - 37.0 G/DL) 33.3 11/06 Chemistry Sodium (137 - 145 mmol/L) 140 Potassium (3.5 - 5.1 mmol/L) 5.5 H Chloride (98 - 107 mmol/L) 102 Carbon Dioxide (22 - 30 mmol/L) 28 Anion Gap (5 - 16) 10 BUN (9 - 20 mg/dL) 34 H Creatinine (0.7 - 1.2 mg/dL) 1.5 H Estimated GFR (>60 ml/min) 44 L BUN/Creatinine Ratio (7 - 25 %) 22.7 Glucose (65 - 99 mg/dL) 109 H Calcium (8.4 - 10.2 mg/dL) 9.0 Total Bilirubin (0.2 - 1.3 mg/dL) 1.1 AST (17 - 59 U/L) 15 L ALT (21 - 72 U/L) 32 Alkaline Phosphatase (< 127 U/L) 80 Troponin I (<0.11 ng/ml) < 0.01 Total Protein (6.3 - 8.2 g/dL) 6.3 Albumin (3.5 - 5.0 g/dL) 3.4 L Globulin (1.9 - 4.2 gm/dL) 2.9 Albumin/Globulin Ratio (1.1 - 2.2 %) 1.2 Hematology CBC w Diff NO MAN DIFF REQ WBC (4.8 - 10.8 /CUMM) 5.8 RBC (4.70 - 6.10 /CUMM) 3.31 L Hgb (14.0 - 18.0 G/DL) 10.8 L Hct (42 - 52 %) 32.2 L MCV (80.0 - 94.0 FL) 97.2 H MCH (27.0 - 31.0 PG) 32.5 H RDW (11.5 - 14.5 %) 16.4 H Plt Count (130 - 400 /CUMM) 184 MPV (7.4 - 10.4 FL) 8.0 Gran % (42.2 - 75.2 %) 58.2 Lymphocytes % (20.5 - 51.1 %) 21.5 Monocytes % (1.7 - 9.3 %) 8.7 Eosinophils % (0 - 5 %) 11.3 H Basophils % (0.0 - 2.0 %) 0.3 Absolute Granulocytes (1.4 - 6.5 /CUMM) 3.4 Absolute Lymphocytes (1.2 - 3.4 /CUMM) 1.2 Absolute Monocytes (0.10 - 0.60 /CUMM) 0.5 Absolute Eosinophils (0.0 - 0.7 /CUMM) 0.7 Absolute Basophils (0.0 - 0.2 /CUMM) 0 PUBS MCHC (33.0 - 37.0 G/DL) 33.5 Toxicology Valproic Acid (50 - 120 ug/mL) 20.5 L Urines Urinalysis LIGHT H Urine Color (YEL,AMB,STR) YEL Urine Clarity (CLEAR) CLEAR Urine pH (5.0 - 8.0) 6.0 Ur Specific [place] (1.001 - 1.035) 1.015 Urine Protein (NEG,<30 MG/DL) TRACE H Urine Ketones (NEG) TRACE H Urine Nitrite (NEG) NEG Urine Bilirubin (NEG) NEG Urine Urobilinogen (0.1 - 1.0 EU/dl) 1.0 Ur Leukocyte Esterase (NEG) NEG Ur Microscopic SEDIMENT EXAMINED Urine Hemoglobin (NEG) NEG Urine Glucose (N MG/DL) NEG Microbiology Date/Time Procedure - Status Source Growth 11/08 0000 Urine Culture - RECD URINE ROUT 11/07 184 Respiratory Culture - CAN LOWER RESP Cancelled: SPECIMEN NOT RECEIVED IN LABORATORY 11/07 1841 Gram Stain - CAN LOWER RESP Cancelled: SPECIMEN NOT RECEIVED IN LABORATORY 11/06 2253 Respiratory Culture - CAN LOWER RESP Cancelled: SPECIMEN NOT RECEIVED IN LABORATORY 11/06 2253 Gram Stain - CAN LOWER RESP Cancelled: SPECIMEN NOT RECEIVED IN LABORATORY 11/06 2252 Legionella Antigen - COMP URINE ROUT 11/06 225 Streptococcus pneumoniae Antigen (M - COMP URINE ROUT 11/06 2120 Urine Culture - RES URINE ROUT 11/06 1940 Blood Culture - RES BLOOD 11/06 192 Blood Culture - RES BLOOD Objective Current Medications: Current Medications Sig/Chirag Start time Last Medication Dose Route Stop Time Status Admin Acetaminophen 650 MG Q6P PRN 11/06 2300 AC PO Albuterol Sulfate 3 ML TID 11/08 1600 AC 11/08 INH 1416 Albuterol Sulfate 3 ML Q8 11/07 2200 DC 11/08 INH 0446 Ampicillin Sodium/ 1,500 MG Q6 11/06 2359 AC 11/08 Sulbactam Sodium IV 1336 Sodium Chloride 100 ML Atorvastatin Calcium 40 MG 1700 11/07 1700 AC 11/07 PO 1738 Bisacodyl 5 MG DAILY 11/07 1837 AC 11/07 PO 2005 Budesonide 0.5 MG BID 11/07 2200 AC 11/08 INH 1416 Budesonide/ 2 PUF BID 11/07 2200 CAN Formoterol Fumarate INH Carvedilol 6.25 MG BID 11/07 1000 AC 11/07 PO 2200 Clopidogrel Bisulfate 75 MG DAILY 11/07 1000 AC 11/08 PO 0939 Dextrose/Sodium 1,000 ML Q20H 11/07 0945 AC 11/08 Chloride IV 0547 Divalproex Sodium 125 MG BID 11/06 2330 AC 11/08 PO 0940 Furosemide 20 MG DAILY 11/07 1000 AC 11/08 PO 0939 Guaifenesin 600 MG Q12 11/06 2330 AC 11/08 PO 0941 Heparin Sodium 5,000 UNIT Q8 11/07 0600 AC 11/08 (Porcine) SC 1336 Ipratropium [place] 2.5 ML TID 11/08 1600 AC 11/08 INH 1416 Ipratropium [place] 2.5 ML Q8 11/07 220 CAN INH Ipratropium [place] 2.5 ML Q8 11/07 220 DC INH Ipratropium [place] 2.5 ML Q6 11/06 2359 DC INH Methylprednisolone 40 MG Q8 11/07 0600 DC 11/07 IV 1417 Non-Formulary 0 SEE ADMIN CRITERIA 11/07 1844 CAN Medication ANY Olanzapine 5 MG .STK-MED ONE 11/08 2011 DC PO 11/07 2013 Olanzapine 2.5 MG Q8P PRN 11/07 1845 AC 11/08 PO 0939 Ramelteon 8 MG AT BEDTIME 11/07 0100 AC 11/07 PO 2159 Senna 187 MG AT BEDTIME 11/07 2200 AC 11/07 PO 2159 Tamsulosin HCl 0.4 MG 1700 11/07 1700 AC 11/07 PO 1739 Vital Signs & I&O Last 24 Hrs of Vitals and I&O: Vital Signs Date Time Temp Pulse Resp B/P B/P Pulse O2 O2 Flow FiO2 Mean Ox Delivery Rate 11/08 1527 98.4 66 20 120/60 96 Nasal 2.0L Cannula 11/08 0941 102/62 11/08 0835 Nasal 2.0L Cannula 11/08 0835 96 Nasal 2.0L Cannula 11/08 0800 95 Nasal 3.0L Cannula 11/08 0724 97.4 54 20 102/62 95 Nasal 2.0L Cannula 11/08 0000 95 Nasal 2.0L Cannula 11/07 2218 96.8 69 20 130/70 95 Nasal 2.0L Cannula 11/07 2200 69 130/70 11/07 1739 76 130/70 11/07 1600 Nasal 2.0L Cannula Intake & Output 11/08 1600 11/08 0800 11/08 0000 Intake Total 890 100 Output Total 600 Balance 290 100 Intake, IV 650 Intake, Oral 240 100 Number 0 Bowel Movements Output, Urine 600 Patient 145 lb Weight Impression/Plan Impression/Plan Impression/Plan: Physical Exam General Appearance Alert, only oriented to self not oriented to time or person Skin No Rashes, No Breakdown, No Significant Lesion Skin Temp/Moisture Exam: Warm/Dry Sepsis Skin Exam (color): Normal for Ethnicity HEENT Atraumatic, PERRLA, EOMI, dry mucous membrane Cardiovascular Regular Rate, Normal S1, Normal S2 Lungs diffuse exp wheezing Abdomen Normal Bowel Sounds, Soft, No Tenderness Neurological Normal Speech Extremities 1+ pitting edema bilaterally right leg bigger than left, chronic Vascular Normal Pulses, Pulses Symmetrical IMPRESSION This is a gentleman with chronic kidney disease, previous ischemic heart disease with previous [place], hyperlipidemia, peripheral vascular disease, previous AAA repair, who is on antiplatelet therapy for peripheral vascular disease, hypertension hyperlipidemia now here with a hip fracture s/p surg on 05/27, Recurrent delirium for very prolonged period due to multiple factors, previous urinary retention with UTI with previous urology evaluation, now comes in with * Ongoing recurrent aspiration as he has waxing and waning of worsening mental status, and pts prior wises were not to have a PEG tube and family not too keen on it with Aspiration pna * Previous chronic lung disease, with rt precarinal LN enlargement with 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, with small lung noudles * On off sig delirium / now worse * History of constipation * Pafib not a good candidate for manager long term care anticoag, 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 * 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) * Previous urinary retention on Flomax with previous post void residue being high, was followed by urology, with recurrent uti, now UA appears unremarkable, now has a holden as st cath was difficult * CKD stage 3 * Previous QTC prolongation (with occasional use of atypical antipsycotics, this was used as a last resort family agreed to rx with these meds aswell as they wish more of symptomatic care) * Recent hip fracture last year * Cognitive impairment with worsening mental status in the past few months, 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 Patient on antiplatelet therapy * IHD with cardiomyopathy low ef * Hypertension and hyperlipidemia stable, Ischemic heart disease hypertension stable, Previous aaa * Sig djd cspine REC COnt abx, change diet to honey consistance - see speech note Hold systemic steroids IVF till he can take po NEbs atc with duoneb q8 hrs Budesonide neb rx daily bid 0.5 mg ONce pt is eating dc ivf COnt depakote and ramelteon daily Check mag and keep more than 2 Agg bowel regimen with senna and dulcolax and prn miralax Sputum culture OOB to chair if able Chlorhexide mouth wash bid daily Keep hob up Olanzapine 2.5 mg po q 8 hrs prn only for severe delirium COnt flomax and holden Once stable will get a ct chest to eval for lymphadenopathy and rule out other path Prog poor and discussed with his daughter in person today No sig escalation of care if he gets worse
--- NOTE | 2016-11-08 20:50 | NUR ---
LATE ENTRY: AT BEGINNING OF 0800 SHIFT BILAT RESTRAINTS REMOVED. PT AGITATED AND OCCASSIONALLY YELLING BUT DOES NOT PULL ON IV OR COOK. PT VERY WHEEZY, RESP ADMINISTERED TREATMENTS. AT 1800 PT VERY AGITATED, YELLING, AND AGGRESSIVE. BILAT WRIST RESTRAINTS ORDERED AT 1930 PT CALM AND RESTING, BILAT WRIST RESTAINTS REMOVED.
--- NOTE | 2016-11-08 22:44 | Event Note ---
Event Note Event Note: Patient agitated, screaming, and refusing PO meds. Plan: UE restrains 1X 5mg IM olanzapine
[2016-11-08 22:51] VITALS: BP 148/80
--- NOTE | 2016-11-09 00:01 | NUR ---
NURSE NOTE: PT IS ATTEMPTING TO PULL COOK CATH AND IV LINES. AT THIS TIME BILATERAL UPPER SOFT RESTRAINTS ORDERED BY . PT ALSO YELLING AND SWEARING. 5MG ZYPREXA ORDERED AND GIVEN. WILL CONTINUE TO MONITOR.
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
[2016-11-09 07:21] VITALS: BP 100/82
[2016-11-09 07:22] VITALS: BP 100/52
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
[2016-11-09 08:04] LABS: ABSOLUTE BASOPHIL COUNT 0 /CUMM (0.0-0.2); ABSOLUTE EOSINOPHIL COUNT 0.2 /CUMM (0.0-0.7); ABSOLUTE GRANULOCYTE CT 6.5 /CUMM (1.4-6.5); ABSOLUTE LYMPH COUNT 1.1 /CUMM (1.2-3.4); ABSOLUTE MONOCYTE COUNT 0.7 /CUMM (0.10-0.60); BASOPHIL % 0.2 % (0.0-2.0); GRANULOCYTE % 76.3 % (42.2-75.2); HEMATOCRIT 33.2 % (42-52); MEAN CORPUSCULAR HGB 32.6 PG (27.0-31.0); MEAN CORPUSCULAR HGB CONC 33.6 G/DL (33.0-37.0); MEAN CORPUSCULAR VOLUME 96.8 FL (80.0-94.0); MEAN PLATELET VOLUME 7.8 FL (7.4-10.4); PLATELET COUNT 191 /CUMM (130-400); RBC DISTRIBUTION WIDTH 15.6 % (11.5-14.5); RED BLOOD CELL CT 3.43 /CUMM (4.70-6.10); WHITE BLOOD CELL COUNT 8.5 /CUMM (4.8-10.8)
[2016-11-09 14:43] VITALS: BP 128/80
--- NOTE | 2016-11-09 15:00 | NUR ---
LATE ENTRY: DR. HUBBARD AGAIN CONTACTED REGARDING PT'S HEMATURIA. RN INQUIRING IF UROLOGY CONSULT MIGHT BE NECESSARY. PT'S URINE SLIGHTLY LESS HEMATURIC. RN DARRELL TO FOLLOW.
--- NOTE | 2016-11-09 19:16 | PN- Pulmonary ---
Subjective HPI/Critical Care Issues: Doing about the same agitated fatigue nausea Objective Current Medications: Current Medications Sig/Chirag Start time Last Medication Dose Route Stop Time Status Admin Acetaminophen 650 MG Q6P PRN 11/06 2300 AC PO Albuterol Sulfate 3 ML TID 11/08 1600 AC 11/09 INH 1903 Ampicillin Sodium/ 1,500 MG Q6 11/06 2359 AC 11/09 Sulbactam Sodium IV 1853 Sodium Chloride 100 ML Atorvastatin Calcium 40 MG 1700 11/07 1700 AC 11/07 PO 1738 Bisacodyl 5 MG DAILY 11/07 1837 AC 11/09 PO 1150 Budesonide 0.5 MG BID 11/07 2200 AC 11/09 INH 1903 Carvedilol 6.25 MG BID 11/07 1000 AC 11/09 PO 1149 Clopidogrel Bisulfate 75 MG DAILY 11/07 1000 AC 11/09 PO 1150 Dextrose/Sodium 1,000 ML Q20H 11/07 0945 AC 11/08 Chloride IV 2308 Divalproex Sodium 125 MG BID 11/06 2330 AC 11/09 PO 1150 Furosemide 20 MG DAILY 11/07 1000 AC 11/09 PO 1150 Guaifenesin 600 MG Q12 11/06 2330 AC 11/09 PO 1150 Heparin Sodium 5,000 UNIT Q8 11/07 0600 AC 11/09 (Porcine) SC 1319 Ipratropium [place] 2.5 ML TID 11/08 1600 AC 11/09 INH 1317 Olanzapine 5 MG ONCE ONE 11/08 2245 DC 11/08 IM 11/08 2246 2326 Olanzapine 2.5 MG Q8P PRN 11/07 1845 AC 11/09 PO 0115 Ramelteon 8 MG AT BEDTIME 11/07 0100 AC 11/08 PO 2257 Senna 187 MG AT BEDTIME 11/07 2200 AC 11/07 PO 2159 Tamsulosin HCl 0.4 MG 1700 11/07 1700 AC 11/09 PO 1853 Vital Signs & I&O Last 24 Hrs of Vitals and I&O: Vital Signs Date Time Temp Pulse Resp B/P B/P Pulse O2 O2 Flow FiO2 Mean Ox Delivery Rate 11/09 1907 99 Nasal 3.5L Cannula 11/09 1853 128/80 11/09 1443 98.4 80 20 128/80 98 Room Air 11/09 1319 92 Nasal 3.0L Cannula 11/09 1219 Nasal 3.0L Cannula 11/09 1149 70 112/64 11/09 0800 Nasal 3.0L Cannula 11/09 0722 97.8 56 26 100/52 98 11/09 0721 100/82 11/09 0000 Nasal 3.0L Cannula 11/08 2256 63 148/80 11/08 2251 98.0 63 21 148/80 95 Room Air 11/089 93 Nasal 3.0L Cannula Intake & Output 11/09 1600 11/09 0800 11/09 0000 Intake Total 750 640 490 Output Total 300 600 900 Balance 450 40 -410 Intake, IV 400 400 250 Intake, Oral 350 240 240 Output, Stool 0 Output, Urine 300 600 900 Impression/Plan Impression/Plan Impression/Plan: Physical Exam General Appearance Alert, only oriented to self not oriented to time or person Skin No Rashes, No Breakdown, No Significant Lesion Skin Temp/Moisture Exam: Warm/Dry Sepsis Skin Exam (color): Normal for Ethnicity HEENT Atraumatic, PERRLA, EOMI, dry mucous membrane Cardiovascular Regular Rate, Normal S1, Normal S2 Lungs diffuse exp wheezing Abdomen Normal Bowel Sounds, Soft, No Tenderness Neurological Normal Speech Extremities 1+ pitting edema bilaterally right leg bigger than left, chronic Vascular Normal Pulses, Pulses Symmetrical IMPRESSION This is a gentleman with chronic kidney disease, previous ischemic heart disease with previous [place], hyperlipidemia, peripheral vascular disease, previous AAA repair, who is on antiplatelet therapy for peripheral vascular disease, hypertension hyperlipidemia now here with a hip fracture s/p surg on 05/27, Recurrent delirium for very prolonged period due to multiple factors, previous urinary retention with UTI with previous urology evaluation, now comes in with * Ongoing recurrent aspiration as he has waxing and waning of worsening mental status, and pts prior wises were not to have a PEG tube and family not too keen on it with Aspiration pna * Previous chronic lung disease, with rt precarinal LN enlargement with 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, with small lung noudles * On off sig delirium / now worse * History of constipation * Pafib not a good candidate for [facility] anticoag, 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 * 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) * Previous urinary retention on Flomax with previous post void residue being high, was followed by urology, with recurrent uti, now UA appears unremarkable, now has a holden as st cath was difficult * CKD stage 3 * Previous QTC prolongation (with occasional use of atypical antipsycotics, this was used as a last resort family agreed to rx with these meds aswell as they wish more of symptomatic care) * Recent hip fracture last year * Cognitive impairment with worsening mental status in the past few months, 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 Patient on antiplatelet therapy * IHD with cardiomyopathy low ef * Hypertension and hyperlipidemia stable, Ischemic heart disease hypertension stable, Previous aaa * Sig djd cspine REC COnt abx, change diet to honey consistance - see speech note Change to po augmentin in am for a total duration of abx for seven days Hold systemic steroids NEbs atc with duoneb q8 hrs Budesonide neb rx daily bid 0.5 mg COnt depakote and ramelteon daily Check mag and keep more than 2 Agg bowel regimen with senna and dulcolax and prn miralax OOB to chair if able Chlorhexide mouth wash bid daily Keep hob up Olanzapine 2.5 mg po q 8 hrs prn only for severe delirium COnt flomax and holden Once stable will get a ct chest to eval for lymphadenopathy and rule out other path Prog poor and discussed with his daughter before No sig escalation of care if he gets worse
[2016-11-09 21:18] VITALS: BP 120/82
[2016-11-10 06:59] VITALS: BP 130/84
--- NOTE | 2016-11-10 07:11 | PN- Housestaff ---
Subjective Follow-up For: Aspiration pneumonia Fluctuating Delirium Complaints: no complaints Subjective: Patient is seen and examined. He was responding off/on to verbal commmand. According to nurse, he got Zyprexa in night and after that he is less irritable. We decided to keep patient off restrain, and watch for mentation and irritation. He was able to eat 25-30% of diet. Review of Systems Constitutional: Denies: no symptoms. Comments: patient cannt comment because of its clinical status Objective Last 24 Hrs of Vital Signs/I&O Vital Signs Date Time Temp Pulse Resp B/P B/P Pulse O2 O2 Flow FiO2 Mean Ox Delivery Rate 11/10 2246 97.7 77 14 128/76 97 Nasal 3.0L Cannula 11/10 2214 78 116/80 11/10 1930 94 Nasal 2.0L Cannula 11/10 1600 94 Nasal 3.0L Cannula 11/10 1427 98.4 78 20 116/80 98 Room Air 11/10 1253 85 102/69 11/10 1104 86 115/67 11/10 0940 86 115/67 11/10 0807 95 Nasal 3.0L Cannula 11/10 0800 98 Nasal 3.0L Cannula 11/10 0659 98.4 91 20 130/84 98 Nasal 3.0L Cannula Intake & Output 11/11 0800 11/11 0000 11/10 1600 Intake Total 150 400 Output Total 300 Balance 150 100 Intake, IV 150 400 Intake, Oral 0 Output, Urine 300 Physical Exam General Appearance: Mild Distress Skin: area of skin abrations Cardiovascular: Normal S1, Normal S2 Lungs: bilateral whezzing and crepts Abdomen: Normal Bowel Sounds, Soft, No Tenderness Neurological: he respond to verbal and touch, by some words which are not comprehensible, he was drowsy seems under sedation due to medication. Extremities: No Clubbing, No Cyanosis, No Edema Vascular: Normal Pulses, Pulses Symmetrical Current Medications: Current Medications Sig/Chirag Start time Last Medication Dose Route Stop Time Status Admin Acetaminophen 650 MG Q6P PRN 11/06 2300 AC PO Albuterol Sulfate 3 ML TID 11/08 1600 AC 11/10 INH 1928 Amoxicillin/ 500 MG Q8 11/10 0600 AC 11/10 Clavulanate Potassium PO 11/12 2200 0524 Ampicillin Sodium/ 1,500 MG Q6 11/06 2359 DC 11/10 Sulbactam Sodium IV 11/10 0100 0045 Sodium Chloride 100 ML Atorvastatin Calcium 40 MG 1700 11/07 1700 AC 11/09 PO 1853 Bisacodyl 5 MG DAILY 11/07 1837 AC 11/09 PO 1150 Budesonide 0.5 MG BID 11/07 2200 AC 11/10 INH 1927 Carvedilol 6.25 MG BID 11/07 1000 AC 11/09 PO 2150 Chlorhexidine 15 ML BID 11/10 1000 AC 11/10 Gluconate PO 0941 Clopidogrel Bisulfate 75 MG DAILY 11/07 1000 AC 11/09 PO 1150 Dextrose/Sodium 1,000 ML Q20H 11/07 0945 AC 11/10 Chloride IV 1949 Divalproex Sodium 125 MG BID 11/06 2330 AC 11/09 PO 2135 Furosemide 20 MG DAILY 11/07 1000 AC 11/09 PO 1150 Guaifenesin 600 MG Q12 11/06 2330 AC 11/09 PO 2145 Heparin Sodium 5,000 UNIT Q8 11/07 0600 AC 11/10 (Porcine) SC 2215 Ipratropium [place] 2.5 ML TID 11/08 1600 AC 11/10 INH 1928 Olanzapine 2.5 MG Q8P PRN 11/07 1845 DC 11/09 PO 2310 Ramelteon 8 MG AT BEDTIME 11/07 0100 AC 11/09 PO 2136 Senna 187 MG AT BEDTIME 11/07 2200 AC 11/09 PO 2144 Tamsulosin HCl 0.4 MG 1700 11/07 1700 AC 11/09 PO 1853 Assessment/Plan Assessment: 86 YO M with PMH significant for COPD not in home oxygen, CHF, atrial fibrillation, HTN, CAD, ischemic cardiomyopathy, [place], AAA (s/p stent placement), PVD, TIA, lung nodule, BPH, CKD, urinary retention secondary to stricture, was brought in from assisted living for shortness of breath and increased confusion. vitals -temperature 98.4, pulse 80, respiratory rate 20, blood pressure 128/80 SPO2 98% on room air Plan - * He passed swallow evaluation - advised diet, he did not took breakfast, intake was 0. He seems drowsy probably secondary to Zyprexa. * We will continue IV fluids as oral intake is poor. * Keep continues sitter and will try patient off restrains. * we will keep head end of bed elevated * IV steroids were stopped * We will continue on Nebulization as advised by Dr Fuentes Pitt 8hrly and budesonide BID * We will hold olanzapine as patient is looks much sedated. We were using it for continuose agitation 2.5 milligrams, every 8 hourly as needed * Continue all home medication. * When pt get stabilized will do CT chest of chest for further evaluation. * Discussed with daughter about clincal status of patient. * Patient started having hematuria, probably secondary to trauma because of pulling. We will watch for the bleeding. * Urine for strep pneumo and Legionella antigen are negative. Blood culture is not showing any growth. DVT PPX - ALPS/Heparin Code -DNR/DNI Problem List: 1. Aspiration pneumonia 2. Chronic systolic heart failure 3. COPD (chronic obstructive pulmonary disease) 4. Wheezing 5. Atrial fibrillation 6. Delirium Pain Ratin Pain Location: not applicable Pain Goal: Remain pain free Pain Plan: mild Tomorrow's Labs & Rationales: not required DVT/Prophylaxis: mechanical, pharmacological
--- NOTE | 2016-11-10 08:02 | NUR ---
BILATERAL WRIST RESTRAINTS REMOVED; PATIENT SLEEPING AT THIS TIME; SAFETY MONITOR AT BEDSIDE; WILL CONTINUE TO MONITOR PATIENT;
--- NOTE | 2016-11-10 08:05 | NUR ---
PATIENT DROWSY; PATIENT GROANS AND MUMBLES WITH TACTILE AND VERBAL STIMULATION; VITALS SIGNS STABLE (SEE INTERVENTION); DR LARSON AND DR HUBBARD IN ROOM TO ASSESS PATIENT; PER HYDRO OPERATOR RN PATIENT DID RECIEVE ZYPREXA PRIOR TO SLEEP LAST NIGHT; WRIST RESTRAINTS REMOVED; PATIENT SAFETY MONITOR REMAINS AT BEDSIDE; MOUTH CARE PROVIDED TO PATIENT; PATIENT BATHED WITH AX2 MST'S; ALPS IN PLACE; SIZEWISE MATTESS; DRESSINGS OVER SKIN TEARS INTACT; SKIN OTHERWISE INTACT; PATIENT UNABLE TO EAT BREAKFAST OR TAKE PILLS AT THIS TIME HE IS DROWSY; WILL REASESS; WILL CONTINUE TO MONITOR PATIENT;
--- NOTE | 2016-11-10 08:09 | PN- Pulmonary ---
Subjective HPI/Critical Care Issues: DOing about the same Stable Afebrile vss Still confusion Objective Current Medications: Current Medications Sig/Chirag Start time Last Medication Dose Route Stop Time Status Admin Acetaminophen 650 MG Q6P PRN 11/06 2300 AC PO Albuterol Sulfate 3 ML TID 11/08 1600 AC 11/09 INH 1903 Amoxicillin/ 500 MG Q8 11/10 0600 AC 11/10 Clavulanate Potassium PO 0524 Ampicillin Sodium/ 1,500 MG Q6 11/06 2359 DC 11/10 Sulbactam Sodium IV 11/10 0100 0045 Sodium Chloride 100 ML Atorvastatin Calcium 40 MG 1700 11/07 1700 AC 11/09 PO 1853 Bisacodyl 5 MG DAILY 11/07 1837 AC 11/09 PO 1150 Budesonide 0.5 MG BID 11/07 2200 AC 11/09 INH 1903 Carvedilol 6.25 MG BID 11/07 1000 AC 11/09 PO 2150 Clopidogrel Bisulfate 75 MG DAILY 11/07 1000 AC 11/09 PO 1150 Dextrose/Sodium 1,000 ML Q20H 11/07 0945 AC 11/09 Chloride IV 2152 Divalproex Sodium 125 MG BID 11/06 2330 AC 11/09 PO 2135 Furosemide 20 MG DAILY 11/07 1000 AC 11/09 PO 1150 Guaifenesin 600 MG Q12 11/06 2330 AC 11/09 PO 2145 Heparin Sodium 5,000 UNIT Q8 11/07 0600 AC 11/10 (Porcine) SC 0524 Ipratropium [place] 2.5 ML TID 11/08 1600 AC 11/09 INH 1317 Olanzapine 2.5 MG Q8P PRN 11/07 1845 AC 11/09 PO 2310 Ramelteon 8 MG AT BEDTIME 11/07 0100 AC 11/09 PO 2136 Senna 187 MG AT BEDTIME 11/07 2200 AC 11/09 PO 2144 Tamsulosin HCl 0.4 MG 1700 11/07 1700 AC 11/09 PO 1853 Vital Signs & I&O Last 24 Hrs of Vitals and I&O: Vital Signs Date Time Temp Pulse Resp B/P B/P Pulse O2 O2 Flow FiO2 Mean Ox Delivery Rate 11/10 0659 98.4 91 20 130/84 98 Nasal 3.0L Cannula 11/10 0000 99 Nasal 3.0L Cannula 11/09 2150 88 120/82 11/09 2118 98.2 88 20 120/82 99 11/09 1907 99 Nasal 3.5L Cannula 11/09 1853 128/80 11/09 1600 Nasal 3.0L Cannula 11/09 1443 98.4 80 20 128/80 98 Room Air 11/09 1319 92 Nasal 3.0L Cannula 11/09 1219 Nasal 3.0L Cannula 11/09 1149 70 112/64 Intake & Output 11/10 1600 11/10 0800 11/10 0000 Intake Total 440 Output Total 400 500 Balance -400 -60 Intake, IV 200 Intake, Oral 240 Number 1 Bowel Movements Output, Urine 400 500 Impression/Plan Impression/Plan Impression/Plan: Physical Exam General Appearance Alert, only oriented to self not oriented to time or person Skin No Rashes, No Breakdown, No Significant Lesion Skin Temp/Moisture Exam: Warm/Dry Sepsis Skin Exam (color): Normal for Ethnicity HEENT Atraumatic, PERRLA, EOMI, dry mucous membrane Cardiovascular Regular Rate, Normal S1, Normal S2 Lungs diffuse exp wheezing Abdomen Normal Bowel Sounds, Soft, No Tenderness Neurological Normal Speech Extremities 1+ pitting edema bilaterally right leg bigger than left, chronic Vascular Normal Pulses, Pulses Symmetrical IMPRESSION This is a gentleman with chronic kidney disease, previous ischemic heart disease with previous ME, hyperlipidemia, peripheral vascular disease, previous AAA repair, who is on antiplatelet therapy for peripheral vascular disease, hypertension hyperlipidemia now here with a hip fracture s/p surg on 05/27, Recurrent delirium for very prolonged period due to multiple factors, previous urinary retention with UTI with previous urology evaluation, now comes in with * Ongoing recurrent aspiration as he has waxing and waning of worsening mental status, and pts prior wises were not to have a PEG tube and family not too keen on it with Aspiration pna * Previous chronic lung disease, with rt precarinal LN enlargement with 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, with small lung noudles * On off sig delirium / now worse * History of constipation * Pafib not a good candidate for director long term care anticoag, 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 * 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) * Previous urinary retention on Flomax with previous post void residue being high, was followed by urology, with recurrent uti, now UA appears unremarkable, now has a holden as st cath was difficult * CKD stage 3 * Previous QTC prolongation (with occasional use of atypical antipsycotics, this was used as a last resort family agreed to rx with these meds aswell as they wish more of symptomatic care) * Recent hip fracture last year * Cognitive impairment with worsening mental status in the past few months, 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 Patient on antiplatelet therapy * IHD with cardiomyopathy low ef * Hypertension and hyperlipidemia stable, Ischemic heart disease hypertension stable, Previous aaa * Sig djd cspine REC COnt abx, change diet to honey consistance - see speech note Change to po augmentin in am for a total duration of abx for seven days Hold systemic steroids NEbs atc with duoneb q8 hrs Budesonide neb rx daily bid 0.5 mg COnt depakote and ramelteon daily Check mag and keep more than 2 Agg bowel regimen with senna and dulcolax and prn miralax OOB to chair if able Chlorhexide mouth wash bid daily Keep hob up Olanzapine 2.5 mg po q 8 hrs prn only for severe delirium COnt flomax and holden Once stable will get a ct chest to eval for lymphadenopathy and rule out other path Prog poor and discussed with his daughter before No sig escalation of care if he gets worse
[2016-11-10 09:40] VITALS: BP 115/67
--- NOTE | 2016-11-10 11:05 | NUR ---
DR FELIX NOTIFIED AND AWARE PATIENT DID NOT EAT BREAKFAST OR TAKE HIS MORNING MEDICATION DUE TO BEING DROWSY; PATIENT SLEEPING AT THIS TIME; SAFETY MONITOR AT BEDSIDE; VITALS STABLE; COOK PUTTING OUT URINE; IVF INFUSING PER ORDER; WILL CONTINUE TO MONITOR PATIENT;
[2016-11-10 12:53] VITALS: BP 102/69
[2016-11-10 14:27] VITALS: BP 116/80
--- NOTE | 2016-11-10 14:30 | NUR ---
DR PITTMAN NOTIFIED PATIENT REMAINS TOO DROWSY FOR PO INTAKE; PO ANTIOBIOTIC HELD; DR PITTMAN AT BEDSIDE TO ASSESS PATIENT; NO FURHTER ORDERS AT THIS TIME; SAFETY MONITOR REMAIN AT BEDSIDE; WILL CONTINUE TO MONITOR PATIENT;
--- NOTE | 2016-11-10 16:00 | NUR ---
PATIENT DROWSY AROUSABLE AT THIS TIME, MED HELD FOR SOMNULENCE, MEDICARE BILLER KWAN PEPPER
[2016-11-10 22:46] VITALS: BP 128/76
[2016-11-11 07:14] VITALS: BP 106/66
--- NOTE | 2016-11-11 08:10 | PN- Housestaff ---
Subjective Follow-up For: Aspiration pneumonia Fluctuating Delirium Complaints: pt unable to provide hx Subjective: Patient is seen and examined at the bedside. He responded to painful stimuli and verbal command by putting out some words which are not comprehensible. he is less irritable and not required restrain to control. Review of Systems Constitutional: Denies: no symptoms. Comments: Patient cannot comment because of his clinical status Objective Last 24 Hrs of Vital Signs/I&O Vital Signs Date Time Temp Pulse Resp B/P B/P Pulse O2 O2 Flow FiO2 Mean Ox Delivery Rate 11/11 1019 50 106/66 11/11 0839 94 Nasal 3.0L Cannula 11/11 0800 94 Nasal 3.0L Cannula 11/11 0714 96.3 51 20 106/66 96 Nasal 3.0L Cannula 11/11 0000 Nasal 3.0L Cannula 11/10 2246 97.7 77 14 128/76 97 Nasal 3.0L Cannula 11/10 2214 78 116/80 11/10 1930 94 Nasal 2.0L Cannula 11/10 1600 94 Nasal 3.0L Cannula 11/10 1427 98.4 78 20 116/80 98 Room Air Intake & Output 11/11 1600 02 0800 11/11 0000 Intake Total 150 Output Total 300 Balance -300 150 Intake, IV 150 Output, Urine 300 Physical Exam General Appearance: No Acute Distress Skin: . areas of skin abrasions Cardiovascular: Normal S1, Normal S2 Lungs: bilateral wheezing and occasional crepts Abdomen: Soft, No Tenderness Neurological: more drowsy, under sedation due to medication, although arousable , Extremities: No Clubbing, No Cyanosis, No Edema Vascular: Normal Pulses, Pulses Symmetrical Assessment/Plan Assessment: 86 YO M with PMH significant for COPD not in home oxygen, CHF, atrial fibrillation, HTN, CAD, ischemic cardiomyopathy, [place], AAA (s/p stent placement), PVD, TIA, lung nodule, BPH, CKD, urinary retention secondary to stricture, was brought in from assisted living for shortness of breath and increased confusion. vitals -temperature 96.3, pulse 50, respiratory rate 14, blood pressure 106/66, SPO2 94% on room air Plan - * He passed swallow evaluation - advised for puree /Honey thick liquids. He seems drowsy probably secondary to Zyprexa. We discussed with Dr Dill about fluctuating level of consiousness, he advised to feed him when he is consiouse. * We will continue IV fluids as oral intake is poor. * Keep continues sitter and will try patient off restrains. * we will keep head end of bed elevated * IV steroids were stopped * We will continue on Nebulization as advised by Dr Fuentes Pitt 8hrly and budesonide BID * We will hold olanzapine as patient is looks much sedated. We were using it for continuose agitation 2.5 milligrams, every 8 hourly as needed * Continue all home medication. * When pt get stabilized will do CT chest of chest for further evaluation. * Discussed with daughter about clincal status of patient. * Hematuria is stopped and urine is more clear, probably it was secondary to trauma. We will watch for the bleeding. * Urine for strep pneumo and Legionella antigen are negative. Blood culture is not showing any growth. DVT PPX - ALPS/Heparin Code -DNR/DNI Problem List: 1. Chronic systolic heart failure 2. Aspiration pneumonia 3. COPD (chronic obstructive pulmonary disease) 4. Atrial fibrillation 5. Altered mental status 6. Delirium Pain Ratin Pain Location: not applicable Pain Goal: Remain pain free Pain Plan: mild to moderate Tomorrow's Labs & Rationales: not required DVT/Prophylaxis: mechanical, pharmacological
--- NOTE | 2016-11-11 09:25 | PN- Pulmonary ---
Subjective HPI/Critical Care Issues: More awake afebrile vss chest mild crackles abd soft no edema Objective Current Medications: Current Medications Sig/Chirag Start time Last Medication Dose Route Stop Time Status Admin Acetaminophen 650 MG Q6P PRN 11/06 2300 AC PO Albuterol Sulfate 3 ML BID 11/11 2200 AC INH Albuterol Sulfate 3 ML TID 11/08 1600 DC 11/11 INH 0836 Amoxicillin/ 500 MG Q8 11/10 0600 AC 11/10 Clavulanate Potassium PO 11/12 2200 0524 Atorvastatin Calcium 40 MG 1700 11/07 1700 AC 11/09 PO 1853 Bisacodyl 5 MG DAILY 11/07 1837 AC 11/09 PO 1150 Budesonide 0.5 MG BID 11/07 2200 AC 11/11 INH 0837 Carvedilol 6.25 MG BID 11/07 1000 AC 11/09 PO 2150 Chlorhexidine 15 ML BID 11/10 1000 AC 11/10 Gluconate PO 0941 Clopidogrel Bisulfate 75 MG DAILY 11/07 1000 AC 11/09 PO 1150 Dextrose/Sodium 1,000 ML Q20H 11/07 0945 AC 11/10 Chloride IV 1949 Divalproex Sodium 125 MG BID 11/06 2330 AC 11/09 PO 2135 Furosemide 20 MG DAILY 11/07 1000 AC 11/09 PO 1150 Guaifenesin 600 MG Q12 11/06 2330 AC 11/09 PO 2145 Heparin Sodium 5,000 UNIT Q8 11/07 0600 AC 11/11 (Porcine) SC 0622 Ipratropium [place] 2.5 ML BID 11/11 2199 AC INH Ipratropium [place] 2.5 ML TID 11/08 1600 DC 11/11 INH 0837 Olanzapine 2.5 MG Q8P PRN 11/07 1845 DC 11/09 PO 2310 Ramelteon 8 MG AT BEDTIME 11/07 0100 AC 11/09 PO 2136 Senna 187 MG AT BEDTIME 11/07 2200 AC 11/09 PO 2144 Tamsulosin HCl 0.4 MG 1700 11/07 1700 AC 11/09 PO 1853 Vital Signs & I&O Last 24 Hrs of Vitals and I&O: Vital Signs Date Time Temp Pulse Resp B/P B/P Pulse O2 O2 Flow FiO2 Mean Ox Delivery Rate 11/11 0839 94 Nasal 3.0L Cannula 11/11 0714 96.3 51 20 106/66 96 Nasal 3.0L Cannula 11/11 0000 Nasal 3.0L Cannula 11/10 2246 97.7 77 14 128/76 97 Nasal 3.0L Cannula 11/10 2214 78 116/80 11/10 1930 94 Nasal 2.0L Cannula 11/10 1600 94 Nasal 3.0L Cannula 11/10 1427 98.4 78 20 116/80 98 Room Air 11/10 1253 85 102/69 11/10 1104 86 115/67 11/10 0940 86 115/67 Intake & Output 11/11 1600 11/11 0800 11/11 0000 Intake Total 150 Output Total 300 Balance -300 150 Intake, IV 150 Output, Urine 300 Impression/Plan Impression/Plan Impression/Plan: Physical Exam General Appearance Alert, only oriented to self not oriented to time or person Skin No Rashes, No Breakdown, No Significant Lesion Skin Temp/Moisture Exam: Warm/Dry Sepsis Skin Exam (color): Normal for Ethnicity HEENT Atraumatic, PERRLA, EOMI, dry mucous membrane Cardiovascular Regular Rate, Normal S1, Normal S2 Lungs diffuse exp wheezing Abdomen Normal Bowel Sounds, Soft, No Tenderness Neurological Normal Speech Extremities 1+ pitting edema bilaterally right leg bigger than left, chronic Vascular Normal Pulses, Pulses Symmetrical IMPRESSION This is a gentleman with chronic kidney disease, previous ischemic heart disease with previous CT, hyperlipidemia, peripheral vascular disease, previous AAA repair, who is on antiplatelet therapy for peripheral vascular disease, hypertension hyperlipidemia now here with a hip fracture s/p surg on 05/27, Recurrent delirium for very prolonged period due to multiple factors, previous urinary retention with UTI with previous urology evaluation, now comes in with * Ongoing recurrent aspiration as he has waxing and waning of worsening mental status, and pts prior wises were not to have a PEG tube and family not too keen on it with Aspiration pna * Previous chronic lung disease, with rt precarinal LN enlargement with 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, with small lung noudles * On off sig delirium / now worse * History of constipation * Pafib not a good candidate for correction anticoag, 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 * 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) * Previous urinary retention on Flomax with previous post void residue being high, was followed by urology, with recurrent uti, now UA appears unremarkable, now has a holden as st cath was difficult * CKD stage 3 * Previous QTC prolongation (with occasional use of atypical antipsycotics, this was used as a last resort family agreed to rx with these meds aswell as they wish more of symptomatic care) * Recent hip fracture last year * Cognitive impairment with worsening mental status in the past few months, 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 Patient on antiplatelet therapy * IHD with cardiomyopathy low ef * Hypertension and hyperlipidemia stable, Ischemic heart disease hypertension stable, Previous aaa * Sig djd cspine REC COnt abx total seven days Diet to honey consistance - see speech note po augmentin in am for a total duration of abx for seven days Hold systemic steroids NEbs atc with duoneb q8 hrs Budesonide neb rx daily bid 0.5 mg COnt depakote Use Remelteon daily only if he is awake Check mag and keep more than 2 Agg bowel regimen with senna make it bid and add docusate, dulcolax and prn miralax OOB to chair if able Chlorhexide mouth wash tid daily Keep hob up Olanzapine 2.5 mg po q 8 hrs prn only for severe delirium COnt flomax and holden Once stable will get a ct chest to eval for lymphadenopathy and rule out other path Prog poor and discussed with his daughter before No sig escalation of care if he gets worse
[2016-11-11 14:30] VITALS: BP 120/70
[2016-11-11 21:45] VITALS: BP 114/68
[2016-11-12 06:52] VITALS: BP 102/64
--- NOTE | 2016-11-12 07:07 | PN- Housestaff ---
Subjective Follow-up For: Aspiration pneumonia Fluctuating Delirium Complaints: no complaints Subjective: Patient is seen and examined at the bedside. He was very irritable and agitated. He responds to verbal commands by opening the eyes, but his words/sentences is not comprehensible. Review of Systems Constitutional: Denies: no symptoms. Comments: Patient cannot come in because of his clinical status Objective Last 24 Hrs of Vital Signs/I&O Vital Signs Date Time Temp Pulse Resp B/P B/P Pulse O2 O2 Flow FiO2 Mean Ox Delivery Rate 11/12 1036 82 102/60 11/12 0922 94 Nasal 3.0L Cannula 11/12 0800 92 Nasal 3.0L Cannula 11/12 0652 97.7 82 20 102/64 93 11/12 0000 96 Nasal 3.0L Cannula 11/11 2145 97.6 70 20 114/68 100 Nasal 3.0L Cannula 11/11 2139 78 120/70 Intake & Output 11/12 1600 11/12 0800 11/12 0000 Intake Total 640 500 270 Output Total 600 350 600 Balance 40 150 -330 Intake, IV 400 400 150 Intake, Oral 240 100 120 Output, Urine 600 350 600 Physical Exam General Appearance: Mild Distress Cardiovascular: Normal S1, Normal S2 Lungs: bilateral generalized wheezing and crackles Abdomen: Soft, No Tenderness Neurological: he is in a state of acute confusion/intermittent delirium Extremities: No Clubbing, No Cyanosis, No Edema Vascular: Normal Pulses, Pulses Symmetrical Assessment/Plan Assessment: 86 YO M with PMH significant for COPD not in home oxygen, CHF, atrial fibrillation, HTN, CAD, ischemic cardiomyopathy, [place], AAA (s/p stent placement), PVD, TIA, lung nodule, BPH, CKD, urinary retention secondary to stricture, was brought in from assisted living for shortness of breath and increased confusion. vitals -temperature 97.6, pulse 82, respiratory rate 20, blood pressure 102/64, SPO2 93% on room air Plan - * Patient's oral intake is poor. So we will continue IV fluids * Keep continues sitter and will try patient off restrains. * we will keep head end of bed elevated * IV steroids were stopped * We will continue on Nebulization as advised by Dr Fuentes Pitt 8hrly and budesonide BID * Today patient was very agitated , so we gave inj Olanzapine 5mg IM state. if patient get agitated use Zyprexa 2.5 mgs, every 8 hourly as needed * Continue all home medication. * When pt get stabilized will do CT chest of chest for further evaluation. * Patient doesnt have hematuria today. * We will repeat blood work up tomorrow including CBC, CMP, magnesium * Urine for strep pneumo and Legionella antigen are negative. Blood culture is not showing any growth. DVT PPX - ALPS/Heparin Code -DNR/DNI Problem List: 1. Aspiration pneumonia 2. Chronic systolic heart failure 3. COPD (chronic obstructive pulmonary disease) 4. Atrial fibrillation 5. Altered mental status Pain Ratin Pain Location: not applicable Pain Goal: Remain pain free Pain Plan: mild Tomorrow's Labs & Rationales: cbc,bep, mag - to f/u infection
--- NOTE | 2016-11-12 10:37 | NUR ---
NURSING NOTE: PT AGITATED AND REFUSING TO TAKE PO MEDICATIONS AFTER MULTIPLE ATTEMPTS. PHU HUBBARD #[id number] AWARE AND AT BEDSIDE TO ASSESS. 1:1 SITTER REMAINS AT BEDSIDE. WILL CONTINUE TO MONITOR.
--- NOTE | 2016-11-12 13:00 | NUR ---
NURSING NOTE: PT BECOMING MORE AGITATED AND ATTEMPTING TO HIT SITTER. IM ZYPREXA GIVEN ORDERED. PT REPOSITIONED IN BED. 1:1 SITTER REMAINS AT BEDSIDE. WILL MONITOR CLOSELY.
--- NOTE | 2016-11-12 13:28 | PN- Pulmonary ---
Subjective HPI/Critical Care Issues: Still has sig agitation NOt eating Objective Current Medications: Current Medications Sig/Chirag Start time Last Medication Dose Route Stop Time Status Admin Acetaminophen 650 MG Q6P PRN 11/06 2300 AC PO Albuterol Sulfate 3 ML BID 11/11 2200 AC 11/12 INH 0914 Amoxicillin/ 500 MG Q8 11/10 0600 AC 11/12 Clavulanate Potassium PO 11/12 2200 0611 Atorvastatin Calcium 40 MG 1700 11/07 1700 AC 11/09 PO 1853 Bisacodyl 5 MG DAILY 11/07 1837 AC 11/11 PO 1018 Budesonide 0.5 MG BID 11/07 2200 AC 11/12 INH 0916 Carvedilol 6.25 MG BID 11/07 1000 AC 11/11 PO 2139 Chlorhexidine 15 ML BID 11/10 1000 AC 11/11 Gluconate PO 1019 Clopidogrel Bisulfate 75 MG DAILY 11/07 1000 AC 11/11 PO 1019 Dextrose/Sodium 1,000 ML Q20H 11/07 0945 AC 11/12 Chloride IV 0845 Divalproex Sodium 125 MG BID 11/06 2330 AC 11/11 PO 2139 Furosemide 20 MG DAILY 11/07 1000 AC 11/11 PO 1019 Guaifenesin 600 MG Q12 11/06 2330 AC 11/11 PO 2138 Heparin Sodium 5,000 UNIT Q8 11/07 06 AC 11/12 (Porcine) SC 1257 Ipratropium [place] 2.5 ML BID 11/11 2200 AC 11/12 INH 0915 Olanzapine 5 MG ONCE ONE 11/12 1045 DC 11/12 IM 11/12 1046 1252 Patient Medication 1 ED .STK-MED ONE 11/11 1434 DC Teaching ED 11/11 1435 Ramelteon 8 MG AT BEDTIME 11/07 0100 AC 11/11 PO 2139 Senna 187 MG AT BEDTIME 11/07 2200 AC 11/11 PO 2138 Tamsulosin HCl 0.4 [place] 17011/07 1700 AC 11/09 PO 1853 Vital Signs & I&O Last 24 Hrs of Vitals and I&O: Vital Signs Date Time Temp Pulse Resp B/P B/P Pulse O2 O2 Flow FiO2 Mean Ox Delivery Rate 11/12 1036 82 102/60 11/12 0922 94 Nasal 3.0L Cannula 11/12 0800 92 Nasal 3.0L Cannula 11/12 0652 97.7 82 20 102/64 93 / 0000 96 Nasal 3.0L Cannula 11/11 2145 97.6 70 20 114/68 100 Nasal 3.0L Cannula 11/11 2139 78 120/70 11/11 1600 92 Nasal 3.0L Cannula 11/11 1430 98.0 78 14 120/70 92 Nasal 2.0L Cannula Intake & Output 11/12 1600 11/12 0800 06 0000 Intake Total 500 270 Output Total 350 600 Balance 150 -330 Intake, IV 400 150 Intake, Oral 100 120 Output, Urine 350 600 Impression/Plan Impression/Plan Impression/Plan: Physical Exam General Appearance Alert, only oriented to self not oriented to time or person Skin No Rashes, No Breakdown, No Significant Lesion Skin Temp/Moisture Exam: Warm/Dry Sepsis Skin Exam (color): Normal for Ethnicity HEENT Atraumatic, PERRLA, EOMI, dry mucous membrane Cardiovascular Regular Rate, Normal S1, Normal S2 Lungs diffuse exp wheezing Abdomen Normal Bowel Sounds, Soft, No Tenderness Neurological Normal Speech Extremities 1+ pitting edema bilaterally right leg bigger than left, chronic Vascular Normal Pulses, Pulses Symmetrical IMPRESSION This is a gentleman with chronic kidney disease, previous ischemic heart disease with previous [place], hyperlipidemia, peripheral vascular disease, previous AAA repair, who is on antiplatelet therapy for peripheral vascular disease, hypertension hyperlipidemia now here with a hip fracture s/p surg on 05/27, Recurrent delirium for very prolonged period due to multiple factors, previous urinary retention with UTI with previous urology evaluation, now comes in with * Ongoing recurrent aspiration as he has waxing and waning of worsening mental status, and pts prior wises were not to have a PEG tube and family not too keen on it with Aspiration pna * Previous chronic lung disease, with rt precarinal LN enlargement with 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, with small lung noudles * On off sig delirium / now worse * History of constipation * Pafib not a good candidate for chcf anticoag, 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 * 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) * Previous urinary retention on Flomax with previous post void residue being high, was followed by urology, with recurrent uti, now UA appears unremarkable, now has a holden as st cath was difficult * CKD stage 3 * Previous QTC prolongation (with occasional use of atypical antipsycotics, this was used as a last resort family agreed to rx with these meds aswell as they wish more of symptomatic care) * Recent hip fracture last year * Cognitive impairment with worsening mental status in the past few months, 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 Patient on antiplatelet therapy * IHD with cardiomyopathy low ef * Hypertension and hyperlipidemia stable, Ischemic heart disease hypertension stable, Previous aaa * Sig djd cspine REC COnt abx total seven days Diet to honey consistance - see speech note po augmentin in am for a total duration of abx for seven days Hold systemic steroids NEbs atc with duoneb q8 hrs Budesonide neb rx daily bid 0.5 mg Start Olanzapine 2.5 mg atc q12 and if unable to take po give him im Use olanzapine 2.5 inbetween if needed for sig agitation Avoid benzo COnt depakote Use Remelteon daily only if he is awake if not hold it Check mag and keep more than 2 DC atorvastatin Hold lasix if he is not taking enough fluids Agg bowel regimen with senna make it bid and add docusate, dulcolax and prn miralax OOB to chair if able Chlorhexide mouth wash tid daily Keep hob up COnt flomax and holden Once stable will get a ct chest to eval for lymphadenopathy and rule out other path Prog poor and discussed with his daughter before No sig escalation of care if he gets worse
[2016-11-12 20:47] VITALS: BP 125/66
[2016-11-13 06:55] VITALS: BP 122/76
--- NOTE | 2016-11-13 08:12 | PN- Housestaff ---
Subjective Follow-up For: Aspiration pneumonia Fluctuating Delirium Complaints: no complaints Subjective: Patient is seen and examined at the bedside. He was very irritable and agitated. He responds to verbal commands by opening the eyes, but his words/sentences are not comprehensible. Review of Systems Constitutional: Denies: no symptoms. Objective Last 24 Hrs of Vital Signs/I&O Vital Signs Date Time Temp Pulse Resp B/P B/P Pulse O2 O2 Flow FiO2 Mean Ox Delivery Rate 11/13 0555 97.6 86 20 122/76 97 11/13 0000 Nasal 3.0L Cannula 11/129 98.1 80 20 99 Nasal 3.0L Cannula 11/12 204 93 125/66 11/12 203 93 125/66 11/12 1855 92 Nasal 3.0L Cannula 11/12 1736 102/60 Intake & Output 11/13 1600 11/13 0800 11/13 0000 Intake Total 400 400 Output Total 1150 600 Balance -750 -200 Intake, IV 400 400 Output, Urine 1150 600 Physical Exam General Appearance: Mild Distress Cardiovascular: Normal S1, Normal S2 Lungs: b/l crackles Abdomen: Soft, No Tenderness Extremities: No Clubbing, No Cyanosis, No Edema Vascular: Pulses Symmetrical Current Medications: Current Medications Sig/Chirag Start time Last Medication Dose Route Stop Time Status Admin Acetaminophen 650 MG Q6P PRN 11/06 2300 AC PO Albuterol Sulfate 3 ML Q8 11/12 2200 AC 11/12 INH 1855 Albuterol Sulfate 3 ML BID 11/11 2200 DC 11/12 INH 0914 Amoxicillin/ 500 MG Q8 11/10 0600 DC 11/12 Clavulanate Potassium PO 11/12 Atorvastatin Calcium 40 MG 1700 11/07 1700 DC 11/09 PO 1853 Bisacodyl 5 MG DAILY 11/07 1837 AC 11/11 PO 1018 Budesonide 0.5 MG BID 11/07 2200 AC 11/12 INH 1855 Carvedilol 6.25 MG BID 11/07 1000 AC 11/12 PO 2038 Chlorhexidine 15 ML TID 11/12 2200 AC Gluconate PO Chlorhexidine 15 ML BID 11/10 1000 DC 11/11 Gluconate PO 1019 Clopidogrel Bisulfate 75 MG DAILY 11/07 1000 AC 11/11 PO 1019 Dextrose/Sodium 1,000 ML Q20H 11/07 0945 AC 11/13 Chloride IV 0006 Divalproex Sodium 125 MG BID 11/06 2330 AC 11/12 PO 203 Docusate Sodium 100 MG DAILY 11/12 1837 AC PO Furosemide 20 MG BID 11/12 220 AC 11/12 PO 203 Furosemide 20 MG DAILY 11/07 1000 DC 11/11 PO 1019 Guaifenesin 600 MG Q12 11/06 2330 AC 11/12 PO 204 Heparin Sodium 5,000 UNIT Q8 11/07 0600 AC 11/13 (Porcine) SC 0545 Ipratropium [place] 2.5 ML Q8 11/12 2200 AC 11/12 INH 1855 Ipratropium [place] 2.5 ML BID 11/11 2200 DC 11/12 INH 0915 Olanzapine 2.5 MG Q12 11/12 2200 AC 11/12 PO 203 Olanzapine 2.5 MG Q8P PRN 11/12 1845 AC 11/13 PO 0006 Polyethylene Glycol 17 GM DAILY PRN 11/12 1845 AC PO Ramelteon 8 MG AT BEDTIME 11/07 0100 AC 11/12 PO 203 Senna 187 MG AT BEDTIME 11/07 2200 AC 11/12 PO 204 Tamsulosin HCl 0.4 MG 1700 11/07 1700 AC 11/09 PO 1853 Last 24 Hrs of Lab/Wilner Results Last 24 Hrs of Labs/Mics: Laboratory Tests 11/13/16 0740: Anion Gap 5, Estimated GFR > 60, BUN/Creatinine Ratio 15.0, Magnesium 1.9, CBC w Diff NO MAN DIFF REQ, RBC 3.47 L, MCV 97.9 H, MCH 32.6 H, RDW 15.9 H, MPV 8.0, Gran % 62.5, Lymphocytes % 18.8 L, Monocytes % 8.0, Eosinophils % 10.4 H, Basophils % 0.3, Absolute Granulocytes 4.6, Absolute Lymphocytes 1.4, Absolute Monocytes 0.6, Absolute Eosinophils 0.8, Absolute Basophils 0, PUBS MCHC 33.3 Assessment/Plan Assessment: 86 YO M with PMH significant for COPD not in home oxygen, CHF, atrial fibrillation, HTN, CAD, ischemic cardiomyopathy, [place], AAA (s/p stent placement), PVD, TIA, lung nodule, BPH, CKD, urinary retention secondary to stricture, was brought in from assisted living for shortness of breath and increased confusion. vitals -temperature 97.6, pulse 82, respiratory rate 20, blood pressure 102/64, SPO2 93% on room air Plan - * Patient's oral intake is poor. So we will continue IV fluids * Keep continues sitter and will try patient off restrains. * we will keep head end of bed elevated * IV steroids were stopped * We will continue on Nebulization as advised by Dr Fuentes Pitt 8hrly and budesonide BID * if patient get agitated use Zyprexa 2.5 mgs, every 8 hourly as needed * Continue all home medication. * When pt get stabilized will do CT chest of chest for further evaluation. * Patient doesnt have hematuria today. * Urine for strep pneumo and Legionella antigen are negative. Blood culture is not showing any growth. DVT PPX - ALPS/Heparin Code -DNR/DNI Problem List: 1. Aspiration pneumonia Pain Ratin Pain Location: n/a Pain Goal: Remain pain free Pain Plan: autumn Tomorrow's Labs & Rationales: none
[2016-11-13 08:27] LABS: ABSOLUTE BASOPHIL COUNT 0 /CUMM (0.0-0.2); ABSOLUTE EOSINOPHIL COUNT 0.8 /CUMM (0.0-0.7); ABSOLUTE GRANULOCYTE CT 4.6 /CUMM (1.4-6.5); ABSOLUTE LYMPH COUNT 1.4 /CUMM (1.2-3.4); ABSOLUTE MONOCYTE COUNT 0.6 /CUMM (0.10-0.60); BASOPHIL % 0.3 % (0.0-2.0); EOSINOPHIL % 10.4 % (0-5); GRANULOCYTE % 62.5 % (42.2-75.2); HEMATOCRIT 33.9 % (42-52); MEAN CORPUSCULAR HGB 32.6 PG (27.0-31.0); MEAN CORPUSCULAR HGB CONC 33.3 G/DL (33.0-37.0); MEAN CORPUSCULAR VOLUME 97.9 FL (80.0-94.0); PLATELET COUNT 189 /CUMM (130-400); RBC DISTRIBUTION WIDTH 15.9 % (11.5-14.5); RED BLOOD CELL CT 3.47 /CUMM (4.70-6.10); WHITE BLOOD CELL COUNT 7.3 /CUMM (4.8-10.8)
--- NOTE | 2016-11-13 12:31 | PN- Pulmonary ---
Subjective HPI/Critical Care Issues: Little better Wishes to eat Still agitated and fatigued Objective Current Medications: Current Medications Sig/Chirag Start time Last Medication Dose Route Stop Time Status Admin Acetaminophen 650 MG Q6P PRN 11/06 2300 AC PO Albuterol Sulfate 3 ML Q8 11/12 2200 AC 11/13 INH 1200 Albuterol Sulfate 3 ML BID 11/11 2200 DC 11/12 INH 0914 Amoxicillin/ 500 MG Q8 11/10 0600 DC 11/12 Clavulanate Potassium PO 11/12 220 2038 Atorvastatin Calcium 40 MG 1700 11/07 1700 DC 11/09 PO 1853 Bisacodyl 5 MG DAILY 11/07 1837 AC 11/11 PO 1018 Budesonide 0.5 MG BID 11/07 2200 AC 11/13 INH 1157 Carvedilol 6.25 MG BID 11/07 1000 AC 11/12 PO 203 Chlorhexidine 15 ML TID 11/12 2200 AC Gluconate PO Chlorhexidine 15 ML BID 11/10 1000 DC 11/11 Gluconate PO 1019 Clopidogrel Bisulfate 75 MG DAILY 11/07 1000 AC 11/11 PO 1019 Dextrose/Sodium 1,000 ML Q20H 11/07 0945 AC 11/13 Chloride IV 0006 Divalproex Sodium 125 MG BID 11/06 2330 AC 11/12 PO 203 Docusate Sodium 100 MG DAILY 11/12 183 AC PO Furosemide 20 MG BID 11/12 2200 AC 11/12 PO 203 Furosemide 20 MG DAILY 11/07 1000 DC 11/11 PO 1019 Guaifenesin 600 MG Q12 11/06 2330 AC 11/12 PO 2041 Heparin Sodium 5,000 UNIT Q8 11/07 06 AC 11/13 (Porcine) SC 0545 Ipratropium [place] 2.5 ML Q8 11/12 2200 AC 11/13 INH 1201 Ipratropium [place] 2.5 ML BID 11/11 2200 DC 11/12 INH 0915 Olanzapine 2.5 MG Q12 11/12 220 AC 11/12 PO 2037 Olanzapine 2.5 MG Q8P PRN 11/12 1845 AC 11/13 PO 0006 Polyethylene Glycol 17 GM DAILY PRN 11/12 1845 AC PO Ramelteon 8 MG AT BEDTIME 11/07 0100 AC 11/12 PO 203 Senna 187 MG AT BEDTIME 11/07 2199 AC 11/12 PO 2040 Tamsulosin HCl 0.4 MG 1700 11/07 1700 AC 11/09 PO 185 Vital Signs & I&O Last 24 Hrs of Vitals and I&O: Vital Signs Date Time Temp Pulse Resp B/P B/P Pulse O2 O2 Flow FiO2 Mean Ox Delivery Rate 11/13 654 97.6 86 20 122/76 97 11/13 0000 Nasal 3.0L Cannula 11/12 2228 98.1 80 20 99 Nasal 3.0L Cannula 11/12 2046 93 125/66 11/12 2037 93 125/66 11/12 1854 92 Nasal 3.0L Cannula 11/12 1736 102/60 Intake & Output 11/13 1600 11/13 0800 11/13 0000 Intake Total 400 400 Output Total 1150 600 Balance -750 -200 Intake, IV 400 400 Output, Urine 1150 600 Impression/Plan Impression/Plan Impression/Plan: Physical Exam General Appearance Alert, only oriented to self not oriented to time or person Skin No Rashes, No Breakdown, No Significant Lesion Skin Temp/Moisture Exam: Warm/Dry Sepsis Skin Exam (color): Normal for Ethnicity HEENT Atraumatic, PERRLA, EOMI, dry mucous membrane Cardiovascular Regular Rate, Normal S1, Normal S2 Lungs diffuse exp wheezing Abdomen Normal Bowel Sounds, Soft, No Tenderness Neurological Normal Speech Extremities 1+ pitting edema bilaterally right leg bigger than left, chronic Vascular Normal Pulses, Pulses Symmetrical IMPRESSION This is a gentleman with chronic kidney disease, previous ischemic heart disease with previous [place], hyperlipidemia, peripheral vascular disease, previous AAA repair, who is on antiplatelet therapy for peripheral vascular disease, hypertension hyperlipidemia now here with a hip fracture s/p surg on 05/27, Recurrent delirium for very prolonged period due to multiple factors, previous urinary retention with UTI with previous urology evaluation, now comes in with * Ongoing recurrent aspiration as he has waxing and waning of worsening mental status, and pts prior wises were not to have a PEG tube and family not too keen on it with Aspiration pna * Previous chronic lung disease, with rt precarinal LN enlargement with 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, with small lung noudles * On off sig delirium / now worse * History of constipation * Pafib not a good candidate for half-way anticoag, 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 * 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) * Previous urinary retention on Flomax with previous post void residue being high, was followed by urology, with recurrent uti, now UA appears unremarkable, now has a holden as st cath was difficult * CKD stage 3 * Previous QTC prolongation (with occasional use of atypical antipsycotics, this was used as a last resort family agreed to rx with these meds aswell as they wish more of symptomatic care) * Recent hip fracture last year * Cognitive impairment with worsening mental status in the past few months, 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 Patient on antiplatelet therapy * IHD with cardiomyopathy low ef * Hypertension and hyperlipidemia stable, Ischemic heart disease hypertension stable, Previous aaa * Sig djd cspine REC COnt abx total seven days Diet to honey consistance - see speech note po augmentin for a total duration of abx for seven days Hold systemic steroids NEbs atc with duoneb q8 hrs Budesonide neb rx daily bid 0.5 mg Start Olanzapine 2.5 mg atc q12 and if unable to take po give him im Use olanzapine 2.5 inbetween if needed for sig agitation Avoid benzo COnt depakote Use Remelteon daily only if he is awake if not hold it Check mag and keep more than 2 DC atorvastatin Hold lasix if he is not taking enough fluids Agg bowel regimen with senna make it bid and add docusate, dulcolax and prn miralax OOB to chair if able Chlorhexide mouth wash tid daily Keep hob up COnt flomax and holden Once stable will get a ct chest to eval for lymphadenopathy and rule out other path Prog poor and discussed with his daughter before No sig escalation of care if he gets worse
[2016-11-13 22:52] VITALS: BP 110/62
[2016-11-14 06:51] VITALS: BP 108/74
--- NOTE | 2016-11-14 07:23 | PN- Housestaff ---
See Addendum Subjective Follow-up For: f/u aspiration pneumonia, delirium Complaints: no complaints Subjective: Patient is seen and examined at the bedside. He has intermittent episodes of delirium and agitation. His oral intake is very poor. Discussed with the dietitian and plan is to give whatever the patient accepts. Review of Systems Constitutional: Denies: no symptoms. Comments: Cannot comment because of the patient's clinical condition Objective Last 24 Hrs of Vital Signs/I&O Vital Signs Date Time Temp Pulse Resp B/P B/P Pulse O2 O2 Flow FiO2 Mean Ox Delivery Rate 11/14 1152 88 110/44 11/14 1011 95 Nasal 3.0L Cannula 11/14 0651 97.4 79 20 108/74 96 11/14 0000 Nasal 3.0L Cannula 11/13 2252 97.8 54 20 110/62 97 Nasal Cannula 11/13 1835 94 Nasal 3.0L Cannula 11/13 1600 03 Nasal 3.0L Cannula Intake & Output 11/14 1600 11/14 0800 11/14 0000 Intake Total Output Total 800 600 Balance -800 -600 Output, Urine 800 600 Physical Exam General Appearance: Mild Distress Skin: No Rashes, No Breakdown Cardiovascular: Normal S1, Normal S2 Lungs: Clear to Auscultation, Normal Air Movement Abdomen: Soft, No Tenderness Neurological: dementia, episodes of agitation and delirium, responding to verbal commands, but voice is not comprehensible Current Medications: Current Medications Sig/Chirag Start time Last Medication Dose Route Stop Time Status Admin Acetaminophen 650 MG Q6P PRN 11/06 2300 AC PO Albuterol Sulfate 3 ML BID 11/13 2200 AC 11/14 INH 0840 Albuterol Sulfate 3 ML Q8 11/12 2200 DC 11/13 INH 1200 Bisacodyl 5 MG DAILY 11/07 1837 AC 11/11 PO 1018 Budesonide 0.5 MG BID 11/07 2200 AC 11/14 INH 0839 Carvedilol 6.25 MG BID 11/07 1000 AC 11/12 PO 2038 Chlorhexidine 15 ML TID 11/12 220 AC 11/13 Gluconate PO 2321 Clopidogrel Bisulfate 75 MG DAILY 11/07 1000 AC 11/11 PO 1019 Dextrose/Sodium 1,000 ML Q20H 11/07 0945 AC 11/13 Chloride IV 2157 Divalproex Sodium 125 MG BID 11/06 2330 AC 11/13 PO 2308 Docusate Sodium 100 MG DAILY 11/12 1837 AC PO Furosemide 20 MG BID 11/12 2200 AC 11/13 PO 2307 Guaifenesin 600 MG Q12 11/06 2330 AC 11/13 PO 2312 Heparin Sodium 5,000 UNIT Q8 11/07 0600 AC 11/14 (Porcine) SC 0552 Ipratropium [place] 2.5 ML BID 11/13 2200 AC 11/14 INH 0840 Ipratropium [place] 2.5 ML Q8 11/12 2200 DC 11/13 INH 1201 Olanzapine 2.5 MG Q12 11/12 2200 AC 11/13 PO 2308 Olanzapine 2.5 MG Q8P PRN 11/12 1845 AC 11/13 PO 0006 Polyethylene Glycol 17 GM DAILY PRN 11/12 1845 AC PO Ramelteon 8 MG AT BEDTIME 11/07 0100 AC 11/13 PO 2308 Senna 187 MG AT BEDTIME 11/07 2200 AC 11/13 PO 2312 Tamsulosin HCl 0.4 MG 1700 11/07 1700 AC 11/09 PO 1853 Assessment/Plan Assessment: 86 YO M with PMH significant for COPD not in home oxygen, CHF, atrial fibrillation, HTN, CAD, ischemic cardiomyopathy, [place], AAA (s/p stent placement), PVD, TIA, lung nodule, BPH, CKD, urinary retention secondary to stricture, was brought in from assisted living for shortness of breath and increased confusion. vitals -afebrile, pulse 88, respiratory rate 20, blood pressure 108/74, SPO2 96% on room air Plan - * Patient's oral intake is poor. So we will continue IV fluids, discussed with dietitian over the phone, and plan is to give what the patients like. * Keep continues sitter. Patient is on the restrain. * we will keep head end of bed elevated * IV steroids were stopped * We will continue on Nebulization as advised by Dr Fuentes Pitt 8hrly and budesonide BID * if patient get agitated use Zyprexa 2.5 mgs BID and in between as needed. * Continue all home medication. * When pt get stabilized will do CT chest of chest for further evaluation. * Patient doesnt have hematuria today. * Urine for strep pneumo and Legionella antigen are negative. * Blood culture is not showing any growth. DVT PPX - ALPS/Heparin Code -DNR/DNI Problem List: 1. Chronic systolic heart failure 2. Aspiration pneumonia 3. COPD (chronic obstructive pulmonary disease) 4. Atrial fibrillation 5. Delirium Pain Ratin Pain Location: Not applicable Pain Goal: Remain pain free Pain Plan: Mild to moderate Tomorrow's Labs & Rationales: not required DVT/Prophylaxis: mechanical, pharmacological
--- NOTE | 2016-11-14 14:00 | NUR ---
PO MEDS HELD FOR SOMNULENCE. REMEDIATION CONSULTANT PHU AWARE. PATIENT AROUSABLE WITH CARE.
[2016-11-14 14:34] VITALS: BP 104/70
--- NOTE | 2016-11-14 18:41 | Patient Discharge Instructions ---
Discharge Instructions General Discharge Information You were seen/treated for: Aspiration pneumonia, Delirium Special Instructions: Please follow-up with your PCP within a week of discharge Diet Continue normal diet: Yes Acute Coronary Syndrome Inclusion Criteria At DC or during hospital stay patient has or had the following: ACS DIAGNOSIS No Discharge Core Measures Meds if any: Prescribed or Continued at Discharge Meds if any: NOT Prescribed or Continued at Discharge Congestive Heart Failure Inclusion Criteria At DC or during hospital stay patient has or had the following: CHF DIAGNOSIS No Discharge Core Measures Meds if any: Prescribed or Continued at Discharge Meds if any: NOT Prescribed or Continued at Discharge Cerebrovascular accident Inclusion Criteria At DC or during hospital stay patient has or had the following: CVA/TIA Diagnosis No Discharge Core Measures Meds if any: Prescribed or Continued at Discharge Meds if any: NOT Prescribed or Continued at Discharge Venous thromboembolism Inclusion Criteria VTE Diagnosis No VTE Type NONE VTE Confirmed by (Test) NONE Discharge Core Measures - Per Current guidelines, there needs to be overlap - treatment for the first 5 days of Warfarin therapy. - If discharged on Warfarin prior to 5 days of - overlap therapy, the patient will need to be - assessed for post discharge needs including - *Post discharge parental anticoagulation - *Warfarin and/or parental anticoagulation education - *Follow up date to check INR post discharge At least 5 days overlap therapy as Inpatient No Meds if any: Prescribed or Continued at Discharge Warfarin No Note: Overlap Therapy is Warfarin and Anticoagulant Meds if any: NOT Prescribed or Continued at Discharge
[2016-11-14 21:59] VITALS: BP 116/74
--- NOTE | 2016-11-14 23:01 | NUR ---
NURSE NOTE: PT LETHARGIC AND DIFFICULTY SWALLING PILLS AT THIS TIME. [employer] UNIT FEEDER MADE AWARE THAT NIGHTTME PILLS NOT GIVEN. VSS.
--- NOTE | 2016-11-15 05:57 | NUR ---
NURSE NOTE: PT URINE OUTPUT 200ML OVERNIGHT. BUSINESS ACCOUNT LEADER MADE AWARE.
[2016-11-15 05:58] VITALS: BP 110/62
--- NOTE | 2016-11-15 07:26 | PN- Housestaff ---
Subjective Follow-up For: Aspiration pneumonia Delirium Subjective: Patient was seen and examined this morning, respond by open eyes to verbal stimuli. Overnight events was reported by the nurse, patient was very competitive and agitated, refused medication. Patient answered question by nodding his head, denied chest pain, abdominal pain, shortness of breath. Review of Systems Constitutional: Reports: see HPI. Objective Last 24 Hrs of Vital Signs/I&O Vital Signs Date Time Temp Pulse Resp B/P B/P Pulse O2 O2 Flow FiO2 Mean Ox Delivery Rate 11/15 0558 97.7 68 18 110/62 96 Nasal 3.5L Cannula 11/15 0000 Nasal 3.5L Cannula 11/14 2159 98.2 84 20 116/74 95 Room Air 11/14 1700 95 Nasal 4.5L Cannula 11/14 1434 98.0 85 20 104/70 98 Room Air 11/14 1152 88 110/44 11/14 1011 95 Nasal 3.0L Cannula Intake & Output 11/15 1600 / 0800 11/15 0000 Intake Total 800 Output Total 200 300 Balance 600 -300 Intake, IV 800 Intake, Oral 0 Output, Urine 200 300 Physical Exam General Appearance: No Acute Distress Skin: No Rashes HEENT: Atraumatic, PERRLA, EOMI, Mucous Membr. moist/pink Neck: Supple Cardiovascular: Regular Rate, Normal S1, Normal S2, No Murmurs Lungs: Clear to Auscultation, Normal Air Movement Abdomen: Normal Bowel Sounds, Soft, No Tenderness Extremities: No Clubbing, No Cyanosis, No Edema, Normal Pulses, No Tenderness/ Swelling Assessment/Plan Assessment: 86 YO M with PMH significant for COPD not in home oxygen, CHF, atrial fibrillation, HTN, CAD, ischemic cardiomyopathy, [place], AAA (s/p stent placement), PVD, TIA, lung nodule, BPH, CKD, urinary retention secondary to stricture, was brought in from assisted living for shortness of breath and increased confusion. Plan - * Patient was very competitive and refused all of medication yesterday including antibiotic * Keep continues sitter. Patient is on the restrain. * We'll increase IV fluids to 75 mL per hour given that patient refusing all of his medication with decreased oral intake * We'll obtain swallow evaluation again * We will continue on Nebulization as advised by Dr Fuentes Pitt 8hrly and budesonide BID * if patient get agitated use Zyprexa 2.5 mgs BID and in between as needed. * When pt get stabilized will do CT chest of chest for further evaluation * Urine for strep pneumo and Legionella antigen are negative * Blood culture is negative * Leno Dill MD will have meeting with the patient's family tomorrow 11/16 at 9: 30 AM regarding goals of care DVT PPX - ALPS/Heparin Code -DNR/DNI Problem List: 1. Chronic systolic heart failure 2. Aspiration pneumonia 3. Atrial fibrillation 4. Delirium Pain Ratin Pain Location: none Pain Goal: Pain 4 or less Pain Plan: mild pain pathway Tomorrow's Labs & Rationales: BMP
[2016-11-15 15:06] VITALS: BP 106/60
--- NOTE | 2016-11-15 19:15 | PN- Pulmonary ---
Subjective HPI/Critical Care Issues: Patient was seen and examined this morning, respond by open eyes to verbal stimuli. Overnight events was reported by the nurse, patient was very uncompetitive and agitated, refused medication. Patient answered question by nodding his head, denied chest pain, abdominal pain , shortness of breath. Review of Systems Constitutional: Reports: see HPI. Objective Current Medications: Current Medications Sig/Chirag Start time Last Medication Dose Route Stop Time Status Admin Acetaminophen 650 MG Q6P PRN 11/06 2300 AC PO Albuterol Sulfate 3 ML BID 11/13 2200 AC 11/15 INH 1712 Amoxicillin/ 875 MG Q12 11/14 2200 AC Clavulanate Potassium PO Bisacodyl 5 MG DAILY 11/07 1837 AC 11/11 PO 1018 Budesonide 0.5 MG BID 11/07 2200 AC 11/15 INH 1712 Carvedilol 6.25 MG BID 11/07 1000 AC 11/12 PO 2038 Chlorhexidine 15 ML TID 11/12 2200 AC 11/13 Gluconate PO 2321 Clopidogrel Bisulfate 75 MG DAILY 11/07 1000 AC 11/11 PO 1019 Dextrose/Sodium 1,000 ML Q20H 11/07 0945 AC 11/15 Chloride IV 1850 Divalproex Sodium 125 MG BID 11/06 2330 AC 11/13 PO 2308 Docusate Sodium 100 MG DAILY 11/12 1837 AC PO Furosemide 20 MG BID 11/12 2200 AC 11/13 PO 2307 Guaifenesin 600 MG Q12 11/06 2330 AC 11/13 PO 2312 Heparin Sodium 5,000 UNIT Q8 11/07 0600 AC 11/15 (Porcine) SC 1850 Ipratropium [place] 2.5 ML BID 11/13 2200 AC 11/15 INH 1712 Olanzapine 2.5 MG Q12 11/12 2200 AC 11/13 PO 2308 Olanzapine 2.5 MG Q8P PRN 11/12 1845 AC 11/13 PO 0006 Polyethylene Glycol 17 GM DAILY PRN 11/12 1845 AC PO Ramelteon 8 MG AT BEDTIME 11/07 0100 AC 11/13 PO 2308 Senna 187 MG BID 11/14 2200 AC PO Senna 187 MG AT BEDTIME 11/07 2200 DC 11/13 PO 2312 Tamsulosin HCl 0.4 MG 1700 11/07 1700 AC 11/09 PO 1853 Vital Signs & I&O Last 24 Hrs of Vitals and I&O: Vital Signs Date Time Temp Pulse Resp B/P B/P Pulse O2 O2 Flow FiO2 Mean Ox Delivery Rate 11/15 1714 97 Nasal 3.0L Cannula 11/15 1506 97.9 78 18 106/60 93 Nasal 3.5L Cannula 11/15 1035 98 Nasal 3.0L Cannula 11/15 0800 94 Nasal 3.5L Cannula 11/15 0558 97.7 68 18 110/62 96 Nasal 3.5L Cannula 11/15 0000 Nasal 3.5L Cannula 11/14 2159 98.2 84 20 116/74 95 Room Air Intake & Output 11/15 1600 11/15 0800 11/15 0000 Intake Total 800 Output Total 350 200 300 Balance -350 600 -300 Intake, IV 800 Intake, Oral 0 Output, Urine 350 200 300 Impression/Plan Impression/Plan Impression/Plan: Physical Exam General Appearance Alert, only oriented to self not oriented to time or person Skin No Rashes, No Breakdown, No Significant Lesion Skin Temp/Moisture Exam: Warm/Dry Sepsis Skin Exam (color): Normal for Ethnicity HEENT Atraumatic, PERRLA, EOMI, dry mucous membrane Cardiovascular Regular Rate, Normal S1, Normal S2 Lungs diffuse exp wheezing Abdomen Normal Bowel Sounds, Soft, No Tenderness Neurological Normal Speech Extremities 1+ pitting edema bilaterally right leg bigger than left, chronic Vascular Normal Pulses, Pulses Symmetrical IMPRESSION This is a gentleman with chronic kidney disease, previous ischemic heart disease with previous [place], hyperlipidemia, peripheral vascular disease, previous AAA repair, who is on antiplatelet therapy for peripheral vascular disease, hypertension hyperlipidemia now here with a hip fracture s/p surg on 05/27, Recurrent delirium for very prolonged period due to multiple factors, previous urinary retention with UTI with previous urology evaluation, now comes in with * Ongoing recurrent aspiration as he has waxing and waning of worsening mental status, and pts prior wises were not to have a PEG tube and family not too keen on it with Aspiration pna * Previous chronic lung disease, with rt precarinal LN enlargement with 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, with small lung noudles * On off sig delirium / now worse * History of constipation * Pafib not a good candidate for nursing home anticoag, 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 * 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) * Previous urinary retention on Flomax with previous post void residue being high, was followed by urology, with recurrent uti, now UA appears unremarkable, now has a holden as st cath was difficult * CKD stage 3 * Previous QTC prolongation (with occasional use of atypical antipsycotics, this was used as a last resort family agreed to rx with these meds aswell as they wish more of symptomatic care) * Recent hip fracture last year * Cognitive impairment with worsening mental status in the past few months, 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 Patient on antiplatelet therapy * IHD with cardiomyopathy low ef * Hypertension and hyperlipidemia stable, Ischemic heart disease hypertension stable, Previous aaa * Sig djd cspine REC COnt abx total seven days Rpt urine culture Diet to honey consistance - see speech note Hold systemic steroids NEbs atc with duoneb q8 hrs Budesonide neb rx daily bid 0.5 mg Start Olanzapine 2.5 mg atc q12 and if unable to take po give him im Use olanzapine 2.5 inbetween if needed for sig agitation Avoid benzo COnt depakote HOld remelteon Check blood work in am including magnesium Agg bowel regimen with senna make it bid and add docusate, dulcolax and prn miralax OOB to chair if able Chlorhexide mouth wash tid daily cxr in am Keep hob up COnt flomax and holden Once stable will get a ct chest to eval for lymphadenopathy and rule out other path Prog poor and discussed with his daughter before No sig escalation of care if he gets worse Will have a family meeting in am
--- NOTE | 2016-11-15 20:12 | Transfer of Care Summary ---
Hospital Course Course Hospital Course: This is an 86 YO M with PMH significant for COPD not in home oxygen, CHF, atrial fibrillation, HTN, CAD, ischemic cardiomyopathy, [place], AAA (s/p stent placement), PVD, TIA, lung nodule, BPH, CKD, urinary retention secondary to stricture, was brought in from assisted living for shortness of breath and increased confusion. Patient was very competitive and refused all of medication yesterday including antibiotic. Has 1:1 sitter. On Puree/honey diet. 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 IV fluids increased to 75 ml/hr. Strep pneumo and Legionella antigen are negative Leno Dill MD will have meeting with the patient's family tomorrow 11/16 at 9:30 AM regarding goals of care * Duoneb 8hrly and budesonide BID * If agitated use Zyprexa 2.5 mgs BID and in between as needed. * When pt get stabilized will do CT chest of chest for further evaluation
[2016-11-15 22:29] VITALS: BP 120/60
[2016-11-16 07:14] VITALS: BP 118/70
[2016-11-16 08:16] LABS: ABSOLUTE BASOPHIL COUNT 0 /CUMM (0.0-0.2); ABSOLUTE EOSINOPHIL COUNT 0.4 /CUMM (0.0-0.7); ABSOLUTE GRANULOCYTE CT 4.6 /CUMM (1.4-6.5); ABSOLUTE LYMPH COUNT 0.9 /CUMM (1.2-3.4); ABSOLUTE MONOCYTE COUNT 0.5 /CUMM (0.10-0.60); BASOPHIL % 0.4 % (0.0-2.0); EOSINOPHIL % 6.3 % (0-5); GRANULOCYTE % 71.3 % (42.2-75.2); HEMATOCRIT 35.1 % (42-52); MEAN CORPUSCULAR HGB 32.6 PG (27.0-31.0); MEAN CORPUSCULAR HGB CONC 33.4 G/DL (33.0-37.0); MEAN CORPUSCULAR VOLUME 97.7 FL (80.0-94.0); MEAN PLATELET VOLUME 8.1 FL (7.4-10.4); PLATELET COUNT 188 /CUMM (130-400); RBC DISTRIBUTION WIDTH 16.4 % (11.5-14.5); WHITE BLOOD CELL COUNT 6.4 /CUMM (4.8-10.8)
--- NOTE | 2016-11-16 09:20 | RADIOLOGY REPORT ---
EXAMINATION: XR PORTABLE CHEST CLINICAL INFORMATION: Cough. Evaluate for aspiration pneumonia. COMPARISON: CXR from 11/06/2016 and 11/08/2016 TECHNIQUE: Portable frontal view of the chest was obtained. FINDINGS: The retrocardiac region of the left lower lobe is opacified -- a new finding compared to the recent radiographs. The border of the descending thoracic aorta, and the left diaphragm, have become obscured. Otherwise, no new findings in the lungs. The left lateral costophrenic sulcus appears blunted (possible trace pleural effusion). Cardiac silhouette is normal in size and hilar contours are normal. Bones appear diffusely osteoporotic. IMPRESSION: Left lower lobe opacity from atelectasis and/or consolidation is a new finding compared to 11/08/2016.
--- NOTE | 2016-11-16 11:22 | PN- Housestaff ---
Subjective Follow-up For: Aspiration pneumonia Delirium Subjective: Patient was seen and examined this morning, vital signs are stable, patient is cooperative, alert oriented 2, offered no complaints. No overnight events reported by the nurse. Patient took most of his medication last night and allowed nurse to draw blood for lab tests, had chest x-ray this morning as well, no agitation was reported. Review of Systems Constitutional: Reports: see HPI. Objective Last 24 Hrs of Vital Signs/I&O Vital Signs Date Time Temp Pulse Resp B/P B/P Pulse O2 O2 Flow FiO2 Mean Ox Delivery Rate 11/16 0847 93 Nasal 3.0L Cannula 11/16 0800 95 Nasal 3.5L Cannula 11/16 0714 99.0 52 20 118/70 95 Nasal 3.5L Cannula 11/16 0121 60 120/60 11/16 0000 Nasal 3.5L Cannula 11/15 2229 98.0 60 18 120/60 97 Nasal 3.0L Cannula 11/15 1714 97 Nasal 3.0L Cannula 11/15 1506 97.9 78 18 106/60 93 Nasal 3.5L Cannula Intake & Output 11/16 1600 11/16 0800 06/ 0000 Intake Total 600 300 Output Total 1200 600 Balance -600 -300 Intake, IV 600 300 Output, Urine 1200 600 Physical Exam General Appearance: Alert, Cooperative, No Acute Distress Skin: No Rashes, No Breakdown, No Significant Lesion Skin Temp/Moisture Exam: Warm/Dry HEENT: Atraumatic, PERRLA, EOMI, Mucous Membr. moist/pink Neck: Supple, No JVD Cardiovascular: Regular Rate, Normal S1, Normal S2, No Murmurs Lungs: bilateral diffuse wheeze Abdomen: Normal Bowel Sounds, Soft, No Tenderness Neurological: Normal Speech, Strength at 5/5 X4 Ext, Normal Tone, Sensation Intact, Cranial Nerves 3-12 NL, Reflexes 2+ Extremities: No Clubbing, No Cyanosis, No Edema, Normal Pulses Assessment/Plan Assessment: 86 YO M with PMH significant for COPD not in home oxygen, CHF, atrial fibrillation, HTN, CAD, ischemic cardiomyopathy, [place], AAA (s/p stent placement), PVD, TIA, lung nodule, BPH, CKD, urinary retention secondary to stricture, was brought in from assisted living for shortness of breath and increased confusion. Plan - * Patient is alert oriented 3, no report for agitation or confusion. We will DC sitter * Patient has good oral intake since yesterday afternoon, will discontinue IV fluid * Continue olanzapine 2.5 mg BID for agitation and confusion QTC on 11/16 is 490 * Avoid benzodiazepines, hold remelton * Continue nebs Duoneb 8hrly and budesonide BID * Patient is on Augmentin 875 twice a day for aspiration pneumonia * Chest x-ray was obtained today 11/16/16 that revealed left lower lobe opacity that could be atelectasis and/or consolidation, new finding * Urine for strep pneumo and Legionella antigen are negative * Blood and urine culture are negative * Family meeting for goals of care was held today DVT PPX - ALPS/Heparin Code -DNR/DNI Problem List: 1. Aspiration pneumonia 2. Wheezing 3. Delirium Pain Ratin Pain Location: none Pain Goal: Pain 4 or less Pain Plan: Mild pain pathway Tomorrow's Labs & Rationales: NONE
--- NOTE | 2016-11-16 13:28 | PN- Pulmonary ---
Subjective HPI/Critical Care Issues: Patient was seen and examined this morning, vital signs are stable, patient is cooperative, alert oriented 2, offered no complaints. No overnight events reported by the nurse. Patient took most of his medication last night and allowed nurse to draw blood for lab tests, had chest x-ray this morning as well, no agitation was reported. Review of Systems Constitutional: Reports: see HPI. Objective Current Medications: Current Medications Sig/Chirag Start time Last Medication Dose Route Stop Time Status Admin Acetaminophen 650 MG Q6P PRN 11/06 2300 AC PO Albuterol Sulfate 3 ML BID 11/13 2200 AC 11/16 INH 0807 Amoxicillin/ 875 MG Q12 11/14 220 AC 11/16 Clavulanate Potassium PO 0808 Bisacodyl 5 MG DAILY 11/07 183 AC 11/16 PO 0812 Budesonide 0.5 MG BID 11/070 AC 11/16 INH 0807 Budesonide/ 2 PUF BID 11/15 2200 AC 11/15 Formoterol Fumarate INH 2230 Carvedilol 6.25 MG BID 11/07 1000 AC 11/12 PO 2038 Chlorhexidine 15 ML TID 11/12 220 AC 11/13 Gluconate PO 2321 Clopidogrel Bisulfate 75 MG DAILY 11/07 1000 AC 11/16 PO 1234 Dextrose/Sodium 1,000 ML Q20H 11/07 0945 DC 11/16 Chloride IV 0608 Divalproex Sodium 125 MG BID 11/06 2330 AC 11/16 PO 0811 Docusate Sodium 100 MG DAILY 11/12 1837 AC 11/16 PO 1234 Furosemide 20 MG BID 11/12 2200 AC 11/16 PO 0812 Guaifenesin 600 MG Q12 11/06 2330 AC 11/16 PO 0812 Heparin Sodium 5,000 UNIT Q8 11/07 0600 AC 11/16 (Porcine) SC 0600 Ipratropium [place] 2.5 ML BID 11/13 2200 AC 11/16 INH 0806 Olanzapine 2.5 MG Q12 PRN 11/16 0055 DC PO Olanzapine 2.5 MG Q12 11/15 2200 DC PO Olanzapine 2.5 MG Q12 11/12 2200 AC 11/16 PO 1257 Olanzapine 2.5 MG Q8P PRN 11/12 1845 AC 11/13 PO 0006 Polyethylene Glycol 17 GM DAILY PRN 11/12 1845 AC PO Ramelteon 8 MG AT BEDTIME 11/07 0100 DC 11/13 PO 2308 Senna 187 MG BID 11/14 2200 AC 11/16 PO 1234 Tamsulosin HCl 0.4 MG 1700 11/07 1700 AC 11/09 PO 1853 Laboratory Tests 11/16 629 Chemistry Sodium (137 - 145 mmol/L) 139 Potassium (3.5 - 5.1 mmol/L) 4.1 Chloride (98 - 107 mmol/L) 104 Carbon Dioxide (22 - 30 mmol/L) 29 Anion Gap (5 - 16) 7 BUN (9 - 20 mg/dL) 13 Creatinine (0.7 - 1.2 mg/dL) 1.0 Estimated GFR (>60 ml/min) > 60 BUN/Creatinine Ratio (7 - 25 %) 13.0 Magnesium (1.6 - 2.3 mg/dL) 2.1 Hematology CBC w Diff NO MAN DIFF REQ WBC (4.8 - 10.8 /CUMM) 6.4 RBC (4.70 - 6.10 /CUMM) 3.60 L Hgb (14.0 - 18.0 G/DL) 11.7 L Hct (42 - 52 %) 35.1 L MCV (80.0 - 94.0 FL) 97.7 H MCH (27.0 - 31.0 PG) 32.6 H RDW (11.5 - 14.5 %) 16.4 H Plt Count (130 - 400 /CUMM) 188 MPV (7.4 - 10.4 FL) 8.1 Gran % (42.2 - 75.2 %) 71.3 Lymphocytes % (20.5 - 51.1 %) 14.3 L Monocytes % (1.7 - 9.3 %) 7.7 Eosinophils % (0 - 5 %) 6.3 H Basophils % (0.0 - 2.0 %) 0.4 Absolute Granulocytes (1.4 - 6.5 /CUMM) 4.6 Absolute Lymphocytes (1.2 - 3.4 /CUMM) 0.9 L Absolute Monocytes (0.10 - 0.60 /CUMM) 0.5 Absolute Eosinophils (0.0 - 0.7 /CUMM) 0.4 Absolute Basophils (0.0 - 0.2 /CUMM) 0 PUBS MCHC (33.0 - 37.0 G/DL) 33.4 Microbiology Date/Time Procedure - Status Source Growth 11/17 615 Urine Culture - RECD URINE ROUT Vital Signs & I&O Last 24 Hrs of Vitals and I&O: Vital Signs Date Time Temp Pulse Resp B/P B/P Pulse O2 O2 Flow FiO2 Mean Ox Delivery Rate 11/16 0847 93 Nasal 3.0L Cannula 11/16 0800 95 Nasal 3.5L Cannula 11/16 0714 99.0 52 20 118/70 95 Nasal 3.5L Cannula 11/16 0121 60 120/60 11/16 0000 Nasal 3.5L Cannula 11/15 2229 98.0 60 18 120/60 97 Nasal 3.0L Cannula 11/15 1714 97 Nasal 3.0L Cannula 11/15 1506 97.9 78 18 106/60 93 Nasal 3.5L Cannula Intake & Output 11/16 1600 11/16 0800 11/16 0000 Intake Total 600 300 Output Total 1200 600 Balance -600 -300 Intake, IV 600 300 Output, Urine 1200 600 Impression/Plan Impression/Plan Impression/Plan: Physical Exam General Appearance Alert, only oriented to self Skin No Rashes, No Breakdown, No Significant Lesion Skin Temp/Moisture Exam: Warm/Dry Sepsis Skin Exam (color): Normal for Ethnicity HEENT Atraumatic, PERRLA, EOMI, dry mucous membrane Cardiovascular Regular Rate, Normal S1, Normal S2 Lungs diffuse exp wheezing Abdomen Normal Bowel Sounds, Soft, No Tenderness Neurological Normal Speech Extremities 1+ pitting edema bilaterally right leg bigger than left, chronic Vascular Normal Pulses, Pulses Symmetrical IMPRESSION This is a gentleman with chronic kidney disease, previous ischemic heart disease with previous [place], hyperlipidemia, peripheral vascular disease, previous AAA repair, who is on antiplatelet therapy for peripheral vascular disease, hypertension hyperlipidemia now here with a hip fracture s/p surg on 05/27, Recurrent delirium for very prolonged period due to multiple factors, previous urinary retention with UTI with previous urology evaluation, now comes in with * Ongoing recurrent aspiration as he has waxing and waning of worsening mental status, and pts prior wises were not to have a PEG tube and family not too keen on it with Aspiration pna * Previous chronic lung disease, with rt precarinal LN enlargement with 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, with small lung noudles * On off sig delirium / now worse * History of constipation * 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, 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 * 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) * Previous urinary retention on Flomax with previous post void residue being high, was followed by urology, with recurrent uti, now UA appears unremarkable, now has a holden as st cath was difficult * CKD stage 3 * Previous QTC prolongation (with occasional use of atypical antipsycotics, this was used as a last resort family agreed to rx with these meds aswell as they wish more of symptomatic care) * Recent hip fracture last year * Cognitive impairment with worsening mental status in the past few months, 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 Patient on antiplatelet therapy * IHD with cardiomyopathy low ef * Hypertension and hyperlipidemia stable, Ischemic heart disease hypertension stable, Previous aaa * Sig djd cspine REC COnt abx total seven days and dc if he has had it for seven days Advance diet with no thin liquids NEbs atc with duoneb q8 hrs Budesonide neb rx daily bid 0.5 mg Olanzapine 2.5 mg atc q12 and if unable to take po give him im and when stable can reduce the dose to 2.5 qd Use olanzapine 2.5 inbetween if needed for sig agitation Avoid benzo COnt depakote HOld remelteon Check blood work in am including magnesium Agg bowel regimen with senna make it bid and add docusate, dulcolax and prn miralax OOB to chair if able PT to see if stable Will dc holden when he is more coherent Chlorhexide mouth wash tid daily Keep hob up COnt flomax and holden Family meeting held. Prog poor in a long run discussed with his daughter and son in law today and if he gets worse will consider comfort No sig escalation of care if he gets worse Needs str
[2016-11-16 14:46] VITALS: BP 116/60
[2016-11-16 22:32] VITALS: BP 118/64
[2016-11-17 06:25] VITALS: BP 116/60
--- NOTE | 2016-11-17 07:15 | PN- Housestaff ---
Subjective Follow-up For: Aspiration pneumonia Delirium Subjective: Patient was seen and examined this morning, lying comfortably in bed, denied any chest pain or abdominal pain. Over night reports about confusion, sitter was started, 1 dose of olanzapine 2 mg when necessary was given. Patient is alert, oriented to place. Review of Systems Constitutional: Reports: see HPI. Objective Last 24 Hrs of Vital Signs/I&O Vital Signs Date Time Temp Pulse Resp B/P B/P Pulse O2 O2 Flow FiO2 Mean Ox Delivery Rate 11/17 1419 97.8 56 18 110/60 97 Nasal 2.0L Cannula 11/17 1016 80 116/60 / 0834 95 Nasal 2.0L Cannula 11/17 0625 99.4 80 20 116/60 96 Nasal 2.0L Cannula 11/17 0000 97 Nasal 2.0L Cannula 11/16 2232 99.1 88 18 118/64 97 Nasal 2.0L Cannula 11/16 2142 88 118/64 / 1825 98 Nasal 3.5L Cannula Intake & Output 11/17 1600 /08 0800 11/17 0000 Intake Total 240 Output Total 850 450 350 Balance -850 -450 -110 Intake, Oral 240 Number 1 Bowel Movements Output, Urine 850 450 350 Physical Exam General Appearance: Alert, Cooperative, No Acute Distress Skin: No Rashes, No Breakdown, No Significant Lesion Skin Temp/Moisture Exam: Warm/Dry HEENT: Atraumatic, PERRLA, EOMI, Mucous Membr. moist/pink Neck: Supple Cardiovascular: Regular Rate, Normal S1, Normal S2, No Murmurs Lungs: Clear to Auscultation, Normal Air Movement Abdomen: Normal Bowel Sounds, Soft, No Tenderness Neurological: Normal Speech, Strength at 5/5 X4 Ext, Normal Tone, Sensation Intact, Cranial Nerves 3-12 NL, Reflexes 2+ Extremities: No Clubbing, No Cyanosis, No Edema, Normal Pulses, No Tenderness/ Swelling Assessment/Plan Assessment: 86 YO M with PMH significant for COPD not in home oxygen, CHF, atrial fibrillation, HTN, CAD, ischemic cardiomyopathy, [place], AAA (s/p stent placement), PVD, TIA, lung nodule, BPH, CKD, urinary retention secondary to stricture, was brought in from assisted living for shortness of breath and increased confusion. Plan - * Patient is alert oriented 1, confused overnight, sitter was started, 1 dose of when necessary olanzapine was given * IV fluid D5 half-normal 75 mL/h * Continue olanzapine 2.5 mg BID for agitation and confusion QTC on 11/16 is 490 * Avoid benzodiazepines, hold remelton * Continue nebs Duoneb 8hrly and budesonide BID * Patient is on Augmentin 875 twice a day for aspiration pneumonia * Chest x-ray was obtained today 11/16/16 that revealed left lower lobe opacity that could be atelectasis and/or consolidation, new finding * Urine for strep pneumo and Legionella antigen are negative * Blood and urine culture are negative * Family meeting for goals of care was held on 11/17/16 DVT PPX - ALPS/Heparin Code -DNR/DNI Problem List: 1. Aspiration pneumonia 2. Delirium Pain Ratin Pain Location: None Pain Goal: Pain 4 or less Pain Plan: Mild pain pathway Tomorrow's Labs & Rationales: none
--- NOTE | 2016-11-17 13:47 | PN- Pulmonary ---
Subjective HPI/Critical Care Issues: Stable Objective Current Medications: Current Medications Sig/Chirag Start time Last Medication Dose Route Stop Time Status Admin Acetaminophen 650 MG Q6P PRN 11/06 2300 AC PO Albuterol Sulfate 3 ML BID 11/13 2200 AC 11/17 INH 0810 Amoxicillin/ 875 MG Q12 11/14 2200 DC 11/16 Clavulanate Potassium PO 11/16 2300 2139 Bisacodyl 10 MG ONCE ONE 11/17 0715 DC 11/17 HI 11/17 0716 1018 Bisacodyl 5 MG DAILY 11/07 1837 AC 11/17 PO 1016 Budesonide 0.5 MG BID 11/07 2200 AC 11/17 INH 0810 Budesonide/ 2 PUF BID 11/15 2200 AC 11/17 Formoterol Fumarate INH 1017 Carvedilol 6.25 MG BID 11/07 1000 AC 11/17 PO 1016 Chlorhexidine 15 ML TID 11/12 2200 AC 11/17 Gluconate PO 1017 Clopidogrel Bisulfate 75 MG DAILY 11/07 1000 AC 11/17 PO 1013 Dextrose/Sodium 1,000 ML Q13H 11/17 0715 AC 11/17 Chloride IV 1020 Divalproex Sodium 125 MG BID 11/06 2330 AC 11/17 PO 1015 Docusate Sodium 100 MG DAILY 11/12 1837 AC 11/17 PO 1014 Furosemide 20 MG BID 11/12 2200 AC 11/17 PO 1014 Guaifenesin 600 MG Q12 11/06 2330 AC 11/17 PO 1013 Heparin Sodium 5,000 UNIT Q8 11/07 0600 AC 11/17 (Porcine) SC 0504 Ipratropium [place] 2.5 ML BID 11/13 2200 AC 11/17 INH 0813 Olanzapine 2.5 MG ONCE ONE 11/17 1999 DC IM 11/16 2000 Olanzapine 2.5 MG Q12 11/12 2200 AC 11/17 PO 1017 Olanzapine 2.5 MG Q8P PRN 11/12 1845 AC 11/16 PO 1738 Patient Medication 1 ED .STK-MED ONE 11/16 1418 DC Teaching ED 11/16 1419 Polyethylene Glycol 17 GM DAILY PRN 11/12 1845 AC PO Senna 187 MG BID 11/14 2200 AC 11/17 PO 1013 Tamsulosin HCl 0.4 MG 1700 11/07 1700 AC 11/09 PO 1853 Vital Signs & I&O Last 24 Hrs of Vitals and I&O: Vital Signs Date Time Temp Pulse Resp B/P B/P Pulse O2 O2 Flow FiO2 Mean Ox Delivery Rate 11/17 1016 80 116/60 11/17 0834 95 Nasal 2.0L Cannula 11/17 0625 99.4 80 20 116/60 96 Nasal 2.0L Cannula 11/17 0000 97 Nasal 2.0L Cannula 11/16 2232 99.1 88 18 118/64 97 Nasal 2.0L Cannula 11/16 2142 88 118/64 11/16 1825 98 Nasal 3.5L Cannula 11/16 1446 97.7 80 18 116/60 97 Nasal 3.5L Cannula Intake & Output 11/17 1600 11/17 0800 11/17 0000 Intake Total 240 Output Total 450 350 Balance -450 -110 Intake, Oral 240 Output, Urine 450 350 Impression/Plan Impression/Plan Impression/Plan: Physical Exam General Appearance Alert, only oriented to self Skin No Rashes, No Breakdown, No Significant Lesion Skin Temp/Moisture Exam: Warm/Dry Sepsis Skin Exam (color): Normal for Ethnicity HEENT Atraumatic, PERRLA, EOMI, dry mucous membrane Cardiovascular Regular Rate, Normal S1, Normal S2 Lungs diffuse exp wheezing Abdomen Normal Bowel Sounds, Soft, No Tenderness Neurological Normal Speech Extremities 1+ pitting edema bilaterally right leg bigger than left, chronic Vascular Normal Pulses, Pulses Symmetrical IMPRESSION This is a gentleman with chronic kidney disease, previous ischemic heart disease with previous [place], hyperlipidemia, peripheral vascular disease, previous AAA repair, who is on antiplatelet therapy for peripheral vascular disease, hypertension hyperlipidemia now here with a hip fracture s/p surg on 05/27, Recurrent delirium for very prolonged period due to multiple factors, previous urinary retention with UTI with previous urology evaluation, now comes in with * Ongoing recurrent aspiration as he has waxing and waning of worsening mental status, and pts prior wises were not to have a PEG tube and family not too keen on it with Aspiration pna * Previous chronic lung disease, with rt precarinal LN enlargement with 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, with small lung noudles * On off sig delirium / now worse * History of constipation * Pafib not a good candidate 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, 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 * 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) * Previous urinary retention on Flomax with previous post void residue being high, was followed by urology, with recurrent uti, now UA appears unremarkable, now has a holden as st cath was difficult * CKD stage 3 * Previous QTC prolongation (with occasional use of atypical antipsycotics, this was used as a last resort family agreed to rx with these meds aswell as they wish more of symptomatic care) * Recent hip fracture last year * Cognitive impairment with worsening mental status in the past few months, 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 Patient on antiplatelet therapy * IHD with cardiomyopathy low ef * Hypertension and hyperlipidemia stable, Ischemic heart disease hypertension stable, Previous aaa * Sig djd cspine REC Advance diet with no thin liquids NEbs atc with duoneb q8 hrs Budesonide neb rx daily bid 0.5 mg Olanzapine 2.5 mg atc q12 and if unable to take po give him im and when stable can reduce the dose to 2.5 qd Use olanzapine 2.5 inbetween if needed for sig agitation Avoid benzo COnt depakote HOld remelteon Agg bowel regimen with senna make it bid and add docusate, dulcolax and prn miralax OOB to chair if able PT to see if stable Chlorhexide mouth wash tid daily Keep hob up COnt flomax and holden Family meeting held. Prog poor in a long run discussed with his daughter and son in law today and if he gets worse will consider comfort No sig escalation of care if he gets worse Needs str soon
--- NOTE | 2016-11-17 14:02 | NUR ---
SPEECH THERAPY: PER MST AND RN REPORT, PT ABLE TO EAT 100% OF BREAKFAST THIS AM, AND APPROX. 50% OF LUNCH. MST STATES PT CONTINUES TO HAVE A BASELINE COUGH, UNRELATED TO PO INTAKE; PT ABLE TO TOLERATE BREAKFAST/LUNCH WITH NO DIFFICULTIES. PER RN, GOALS OF CARE MEETING HELD YESTERDAY. ST CONTINUE TO FOLLOW FOR DIET TOLERANCE CLINICALLY INDICATED.
[2016-11-17 14:19] VITALS: BP 110/60
[2016-11-17 21:52] VITALS: BP 120/78
[2016-11-18 06:10] VITALS: BP 118/60
--- NOTE | 2016-11-18 08:06 | RADIOLOGY REPORT ---
EXAMINATION: XR PORTABLE CHEST CLINICAL INFORMATION: Aspiration pneumonia. Worsening cough, confusion COMPARISON: 11/16/16 TECHNIQUE: Portable upright frontal view of the chest was obtained. FINDINGS: There is some kyphosis. There is ectasia of aortic arch. The cardiac size is top normal but unchanged. There is no hilar mass. No alveolar edema. No dense consolidation the right lung or left upper lung. There is opacity at the left base medially. This is slightly improved. There is no pneumothorax. There are chronic changes around both shoulders. IMPRESSION: Persistent but improved opacity left base. This may represent a combination of atelectasis, pneumonia and/or pleural fluid.
--- NOTE | 2016-11-18 08:25 | PN- Housestaff ---
Subjective Follow-up For: Aspiration pneumonia Delirium Subjective: Patient was seen and examined this morning, didn't sleep all night, confused and hallucinating. Vital signs are stable, sitter reported that he has been coughing more than usual, will obtain chest x-ray, TRC, ABG, labs. Review of Systems Constitutional: Reports: see HPI. Objective Last 24 Hrs of Vital Signs/I&O Vital Signs Date Time Temp Pulse Resp B/P B/P Pulse O2 O2 Flow FiO2 Mean Ox Delivery Rate 11/18 0819 94 Nasal 2.0L Cannula 11/18 0610 97.8 66 22 118/60 97 Nasal 2.0L Cannula 11/18 0000 Nasal 2.0L Cannula 11/17 2156 120/78 11/17 2152 97.7 69 16 120/78 97 Nasal 2.0L Cannula 11/17 1845 94 Nasal 2.0L Cannula 11/17 1758 56 110/60 11/17 1419 97.8 56 18 110/60 97 Nasal 2.0L Cannula Intake & Output 11/18 1600 11/18 0800 11/18 0000 Intake Total 600 600 Output Total 500 300 Balance 100 300 Intake, IV 600 600 Output, Urine 500 300 Physical Exam General Appearance: Mild Distress Skin: No Rashes, No Breakdown, No Significant Lesion Skin Temp/Moisture Exam: Warm/Dry HEENT: Atraumatic, PERRLA, EOMI, Mucous Membr. moist/pink Neck: Supple, No JVD Cardiovascular: Regular Rate, Normal S1, Normal S2, No Murmurs Lungs: Diffuse wheeze Abdomen: Normal Bowel Sounds, Soft Assessment/Plan Assessment: 86 YO M with PMH significant for COPD not in home oxygen, CHF, atrial fibrillation, HTN, CAD, ischemic cardiomyopathy, [place], AAA (s/p stent placement), PVD, TIA, lung nodule, BPH, CKD, urinary retention secondary to stricture, was brought in from assisted living for shortness of breath and increased confusion. Plan - * Patient is alert oriented 1, confused overnight, sitter stated that his cough is getting worse * Vital signs stable, afebrile, no leukocytosis * Increase IV fluid D5 half-normal 100mL/h * Continue olanzapine 2.5 mg BID for agitation and confusion QTC on 11/16 is 490 * Avoid benzodiazepines, hold remelton * Continue nebs Duoneb 8hrly and budesonide BID * Patient finished antibiotic course of Augmentin 875 twice a day for aspiration pneumonia * Chest x-ray was obtained 11/16/16 that revealed left lower lobe opacity that could be atelectasis and/or consolidation, new finding * Chest x-ray obtained today 11/18/16 revealed Persistent but improved opacity left base. This may represent a combination of atelectasis, pneumonia and/or pleural fluid * Urine for strep pneumo and Legionella antigen are negative * Blood and urine culture are negative * Family meeting for goals of care was held on 11/17/16 no escalation of care DVT PPX - ALPS/Heparin Code -DNR/DNI Problem List: 1. Aspiration pneumonia 2. Delirium Pain Ratin Pain Location: none Pain Goal: Pain 4 or less Pain Plan: mild pain pathway Tomorrow's Labs & Rationales: none
[2016-11-18 09:06] LABS: ABSOLUTE BASOPHIL COUNT 0 /CUMM (0.0-0.2); ABSOLUTE EOSINOPHIL COUNT 0.5 /CUMM (0.0-0.7); ABSOLUTE GRANULOCYTE CT 4.3 /CUMM (1.4-6.5); ABSOLUTE LYMPH COUNT 1.3 /CUMM (1.2-3.4); ABSOLUTE MONOCYTE COUNT 0.5 /CUMM (0.10-0.60); BASOPHIL % 0.4 % (0.0-2.0); EOSINOPHIL % 7.7 % (0-5); GRANULOCYTE % 65.5 % (42.2-75.2); HEMATOCRIT 30.5 % (42-52); MEAN CORPUSCULAR HGB 32.6 PG (27.0-31.0); MEAN CORPUSCULAR HGB CONC 33.7 G/DL (33.0-37.0); MEAN CORPUSCULAR VOLUME 96.8 FL (80.0-94.0); MEAN PLATELET VOLUME 8.2 FL (7.4-10.4); PLATELET COUNT 197 /CUMM (130-400); RBC DISTRIBUTION WIDTH 16.1 % (11.5-14.5); RED BLOOD CELL CT 3.15 /CUMM (4.70-6.10); WHITE BLOOD CELL COUNT 6.6 /CUMM (4.8-10.8)
--- NOTE | 2016-11-18 13:59 | PN- Pulmonary ---
Subjective HPI/Critical Care Issues: sig deterioration again Now sleepy Objective Current Medications: Current Medications Sig/Chirag Start time Last Medication Dose Route Stop Time Status Admin Acetaminophen 650 MG Q6P PRN 11/06 2300 AC PO Albuterol Sulfate 3 ML BID 11/13 2200 AC 11/18 INH 0816 Bisacodyl 5 MG DAILY 11/07 1837 AC 11/17 PO 1016 Budesonide 0.5 MG BID 11/07 2200 AC 11/18 INH 0815 Budesonide/ 2 PUF BID 11/15 2200 AC 11/17 Formoterol Fumarate INH 2157 Carvedilol 6.25 MG BID 11/07 1000 AC 11/17 PO 2156 Chlorhexidine 15 ML TID 11/12 2200 AC 11/17 Gluconate PO 2156 Clopidogrel Bisulfate 75 MG DAILY 11/07 1000 AC 11/17 PO 1013 Dextrose/Sodium 1,000 ML Q13H 11/17 0715 AC 11/18 Chloride IV 0110 Divalproex Sodium 250 MG BID 11/18 2199 DC PO Divalproex Sodium 125 MG BID 11/18 220 UNVr PO Divalproex Sodium 125 MG BID 11/06 2330 DC 11/17 PO 2156 Docusate Sodium 100 MG DAILY 11/12 1837 AC 11/17 PO 1014 Furosemide 20 MG BID 11/12 220 AC 11/17 PO 2156 Guaifenesin 600 MG Q12 11/06 2330 AC 11/17 PO 2156 Heparin Sodium 5,000 UNIT Q8 11/07 0600 AC 11/18 (Porcine) SC 0633 Ipratropium [place] 2.5 ML BID 11/13 220 AC 11/18 INH 0816 Olanzapine 2.5 MG Q12 11/12 2200 AC 11/17 PO 2156 Olanzapine 2.5 MG Q8P PRN 11/12 1845 AC 11/16 PO 1738 Polyethylene Glycol 17 GM DAILY PRN 11/12 1845 AC PO Ramelteon 8 MG QPM 11/18 2200 DC PO Ramelteon 8 MG QPM PRN 11/18 1400 UNVr PO Senna 187 MG BID 11/14 2200 AC 11/17 PO 2156 Tamsulosin HCl 0.4 MG 1700 11/07 1700 AC 11/17 PO 1758 Vital Signs & I&O Last 24 Hrs of Vitals and I&O: Vital Signs Date Time Temp Pulse Resp B/P B/P Pulse O2 O2 Flow FiO2 Mean Ox Delivery Rate 11/18 0819 94 Nasal 2.0L Cannula 11/18 0610 97.8 66 22 118/60 97 Nasal 2.0L Cannula 11/18 0000 Nasal 2.0L Cannula 11/17 2156 120/78 11/17 2152 97.7 69 16 120/78 97 Nasal 2.0L Cannula 11/17 1845 94 Nasal 2.0L Cannula 11/17 1758 56 110/60 11/17 1419 97.8 56 18 110/60 97 Nasal 2.0L Cannula Intake & Output 11/18 1600 11/18 0800 11/18 0000 Intake Total 600 600 Output Total 500 500 300 Balance -500 100 300 Intake, IV 600 600 Output, Urine 500 500 300 Impression/Plan Impression/Plan Impression/Plan: Physical Exam General Appearance Alert, only oriented to self Skin No Rashes, No Breakdown, No Significant Lesion Skin Temp/Moisture Exam: Warm/Dry Sepsis Skin Exam (color): Normal for Ethnicity HEENT Atraumatic, PERRLA, EOMI, dry mucous membrane Cardiovascular Regular Rate, Normal S1, Normal S2 Lungs diffuse exp wheezing Abdomen Normal Bowel Sounds, Soft, No Tenderness Neurological Normal Speech Extremities 1+ pitting edema bilaterally right leg bigger than left, chronic Vascular Normal Pulses, Pulses Symmetrical IMPRESSION This is a gentleman with chronic kidney disease, previous ischemic heart disease with previous [place], hyperlipidemia, peripheral vascular disease, previous AAA repair, who is on antiplatelet therapy for peripheral vascular disease, hypertension hyperlipidemia now here with a hip fracture s/p surg on 05/27, Recurrent delirium for very prolonged period due to multiple factors, previous urinary retention with UTI with previous urology evaluation, now comes in with * Ongoing recurrent aspiration as he has waxing and waning of worsening mental status, and pts prior wises were not to have a PEG tube and family not too keen on it with Aspiration pna * Previous chronic lung disease, with rt precarinal LN enlargement with 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, with small lung noudles * On off sig delirium / now worse * History of constipation * Pafib not a good candidate for senior care anticoag, 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 * 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) * Previous urinary retention on Flomax with previous post void residue being high, was followed by urology, with recurrent uti, now UA appears unremarkable, now has a holden as st cath was difficult * CKD stage 3 * Previous QTC prolongation (with occasional use of atypical antipsycotics, this was used as a last resort family agreed to rx with these meds aswell as they wish more of symptomatic care) * Recent hip fracture last year * Cognitive impairment with worsening mental status in the past few months, 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 Patient on antiplatelet therapy * IHD with cardiomyopathy low ef * Hypertension and hyperlipidemia stable, Ischemic heart disease hypertension stable, Previous aaa * Sig djd cspine REC Advance diet with no thin liquids NEbs atc with duoneb q8 hrs Budesonide neb rx daily bid 0.5 mg Olanzapine 2.5 mg atc q12 and if unable to take po give him im and when stable can reduce the dose to 2.5 qd Use olanzapine 2.5 inbetween if needed for sig agitation Avoid benzo COnt depakote and can increase the dose today can resumeremelteon Agg bowel regimen with senna make it bid and add docusate, dulcolax and prn miralax OOB to chair if able PT to see if stable Chlorhexide mouth wash tid daily Keep hob up COnt flomax and holden Family meeting held. Prog poor in a long run discussed with his daughter and son in law today and if he gets worse will consider comfort No sig escalation of care if he gets worse, no ICU or BIPAP no unnecessary investigations
[2016-11-18 14:29] VITALS: BP 122/58
--- NOTE | 2016-11-18 17:10 | NUR ---
SPEECH THERAPY: PT CURRENTLY SLEEPING AT BEDSIDE; PER 1:1 SITTER, PT HAS BEEN LETHARGIC THE WHOLE DAY. RN STATES PO MEDS WERE HELD A RESULT OF LETHARGIC STATE. PER REPORT, GOALS OF CARE DISCUSSION ONGOING. REC PT ONLY BE ALLOWED PUREE/HONEY THICK LIQUIDS IF SUFFICIENTLY AWAKE/ALERT, D/W RN.
[2016-11-18 23:08] VITALS: BP 122/64
[2016-11-19 06:00] VITALS: BP 118/74
--- NOTE | 2016-11-19 08:12 | PN- Att Addend ---
Attending Addendum Attending Brief Note Covering attending note. Patient is awake alert but confused scarred indwelling Granado catheter. Current Medications Sig/Chirag Start time Last Medication Dose Route Stop Time Status Admin Acetaminophen 650 MG Q6P PRN 11/06 2300 AC PO Albuterol Sulfate 3 ML BID 11/13 2200 AC 11/18 INH 1905 Bisacodyl 5 MG DAILY 11/07 1837 AC 11/17 PO 1016 Budesonide 0.5 MG BID 11/07 2200 AC 11/18 INH 1905 Budesonide/ 2 PUF BID 11/15 2200 AC 11/17 Formoterol Fumarate INH 2157 Carvedilol 6.25 MG BID 11/07 1000 AC 11/17 PO 2156 Chlorhexidine 15 ML TID 11/12 2200 AC 11/17 Gluconate PO 2156 Clopidogrel Bisulfate 75 MG DAILY 11/07 1000 AC 11/17 PO 1013 Dextrose/Sodium 1,000 ML Q13H 11/17 0715 AC 11/19 Chloride IV 0233 Divalproex Sodium 250 MG BID 11/18 220 DC PO Divalproex Sodium 125 MG BID 11/18 2200 AC PO Divalproex Sodium 125 MG BID 11/06 2330 DC / PO 2156 Docusate Sodium 100 MG DAILY 11/12 1837 AC 11/17 PO 1014 Furosemide 20 MG BID 11/12 2200 AC 11/17 PO 2156 Guaifenesin 600 MG Q12 11/06 2330 AC 11/17 PO 2156 Heparin Sodium 5,000 UNIT Q8 11/07 0600 AC 11/19 (Porcine) SC 0543 Ipratropium [place] 2.5 ML BID 11/13 2200 AC 11/18 INH 1905 Olanzapine 2.5 MG Q12 11/12 2200 AC 11/17 PO 2156 Olanzapine 2.5 MG Q8P PRN 11/12 1845 AC 11/18 PO 1845 Patient Medication 1 ED .STK-MED ONE 11/18 1405 DC Teaching ED 11/18 1406 Polyethylene Glycol 17 GM DAILY PRN 11/12 1845 AC PO Ramelteon 8 MG QPM 11/18 2200 DC PO Ramelteon 8 MG QPM PRN 11/18 1400 AC PO Senna 187 MG BID 11/14 2200 AC 11/17 PO 2156 Tamsulosin HCl 0.4 MG 1700 11/07 1700 AC 11/17 PO 1758 Laboratory Tests 11/18 0807 Chemistry Sodium (137 - 145 mmol/L) 137 Potassium (3.5 - 5.1 mmol/L) 4.0 Chloride (98 - 107 mmol/L) 102 Carbon Dioxide (22 - 30 mmol/L) 28 Anion Gap (5 - 16) 7 BUN (9 - 20 mg/dL) 17 Creatinine (0.7 - 1.2 mg/dL) 1.1 Estimated GFR (>60 ml/min) > 60 BUN/Creatinine Ratio (7 - 25 %) 15.5 Magnesium (1.6 - 2.3 mg/dL) 1.9 Hematology CBC w Diff NO MAN DIFF REQ WBC (4.8 - 10.8 /CUMM) 6.6 RBC (4.70 - 6.10 /CUMM) 3.15 L Hgb (14.0 - 18.0 G/DL) 10.3 L Hct (42 - 52 %) 30.5 L MCV (80.0 - 94.0 FL) 96.8 H MCH (27.0 - 31.0 PG) 32.6 H RDW (11.5 - 14.5 %) 16.1 H Plt Count (130 - 400 /CUMM) 197 MPV (7.4 - 10.4 FL) 8.2 Gran % (42.2 - 75.2 %) 65.5 Lymphocytes % (20.5 - 51.1 %) 19.0 L Monocytes % (1.7 - 9.3 %) 7.4 Eosinophils % (0 - 5 %) 7.7 H Basophils % (0.0 - 2.0 %) 0.4 Absolute Granulocytes (1.4 - 6.5 /CUMM) 4.3 Absolute Lymphocytes (1.2 - 3.4 /CUMM) 1.3 Absolute Monocytes (0.10 - 0.60 /CUMM) 0.5 Absolute Eosinophils (0.0 - 0.7 /CUMM) 0.5 Absolute Basophils (0.0 - 0.2 /CUMM) 0 PUBS MCHC (33.0 - 37.0 G/DL) 33.7 Vital Signs Date Time Temp Pulse Resp B/P B/P Pulse O2 O2 Flow FiO2 Mean Ox Delivery Rate 11/19 0600 97.6 56 24 118/74 92 Nasal Cannula 11/19 0000 95 Nasal 2.0L Cannula 11/18 2308 98.5 70 20 122/64 95 Nasal 2.0L Cannula 11/18 1906 93 Nasal 2.0L Cannula 11/18 1600 Nasal 2.0L Cannula 11/18 1429 98.2 62 20 122/58 94 Nasal 2.0L Cannula 11/18 0819 94 Nasal 2.0L Cannula Intake & Output 11/19 1600 11/19 0800 11/19 0000 Intake Total 600 600 Output Total 700 1050 Balance -100 -450 Intake, IV 600 600 Output, Urine 700 1050 On examination Patient is awake alert but confused. Skin is warm and dry Neck is supple S1-S2 is normal Lungs diminished breath sounds both bases Abdomen soft nontender bowel sounds are present His current indwelling Granado catheter Extremities no calf tenderness present. Assessment Dementia with change of mental status questionable delirium with the history of aspiration pneumonia. Family does not want any escalation of care Conservative management conservative management Patient Multiple comorbid conditions including CKG stage III, ischemic cardiomyopathy ejection fraction 40% History of poor gag reflex History of BPH. With indwelling Granado catheter
--- NOTE | 2016-11-19 08:27 | PN- Housestaff ---
Subjective Follow-up For: Aspiration pneumonia Delirium Subjective: Patient was seen and examined the morning, likely doubly in bed, continued to be confused, no overnight events. Vital signs are stable. Review of Systems Constitutional: Reports: see HPI. Objective Last 24 Hrs of Vital Signs/I&O Vital Signs Date Time Temp Pulse Resp B/P B/P Pulse O2 O2 Flow FiO2 Mean Ox Delivery Rate 11/19 0841 92 Nasal 1.0L Cannula 11/19 0600 97.6 56 24 118/74 92 Nasal Cannula 11/19 0000 95 Nasal 2.0L Cannula 11/18 2308 98.5 70 20 122/64 95 Nasal 2.0L Cannula 11/18 1906 93 Nasal 2.0L Cannula 11/18 1600 Nasal 2.0L Cannula 11/18 1429 98.2 62 20 122/58 94 Nasal 2.0L Cannula Intake & Output 11/19 1600 11/19 0800 11/19 0000 Intake Total 600 600 Output Total 700 1050 Balance -100 -450 Intake, IV 600 600 Output, Urine 700 1050 Physical Exam General Appearance: Alert, Cooperative, No Acute Distress Skin: No Rashes, No Breakdown, No Significant Lesion Cardiovascular: Regular Rate, Normal S1, Normal S2, No Murmurs Lungs: Clear to Auscultation, Normal Air Movement Abdomen: Normal Bowel Sounds, Soft, No Tenderness, No Hepatospenomegaly, No Masses Neurological: Normal Speech, Strength at 5/5 X4 Ext, Normal Tone, Sensation Intact, Cranial Nerves 3-12 NL, Reflexes 2+ Extremities: No Clubbing, No Cyanosis, No Edema, Normal Pulses, No Tenderness/ Swelling Assessment/Plan Assessment: 86 YO M with PMH significant for COPD not in home oxygen, CHF, atrial fibrillation, HTN, CAD, ischemic cardiomyopathy, [place], AAA (s/p stent placement), PVD, TIA, lung nodule, BPH, CKD, urinary retention secondary to stricture, was brought in from assisted living for shortness of breath and increased confusion. Plan - * Patient is alert oriented 1, confused overnight, sitter stated that his cough is getting worse * Vital signs stable, afebrile, no leukocytosis * Increase IV fluid D5 half-normal 100mL/h * Continue olanzapine 2.5 mg BID for agitation and confusion QTC on 11/16 is 490 * Avoid benzodiazepines, hold remelton * Continue nebs Duoneb 8hrly and budesonide BID * Patient finished antibiotic course of Augmentin 875 twice a day for aspiration pneumonia * Chest x-ray was obtained 11/16/16 that revealed left lower lobe opacity that could be atelectasis and/or consolidation, new finding * Chest x-ray obtained today 11/18/16 revealed Persistent but improved opacity left base. This may represent a combination of atelectasis, pneumonia and/or pleural fluid * Urine for strep pneumo and Legionella antigen are negative * Blood and urine culture are negative * Family meeting for goals of care was held on 11/17/16 no escalation of care DVT PPX - ALPS/Heparin Code -DNR/DNI Problem List: 1. Aspiration pneumonia 2. Delirium Pain Ratin Pain Location: none Pain Goal: Pain 4 or less Pain Plan: Mild pain pathway Tomorrow's Labs & Rationales: NONE
[2016-11-19 14:43] VITALS: BP 114/80
--- NOTE | 2016-11-19 15:00 | NUR ---
LATE ENTRY: REPORT GIVEN TO ONCOMING RN. PT STABLE AND IN NO DISTRESS. EVENING RN TO RESUME CARE FOR PT AT THIS TIME.
--- NOTE | 2016-11-19 16:43 | NUR ---
LATE ENTRY: RN HAD RESUMED CARE FOR PT AGAIN AT 11 AM TODAY. THIS RN HAS CARD FOR PT A FEW TIMES INCLUDING WHEN PT WAS FIRST ADMITTED TO HOSPITAL. PT NOTED WITH SKIN TEAR FROM ADMISSION THAT STILL HAS NOT HEALED. DR. PAUL CONTACTED FOR WOUND CARE ORDERS. PENDING NEW ORDERS. [employer] DSG PLACED. PT STABLE AND IN NO DISTRESS. LAURA WILCOX TO CONTINUE CARE FOR PT.
--- NOTE | 2016-11-19 19:07 | NUR ---
PT RESTING COMFORTABLY, WITH PSM IN PLACE. WILL MOAN OUT LOUD AT TIMES, OTHERWISE QUIET. ABLE TO GIVE MEDS WITH MAGIC CUP. COOK IN PLACE, DRAINING CLEAR YELLOW URINE. DSG TO R HAND CDI. SAFETY MAINTAINED.
[2016-11-19 22:12] VITALS: BP 102/68
--- NOTE | 2016-11-19 23:56 | NUR ---
COREG 6.25 MG HELD FOR BP OF 102/67 & HR 57. PARLIAMENTARY LIBRARIAN IMGE SHANTAL INFORMED.
[2016-11-20 06:46] VITALS: BP 106/58
--- NOTE | 2016-11-20 08:17 | PN- Housestaff ---
Subjective Follow-up For: Aspiration pneumonia Delirium Subjective: Patient was seen and examined this morning, he has been sleeping since yesterday evening, upon waking him up he opened his eyes to painful stimuli, was combative and pushing very hard. Didn't answer any of my questions. Vital signs are stable. Review of Systems Constitutional: Reports: see HPI. Objective Last 24 Hrs of Vital Signs/I&O Vital Signs Date Time Temp Pulse Resp B/P B/P Pulse O2 O2 Flow FiO2 Mean Ox Delivery Rate 11/20 0814 93 Nasal 2.0L Cannula 11/20 0646 97.3 56 18 106/58 93 Nasal 1.5L Cannula 11/20 0400 Nasal 1.5L Cannula 11/19 2212 98.0 57 18 102/68 94 Nasal 2.0L Cannula 11/19 2209 57 102/67 11/19 2047 Nasal 2.0L Cannula 11/19 1635 60 114/80 11/19 1600 95 Nasal 1.5L Cannula 11/19 1454 60 114/80 11/19 1443 98.9 62 24 114/80 95 Nasal 1.5L Cannula 11/19 1100 92 Nasal 1.5L Cannula Intake & Output 11/20 1600 11/20 0800 11/20 0000 Intake Total 1160 Output Total 1200 925 Balance -1200 235 Intake, IV 800 Intake, Oral 360 Output, Urine 1200 925 Physical Exam General Appearance: No Acute Distress Skin: No Rashes, No Breakdown, No Significant Lesion HEENT: Atraumatic, PERRLA, Mucous Membr. moist/pink, right eye pinpoint, motor 5 /5 could be physiological ansicoria Neck: Supple Cardiovascular: Regular Rate, Normal S1, Normal S2, No Murmurs Lungs: Clear to Auscultation, Normal Air Movement Abdomen: Normal Bowel Sounds, Soft, No Tenderness, No Hepatospenomegaly, No Masses Extremities: No Clubbing, No Cyanosis, No Edema, Normal Pulses, No Tenderness/ Swelling Assessment/Plan Assessment: 86 YO M with PMH significant for COPD not in home oxygen, CHF, atrial fibrillation, HTN, CAD, ischemic cardiomyopathy, [place], AAA (s/p stent placement), PVD, TIA, lung nodule, BPH, CKD, urinary retention secondary to stricture, was brought in from assisted living for shortness of breath and increased confusion. Plan - * Patient is alert oriented 1, confused overnight, sitter stated that his cough is getting worse * Vital signs stable, afebrile, no leukocytosis * Increase IV fluid D5 half-normal 100mL/h * Continue olanzapine 2.5 mg BID for agitation and confusion QTC on 11/16 is 490 * Avoid benzodiazepines, hold remelton * Continue nebs Duoneb 8hrly and budesonide BID * Patient finished antibiotic course of Augmentin 875 twice a day for aspiration pneumonia * Chest x-ray was obtained 11/16/16 that revealed left lower lobe opacity that could be atelectasis and/or consolidation, new finding * Chest x-ray obtained today 11/18/16 revealed Persistent but improved opacity left base. This may represent a combination of atelectasis, pneumonia and/or pleural fluid * Urine for strep pneumo and Legionella antigen are negative * Blood and urine culture are negative * Family meeting for goals of care was held on 11/17/16 no escalation of care DVT PPX - ALPS/Heparin Code -DNR/DNI Problem List: 1. Aspiration pneumonia 2. Delirium Pain Ratin Pain Location: NONE Pain Goal: Pain 4 or less Pain Plan: mild pain pathway Tomorrow's Labs & Rationales: BMP
[2016-11-20 08:43] LABS: ABSOLUTE BASOPHIL COUNT 0 /CUMM (0.0-0.2); ABSOLUTE EOSINOPHIL COUNT 0.5 /CUMM (0.0-0.7); ABSOLUTE GRANULOCYTE CT 4.4 /CUMM (1.4-6.5); ABSOLUTE LYMPH COUNT 1.2 /CUMM (1.2-3.4); ABSOLUTE MONOCYTE COUNT 0.5 /CUMM (0.10-0.60); BASOPHIL % 0.3 % (0.0-2.0); EOSINOPHIL % 7.7 % (0-5); GRANULOCYTE % 66.8 % (42.2-75.2); HEMATOCRIT 29.2 % (42-52); MEAN CORPUSCULAR HGB 32.3 PG (27.0-31.0); MEAN CORPUSCULAR HGB CONC 33.1 G/DL (33.0-37.0); MEAN CORPUSCULAR VOLUME 97.7 FL (80.0-94.0); MEAN PLATELET VOLUME 8.1 FL (7.4-10.4); PLATELET COUNT 205 /CUMM (130-400); RBC DISTRIBUTION WIDTH 16.3 % (11.5-14.5); RED BLOOD CELL CT 2.98 /CUMM (4.70-6.10); WHITE BLOOD CELL COUNT 6.6 /CUMM (4.8-10.8)
--- NOTE | 2016-11-20 10:51 | PN- Att Addend ---
Attending Addendum Attending Brief Note Covering attending note. Patient is still confused has been sleeping arousable to painful stimulus. Patient does not much change from yesterday. He is still has got congested cough. Intake & Output 11/20 1600 11/20 0800 11/20 0000 Intake Total 1160 Output Total 1200 925 Balance -1200 235 Intake, IV 800 Intake, Oral 360 Output, Urine 1200 925 Current Medications Sig/Chirag Start time Last Medication Dose Route Stop Time Status Admin Acetaminophen 650 MG Q6P PRN 11/06 2300 AC PO Albuterol Sulfate 3 ML BID 11/13 2200 AC 11/20 INH 0812 Bisacodyl 5 MG DAILY 11/07 1837 AC 11/19 PO 1453 Budesonide 0.5 MG BID 11/07 2200 AC 11/20 INH 0811 Budesonide/ 2 PUF BID 11/15 2200 AC 11/19 Formoterol Fumarate INH 1230 Carvedilol 6.25 MG BID 11/07 1000 AC 11/19 PO 1454 Chlorhexidine 15 ML TID 11/12 2200 AC 11/19 Gluconate PO 2211 Clopidogrel Bisulfate 75 MG DAILY 11/07 1000 AC 11/19 PO 1453 Dextrose/Sodium 1,000 ML Q13H 11/17 0715 AC 11/19 Chloride IV 2222 Divalproex Sodium 125 MG BID 11/18 2200 AC 11/19 PO 2209 Docusate Sodium 100 MG DAILY 11/12 1837 AC 11/19 PO 1453 Furosemide 20 MG BID 11/12 2200 AC 11/19 PO 2210 Guaifenesin 600 MG Q12 11/06 2330 AC 11/17 PO 2156 Heparin Sodium 5,000 UNIT Q8 11/07 0600 AC 11/20 (Porcine) SC 0535 Ipratropium [place] 2.5 ML BID 11/13 2200 AC 11/20 INH 0811 Olanzapine 2.5 MG Q12 11/12 2200 AC 11/19 PO 2215 Olanzapine 2.5 MG Q8P PRN 11/12 1845 AC 11/18 PO 1845 Polyethylene Glycol 17 GM DAILY PRN 11/12 1845 AC PO Ramelteon 8 MG QPM PRN 11/18 1400 AC PO Senna 187 MG BID 11/14 2200 AC 11/19 PO 2210 Tamsulosin HCl 0.4 MG 1700 05/29 1700 AC 11/19 PO 1635 Laboratory Tests 11/20 0738 Chemistry Sodium (137 - 145 mmol/L) 137 Potassium (3.5 - 5.1 mmol/L) 3.7 Chloride (98 - 107 mmol/L) 102 Carbon Dioxide (22 - 30 mmol/L) 29 Anion Gap (5 - 16) 5 BUN (9 - 20 mg/dL) 15 Creatinine (0.7 - 1.2 mg/dL) 1.0 Estimated GFR (>60 ml/min) > 60 BUN/Creatinine Ratio (7 - 25 %) 15.0 Hematology CBC w Diff NO MAN DIFF REQ WBC (4.8 - 10.8 /CUMM) 6.6 RBC (4.70 - 6.10 /CUMM) 2.98 L Hgb (14.0 - 18.0 G/DL) 9.6 L Hct (42 - 52 %) 29.2 L MCV (80.0 - 94.0 FL) 97.7 H MCH (27.0 - 31.0 PG) 32.3 H RDW (11.5 - 14.5 %) 16.3 H Plt Count (130 - 400 /CUMM) 205 MPV (7.4 - 10.4 FL) 8.1 Gran % (42.2 - 75.2 %) 66.8 Lymphocytes % (20.5 - 51.1 %) 18.1 L Monocytes % (1.7 - 9.3 %) 7.1 Eosinophils % (0 - 5 %) 7.7 H Basophils % (0.0 - 2.0 %) 0.3 Absolute Granulocytes (1.4 - 6.5 /CUMM) 4.4 Absolute Lymphocytes (1.2 - 3.4 /CUMM) 1.2 Absolute Monocytes (0.10 - 0.60 /CUMM) 0.5 Absolute Eosinophils (0.0 - 0.7 /CUMM) 0.5 Absolute Basophils (0.0 - 0.2 /CUMM) 0 PUBS MCHC (33.0 - 37.0 G/DL) 33.1 Vital Signs Date Time Temp Pulse Resp B/P B/P Pulse O2 O2 Flow FiO2 Mean Ox Delivery Rate 11/20 0814 93 Nasal 2.0L Cannula 11/20 0646 97.3 56 18 106/58 93 Nasal 1.5L Cannula 11/20 0400 Nasal 1.5L Cannula 11/19 2212 98.0 57 18 102/68 94 Nasal 2.0L Cannula 11/19 2209 57 102/67 11/19 2047 Nasal 2.0L Cannula 11/19 1635 60 114/80 11/19 1600 95 Nasal 1.5L Cannula 11/19 1454 60 114/80 11/19 1443 98.9 62 24 114/80 95 Nasal 1.5L Cannula 11/19 1100 92 Nasal 1.5L Cannula Intake & Output 11/20 1600 11/20 0800 11/20 0000 Intake Total 1160 Output Total 1200 925 Balance -1200 235 Intake, IV 800 Intake, Oral 360 Output, Urine 1200 925 On examination Patient is drowsy but arousable eschar of a congested cough. Mucous membrane is dry Neck is supple S1-S2 is normal Lungs shows diffuse rhonchi with wheezing diminished breath sounds both bases Abdomen is soft nontender bowel sounds are present Assessment Elderly gentleman with COPD CHF and atrial fibrillation also ischemic cardiomyopathy failure to thrive. Currently on IV fluids supportive care with DuoNeb treatments he is a risk for aspiration history of aspiration more in the past Discussion with the family no escalation of care mostly comfort care.
[2016-11-20 15:11] VITALS: BP 102/60
--- NOTE | 2016-11-20 19:10 | NUR ---
PATIENT DROWSY, BUT AROUSABLE. MOANING AT TIMES. NO DISTRESS. PSM MAINTAINED. COOK DRAINING CLEAR YELLOW URINE.
[2016-11-20 22:00] VITALS: BP 108/60
[2016-11-21 06:24] VITALS: BP 98/62
--- NOTE | 2016-11-21 07:15 | PN- Housestaff ---
Subjective Follow-up For: Aspiration pneumonia Delirium Subjective: Patient was seen and examined this morning, continued to be confused with hallucination. Hypotensive 90/60, distal vital signs are stable, on 4 L nasal cannula saturating 96% Review of Systems Constitutional: Reports: see HPI. Objective Last 24 Hrs of Vital Signs/I&O Vital Signs Date Time Temp Pulse Resp B/P B/P Pulse O2 O2 Flow FiO2 Mean Ox Delivery Rate 11/21 1454 98.6 65 20 110/62 96 Nasal 4.0L Cannula 11/21 1012 62 98/62 11/21 0914 96 Nasal 2.0L Cannula 11/21 0800 96 Nasal 0.5L Cannula 11/21 0624 97.9 62 20 98/62 98 11/21 0000 Nasal 0.5L Cannula 11/20 2200 98.3 60 18 108/60 95 Nasal 0.5L Cannula 11/20 2135 62 108/60 11/20 2058 93 Nasal 2.0L Cannula 11/20 1643 60 102/60 11/20 1600 96 Nasal 0.5L Cannula 11/20 1511 97.9 60 18 102/60 96 Nasal 4.0L Cannula Intake & Output 11/21 1600 11/21 0800 11/21 0000 Intake Total 1370 1280 1160 Output Total 917 181 0092 Balance 570 630 -240 Intake, IV 750 800 800 Intake, Oral 620 480 360 Number 0 Bowel Movements Output, Urine 063 257 5459 Physical Exam General Appearance: Alert, Cooperative, No Acute Distress Skin: No Rashes HEENT: Atraumatic, PERRLA, EOMI, Mucous Membr. moist/pink Cardiovascular: Regular Rate, Normal S1, Normal S2, No Murmurs Lungs: Normal Air Movement Abdomen: Normal Bowel Sounds, Soft, No Tenderness, No Hepatospenomegaly, No Masses Extremities: No Clubbing, No Cyanosis, No Edema, Normal Pulses, No Tenderness/ Swelling Assessment/Plan Assessment: 86 YO M with PMH significant for COPD not in home oxygen, CHF, atrial fibrillation, HTN, CAD, ischemic cardiomyopathy, [place], AAA (s/p stent placement), PVD, TIA, lung nodule, BPH, CKD, urinary retention secondary to stricture, was brought in from assisted living for shortness of breath and increased confusion. Plan - * Patient is confused, has sitter * Will discontinue Cardizem as patient has hypotension * Continue IV fluid D5 half-normal 100mL/h * Continue olanzapine 2.5 mg BID for agitation and confusion QTC on 11/16 is 490 * Ramelteon when necessary for insomnia and anxiety * Avoid benzodiazepines, hold remelton * Continue nebs Duoneb 8hrly and budesonide BID * Patient finished antibiotic course of Augmentin 875 twice a day for aspiration pneumonia * Chest x-ray was obtained 11/16/16 that revealed left lower lobe opacity that could be atelectasis and/or consolidation, new finding * Chest x-ray obtained today 11/18/16 revealed Persistent but improved opacity left base. This may represent a combination of atelectasis, pneumonia and/or pleural fluid * Urine for strep pneumo and Legionella antigen are negative * Blood and urine culture are negative * Family meeting for goals of care was held on 11/17/16 no escalation of care DVT PPX - ALPS/Heparin Code -DNR/DNI Problem List: 1. Delirium 2. Aspiration pneumonia Pain Ratin Pain Location: None Pain Goal: Pain 4 or less Pain Plan: Mild pain pathway Tomorrow's Labs & Rationales: None
--- NOTE | 2016-11-21 10:08 | PN- Pulmonary ---
Subjective HPI/Critical Care Issues: Still has lethrgy Did eat breakfast BP low Objective Current Medications: Current Medications Sig/Chirag Start time Last Medication Dose Route Stop Time Status Admin Acetaminophen 650 MG Q6P PRN 11/06 2300 AC PO Albuterol Sulfate 3 ML BID 11/13 2200 AC 11/21 INH 0913 Bisacodyl 5 MG DAILY 11/07 1837 AC 11/20 PO 1211 Budesonide 0.5 MG BID 11/07 2200 AC 11/21 INH 0913 Budesonide/ 2 PUF BID 11/15 2200 AC 11/19 Formoterol Fumarate INH 1230 Carvedilol 6.25 MG BID 11/07 1000 AC 11/19 PO 1454 Chlorhexidine 15 ML TID 11/12 220 AC 11/20 Gluconate PO 2136 Clopidogrel Bisulfate 75 MG DAILY 11/07 1000 AC 11/19 PO 1453 Dextrose/Sodium 1,000 ML Q13H 11/17 0715 AC 11/21 Chloride IV 0423 Divalproex Sodium 125 MG BID 11/18 2200 AC 11/20 PO 2135 Docusate Sodium 100 MG DAILY 11/12 1837 AC 11/19 PO 1453 Furosemide 20 MG BID 11/12 2200 AC 11/20 PO 2136 Guaifenesin 600 MG Q12 11/06 2330 AC 11/17 PO 2156 Heparin Sodium 5,000 UNIT Q8 11/07 06 AC 11/21 (Porcine) SC 0529 Ipratropium [place] 2.5 ML BID 11/13 2200 AC 11/21 INH 0913 Olanzapine 2.5 MG Q12 11/12 2200 AC 11/20 PO 2135 Olanzapine 2.5 MG Q8P PRN 11/12 1845 AC 11/18 PO 1845 Polyethylene Glycol 17 GM DAILY PRN 11/12 1845 AC PO Ramelteon 8 MG QPM PRN 11/18 1400 AC PO Senna 187 MG BID 11/14 2200 AC 11/20 PO 2135 Tamsulosin HCl 0.4 MG 1700 11/07 1700 AC 11/20 PO 1643 Vital Signs & I&O Last 24 Hrs of Vitals and I&O: Vital Signs Date Time Temp Pulse Resp B/P B/P Pulse O2 O2 Flow FiO2 Mean Ox Delivery Rate 11/21 0814 96 Nasal 2.0L Cannula 06/12 0624 97.9 62 20 98/62 98 11/21 0000 Nasal 0.5L Cannula 11/20 2200 98.3 60 18 108/60 95 Nasal 0.5L Cannula 11/20 2135 62 108/60 11/20 2058 93 Nasal 2.0L Cannula 11/20 1643 60 102/60 11/20 1600 96 Nasal 0.5L Cannula 11/20 1511 97.9 60 18 102/60 96 Nasal 4.0L Cannula 11/20 1212 56 106/58 Intake & Output 11/21 1600 11/21 0800 11/21 0000 Intake Total 1280 1160 Output Total 650 1400 Balance 630 -240 Intake, IV 800 800 Intake, Oral 480 360 Output, Urine 650 1400 Impression/Plan Impression/Plan Impression/Plan: Physical Exam General Appearance Alert, only oriented to self Skin No Rashes, No Breakdown, No Significant Lesion Skin Temp/Moisture Exam: Warm/Dry Sepsis Skin Exam (color): Normal for Ethnicity HEENT Atraumatic, PERRLA, EOMI, dry mucous membrane Cardiovascular Regular Rate, Normal S1, Normal S2 Lungs diffuse exp wheezing Abdomen Normal Bowel Sounds, Soft, No Tenderness Neurological Normal Speech Extremities 1+ pitting edema bilaterally right leg bigger than left, chronic Vascular Normal Pulses, Pulses Symmetrical IMPRESSION This is a gentleman with chronic kidney disease, previous ischemic heart disease with previous CA, hyperlipidemia, peripheral vascular disease, previous AAA repair, who is on antiplatelet therapy for peripheral vascular disease, hypertension hyperlipidemia now here with a hip fracture s/p surg on 05/27, Recurrent delirium for very prolonged period due to multiple factors, previous urinary retention with UTI with previous urology evaluation, now comes in with * Ongoing recurrent aspiration as he has waxing and waning of worsening mental status, and pts prior wises were not to have a PEG tube and family not too keen on it with Aspiration pna * Previous chronic lung disease, with rt precarinal LN enlargement with 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, with small lung noudles * On off sig delirium / now worse * History of constipation * Pafib not a good candidate for penitentiary anticoag, 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 * 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) * Previous urinary retention on Flomax with previous post void residue being high, was followed by urology, with recurrent uti, now UA appears unremarkable, now has a holden as st cath was difficult * CKD stage 3 * Previous QTC prolongation (with occasional use of atypical antipsycotics, this was used as a last resort family agreed to rx with these meds aswell as they wish more of symptomatic care) * Recent hip fracture last year * Cognitive impairment with worsening mental status in the past few months, 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 Patient on antiplatelet therapy * IHD with cardiomyopathy low ef * Hypertension and hyperlipidemia stable, Ischemic heart disease hypertension stable, Previous aaa * Sig djd cspine WOrsening overall status family aware and they do not want escalation of care but will need to discuss further plan ie comfort vs snf with hospice REC COnt present care Dc coreg NEbs atc with duoneb q8 hrs Budesonide neb rx daily bid 0.5 mg Olanzapine 2.5 mg atc q12 and if unable to take po give him im and when stable can reduce the dose to 2.5 qd Use olanzapine 2.5 inbetween if needed for sig agitation Avoid benzo COnt depakote can resume remelteon if he does not sleep at night Agg bowel regimen with senna make it bid and add docusate, dulcolax and prn miralax Chlorhexide mouth wash tid daily Keep hob up COnt flomax and holden Family meeting to be held again tommorow if family can make it No sig escalation of care if he gets worse, no ICU or BIPAP no unnecessary investigations
[2016-11-21 14:54] VITALS: BP 110/62
[2016-11-21 22:45] VITALS: BP 140/80
--- NOTE | 2016-11-22 07:16 | PN- Housestaff ---
Subjective Follow-up For: Aspiration pneumonia Delirium Subjective: Patient was seen and examined this morning, he is alert, awake, confused. Reported cough and unability to bring sputum up. He slept overnight on and off, no agitation was reported. Vital signs are stable. Review of Systems Constitutional: Reports: see HPI. Objective Last 24 Hrs of Vital Signs/I&O Vital Signs Date Time Temp Pulse Resp B/P B/P Pulse O2 O2 Flow FiO2 Mean Ox Delivery Rate 11/22 0740 93 Nasal 2.0L Cannula 11/22 0728 97.6 63 20 138/74 98 Room Air 11/22 0000 96 Nasal 2.0L Cannula 11/21 2245 98.4 66 18 140/80 98 Nasal 2.0L Cannula 11/21 1915 93 Nasal 2.0L Cannula 11/21 1751 65 110/62 11/21 1454 98.6 65 20 110/62 96 Nasal 4.0L Cannula Intake & Output 11/22 1600 11/22 0800 11/22 0000 Intake Total 860 520 Output Total 600 1000 Balance 260 -480 Intake, IV 800 400 Intake, Oral 60 120 Number 1 Bowel Movements Output, Urine 600 1000 Physical Exam General Appearance: Alert, No Acute Distress Skin: No Rashes HEENT: Atraumatic, PERRLA, EOMI, Mucous Membr. moist/pink Neck: Supple, No JVD Cardiovascular: Regular Rate, Normal S1, Normal S2, No Murmurs Lungs: bilateral decreased air entry, scattered wheeze Abdomen: Normal Bowel Sounds, Soft, No Tenderness, No Hepatospenomegaly, No Masses Neurological: Normal Gait, Normal Speech, Strength at 5/5 X4 Ext, Normal Tone, Sensation Intact, Cranial Nerves 3-12 NL, Reflexes 2+ Extremities: No Clubbing, No Cyanosis, No Edema, Normal Pulses, No Tenderness/ Swelling Vascular: Normal Pulses, Pulses Symmetrical Assessment/Plan Assessment: 86 YO M with PMH significant for COPD not in home oxygen, CHF, atrial fibrillation, HTN, CAD, ischemic cardiomyopathy, [place], AAA (s/p stent placement), PVD, TIA, lung nodule, BPH, CKD, urinary retention secondary to stricture, was brought in from assisted living for shortness of breath and increased confusion. Plan - * Patient is confused, has sitter * Discontinue Cardizem as patient has hypotension, monitor blood pressure * Decrease IV fluid D5 half-normal to 75 mL/h, monitor oral intake and discontinue fluid when it improves * Continue olanzapine 2.5 mg BID for agitation and confusion QTC on 11/16 is 490 * Ramelteon when necessary for insomnia and anxiety * Avoid benzodiazepines, hold remelton * Continue nebs Duoneb 8hrly and budesonide BID * Patient finished antibiotic course of Augmentin 875 twice a day for aspiration pneumonia * Chest x-ray was obtained 11/16/16 that revealed left lower lobe opacity that could be atelectasis and/or consolidation, new finding * Chest x-ray obtained today 11/18/16 revealed Persistent but improved opacity left base. This may represent a combination of atelectasis, pneumonia and/or pleural fluid * Urine for strep pneumo and Legionella antigen are negative * Blood and urine culture are negative * Family meeting for goals of care was held on 11/17/16 no escalation of care DVT PPX - ALPS/Heparin Code -DNR/DNI Problem List: 1. Aspiration pneumonia 2. Delirium Pain Ratin Pain Location: none Pain Goal: Pain 4 or less Pain Plan: Mild pain pathway Tomorrow's Labs & Rationales: None
[2016-11-22 07:28] VITALS: BP 138/74
--- NOTE | 2016-11-22 13:18 | NUR ---
WOUND CARE: REQUESTED BY NURSING STAFF TO EVALUATE PT FOR SKIN ALTERATION TO CASI BUTTOCKS - PT RESTLESS AND AGITATIVE AND COMBATIVE WITH STAFF AT TIME OF ASSESSMENT REQUIRING ASSITANCE X 3 FOR EVAL - PER STAFF, PT IS "LESS COMBATIVE THAN USUAL" PT NOTED WTIH (2) AREAS OF SDTI TO CASI BUTTOCKS 2X1 CM LIGHT PURPLE DISCOLORATION WITH ABRASED SURFACE ? R/T FRICTION/SHEER FORCE INJURY WELL - NON OPEN NON DRNG - NO EVIDENCE OF INFECTION - PT CURRENTLY REMAINS ON SIZE BURDICK MATTRESS RECOMMENDATION: APPLY VITAMIN A+D OINTMENT QS AND PRN - REMAIN ON SPECIALTY MATTRESS PLEASE - ELEVATE HOB 30 DEGREES TO REDUCE FRICTION SHEER FORCES - DIETARY TO EVALUATE - SIDE LYING POSITION WIB
--- NOTE | 2016-11-22 14:24 | PN- Pulmonary ---
Subjective HPI/Critical Care Issues: Patient was seen and examined this morning, he is alert, awake, confused. Reported cough and unability to bring sputum up. He slept overnight on and off, no agitation was reported. Vital signs are stable. Review of Systems Constitutional: Reports: see HPI. Objective Current Medications: Current Medications Sig/Chirag Start time Last Medication Dose Route Stop Time Status Admin Acetaminophen 650 MG Q6P PRN 11/06 2300 AC PO Albuterol Sulfate 3 ML BID 11/13 2200 AC 11/22 INH 0735 Bisacodyl 5 MG DAILY 11/07 1837 AC 11/22 PO 0945 Budesonide 0.5 MG BID 11/07 2200 AC 11/22 INH 0736 Budesonide/ 2 PUF BID 11/15 220 AC 11/22 Formoterol Fumarate INH 0945 Carvedilol 6.25 MG BID 11/07 1000 DC 11/19 PO 1454 Chlorhexidine 15 ML TID 11/12 220 AC 11/22 Gluconate PO 0945 Clopidogrel Bisulfate 75 MG DAILY 11/07 1000 AC 11/22 PO 0944 Dextrose/Sodium 1,000 ML Q13H 11/17 0715 AC 11/22 Chloride IV 0325 Divalproex Sodium 125 MG BID 11/18 2200 AC 11/22 PO 0945 Docusate Sodium 100 MG DAILY 11/12 1837 AC 11/22 PO 0944 Furosemide 20 MG BID 11/12 2200 AC 11/22 PO 0944 Guaifenesin 600 MG Q12 11/22 1235 AC PO Guaifenesin 600 MG Q12 11/06 2330 DC 11/22 PO 0944 Heparin Sodium 5,000 UNIT Q8 11/07 0600 AC 11/22 (Porcine) SC 1410 Ipratropium [place] 2.5 ML BID 11/13 220 AC 11/22 INH 0736 Olanzapine 2.5 MG Q12 11/12 2200 AC 11/22 PO 0944 Olanzapine 2.5 MG Q8P PRN 11/12 1845 AC 11/18 PO 1845 Polyethylene Glycol 17 GM DAILY PRN 11/12 1845 AC PO Ramelteon 8 MG QPM PRN 11/18 1400 AC 11/21 PO 2339 Senna 187 MG BID 11/14 2200 AC 11/22 PO 0944 Tamsulosin HCl 0.4 MG 1700 05/29 1700 AC 11/21 PO 1751 Vital Signs & I&O Last 24 Hrs of Vitals and I&O: Vital Signs Date Time Temp Pulse Resp B/P B/P Pulse O2 O2 Flow FiO2 Mean Ox Delivery Rate 11/22 0740 93 Nasal 2.0L Cannula 11/22 0728 97.6 63 20 138/74 98 Room Air 11/22 0000 96 Nasal 2.0L Cannula 11/21 2245 98.4 66 18 140/80 98 Nasal 2.0L Cannula 11/21 1915 93 Nasal 2.0L Cannula 11/21 1751 65 110/62 11/21 1454 98.6 65 20 110/62 96 Nasal 4.0L Cannula Intake & Output 11/22 1600 11/22 0800 11/22 0000 Intake Total 860 520 Output Total 600 1000 Balance 260 -480 Intake, IV 800 400 Intake, Oral 60 120 Number 1 Bowel Movements Output, Urine 600 1000 Impression/Plan Impression/Plan Impression/Plan: Physical Exam General Appearance Alert, only oriented to self Skin No Rashes, No Breakdown, No Significant Lesion Skin Temp/Moisture Exam: Warm/Dry Sepsis Skin Exam (color): Normal for Ethnicity HEENT Atraumatic, PERRLA, EOMI, dry mucous membrane Cardiovascular Regular Rate, Normal S1, Normal S2 Lungs diffuse exp wheezing Abdomen Normal Bowel Sounds, Soft, No Tenderness Neurological Normal Speech Extremities 1+ pitting edema bilaterally right leg bigger than left, chronic Vascular Normal Pulses, Pulses Symmetrical IMPRESSION This is a gentleman with chronic kidney disease, previous ischemic heart disease with previous [place], hyperlipidemia, peripheral vascular disease, previous AAA repair, who is on antiplatelet therapy for peripheral vascular disease, hypertension hyperlipidemia now here with a hip fracture s/p surg on 05/27, Recurrent delirium for very prolonged period due to multiple factors, previous urinary retention with UTI with previous urology evaluation, now comes in with * Ongoing recurrent aspiration as he has waxing and waning of worsening mental status, and pts prior wises were not to have a PEG tube and family not too keen on it with Aspiration pna * Previous chronic lung disease, with rt precarinal LN enlargement with 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, with small lung noudles * On off sig delirium / now worse * History of constipation * Pafib not a good candidate for [employer] anticoag, 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 * 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) * Previous urinary retention on Flomax with previous post void residue being high, was followed by urology, with recurrent uti, now UA appears unremarkable, now has a holden as st cath was difficult * CKD stage 3 * Previous QTC prolongation (with occasional use of atypical antipsycotics, this was used as a last resort family agreed to rx with these meds aswell as they wish more of symptomatic care) * Recent hip fracture last year * Cognitive impairment with worsening mental status in the past few months, 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 Patient on antiplatelet therapy * IHD with cardiomyopathy low ef * Hypertension and hyperlipidemia stable, Ischemic heart disease hypertension stable, Previous aaa * Sig djd cspine WOrsening overall status family aware and they do not want escalation of care but will need to discuss further plan ie comfort vs snf with hospice REC COnt present care NEbs atc with duoneb q8 hrs Budesonide neb rx daily bid 0.5 mg Olanzapine 2.5 mg atc q12 and if unable to take po give him im and when stable can reduce the dose to 2.5 qd Use olanzapine 2.5 inbetween if needed for sig agitation Avoid benzo COnt depakote Remelteon if he does not sleep at night Agg bowel regimen with senna make it bid and add docusate, dulcolax and prn miralax Pt did have bm today Chlorhexide mouth wash tid daily Keep hob up COnt flomax and holden OOB to chair Dc holden and observe PT to see if he is awake Family meeting to be held before No sig escalation of care if he gets worse, no ICU or BIPAP no unnecessary investigations
[2016-11-22 14:57] VITALS: BP 120/60
[2016-11-22 22:26] VITALS: BP 122/68
--- NOTE | 2016-11-23 02:41 | NUR ---
PATIENT WOKE UP FROM HIS SLEEP COMBATIVE. PATIENT RIPPED THE IV TUBING RESULTING IN A SMALL TEAR TO RIGHT HAND. BAND AID APPLIED TO SKIN TEAR. ZYPREXA 2.5 MG ADMINISTERED FOR AGITATION. PATIENT IS RESTING COMFORTABLY AND CALMLY IN BED AT THIS TIME. PATIENT SAFETY MONITOR CONTINUES TO BE IN PLACE. WILL CONTINUE TO MONITOR.
[2016-11-23 06:00] VITALS: BP 110/60
--- NOTE | 2016-11-23 11:55 | PN- Housestaff ---
Subjective Follow-up For: Aspiration pneumonia Delirium Subjective: Patient was seen and examined this morning, awake, no acute distress. Overnight events of agitation, ripped his IV line out. Patient continued to be confused and hallucinating. Vital signs are stable. Review of Systems Constitutional: Reports: see HPI. Objective Last 24 Hrs of Vital Signs/I&O Vital Signs Date Time Temp Pulse Resp B/P B/P Pulse O2 O2 Flow FiO2 Mean Ox Delivery Rate 11/23 0851 94 Nasal 2.0L Cannula 11/23 0800 93 Nasal 2.0L Cannula 11/23 0600 98.2 72 22 110/60 94 Room Air 11/23 0000 Room Air 2.0L 11/22 2226 98.6 68 20 122/68 90 Nasal 2.0L Cannula 11/22 1830 98 Nasal 4.0L Cannula 11/22 1606 72 120/60 11/22 1457 97.9 72 20 120/60 100 Nasal 4.0L Cannula Intake & Output 11/23 1600 11/23 0800 11/23 0000 Intake Total 600 325 Output Total 650 Balance 600 -325 Intake, IV 600 225 Intake, Oral 100 Number 1 Bowel Movements Output, Urine 650 Physical Exam General Appearance: Alert, No Acute Distress Skin: No Rashes, No Breakdown, No Significant Lesion Skin Temp/Moisture Exam: Warm/Dry HEENT: Atraumatic, PERRLA, EOMI, Mucous Membr. moist/pink Neck: Supple, No JVD Cardiovascular: Regular Rate, Normal S1, Normal S2, No Murmurs Lungs: Clear to Auscultation, Normal Air Movement Abdomen: Normal Bowel Sounds, Soft, No Tenderness, No Hepatospenomegaly, No Masses Neurological: Normal Speech, Strength at 5/5 X4 Ext, Normal Tone, Sensation Intact, Cranial Nerves 3-12 NL, Reflexes 2+ Extremities: No Clubbing, No Cyanosis, No Edema, Normal Pulses, No Tenderness/ Swelling Assessment/Plan Assessment: 86 YO M with PMH significant for COPD not in home oxygen, CHF, atrial fibrillation, HTN, CAD, ischemic cardiomyopathy, [place], AAA (s/p stent placement), PVD, TIA, lung nodule, BPH, CKD, urinary retention secondary to stricture, was brought in from assisted living for shortness of breath and increased confusion. Plan - * Patient is confused, has sitter * Discontinue Cardizem as patient has hypotension, monitor blood pressure * Decrease IV fluid D5 half-normal to 75 mL/h, monitor oral intake and discontinue fluid when it improves * Continue olanzapine 2.5 mg BID for agitation and confusion QTC on 11/16 is 490 * Ramelteon when necessary for insomnia and anxiety * Avoid benzodiazepines, hold remelton * Continue nebs Duoneb 8hrly and budesonide BID * Patient finished antibiotic course of Augmentin 875 twice a day for aspiration pneumonia * Chest x-ray was obtained 11/16/16 that revealed left lower lobe opacity that could be atelectasis and/or consolidation, new finding * Chest x-ray obtained today 11/18/16 revealed Persistent but improved opacity left base. This may represent a combination of atelectasis, pneumonia and/or pleural fluid * Urine for strep pneumo and Legionella antigen are negative * Blood and urine culture are negative * Family meeting for goals of care was held on 11/17/16 no escalation of care DVT PPX - ALPS/Heparin Code -DNR/DNI Problem List: 1. Aspiration pneumonia 2. Delirium Pain Ratin Pain Location: none Pain Goal: Pain 4 or less Pain Plan: Mild pain pathway Tomorrow's Labs & Rationales: NONE
--- NOTE | 2016-11-23 12:55 | PN- Pulmonary ---
Subjective HPI/Critical Care Issues: DOING about the same waxing and waning of his consiousness Objective Current Medications: Current Medications Sig/Chirag Start time Last Medication Dose Route Stop Time Status Admin Acetaminophen 650 MG Q6P PRN 11/06 2300 AC PO Albuterol Sulfate 3 ML BID 11/13 2200 AC 11/23 INH 0825 Bisacodyl 5 MG DAILY 11/07 1837 AC 11/23 PO 0957 Budesonide 0.5 MG BID 11/07 2200 AC 11/23 INH 0825 Budesonide/ 2 PUF BID 11/15 2200 AC 11/23 Formoterol Fumarate INH 1002 Chlorhexidine 15 ML TID 11/12 220 AC 11/23 Gluconate PO 0957 Clopidogrel Bisulfate 75 MG DAILY 11/07 1000 AC 11/23 PO 0957 Dextrose/Sodium 1,000 ML Q13H 11/17 0715 AC 11/22 Chloride IV 1606 Divalproex Sodium 125 MG BID 11/18 220 AC 11/23 PO 0957 Docusate Sodium 100 MG DAILY 11/12 1837 AC 11/23 PO 0957 Furosemide 20 MG BID 11/12 220 AC 11/23 PO 0957 Guaifenesin 600 MG Q12 11/22 1235 AC 11/23 PO 0957 Guaifenesin 600 MG Q12 11/06 2330 DC 11/22 PO 0944 Heparin Sodium 5,000 UNIT Q8 11/07 0600 AC 11/23 (Porcine) SC 0543 Ipratropium [place] 2.5 ML BID 11/13 2200 AC 11/23 INH 0828 Olanzapine 5 MG .STK-MED ONE 11/23 0226 DC PO 11/23 0227 Olanzapine 2.5 MG Q12 11/12 220 AC 11/23 PO 0957 Olanzapine 2.5 MG Q8P PRN 11/12 1845 AC 11/23 PO 0233 Polyethylene Glycol 17 GM DAILY PRN 11/12 1845 AC PO Ramelteon 8 MG QPM PRN 11/18 1400 AC 11/21 PO 2339 Senna 187 MG BID 11/14 2200 AC 11/23 PO 0957 Tamsulosin HCl 0.4 MG 1700 11/07 1700 AC 11/22 PO 1606 Vital Signs & I&O Last 24 Hrs of Vitals and I&O: Vital Signs Date Time Temp Pulse Resp B/P B/P Pulse O2 O2 Flow FiO2 Mean Ox Delivery Rate 11/23 0851 94 Nasal 2.0L Cannula 11/23 0800 93 Nasal 2.0L Cannula 11/23 0600 98.2 72 22 110/60 94 Room Air 11/23 0000 Room Air 2.0L 11/22 2226 98.6 68 20 122/68 90 Nasal 2.0L Cannula 11/22 1830 98 Nasal 4.0L Cannula 11/22 1606 72 120/60 11/22 1457 97.9 72 20 120/60 100 Nasal 4.0L Cannula Intake & Output 11/23 1600 11/23 0800 11/23 0000 Intake Total 600 325 Output Total 650 Balance 600 -325 Intake, IV 600 225 Intake, Oral 100 Number 1 Bowel Movements Output, Urine 650 Impression/Plan Impression/Plan Impression/Plan: Physical Exam General Appearance Alert, only oriented to self Skin No Rashes, No Breakdown, No Significant Lesion Skin Temp/Moisture Exam: Warm/Dry Sepsis Skin Exam (color): Normal for Ethnicity HEENT Atraumatic, PERRLA, EOMI, dry mucous membrane Cardiovascular Regular Rate, Normal S1, Normal S2 Lungs diffuse exp wheezing Abdomen Normal Bowel Sounds, Soft, No Tenderness Neurological Normal Speech Extremities 1+ pitting edema bilaterally right leg bigger than left, chronic Vascular Normal Pulses, Pulses Symmetrical IMPRESSION This is a gentleman with chronic kidney disease, previous ischemic heart disease with previous [place], hyperlipidemia, peripheral vascular disease, previous AAA repair, who is on antiplatelet therapy for peripheral vascular disease, hypertension hyperlipidemia now here with a hip fracture s/p surg on 05/27, Recurrent delirium for very prolonged period due to multiple factors, previous urinary retention with UTI with previous urology evaluation, now comes in with * Ongoing recurrent aspiration as he has waxing and waning of worsening mental status, and pts prior wises were not to have a PEG tube and family not too keen on it with Aspiration pna * Previous chronic lung disease, with rt precarinal LN enlargement with 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, with small lung noudles * On off sig delirium / now worse * History of constipation * Pafib not a good candidate for shelter anticoag, 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 * 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) * Previous urinary retention on Flomax with previous post void residue being high, was followed by urology, with recurrent uti, now UA appears unremarkable, now has a holden as st cath was difficult * CKD stage 3 * Previous QTC prolongation (with occasional use of atypical antipsycotics, this was used as a last resort family agreed to rx with these meds aswell as they wish more of symptomatic care) * Recent hip fracture last year * Cognitive impairment with worsening mental status in the past few months, 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 Patient on antiplatelet therapy * IHD with cardiomyopathy low ef * Hypertension and hyperlipidemia stable, Ischemic heart disease hypertension stable, Previous aaa * Sig djd cspine WOrsening overall status family aware and they do not want escalation of care but will need to discuss further plan ie comfort vs snf with hospice REC COnt present care NEbs atc with duoneb q8 hrs Budesonide neb rx daily bid 0.5 mg Olanzapine 2.5 mg atc q12 and if unable to take po give him im and when stable can reduce the dose to 2.5 qd Use olanzapine 2.5 inbetween if needed for sig agitation Avoid benzo COnt depakote Remelteon if he does not sleep at night Agg bowel regimen with senna make it bid and add docusate, dulcolax and prn miralax Pt did have bm today Chlorhexide mouth wash tid daily Keep hob up COnt flomax and holden OOB to chair Dc adina and observe Family meeting held before No sig escalation of care if he gets worse, no ICU or BIPAP no unnecessary investigations
[2016-11-23 14:00] VITALS: BP 118/64
[2016-11-23 22:40] VITALS: BP 122/66
--- NOTE | 2016-11-24 07:45 | PN- Housestaff ---
Subjective Follow-up For: Aspiration pneumonia Delirium Subjective: Patient was seen and examined this morning, continued to be confused, poor oral intake. Vital signs are stable. Review of Systems Constitutional: Reports: see HPI. Objective Last 24 Hrs of Vital Signs/I&O Vital Signs Date Time Temp Pulse Resp B/P B/P Pulse O2 O2 Flow FiO2 Mean Ox Delivery Rate 11/24 1431 98.3 70 20 120/60 92 Room Air 11/24 0856 91 Room Air Room Air 11/24 0000 Room Air 11/23 2240 98.0 69 20 122/66 97 Nasal 2.0L Cannula 11/23 1925 94 Nasal 1.0L Cannula 11/23 1642 71 118/64 11/23 1600 94 Nasal 2.0L Cannula Intake & Output 11/24 1600 11/24 0800 11/24 0000 Intake Total 550 100 340 Output Total Balance 550 100 340 Intake, IV 150 Intake, Oral 400 100 340 Physical Exam General Appearance: Alert, Cooperative Skin: No Rashes, No Breakdown, No Significant Lesion Cardiovascular: Regular Rate, Normal S1, Normal S2, No Murmurs Lungs: Clear to Auscultation, Normal Air Movement Abdomen: Normal Bowel Sounds, Soft, No Tenderness, No Hepatospenomegaly, No Masses Neurological: Normal Speech, Strength at 5/5 X4 Ext, Normal Tone, Sensation Intact, Cranial Nerves 3-12 NL, Reflexes 2+ Extremities: No Clubbing, No Cyanosis, No Edema, Normal Pulses, No Tenderness/ Swelling Assessment/Plan Assessment: 86 YO M with PMH significant for COPD not in home oxygen, CHF, atrial fibrillation, HTN, CAD, ischemic cardiomyopathy, [place], AAA (s/p stent placement), PVD, TIA, lung nodule, BPH, CKD, urinary retention secondary to stricture, was brought in from assisted living for shortness of breath and increased confusion. Plan - * Patient is confused, has sitter * Discontinue Cardizem as patient has hypotension, monitor blood pressure * Decrease IV fluid D5 half-normal to 75 mL/h, monitor oral intake and discontinue fluid when it improves * Continue olanzapine 2.5 mg BID for agitation, patient had previous prolonged QTC but family decided to take the risk and continue with olanzapine * Ramelteon when necessary for insomnia and anxiety * Avoid benzodiazepines, hold remelton * Continue nebs Duoneb 8hrly and budesonide BID * Patient finished antibiotic course of Augmentin 875 twice a day for aspiration pneumonia * Chest x-ray was obtained 11/16/16 that revealed left lower lobe opacity that could be atelectasis and/or consolidation, new finding * Chest x-ray obtained today 11/18/16 revealed Persistent but improved opacity left base. This may represent a combination of atelectasis, pneumonia and/or pleural fluid * Urine for strep pneumo and Legionella antigen are negative * Blood and urine culture are negative * Family meeting for goals of care was held on 11/17/16 no escalation of care DVT PPX - ALPS/Heparin Code -DNR/DNI Problem List: 1. Aspiration pneumonia 2. Delirium Pain Ratin Pain Location: none Pain Goal: Pain 4 or less Pain Plan: Mild pain pathway Tomorrow's Labs & Rationales: NONE
--- NOTE | 2016-11-24 13:25 | PN- Pulmonary ---
Subjective HPI/Critical Care Issues: Doing poorly still not eating on IVF Objective Current Medications: Current Medications Sig/Chirag Start time Last Medication Dose Route Stop Time Status Admin Acetaminophen 650 MG Q6P PRN 11/06 2300 AC PO Albuterol Sulfate 3 ML BID 11/13 2200 AC 11/24 INH 0851 Bisacodyl 5 MG DAILY 11/07 1837 AC 11/24 PO 1030 Budesonide 0.5 MG BID 11/07 2200 AC 11/24 INH 0851 Budesonide/ 2 PUF BID 11/15 2200 AC 11/24 Formoterol Fumarate INH 1030 Chlorhexidine 15 ML TID 11/12 2200 AC 11/24 Gluconate PO 1030 Clopidogrel Bisulfate 75 MG DAILY 11/07 1000 AC 11/24 PO 1029 Dextrose/Sodium 1,000 ML Q13H 11/24 1115 AC 11/24 Chloride IV 1222 Dextrose/Sodium 1,000 ML Q13H 11/17 0715 DC 11/22 Chloride IV 1606 Divalproex Sodium 125 MG BID 11/18 220 AC 11/24 PO 1030 Docusate Sodium 100 MG DAILY 11/12 1837 AC 11/24 PO 1030 Furosemide 20 MG BID 11/12 2200 AC 11/24 PO 1030 Guaifenesin 600 MG Q12 11/22 1235 AC 11/24 PO 1029 Heparin Sodium 5,000 UNIT Q8 11/07 0600 AC 11/24 (Porcine) SC 1233 Ipratropium [place] 2.5 ML BID 11/13 2200 AC 11/24 INH 0851 Magnesium Sulfate 1 GM ONCE ONE 11/24 1115 AC 11/24 Dextrose/Water 100 ML IV 11/24 1514 1232 Olanzapine 2.5 MG Q12 11/24 2200 UNVr PO Olanzapine 2.5 MG Q8P PRN 11/24 1330 UNVr PO Olanzapine 2.5 MG Q12 11/12 2200 DC 11/23 PO 0957 Olanzapine 2.5 MG Q8P PRN 11/12 1845 DC 11/23 PO 0233 Polyethylene Glycol 17 GM DAILY PRN 11/12 1845 AC PO Ramelteon 8 MG QPM PRN 11/18 1400 AC 11/21 PO 2339 Senna 187 MG BID 11/14 2200 AC 11/24 PO 1029 Tamsulosin HCl 0.4 MG 1700 05/29 1700 AC 11/23 PO 1642 Vital Signs & I&O Last 24 Hrs of Vitals and I&O: Vital Signs Date Time Temp Pulse Resp B/P B/P Pulse O2 O2 Flow FiO2 Mean Ox Delivery Rate 11/24 0856 91 Room Air Room Air 11/24 0000 Room Air 11/23 2240 98.0 69 20 122/66 97 Nasal 2.0L Cannula 11/23 1925 94 Nasal 1.0L Cannula 11/23 1642 71 118/64 11/23 1600 94 Nasal 2.0L Cannula 11/23 1400 98.3 71 18 118/64 96 Nasal 1.0L Cannula Intake & Output 11/24 1600 11/24 0800 11/24 0000 Intake Total 100 340 Output Total Balance 100 340 Intake, Oral 100 340 Impression/Plan Impression/Plan Impression/Plan: Physical Exam General Appearance Alert, only oriented to self Skin No Rashes, No Breakdown, No Significant Lesion Skin Temp/Moisture Exam: Warm/Dry Sepsis Skin Exam (color): Normal for Ethnicity HEENT Atraumatic, PERRLA, EOMI, dry mucous membrane Cardiovascular Regular Rate, Normal S1, Normal S2 Lungs diffuse exp wheezing Abdomen Normal Bowel Sounds, Soft, No Tenderness Neurological Normal Speech Extremities 1+ pitting edema bilaterally right leg bigger than left, chronic Vascular Normal Pulses, Pulses Symmetrical IMPRESSION This is a gentleman with chronic kidney disease, previous ischemic heart disease with previous [place], hyperlipidemia, peripheral vascular disease, previous AAA repair, who is on antiplatelet therapy for peripheral vascular disease, hypertension hyperlipidemia now here with a hip fracture s/p surg on 05/27, Recurrent delirium for very prolonged period due to multiple factors, previous urinary retention with UTI with previous urology evaluation, now comes in with * Ongoing recurrent aspiration as he has waxing and waning of worsening mental status, and pts prior wises were not to have a PEG tube and family not too keen on it with Aspiration pna * Previous chronic lung disease, with rt precarinal LN enlargement with 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, with small lung noudles * On off sig delirium / now worse * History of constipation * Pafib not a good candidate for nursing home anticoag, 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 * 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) * Previous urinary retention on Flomax with previous post void residue being high, was followed by urology, with recurrent uti, now UA appears unremarkable, now has a holden as st cath was difficult * CKD stage 3 * Previous QTC prolongation (with occasional use of atypical antipsycotics, this was used as a last resort family agreed to rx with these meds aswell as they wish more of symptomatic care) * Recent hip fracture last year * Cognitive impairment with worsening mental status in the past few months, 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 Patient on antiplatelet therapy * IHD with cardiomyopathy low ef * Hypertension and hyperlipidemia stable, Ischemic heart disease hypertension stable, Previous aaa * Sig djd cspine WOrsening overall status family aware and they do not want escalation of care but will need to discuss further plan ie comfort vs snf with hospice REC COnt present care Will have another family meeting in am NEbs atc with duoneb q8 hrs Budesonide neb rx daily bid 0.5 mg Olanzapine 2.5 mg atc q12 and if unable to take po give him im and when stable can reduce the dose to 2.5 qd Use olanzapine 2.5 inbetween if needed for sig agitation Avoid benzo COnt depakote Remelteon if he does not sleep at night Agg bowel regimen with senna make it bid and add docusate, dulcolax and prn miralax Pt did have bm today Chlorhexide mouth wash tid daily Keep hob up COnt flomax and holden OOB to chair Dc adina and observe Family meeting held before No sig escalation of care if he gets worse, no ICU or BIPAP no unnecessary investigations
[2016-11-24 14:31] VITALS: BP 120/60
[2016-11-24 23:48] VITALS: BP 122/60
[2016-11-24 23:49] VITALS: BP 122/60
[2016-11-25 06:26] VITALS: BP 128/64
--- NOTE | 2016-11-25 09:01 | PN- Housestaff ---
Subjective Follow-up For: Aspiration pneumonia. Subjective: The patient was comfortable this morning. He was alert, but not oriented to time person. Vitals were stable overnight. He remained afebrile. Review of Systems Constitutional: Reports: see HPI. Objective Last 24 Hrs of Vital Signs/I&O Vital Signs Date Time Temp Pulse Resp B/P B/P Pulse O2 O2 Flow FiO2 Mean Ox Delivery Rate 11/25 1424 97.5 63 20 118/70 95 Room Air 11/25 1253 94 Room Air 11/25 0800 Room Air 11/25 0626 97.8 64 20 128/64 96 Room Air 11/25 0000 97 Room Air Room Air 11/24 2349 98.0 82 20 122/60 97 Room Air 11/24 2348 98.0 81 18 122/60 95 Room Air 11/24 1915 92 Room Air Intake & Output 11/25 1600 11/25 0800 11/25 0000 Intake Total 900 120 720 Output Total Balance 900 120 720 Intake, IV 600 Intake, Oral 900 120 120 Number 2 Bowel Movements Physical Exam General Appearance: No Acute Distress Other Physical Findings: General Exam: AAOx1, No acute distress, Skin: No rashes, no breakdown HEENT: PERRLA, EOMI Neck: Supple, No JVD No cervical lymphadenopathy CVS: Reg Rate, Normal S1,S2, No MGR Resp: Normal air entry, no ronchi/rales Abdomen: Soft, No tenderness, Normal Bowel Sounds Neuro: Normal Speech, Strength 5/5 b/l x 4 extremities, Sensation intact, CN III -XII NL, Reflexes 2+ Extremities: No cyanosis, pedal edema Current Medications: Current Medications Sig/Chirag Start time Last Medication Dose Route Stop Time Status Admin Acetaminophen 650 MG Q6P PRN 11/06 2300 AC PO Albuterol Sulfate 3 ML BID 11/13 220 AC 11/25 INH 1249 Bisacodyl 5 MG DAILY 11/07 1837 AC 11/25 PO 0918 Budesonide 0.5 MG BID 11/07 2199 AC 11/25 INH 1252 Budesonide/ 2 PUF BID 11/15 220 AC 11/25 Formoterol Fumarate INH 0918 Chlorhexidine 15 ML TID 11/12 2199 AC 11/25 Gluconate PO 0918 Clopidogrel Bisulfate 75 MG DAILY 11/07 1000 AC 11/25 PO 0918 Dextrose/Sodium 1,000 ML Q13H 11/24 1115 DC 11/25 Chloride IV 0621 Divalproex Sodium 125 MG BID 11/18 2200 AC 11/25 PO 0917 Docusate Sodium 100 MG DAILY 11/12 1837 AC 11/25 PO 0918 Furosemide 20 MG BID 11/12 2200 AC 11/25 PO 0918 Guaifenesin 600 MG Q12 11/22 1235 AC 11/25 PO 0919 Heparin Sodium 5,000 UNIT Q8 11/07 0600 AC 11/25 (Porcine) SC 1244 Ipratropium [place] 2.5 ML BID 11/13 2200 AC 11/25 INH 1250 Olanzapine 2.5 MG Q12 11/24 2200 AC 11/25 PO 0918 Olanzapine 2.5 MG Q8P PRN 11/24 1330 AC 11/25 PO 0308 Patient Medication 1 ED .STK-MED ONE 11/25 1415 MO Teaching ED 11/25 1416 Polyethylene Glycol 17 GM DAILY PRN 11/12 1845 AC PO Ramelteon 8 MG QPM PRN 11/18 1400 AC 11/21 PO 2339 Senna 187 MG BID 11/14 2200 AC 11/25 PO 0918 Tamsulosin HCl 0.4 MG 1700 11/07 1700 AC 11/24 PO 1740 Assessment/Plan Assessment: 86 YO M with PMH significant for COPD not in home oxygen, CHF, atrial fibrillation, HTN, CAD, ischemic cardiomyopathy, [place], AAA (s/p stent placement), PVD, TIA, lung nodule, BPH, CKD, urinary retention secondary to stricture, was brought in from assisted living for shortness of breath and increased confusion. Plan - * Patient is confused, has sitter * Discontinue Cardizem as patient has hypotension, monitor blood pressure * Continue olanzapine 2.5 mg BID for agitation, patient had previous prolonged QTC but family decided to take the risk and continue with olanzapine * Ramelteon when necessary for insomnia and anxiety * Avoid benzodiazepines, hold remelton * Continue nebs Duoneb 8hrly and budesonide BID * Patient finished antibiotic course of Augmentin 875 twice a day for aspiration pneumonia * Chest x-ray was obtained 11/16/16 that revealed left lower lobe opacity that could be atelectasis and/or consolidation, new finding * Chest x-ray obtained today 6/9/17 revealed Persistent but improved opacity left base. This may represent a combination of atelectasis, pneumonia and/or pleural fluid * Urine for strep pneumo and Legionella antigen are negative * Blood and urine culture are negative * Pt has been converted to comfort care. Spoke to Dr. Dill, who requested the house staff to order the hospice orders. Hospice evaluation underway. DVT PPX - ALPS/Heparin Code -DNR/DNI Problem List: 1. Chronic systolic heart failure 2. Aspiration pneumonia 3. COPD (chronic obstructive pulmonary disease) Pain Ratin Pain Location: unable to asess Pain Goal: Pain 4 or less Pain Plan: tylenol prn Tomorrow's Labs & Rationales: no labs necessary
--- NOTE | 2016-11-25 09:39 | NUR ---
NURSING NOTE: ATTENDING PHYSICIAN DR. LARSON INFORMED THIS RN AFTER PATIENT FAMILY MEETING THAT PATIENT WILL NEED HOSPICE EVALUATION OF TODAY. CASE MANAGEMENT NOTIFIED OF NEW EVALUATION NEED. WILL AWAIT EVAL.
--- NOTE | 2016-11-25 13:40 | PN- Pulmonary ---
Subjective HPI/Critical Care Issues: DOing about the same not awake On and off waxing and waning of consiousness Objective Current Medications: Current Medications Sig/Chirag Start time Last Medication Dose Route Stop Time Status Admin Acetaminophen 650 MG Q6P PRN 11/06 2300 AC PO Albuterol Sulfate 3 ML BID 11/13 2200 AC 11/25 INH 1249 Bisacodyl 5 MG DAILY 11/07 1837 AC 11/25 PO 0918 Budesonide 0.5 MG BID 11/07 220 AC 11/25 INH 1252 Budesonide/ 2 PUF BID 11/15 2200 AC 11/25 Formoterol Fumarate INH 0918 Chlorhexidine 15 ML TID 11/12 220 AC 11/25 Gluconate PO 0918 Clopidogrel Bisulfate 75 MG DAILY 11/07 1000 AC 11/25 PO 0918 Dextrose/Sodium 1,000 ML Q13H 11/24 1115 DC 11/25 Chloride IV 0621 Divalproex Sodium 125 MG BID 11/18 2200 AC 11/25 PO 0917 Docusate Sodium 100 MG DAILY 11/12 183 AC 11/25 PO 0918 Furosemide 20 MG BID 11/12 2200 AC 11/25 PO 0918 Guaifenesin 600 MG Q12 11/22 1235 AC 11/25 PO 0919 Heparin Sodium 5,000 UNIT Q8 11/07 0600 AC 11/25 (Porcine) SC 1244 Ipratropium [place] 2.5 ML BID 11/13 220 AC 11/25 INH 1250 Magnesium Sulfate 1 GM ONCE ONE 11/24 1115 DC 11/24 Dextrose/Water 100 ML IV 11/24 1514 1232 Olanzapine 2.5 MG Q12 11/24 2200 AC 11/25 PO 0918 Olanzapine 2.5 MG Q8P PRN 11/24 1330 AC 11/25 PO 0308 Polyethylene Glycol 17 GM DAILY PRN 11/12 1845 AC PO Ramelteon 8 MG QPM PRN 11/18 1400 AC 11/21 PO 2339 Senna 187 MG BID 11/14 220 AC 11/25 PO 0918 Tamsulosin HCl 0.4 MG 1700 11/07 1700 AC 11/24 PO 1740 Vital Signs & I&O Last 24 Hrs of Vitals and I&O: Vital Signs Date Time Temp Pulse Resp B/P B/P Pulse O2 O2 Flow FiO2 Mean Ox Delivery Rate 11/25 1253 94 Room Air 11/25 0800 Room Air 11/25 0626 97.8 64 20 128/64 96 Room Air 11/25 0000 97 Room Air Room Air 11/24 2349 98.0 82 20 122/60 97 Room Air 11/24 2348 98.0 81 18 122/60 95 Room Air 11/24 1915 92 Room Air 11/24 1431 98.3 70 20 120/60 92 Room Air Intake & Output 11/25 1600 11/25 0800 11/25 0000 Intake Total 120 720 Output Total Balance 120 720 Intake, IV 600 Intake, Oral 120 120 Impression/Plan Impression/Plan Impression/Plan: Physical Exam General Appearance Alert, only oriented to self Skin No Rashes, No Breakdown, No Significant Lesion Skin Temp/Moisture Exam: Warm/Dry Sepsis Skin Exam (color): Normal for Ethnicity HEENT Atraumatic, PERRLA, EOMI, dry mucous membrane Cardiovascular Regular Rate, Normal S1, Normal S2 Lungs diffuse exp wheezing Abdomen Normal Bowel Sounds, Soft, No Tenderness Neurological Normal Speech Extremities 1+ pitting edema bilaterally right leg bigger than left, chronic Vascular Normal Pulses, Pulses Symmetrical IMPRESSION This is a gentleman with chronic kidney disease, previous ischemic heart disease with previous SC, hyperlipidemia, peripheral vascular disease, previous AAA repair, who is on antiplatelet therapy for peripheral vascular disease, hypertension hyperlipidemia now here with a hip fracture s/p surg on 05/27, Recurrent delirium for very prolonged period due to multiple factors, previous urinary retention with UTI with previous urology evaluation, now comes in with * Ongoing recurrent aspiration as he has waxing and waning of worsening mental status, and pts prior wises were not to have a PEG tube and family not too keen on it with Aspiration pna * Previous chronic lung disease, with rt precarinal LN enlargement with 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, with small lung noudles * On off sig delirium / now worse * History of constipation * Pafib not a good candidate for technician terminal and repeater anticoag, 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 * 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) * Previous urinary retention on Flomax with previous post void residue being high, was followed by urology, with recurrent uti, now UA appears unremarkable, now has a holden as st cath was difficult * CKD stage 3 * Previous QTC prolongation (with occasional use of atypical antipsycotics, this was used as a last resort family agreed to rx with these meds aswell as they wish more of symptomatic care) * Recent hip fracture last year * Cognitive impairment with worsening mental status in the past few months, 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 Patient on antiplatelet therapy * IHD with cardiomyopathy low ef * Hypertension and hyperlipidemia stable, Ischemic heart disease hypertension stable, Previous aaa * Sig djd cspine REC COnt present care Had a family meeting and discussed with son and daughter They wish hospice eval as his overall status is poor and now the pt has become bedbound and he is a candidate for hospice. WIll have hospice eval for inpt vs ct hospice in [place] Pt is now dnr and dni and comfort only from going forward dc ivf NEbs atc with duoneb q8 hrs Budesonide neb rx daily bid 0.5 mg Olanzapine 2.5 mg atc q12 and if unable to take po give him im and when stable can reduce the dose to 2.5 qd Use olanzapine 2.5 inbetween if needed for sig agitation dc unnecessary meds Avoid benzo COnt depakote Agg bowel regimen with senna make it bid and add docusate, dulcolax and prn miralax Pt did have bm today Chlorhexide mouth wash tid daily Keep hob up COnt holden and dc flomax for now Family meeting held as noted above and hospice eval today Pts status can be switched to comfort care
[2016-11-25 14:24] VITALS: BP 118/70
[2016-11-25 16:21] VITALS: BP 118/70
--- NOTE | 2016-11-27 20:48 | Discharge Summary ---
Visit Information Visit Dates Admission Date: 11/06/16 Discharge Date: 11/25/16 Hospital Course Course Attending Physician: NAY LARSON MD Primary Care Physician: NAY LARSON MD Hospital Course: Mr. Crsos is 86 year old male with past medical history significant for COPD not on home oxygen, CHF, atrial fibrillation, HTN, CAD, ischemic cardiomyopathy, [place], AAA (s/p stent placement), PVD, TIA, lung nodule, BPH, CKD, urinary retention secondary to stricture, was brought in from assisted living for shortness of breath and increased confusion. Patient was initially treated for aspiration pneumonia, completed course of Augmentin antibiotic. Patient continued to be in waxing and weaning confusion state, all of the labs including chest x-ray and urinalysis were negative for foci of infection. Patient was kept on olanzapine 2.5 mg twice a day for agitation despite having prolonged QTC after discussion with the family. Patient had a prolonged stay without significant improvement, multiple goals of care meeting were held with the family, eventually patient was converted to comfort care and hospice evaluation was obtained. Patient will be transferred to hospice care. Allergies: Coded Allergies: lorazepam (From ATIVAN) (UNKNOWN DO NOT GIVE PER FAMILY 11/28/16) oxycodone (From PERCOCET) (HALLUCINATIONS 05/30/16) Disposition Summary Disposition Principal Diagnosis: Aspiration pneumonia Additional Diagnosis: Confusion Discharge Disposition: hospice - medical facilit Discharge Instructions General Discharge Information Code Status: Full Code Patient's Diet: As tolerated Patient's Activity: As tolerated Follow-Up Instructions/Appts: aaa Medications at Discharge Discharge Medications: Stop taking the following medications: Atorvastatin Calcium (Atorvastatin Calcium) 40 MG TABLET ORAL DAILY Qty = 90 Continue taking these medications: Cyanocobalamin (Vitamin B-12) 1,000 MCG TABLET 1 Tablet ORAL DAILY Comments: last given 07/18/16 @ 1200 Cholecalciferol (Vitamin D3) 1,000 UNIT TABLET 1 Tablet ORAL DAILY Comments: last given 07/18/16 @ 1200 Carvedilol (Coreg) 3.125 MG TABLET 6.25 Milligram ORAL TWICE DAILY Qty = 30 Comments: not given Tamsulosin HCl (Flomax) 0.4 MG CAP.ER.24H 1 Tablet ORAL 5 PM Qty = 30 Comments: last given 07/18/16 @ 1200 Ipratropium/Albuterol Sulfate (Iprat-Albut 0.5-3(2.5) MG/3 Ml) 0.5 MG-3 MG (2.5 MG BASE)/3 ML AMPUL.NEB 3 Milliliters Inhale through mouth EVERY SIX HOURS as needed for RESPIRATORY Comments: PER MAR Chlorhexidine Gluconate (Peridex) 0.12 % MOUTHWASH 15 Milliliters ORAL TWICE DAILY Days = 30 Comments: last given 07/18/16 @ 1200 Clopidogrel Bisulfate (Plavix) 75 MG TABLET 1 Tablet ORAL DAILY Qty = 30 Divalproex Sodium (Depakote Sprinkle) 125 MG CAP.SPRINK 1 Capsule ORAL TWICE DAILY Days = 90 Guaifenesin (Guaifenesin) 400 MG TABLET 1 Tablet ORAL THREE TIMES DAILY as needed for COUGH Bimatoprost (Lumigan) 0.01 % DROPS 1 Drop In the eye TAKE AT BEDTIME Naproxen (Naproxen) 500 MG TABLET 500 Milligram ORAL TWICE DAILY as needed for PAIN Furosemide (Lasix) 20 MG TABLET 1 Tablet ORAL DAILY Days = 90 Copies To: MARSHA VASQUEZ,NAY Egan
== END 2016-11-25 17:00 | disposition hospice, home (50) | DRG 178 ==
LOC: ERH 19:22 → 2NB 21:59 → ERHI 21:59 → ENRESERV 22:25 → 2NB 23:04
PROVIDERS: Emergency Medicine; Internal Medicine Hematology & Oncology; Internal Medicine Infectious Disease; Student in an Organized Health Care Education/Training Program; ADMIT Internal Medicine Pulmonary Disease
DX: J69.0 Pneumonitis due to inhalation of food and vomit (principal); J44.1 Chronic obstructive pulmonary disease with (acute) exacerbation; F05 Delirium due to known physiological condition; I48.2 Chronic atrial fibrillation; I13.0 Hypertensive heart and chronic kidney disease with heart failure and stage 1 through stage 4 chronic kidney disease, or unspecified chronic kidney disease; Z51.5 Encounter for palliative care; I50.22 Chronic systolic (congestive) heart failure; I73.9 Peripheral vascular disease, unspecified; I44.4 Left anterior fascicular block; I25.10 Atherosclerotic heart disease of native coronary artery without angina pectoris; I25.5 Ischemic cardiomyopathy; I25.2 Old myocardial infarction; Z87.891 Personal history of nicotine dependence; I44.0 Atrioventricular block, first degree; R62.7 Adult failure to thrive; N18.3 Chronic kidney disease, stage 3 (moderate); E78.5 Hyperlipidemia, unspecified; J39.8 Other specified diseases of upper respiratory tract; N40.1 Benign prostatic hyperplasia with lower urinary tract symptoms; R33.8 Other retention of urine; Z86.73 Personal history of transient ischemic attack (TIA), and cerebral infarction without residual deficits
CPT/HCPCS: 2NBP; 36415; 81001; 82436; 87040; 87070; 87086; 87449; 87450; 93005; 93010; 96374; 96375; J0131; J0696; J1630; J1644; J2920; J2930; J3490; J7042; J7626

== ENCOUNTER 2016-11-25 17:00 | Inpatient (IN) | payer OTHER ==
[~2016-11-25 17:00] MED LIST changes: +GUAIFENESIN400 MG PO; +LASIX20 M1 PO; +LUMIGAN2.5 ML OPH; +NAPROXEN500 M2 PO; +PAIN RELIEF650 MG PO
[2016-11-26 07:07] VITALS: BP 138/76
--- NOTE | 2016-11-26 12:07 | PN- Att Addend ---
Attending Addendum Attending Brief Note Patient appears comfortable. Granado was placed for urinary retention. Plan Continue current management Current Medications Sig/Chirag Start time Last Medication Dose Route Stop Time Status Admin Artificial Tears 2 GTT Q2P PRN 11/25 1730 AC OU Bisacodyl 10 MG DAILY NEEDED PRN 11/25 1730 AC [place] Glycerin 2 SPRAY Q4P PRN 11/25 1730 AC PO Glycerin/Mineral Oil 1 VAL Q8P PRN 11/25 1730 AC TOP Glycopyrrolate 400 MCG Q4P PRN 11/25 1730 AC SC Haloperidol 1 MG ONCE ONE 11/25 2115 DC 11/25 SC 11/25 2116 2111 Hydromorphone HCl 0.2 MG Q2P PRN 11/25 1800 AC 11/26 IV 1102 Hydromorphone HCl 0.3 MG Q2P PRN 11/25 1800 AC IV Hydromorphone HCl 0.4 MG Q2P PRN 11/25 1800 AC 11/26 IV 0828 Lorazepam 1 MG Q2P PRN 11/25 2115 AC 11/26 IV 1101 Lorazepam 1 MG Q4P PRN 11/25 1730 DC 11/25 IV 1845 Scopolamine HBr 1 PAT Q72 11/28 1000 AC TOP Trimethobenzamide HCl 200 MG ONCE PRN 11/25 1815 AC IM Vital Signs Date Time Temp Pulse Resp B/P B/P Pulse O2 O2 Flow FiO2 Mean Ox Delivery Rate 11/26 0707 97.6 75 20 138/76 91 Room Air
[2016-11-27 06:27] VITALS: BP 134/74
--- NOTE | 2016-11-27 08:45 | PN- Att Addend ---
Attending Addendum Attending Brief Note Patient's son and daughter were concerned yesterday about patient being lethargic secondary to morphine. According to patient's son Ashwin they were not informed that the hospice will entail discontinuing all home medications. I had a detailed discussion with patient's son who is the POA about the goals of hospice. Was decided to hold off on morphine and Ativan. Patient had episodes of agitation last night for which she was started on Haldol with good effect. He will remain on hospice and we will continue to accommodate families wishes if appropriate. On evaluation this morning patient is comfortable. Plan Hold off on morphine and Ativan Continue Haldol when necessary Increase scopolamine patch to 2 every 72 hours Current Medications Sig/Chirag Start time Last Medication Dose Route Stop Time Status Admin Artificial Tears 2 GTT Q2P PRN 11/25 1730 AC OU Bisacodyl 10 MG DAILY NEEDED PRN 11/25 1730 AC [place] Glycerin 2 SPRAY Q4P PRN 11/25 1730 AC PO Glycerin/Mineral Oil 1 VAL Q8P PRN 11/25 1730 AC TOP Glycopyrrolate 400 MCG Q4P PRN 11/25 1730 AC 11/27 SC 0813 Haloperidol 0.5 MG Q4P PRN 11/26 2245 AC 11/27 SC 0428 Hydromorphone HCl 0.2 MG Q2P PRN 11/25 1800 DC 11/26 IV 1102 Hydromorphone HCl 0.3 MG Q2P PRN 11/25 1800 DC IV Hydromorphone HCl 0.4 MG Q2P PRN 11/25 1800 DC 11/26 IV 0828 Lorazepam 2 MG ONE ONE 11/27 0500 DC IV 11/27 0501 Lorazepam 1 MG Q2P PRN 11/25 2115 DC 11/26 IV 1101 Morphine Sulfate 1 MG Q2P PRN 11/26 2245 AC 11/27 IV 0536 Scopolamine HBr 1 PAT Q72 11/28 1000 DC TOP Scopolamine HBr 2 PAT Q72 11/28 1000 AC TOP Trimethobenzamide HCl 200 MG ONCE PRN 11/25 1815 AC IM Vital Signs Date Time Temp Pulse Resp B/P B/P Pulse O2 O2 Flow FiO2 Mean Ox Delivery Rate 11/27 626 97.6 74 12 134/74 92 Room Air 11/26 1900 10 11/26 1600 14
[2016-11-28 06:30] VITALS: BP 120/58
--- NOTE | 2016-11-28 15:15 | PN- Hospice ---
See Addendum Subjective Subjective: Pt. has intermittent restlessness and anxiety. He has received 2 doses morphine for moaning, no haldol. He has not eaten today. Granado with small amount urine. Review of Systems Constitutional: Reports: see HPI. Objective Last 24 Hrs of Vital Signs/I&O Vital Signs Date Time Temp Pulse Resp B/P B/P Pulse O2 O2 Flow FiO2 Mean Ox Delivery Rate 11/28 0630 98.7 68 16 120/58 92 Room Air Intake & Output 11/28 1600 11/28 0800 11/28 0000 Intake Total 0 240 Output Total 75 100 50 Balance -75 -100 190 Intake, Oral 0 240 Number 0 Bowel Movements Output, Urine 75 100 50 Physical Exam General Appearance: no apparent distress, sleeping but rousable Head: atraumatic Respiratory: no respiratory distress, congested cough, scattered expiratory wheezes Cardiovascular: regular rate/rhythm Abdomen: soft, non-tender Extremities: no edema Neurologic/Psychiatric: sleeping but awakens to stimuli Current Medications: Current Medications Sig/Chirag Start time Last Medication Dose Route Stop Time Status Admin Artificial Tears 2 GTT Q2P PRN 11/25 1730 AC OU Bisacodyl 10 MG DAILY NEEDED PRN 11/25 1730 AC AL Glycerin 2 SPRAY Q4P PRN 11/25 1730 AC PO Glycerin/Mineral Oil 1 VAL Q8P PRN 11/25 1730 AC TOP Glycopyrrolate 400 MCG Q4P PRN 11/25 1730 AC 11/27 SC 2045 Haloperidol 0.5 MG Q4P PRN 11/26 2245 11/27 SC 2336 Morphine Sulfate 1 MG Q2P PRN 11/26 2245 11/28 IV 0928 Scopolamine HBr 2 PAT Q72 11/28 1000 11/28 TOP 0915 Trimethobenzamide HCl 200 MG ONCE PRN 11/25 1815 AC IM Assessment/Plan Assessment/Recommendations: Pt. is an 86-year-old male with past medical history of dementia now with recurrent aspiration pneumonia (family has declined PEG fo dysphagia) and super- imposed delirium, right hip fracture in May, admited to hospice care due to progressive decline. He is currently waiting for a bed at [facility], but one is not available. Comfortable. Continue with medications as needed.
[2016-11-29 06:46] VITALS: BP 108/58
--- NOTE | 2016-11-29 12:36 | PN- Hospice ---
Subjective Subjective: Pt. is arousable to stimuli but not conversant. Not taking food/fluids. He has received morphine x 1 overnight and haldol x 1 today. He has increased secretions. Review of Systems Constitutional: Reports: see HPI. Objective Last 24 Hrs of Vital Signs/I&O Vital Signs Date Time Temp Pulse Resp B/P B/P Pulse O2 O2 Flow FiO2 Mean Ox Delivery Rate 11/29 0800 Room Air 11/29 0646 99.3 74 10 108/58 90 Room Air Intake & Output 11/29 1600 11/29 0800 11/29 0000 Intake Total 0 0 Output Total 250 Balance -250 0 Intake, IV 0 Intake, Oral 0 0 Number 0 Bowel Movements Output, Urine 250 Physical Exam General Appearance: no apparent distress, comfortable, lethargic Head: atraumatic Ears, Nose, Throat: dry mucous membranes Respiratory: no respiratory distress, rhonchi Cardiovascular: regular rate/rhythm Abdomen: soft, non-tender Extremities: normal inspection (no edema, mottling) Other Physical Findings: holden with sia urine Assessment/Plan Assessment/Recommendations: Pt. is an 86-year-old male with past medical history of dementia now with recurrent aspiration pneumonia (family has declined PEG fo dysphagia) and super- imposed delirium, right hip fracture in May, admited to hospice care due to progressive decline. He is currently waiting for a bed at [facility], but one is not available. Comfortable. Continue with medications as needed. Increased secretions, will schedule Robinul 400mcg IV every 4 hrs Problem List: 1. Aspiration pneumonia 2. Delirium
--- NOTE | 2016-11-29 18:24 | PN- Pulmonary ---
Subjective HPI/Critical Care Issues: t. is arousable to stimuli but not conversant. Not taking food/fluids. He has received morphine x 1 overnight and haldol x 1 today. He has increased secretions. Review of Systems Constitutional: Reports: see HPI. Objective Current Medications: Current Medications Sig/Chirag Start time Last Medication Dose Route Stop Time Status Admin Artificial Tears 2 GTT Q2P PRN 11/25 1730 AC OU Bisacodyl 10 MG DAILY NEEDED PRN 11/25 1730 AC [place] Glycerin 2 SPRAY Q4P PRN 11/25 1730 AC PO Glycerin/Mineral Oil 1 VAL Q8P PRN 11/25 1730 AC TOP Glycopyrrolate 400 MCG Q4 11/29 1400 AC 11/29 IV 1733 Glycopyrrolate 400 MCG Q4P PRN 11/25 1730 AC 11/29 SC 1015 Haloperidol 0.5 MG Q4P PRN 11/26 2245 AC 11/29 SC 1822 Morphine Sulfate 1 MG Q2P PRN 11/26 2245 AC 11/29 IV 1733 Scopolamine HBr 2 PAT Q72 11/28 1000 AC 11/28 TOP 0915 Trimethobenzamide HCl 200 MG ONCE PRN 11/25 1815 AC IM Vital Signs & I&O Last 24 Hrs of Vitals and I&O: Vital Signs Date Time Temp Pulse Resp B/P B/P Pulse O2 O2 Flow FiO2 Mean Ox Delivery Rate 11/29 0800 Room Air 11/29 0646 99.3 74 10 108/58 90 Room Air Intake & Output 11/29 1600 11/29 0800 11/29 0000 Intake Total 0 0 Output Total 150 250 Balance -150 -250 0 Intake, IV 0 Intake, Oral 0 0 Number 0 Bowel Movements Output, Urine 150 250 Impression/Plan Impression/Plan Impression/Plan: Pt. is an 86-year-old male with past medical history of dementia now with recurrent aspiration pneumonia (family has declined PEG fo dysphagia) and super- imposed delirium, right hip fracture in May, admited to hospice care due to progressive decline. He is currently waiting for a bed at [facility], but one is not available. Comfortable. Continue with medications as needed. Increased secretions, will schedule Robinul 400mcg IV every 4 hrs
[2016-11-30 06:36] VITALS: BP 104/66
--- NOTE | 2016-11-30 13:41 | PN- Att Addend ---
Attending Addendum Attending Brief Note Sleeping comfortable Current Medications Sig/Chirag Start time Last Medication Dose Route Stop Time Status Admin Artificial Tears 2 GTT Q2P PRN 11/25 1730 AC OU Bisacodyl 10 MG DAILY NEEDED PRN 11/25 1730 AC [place] Glycerin 2 SPRAY Q4P PRN 11/25 1730 AC PO Glycerin/Mineral Oil 1 VAL Q8P PRN 11/25 1730 AC TOP Glycopyrrolate 400 MCG Q4 11/29 1400 AC 11/30 IV 1315 Glycopyrrolate 400 MCG Q4P PRN 11/25 1730 AC 11/29 SC 1015 Haloperidol 0.5 MG Q4P PRN 11/26 2245 AC 11/30 SC 0021 Morphine Sulfate 1 MG Q2P PRN 11/26 2245 AC 11/30 IV 0805 Scopolamine HBr 2 PAT Q72 11/28 1000 AC 11/28 TOP 0915 Trimethobenzamide HCl 200 MG ONCE PRN 11/25 1815 AC IM Vital Signs Date Time Temp Pulse Resp B/P B/P Pulse O2 O2 Flow FiO2 Mean Ox Delivery Rate 11/30 0636 98.8 81 20 104/66 90 Room Air Pt. is an 86-year-old male with past medical history of dementia now with recurrent aspiration pneumonia (family has declined PEG fo dysphagia) and super- imposed delirium, right hip fracture in May, admited to hospice care due to progressive decline. He is currently waiting for a bed at [facility], but one is not available. Comfortable. Continue with medications as needed. Keep here cont all meds may need to increase morphine if he starts having sig agonal breathing
[2016-12-01 06:03] VITALS: BP 134/70
--- NOTE | 2016-12-01 11:41 | PN- Att Addend ---
Attending Addendum Attending Brief Note Sleeping Swelling in the left parotid area consistant with prob parotitis Current Medications Sig/Chirag Start time Last Medication Dose Route Stop Time Status Admin Artificial Tears 2 GTT Q2P PRN 11/25 1730 AC OU Bisacodyl 10 MG DAILY NEEDED PRN 11/25 1730 AC UT Glycerin 2 SPRAY Q4P PRN 11/25 1730 AC PO Glycerin/Mineral Oil 1 VAL Q8P PRN 11/25 1730 AC TOP Glycopyrrolate 400 MCG Q4 11/29 1400 AC 12/01 IV 0908 Glycopyrrolate 400 MCG Q4P PRN 11/25 1730 AC 11/29 SC 1015 Haloperidol 0.5 MG Q4P PRN 11/26 2245 AC 12/01 SC 0908 Morphine Sulfate 1 MG Q2P PRN 12/01 0100 AC 12/01 SC 1125 Morphine Sulfate 1 MG Q2P PRN 11/26 2245 DC 11/30 IV 2246 Scopolamine HBr 2 PAT Q72 11/28 1000 AC 12/01 TOP 0907 Trimethobenzamide HCl 200 MG ONCE PRN 11/25 1815 AC IM Vital Signs Date Time Temp Pulse Resp B/P B/P Pulse O2 O2 Flow FiO2 Mean Ox Delivery Rate 12/01 0603 97.9 80 12 134/70 91 Room Air Pt. is an 86-year-old male with past medical history of dementia now with recurrent aspiration pneumonia (family has declined PEG fo dysphagia) and super- imposed delirium, right hip fracture in May, admited to hospice care due to progressive decline. He is currently waiting for a bed at [facility], but one is not available. Comfortable. Continue with medications as needed. Warm compress on to the face Hold glycopyrolate if stable cont all meds may need to increase morphine if he starts having sig agonal breathing
--- NOTE | 2016-12-01 15:30 | PN- Hospice ---
Subjective Subjective: Pt. is lethargic but arousable, unable to provide information. Not eating/ drinking. Periodically agitated, responds well to haldol-received 3 doses overnight to now, morphine x 5 overnight. Objective Last 24 Hrs of Vital Signs/I&O Vital Signs Date Time Temp Pulse Resp B/P B/P Pulse O2 O2 Flow FiO2 Mean Ox Delivery Rate 12/01 0603 97.9 80 12 134/70 91 Room Air Intake & Output 12/01 1600 12/01 0800 12/01 0000 Intake Total 0 0 Output Total 125 150 150 Balance -125 -150 -150 Intake, Oral 0 0 Output, Urine 125 150 150 Physical Exam General Appearance: no apparent distress, lethargic Head: right parotid area swollen, firm, nontender Ears, Nose, Throat: mucous membranes dry Respiratory: no respiratory distress, copious tracheal secretions Cardiovascular: regular rate/rhythm Extremities: no edema or mottling Other Physical Findings: holden with sia urine Assessment/Plan Assessment/Recommendations: Pt. is an 86-year-old male with past medical history of dementia now with recurrent aspiration pneumonia (family has declined PEG fo dysphagia) and super- imposed delirium, right hip fracture in May, admited to hospice care due to progressive decline. Right parotitis-warm compresses to area as Dr. Dill recommended. Would not change Robinul to as needed at this point due to significant tracheal secretions.
[2016-12-02 06:44] VITALS: BP 120/73
--- NOTE | 2016-12-02 14:22 | PN- Att Addend ---
Attending Addendum Attending Brief Note Worsening pain and abcess of his parotid gland pain and sig worsening of facial swelling REc Robinol and scopalamine patch and observe and if he has sig tracheal secretions then will resume Warm soaks for now Increase morphine for pain Discussed with the daughter at the bedside
--- NOTE | 2016-12-02 15:45 | PN- Hospice ---
See Addendum Subjective Subjective: Pt. responsive to stimuli but nonverbal. Not eating/drinking. Decreased urine output. Dr. crocker in earlier and increased morphine for pain and stopped scopolamine and Robinul secondary to increased swelling right jaw. Objective Last 24 Hrs of Vital Signs/I&O Vital Signs Date Time Temp Pulse Resp B/P B/P Pulse O2 O2 Flow FiO2 Mean Ox Delivery Rate 12/02 0644 98.3 84 16 120/73 91 Intake & Output 12/02 1600 12/02 0800 12/02 0000 Intake Total 0 0 Output Total 125 75 150 Balance -125 -75 -150 Intake, Oral 0 0 Output, Urine 125 75 150 Physical Exam General Appearance: elderly, frail male, eyes open, NAD Ears, Nose, Throat: dry mucous membranes, hard swelling under right jawline-ear to chin Respiratory: minimal tracheal secretions Cardiovascular: regular rate/rhythm Extremities: mottling left heel Assessment/Plan Assessment/Recommendations: Pt. is an 86-year-old male with past medical history of dementia now with recurrent aspiration pneumonia (family has declined PEG fo dysphagia) and super- imposed delirium, right hip fracture in May, admited to hospice care due to progressive decline. Morphine increased to 2mg SC every 1 hr as needed Continue haldol as needed Continue warm compresses to right jaw
[2016-12-03 06:39] VITALS: BP 128/75
--- NOTE | 2016-12-03 13:39 | PN- Att Addend ---
Attending Addendum Attending Brief Note Mr. Cross was visited today. He awakens and is minimally responsive. Inc. he has no complaints. He is afebrile with stable vital signs. His goal exam is notable only for swelling of his right parotid gland. We have discontinued his scopolamine and Robinul and will continue to apply warm compresses to his right parotid. Other supportive measures will be continued.
[2016-12-04 06:03] VITALS: BP 112/60
--- NOTE | 2016-12-04 16:07 | PN- Att Addend ---
Attending Addendum Attending Brief Note Mr. Cross is unresponsive to voice today. He is afebrile with adequate vital signs. His exam is essentially unchanged. We are continuing to provide care per his hospice protocol.
[2016-12-05 07:28] VITALS: BP 82/40
--- NOTE | 2016-12-05 16:06 | PN- Hospice ---
Subjective Subjective: Pt. has had increased secretions today. Utilizing morphine and haldol, trendelenberg, with positive effect. Not taking oral nutrition, little urine in holden, not conversant, but moaning-more so when visitors present. Received morphine x 8 overnight, haldol x 4. Haldol dose increased by PCP. Objective Last 24 Hrs of Vital Signs/I&O Vital Signs Date Time Temp Pulse Resp B/P B/P Pulse O2 O2 Flow FiO2 Mean Ox Delivery Rate 12/05 0728 97.7 115 18 82/40 95 Room Air Intake & Output 12/05 1600 12/05 0800 12/05 0000 Intake Total 0 Output Total 75 100 Balance -75 -100 0 Intake, Oral 0 Output, Urine 75 100 Physical Exam General Appearance: no apparent distress Head: swelling (right jawline, hard to touch) Respiratory: no respiratory distress, moderate tracheal secretions Cardiovascular: tachycardia Extremities: no edema, no mottling Assessment/Plan Assessment/Recommendations: Pt. is an 86-year-old male with past medical history of dementia now with recurrent aspiration pneumonia (family has declined PEG fo dysphagia) and super- imposed delirium, right hip fracture in May, admited to hospice care due to progressive decline. Secretions-resume scopolamine patch, cntinue haldol and morphine. Morphine dose increased to 3mg. Problem List: 1. Aspiration pneumonia 2. Delirium 3. Dementia 4. Parotitis
--- NOTE | 2016-12-06 09:39 | PN- Att Addend ---
Attending Addendum Attending Brief Note PT was comfortable and this am met with the family and offered support
--- NOTE | 2016-12-06 13:44 | Discharge Summary ---
Visit Information Visit Dates Admission Date: 11/25/16 Discharge Date: 12/06/16 Hospital Course Course Attending Physician: NAY LARSON MD Primary Care Physician: NAY LARSON MD Hospital Course: Pt. is an 86-year-old male with past medical history of dementia now with recurrent aspiration pneumonia (family has declined PEG for dysphagia) and super -imposed delirium, right hip fracture in May, admitted to hospice care at [facility] due to progressive decline and awaiting bed to become available at [facility]. While here pt. continued to decline, required haldol for agitation, became less alert and required morphine for pain. He was treated with scopolamine and Robinul for congestion and developed right parotitis secondary to dry mouth. Medicines for secretions were discontinued, warm compresses applied to right jawline. Secretions again became copious despite increase in morphine and haldol and scopolamine restarted. Pt appeared comfortable when he this morning. Allergies: Coded Allergies: lorazepam (From ATIVAN) (UNKNOWN DO NOT GIVE PER FAMILY 11/28/16) oxycodone (From PERCOCET) (HALLUCINATIONS 05/30/16) Disposition Summary Disposition Principal Diagnosis: Aspiration pneumonia Dysphagia Delirium, acute Parotitis, right, acute Additional Diagnosis: Dementia with behavioral disturbance Discharge Disposition: Discharge Instructions General Discharge Information Code Status: Hospice Patient's Diet: N/A Patient's Activity: N/A Follow-Up Instructions/Appts: N/A Copies To: NAY LARSON MD
== END 2016-12-06 05:40 | disposition expired | DRG 178 ==
LOC: 2NA 17:00
PROVIDERS: ADMIT Internal Medicine Pulmonary Disease
DX: J69.0 Pneumonitis due to inhalation of food and vomit (principal); Z51.5 Encounter for palliative care; F05 Delirium due to known physiological condition; R13.10 Dysphagia, unspecified; F03.91 Unspecified dementia, unspecified severity, with behavioral disturbance; K11.21 Acute sialoadenitis
CPT/HCPCS: 87086; J1630; J2060; J2270; J3250